=== PATIENT | male | born 1975 | race Caucasian/White ===

== ENCOUNTER 2025-06-26 10:24 | Emergency (ER) | payer MEDICAID, SELFPAY ==
[2025-06-26 10:26] VITALS: BP 139/97; PULSE 78; RESP 20; TEMP 37.2; O2SAT 100; BMI 20.7
--- NOTE | 2025-06-26 10:37 | EX.ED.DYSGE1 ---
HPI History of Present Illness Chief Complaint: General Illness Informant: patient Onset/Context/Timing Onset: Today Context: Sudden Onset Timing: Continuous Quality: Pressure Location: Head Worsened by: Nothing Relieved by: Nothing Narrative Narrative: Patient presents with episodes of unresponsiveness that occurred this morning. Patient lives in an extended care facility. Patient admits to a generalized headache. Patient describes it as a pressure. Patient states it is diffuse across his entire head. Patient states he has had fevers up to 102. Patient also admits to some blurred vision. Patient states he also has pain in his neck. Patient denies any chest pain or shortness of breath. Patient denies any cough. Patient denies any nausea or vomiting PFSH PFSH Home Medications ?Medication ?Instructions ?Recorded ?Last Taken ?Type bupropion HCl 150 mg 24 hr tablet, 150 mg PO DAILY 03/09/16 Unknown History extended release hydrocodone-acetaminophen 5-325mg 1 - 2 tab PO Q4H PRN PRN Pain ##20 03/09/16 Unknown Rx 5mg-325mg naproxen 500 mg tablet 500 mg PO BID #20 tabs 03/09/16 Unknown Rx Allergy/AdvReac Type Severity Reaction Status Date / Time No Known Allergies Allergy Verified 03/09/16 17:14 Social History Smoking Status: Current every day smoker tobacco type: cigarettes ROS ROS ED Constitutional Constitutional ED: Reports fever(s); Denies chills Eyes Eyes: Reports blurry vision; Denies change in vision ENT ENT ED: Denies rhinorrhea or sore throat Cardiovascular Cardiovascular: Denies chest pain or palpitations Respiratory/Chest Respiratory/Chest: Denies cough or dyspnea Gastrointestinal Gastrointestinal: Denies nausea or vomiting Genitourinary Genitourinary ED: Denies dysuria or hematuria Musculoskeletal Musculoskeletal: Reports neck pain; Denies back pain Integumentary Denies abscess or rash Neurologic Neurologic: Denies headache(s) or weakness Allergic/Immunologic Allergic/Immunologic ED: Denies mouth swelling or urticaria EXAM Physical Exam Const Vital Signs: 06/26/25 10:26 06/26/25 10:26 06/26/25 12:25 Temperature 98.9 F Temperature Source Oral Pulse Rate 78 67 Respiratory Rate 20 H 19 H Respiratory Effort Normal Non-Labored Respiratory Pattern Normal Blood Pressure 139/97 H 141/88 H Blood Pressure Mean 111 105 Pulse Ox 100 95 Oxygen Delivery Method Room Air Room Air 06/26/25 14:03 Temperature Temperature Source Pulse Rate 68 Respiratory Rate 20 H Respiratory Effort Respiratory Pattern Blood Pressure 137/83 H Blood Pressure Mean 101 Pulse Ox 99 Oxygen Delivery Method Room Air Positive well nourished and well developed General Appearance ED: well developed and NAD HEENT Reports moist mucous membranes Eyes PERRL and EOMs intact bilaterally Neck supple and no JVD Resp normal respiratory effort and clear to auscultation bilaterally Cardio regular rate and regular rhythm GI non-tender and non-distended Palpation: soft Extremity normal to inspection Neuro oriented x3 and CN's II-XII intact bilaterally Sensorium / Orientation: alert Motor Exam: strength 5/5 throughout Psych Mood & Affect: depressed MDM MDM MDM Narrative Medical decision making narrative: Differential diagnosis includes intracranial bleeding, stroke, electrolyte abnormality, tension headache, migraine headache, sinusitis, sepsis, urinary tract infection, and anxiety. CT scan of the brain will be obtained to assess for intracranial bleeding and stroke. CBC will be obtained to assess for leukocytosis and anemia. Basic metabolic profile will be obtained to assess for electrolyte abnormality and renal function. Serum lactate will be obtained to assess for sepsis. Urinalysis will be obtained to assess for urinary tract infection and hematuria. Lab Data Attestation: I reviewed the patient's lab results. Lab results narrative: CBC was reviewed. There is a mild leukocytosis of 12.1. There is a mild anemia with a hemoglobin of 11.9 and hematocrit of 36.5. Basic metabolic profile was reviewed and was within normal limits. PT was INR and PTT were reviewed and were within normal limits. Serum lactate was reviewed and was less than 1.0. Urinalysis was reviewed. There is no evidence of urinary tract infection or hematuria. Labs: Laboratory Results - last 24 hr 06/26/25 06/26/25 11:15 13:30 WBC 12.1 H RBC 4.04 L Hgb 11.9 L Hct 36.5 L MCV 90.3 MCH 29.5 MCHC 32.6 RDW Std Deviation 47.6 H RDW Coeff of Dyllan 14.3 Plt Count 252 MPV 11.7 Immature Gran % (Auto) 0.300 Neut % (Auto) 56.4 Lymph % (Auto) 17.6 L Jenkins % (Auto) 6.7 Eos % (Auto) 18.8 H Baso % (Auto) 0.2 Absolute Neuts (auto) 6.8 Absolute Lymphs (auto) 2.12 Nucleated RBC % 0 Platelet Estimate ADEQUATE PT 12.7 INR 0.9 APTT 24.0 L Sodium 141 Potassium 4.3 Chloride 106 Carbon Dioxide 23.6 Anion Gap 12 BUN 12 Creatinine 0.60 L Estim Creat Clear Calc 129.17 Est GFR (MDRD) Non-Af 118 BUN/Creatinine Ratio 19.4 Glucose 94 Lactic Acid < 1.0 Calcium 9.6 Urine Color Yellow Urine Clarity Clear Urine pH 6.0 Ur Specific [place] 1.010 Urine Protein Negative Urine Glucose (UA) Normal Urine Ketones Negative Urine Occult Blood Negative Urine Nitrite Negative Urine Bilirubin Negative Urine Urobilinogen Normal Ur Leukocyte Esterase Negative Urine RBC 0-5 SEEN Urine WBC 0-5 SEEN Ur Squamous Epith Cells 0-5 SEEN Urine Bacteria 0 SEEN Urine Mucus 0 SEEN Radiography Chest X-Ray - ED: 2 View, Read by ED Physician, Read by Radiologist and No Acute Disease Diagnostic Testing: Clinical Impression(s) from Imaging Studies Chest X-Ray 06/26/25 10:49 IMPRESSION: NO ACUTE FINDINGS. Reading Location: [id number] Brain CT 06/26/25 11:25 IMPRESSION: 1. No acute intracranial hemorrhage, midline shift or mass effect. If symptoms persist, further evaluation with MRI is recommended. 2. Mild small vessel ischemic/degenerative changes. Reading [facility] and lateral chest x-ray was obtained. There are 2 views. On my independent interpretation, lung dsouza are clear. There is normal cardiac silhouette. Bony thorax is normal. There is no acute process noted. Radiologist also interpreted the x-ray and agrees. CT scan of the brain was obtained. There is no acute intracranial abnormality. There are mild chronic changes. This was interpreted by the radiologist and was also independently reviewed by myself. Treatment and Re-Evaluation :: Patient was given IV fluids, Reglan, and Benadryl. Patient is resting comfortably on reevaluation. Patient was advised of his findings. Patient is eating and tolerating his diet well. Patient was instructed to drink plenty of fluids. Patient was instructed to follow-up with his primary care physician in 5 to 7 days. Patient was instructed to return if worse in any way. Patient understood and was agreeable with the plan. All questions were answered. Case was also discussed with the daughter by phone. She was advised of the patient's findings. She reports that the patient had a finding of Warnicke's encephalopathy in the past on an MRI. She was agreeable to having the patient discharged back to extended-care facility. All questions were answered. Discharge Plan Triage Chief Complaint: General Illness ED Provider: Anthony Davila Dx/Rx/DC Orders Clinical Impression: Headache, Elevated blood pressure reading Instructions: ED, Migraine (Classical) Prescriptions: No Action bupropion HCl 150 MG tablet extended release 24 hr 150 mg PO DAILY hydrocodone-acetaminophen 1 TABLET tablet 1 - 2 tab PO Q4H PRN PRN (Reason: Pain) Qty: 20 0RF naproxen 500 MG tablet 500 mg PO BID Qty: 20 0RF Primary Care Provider: Care Physician,No Primary Referrals: Amparo Calero MD [Non-Staff] - Care Physician,No Primary [Primary Care Provider] - 5-7 Days Print Language: Italian Disposition Disposition: Home, Self Care
--- NOTE | 2025-06-26 10:49 | RAD_ITS ---
PROCEDURE: CHEST PA AND LATERAL 06/26/2025 REASON FOR EXAM: FEVER TECHNIQUE: CHEST PA AND LATERAL COMPARISON: None FINDINGS: Hardware: EKG electrodes are seen. Heart: The heart size is normal. Mediastinum: The mediastinal contour is unremarkable. Lungs: The lungs are clear. Bones: The bones are unremarkable. RAD/Chest PA and Lateral IMPRESSION: NO ACUTE FINDINGS. Reading Location: [id number]
[2025-06-26] MEDS: DiphenhydrAMINE 50 MG/ML Syringe 25 MG IV (11:15)
[2025-06-26] MEDS: 0.9% Normal Saline (1000mL) 1,000 ML 1000 ML IV (11:16)
[2025-06-26 11:24] LABS: Hematocrit 36.5 % (40-54); Hemoglobin 11.9 g/dL (13.0-16.5); Immature Granulocytes Count 0.040 X10^3/uL (0.0-0.0); Mean Corp Hgb Conc 32.6 g/dL (32-36); Mean Corpuscular Volume 90.3 fL (80-94); Mean Platelet Vol. 11.7 fl (6.2-12.0); NRBC Flagged by Analyzer 0 % (0-5); POSITIVE DIFFERENTIAL YES; Platelet Count 252 K/mm3 (150-450); RBC Distribution Width CV 14.3 % (11.6-14.6); RBC Distribution Width SD 47.6 fl (35.1-43.9); Red Blood Count 4.04 M/mm3 (4.6-6.2); White Blood Count 12.1 K/mm3 (4.4-11.0)
[2025-06-26 11:25] LABS: Differential Indicated SCAN CRITERIA MET
--- NOTE | 2025-06-26 11:25 | CT_ITS ---
EXAM: CT Head Without Intravenous Contrast CLINICAL INDICATION: HEADACHE TECHNIQUE: Axial computed tomography images of the head/brain without intravenous contrast. This CT exam was performed using one or more of the following dose reduction techniques: automated exposure control, adjustment of the mA and/or kV according to patient size, and/or use of iterative reconstruction technique. COMPARISON: No relevant prior studies available. FINDINGS: BRAIN AND EXTRA-AXIAL SPACES: The cerebral and cerebellar sulci are mildly prominent consistent with mild brain atrophy. No acute intracranial hemorrhage, midline shift or mass effect. If symptoms persist, further evaluation with MRI is recommended. Mild areas of decreased attenuation in the deep cerebral white matter are consistent with mild small vessel ischemic/degenerative changes. BONES/JOINTS: Unremarkable. No acute fracture. SOFT TISSUES: Unremarkable. SINUSES: Unremarkable as visualized. No acute sinusitis. MASTOID AIR CELLS: Unremarkable as visualized. No mastoid effusion. CT/Brain/Head without Contrast IMPRESSION: 1. No acute intracranial hemorrhage, midline shift or mass effect. If symptoms persist, further evaluation with MRI is recommended. 2. Mild small vessel ischemic/degenerative changes. Reading [facility]
[2025-06-26 11:32] LABS: Prothrombin Time (Protime)PT. 12.7 SECONDS (11.7-14.9)
[2025-06-26 11:33] LABS: Partial Thromboplast Time 24.0 Seconds (24.1-36.2)
[2025-06-26 12:16] LABS: Anion Gap 12 (5-15); BUN 12 mg/dL (4-19); BUN/Creat Ratio 19.4 RATIO (10-20); Calcium,Total 9.6 mg/dL (7.6-11.0); Carbon Dioxide 23.6 mmol/L (21.0-32.0); Chloride 106 mmol/L (98-108); Estimated Creatinine Clearance 129.17 ml/min (50-250); Glucose 94 mg/dL (70-99); Potassium 4.3 mmol/L (3.3-5.1)
[2025-06-26 12:25] VITALS: BP 141/88; PULSE 67; RESP 19; O2SAT 95
[2025-06-26 13:39] LABS: Mucous, Urine 0 SEEN /hpf (<or=2+)
[2025-06-26 13:42] LABS: Color, Urine Yellow (Yellow); Glucose, Dipstick Normal (Normal); Ketone-Dipstick Negative (Negative); Leukocyte Esterase-Dipstick Negative /ul (Negative); Nitrite-Dipstick Negative (Negative); Occult Blood-Urine Negative /ul (Negative); Protein-Dipstick Negative (Negative); Specific Gravity, Urine 1.010 (1.002-1.030); Urine Bilirubin Dipstick Negative (Negative)
[2025-06-26 14:03] VITALS: BP 137/83; PULSE 68; RESP 20; O2SAT 99
[2025-06-26 14:21] LABS: Red Blood Cells-Urine 0-5 SEEN /hpf (0-5); Squamous Epithelial Cells - UA 0-5 SEEN /hpf (0-5)
--- NOTE | 2025-06-26 15:39 | ED.RN ---
Pt gives verbal consent for Dr. Davila to discuss results and prognosis with his daughter Maria Fernanda.
[2025-06-26 16:12] VITALS: BP 128/72; PULSE 78; RESP 18; TEMP 36.6; O2SAT 95
--- NOTE | 2025-06-26 16:39 | ED.RN ---
This RN called report to Kishan at [facility].
== END 2025-06-26 16:45 | disposition home or self-care (01) ==
PROVIDERS: Emergency Provider Emergency Medicine; Visit Provider Emergency Medicine
DX: R51.9 Headache, unspecified (principal); R03.0 Elevated blood-pressure reading, without diagnosis of hypertension; M54.2 Cervicalgia; F17.210 Nicotine dependence, cigarettes, uncomplicated; Z79.899 Other long term (current) drug therapy
CPT/HCPCS: 70450; 71046; 80048; 81001; 83605; 85025; 85610; 85730; 87631; 96361; 96374; 96375; 99285

== ENCOUNTER 2025-07-22 19:17 | Emergency (ER) | payer MEDICAID, SELFPAY ==
[2025-07-22 19:21] VITALS: BP 122/94; PULSE 79; RESP 16; TEMP 36.9; O2SAT 98; BMI 22.6
--- NOTE | 2025-07-22 19:42 | CT_ITS ---
PROCEDURE: CT BRAIN/HEAD WITHOUT CONTRAST 07/22/2025 REASON FOR EXAM: NEW ONSET SEIZURE, HEAD TRAUMA TECHNIQUE: Procedure Code: CTBR Modality: CT Procedure: BRAIN/HEAD WITHOUT CONTRAST Coronal and Sagittal reconstruction series were provided. One or more dose reduction techniques were used (e.g., Automated exposure control, adjustment of the mA and/or kV according to patient size, use of iterative reconstruction technique. RADIATION DOSE SUMMARY: DLP: 1167.29 mGycm COMPARISON: 06/26/2025 FINDINGS: Similar appearance of parenchymal hypoattenuation involving the posterior right frontoparietal cortex mainly involving the postcentral gyrus, most likely subacute-chronic ischemic infarct. Mild chronic microangiopathic changes elsewhere in the supratentorial white matter. No acute intracranial hemorrhage, extra-axial collection, mass-effect, or hydrocephalus. Unremarkable orbits. Atherosclerotic vascular calcifications. Intact skull base and calvarium. Well-aerated paranasal sinuses and bilateral mastoid air cells. CT/Brain/Head without Contrast IMPRESSION: No evidence of acute intracranial pathology. Stable appearing probable subacute-chronic infarct involving the posterior righ t frontoparietal cortex. Reading Location: [facility]
--- NOTE | 2025-07-22 19:42 | CT_ITS ---
PROCEDURE: SPINE CERVICAL WITHOUT CONTRAS 07/22/2025 REASON FOR EXAM: NECK PAIN STATUS POST FALL TECHNIQUE: Procedure Code: CTSPC Modality: CT Procedure: SPINE CERVICAL WITHOUT CONTRAS Coronal and Sagittal reconstruction series were provided. One or more dose reduction techniques were used (e.g., Automated exposure control, adjustment of the mA and/or kV according to patient size, use of iterative reconstruction technique. RADIATION DOSE SUMMARY: CTDlvol: 2 1 mGy DLP: 371 mGycm FINDINGS: No evidence acute fracture or dislocation. Vertebral body heights are maintained. Mild degenerative changes of the visualized spine. Normal alignment. Atherosclerosis. CT/Spine Cervical without Contras IMPRESSION: No acute cervical spine fracture. Reading Location: [id number]
[2025-07-22 19:44] LABS: Hematocrit 35.9 % (40-54); Hemoglobin 11.6 g/dL (13.0-16.5); Immature Granulocytes Count 0.050 X10^3/uL (0.0-0.0); Mean Corp Hgb Conc 32.3 g/dL (32-36); Mean Corpuscular Volume 87.1 fL (80-94); Mean Platelet Vol. 11.1 fl (6.2-12.0); NRBC Flagged by Analyzer 0 % (0-5); Platelet Count 309 K/mm3 (150-450); RBC Distribution Width CV 14.2 % (11.6-14.6); RBC Distribution Width SD 45.3 fl (35.1-43.9); Red Blood Count 4.12 M/mm3 (4.6-6.2); White Blood Count 11.9 K/mm3 (4.4-11.0)
--- NOTE | 2025-07-22 19:53 | EX.ED.DYSGE1 ---
HPI History of Present Illness Chief Complaint: Seizure [facility] Medical History (Updated 07/22/25 @ 21:[address] Kyle Lewis MD) Falls Abnormal gait Wernicke encephalopathy CVA (cerebral vascular accident) Hemiparesis Hemiplegia Malnutrition GERD (gastroesophageal reflux disease) Anxiety Depression Alcohol abuse HTN (hypertension) Home Medications ?Medication ?Instructions ?Recorded ?Last Taken ?Type bupropion HCl 150 mg 24 hr tablet, 150 mg PO DAILY 03/09/16 Unknown History extended release acetaminophen 325 mg capsule 650 mg PO Q4H PRN fever or pain 07/22/25 Unknown History acetaminophen 650 mg rectal 650 mg MT Q4H 07/22/25 Unknown History suppository aspirin 81 mg capsule 81 mg PO DAILY 07/22/25 Unknown History atorvastatin 80 mg tablet (Lipitor) 80 mg PO QHS 07/22/25 Unknown History clonazepam 0.5 mg tablet (Klonopin) 0.5 mg PO BID 07/22/25 Unknown History escitalopram oxalate 10 mg tablet 10 mg PO DAILY 07/22/25 Unknown History (Lexapro) folic acid 1 mg tablet 1 mg PO DAILY 07/22/25 Unknown History levetiracetam 500 mg tablet 500 mg PO BID #60 tabs 07/22/25 Unknown Rx (Keppra) metoprolol tartrate 25 mg tablet 25 mg PO BID 07/22/25 Unknown History multivitamin (Daily Multi-Vitamin 1 tab PO DAILY 07/22/25 Unknown History tablet) pantoprazole 40 mg tablet,delayed 40 mg PO DAILY 07/22/25 Unknown History release thiamine HCl (vitamin B1) 100 mg 100 mg PO DAILY 07/22/25 Unknown History tablet tramadol 50 mg tablet 50 mg PO Q8H 07/22/25 Unknown History Allergy/AdvReac Type Severity Reaction Status Date / Time No Known Allergies Allergy Verified 07/22/25 19:19 Social History Smoking Status: Current every day smoker tobacco type: cigarettes EXAM Physical Exam Const Vital Signs: 07/22/25 19:21 07/22/25 19:59 Temperature 98.5 F Temperature Source Oral Pulse Rate 79 75 Respiratory Rate 16 14 Blood Pressure 122/94 H 124/82 H Blood Pressure Mean 103 96 Pulse Ox 98 100 Oxygen Delivery Method Room Air Room Air [facility] MDM Lab Data Attestation: I reviewed the patient's lab results. Lab results narrative: CBC reveals slightly elevated white count and mild anemia. Electrolyte panel reveals a normal CO2 anion gap. Glucose slight elevated 117. BUN to creatinine ratio slightly elevated. Labs: Laboratory Results - last 24 hr 07/22/25 19:36 WBC 11.9 H RBC 4.12 L Hgb 11.6 L Hct 35.9 L MCV 87.1 MCH 28.2 MCHC 32.3 RDW Std Deviation 45.3 H RDW Coeff of Dyllan 14.2 Plt Count 309 MPV 11.1 Immature Gran % (Auto) 0.400 Neut % (Auto) 53.9 Lymph % (Auto) 25.0 [place] % (Auto) 8.2 Eos % (Auto) 12.1 H Baso % (Auto) 0.4 Absolute Neuts (auto) 6.4 Absolute Lymphs (auto) 2.98 Nucleated RBC % 0 Sodium 141 Potassium 4.6 Chloride 106 Carbon Dioxide 23.8 Anion Gap 11 BUN 22 H Creatinine 0.70 Estim Creat Clear Calc 120.54 Est GFR (MDRD) Non-Af 112 BUN/Creatinine Ratio 32.0 H Glucose 114 H Calcium 9.7 Radiography Diagnostic Testing: Clinical Impression(s) from Imaging Studies Brain CT 07/22/25 19:42 IMPRESSION: No evidence of acute intracranial pathology. Stable appearing probable subacute-chronic infarct involving the posterior right frontoparietal cortex. Reading Location: [facility] Cervical Spine CT 07/22/25 19:42 IMPRESSION: No acute cervical spine fracture. Reading Location: [id number] CT of the head and cervical spine was [place] by ky [place] [address]. CT of the head reveals prior left hemispheric stroke. There is no evidence of acute bleed. There is no evidence of fracture. There is no fluid in the sinuses. The cervical spine CT reveals no fracture, subluxation dislocation. There is no prevertebral soft tissue swelling noted. Treatment and Re-Evaluation :: Patient was loaded with Keppra. He was discharged prescription for Keppra. Daughter who is the POA and a nurse informing that he also has Warnicke's encephalopathy. He was diagnosed with that in April. That may be the cause of his seizure as well as the fact that he had a stroke earlier this year. Discharge Plan Triage Chief Complaint: Seizure ED Provider: Kyle Lewis Dx/Rx/DC Orders Clinical Impression: New onset seizure with history of head trauma, Wernicke encephalopathy, Neuropathy, Acute cervical myofascial strain Instructions: ED Seizure New [facility] Adult Prescriptions: New levetiracetam [Keppra] 500 mg tablet 500 mg PO BID Qty: 60 0RF No Action bupropion HCl 150 MG tablet extended release 24 hr 150 mg PO DAILY acetaminophen 650 mg suppository 650 mg MT Q4H acetaminophen 325 mg capsule 650 mg PO Q4H PRN (Reason: fever or pain) aspirin 81 mg capsule 81 mg PO DAILY atorvastatin [Lipitor] 80 mg tablet 80 mg PO QHS clonazepam [Klonopin] 0.5 mg tablet 0.5 mg PO BID folic acid 1 mg tablet 1 mg PO DAILY escitalopram oxalate [Lexapro] 10 mg tablet 10 mg PO DAILY metoprolol tartrate 25 mg tablet 25 mg PO BID multivitamin [Daily Multi-Vitamin] Tablet 1 tab PO DAILY pantoprazole 40 mg tablet,delayed release (DR/EC) 40 mg PO DAILY thiamine HCl (vitamin B1) 100 mg tablet 100 mg PO DAILY tramadol 50 mg tablet 50 mg PO Q8H Primary Care Provider: Amadeo Zazueta Referrals: Care Physician,No Primary [Non-Staff] - Activity Restrictions/Additional Instructions: The [facility] facility physician will need to check a Keppra level in 1 week. Print Language: Afghan Disposition Disposition: Home, Self Care
[2025-07-22] MEDS: LEVETIRACETAM IV (19:58)
[2025-07-22] MEDS: NORMAL SALINE 0.9% IV (19:58)
[2025-07-22 19:59] VITALS: BP 124/82; PULSE 75; RESP 14; O2SAT 100
[2025-07-22 20:18] LABS: Anion Gap 11 (5-15); BUN 22 mg/dL (4-19); BUN/Creat Ratio 32.0 RATIO (10-20); Calcium,Total 9.7 mg/dL (7.6-11.0); Carbon Dioxide 23.8 mmol/L (21.0-32.0); Chloride 106 mmol/L (98-108); Estimated Creatinine Clearance 120.54 ml/min (50-250); Glucose 114 mg/dL (70-99); Potassium 4.6 mmol/L (3.3-5.1)
[2025-07-22] MEDS: HYDROcodone Bitartrate/Apap 5/325 Tablet PO (20:50)
[2025-07-22 22:00] VITALS: BP 118/94; PULSE 75; RESP 12
[2025-07-22 22:20] VITALS: BP 126/92; PULSE 84; RESP 18; TEMP 36.8; O2SAT 98
[2025-07-22 23:00] VITALS: BP 125/92
== END 2025-07-22 23:06 | disposition home or self-care (01) ==
PROVIDERS: Emergency Provider Emergency Medicine; Visit Provider Emergency Medicine
DX: R56.9 Unspecified convulsions (principal); I69.359 Hemiplegia and hemiparesis following cerebral infarction affecting unspecified side; I10 Essential (primary) hypertension; F32.A Depression, unspecified; Z79.899 Other long term (current) drug therapy; Z79.82 Long term (current) use of aspirin; F41.9 Anxiety disorder, unspecified; K21.9 Gastro-esophageal reflux disease without esophagitis; F17.210 Nicotine dependence, cigarettes, uncomplicated; E51.2 Wernicke's encephalopathy; G62.9 Polyneuropathy, unspecified; S16.1XXA Strain of muscle, fascia and tendon at neck level, initial encounter; E78.00 Pure hypercholesterolemia, unspecified
CPT/HCPCS: 70450; 72125; 80048; 85025; 96365; 99285; A4216

== ENCOUNTER 2025-07-27 23:44 | Emergency (ER) | payer MEDICAID, SELFPAY ==
[2025-07-27 23:44] VITALS: BP 114/83; PULSE 62; RESP 16; TEMP 36.7; O2SAT 99; BMI 21.8
--- NOTE | 2025-07-28 00:01 | EDS_ITS ---
HPI History of Present Illness Chief Complaint: Seizure Informant: patient Onset/Context/Timing Onset: Today Context: Sudden Onset Timing: Intermittent Quality: Dizzy Location: Generalized Worsened by: Nothing Relieved by: Nothing Narrative Narrative: Patient presents with a seizure that occurred today. Patient states he remembers feeling dizzy. Patient states the next thing he remembers is waking up with people around him. Patient denies biting his tongue. Patient denies any loss of bowel or bladder control. Patient admits to a headache. Patient states he felt like he had a fever earlier today. Patient states nothing seems to bring this on. Patient is on Keppra for seizures. Patient was recently started on this earlier this month. Patient states he has been compliant with this. Patient states he has not missed any doses. [facility] Medical History Seizure Falls Abnormal gait Wernicke encephalopathy CVA (cerebral vascular accident) Hemiparesis Hemiplegia Malnutrition GERD (gastroesophageal reflux disease) Anxiety Depression Alcohol abuse HTN (hypertension) Home Medications ?Medication ?Instructions ?Recorded ?Last Taken ?Type acetaminophen 325 mg capsule 650 mg PO Q4H PRN fever o r pain 07/22/25 Unknown History acetaminophen 650 mg rectal 650 mg NE Q4H 07/22/25 Unk nown History suppository aspirin 81 mg capsule 81 mg PO DAILY 07/22/25 Unkn own History atorvastatin 80 mg tablet (Lipitor) 80 mg PO QHS 07/22 Unknown History clonazepam 0.5 mg tablet (Klonopin) 0.5 mg PO BID 07/07 04/30 Unknown History escitalopram oxalate 10 mg tablet 10 mg PO DAILY 07/22 Unknown History (Lexapro) folic acid 1 mg tablet 1 mg PO DAILY 07/22/25 Unkno wn History levetiracetam 500 mg tablet 500 mg PO BID #60 tabs Unknown Rx (Keppra) metoprolol tartrate 25 mg tablet 25 mg PO BID 07/22/25 Unknown History multivitamin (Daily Multi-Vitamin 1 tab PO DAILY 07/22 Unknown History tablet) pantoprazole 40 mg tablet,delayed 40 mg PO DAILY 07/22 Unknown History release thiamine HCl (vitamin B1) 100 mg 100 mg PO DAILY 07/22 Unknown History tablet tramadol 50 mg tablet 50 mg PO Q8H 07/22/25 Unknow n History Allergy/AdvReac Type Severity Reaction Status Date / Time No Known Allergies Allergy Verified 07/27/25 23:44 Surgical History no surgical history no surgical history Social History (Updated 07/28/25 @ 00:[address] Anthony Davila, DO) Smoking Status: Current every day smoker tobacco type: cigarettes substance use type: marijuana ROS ROS ED Constitutional Constitutional ED: Reports fever(s) and subjective; Denies chills Eyes Eyes: Denies blurry vision or change in vision ENT ENT ED: Denies rhinorrhea or sore throat Cardiovascular Cardiovascular: Denies chest pain or palpitations Respiratory/Chest Respiratory/Chest: Denies cough or dyspnea Gastrointestinal Gastrointestinal: Reports nausea; Denies vomiting Genitourinary Genitourinary ED: Denies dysuria or hematuria Musculoskeletal Musculoskeletal: Reports neck pain; Denies back pain Integumentary Denies abscess or rash Neurologic Neurologic: Reports headache(s); Denies weakness Allergic/Immunologic Allergic/Immunologic ED: Denies mouth swelling or urticaria EXAM Physical Exam Const Vital Signs: 07/27/25 23:44 07/28/25 00:24 07/28/25 02:00 Temperature 98.1 F Temperature Source Oral Pulse Rate 62 56 L 81 Respiratory Rate 16 12 18 Blood Pressure 114/83 H 116/81 H 99/81 H Blood Pressure Mean 93 92 87 Pulse Ox 99 98 98 Oxygen Delivery Method Room Air Room Air Room Air Positive well nourished and well developed General Appearance ED: well developed and NAD HEENT Reports moist mucous membranes Neck Neck Narrative: There is mild tenderness over the cervical paraspinal muscles. There is no midline tenderness. There is no bony crepitance or step-off. Range of motion was limited in all motions of the cervical spine secondary to pain. Resp normal respiratory effort and clear to auscultation bilaterally Cardio regular rate and regular rhythm GI non-tender and non-distended Palpation: soft Extremity normal to inspection Neuro oriented x3, CN's II-XII intact bilaterally and no sensory deficits noted Sensorium / Orientation: alert Motor Exam: strength 5/5 throughout Psych mental status grossly normal MDM MDM MDM Narrative Medical decision making narrative: Differential diagnosis includes breakthrough seizure, medication noncompliance, electrolyte abnormality, intracranial bleeding, and dehydration. CBC will be obtained to assess for leukocytosis and anemia. Basic metabolic profile will be obtained to assess for electrolyte abnormality and renal function. Keppra level will be obtained to assess for medication compliance. CT scan of the brain will be obtained to assess for intracranial bleeding. CT scan of the cervical spine will be obtained to assess for cervical fracture and spondylolisthesis. History & Record Review Additional record(s) reviewed:: Prior ED visit and Prior labs Lab Data Attestation: I reviewed the patient's lab results. Lab results narrative: CBC was reviewed. There is a slight leukocytosis of 12.9. There is a mild anemia with a hemoglobin of 12.7 and hematocrit 38.6. These are consistent with previous results. Basic metabolic profile was reviewed and was essentially within normal limits. Labs: Laboratory Results - last 24 hr 07/28/25 00:01 WBC 12.9 H RBC 4.49 L Hgb 12.7 L Hct 38.6 L MCV 86.0 MCH 28.3 MCHC 32.9 RDW Std Deviation 43.4 RDW Coeff of Dyllan 13.9 Plt Count 324 MPV 11.7 Immature Gran % (Auto) 0.600 Neut % (Auto) 59.5 Lymph % (Auto) 25.7 [place] % (Auto) 7.4 Eos % (Auto) 6.3 H Baso % (Auto) 0.5 Absolute Neuts (auto) 7.7 Absolute Lymphs (auto) 3.32 Nucleated RBC % 0 Sodium 138 Potassium 4.2 Chloride 103 Carbon Dioxide 23.7 Anion Gap 11 BUN 18 Creatinine 0.65 L Estim Creat Clear Calc 125.38 Est GFR (MDRD) Non-Af 115 BUN/Creatinine Ratio 27.5 H Glucose 99 Calcium 9.6 Radiography Diagnostic Testing: Clinical Impression(s) from Imaging Studies Brain CT 07/28/25 00:11 IMPRESSION: No acute cerebrovascular insult. If clinical symptoms persist, further evaluation with MRI may be considered as clinically warranted. No intracerebral or extra axial hemorrhage Stable right fronto-parietal subacute to chronic infarct. Bilateral cerebral mild microvascular ischemic changes with brain involutional changes. No interval changes. Reading Location: [id number] Cervical Spine CT 07/28/25 00:11 IMPRESSION: Straightened cervical curve denoting myospasm. No vertebral fractures, structural collapse or dislocation. Cervical spondylodegenerative changes with multilevel uncovertebral and facet arthropathy along with diffuse disc bulges inducing spinal canal and neural exit pathway compromise. No interval changes. Reading [facility] scan of the brain was obtained. There is no acute intracranial abnormality. This was interpreted by the radiologist and was also independently reviewed by myself. CT scan of the cervical spine was obtained. There is no acute fracture or spondylolisthesis. There is no soft tissue swelling. There are some degenerative changes noted. This was interpreted by the radiologist and was also independently reviewed by myself. Treatment and Re-Evaluation :: Seizure precautions were maintained. Patient was given IV fluids. Patient was feeling better on reevaluation. Patient had no further seizure activity here. Patient was advised that his Keppra level was a send out and will not be resulted tonight. Patient was instructed to follow-up with his primary care physician in 5 to 7 days. Patient was instructed to return if worse in any way. Patient understood and was agreeable with the plan. All questions were answered. Discharge Plan Triage Chief Complaint: Seizure ED Provider: Anthony Davila Dx/Rx/DC Orders Clinical Impression: Seizure, Wernicke encephalopathy Instructions: ED Seizure, Recurrent (Adult) Prescriptions: No Action acetaminophen 650 mg suppository 650 mg NE Q4H acetaminophen 325 mg capsule 650 mg PO Q4H PRN (Reason: fever or pain) aspirin 81 mg capsule 81 mg PO DAILY atorvastatin [Lipitor] 80 mg tablet 80 mg PO QHS clonazepam [Klonopin] 0.5 mg tablet 0.5 mg PO BID folic acid 1 mg tablet 1 mg PO DAILY escitalopram oxalate [Lexapro] 10 mg tablet 10 mg PO DAILY metoprolol tartrate 25 mg tablet 25 mg PO BID multivitamin [Daily Multi-Vitamin] Tablet 1 tab PO DAILY pantoprazole 40 mg tablet,delayed release (DR/EC) 40 mg PO DAILY thiamine HCl (vitamin B1) 100 mg tablet 100 mg PO DAILY tramadol 50 mg tablet 50 mg PO Q8H levetiracetam [Keppra] 500 mg tablet 500 mg PO BID Qty: 60 0RF Primary Care Provider: Amadeo Zazueta Referrals: Amadeo Zazueta DO [Primary Care Provider, Medical] - 5-7 Days Print Language: Upper Sorbian Disposition Disposition: Home, Self Care
--- NOTE | 2025-07-28 00:11 | CT_ITS ---
PROCEDURE: SPINE CERVICAL WITHOUT CONTRAS 07/28/2025 REASON FOR EXAM: INJURY/PAIN TECHNIQUE: Procedure Code: CTSPC Modality: CT Procedure: SPINE CERVICAL WITHOUT CONTRAS Coronal and Sagittal reconstruction series were provided. One or more dose reduction techniques were used (e.g., Automated exposure control, adjustment of the mA and/or kV according to patient size, use of iterative reconstruction technique. RADIATION DOSE SUMMARY: CTDlvol: 2 1 mGy DLP: 371 mGycm COMPARISON: 22-Jul-2025 FINDINGS: Straightened cervical curve denoting myospasm. The examined vertebral bodies show no structural collapse or posterior neural elements fractures. Intact atlanto-axial interval. Degenerative changes of the atlanto-odontoid articulation with related capsular calcifications. Multilevel small marginal osteophytic lipping and subchondral sclerosis of the examined vertebral end plates. Multilevel degenerative unco-vertebral arthropathy with osteophytes formation seen encroaching upon the corresponding neural exit foramina. Multilevel degenerative facet arthropathy. Multilevel diffuse disc bulges with posterior osteophytes and annular calcifications indenting the theca and encroaching upon the related neural exit foramina. No paraspinal masses. Vascular atheromatous calcifications Bilateral upper lung lobes apical reticulations. CT/Spine Cervical without Contras IMPRESSION: Straightened cervical curve denoting myospasm. No vertebral fractures, structural collapse or dislocation. Cervical spondylodegenerative changes with multilevel uncovertebral and facet a rthropathy along with diffuse disc bulges inducing spinal canal and neural exit pathway compromise. No interval changes. Reading Location[facility]
--- NOTE | 2025-07-28 00:11 | CT_ITS ---
PROCEDURE: BRAIN/HEAD WITHOUT CONTRAST 07/28/2025 REASON FOR EXAM: INJURY/PAIN TECHNIQUE: Procedure Code: CTBR Modality: CT Procedure: BRAIN/HEAD WITHOUT CONTRAST Coronal and Sagittal reconstruction series were provided. One or more dose reduction techniques were used (e.g., Automated exposure control, adjustment of the mA and/or kV according to patient size, use of iterative reconstruction technique. RADIATION DOSE SUMMARY: CTDI Vol 44.99 mGy DLP :846.73 mGycm COMPARISON: 22-Jul-2025 FINDINGS: Stable right fronto-parietal cortical and subcortical hypodense area with areas of near CSF like density & associated exvacudilataion of the overlying cortical sulci as well as the related aspect of the lateral ventricle. Accentuated bilateral cerebral periventricular white matter hypodensities denoting hypoperfusion. Normal parenchymal attenuation of the brain stem and cerebellum. No intracerebral or extra axial hemorrhage No definite calvarial fractures. Dilated ventricular system, cortical sulci and extra-axial CSF spaces. No midline shifts or deformity. The osseous structures in the skull base are unremarkable. Paranasal sinuses are unremarkable. Vascular atheromatous calcifications. CT/Brain/Head without Contrast IMPRESSION: No acute cerebrovascular insult. If clinical symptoms persist, further evaluati on with MRI may be considered as clinically warranted. No intracerebral or extra axial hemorrhage Stable right fronto-parietal subacute to chronic infarct. Bilateral cerebral mild microvascular ischemic changes with brain involutional changes. No interval changes. Reading Location: [facility]
[2025-07-28 00:24] VITALS: BP 116/81; PULSE 56; RESP 12; O2SAT 98
[2025-07-28] MEDS: 0.9% Normal Saline (1000mL) 1,000 ML 1000 ML IV (00:27)
[2025-07-28 00:42] LABS: Hematocrit 38.6 % (40-54); Hemoglobin 12.7 g/dL (13.0-16.5); Immature Granulocytes Count 0.080 X10^3/uL (0.0-0.0); Mean Corp Hgb Conc 32.9 g/dL (32-36); Mean Corpuscular Volume 86.0 fL (80-94); Mean Platelet Vol. 11.7 fl (6.2-12.0); NRBC Flagged by Analyzer 0 % (0-5); Platelet Count 324 K/mm3 (150-450); RBC Distribution Width CV 13.9 % (11.6-14.6); RBC Distribution Width SD 43.4 fl (35.1-43.9); Red Blood Count 4.49 M/mm3 (4.6-6.2); White Blood Count 12.9 K/mm3 (4.4-11.0)
[2025-07-28 01:12] LABS: Anion Gap 11 (5-15); BUN 18 mg/dL (4-19); BUN/Creat Ratio 27.5 RATIO (10-20); Calcium,Total 9.6 mg/dL (7.6-11.0); Carbon Dioxide 23.7 mmol/L (21.0-32.0); Chloride 103 mmol/L (98-108); Estimated Creatinine Clearance 125.38 ml/min (50-250); Glucose 99 mg/dL (70-99); Potassium 4.2 mmol/L (3.3-5.1)
[2025-07-28 02:00] VITALS: BP 99/81; PULSE 81; RESP 18; O2SAT 98
[2025-07-28 02:27] VITALS: BP 98/77; PULSE 72; RESP 17; TEMP 36.7; O2SAT 98
[2025-07-30 12:09] LABS: KEPPRA (LEVETIRACETAM) 18.9 ug/mL (10.0-40.0)
== END 2025-07-28 03:50 | disposition home or self-care (01) ==
PROVIDERS: Emergency Provider Emergency Medicine; Visit Provider Emergency Medicine
DX: R56.9 Unspecified convulsions (principal); I69.359 Hemiplegia and hemiparesis following cerebral infarction affecting unspecified side; I10 Essential (primary) hypertension; E51.2 Wernicke's encephalopathy; Z79.899 Other long term (current) drug therapy; Z79.82 Long term (current) use of aspirin; K21.9 Gastro-esophageal reflux disease without esophagitis; F41.9 Anxiety disorder, unspecified; F17.210 Nicotine dependence, cigarettes, uncomplicated
CPT/HCPCS: 70450; 72125; 80048; 80177; 85025; 96360; 96361; 99285; A4216

== ENCOUNTER → 2025-07-29 | Outpatient (REF) | payer MEDICARE, MEDICAID, SELFPAY ==
[2025-08-01 10:09] LABS: KEPPRA (LEVETIRACETAM) 8.5 ug/mL (10.0-40.0)
== END ==
LOC: OLS.SW 05:00
PROVIDERS: Visit Provider Family Medicine
DX: R56.9 Unspecified convulsions (principal)
CPT/HCPCS: 36415; 80177

== ENCOUNTER 2025-08-02 18:48 | Observation (INO) | payer MEDICAID, SELFPAY ==
--- OUTSIDE RECORDS SUMMARY | 2025-05-12 14:55 | XMS RPT_ITS ---
Author Name Auto Generated Organization [facility] Care Team Providers Care Head Of Advertising Name Role Phone Tay Camara Primary Care Unavailabl e Jax, Tay Thomas Attending Unavailabl e Jax, Tay Thomas Primary Care Unavailabl e Jax, Tay Thomas Attending Unavailabl e Jax, Tay Martha Primary Care Unavailabl e Dave, Emeka E Consulting Unavailable Rose Sanchez Attending Unavailable Stuart Madrid Admitting Unavailable Jack Miller Consulting Unav ailable Damion Dale Consulting Unavailable Atiya Laurent Consulting Unavailable Chris Velasquez Consulting Unavailable TeleMedicine, Specialist Psych Consulting U navailable PROBLEMS DATE TYPE CONDITION / CODE ATTENDING STATUS [facility] 05/12/2025 Final diagnosis (discharge) Sepsis, unspecified organism / UNK(Unknown) Rose Sanchez Active [facility] PROCEDURES No Procedure Records Found RESULTS PROGRESS NOTE - ANTIBIOTICS Observed: 7:05 PM Status: F Source: [facility] Records Patient: BHAVINDannyJuan JoséVIANEYDIONNA Delgado [address] : 1975 [place], [place] [address] Location: [phone] Unit #: [id number] Progress Note - Antibiotics Marc Serna (ID) Service Dt/Tm: 05/17/25 180 Antibiotic Note Results: Temperature 98.0 F Lab Results WBC 7.7 th/cmm (4.4-10.5) 05/17/25 04:35 BUN 23 mg/dL (7-20) H 05/17/25 04:35 Creatinine 0.67 mg/dL (0.60-1.30) 05/17/25 04:35 05/13/25 06:54 Blood,Venous Blood Culture - Preliminary No growth after 4 days, cultures held 5 days. 05/13/25 06:44 Blood,Venous Blood Culture - Preliminary No growth after 4 days, cultures held 5 days. 05/14/25 05:30 Sputum - Luki Gram Stain - Final 05/14/25 05:30 Sputum - Luki Sputum Culture - Preliminary Escherichia coli Serratia marcescens Assessment/Plan (1) Diverticulitis: Status: Acute (2) Chronic pancreatitis: Status: Chronic Qualifiers: Pancreatitis type: alcohol induced Qualified Code(s): K86.0 - Alcohol-induced chronic pancreatitis (3) Alcohol withdrawal: Status: Suspected Qualifiers: Complication of substance-induced condition: with delirium Qualified Code(s): F10.931 - Alcohol use, unspecified with withdrawal delirium (4) Alcoholism: Status: Chronic (5) Sinus tachycardia: Status: Resolved Plan * This patient has's alcoholism and chronic pancreatitis as noted in the consultation report * The presence of chronic pancreatitis would not entail the need for antibiotic therapy. However, the patient has diverticulitis. The patient was started on Unasyn to cover this problem. I am not certain about the ascending colon that is. The patient is undergoing workup with the ERCP which should yield more data in that regard. * The patient has sinus tachycardia. This is associated with alcohol withdrawal. These patients may have associated hyperventilation, tachycardia, tremor, hypertension, and diaphoresis. * Sputum culture has 2 Gram negatives. His chest x-rays appear negative. Suspect colonizers. * I think Unasyn is satisfactory, I do not believe that Pseudomonas is a problem in this case. * I may eliminate the patient's colonizes by using nebulization. Today the DEIDRA's are not completed. 0030 Entered by: Marc Serna (ID)MD on 05/17/25 7714 Report Signed by: Marc Serna MD (ID) on 07/08/25 1900 <<Signature on File>> <Electronically signed by Marc Serna (ID) > Report Signed by: on PROGRESS NOTE - ANTIBIOTICS Observed: 7:05 PM Status: F Source: [facility] Records Patient: DIONNA CONCEPCION [address] : 1975 [place], [place] [address] Location: [facility] [phone] Unit #: [id number] Progress Note - Antibiotics Marc Serna (ID) Service Dt/Tm: 05/15/25 0016 Antibiotic Note Results: Temperature 97.6 F Physical Exam General Appearance the patient is intubated. Post intubation his appearance is much improved Vital Signs - 24 hr 05/15/25 00:01 76 20 99 05/15/25 00:00 97.6 F 80 19 120/90 98 30 05/14/25 23:45 68 20 118/79 100 05/14/25 23:30 69 20 119/80 99 05/14/25 23:15 68 20 119/79 99 05/14/25 23:00 72 20 117/78 99 05/14/25 22:50 71 20 116/79 99 05/14/25 22:45 72 20 116/79 99 05/14/25 22:30 72 20 116/77 100 05/14/25 22:18 64 20 110/70 100 05/14/25 21:45 72 20 104/76 99 05/14/25 21:30 74 20 103/72 99 05/14/25 21:15 71 20 102/70 100 05/14/25 21:00 65 20 102/73 100 05/14/25 20:45 66 20 102/75 100 05/14/25 20:30 68 20 104/73 100 05/14/25 20:15 67 20 99/73 100 05/14/25 20:00 40 05/14/25 20:00 66 20 98/67 100 05/14/25 19:51 67 98/69 99 05/14/25 19:45 69 20 98/69 100 05/14/25 19:30 64 20 90/64 99 05/14/25 19:15 71 20 97/71 99 05/14/25 19:00 97.6 F 72 20 94/71 99 40 05/14/25 18:45 75 20 93/70 99 05/14/25 18:30 76 20 90/67 99 40 05/14/25 18:15 78 20 89/64 L 99 05/14/25 18:00 75 20 84/64 L 99 05/14/25 17:45 81 20 84/64 L 99 05/14/25 17:30 85 20 88/67 L 99 05/14/25 17:15 81 20 93/68 99 05/14/25 17:01 74 20 104/76 99 05/14/25 17:00 76 20 99 05/14/25 16:54 71 20 116/79 99 05/14/25 16:45 73 20 117/73 100 05/14/25 16:30 74 20 118/73 99 05/14/25 16:30 97.0 F L 05/14/25 16:15 75 20 111/72 99 05/14/25 16:00 72 20 108/70 99 05/14/25 15:45 78 20 103/70 99 05/14/25 15:30 80 20 102/71 99 05/14/25 15:15 84 20 95/67 99 05/14/25 15:00 86 20 97/71 99 05/14/25 14:45 88 20 92/67 99 05/14/25 14:42 88 18 97/70 99 05/14/25 14:30 95 20 97/70 98 05/14/25 14:24 97 22 H 96/68 98 05/14/25 14:15 98 20 96/69 98 40 05/14/25 14:00 102 H 20 91/65 97 05/14/25 13:45 109 H 20 90/59 L 97 05/14/25 13:30 113 H 20 86/58 L 97 05/14/25 13:26 114 H 21 H 83/60 L 97 05/14/25 13:15 115 H 20 85/60 L 97 05/14/25 13:09 116 H 20 82/59 L 97 05/14/25 13:00 118 H 20 79/56 L 97 05/14/25 12:45 START Unasyn 12:47 118 H 20 76/53 L 96 05/14/25 12:31 119 H 20 77/52 L 96 05/14/25 12:29 118 H 20 79/57 L 96 05/14/25 12:23 121 H 20 84/63 L 98 05/14/25 12:19 124 H 21 H 84/63 L 99 05/14/25 11:39 101.7 F H 05/14/25 11:10 123 H 21 H 91/62 100 05/14/25 11:00 125 H 25 H 91/62 99 05/14/25 10:45 125 H 27 H 96/63 99 05/14/25 10:30 127 H 27 H 106/71 100 05/14/25 10:15 126 H 31 H 116/74 100 05/14/25 10:00 122 H 23 H 106/65 05/14/25 09:57 124 H 32 H 100/77 100 05/14/25 09:44 126 H 35 H 100/77 100 05/14/25 09:30 126 H 36 H 91/69 98 05/14/25 09:27 125 H 35 H 93/64 98 05/14/25 09:15 117 H 34 H 82/53 L 05/14/25 09:13 118 H 36 H 81/54 L 05/14/25 09:00 114 H 33 H 78/56 L 99 05/14/25 08:50 113 H 31 H 85/57 L 99 05/14/25 08:45 114 H 34 H 83/59 L 99 05/14/25 08:16 120 H 34 H 104/67 98 40 05/14/25 08:04 133 H 27 H 115/79 99 05/14/25 08:00 40 05/14/25 07:45 118 H 25 H 100/75 05/14/25 07:40 121 H 28 H 107/78 97 05/14/25 07:30 115 H 22 H 107/78 100 05/14/25 07:15 114 H 24 H 113/79 99 05/14/25 07:00 114 H 23 H 108/81 99 05/14/25 06:50 115 H 26 H 123/84 100 05/14/25 06:40 117 H 28 H 122/87 99 05/14/25 06:36 115 H 21 H 158/85 H 05/14/25 06:31 114 H 18 158/85 H 74 L 05/14/25 06:21 111 H 18 142/98 H 98 07/09/25 06:10 115 H 22 H 128/98 H 98 05/14/25 06:05 117 H 29 H 135/96 H 98 05/14/25 06:00 118 H 23 H 135/96 H 98 05/14/25 05:51 116 H 27 H 97 05/14/25 05:50 116 H 32 H 134/97 H 99 05/14/25 05:45 114 H 27 H 130/97 H 97 05/14/25 05:40 116 H 27 H 137/98 H 98 05/14/25 05:35 115 H 30 H 140/95 H 98 05/14/25 05:30 113 H 28 H 150/99 H 96 05/14/25 05:28 116 H 30 H 142/102 H 96 05/14/25 05:26 101 H 31 H 160/99 H 97 05/14/25 05:24 112 H 14 161/107 H 98 05/14/25 05:22 101 H 22 H 169/107 H 91 05/14/25 05:21 107 H 0 L 168/102 H 93 05/14/25 05:21 20 05/14/25 05:18 123 H 36 H 151/109 H 97 05/14/25 05:16 118 H 35 H 135/100 H 95 05/14/25 05:14 116 H 37 H 123/111 H 96 05/14/25 05:01 115 H 34 H 148/93 H 94 05/14/25 04:45 120 H 38 H 137/98 H 95 05/14/25 04:30 119 H 43 H 139/97 H 94 05/14/25 04:17 121 H 35 H 139/95 H 94 05/14/25 03:57 2 05/14/25 03:15 99.5 F 126 H 42 H 137/96 H 91 2.0 05/14/25 03:00 97.8 F 122 H 36 H 140/92 H 93 05/14/25 01:34 98.5 F 128 H 40 H 131/96 H 92 2.0 Eyes Other - sclera icteric,EOMI - left gaze preference,PERRLA - pupils equally round, reactive ENT Skin Pallor Cardiovascular Tachycardic Rhythm Abdomen Semi-firm - distended, diffuse TTP mid abdomen and RUQ,Tender to palpation,Hypoactive BS Neurologic Moves all extremities - moves all extremities to painful stimuli, left side weakness lower more than upper extremities Psychological Other - obtunded Lab Results WBC 25.4 th/cmm (4.4-10.5) H 05/14/25 22:10 BUN 24 mg/dL (7-20) H 05/14/25 21:42 Creatinine 1.04 mg/dL (0.60-1.30) 05/14/25 21:42 05/14/25 05:30 Sputum - Luki Gram Stain - Final 05/13/25 09:16 Urine catheterized Urine Culture - Preliminary No growth after 1 day. 05/13/25 06:54 Blood,Venous Blood Culture - Preliminary No growth after 1 day, cultures held 5 days. 05/13/25 06:44 Blood,Venous Blood Culture - Preliminary No growth after 1 day, cultures held 5 days. Assessment/Plan (1) Diverticulitis: Status: Acute (2) Chronic pancreatitis: Status: Chronic Qualifiers: Pancreatitis type: alcohol induced Qualified Code(s): K86.0 - Alcohol-induced chronic pancreatitis (3) Alcohol withdrawal: Status: Suspected Qualifiers: Complication of substance-induced condition: with delirium Qualified Code(s): F10.931 - Alcohol use, unspecified with withdrawal delirium (4) Alcoholism: Status: Chronic (5) Sinus tachycardia: Status: Acute Plan * This patient has's alcoholism and chronic pancreatitis as noted in the consultation report * The presence of chronic pancreatitis would not entail the need for antibiotic therapy. However, the patient has diverticulitis. The patient was started on Unasyn to cover this problem. I am not certain about the ascending colon that is. The patient is undergoing workup with the ERCP which should yield more data in that regard. * The patient has sinus tachycardia. This is associated with alcohol withdrawal. These patients may have associated hyperventilation, tachycardia, tremor, hypertension, and diaphoresis. * I expect this patient to go into full delirium tremors.. The patient needs to be closely follow-up for this problem. DT's have a mortality rate of 50%. * Sepsis could be initiated for this patient's case his blood cultures have been monitored and so for they are negative. * I think Unasyn is satisfactory, I do not believe that Pseudomonas is a problem in this case. 0100 Entered by: Marcoctavio Serna MD (ID) on 05/15/25 0016 Report Signed by: Marc Serna MD (ID) on 07/08/25 1904 <<Signature on File>> <Electronically signed by Marc VELEZ) > Report Signed by: on CONSULTATION Observed: 07/08/2025 7:05 PM Status: F Source: [facility] Records Patient: DIONNA CONCEPCION [address] : 1975 [place], [place] [address] Location: [phone] Unit #: [id number] Consultation Marc Serna MD (ID) Service Date: 05/13/25 History of Present Illness Date of Consultation: 05/13/25 Time Seen: 21:24 History of Present Illness: DIONNA CONCEPCION is a 49 yr old M who was admitted on 05/11/25 for RT MCA INFARCT/LT SIDED WEAKNESS. Consultation 05/11/25 16:54 Neurology Consult [Physician Consult Neurology] Routine Comment: Consulting Provider: TeleMedicine,Specialist Neuro Reason for consult: Subacute right MCA infarct Has the consulted physician been notified?: Yes 05/13/25 10:02 Infectious Disease Consult [Physician Consult Infectious Disease] Routine Comment: Consulting Provider: Kareem VELEZ)Marc Reason for consult: sepsis Has the consulted physician been notified?: Yes TV, a 49-year-old male, has been admitted via the [facility] Emergency Department with a history of alcohol abuse. The patient has been drinking off-and-on and apparently has started a drinking binge. He drank approximately 7 beers for the first time the night before the admission and 2 more the morning of. The patient is unable to give much of wound the history. He has been referred for sepsis. The patient was evaluated by the service and he was noted to have findings in his left upper quadrant on the CT scan. This was thought to be consistent with chronic pancreatitis. The patient was also noted to have possible diverticulitis as well. The patient was referred to [facility] for this problem as noted Allergies/Adverse Reactions No Known Drug Allergies Allergy (Verified 05/11/25 15:01) Home Medications amlodipine 10 mg tablet 10 mg PO DAILY 05/11/25 [Confirmed 05/11/25] aspirin 81 mg chewable tablet 1 tab PO DAILY 05/11/25 [Confirmed 05/11/25] Past Medical History Medical History (Updated 05/14/25 @ 07:39 by Chel Cleveland CNP) Smoker Hypertriglyceridemia Hypertension CVA (cerebral vascular accident) left sided defecits Past Surgical History Surgical History (Updated 05/14/25 @ 06:38 by Emeka Acosta MD) No pertinent past surgical history Social History Caffeine Amount: 1-2/Day Current Type of Alcohol: Beer Current Alcohol Amount: Socially/Occasionally Smoking Status: Heavy tobacco smoker Type of Tobacco: Cigarettes Smoking Amount: 1 pack per day Family History Other No pertinent family history Physical Exam Last Vital Signs Temp Pulse Resp BP Pulse Ox 98.7 F 109 H 26 H 142/101 H 97 05/13/25 13:17 05/13/25 14:10 05/13/25 13:17 05/13/25 14:10 05/13/25 14:10 Height (Ft AND In) 5 ft 7 in Admitting (IV Pump) Weight 61.4 kg Actual Weight (Kg) 61.4 kg General Appearance: Other (Disheveled appearance with tremors appreciated. Patient also appears to be diaphoretic with mild hyperventilation.) Eyes: Other (The patient has a blank stare/glare from his eyes) ENT: Normal Inspection Neck: Normal Inspection Skin: Color Normal Cardiovascular: Tachycardic Rhythm and S1 S2 Lungs: Good Air Entry (Difficult examination with patient phonation throughout the exam) Abdomen: Tender to palpation (But no rebound tenderness. 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) Laboratory Last Values Procalcitonin 0.18 ng/mL Suspected Sepsis (Continue Antibiotic therapy if patient is clinically unstable) 0.10 - 0.49 ng/mL - Low likelihood of sepsis/ antibiotics discouraged 0.50 - 1.00 ng/mL - Increased likelihood of sepsis/ antibiotics encouraged >1.00 ng/mL - High Risk of sepsis/ antibiotics strongly encouraged Suspected Lower Respiratory Tract Infections (LRTI): 0.10 - 0.24 ng/mL - Low likelihood of bacterial infection/ antibiotics discouraged 0.25 - 0.49 ng/mL - Increased likelihood of bacterial infection/antibiotics encouraged >0.50 ng/mL - High risk of bacterial infection/ antibiotics strongly encouraged Levels 0.50 - 2.00 ng/mL should be interpreted in the clinical context of the patient as a variety of non-infectious conditions such as west, trauma, surgery and severe cardiogenic shock can cause procalcitonin elevations. *Sindi et al., Lancet 2010;375: DOI:10.1016/M[address]181-3046 [id number] *Ebony P et al., [employer] 2011;171:4953-7671 Comprehensive Metabolic Panel Sodium 139 135-145 mEq/L Potassium 2.9 L 3.6-5.0 mEq/L Chloride 101 101-111 mEq/L Carbon Dioxide 22 21-32 mEq/L Anion Gap 16 H 4-12 Glucose 109 70-110 mg/dL *This reference range applies to fasting specimens only. BUN 21 H 7-20 mg/dL Creatinine 0.73 0.60-1.30 mg/dL GFR Calculation > 60 AGE(years) AVERAGE GFR 50-59 93 ml/min/1.73 square meters Note:This result is normalized to 1.73 square meter body surface area. Height and weight are not factored. Chronic Kidney Disease stages by NKDF Stage eGFR I >90 II 60-89 III 30-59 IV 15-29 V <15 or dialysis Note: Information regarding the eGFR equation used can be found at https://www.kidney.org/ugja-obppe-kfolyfww. AST/SGOT 41 15-41 IU/L Alk Phos 68 41-137 IU/L Bili,Total 0.8 0.2-1.0 mg/dL Calcium 10.00 8.8-10.5 mg/dL Albumin 4.6 3.5-5.0 g/dL Total Protein 7.6 6.2-8.0 g/dL Alb/Glob Ratio 1.5 1.5-2.5 ALT/SGPT 46 H 10-40 IU/L Magnesium 1.9 1.8-2.5 mg/dL Alcohol < 0.010 gm/dL WBC 42.9 th/cmm (4.4-10.5) H* 05/13/25 08:05 RBC 4.90 mil/cmm (4.50-6.00) 05/13/25 08:05 Hgb 16.7 gm/dL (13.5-16.5) H 05/13/25 08:05 Hct 47.6 % (40.0-49.0) 05/13/25 08:05 MCV 97.1 CU DEIDRA (80-97) H 05/13/25 08:05 MCH 34.0 PG (27.5-33.0) H 05/13/25 08:05 MCHC 35.0 gm/dL (33.0-36.0) 05/13/25 08:05 RDW 18.7 % (12.0-16.0) H 05/13/25 08:05 Plt Count 346 th/cmm (150-400) 05/13/25 08:05 Neut % (Auto) 69.5 % (40-70) 05/11/25 15:14 Lymph % (Auto) 18.6 % (15-45) 05/11/25 15:14 Mcdonough % (Auto) 10.3 % (2-10) H 05/11/25 15:14 Eos % (Auto) 0.8 % (0-6) 05/11/25 15:14 Baso % (Auto) 0.8 % (0-2) 05/11/25 15:14 Nucleat RBC Rel Count 0.2 /100 WBC (<1) 05/11/25 15:14 Absolute Neuts (auto) 9300 /cmm (7269-7180) H 05/11/25 15:14 Absolute Lymphs (auto) 2500 /cmm (6975-5908) 05/11/25 15:14 Absolute Monos (auto) 1400 /cmm (0-800) H 05/11/25 15:14 Absolute Eos (auto) 100 /cmm (0-500) 05/11/25 15:14 Absolute Basos (auto) 100 /cmm (0-200) 05/11/25 15:14 Neutrophils % (Manual) 94.0 % (40-70) H 05/13/25 04:55 Band Neutrophils % 2.0 % (2-6) 05/13/25 04:55 Lymphocytes % (Manual) 4.0 % (15-45) L 05/13/25 04:55 Abs Neuts (Manual) 76742 /cmm (1721-3698) H 05/13/25 04:55 Abs Lymphs (Manual) 1548 /cmm (7459-0200) 05/13/25 04:55 Abs Monocytes (Manual) 0 /cmm (0-800) 05/13/25 04:55 Absolute Eos (Manual) 0 /cmm (0-500) 05/13/25 04:55 Abs Basophils (Manual) 0 /cmm (0-200) 05/13/25 04:55 Nucleated RBCs # 1 /100 WBC 05/13/25 04:55 Anisocytosis 1+ 05/13/25 04:55 RBC Morph Comment Test not indicated 05/13/25 04:55 PT 11.6 Sec (9.6-13.3) 05/11/25 15:14 INR 0.98 (0.9-1.2) 05/11/25 15:14 Sodium 139 mEq/L (135-145) 05/13/25 04:54 Potassium 3.2 mEq/L (3.6-5.0) L 05/13/25 04:54 Chloride 105 mEq/L (101-111) 05/13/25 04:54 Carbon Dioxide 21 mEq/L (21-32) 05/13/25 04:54 Anion Gap 13 (4-12) H 05/13/25 04:54 BUN 16 mg/dL (7-20) 05/13/25 04:54 Creatinine 0.61 mg/dL (0.60-1.30) 05/13/25 04:54 GFR Calculation > 60 (60-) 05/13/25 04:54 Random Glucose 126 mg/dL (70-110) H 05/13/25 04:54 Hemoglobin A1c 5.0 % (4.4-6.4) 05/11/25 20:10 Estim Average Glucose 97 mg/dL 05/11/25 20:10 Lactic Acid 2.5 mmol/L (0.5-2.0) H* 05/13/25 13:58 Calcium 9.70 mg/dL (8.8-10.5) 05/13/25 04:54 Magnesium 1.7 mg/dL (1.8-2.5) L 05/13/25 04:54 Total Bilirubin 0.8 mg/dL (0.2-1.0) 05/11/25 15:14 AST 41 IU/L (15-41) 05/11/25 15:14 ALT 46 IU/L (10-40) H 05/11/25 15:14 Alkaline Phosphatase 68 IU/L (41-137) 05/11/25 15:14 Troponin I High Sens 6 ng/L (0-20) 05/11/25 15:14 Total Protein 7.6 g/dL (6.2-8.0) 05/11/25 15:14 Albumin 4.6 g/dL (3.5-5.0) 05/11/25 15:14 Albumin/Globulin Ratio 1.5 (1.5-2.5) 05/11/25 15:14 Triglycerides 160 mg/dL (<150) H 05/11/25 20:10 Cholesterol 238 mg/dL (<200) H 05/11/25 20:10 LDL Cholesterol Direct 171 mg/dL (-100) H 05/11/25 20:10 VLDL Cholesterol, Calc 32 mg/dL (<39) 05/11/25 20:10 HDL Cholesterol 34 mg/dL (40-) L 05/11/25 20:10 LDL/HDL Ratio 5.0 (<3.1) H 05/11/25 20:10 Cholesterol/HDL Ratio 7.0 (4.0-5.0) H 05/11/25 20:10 Procalcitonin 0.25 ng/mL (-0.50) 05/13/25 04:54 TSH 1.879 mcIU/mL (0.490-4.670) 05/11/25 20:10 Urine Color Yellow 05/13/25 09:16 Urine Appearance Cloudy 05/13/25 09:16 Urine pH 7.0 (5.0-8.0) 05/13/25 09:16 Ur Specific [place] 1.021 (1.000-1.035) 05/13/25 09:16 Urine Protein 20 mg/dl (Negative) 05/13/25 09:16 Urine Glucose (UA) 30 mg/dL (Negative) 05/13/25 09:16 Urine Ketones Negative (Negative) 05/13/25 09:16 Urine Blood >1.0 mg/dl (Negative) 05/13/25 09:16 Urine Nitrite Negative (Negative) 05/13/25 09:16 Urine Bilirubin 2 mg/dL (Negative) 05/13/25 09:16 Urine Urobilinogen >10.0 mg/dl (0.2-1.0) 05/13/25 09:16 Ur Leukocyte Esterase 75 Pati/uL (Negative) 05/13/25 09:16 U Hyaline Cast (Auto) 3-5 /LPF H 05/13/25 09:16 Urine RBC >100 /HPF H 05/13/25 09:16 Ur WBC Total Counted 21-50 /HPF H 05/13/25 09:16 Ur Squamous Epith Cells None /HPF 05/13/25 09:16 Ur Renal Epithelial Cell 0-5 /HPF 05/13/25 09:16 Urine Mucus (Auto) Present 05/13/25 09:16 Ur Culture Indicated? Yes 05/13/25 09:16 Urine Opiates Screen Negative (Negative) 05/13/25 09:16 Ur Oxycodone Screen Negative (Negative) 05/13/25 09:16 Ur Barbiturates Screen Negative (Negative) 05/13/25 09:16 Ur Phencyclidine Scrn Negative (Negative) 05/13/25 09:16 Ur Amphetamines Screen Negative (Negative) 05/13/25 09:16 U Benzodiazepines Scrn Negative (Negative) 05/13/25 09:16 Urine Cocaine Screen Negative (Negative) 05/13/25 09:16 U Cannabinoids Screen Positive (Negative) H 05/13/25 09:16 Drug Screen Comment 05/13/25 09:16 Alcohol, Quantitative < 0.010 gm/dL 05/11/25 15:14 Specimen Source Nasopharyngeal Swab 05/12/25 20:50 Adenovirus (PCR) Not Detected 05/12/25 20:50 B. pertussis DNA (PCR) Not Detected 05/12/25 20:50 B.parapertussis DNA PCR Not Detected 05/12/25 20:50 C. pneumoniae DNA (PCR) Not Detected 05/12/25 20:50 Coronavirus OC43 (PCR) Not Detected 05/12/25 20:50 Coronavirus HKU1 (PCR) Not Detected 05/12/25 20:50 Coronavirus 229E (PCR) Not Detected 05/12/25 20:50 Coronavirus NL63 (PCR) Not Detected 05/12/25 20:50 Human Metapneumovir PCR Not Detected 05/12/25 20:50 Influenza A (RT-PCR) Not Detected 05/12/25 20:50 Influenza B (RT-PCR) Not Detected 05/12/25 20:50 M. pneumoniae (PCR) Not Detected 05/12/25 20:50 Parainfluenza 1 (PCR) Not Detected 05/12/25 20:50 Parainfluenza 2 (PCR) Not Detected 05/12/25 20:50 Parainfluenza 3 (PCR) Not Detected 05/12/25 20:50 Parainfluenza 4 (PCR) Not Detected 05/12/25 20:50 RSV (PCR) Not Detected 05/12/25 20:50 Entero/Rhino (PCR) Not Detected 05/12/25 20:50 SARS-CoV-2 (PCR) Not Detected 05/12/25 20:50 Diagnostic Data: 05/13/25 07:42 Chest 1 View Portable Xray [XR Chest 1 View Portable] Urgent 05/13/25 09:50 CT Chest Abdomen Pelvis WO Routine Assessment and Plan (1) Diverticulitis: (2) Chronic pancreatitis: Qualifiers: Pancreatitis type: alcohol induced Qualified Code(s): K86.0 - Alcohol-induced chronic pancreatitis (3) Alcohol withdrawal: Qualifiers: Complication of substance-induced condition: with delirium Qualified Code(s): F10.931 - Alcohol use, unspecified with withdrawal delirium (4) Alcoholism: (5) Sinus tachycardia: Plan * This patient has's alcoholism and chronic pancreatitis. It is not unusual for patients with alcohol related chronic pancreatitis to have low or normal amylase and lipase levels. While these enzymes are typically elevated during acute pancreatitis, their levels can be normal or only mildly elevated in chronic pancreatitis. This is particularly the case in later stages due to pancreatic damage and reduced enzyme production. * The presence of chronic pancreatitis would not entail the need for antibiotic therapy. However, the patient has diverticulitis. The patient was started on Unasyn to cover this problem. * The patient has sinus tachycardia. This is associated with alcohol withdrawal. These patients may have associated hyperventilation, tachycardia, tremor, hypertension, and diaphoresis. * I expect this patient to go into full delirium tremors.. The patient needs to be closely follow-up for this problem. DT's have a mortality rate of 50%. * Sepsis could be initiated for this patient's case his blood cultures have been monitored and so for they are negative. The plan is to maintain Unasyn for now for his diverticulitis. His antibiotics may need to be advanced depending upon the cultures. Addendum: He was switched to Zosyn due to acute spike in fever. Plan to maintain Zosyn and de-escalate according to the cultures. I think Unasyn is satisfactory, I do not believe that Pseudmonas is a problem in this case. 0130 cc: Tay Camara MD; Marc Serna MD (ID) Dictated by: Marc Serna MD (ID) on 05/13/25 1522 Entered by: Marc VELEZ)MD on 05/13/25 1522 Report Signed by: Marc Serna MD (ID) on 07/08/25 1904 <<Signature on File>> <Electronically signed by Marc VELEZ) > Report Signed by: on PROGRESS NOTE - ANTIBIOTICS Observed: 7:05 PM Status: F Source: [facility] Patient: DIONNA CONCEPCION [address] : 1975 [place], [place] [address] Location: [phone] Unit #: [id number] Progress Note - Antibiotics Marc VELEZ) Service Dt/Tm: 05/18/25 1200 Antibiotic Note Results: Will transfer to the floor Temperature 98.0 F Lab Results WBC 7.7 th/cmm (4.4-10.5) 05/17/25 04:35 BUN 15 mg/dL (7-20) 05/18/25 04:44 Creatinine 0.72 mg/dL (0.60-1.30) 05/18/25 04:44 05/14/25 05:30 Sputum - Luki Gram Stain - Final 05/14/25 05:30 Sputum - Luki Sputum Culture - Final Escherichia coli Serratia marcescens 05/13/25 06:54 Blood,Venous - Final Test not indicated 05/13/25 06:54 Blood,Venous Blood Culture - Final No growth after 5 days. 05/13/25 06:44 Blood,Venous - Final Test not indicated 05/13/25 06:44 Blood,Venous Blood Culture - Final No growth after 5 days. Assessment/Plan (1) Diverticulitis: Status: Acute (2) Chronic pancreatitis: Status: Chronic Qualifiers: Pancreatitis type: alcohol induced Qualified Code(s): K86.0 - Alcohol-induced chronic pancreatitis (3) Alcohol withdrawal: Status: Suspected Qualifiers: Complication of substance-induced condition: with delirium Qualified Code(s): F10.931 - Alcohol use, unspecified with withdrawal delirium (4) Alcoholism: Status: Chronic (5) Sinus tachycardia: Status: Resolved Plan * The presence of chronic pancreatitis would not entail the need for antibiotic therapy. However, the patient has diverticulitis. The patient was started on Unasyn. Plan to treat for 14 days due to the severity of the illness. * The patient can be treated with Augmentin when stable or at the time of discharge * Gentamicin was utilized to eradicate the colonizing gram-negative's as noted. This is a 3-day course only. 0030 Entered by: Marc Serna (ID)MD on 05/18/25 1200 Report Signed by: Marc Serna MD (ID) on 07/08/25 1904 <<Signature on File>> <Electronically signed by Marc Serna (POONAM) > Report Signed by: on PROGRESS NOTE - ANTIBIOTICS Observed: 7:05 PM Status: F Source: [facility] Patient: DIONNA CONCEPCION [address]. : 1975 [place], [place] [address] Location: [phone] Unit #: [id number] Progress Note - Antibiotics Marc Serna (ID) Service Dt/Tm: 05/15/25 2343 Antibiotic Note Results: Stable with no fever. Temperature 97.3 F Vital Signs - 48 hr 05/15/25 23:24 43 L 16 106/79 98 05/15/25 21:21 97.3 F L 05/15/25 21:00 30 05/15/25 19:58 59 L 16 122/84 100 05/15/25 19:01 59 L 16 97 30 05/15/25 19:00 59 L 16 115/78 97 05/15/25 18:30 63 16 121/85 99 05/15/25 18:01 65 16 99 30 05/15/25 18:00 70 16 118/84 99 05/15/25 17:50 72 16 98 05/15/25 17:48 73 16 104/77 98 05/15/25 17:46 78 15 100 05/15/25 17:45 71 103/73 100 05/15/25 16:54 64 23 H 100 05/15/25 16:53 59 L 14 112/82 100 30 05/15/25 16:48 59 L 16 100 30 05/15/25 16:32 57 L 16 98 05/15/25 16:31 56 L 16 112/82 100 05/15/25 16:01 62 16 111/83 98 05/15/25 16:00 62 16 98 05/15/25 15:31 65 16 107/80 98 05/15/25 15:20 97.1 F L 05/15/25 15:02 64 16 98 05/15/25 15:02 64 16 109/81 98 05/15/25 15:01 65 16 109/81 99 05/15/25 15:00 63 16 99 05/15/25 14:47 57 L 16 98 05/15/25 14:46 64 16 111/80 98 30 05/15/25 14:41 60 16 108/81 99 05/15/25 14:30 64 16 108/81 99 05/15/25 14:15 65 16 111/84 98 05/15/25 14:01 65 16 98 05/15/25 14:00 63 16 109/84 98 05/15/25 13:45 63 16 108/81 98 05/15/25 13:30 64 16 102/79 98 05/15/25 13:16 66 16 98 05/15/25 13:15 66 16 112/82 98 30 05/15/25 13:01 61 16 96 05/15/25 13:00 63 16 101/75 96 05/15/25 12:46 63 16 97 05/15/25 12:45 63 16 104/75 97 30 05/15/25 12:31 65 16 97 05/15/25 12:30 65 16 100/75 97 30 05/15/25 12:15 65 16 101/75 98 05/15/25 12:01 68 16 98 30 05/15/25 12:00 67 16 105/76 98 05/15/25 11:45 68 16 102/76 99 05/15/25 11:30 69 16 109/74 100 05/15/25 11:25 97.1 F L 05/15/25 11:15 68 14 104/76 99 05/15/25 11:01 72 16 98 05/15/25 11:00 70 16 105/81 98 05/15/25 10:47 72 16 109/78 98 05/15/25 10:46 72 20 98 05/15/25 10:45 72 20 109/78 98 30 05/15/25 10:30 75 20 107/83 99 05/15/25 10:28 72 20 113/82 99 05/15/25 10:16 71 20 99 05/15/25 10:15 70 20 112/83 99 30 05/15/25 10:08 70 20 120/87 99 05/15/25 10:01 73 20 98 05/15/25 10:00 75 20 120/87 98 05/15/25 09:45 76 20 119/89 98 05/15/25 09:31 73 20 98 05/15/25 09:30 72 20 124/76 98 30 05/15/25 09:15 76 20 117/86 98 05/15/25 09:07 80 20 98 05/15/25 09:06 74 20 125/86 98 30 05/15/25 09:01 75 20 100 05/15/25 09:00 73 20 127/87 100 05/15/25 08:50 30 05/15/25 08:31 97.5 F L 71 20 99 30 05/15/25 08:30 68 20 119/78 99 05/15/25 08:16 70 20 99 05/15/25 08:15 70 20 123/82 99 05/15/25 08:01 70 20 98 05/15/25 08:00 72 20 120/79 99 05/15/25 07:53 71 20 122/79 99 05/15/25 07:46 72 20 99 05/15/25 07:45 72 20 122/79 99 05/15/25 07:31 69 20 99 05/15/25 07:30 71 20 120/80 99 05/15/25 07:16 62 20 99 05/15/25 07:15 63 20 118/74 99 05/15/25 07:00 71 20 120/79 99 05/15/25 06:45 68 20 118/77 99 05/15/25 06:30 71 20 115/75 99 05/15/25 06:15 75 20 116/79 99 05/15/25 06:00 70 20 115/76 100 05/15/25 05:45 74 20 118/81 99 05/15/25 05:30 72 20 123/81 99 05/15/25 05:15 72 20 119/82 99 05/15/25 05:00 68 19 117/73 99 05/15/25 04:45 73 20 122/78 99 05/15/25 04:30 61 20 123/77 100 05/15/25 04:15 68 20 121/77 100 05/15/25 04:06 68 20 123/82 100 05/15/25 04:00 97.6 F 73 20 123/82 99 30 05/15/25 04:00 30 05/15/25 03:45 72 20 118/79 99 05/15/25 03:30 73 20 121/81 99 05/15/25 03:15 74 20 118/80 99 05/15/25 03:00 73 20 115/76 100 05/15/25 02:45 67 20 106/76 99 05/15/25 02:30 74 20 115/78 99 05/15/25 02:15 73 20 119/78 99 05/15/25 02:00 73 20 122/80 99 05/15/25 01:45 71 20 125/78 99 05/15/25 01:30 71 20 125/84 100 05/15/25 01:15 64 20 116/78 99 05/15/25 01:00 76 20 127/85 99 05/15/25 00:45 73 20 124/83 99 05/15/25 00:30 77 20 125/84 99 05/15/25 00:15 79 20 120/83 99 05/15/25 00:01 76 20 99 05/15/25 00:00 30 05/15/25 00:00 97.6 F 80 19 120/90 98 30 05/14/25 23:45 68 20 118/79 100 05/14/25 23:30 69 20 119/80 99 05/14/25 23:15 68 20 119/79 99 05/14/25 23:00 72 20 117/78 99 05/14/25 22:50 71 20 116/79 99 05/14/25 22:45 72 20 116/79 99 05/14/25 22:30 72 20 116/77 100 05/14/25 22:18 64 20 110/70 100 05/14/25 21:45 72 20 104/76 99 05/14/25 21:30 74 20 103/72 99 05/14/25 21:15 71 20 102/70 100 05/14/25 21:00 65 20 102/73 100 05/14/25 20:45 66 20 102/75 100 05/14/25 20:30 68 20 104/73 100 05/14/25 20:15 67 20 99/73 100 05/14/25 20:00 40 05/14/25 20:00 66 20 98/67 100 05/14/25 19:51 67 98/69 99 05/14/25 19:45 69 20 98/69 100 05/14/25 19:30 64 20 90/64 99 05/14/25 19:15 71 20 97/71 99 05/14/25 19:00 97.6 F 72 20 94/71 99 40 05/14/25 18:45 75 20 93/70 99 05/14/25 18:30 76 20 90/67 99 40 05/14/25 18:15 78 20 89/64 L 99 05/14/25 18:00 75 20 84/64 L 99 05/14/25 17:45 81 20 84/64 L 99 05/14/25 17:30 85 20 88/67 L 99 05/14/25 17:15 81 20 93/68 99 05/14/25 17:01 74 20 104/76 99 05/14/25 17:00 76 20 99 05/14/25 16:54 71 20 116/79 99 05/14/25 16:45 73 20 117/73 100 05/14/25 16:30 74 20 118/73 99 05/14/25 16:30 97.0 F L 05/14/25 16:15 75 20 111/72 99 05/14/25 16:00 72 20 108/70 99 05/14/25 15:45 78 20 103/70 99 05/14/25 15:30 80 20 102/71 99 05/14/25 15:15 84 20 95/67 99 05/14/25 15:00 86 20 97/71 99 05/14/25 14:45 88 20 92/67 99 05/14/25 14:42 88 18 97/70 99 05/14/25 14:30 95 20 97/70 98 05/14/25 14:24 97 22 H 96/68 98 05/14/25 14:15 98 20 96/69 98 40 05/14/25 14:00 102 H 20 91/65 97 05/14/25 13:45 109 H 20 90/59 L 97 05/14/25 13:30 113 H 20 86/58 L 97 05/14/25 13:26 114 H 21 H 83/60 L 97 05/14/25 13:15 115 H 20 85/60 L 97 05/14/25 13:09 116 H 20 82/59 L 97 05/14/25 13:00 118 H 20 79/56 L 97 05/14/25 12:45 Unasyn started 12:47 118 H 20 76/53 L 96 05/14/25 12:31 119 H 20 77/52 L 96 05/14/25 12:29 118 H 20 79/57 L 96 05/14/25 12:23 121 H 20 84/63 L 98 05/14/25 12:19 124 H 21 H 84/63 L 99 05/14/25 11:39 101.7 F H 05/14/25 11:10 123 H 21 H 91/62 100 05/14/25 11:00 125 H 25 H 91/62 99 05/14/25 10:45 125 H 27 H 96/63 99 05/14/25 10:30 127 H 27 H 106/71 100 05/14/25 10:15 126 H 31 H 116/74 100 05/14/25 10:00 122 H 23 H 106/65 05/14/25 09:57 124 H 32 H 100/77 100 05/14/25 09:44 126 H 35 H 100/77 100 05/14/25 09:30 126 H 36 H 91/69 98 05/14/25 09:27 125 H 35 H 93/64 98 05/14/25 09:15 117 H 34 H 82/53 L 05/14/25 09:13 118 H 36 H 81/54 L 05/14/25 09:00 114 H 33 H 78/56 L 99 05/14/25 08:50 113 H 31 H 85/57 L 99 05/14/25 08:45 114 H 34 H 83/59 L 99 05/14/25 08:16 120 H 34 H 104/67 98 40 05/14/25 08:04 133 H 27 H 115/79 99 05/14/25 08:00 40 05/14/25 07:45 118 H 25 H 100/75 05/14/25 07:40 121 H 28 H 107/78 97 05/14/25 07:30 115 H 22 H 107/78 100 05/14/25 07:15 114 H 24 H 113/79 99 05/14/25 07:00 114 H 23 H 108/81 99 05/14/25 06:50 115 H 26 H 123/84 100 05/14/25 06:40 117 H 28 H 122/87 99 05/14/25 06:36 115 H 21 H 158/85 H 05/14/25 06:31 114 H 18 158/85 H 74 L 05/14/25 06:21 111 H 18 142/98 H 98 05/14/25 06:10 115 H 22 H 128/98 H 98 05/14/25 06:05 117 H 29 H 135/96 H 98 05/14/25 06:00 118 H 23 H 135/96 H 98 05/14/25 05:51 116 H 27 H 97 05/14/25 05:50 116 H 32 H 134/97 H 99 05/14/25 05:45 114 H 27 H 130/97 H 97 05/14/25 05:40 116 H 27 H 137/98 H 98 05/14/25 05:35 115 H 30 H 140/95 H 98 05/14/25 05:30 113 H 28 H 150/99 H 96 05/14/25 05:28 116 H 30 H 142/102 H 96 05/14/25 05:26 101 H 31 H 160/99 H 97 05/14/25 05:24 112 H 14 161/107 H 98 05/14/25 05:22 101 H 22 H 169/107 H 91 05/14/25 05:21 107 H 0 L 168/102 H 93 05/14/25 05:21 20 05/14/25 05:18 123 H 36 H 151/109 H 97 05/14/25 05:16 118 H 35 H 135/100 H 95 05/14/25 05:14 116 H 37 H 123/111 H 96 05/14/25 05:01 115 H 34 H 148/93 H 94 05/14/25 04:45 120 H 38 H 137/98 H 95 05/14/25 04:30 119 H 43 H 139/97 H 94 05/14/25 04:17 121 H 35 H 139/95 H 94 05/14/25 03:57 2 05/14/25 03:15 99.5 F 126 H 42 H 137/96 H 91 2.0 05/14/25 03:00 97.8 F 122 H 36 H 140/92 H 93 05/14/25 01:34 98.5 F 128 H 40 H 131/96 H 92 2.0 Lab Results WBC 25.3 th/cmm (4.4-10.5) H 05/15/25 01:55 BUN 21 mg/dL (7-20) H 05/15/25 01:55 Creatinine 0.88 mg/dL (0.60-1.30) 05/15/25 01:55 05/14/25 05:30 Sputum - Luki Gram Stain - Final 05/14/25 05:30 Sputum - Luki Sputum Culture - Preliminary Escherichia coli Serratia marcescens 05/13/25 09:16 Urine catheterized Urine Culture - Final No growth after 2 days. 05/13/25 06:54 Blood,Venous Blood Culture - Preliminary No growth after 2 days, cultures held 5 days. 05/13/25 06:44 Blood,Venous Blood Culture - Preliminary No growth after 2 days, cultures held 5 days. 05/14/25 04:06 Perirectal MRSA Screen - Preliminary No growth of MRSA after 1 day. Assessment/Plan (1) Diverticulitis: Status: Acute (2) Chronic pancreatitis: Status: Chronic Qualifiers: Pancreatitis type: alcohol induced Qualified Code(s): K86.0 - Alcohol-induced chronic pancreatitis (3) Alcohol withdrawal: Status: Suspected Qualifiers: Complication of substance-induced condition: with delirium Qualified Code(s): F10.931 - Alcohol use, unspecified with withdrawal delirium (4) Alcoholism: Status: Chronic (5) Sinus tachycardia: Status: Acute Plan * This patient has's alcoholism and chronic pancreatitis as noted in the consultation report * The presence of chronic pancreatitis would not entail the need for antibiotic therapy. However, the patient has diverticulitis. The patient was started on Unasyn to cover this problem. I am not certain about the ascending colon that is. The patient is undergoing workup with the ERCP which should yield more data in that regard. * The patient has sinus tachycardia. This is associated with alcohol withdrawal. These patients may have associated hyperventilation, tachycardia, tremor, hypertension, and diaphoresis. * I expect this patient to go into full delirium tremors.. The patient needs to be closely follow-up for this problem. DT's have a mortality rate of 50%. * Sepsis could be initiated for this patient's case his blood cultures have been monitored and so for they are negative. * Sputum culture has 2 Gram negatives. His chest x-rays appear negative. Suspect colonizers. * I think Unasyn is satisfactory, I do not believe that Pseudomonas is a problem in this case. 0030 Entered by: Marc Serna (ID)MD on 05/15/25 2417 Report Signed by: Marc Serna MD (ID) on 07/08/25 2732 <<Signature on File>> <Electronically signed by Marc Serna (POONAM) > Report Signed by: on PROGRESS NOTE - ANTIBIOTICS Observed: 7:05 PM Status: F Source: [facility] Records Patient: DIONNA CONCEPCION [address] : 1975 [place], [place] [address] Location: [facility] [phone] [id number] Progress Note - Antibiotics Marc Serna (ID) Service Dt/Tm: 05/16/25 1144 Antibiotic Note Results: Temperature 97.3 F Lab Results WBC 9.5 th/cmm (4.4-10.5) 05/16/25 03:53 BUN 26 mg/dL (7-20) H 05/16/25 04:00 Creatinine 0.73 mg/dL (0.60-1.30) 05/16/25 04:00 05/14/25 04:06 Perirectal MRSA Screen - Final No growth of MRSA after 2 days. 05/14/25 05:30 Sputum - Luki Gram Stain - Final 05/14/25 05:30 Sputum - Luki Sputum Culture - Preliminary Escherichia coli Serratia marcescens DEIDRA still pending 05/13/25 06:54 Blood,Venous Blood Culture - Preliminary No growth after 3 days, cultures held 5 days. 05/13/25 06:44 Blood,Venous Blood Culture - Preliminary No growth after 3 days, cultures held 5 days. 05/16/25 05:40 Stool/feces Stool Occult Blood (DEIDRA) - Final 05/13/25 09:16 Urine catheterized Urine Culture - Final No growth after 2 days. Assessment/Plan (1) Diverticulitis: Status: Acute (2) Chronic pancreatitis: Status: Chronic Qualifiers: Pancreatitis type: alcohol induced Qualified Code(s): K86.0 - Alcohol-induced chronic pancreatitis (3) Alcohol withdrawal: Status: Suspected Qualifiers: Complication of substance-induced condition: with delirium Qualified Code(s): F10.931 - Alcohol use, unspecified with withdrawal delirium (4) Alcoholism: Status: Chronic (5) Sinus tachycardia: Status: Acute Plan * This patient has's alcoholism and chronic pancreatitis as noted in the consultation report * The presence of chronic pancreatitis would not entail the need for antibiotic therapy. However, the patient has diverticulitis. The patient was started on Unasyn to cover this problem. I am not certain about the ascending colon that is. The patient is undergoing workup with the ERCP which should yield more data in that regard. * The patient has sinus tachycardia. This is associated with alcohol withdrawal. These patients may have associated hyperventilation, tachycardia, tremor, hypertension, and diaphoresis. * Sputum culture has 2 Gram negatives. His chest x-rays appear negative. Suspect colonizers. * I think Unasyn is satisfactory, I do not believe that Pseudomonas is a problem in this case. * I may eliminate the patient's colonizes by using nebulization. Today the DEIDRA's are not completed. 0030 Entered by: Marc Serna (ID)MD on 05/16/25 1144 Report Signed by: Marc Serna MD (ID) on 07/08/25 1904 <<Signature on File>> <Electronically signed by Marc Serna (POONAM) > Report Signed by: on PROGRESS NOTE SURGICAL Observed: 025 8:23 PM Status: F Source: [facility] Records Patient: DIONNA CONCEPCION[address]. : 1975 [place], [place] [address] Location: [facility] [phone] Unit #: [id number] Progress Note [place] [place] BHAVNA-C Service Dt/Tm: 05/17/25 0652 <Statement entered by Ember Khanna MD - 07/01/25 20:22> Patient seen and examined independently by me.??? Below discussed and I agree with the note except where indicated.??? See my additional comments below.??? Labs, cultures, and radiographs where available were reviewed.??? Changes were made in the orders as necessary.??? I discussed patient concerns with the patient's nurse and instructions were given.??? Please see our orders for the updated patient care plan. I was with the PA 100% time for the evaluation, examination and decision making of this patient. Assessment/Plan (1) Transaminitis: Status: Acute (2) Small bowel obstruction: Status: Acute (3) CVA (cerebral vascular accident): Status: Acute Qualifiers: CVA mechanism: unspecified Qualified Code(s): I63.9 - Cerebral infarction, unspecified (4) Wernickes encephalopathy: Status: Acute (5) GI bleed: Status: Acute Qualifiers: GI bleed type/associated pathology: unspecified gastrointestinal hemorrhage type Qualified Code(s): K92.2 - Gastrointestinal hemorrhage, unspecified (6) On mechanically assisted ventilation: Status: Resolved (7) Metabolic acidosis: Status: Resolved (8) Hypertriglyceridemia: Status: Acute (9) Hypertension: Status: Acute Qualifiers: Hypertension type: primary hypertension Qualified Code(s): I10 - Essential (primary) hypertension (10) Hyperbilirubinemia: Status: Acute (11) Lactic acidosis: Status: Acute (12) Alcoholism: Status: Chronic (13) Chronic pancreatitis: Status: Chronic Qualifiers: Pancreatitis type: alcohol induced Qualified Code(s): K86.0 - Alcohol-induced chronic pancreatitis Plan CC admitting General surgery consulting GI consulting Cares per primary Recommending Continue Tube feeds IV Abx DVT ppx Bowel regimen +BM/+Flatus Gen surgery to sign off at this time, Please reach out with any further questions or concerns. Pt. can follow up with Dr. Acosta as an outpatient for removal of Gallbladder when pt's medical stable Subjective Date of Service: 05/17/25 Patient Information: DIONNA CONCEPCION is a 49 yr old M who was admitted on 05/12/25 for RT MCA INFARCT/LT SIDED WEAKNESS. Patient expresses concerns: Yes (Confused, mad at being at hospital ) Patient states: denies Shortness of breath Pain control: Moderately controlled CAM Tool Confusion Assessment Method (CAM Tool) 1. Acute onset and fluctuating course Is there evidence of an acute change in mental status from the patient's baseline?: Yes Did the (abnormal) behavior fluctuate during the day, that is tend to come and go or increase and decrease in severity?: No 2. Inattention Did the patient have difficulty focusing attention, for example, being easily distractible or having difficulty keeping track of what was being said?: No 3. Disorganized Thinking Was the patient???s thinking disorganized or incoherent, such as rambling or irrelevant conversation, unclear or illogical flow of ideas, or unpredictable switching from subject to subject?: No 4. Altered Level Of Consciousness Would you rate the patient's level of consciousness as Vigilant (hyper alert), Lethargic (drowsy, easily aroused), Stupor (difficult to arouse), OR Coma (unarousable)?: No CAM Score Does the patient have a positive CAM score? (Yes to all questions under number 1 and 2, and Yes to question 3 or 4): No PRISME Did you utilize the PRISME method to identify, rule-out, and treat the possible causation of dementia?: No Objective Vital Signs Last 48 hours: Vital Signs - 48 hr 05/17/25 04:38 97.2 F L 05/17/25 04:00 3 05/16/25 23:57 97.7 F 05/16/25 20:20 97.8 F 05/16/25 18:31 62 21 H 102/69 95 05/16/25 18:00 67 25 H 95 05/16/25 17:33 97.3 F L 05/16/25 17:31 57 L 23 H 110/77 96 05/16/25 17:01 68 24 H 115/76 99 2 05/16/25 17:00 64 21 H 99 05/16/25 16:50 61 23 H 98 2 05/16/25 16:40 61 21 H 98 05/16/25 16:35 97 2 05/16/25 16:31 70 19 113/91 H 100 2 05/16/25 16:30 62 21 H 99 40 05/16/25 16:20 58 L 18 100 05/16/25 16:10 57 L 14 100 05/16/25 16:08 54 L 10 L 114/79 100 05/16/25 16:00 64 16 114/79 99 40 05/16/25 15:51 59 L 17 05/16/25 15:32 67 13 100 05/16/25 15:31 63 17 100 40 05/16/25 15:25 40 05/16/25 15:02 55 L 12 100 05/16/25 15:01 56 L 11 L 111/91 H 100 40 05/16/25 15:00 61 19 100 40 05/16/25 14:31 46 L 11 L 110/77 99 40 05/16/25 14:01 50 L 10 L 111/73 99 30 05/16/25 14:00 50 L 10 L 99 05/16/25 13:58 48 L 10 L 99 30 05/16/25 13:30 10 L 108/77 99 30 05/16/25 13:23 56 L 17 99 30 05/16/25 13:12 30 05/16/25 13:02 52 L 14 98 05/16/25 13:01 53 L 14 102/79 98 05/16/25 13:00 61 15 99 05/16/25 12:55 65 14 99 05/16/25 12:50 53 L 16 99 05/16/25 12:45 50 L 12 99 05/16/25 12:40 43 L 15 100 05/16/25 12:31 52 L 15 109/76 99 05/16/25 12:30 53 L 19 99 05/16/25 12:20 52 L 20 99 05/16/25 12:18 53 L 17 99 05/16/25 12:10 47 L 17 100 05/16/25 12:08 64 17 100 05/16/25 12:01 45 L 12 104/67 100 05/16/25 12:00 45 L 14 100 05/16/25 11:44 97.7 F 05/16/25 11:32 52 L 18 100 05/16/25 11:31 48 L 15 104/76 100 05/16/25 11:01 52 L 13 117/92 H 100 05/16/25 11:00 52 L 12 100 05/16/25 10:32 50 L 15 100 05/16/25 10:31 47 L 16 112/73 100 05/16/25 10:03 05/16/25 10:02 70 8 L 100 05/16/25 10:01 54 L 11 L 106/74 100 05/16/25 10:00 51 L 15 100 05/16/25 09:31 52 L 12 106/72 100 05/16/25 09:02 53 L 15 100 05/16/25 09:01 52 L 14 105/73 100 05/16/25 09:00 53 L 15 100 05/16/25 08:32 16 99 30 05/16/25 08:30 30 05/16/25 08:14 46 L 16 110/67 99 05/16/25 08:01 45 L 16 110/67 99 30 05/16/25 08:00 47 L 16 99 05/16/25 07:31 89 16 102/67 99 05/16/25 07:30 97.3 F L 05/16/25 07:02 43 L 16 100 05/16/25 07:01 43 L 16 92/63 100 30 05/16/25 07:00 44 L 16 100 05/16/25 06:32 93 16 100 05/16/25 06:31 91 16 91/63 100 05/16/25 06:01 48 L 16 95/62 99 05/16/25 06:00 51 L 16 99 05/16/25 05:31 51 L 16 106/73 99 05/16/25 05:01 47 L 16 102/73 98 05/16/25 05:00 46 L 16 98 05/16/25 04:30 45 L 16 107/75 100 05/16/25 04:30 96.8 F L 05/16/25 04:01 86 16 98 05/16/25 04:00 50 L 16 95/70 99 05/16/25 03:56 45 L 16 88/60 L 98 05/16/25 03:30 48 L 16 88/60 L 98 05/16/25 03:01 96 16 100 05/16/25 03:00 46 L 16 88/61 L 100 05/16/25 02:30 64 16 93/64 100 05/16/25 02:01 42 L 16 99 05/16/25 02:00 46 L 16 102/73 99 05/16/25 01:30 44 L 16 98/73 99 05/16/25 01:01 52 L 16 99 05/16/25 01:00 47 L 16 100/75 99 05/16/25 00:30 48 L 16 102/75 99 05/16/25 00:01 86 14 98 05/16/25 00:00 90 16 95/75 98 05/15/25 23:30 74 16 98/72 99 05/15/25 23:24 43 L 16 106/79 98 05/15/25 23:00 96 16 106/79 100 05/15/25 22:30 95 16 96/73 99 05/15/25 22:01 50 L 16 98 05/15/25 22:00 104 H 16 95/75 98 05/15/25 21:30 55 L 16 110/79 99 05/15/25 21:21 97.3 F L 05/15/25 21:01 53 L 16 100 05/15/25 21:00 59 L 16 113/81 100 05/15/25 21:00 30 05/15/25 20:30 55 L 16 119/83 100 05/15/25 20:01 59 L 17 100 05/15/25 20:00 55 L 16 115/87 100 05/15/25 19:58 59 L 16 122/84 100 05/15/25 19:30 59 L 16 122/84 99 30 05/15/25 19:01 59 L 16 97 30 05/15/25 19:00 59 L 16 115/78 97 05/15/25 18:30 63 16 121/85 99 05/15/25 18:01 65 16 99 30 05/15/25 18:00 70 16 118/84 99 05/15/25 17:50 72 16 98 05/15/25 17:48 73 16 104/77 98 05/15/25 17:46 78 15 100 05/15/25 17:45 71 103/73 100 05/15/25 16:54 64 23 H 100 05/15/25 16:53 59 L 14 112/82 100 30 05/15/25 16:48 59 L 16 100 30 05/15/25 16:32 57 L 16 98 05/15/25 16:31 56 L 16 112/82 100 05/15/25 16:01 62 16 111/83 98 05/15/25 16:00 62 16 98 05/15/25 15:31 65 16 107/80 98 05/15/25 15:20 97.1 F L 05/15/25 15:02 64 16 98 05/15/25 15:02 64 16 109/81 98 05/15/25 15:01 65 16 109/81 99 05/15/25 15:00 63 16 99 05/15/25 14:47 57 L 16 98 05/15/25 14:46 64 16 111/80 98 30 05/15/25 14:41 60 16 108/81 99 05/15/25 14:30 64 16 108/81 99 05/15/25 14:15 65 16 111/84 98 05/15/25 14:01 65 16 98 05/15/25 14:00 63 16 109/84 98 05/15/25 13:45 63 16 108/81 98 05/15/25 13:30 64 16 102/79 98 05/15/25 13:16 66 16 98 05/15/25 13:15 66 16 112/82 98 30 05/15/25 13:01 61 16 96 05/15/25 13:00 63 16 101/75 96 05/15/25 12:46 63 16 97 05/15/25 12:45 63 16 104/75 97 30 05/15/25 12:31 65 16 97 05/15/25 12:30 65 16 100/75 97 30 05/15/25 12:15 65 16 101/75 98 05/15/25 12:01 68 16 98 30 05/15/25 12:00 67 16 105/76 98 05/15/25 11:45 68 16 102/76 99 05/15/25 11:30 69 16 109/74 100 05/15/25 11:25 97.1 F L 05/15/25 11:15 68 14 104/76 99 05/15/25 11:01 72 16 98 05/15/25 11:00 70 16 105/81 98 05/15/25 10:47 72 16 109/78 98 05/15/25 10:46 72 20 98 05/15/25 10:45 72 20 109/78 98 30 05/15/25 10:30 75 20 107/83 99 05/15/25 10:28 72 20 113/82 99 05/15/25 10:16 71 20 99 05/15/25 10:15 70 20 112/83 99 30 05/15/25 10:08 70 20 120/87 99 05/15/25 10:01 73 20 98 05/15/25 10:00 75 20 120/87 98 05/15/25 09:45 76 20 119/89 98 05/15/25 09:31 73 20 98 05/15/25 09:30 72 20 124/76 98 30 05/15/25 09:15 76 20 117/86 98 05/15/25 09:07 80 20 98 05/15/25 09:06 74 20 125/86 98 30 05/15/25 09:01 75 20 100 05/15/25 09:00 73 20 127/87 100 05/15/25 08:50 30 05/15/25 08:31 97.5 F L 71 20 99 30 05/15/25 08:30 68 20 119/78 99 05/15/25 08:16 70 20 99 05/15/25 08:15 70 20 123/82 99 05/15/25 08:01 70 20 98 05/15/25 08:00 72 20 120/79 99 05/15/25 07:53 71 20 122/79 99 05/15/25 07:46 72 20 99 05/15/25 07:45 72 20 122/79 99 05/15/25 07:31 69 20 99 05/15/25 07:30 71 20 120/80 99 05/15/25 07:16 62 20 99 05/15/25 07:15 63 20 118/74 99 05/15/25 07:00 71 20 120/79 99 Vital Signs (Last Set): Vital Signs - Last Set Temperature 97.2 F L 05/17/25 04:38 Pulse Rate 62 05/16/25 18:31 Respiratory Rate 21 H 05/16/25 18:31 Blood Pressure 102/69 05/16/25 18:31 Oxygen Saturation% 95 05/16/25 18:31 Liters of Oxygen 3 05/17/25 04:00 FiO2 % Amount 40 05/16/25 16:30 Patient is: Afebrile Intake/Output totals: Intake AND Output Intake Total 1108 831 766 Output Total 160 375 400 Balance 948 456 366 Actual Weight (Kg) 67.3 kg Intake: IV Intake (ml) [id number] PO Intake (ml) 100 Tube Feeding Intake (ml) 388 Tube Feeding Flush Intake (ml) 100 Output: Indwelling Urinary Catheter 160 375 400 Output (ml) Other: Weight Measurement Method Built in [facility] General Appearance: Positive Alert; Negative Acute Distress HEENT: Positive Normal Inspection Skin: Positive Warm, Dry and Pallor Neck: Positive Normal Inspection Cardiovascular: Positive Regular Rate and Rhythm Lungs: Positive Decreased Breath Sounds (Likely chronic ); Negative Respiratory Distress or Adventitial Sounds Abdomen: Positive Soft, BM and Flatus; Negative Tender to palpation Extremities: Positive Activity as expected; Negative Swelling or Edema Neurologic: Positive Grossly Intact and Moves all extremities Psychological: Positive Confused Lab Results: 05/17/25 04:35 Images available, please contact [facility] Medical Records 05/17/25 04:35 Images available, please contact [facility] Medical Records Laboratory Results - last 24 hr WBC 7.7 RBC 2.77 L Hgb 9.3 L Hct 27.1 L MCV 97.7 H MCH 33.7 H MCHC 34.5 RDW 19.5 H Plt Count 88 L Sample Site VBG pH VBG pCO2 at Pat Temp VBG pO2 at Pat Temp VBG HCO3 VBG O2 Saturation VBG Base Excess Respiration Rate Patient Equipment Vent Mode FiO2 Tidal Volume PEEP Blood Gas Notified By Sodium 146 H Potassium 3.7 Chloride 117 H Carbon Dioxide 21 Anion Gap 8 BUN 23 H Creatinine 0.67 GFR Calculation > 60 POC Whole Bld Glucose 124 H 124 H Random Glucose 122 H Calcium 8.10 L Ionized Calcium 1.17 Phosphorus 2.7 Magnesium 2.1 Total Bilirubin 1.7 H AST 78 H ALT 105 H Alkaline Phosphatase 346 H Total Protein 5.0 L Albumin 2.8 L Albumin/Globulin Ratio 1.3 L WBC RBC Hgb Hct MCV MCH MCHC RDW Plt Count Sample Site VBG pH VBG pCO2 at Pat Temp VBG pO2 at Pat Temp VBG HCO3 VBG O2 Saturation VBG Base Excess Respiration Rate Patient Equipment Vent Mode FiO2 Tidal Volume PEEP Blood Gas Notified By Sodium Potassium 4.1 Chloride Carbon Dioxide Anion Gap BUN Creatinine GFR Calculation POC Whole Bld Glucose 128 H 117 H Random Glucose Calcium Ionized Calcium Phosphorus Magnesium Total Bilirubin AST ALT Alkaline Phosphatase Total Protein Albumin Albumin/Globulin Ratio WBC RBC Hgb Hct MCV MCH MCHC RDW Plt Count Sample Site Vein VBG pH 7.43 H VBG pCO2 at Pat Temp 27 L VBG pO2 at Pat Temp 35 L VBG HCO3 17.7 L VBG O2 Saturation 71 L VBG Base Excess -7 L Respiration Rate 16 Patient Equipment Vent Vent Mode AC FiO2 0.30 Tidal Volume 500 PEEP 5.0 Blood Gas Notified By Yes Sodium Potassium Chloride Carbon Dioxide Anion Gap BUN Creatinine GFR Calculation POC Whole Bld Glucose Random Glucose Calcium Ionized Calcium Phosphorus Magnesium Total Bilirubin AST ALT Alkaline Phosphatase Total Protein Albumin Albumin/Globulin Ratio Microbiology 05/14/25 04:06 Perirectal MRSA Screen - Final No growth of MRSA after 2 days. 05/14/25 05:30 Sputum - Luki Gram Stain - Final 05/14/25 05:30 Sputum - Luki Sputum Culture - Preliminary Escherichia coli Serratia marcescens 05/13/25 06:54 Blood,Venous Blood Culture - Preliminary No growth after 3 days, cultures held 5 days. 05/13/25 06:44 Blood,Venous Blood Culture - Preliminary No growth after 3 days, cultures held 5 days. 05/16/25 05:40 Stool/feces Stool Occult Blood (DEIDRA) - Final Entered by: Russell Gallego [place]SILVIA on 05/17/25 0652 Report Signed by: Russell Can ([facility] [place] Julián VEGA on 05/17/252050 <<Signature on File>> <Electronically signed by Russell Gallego ([facility] [place] SILVIA> Report Signed by: Ember Khanna MD on 07/01/252021 <<Signature on File>> <Electronically signed by Ember Khanna MD> HISTORY AND PHYSICAL Observed: 11:08 PM Status: F Source: [facility] Medical Records Patient: DIONNA CONCEPCION [address]. : 1975 [place], [place] [address] Location: [address] [place] [address] Unit #: [id number] History and Physical Stuart Madrid MD ADDENDUM: Surgical History (Updated 06/05/25 @ 00:02 by Raquel Sultana) S/P rotator cuff repair Addendum Entered by: Stuart Madrid on 06/26/25 at 2308 Addendum Signed by: Stuart Madrid MD on 06/26/252307 <<Signature on File>> <Electronically signed by Stuart Madird MD> Addendum Signed by: on Date of Entry Into Hospital: 05/11/25 Date of Service: 05/11/25 Time Seen: 18:29 Patient Information: Primary Care Provider: Tay Camara MD Chief Complaint: RT MCA INFARCT/LT SIDED WEAKNESS History Obtained From: Patient History of Present Illness: 57-year-old male with past history of CVA He presented to the emergency room of [facility] with chief complaints of excessive fatigue and generalized weakness since 2 months. He mentions being diagnosed with CVA 2 months ago and has left-sided weakness, paresthesias and facial drooping ever since then. He has history of multiple falls. Does not want to get evaluated. He mentions history of alcohol abuse. Lab data CBC WBC 13.4, Hb 15, platelet count 342 Potassium 2.9, BUN 21, creatinine 0.73 Troponin 6, Pro-Anibal 0.18 EKG suggestive of sinus rhythm CT head suggestive of hypodensity in the posterior right frontal lobe which may represent a subacute right MCA infarct. He is provisionally diagnosed with subacute right MCA infarct with hypokalemia and was admitted to the floor under my service for further management. Stroke team consulted and MRI imaging of brain requested. Plan to continue aspirin 81 Mg OD, replace electrolytes and wait on MRI results. Patient Registration Status: Inpatient Allergies/Adverse Reactions No Known Drug Allergies Allergy (Verified 05/11/25 15:01) Home Medications amlodipine 10 mg tablet 10 mg PO DAILY 05/11/25 [Confirmed 05/11/25] aspirin 81 mg chewable tablet 1 tab PO DAILY 05/11/25 [Confirmed 05/11/25] Past Medical History Medical History CVA (cerebral vascular accident) left sided defecits Social History Caffeine Amount: 1-2/Day Current Type of Alcohol: Beer Current Alcohol Amount: Socially/Occasionally Smoking Status: Heavy tobacco smoker Type of Tobacco: Cigarettes Smoking Amount: 1 pack per day Family History Other No pertinent family history Review of Systems Other: REVIEW OF SYSTEMS: Constitutional: Negative for fever, chills or night sweats ENT: Negative for rhinorrhea, epistaxis, hoarseness, sore throat. Respiratory: Negative for shortness of breath, wheezing Cardiovascular: Negative for chest pain, palpitations Gastrointestinal: Negative for nausea, vomiting, diarrhea Genitourinary: Negative for polyuria, dysuria Hematologic/Lymphatic: Negative for bleeding tendency, easy bruising Musculoskeletal: Negative for myalgias and arthralgias Neurologic: Negative for confusion, dysarthria. Skin: Negative for itching, rash Psychiatric: Negative for depression, anxiety, agitation. Endocrine: Negative for polydipsia, polyuria, heat /cold intolerance. Physical Exam Last Vital Signs Temp Pulse Resp BP Pulse Ox 97.8 F 79 17 131/95 H 96 05/11/25 14:54 05/11/25 18:24 05/11/25 18:24 05/11/25 18:24 05/11/25 18:24 Height (Ft AND In) 5 ft 7 in Admitting (IV Pump) Weight 62.1 kg Actual Weight (Kg) 62.1 kg Physical Exam: General appearance: Appears comfortable. Well nourished Eyes: Sclera clear, pupils equal ENT: Moist mucus membranes, no thrush. Trachea midline. Cardiovascular: Regular rhythm, normal S1, S2. No murmur, gallop, rub. No edema in lower extremities Respiratory: Clear to auscultation bilaterally, no wheeze, good inspiratory effort Gastrointestinal: Abdomen soft, non-tender, not distended, normal bowel sounds Musculoskeletal: No cyanosis in digits, neck supple Neurology: Cranial nerves grossly intact. Alert and oriented in time, place and person. No speech or motor deficits Psychiatry: Appropriate affect. Not agitated Skin: Warm, dry, normal turgor, no rash Laboratory Last Values WBC 13.4 th/cmm (4.4-10.5) H 05/11/25 15:14 RBC 4.36 mil/cmm (4.50-6.00) L 05/11/25 15:14 Hgb 15.0 gm/dL (13.5-16.5) 05/11/25 15:14 Hct 41.8 % (40.0-49.0) 05/11/25 15:14 MCV 95.8 CU DEIDRA (80-97) 05/11/25 15:14 MCH 34.4 PG (27.5-33.0) H 05/11/25 15:14 MCHC 35.9 gm/dL (33.0-36.0) 05/11/25 15:14 RDW 18.8 % (12.0-16.0) H 05/11/25 15:14 Plt Count 342 th/cmm (150-400) 05/11/25 15:14 Neut % (Auto) 69.5 % (40-70) 05/11/25 15:14 Lymph % (Auto) 18.6 % (15-45) 05/11/25 15:14 Mcdonough % (Auto) 10.3 % (2-10) H 05/11/25 15:14 Eos % (Auto) 0.8 % (0-6) 05/11/25 15:14 Baso % (Auto) 0.8 % (0-2) 05/11/25 15:14 Nucleat RBC Rel Count 0.2 /100 WBC (<1) 05/11/25 15:14 Absolute Neuts (auto) 9300 /cmm (4044-0959) H 05/11/25 15:14 Absolute Lymphs (auto) 2500 /cmm (5341-3063) 05/11/25 15:14 Absolute Monos (auto) 1400 /cmm (0-800) H 05/11/25 15:14 Absolute Eos (auto) 100 /cmm (0-500) 05/11/25 15:14 Absolute Basos (auto) 100 /cmm (0-200) 05/11/25 15:14 Anisocytosis 1+ 05/11/25 15:14 PT 11.6 Sec (9.6-13.3) 05/11/25 15:14 INR 0.98 (0.9-1.2) 05/11/25 15:14 Sodium 139 mEq/L (135-145) 05/11/25 15:14 Potassium 2.9 mEq/L (3.6-5.0) L 05/11/25 15:14 Chloride 101 mEq/L (101-111) 05/11/25 15:14 Carbon Dioxide 22 mEq/L (21-32) 05/11/25 15:14 Anion Gap 16 (4-12) H 05/11/25 15:14 BUN 21 mg/dL (7-20) H 05/11/25 15:14 Creatinine 0.73 mg/dL (0.60-1.30) 05/11/25 15:14 GFR Calculation > 60 (60-) 05/11/25 15:14 Random Glucose 109 mg/dL (70-110) 05/11/25 15:14 Calcium 10.00 mg/dL (8.8-10.5) 05/11/25 15:14 Magnesium 1.9 mg/dL (1.8-2.5) 05/11/25 15:14 Total Bilirubin 0.8 mg/dL (0.2-1.0) 05/11/25 15:14 AST 41 IU/L (15-41) 05/11/25 15:14 ALT 46 IU/L (10-40) H 05/11/25 15:14 Alkaline Phosphatase 68 IU/L (41-137) 05/11/25 15:14 Troponin I High Sens 6 ng/L (0-20) 05/11/25 15:14 Total Protein 7.6 g/dL (6.2-8.0) 05/11/25 15:14 Albumin 4.6 g/dL (3.5-5.0) 05/11/25 15:14 Albumin/Globulin Ratio 1.5 (1.5-2.5) 05/11/25 15:14 Procalcitonin 0.18 ng/mL (-0.50) 05/11/25 15:14 Alcohol, Quantitative < 0.010 gm/dL 05/11/25 15:14 Diagnostic Data: 05/11/25 15:11 CXR [XR Chest 1 View Portable] Stat 05/11/25 15:14 CT Head Cervical Spine WO Stat Assessment/Plan (1) Left-sided weakness: Status: Acute Plan: He is provisionally diagnosed with subacute right MCA infarct with hypokalemia and was admitted to the floor under my service for further management. Stroke team consulted and MRI imaging of brain requested. Plan to continue aspirin 81 Mg OD, replace electrolytes and wait on MRI results. (2) Fatigue: Status: Acute Qualifiers: Fatigue type: unspecified Qualified Code(s): R53.83 - Other fatigue Plan: K- 2.9, Potassium replaced. Discussed Patient's Care With: Nurse l Code Status: Full Code Length of Stay: More than 2 midnights cc: Tay Camara MD; Stuart Madrid MD Dictated by: Stuart Madrid MD on 05/11/251828 Entered by: Stuart Madrid on 05/11/251828 Report Signed by: Stuart Madrid MD on 05/11/252025 <<Signature on File>> <Electronically signed by Stuart Madrid MD> Report Signed by: on ER PHYSICIAN DOCUMENTATION Observed: 01/2025 4:50 PM Status: F Source: [facility] Patient: JAMEYDIONNA Delgado [address] : 1975 [place], [place] [address] Location: [phone] [id number] Physician Documentation Service Date:05/11/25 ER Provider: Raul Holt MD HPI - Dizziness - Time Seen by Provider: 05/11/25 15:05 Arrival Mode: Private Vehicle Historian: Patient History of Present Illness Stated Complaint: AMS Symptoms Began: Today Symptoms Still Occurring: Still Present History of Present Illness: Patient is a 49-year-old male with HTN and history of CVA 2 months ago with resultant left-sided weaknesses, paresthesias and mild facial droop presenting to the ED via EMS with concerns regarding excessive fatigue and generalized weakness since. He lives at home with his brother where he ambulates without assistive devices. Patient endorses multiple falls over the last few months not seeking further evaluation. He denies headache, neck pain, pain in his chest, back, abdomen or any of his extremities. Patient states he prefers not to go to the doctor, stating he does not really care what happens anymore. Patient discloses history of alcohol abuse, noting that he drank approximately 7 beers for the first time in a while last night, 2 more this morning. Patient denies suicidal ideations. No further verbalized concerns or complaints. Review of Systems Review of Systems Constitutional: Fatigue (Excessive); denies Fever or Chills EENT: denies Sore throat or Runny nose Respiratory: denies Cough, Trouble breathing or Hemoptysis Cardiac: denies Chest pain, Palpitations, Diaphoresis or Syncope Abdomen/GI: denies Nausea, Vomiting or Pain Genitourinary: denies Urgency, Dysuria or Frequency Skin: denies Itching or Rash Musculoskeletal: denies Muscle pain, Neck pain or Back pain Neurological: Weakness (Generalized); denies Dizzy, Headache or Numbness Psychiatric: No symptoms All other systems: Reviewed and negative except HPI Past Family Social History Medical AND Surgical History: Medical History History of right MCA stroke Fatigue Form Layer domenic pancreatitis Alcoholism Metabolic encephalopathy Acute respiratory failure Smoker Hypertriglyceridemia Hypertens ion CVA (cerebral vascular accident) left sided defecits Surgical History S/P rotator cuff repair Social History: Caffeine Amount: 1-2/Day Current Type of Alcohol: Beer Current Alcohol Amount: Socially/Occasionally Smoking Status: Heavy tobacco smoker Type of Tobacco: Cigarette s Smoking Amount: 1 pack per day Family History: Other No pertinent family history Exam Physical Exam: Patient presentation: No apparent distress General Appearance : Positive Resting comfortable General Age: Appears stated ag e General Skin: Warm and Dry General Habitus: Normal Ge neral Mental Status: Alert General hydration: Moist mucous me mbranes ENT Exam: ENT Exam: Normocephalic, Neck supple and Swallowing well Eye Exam: Eye exam: PERRL, EOMI and Conjunctivi normal Cardiovascular Exam: Cardiovascular Exam: Regular rate and rhythm, No edema and Beverley l peripheral pulses Heart sounds: Normal Pulmonary Exam: Pulmonary exam: Lungs clear, No wheezing, No respiratory distres s, No cough and Decreased breath sounds Oxygen Mode: Room Air (Saturating 100%) Respirations: Normal Gastrointestinal Exam: Gastrointestinal Exam: Normal bowel sounds, non tender, Soft and Non distended Musculoskeletal Exam: Musculoskeletal Exam: Full ROM, Neurovascular intact and Other ( chronic left-sided motor weaknesses) Skin Exam: Skin Exam - normals: Intact, Normal color and Warm,dry Psychiatric Exam: Psychiatric exam: Normal mood affect, Normal process, Normal Con tent, Normal speech and Normal cognition Psychiatric exam - a bnormals: Depressed Neurovascular Exam: Neurological Exam: Alert, Oriented x 3, Normal gait, No motor de ficits and No sensory deficits [place] Coma Scale: Best eye response: Spontaneously Best verbal response: [place] ed Best motor response: Obeys commands [place] Coma Score: 15 Course Orders/Results Orders: Orders Admit Patient Now ADT 05/11/25 18:12 Active Case Management Consult Routine CONSOTHER 05/12/25 07:45 Ordered Dietary Consult Routine CONSOTHER 05/11/25 18:27 Completed Rehab Consult Routine CONSOTHER 05/11/25 18:27 Active Rehab Consult Routine CONSOTHER 05/12/25 13:[address] Angio Head Neck WWO Routine CT Scan 05/11/25 19:[address] Head Cervical Spine WO Stat CT Scan 05/11/25 15:14 Completed Complete Echo Routine CTC 05/12/25 Completed Electrocardiogram 12 Lead Stat CTC 05/11/25 15:03 Completed EKG if chest pain .PRN Card/Vasc 05/11/25 15:03 Completed Initiate Order NOW Care 05/11/25 18:27 Completed Initiate Order PRN Care 05/11/25 18:27 Completed NIH Stroke Scale NOWANDPRN Care 05/11/25 18:27 Completed Notify Physician. DIRECTED Care 05/11/25 18:27 Completed Obtain EKG (Information only) NOW Care 05/11/25 15:03 Completed Stroke Dysphagia Screen Now Care 05/11/25 18:27 Completed Stroke Dysphagia Screen PRN Care 05/11/25 18:27 Completed Stroke Education -3Day Teachback Q1HX1,QDX3 Care 05/11/25 18:27 Completed Teds/Compression Hose/SCD's NOW Care 05/11/25 18:27 Completed Telemetry Apply/Monitoring Q1HX1,Q48HX1,1300 Care 05/11/25 18:27 Completed Telemetry Apply/Monitoring Q1HX1,Q48HX1,1300 Care 05/12/25 07:45 Completed Code Status Routine Code 05/11/25 18:30 Completed Physician Consult Physical Medicine Routine Cons 05/11/25 18:27 Active NPO Diet 05/11/25 18:27 Completed Discharge Instructions As Directed Discharge 05/11/25 18:27 Ordered Discharge Instructions As Directed Discharge 05/11/25 18:27 Ordered ED Admit Delay Q1HPRN ED Tx 05/11/25 18:12 Completed ED Cardiac Monitoring .CONTINUOUSLY ED Tx 05/11/25 15:03 Completed ED Insert INT NOW ED Tx 05/11/25 15:03 Completed ED NIBP Monitoring . DIRECTED ED Tx 05/11/25 15:03 Completed ED Oxygen . DIRECTED ED Tx 05/11/25 15:03 Completed CXR [XR Chest 1 View Portable] Stat Exams 05/11/25 15:11 Completed Basic Metabolic,Non-Fasting IN AM Lab 05/13/25 04:54 Completed Basic Metabolic,Non-Fasting IN AM Lab 05/14/25 02:40 Completed Basic Metabolic,Non-Fasting IN AM Lab 05/15/25 01:55 Completed CBC with Differential IN AM Lab 05/13/25 04:55 Completed CBC with Differential IN AM Lab 05/14/25 02:40 Completed CBC with Differential Stat Lab 05/11/25 15:14 Completed CMP [Comprehensive Metabolic Panel] Urgent Lab 05/11/25 15:14 Completed ETOH [Alcohol] Urgent Lab 05/11/25 15:14 Completed Hemoglobin A1C Routine Lab 05/11/25 20:10 Completed Lipid Panel Routine Lab 05/11/25 20:10 Completed Magnesium IN AM Lab 05/13/25 04:54 Completed Magnesium IN AM Lab 05/14/25 02:40 Completed Magnesium IN AM Lab 05/15/25 01:55 Completed Magnesium Stat Lab 05/11/25 15:14 Completed Procalcitonin Urgent Lab 05/11/25 15:14 Completed Prothrombin Time Stat Lab 05/11/25 15:14 Completed TSH reflex Free T4 Routine Lab 05/11/25 20:10 Completed hs Troponin I Profile Urgent Lab 05/11/25 15:14 Completed MRI Brain Without Contrast Routine MRI 05/12/25 Completed Acetaminophen [Tylenol] Med 05/12/25 07:45 Discontinued 650 mg PO Q6HPRN PRN Amlodipine Besylate [Norvasc] Med 05/12/25 09:00 Discontinued 10 mg PO DAILY Aspirin [Baby Aspirin] Med 05/12/25 09:00 Discontinued 81 mg PO DAILY Atorvastatin Calcium [Lipitor] Med 05/11/25 21:00 Discontinued 40 mg PO QHS Calcium Replacement Protocol [Calcium Replacement Med 05/12/25 07:45 Discontinued Protocol.] 1 christiane MORSE DIRECTED PRN Docusate Sodium [Colace] Med 05/12/25 07:45 Discontinued 100 mg PO BIDPRN PRN Enoxaparin Sodium [Lovenox] Med 05/12/25 09:00 Discontinued 40 mg SC DAILY Magnesium Replacement Protocol [Magnesium ReplacemeMed 05/12/25 07:45 Discontinued nt Protocol.] 1 christiane MORSE DIRECTED PRN Melatonin [Melatonin.] Med 05/12/25 07:45 Discontinued 3 mg PO QHSMRX1 PRN Ns 1,000 ml Med 05/11/25 15:41 Discontinued IV BOLUS Omnipaque 350 [Omnipaquie 350 IV Contrast Dose] Med 05/11/25 20:35 Discontinued 1 dose IV NOW STA Ondansetron [Zofran] Med 05/12/25 07:45 Discontinued 4 mg IV PUSH Q6HPRN PRN Phosphorus Replacement Protoco [Phosphorus ReplacemMed 05/12/25 07:45 Discontinued ent Protocol.] 1 christiane MORSE DIRECTED PRN Polyethylene Glycol Packet [Miralax Packet] Med 05/12/25 07:45 Discontinued 17 gm PO DAILYPRN PRN Potassium Chloride Ivpb [KCl 20 MEQ IVPB] Med 05/11/25 16:08 Discontinued 20 meq in 100 ml IVPB ONE Potassium Chloride [K Dur] Med 05/12/25 11:00 Discontinued 20 meq PO Q2H Potassium Chloride [K Dur] Med 05/11/25 16:08 Discontinued 40 meq PO NOW ONE Potassium Replacement Protocol [Potassium ReplacemeMed 05/12/25 07:45 Discontinued nt Protocol.] 1 christiane MORSE DIRECTED PRN Potassium Replacement Protocol [Potassium ReplacemeMed 05/12/25 10:41 Discontinued nt Protocol.] 1 christiane MORSE DIRECTED PRN diphenhydrAMINE HCL [Benadryl] Med 05/12/25 07:45 Discontinued 25 mg PO QHSPRN PRN Stroke Quality Measures As Directed Qual Niya 05/11/25 18:27 Active Pulse Oximeter Monitoring Stat RESP 05/11/25 15:03 Completed OT to assess for Stroke Rehab Routine Ther 05/11/25 18:27 Ordered PT to assess for Stroke Rehab Routine Ther 05/11/25 18:27 Active Laboratory Results: Laboratory 05/11/25 15:14: WBC 13.4 H, RBC 4.36 L, Hgb 15.0, Hct 41.8, MCV 95.8, MCH 34.4 H, MCHC 35.9, RDW 18.8 H, Plt Count 342, Neut % (Auto) 69.5, Lymph % (Auto) 18.6, Mcdonough % (Auto) 10.3 H, Eos % (Auto) 0.8, Baso % (Auto) 0.8, Nucleat RBC Rel Count 0.2, Absolute Neuts (auto) 9300 H, Absolute Lymphs (auto) 2500, Absolute Monos (auto) 1400 H, Absolute Eos (auto) 100, Absolute Basos (auto) 100, Anisocytosis 1+, PT 11.6, INR 0.98, Sodium 139, Potassium 2.9 L, Chloride 101, Carbon Dioxide 22, Anion Gap 16 H, BUN 21 H, Creatinine 0.73, GFR Calculation > 60, Random Glucose 109, Calcium 10.00, Magnesium 1.9, Total Bilirubin 0.8, AST 41, ALT 46 H, Alkaline Phosphatase 68, Troponin I High Sens 6, Total Protein 7.6, Albumin 4.6, Albumin/Globulin Ratio 1.5, Procalcitonin 0.18, Alcohol, Quantitative < 0.010 EKG Interpretation EKG #1: EKG review date: 05/11/25 EKG review time: 15:18 Computerized reading: Agree with computerized reading Interpretation: Abnormal EKG Comparison: No comparison available Heart rate: 99 Rate: Normal Rhythm: Sinus Vital Signs Vital Signs: Vital Signs 05/12/25 22:30 97.9 F 85 158/97 H 100 05/12/25 22:10 77 16 146/93 H 99 05/12/25 21:45 77 99 05/12/25 21:31 67 98 05/12/25 21:30 79 146/93 H 100 05/12/25 21:15 78 100 05/12/25 21:01 81 99 05/12/25 21:00 81 139/94 H 100 05/12/25 20:51 143/99 H 99 05/12/25 20:45 79 99 05/12/25 20:31 76 99 05/12/25 20:30 78 99 05/12/25 20:15 77 99 05/12/25 20:01 75 18 99 05/12/25 20:00 76 16 148/95 H 99 05/12/25 19:31 80 13 05/12/25 19:30 78 15 134/93 H 05/12/25 19:15 89 20 05/12/25 19:00 124/96 H 05/12/25 18:00 121/91 H 05/12/25 17:30 126/92 H 05/12/25 17:00 135/98 H 05/12/25 16:30 132/95 H 05/12/25 16:00 120/90 05/12/25 15:30 123/91 H 05/12/25 15:03 121/90 05/12/25 15:00 126/90 05/12/25 14:30 115/91 H 05/12/25 14:00 120/97 H 05/12/25 13:30 115/90 05/12/25 13:00 132/97 H 05/12/25 12:30 120/94 H 05/12/25 12:00 124/92 H 05/12/25 11:59 126/87 100 05/12/25 11:56 126/87 05/12/25 10:17 86 16 131/97 H 98 05/12/25 09:15 86 100 05/12/25 09:02 77 98 05/12/25 09:01 78 131/96 H 99 05/12/25 09:00 67 05/12/25 08:53 74 135/94 H 99 05/12/25 08:45 74 99 05/12/25 08:31 75 99 05/12/25 08:30 74 127/101 H 99 05/12/25 08:15 73 98 05/12/25 08:01 74 98 05/12/25 08:00 74 131/96 H 98 05/12/25 07:45 73 97 05/12/25 07:31 97 05/12/25 07:30 75 129/93 H 98 05/12/25 07:15 98 05/12/25 07:01 75 97 05/12/25 07:00 74 133/92 H 98 05/12/25 06:45 77 99 05/12/25 06:31 77 100 05/12/25 06:30 76 136/95 H 100 05/12/25 06:15 81 100 05/12/25 06:01 80 98 05/12/25 06:00 86 145/113 H 98 05/12/25 05:45 68 100 05/12/25 05:31 68 99 05/12/25 05:30 67 138/94 H 99 05/12/25 05:15 70 100 05/12/25 05:01 68 100 05/12/25 05:00 74 137/96 H 99 05/12/25 04:45 66 100 05/12/25 04:31 69 99 05/12/25 04:30 71 141/102 H 99 05/12/25 04:25 72 142/99 H 100 05/12/25 04:15 66 99 05/12/25 04:01 69 99 05/12/25 04:00 73 131/104 H 99 05/12/25 03:45 68 99 05/12/25 03:31 75 99 05/12/25 03:30 73 99 05/12/25 03:15 70 97 05/12/25 03:01 71 98 05/12/25 03:00 130/97 H 99 05/12/25 02:45 70 98 05/12/25 02:31 74 139/95 H 98 05/12/25 02:30 77 98 05/12/25 02:15 76 100 05/12/25 02:02 76 129/94 H 98 05/12/25 02:00 78 05/11/25 23:00 133/95 H 05/11/25 22:31 100 05/11/25 22:30 100 05/11/25 22:26 130/89 98 05/11/25 22:15 86 18 100 05/11/25 22:00 87 15 99 05/11/25 21:45 86 20 100 05/11/25 21:30 86 20 99 05/11/25 21:15 82 19 96 05/11/25 21:00 78 15 99 05/11/25 20:45 76 13 99 05/11/25 20:38 83 20 99 05/11/25 20:01 84 18 97 05/11/25 20:00 88 19 132/95 H 99 05/11/25 19:45 82 17 99 05/11/25 19:39 83 124/90 05/11/25 19:30 89 18 05/11/25 19:15 80 18 05/11/25 19:10 85 16 05/11/25 18:24 79 17 131/95 H 96 05/11/25 16:23 95 19 127/96 H 97 05/11/25 14:54 97.8 F 101 H 16 133/95 H 100 Medical Decision Making MDM: CC/HPI: Patient is a 49-year-old male with HTN and history of CVA 2 months ago with resultant left-sided weaknesses, paresthesias and mild facial droop presenting to the ED via EMS with concerns regarding excessive fatigue and generalized weakness since. He lives at home with his brother where he ambulates without assistive devices. Patient endorses multiple falls over the last few months not seeking further evaluation. He denies headache, neck pain, pain in his chest, back, abdomen or any of his extremities. Patient states he prefers not to go to the doctor, stating he does not really care what happens anymore. Patient discloses history of alcohol abuse, noting that he drank approximately 7 beers for the first time in a while last night, 2 more this morning. Patient denies suicidal ideations. No further verbalized concerns or complaints. Laboratory studies/ imaging ordered today include CBC, CMP, PT, magnesium, troponin, EKG, CXR, procalcitonin, UA, EtOH, CT head/cervical spine without contrast The patient received potassium, normal saline while in our ED Physical Exam: Patient is resting comfortably no acute distress with moist mucous membranes; he has chronic left-sided motor weaknesses; seems a little depressed, denies suicidal ideation; but otherwise unremarkable physical examination Differential diagnoses include, but are not limited to electrolyte abnormality, UTI, pneumonia, subdural Course: Today's labs indicate WBC 13.4, potassium 2.9 anion gap 16 otherwise within normal limits CXR: No acute thoracic pathology CT: Hypodensity in the posterior right frontal lobe which may represent a subacute right MCA infarct. No hemorrhage was identified. Further evaluation with MRI may be beneficial. No acute abnormality in the cervical spine Upon receiving today's CT results, I attempted to locate patient's recent head imaging for comparison. After further discussion, it appears patient never had formal stroke workup. Patient only assumed he had a stroke provided with left-sided deficits for about the last 2 months. He is agreeable to the plan for admission. 1730 - Spoke with Dr. Madrid who agrees to admit the patient for further management. Patient will be admitted in good condition with a diagnosis of right MCA infarct, left-sided weakness Critical Care Statement Critical Care total time, exclusive of procedures: 30-74 minutes (Dr. Holt performed 40 minutes of critical care time, excluding separately billed procedures.) Shared Attending Note Shared Attending Note (ALIVIA 1,2,3): Suzette Cooley, medical receptionist, documented on behalf of Dr. Raul Holt MD. 16:48 DIONNA CONCEPCION is a 49 M presenting to the ED for AMS. Dr. Raul Holt MD personally saw and evaluated the patient. Dr. Raul Holt MD discussed the management with the KRUNAL/Resident Karmen Dalton and takes responsibility for the medical care of the patient. Exam findings as follows: Constitutional: Awake and alert. Left arm and leg weakness and numbness. Left lower facial droop and weakness of left eye. HENT: Head normocephalic and atraumatic Eyes: Conjuctiva unremarkable Cardiovascular: Heart rate regular Pulmonary: easy work of breathing, speaking full sentences Abdominal: flat and non-distended Skin: Warm and dry Musculoskeletal: Moving all extremities spontaneously. Supervision/Review Statement Supervision/Review of Mid-Level Statement: I personally made/approved the management plan for this patient and take responsibility for the medical care of this patient. [Dr. Raul Holt] Scribe Attestation Scribe Attestation: By electronically signing this emergency patient record, the Emergency Physician attests that all entries made into the electronic medical record by the scribe prior to the Physician electronic signature reflect an accurate accounting of the evaluation and care rendered by that Emergency Physician. The Emergency Physician assumes full responsibility for those entries. The Emergency Physician also attests that any patient testing and treatment that was instituted by nursing staff in accordance with Emergency Department Preemptive Guidelines have been reviewed and unless so stated elsewhere in this patient chart, the physician agrees with the testing and care provided. I, Suzette Angulo, medical receptionist, documented the EKG results and Shared Attending Note on behalf of Dr. Raul Holt MD. I was not present for the patient's examination. Discharge Plan Discharge Patient Disposition: Admit from ER Condition: Fair Chief Complaint: Dizziness Clinical Impression*: History of right MCA stroke, Left-sided weakness, Fatigue ED Provider: Raul Holt ED Midlevel Provider: Karmen Dalton Admit Provider: Stuart Madrid cc: Tay Camara MD Dictated by: Karmen Dalton PA-C on 05/11/25 1514 Transcribed by: Karmen Dalton PA-C on 05/11/25 1514 Report Signed by: Karmen Dalton PA-C on 06/08/25 1649 <<Signature on File>> < 0927 <<Signature on File>> <Electronically signed by Raul Holt MD> Report Signed by: on Report Signed by: on STATUS NOTE/UPDATE Observed: 06/03/2025 5:13 PM Status: F Source: [facility] Records Patient: DIONNA CONCEPCION [address] : 1975 [place], [place] [address] Location: [phone] Unit #: [id number] Status Note/Update Russell Galleg[place]IL[place] Service Dt/Tm: 05/15/2524 Note: DIONNA CONCEPCION is a 49 yr old M who was admitted on 05/12/25 for RT MCA INFARCT/LT SIDED WEAKNESS. General surgery recommending MRCP/ERCP first for patient Continue with NG tube Gastrografin challenge tomorrow after ERCP is taken place Dr. Acosta discussed plan with critical care team Will continue to follow Entered by: Russell Gallego [place]SILVIA on 05/15/2524 Report Signed by: Russell Can ([facility] Julián VEGA on 05/15/2526 <<Signature on File>> <Electronically signed by Russell Fonseca[facility] [place]ILVIA> Report Signed by: Emeka Acosta MD on 06/03/25 1713 <<Signature on File>> <Electronically signed by Emeka Acosta MD> PROGRESS NOTE - HOSPITALIST Observed: 4:26 PM Status: F Source: [facility] Records Patient: DIONNA CONCEPCION [address] : 1975 [place], [place] [address] Location: [phone] Unit #: [id number] Progress Note - Hospitalist Rose Sanchez MD Service Dt/Tm: 06/03/25 1003 Assessment/Plan Assessment/Plan (1) Wernickes encephalopathy: Status: Acute Plan: Stable Hx alcohol abuse and previous stroke with residual left-sided weakness (right MCA stroke in 01/28) presented with generalized weakness and confusion. With metabolic encephalopathy likely secondary to electrolyte disturbance and sepsis CT head-no acute infarct. MRI is suspicious for Warnicke's encephalopathy. Neurology consult appreciated. Continue IV thiamine, multivitamin and folic acid. Continue aspirin, high-dose of Lipitor (monitoring LFT). Psychiatry consult EEG-no epileptiform waves. Repeated MRI on 05/13 report reviewed, chronic changes. Area of encephalomalacia consistent with remote infarction. There is subtle periaqueductal ward enhancement. There has been improvement since prior exam, however pattern can be seen in the setting of thiamine deficiency/Wernicke''s Korsakoff in the correct clinical setting. Plan: Currently on ASA, statin, beta-jolie, thiamine, folic acid On antipsychotic medication [clonazepam and Seroquel] Pending SNF placement. (2) CVA (cerebral vascular accident): Status: Chronic Qualifiers: CVA mechanism: unspecified Qualified Code(s): I63.9 - Cerebral infarction, unspecified Plan: Old infarct in MCA territory (3) Alcoholism: Status: Chronic Plan: Stable Continue thiamine and folic acid (4) Septic shock: Status: Resolved Plan: Resolved (5) Hypertension: Status: Acute Qualifiers: Hypertension type: primary hypertension Qualified Code(s): I10 - Essential (primary) hypertension Plan: Well-controlled Continue low-dose antihypertensive medication. (6) Epistaxis: Status: Acute Plan: Continue moisturizing with normal saline gel TID Advised patient for avoid nose picking. (7) GI bleed: Status: Ruled-out Qualifiers: GI bleed type/associated pathology: unspecified gastrointestinal hemorrhage type Qualified Code(s): K92.2 - Gastrointestinal hemorrhage, unspecified Plan: Initial concern for GI bleed GI was consulted???status post ERCP--No sign of active bleeding Hemoglobin is stable [10.1 g/dL] On pantoprazole 40 mg daily. Plan 05/11/2025: Admission:??? a 49-year-old male with a history of alcohol abuse and previous CVA, was admitted to [facility] with complaints of excessive fatigue and generalized weakness. Initial CT head suggested a subacute right MCA infarct. Labs showed hypokalemia and elevated troponin. He was started on aspirin and electrolyte replacement. Neurology was consulted, and an MRI was ordered. 05/12/2025: Neurology Evaluation:???MRI confirmed old cortical gyral ischemic infarcts. Neurology recommended continuing aspirin and statin therapy. Echocardiography showed normal LV function with no PFO. * Infectious Disease Consultation:???Patient developed leukocytosis, and sepsis protocol was initiated. Blood cultures were obtained, and Rocephin was started switched to Zosyn 05/13/2025: WBC count increased significantly, and the patient developed fever and tachycardia. ID switched to Unasyn. CT abdomen/pelvis suggested diverticulitis and chronic pancreatitis. * Critical Care Consultation:???Due to worsening clinical status, including tachypnea and altered mental status, the patient was transferred to the ICU. For possible alcohol withdrawal , DTs, Warnicke encephalopathy 05/14/2025:???The patient was intubated for airway protection due to altered mental status and suspected aspiration. MRCP showed choledocholithiasis, and ERCP was planned. * General surgery was consulted for small bowel obstruction, and an NG tube was placed. 05/15/2025: ERCP Procedure:???Successful sphincterotomy and stone extraction were performed. The patient remained in the ICU for continued monitoring and management of sepsis and respiratory failure. 05/16/2025: he patient was extubated and showed signs of clinical improvement. He remained on antibiotics and supportive care. 05/17/2025:The patient was stable, with resolved sepsis and improved hemodynamics. He was transferred out of the ICU. 05/20/2025: Continued management of Wernicke's encephalopathy with thiamine and multivitamins. The patient showed gradual improvement in mental status. 05/22/2025: Psychiatry Consultation:???Evaluated for encephalopathy and alcohol withdrawal delirium. Recommendations included continuing thiamine and outpatient psychiatric follow-up. * Palliative Care Consultation:???Discussed goals of care with family. The patient was oriented to self and partially to the situation. Family expressed interest in rehabilitation or long-term care placement. Continue to be full code 05/23/2025: Repeated MRI:???A follow-up MRI of the brain was performed, showing diffuse involutional changes and chronic microvascular deep white matter disease. There was an area of encephalomalacia and gliosis along the right inferior frontal gyrus, consistent with remote infarct. Subtle FLAIR and T2 hyperintensity were noted along the ventricular surface of the 3rd ventricle, periaqueductal ward, and mamillary bodies, suggestive of thiamine deficiency/Wernicke's Korsakoff syndrome. Improvement was noted since the prior exam. Aspirin and Plavix held due to nausea 05/24/2025: Patient was lethargic, aggressive and refused examination in the morning however mentation improved after physical therapist worked with the patient. 05/25 Awake and alert. Engaging in conversation. AO x 2. Episode of pneumonia labs. He thought he is in different hospital ;however he remembered when i told him. He is aware of month and year 05/26 awake and alert. Remember our discussion yesterday. Can resume aspirin today as per neurology recommendation. Diastolic blood pressure elevated we can resume amlodipine 2.5 mg daily and monitor vitals 05/27. Awake and alert. Aspirin restarted, no more discussed. Outpatient follow- up recommended by neurology. Blood pressure better controlled 05/28 doing well. Dry skin noted on the nostrils. Saline gel ordered 3 times daily. Continue aspirin 05/29 doing well. Waiting for SNF placement. 05/30 overall doing well, still waiting for SNF placement. 05/31 doing well, tolerating oral diet and doing physical therapy. 06/01 waiting for SNF placement. 06/02. Confused today. Urinary retention noted. Pending SNF placement Current Code Status AND Diet: 05/11/25 18:30 Code Status Routine Resuscitation Status: Full Code Code Status Order Placed: Code Status Ordered 05/11/25 at 1830 05/17/25 10:31 [facility] Diet Texture: Regular Fluid Restrictions?: No Subjective Subjective: Primary Care Provider: Tay Camara MD Chief Complaint: RT MCA INFARCT/LT SIDED WEAKNESS Patient Status AND Estimated DC Date Patient Registration Status: Inpatient Objective Constitutional: Last Vital Signs Temp Pulse Resp BP Pulse Ox O2 Flow RateFiO2 98.3 F 86 16 137/92 H 100 0 0 06/03/25 07:06/03/25 07:06/03/25 07:06/03/25 07:06/03/25 07:05/31/25 16:05/31/25 08: 27 27 27 27 27 56 15 Intake and Output Intake Total 337 820 Output Total 1800 Balance 337 -980 Admitting (IV Pump) Weight 61.4 kg Actual Weight (Kg) 71.2 kg Data Labs: Potassium 4.1 The last 24 hours of labs have been reviewed. Imaging: I have reviewed the diagnostic images in the EMR. Medications and Comanagement: Medications reviewed separately. Pressure Injury/Pressure Area of Concern Sacrum: Site identified as: Area of Concern Provider Reviewed: Management of wounds per consulted wound provider Ischium (Buttocks) Left Open: Provider Reviewed: Management of wounds per consulted wound provider Ischium (Buttocks): Site identified as: Area of Concern Provider Reviewed: Management of wounds per consulted wound provider Entered by: Rose Sanchez MD on 06/03/25 1003 Report Signed by: Rose Sanchez MD on 06/03/25 1626 <<Signature on File>> <Electronically signed by Rose Sanchez MD> Report Signed by: on DISCHARGE SUMMARY Observed: 06/03/2025 4:26 PM Status: F Source: [facility] Records Patient: DIONNA CONCEPCION [address] : 1975 [place], [place] [address] Location: [phone] Unit #: [id number] Discharge Summary Rose Sanchez MD Patient Information Admit Date: 05/12/25 Attending Provider: Rose Sanchez MD Primary Care Provider: Tay Camara MD Discharge Date: 06/03/25 Reason For Visit: RT MCA INFARCT/LT SIDED WEAKNESS Hospital Course Discharge Diagnoses (1) Wernickes encephalopathy: Status: Acute Plan: Stable Hx alcohol abuse and previous stroke with residual left-sided weakness (right MCA stroke in 01/28) presented with generalized weakness and confusion. With metabolic encephalopathy likely secondary to electrolyte disturbance and sepsis CT head-no acute infarct. MRI is suspicious for Warnicke's encephalopathy. Neurology consult appreciated. Continue IV thiamine, multivitamin and folic acid. Continue aspirin, high-dose of Lipitor (monitoring LFT). Psychiatry consult EEG-no epileptiform waves. Repeated MRI on 05/13 report reviewed, chronic changes. Area of encephalomalacia consistent with remote infarction. There is subtle periaqueductal ward enhancement. There has been improvement since prior exam, however pattern can be seen in the setting of thiamine deficiency/Wernicke''s Korsakoff in the correct clinical setting. Plan: Currently on ASA, statin, beta-jolie, thiamine, folic acid On antipsychotic medication [clonazepam and Seroquel] Pending SNF placement. (2) CVA (cerebral vascular accident): Status: Chronic Qualifiers: CVA mechanism: unspecified Qualified Code(s): I63.9 - Cerebral infarction, unspecified Plan: Old infarct in MCA territory (3) Alcoholism: Status: Chronic Plan: Stable Continue thiamine and folic acid (4) Septic shock: Status: Resolved Plan: Resolved (5) Hypertension: Status: Acute Qualifiers: Hypertension type: primary hypertension Qualified Code(s): I10 - Essential (primary) hypertension Plan: Well-controlled Continue low-dose antihypertensive medication. (6) Epistaxis: Status: Acute Plan: Continue moisturizing with normal saline gel TID Advised patient for avoid nose picking. (7) GI bleed: Status: Ruled-out Qualifiers: GI bleed type/associated pathology: unspecified gastrointestinal hemorrhage type Qualified Code(s): K92.2 - Gastrointestinal hemorrhage, unspecified Plan: Initial concern for GI bleed GI was consulted???status post ERCP--No sign of active bleeding Hemoglobin is stable [10.1 g/dL] On pantoprazole 40 mg daily. Plan 05/11/2025: Admission:??? a 49-year-old male with a history of alcohol abuse and previous CVA, was admitted to [facility] with complaints of excessive fatigue and generalized weakness. Initial CT head suggested a subacute right MCA infarct. Labs showed hypokalemia and elevated troponin. He was started on aspirin and electrolyte replacement. Neurology was consulted, and an MRI was ordered. 05/12/2025: Neurology Evaluation:???MRI confirmed old cortical gyral ischemic infarcts. Neurology recommended continuing aspirin and statin therapy. Echocardiography showed normal LV function with no PFO. * Infectious Disease Consultation:???Patient developed leukocytosis, and sepsis protocol was initiated. Blood cultures were obtained, and Rocephin was started switched to Zosyn 05/13/2025: WBC count increased significantly, and the patient developed fever and tachycardia. ID switched to Unasyn. CT abdomen/pelvis suggested diverticulitis and chronic pancreatitis. * Critical Care Consultation:???Due to worsening clinical status, including tachypnea and altered mental status, the patient was transferred to the ICU. For possible alcohol withdrawal , DTs, Warnicke encephalopathy 05/14/2025:???The patient was intubated for airway protection due to altered mental status and suspected aspiration. MRCP showed choledocholithiasis, and ERCP was planned. * General surgery was consulted for small bowel obstruction, and an NG tube was placed. 05/15/2025: ERCP Procedure:???Successful sphincterotomy and stone extraction were performed. The patient remained in the ICU for continued monitoring and management of sepsis and respiratory failure. 05/16/2025: he patient was extubated and showed signs of clinical improvement. He remained on antibiotics and supportive care. 05/17/2025:The patient was stable, with resolved sepsis and improved hemodynamics. He was transferred out of the ICU. 05/20/2025: Continued management of Wernicke's encephalopathy with thiamine and multivitamins. The patient showed gradual improvement in mental status. 05/22/2025: Psychiatry Consultation:???Evaluated for encephalopathy and alcohol withdrawal delirium. Recommendations included continuing thiamine and outpatient psychiatric follow-up. * Palliative Care Consultation:???Discussed goals of care with family. The patient was oriented to self and partially to the situation. Family expressed interest in rehabilitation or long-term care placement. Continue to be full code 05/23/2025: Repeated MRI:???A follow-up MRI of the brain was performed, showing diffuse involutional changes and chronic microvascular deep white matter disease. There was an area of encephalomalacia and gliosis along the right inferior frontal gyrus, consistent with remote infarct. Subtle FLAIR and T2 hyperintensity were noted along the ventricular surface of the 3rd ventricle, periaqueductal ward, and mamillary bodies, suggestive of thiamine deficiency/Wernicke's Korsakoff syndrome. Improvement was noted since the prior exam. Aspirin and Plavix held due to nausea 05/24/2025: Patient was lethargic, aggressive and refused examination in the morning however mentation improved after physical therapist worked with the patient. 05/25 Awake and alert. Engaging in conversation. AO x 2. Episode of pneumonia labs. He thought he is in different hospital ;however he remembered when i told him. He is aware of month and year 05/26 awake and alert. Remember our discussion yesterday. Can resume aspirin today as per neurology recommendation. Diastolic blood pressure elevated we can resume amlodipine 2.5 mg daily and monitor vitals 05/27. Awake and alert. Aspirin restarted, no more discussed. Outpatient follow- up recommended by neurology. Blood pressure better controlled 05/28 doing well. Dry skin noted on the nostrils. Saline gel ordered 3 times daily. Continue aspirin 05/29 doing well. Waiting for SNF placement. 05/30 overall doing well, still waiting for SNF placement. 05/31 doing well, tolerating oral diet and doing physical therapy. 06/01 waiting for SNF placement. 06/02. Confused today. Urinary retention noted. Freeman catheter placed. Pending SNF placement 06/03 awake and alert today. Watching TV. Tolerating diet. Maintain Freeman catheter. Urology follow-up outpatient. Excepted to SNF today. Hospital Course The patient is a 49-year-old male with a history of alcohol abuse and prior right MCA stroke (with residual left-sided weakness) who was admitted with complaints of excessive fatigue, generalized weakness, and confusion. Initial workup revealed hypokalemia, elevated troponin, and imaging suggestive of subacute right MCA infarct, though subsequent MRI confirmed only chronic infarcts. During hospitalization, he developed sepsis with leukocytosis and was managed with broad-spectrum antibiotics, later found to have diverticulitis and chronic pancreatitis on imaging. His clinical course was complicated by acute metabolic encephalopathy, likely due to thiamine deficiency (Wernicke???s encephalopathy), and he required ICU transfer for respiratory failure and altered mental status, necessitating intubation. MRCP revealed choledocholithiasis, and ERCP with sphincterotomy and stone extraction was successfully performed. He was managed for possible alcohol withdrawal and delirium with thiamine, multivitamins, and antipsychotics per psychiatry recommendations. After extubation and stabilization, he was transferred out of the ICU, continued on supportive care, and gradually improved in mental status. Neurology recommended ongoing aspirin and statin therapy, and psychiatry advised outpatient follow-up. Palliative care discussed goals of care with the family, and remain full code.. Family opted for rehabilitation or long-term care. The patient???s hospital course was further complicated by episodes of epistaxis, urinary retention requiring Freeman catheterization, and dry nasal mucosa, all managed appropriately. He was ultimately stabilized on aspirin, statin, thiamine, folic acid, and antihypertensive therapy, and was discharged in stable condition to a halfway facility with outpatient urology and psychiatric follow-up arranged. Consultations 05/11/25 18:27 Physician Consult Physical Medicine Routine Comment: Consulting Provider: Damion Dale Reason for consult: Rehab unit evaluation-stroke Has the consulted physician been notified?: Yes 05/13/25 10:02 Infectious Disease Consult [Physician Consult Infectious Disease] Routine Comment: Consulting Provider: Kareem VELEZ)Marc Reason for consult: sepsis Has the consulted physician been notified?: Yes 05/14/25 02:55 Physician Consult Critical Care Routine Comment: Consulting Provider: Jack Miller Reason for consult: DTs Has the consulted physician been notified?: Yes 05/14/25 03:55 Surgery Physician Consult [Physician Consult Surgery] Routine Comment: Consulting Provider: Emeka Acosta Reason for consult: free air on ct, leukocytosis, abd distension/rebound tenderness. Has the consulted physician been notified?: Yes 05/14/25 17:21 Consult GI Physician [Physician Consult Gastroenterology] Routine Comment: Consulting Provider: Chris Velasquez Reason for consult: choledocholithiasis Has the consulted physician been notified?: Yes 05/20/25 15:24 Consult Palliative Care Routine Comment: Consulting Provider: Atiya Laurent Reason for consult: goals of care Has the consulted physician been notified?: Yes Notification Comment: in person 05/21/25 09:32 Physician Consult Psychiatry Routine Comment: Consulting Provider: TeleMedicine,Specialist Psych Reason for consult: Encephalopathy Has the consulted physician been notified?: Yes 05/30/25 14:20 Consult Wound/Ostomy Provider Routine Comment: Consulting Provider: Johnna Massey Reason for consult: sacral wound ulcer. Has the consulted physician been notified?: Yes Laboratory Results - last 24 hr Potassium 4.1 Imaging: I have reviewed the diagnostic images from Radiology in the EMR Objective Last Vital Signs Temp Pulse Resp BP Pulse Ox O2 Flow RateFiO2 98.3 F 86 16 137/92 H 100 0 0 06/03/25 07:06/03/25 07:06/03/25 07:06/03/25 07:06/03/25 07:05/31/25 16:05/31/25 08: 27 27 27 27 27 56 15 Intake AND Output Intake Total 100 0 480 Output Total 1500 300 Balance -1400 -300 480 Actual Weight (Kg) 71.2 kg Physical Exam Other: GEN: No acute distress, lying comfortably HEENT: No lymphadenopathy, neck is supple Chest: Bilateral air entry, no wheezing or rhonchi CVS: S1 and S2, no gallop or murmur Abdomen: Soft, normal bowel sound, no organomegaly Extremities: No edema bilateral lower extremities. Weakness noted on extremities Social determinants of health completed per CM, reviewed. Allergy and Medications Allergies/Adverse Reactions No Known Drug Allergies Allergy (Verified 05/11/25 15:01) Home Medications aspirin 81 mg chewable tablet 1 tab PO DAILY 05/11/25 [History Confirmed 05/11/25] atorvastatin 80 mg tablet 80 mg PO QHS 30 days #30 tabs 06/03/25 [Rx] folic acid 1 mg tablet 1 mg PO DAILY 30 days #30 tabs 06/03/25 [Rx] metoprolol tartrate 25 mg tablet 25 mg PO BID 30 days #60 tabs 06/03/25 [Rx] multivitamin-ferrous fumarate-folic acid 18 mg-400 mcg tablet (Sentry) 1 tab PO DAILY 30 days #30 tabs 06/03/25 [Rx] nicotine 21 mg/24 hr daily transdermal patch 1 patch transdermal DAILY #30 ea 06/03/25 [Rx] pantoprazole 40 mg tablet,delayed release 40 mg PO DAILY 30 days #30 tabs 06/03/25 [Rx] polyethylene glycol 3350 17 gram oral powder packet (HealthyLax) 17 g PO DAILY #30 ea 06/03/25 [Rx] tamsulosin 0.4 mg capsule 0.8 mg (2 x 0.4 mg) PO QHS #30 caps 06/03/25 [Rx] thiamine mononitrate (vit B1) 100 mg tablet 100 mg PO DAILY #30 tabs 06/03/25 [Rx] Discharge Plan Discharge Data Patient Disposition: *Discharge/Transfer SNF/[facility] Condition: Fair Discharge Medication Reconciliation: New atorvastatin 80 mg Tablet 80 mg PO QHS 30 Days Qty: 30 0RF polyethylene glycol 3350 [HealthyLax] 17 gram Powder In Packet 17 g PO DAILY Qty: 30 0RF tamsulosin 0.4 mg Capsule 0.8 mg PO QHS Qty: 30 0RF pantoprazole 40 mg Tablet,Delayed Release (Dr/Ec) 40 mg PO DAILY 30 Days Qty: 30 0RF nicotine 21 mg/24 hr Patch 24 Hour 1 patch transdermal DAILY Qty: 30 0RF metoprolol tartrate 25 mg Tablet 25 mg PO BID 30 Days Qty: 60 0RF folic acid 1 mg Tablet 1 mg PO DAILY 30 Days Qty: 30 0RF Sentry 18-400 mg-mcg Tablet 1 tab PO DAILY 30 Days Qty: 30 0RF thiamine mononitrate (vit B1) 100 mg Tablet 100 mg PO DAILY Qty: 30 0RF Continued aspirin 81 mg tablet,chewable 1 tab PO DAILY Discontinued amlodipine 10 mg tablet 10 mg PO DAILY omeprazole 20 mg Capsule,Delayed Release(Dr/Ec) 20 mg DAILY Time Spent On Discharge: Greater than 30 minutes General Instructions Activity: With assistance, NWB on right leg, NWB on left leg and Wheelchair Diet: No restrictions Driving instructions: No driving Bathing Instructions: OK to shower and With Assist Discharge Information Follow-up Appointments: Emeka Acosta MD [Staff Physician] - 10 - 14 days Tay Camara MD [Primary Care Provider] - Stand Alone Forms: Discharge Instructions cc: Rose Sanchez MD; Tay Camara MD Dictated by: Rose Sanchez MD on 06/03/25 1102 Entered by: Rose Sanchez MD on 06/03/25 1102 Report Signed by: Rose Sanchez MD on 06/03/25 1625 <<Signature on File>> <Electronically signed by Rose Sanchez MD> Report Signed by: on CONTINUITY CARE/FACE TO FACE Observed: 0 06/03/2025 4:13 PM Status: F Source: [facility] Medical Records Patient: DIONNA CONCEPCION [address] : 1975 [place], [place] [address] Location: [phone] [id number] Care/Face to Face Yeimy Metcalf RN Service Date: 06/03/25 Continuity Care/Face to Face Face to Face Encounter Date: 06/03/25 - General Information Admit to: [facility] Phone Number: [phone] Top Case Assembler/Wood Drilling Machine Operator: Yeimy Metcalf Primary Insurance: Pavan Huynh Secondary Insurance: PAUL pending Family/Caregiver Contact: Dionna Loving Relationship: father Living Will: Unknown [facility] DNR Comfort Care: No Directive, No SS Referral [facility] DNR Comfort Care Arrest: No Directive, No SS Referral Code Status Order: Full Code Consulting Physicians: Consultations 05/11/25 18:27 Physician Consult Physical Medicine Routine Comment: Consulting Provider: Damion Dale Reason for consult: Rehab unit evaluation-stroke Has the consulted physician been notified?: Yes 05/13/25 10:02 Infectious Disease Consult [Physician Consult Infectious Disease] Routine Comment: Consulting Provider: Kareem (POONAM)Marc Reason for consult: sepsis Has the consulted physician been notified?: Yes 05/14/25 02:55 Physician Consult Critical Care Routine Comment: Consulting Provider: Jack Miller Reason for consult: DTs Has the consulted physician been notified?: Yes 05/14/25 03:55 Surgery Physician Consult [Physician Consult Surgery] Routine Comment: Consulting Provider: Emeka Acosta Reason for consult: free air on ct, leukocytosis, abd distension/rebound tenderness. Has the consulted physician been notified?: Yes 05/14/25 17:21 Consult GI Physician [Physician Consult Gastroenterology] Routine Comment: Consulting Provider: Chris Velasquez Reason for consult: choledocholithiasis Has the consulted physician been notified?: Yes 05/20/25 15:24 Consult Palliative Care Routine Comment: Consulting Provider: Atiya Laurent Reason for consult: goals of care Has the consulted physician been notified?: Yes Notification Comment: in person 05/21/25 09:32 Physician Consult Psychiatry Routine Comment: Consulting Provider: TeleMedicine,Specialist Psych Reason for consult: Encephalopathy Has the consulted physician been notified?: Yes 05/30/25 14:20 Consult Wound/Ostomy Provider Routine Comment: Consulting Provider: Johnna Massey Reason for consult: sacral wound ulcer. Has the consulted physician been notified?: Yes Primary Diagnosis (Surgery Date): rt MCA infarct left sided weakness Secondary Diagnosis (Includes pertinent Patient History): CVA alcoholism HTN metabolic encephalopathy Comments: I assessed DIONNA CONCEPCION in a face to face encounter during his/her acute/post acute stay. Based on my contact with this patient, I have certified that he/she is homebound and that the absence from home requires considerable taxing effort. The following home care services are medically necessary for management of the above medical conditions. LACE Score: 11 Allergies/Adverse Reactions No Known Drug Allergies Allergy (Verified 05/11/25 15:01) - Orders Disciplines Requested: Retirement, Physical Therapy, Occupational Therapy Services Requested: Skilled Assessment, Wound/Ostomy Care, Strengthening/Exercise Level of Care: Skilled - Additional Orders Additonal Orders (See attached Discharge Instructions for Me: Facility skin care protocol. Pressure reduction mattress. Incontinence care Keep skin clean AND dry. Apply Zinc Oxide Paste to Intergluteal Cleft / Left Buttocks TID and as needed after incontinent episodes. Entered by: Yeimy Metcalf RN on 06/03/25 1113 Report Signed by: Yeimy Metcalf RN on 06/03/25 1113 <<Signature on File>> < 1613 <<Signature on File>> <Electronically signed by Rose Sanchez MD> CASE MANAGEMENT DAILY NOTE Observed: 4:07 PM Status: F Source: [facility] Case Management Patient: DIONNA CONCEPCION [address] : 1975 [place], [place] [address] Location: [phone] Unit #: [id number] Case Management Daily Note Yeimy Metcalf RN Service Date: 06/03/25 Case Mgmt Daily Note - Plan of Care Wood Drilling Machine Operator Agrees with Attending and Consult Plan: Yes - Patient Preferences AND Goals What is the patient's preference?: New SNF Recommended acute discharge goals: New SNF - Hospital Stay Days Day 1 Comment: 05/11 - Spoke with patient at bedside. Patient has Pavan Fierror. PCP is Pam Camara. director of player personnel is his father, Dionna. [facility]acy [facility]. Denies services, DME. He is independent of ADLS and drives. He lives with his brother and father in a 1 story home with no steps to enter. Denies LW/DPOA. Per primary nurse, Jenni, she states that EMS reported that family stated patient has been depressed and having trouble with his left side weakness from his stroke 2 months ago. Also states he has been falling at home. Wood Drilling Machine Operator: Ana Snyder, RN Day 2 Comment: 05/12 - Spoke with pt. MRI completed and pending results. Neuro following. PT/OT ordered and recommended IPR. Rehab consulted to review case and waiting on response. Wood Drilling Machine Operator: Shelbi Jackson Day 3 Comment: 05/13 Dispo pending medical course. IPR following, c/s placed 05/12. MRI B (-) for acute CVA. WBC 42.9. Lactic 3.7. BC/UA/Sputum Cx. IV Rocephin/IVF. PT/OT. Wood Drilling Machine Operator: Jimena Carcamo RN Day 4 Comment: 05/14: Patient transferred to ICU overnight. Intubated. PEEP 5. FiO2 40%. Propofol. Versed. Levo. Vaso. IVP Solu Cortef QID. Seizure precautions. WBC 36.5. 7/8 blood cultures pending. IV unasyn Q6. ID following. MRCP today. Surgery following. SW d/t alcohol abuse. Needs TBD pending medical medical course. Wood Drilling Machine Operator: Sonja Mcmahan Day 5 Comment: 05/15: Patient remains intubated. PEEP 5. FiO2 30%. Versed. Levo. IVP Solu Cortef QID. IV ampicillin Q6. WBC 25.3. 7/9 sputum positive. 05/13 blood cultures negative to date. GI following, ERCP today. Surgery following. ID following. SW following d/t alcohol abuse. Needs TBD pending medical course. Wood Drilling Machine Operator: Sonja Mcmahan Day 6 Comment: 05/16: Patient remains intubated. PEEP 5. FiO2 30%. IVP Solu Cortef QID. LR @ 50. ID following. WBC 9.5. IV ampicillin Q6. Hgb 8.8. Needs TBD pending medical course and therapy recs post extubation. Wood Drilling Machine Operator: Sonja Mcmahan Day 9 Comment: 05/19 Most recent CIWA 5. Daughter wanting SNF placement per previous CM. PTOT most recent recs IPR. Per nursing documentation, pt not alert and oriented. CM and CHECKER LOADER will speak with daugther further about DC planning. Pt will need a precert if SNF is planned. Currently on Unasyn per ID,Augmentin when stable or at the time of discharge. *Per [facility], they are following to see if pt is appropriate for IPR placement at DC. Message left for Daughter Maria Fernanda per primary nurse request. *No return call from daughter to CM. Per nursing staff daughter called the floor with concerns about DC planning. Email sent to daughter to discuss DC planning per daughters request. *email returned from daughter with SNF choices, [facility]- in [place], [place]. [facility]- [place], [place]. [facility]- in [place], [place]. *[employer] attempting to get information from daughter/pt brother for intermodal owner operator truck driver PAUL screening. Wood Drilling Machine Operator: Yeimy Metcalf, RN Comment: 05/20 Email this AM from daughter states she is interested in SNF facilities closer to a middle point for her/siser and pt dad/brother so they can all visit pt. Daughter is requesting a family meeting for this wednesday 05/23 at 11am to discuss placement options. Pt will require precert once a facility is obtained. Wood Drilling Machine Operator: Yeimy Metcalf, RN Comment: 05/21 Psych consult placed per attending. EEG ordered per neurology, possible LP per neurology notes. ID following, Unasyn active until 05/26. Telesitter present in room. Pt remains confused. [employer] attempting [facility]p PAUL krunal with family. SNF choices given by daughter to CM and CHECKER LOADER in [place] and [place]. CHECKER LOADER working on placement. Awaiting psych consult to review further placement barriers. Wood Drilling Machine Operator: Yeimy Metcalf, RN Comment: 05/22 SW is working with patients daughter for placement note reads dc planning with pt daughter through email. Pt daughter planning to be at [facility] tomorrow for family meeting. Pt daughter would like to continue looking for SNF at ia. Pt evaluated by telepsych and recs for outpt services. SW faxed clinical referral to [facility] in [place] for review. Wood Drilling Machine Operator: Beverly Mckeon, RN Comment: 05/23 Family meeting at the bedside with attending, Palliative Care PROGRAM TECHNICIAN, CM and CHECKER LOADER. Medical questions answered per attending. CM and CHECKER LOADER spoke about DC planning/placement options/barriers. CHECKER LOADER sending clinicals to [facility] and [place] area to check on placement avalibility. Per [place], PAUL screen complete and pending number provided to CHECKER LOADER. CM and CHECKER LOADER attempting tank terminal gauger placement. Family requesting to speak with community service manager/administration about concerns with pt care/complaints. CM spoke with [employer] x2 to relay information. Email sent to community service manager as she is off to follow up with concerns once back in office. Wood Drilling Machine Operator: Yeimy Metcalf, RN Comment: 05/26 Telesitter removed by primary RN over the weekend. Telesitter remains out of the room at this time. Per CHECKER LOADER, still sending referrals and waiting on accepting facility. Pt also PAUL pending for mcfp placement. Wood Drilling Machine Operator: Yeimy Metcalf, RN Comment: 05/27 Per CHECKER LOADER, facilities requested by daughter in [place] are continuing to review. Precert to start once accepted. Wood Drilling Machine Operator: Yeimy Metcalf, RN Comment: 05/28 Per CHECKER LOADER, facilities still reviewing pt. Per CHECKER LOADER, [facility] agreeable to take pt but daughter stating that facility is too far away. Precert to start once a facility accepts. Wood Drilling Machine Operator: Yeimy Metcalf, RN Comment: 05/29/25 Pre-cert pending to [facility] in [place]. Wood Drilling Machine Operator: Beverly Mckeon, RN Comment: 05/30 Precert remains PENDING for [facility]. Multiple facilites have been exhausted by CHECKER LOADER and all facilities picked by daughter have no availability, don't accept PAUL pending, or will not accept due to pt behaviors/history. Daughter previously agreeable to a middle point for pt between [place] and [place] so other family members could visit patient. Pt has been medically cleared for DC and DC planning needing to move forward with [facility] per CM Director Shireen. Daughter updated via email(daughters preferred contact method) that DC planning needing to move forward and we are moving forward with the facility that has accepted him and has a tank terminal gauger bed available. Daughter updated via email that she can move pt to a closer facility from [facility] if she desires. Wood Drilling Machine Operator: Yeimy Metcalf, RN Comment: 06/02 Per CHECKER LOADER, Precert remains PENDING for [facility]. *Per CHECKER LOADER, [facility] states insurance likely to deny due to refusal to work with therapy. Per CHECKER LOADER, facility hesitant to accept pt PAUL pending. *CM called : [facility], F:[phone], they can accept PAUL pending and do have bed availability, CHECKER LOADER updated to send recs for review. [facility], F:[phone], CHECKER LOADER updated to send recs for review. [facility], F:[phone], they do accept PAUL pending and are checking on mcfp bed availability, CHECKER LOADER updated to send recs for review. CM also called: [facility], [facility], [facility], [facility], [facility], [place], [facility] and left voicemails to check for availability. Awaiting return calls. *Per CHECKER LOADER, [facility] has clinically accepted and financial team is now reviewing pt. Wood Drilling Machine Operator: Yeimy Metcalf, RN Comment: 06/03 Per CHECKER LOADER, multiple facilities are reviewing at this time. Onsite planned for today. See CHECKER LOADER notes for updates on SNF placement. Wood Drilling Machine Operator: Yeimy Metcalf, RN - Respiratory Equipment Does the patient use/have any of these devices at home?: N/A - Community Services Substance Use Screening: Initiated - * L * Length of Stay LOS (Including day of Admission and Discharge): 23 LOS Score: 7 - * A * Acuity on Admission ER Provider if admitted from ER (view): [email or web address] Was patient admitted to hospital via Emergency Dept? Score: 3 - * C * Comorbidities Select All Conditions that Apply: Cerebral Disease (Any previous stroke or transient ischemic attack) Comorbidities Total Score: 1 - * E * Emergency Department Visits # of ER visits,6mos prior to admit,excl this admits ER visit: 0 Enter this number or 4 (whichever is smaller): 0 - LACE SCORE LACE Score: 11 - ANTICIPATED DISCHARGE Anticipated Discharge Date: 06/03/25 Entered by: Yeimy Metcalf RN on 06/03/25 1031 Report Signed by: Yeimy Metcalf RN on 06/03/25 1607 <<Signature on File>> <Electronically signed by Yeimy Metcalf RN> Co-Signed by: on CASE MANAGEMENT DAILY NOTE Observed: 4:07 PM Status: F Source: [facility] Case Management Patient: DIONNA CONCEPCION [address] : 1975 [place], [place] [address] Location: [phone] Unit #: [id number] [facility] #: [id number] Case Management Daily Note Yeimy Metcalf RN Service Date: 06/02/25 Case Mgmt Daily Note - Plan of Care Wood Drilling Machine Operator Agrees with Attending and Consult Plan: Yes - Patient Preferences AND Goals What is the patient's preference?: New SNF Recommended acute discharge goals: New SNF - Hospital Stay Days Day 1 Comment: 05/11 - Spoke with patient at bedside. Patient has Pavan Huynh. PCP is Pam Camara. director of player personnel is his father, Dionna. [facility]acy is [facility]. Denies services, DME. He is independent of ADLS and drives. He lives with his brother and father in a 1 story home with no steps to enter. Denies LW/DPOA. Per primary nurse, Jenni, she states that EMS reported that family stated patient has been depressed and having trouble with his left side weakness from his stroke 2 months ago. Also states he has been falling at home. Wood Drilling Machine Operator: Ana Snyder, RN Day 2 Comment: 05/12 - Spoke with pt. MRI completed and pending results. Neuro following. PT/OT ordered and recommended IPR. Rehab consulted to review case and waiting on response. Wood Drilling Machine Operator: Shelbi Jackson Day 3 Comment: 05/13 Dispo pending medical course. IPR following, c/s placed 05/12. MRI B (-) for acute CVA. WBC 42.9. Lactic 3.7. BC/UA/Sputum Cx. IV Rocephin/IVF. PT/OT. Wood Drilling Machine Operator: Jimena Carcamo, RN Day 4 Comment: 05/14: Patient transferred to ICU overnight. Intubated. PEEP 5. FiO2 40%. Propofol. Versed. Levo. Vaso. IVP Solu Cortef QID. Seizure precautions. WBC 36.5. 05/13 blood cultures pending. IV unasyn Q6. ID following. MRCP today. Surgery following. SW d/t alcohol abuse. Needs TBD pending medical medical course. Wood Drilling Machine Operator: Sonja Mcmahan Day 5 Comment: 05/15: Patient remains intubated. PEEP 5. FiO2 30%. Versed. Levo. IVP Solu Cortef QID. IV ampicillin Q6. WBC 25.3. 05/14 sputum positive. 05/13 blood cultures negative to date. GI following, ERCP today. Surgery following. ID following. SW following d/t alcohol abuse. Needs TBD pending medical course. Wood Drilling Machine Operator: Sonja Mcmahan Day 6 Comment: 05/16: Patient remains intubated. PEEP 5. FiO2 30%. IVP Solu Cortef QID. LR @ 50. ID following. WBC 9.5. IV ampicillin Q6. Hgb 8.8. Needs TBD pending medical course and therapy recs post extubation. Wood Drilling Machine Operator: Sonja Mcmahan Day 9 Comment: 05/19 Most recent CIWA 5. Daughter wanting SNF placement per previous CM. PTOT most recent recs IPR. Per nursing documentation, pt not alert and oriented. CM and CHECKER LOADER will speak with daugther further about DC planning. Pt will need a precert if SNF is planned. Currently on Unasyn per ID,Augmentin when stable or at the time of discharge. *Per [facility], they are following to see if pt is appropriate for IPR placement at DC. Message left for Daughter Maria Fernanda per primary nurse request. *No return call from daughter to CM. Per nursing staff daughter called the floor with concerns about DC planning. Email sent to daughter to discuss DC planning per daughters request. *email returned from daughter with SNF choices, [facility]- in [place], [place]. [facility]- [place]. [facility]- in [place], [place]. *[facility] attempting to get information from daughter/pt brother for jail PAUL screening. Wood Drilling Machine Operator: Yeimy Metcalf, RN Day Comment: 05/20 Email this AM from daughter states she is interested in SNF facilities closer to a middle point for her/siser and pt dad/brother so they can all visit pt. Daughter is requesting a family meeting for this wednesday 05/23 at 11am to discuss placement options. Pt will require precert once a facility is obtained. Wood Drilling Machine Operator: Yeimy Metcalf, RN Day 11 Comment: 05/21 Psych consult placed per attending. EEG ordered per neurology, possible LP per neurology notes. ID following, Unasyn active until 05/26. Telesitter present in room. Pt remains confused. [employer] attempting tank terminal gauger PAUL krunal with family. SNF choices given by daughter to CM and CHECKER LOADER in [place] and [place]. CHECKER LOADER working on placement. Awaiting psych consult to review further placement barriers. Wood Drilling Machine Operator: Yeimy Metcalf, RN 12 Comment: 05/22 SW is working with patients daughter for placement note reads dc planning with pt daughter through email. Pt daughter planning to be at [facility] tomorrow for family meeting. Pt daughter would like to continue looking for SNF at [place]. Pt evaluated by telepsych and recs for outpt services. SW faxed clinical referral to [facility] in [place] for review. Wood Drilling Machine Operator: Beverly Mckeon, RN Comment: 05/23 Family meeting at the bedside with attending, Palliative Care PROGRAM TECHNICIAN, CM and CHECKER LOADER. Medical questions answered per attending. CM and CHECKER LOADER spoke about DC planning/placement options/barriers. CHECKER LOADER sending clinicals to [facility] and [place] area to check on placement avalibility. Per [place], PAUL screen complete and pending number provided to CHECKER LOADER. CM and CHECKER LOADER attempting tank terminal gauger placement. Family requesting to speak with community service manager/administration about concerns with pt care/complaints. CM spoke with [employer] x2 to relay information. Email sent to community service manager as she is off to follow up with concerns once back in office. Wood Drilling Machine Operator: Yeimy Metcalf, RN Comment: 05/26 Telesitter removed by primary RN over the weekend. Telesitter remains out of the room at this time. Per CHECKER LOADER, still sending referrals and waiting on accepting facility. Pt also PAUL pending for tank terminal gauger placement. Wood Drilling Machine Operator: Yeimy Metcalf, RN Comment: 05/27 Per CHECKER LOADER, facilities requested by daughter in [place] are continuing to review. Precert to start once accepted. Wood Drilling Machine Operator: Yeimy Metcalf, RN Comment: 05/28 Per CHECKER LOADER, facilities still reviewing pt. Per CHECKER LOADER, [place] [facility] agreeable to take pt but daughter stating that facility is too far away. Precert to start once a facility accepts. Wood Drilling Machine Operator: Yeimy Metcalf, RN Comment: 05/29/25 Pre-cert pending to [facility] in [place]. Wood Drilling Machine Operator: Beverly Mckeon, RN Comment: 05/30 Precert remains PENDING for [facility]. Multiple facilites have been exhausted by CHECKER LOADER and all facilities picked by daughter have no availability, don't accept PAUL pending, or will not accept due to pt behaviors/history. Daughter previously agreeable to a middle point for pt between [place] and [place] so other family members could visit patient. Pt has been medically cleared for DC and DC planning needing to move forward with [facility] per CM Director Shireen. Daughter updated via email(daughters preferred contact method) that DC planning needing to move forward and we are moving forward with the facility that has accepted him and has a tank terminal gauger bed available. Daughter updated via email that she can move pt to a closer facility from [facility] if she desires. Wood Drilling Machine Operator: Yeimy Metcalf, RN Comment: 06/02 Per CHECKER LOADER, Precert remains PENDING for [facility]. *Per CHECKER LOADER, [facility] states insurance likely to deny due to refusal to work with therapy. Per CHECKER LOADER, facility hesitant to accept pt PAUL pending. *CM called : [facility], [phone], they can accept PAUL pending and do have bed availability, CHECKER LOADER updated to send recs for review. [facility], F:[phone], CHECKER LOADER updated to send recs for review. [facility], F:[phone], they do accept PAUL pending and are checking on mcfp bed availability, CHECKER LOADER updated to send recs for review. CM also called: Maria Fernanda Jay, [facility], [facility], [facility], [facility]. Awaiting return calls. *Per CHECKER LOADER, [facility] has clinically accepted and financial team is now reviewing pt. Wood Drilling Machine Operator: Yeimy Metcalf, RN - Respiratory Equipment Does the patient use/have any of these devices at home?: N/A - Community Services Substance Use Screening: Initiated - * L * Length of Stay LOS (Including day of Admission and Discharge): 22 LOS Score: 7 - * A * Acuity on Admission ER Provider if admitted from ER (view): RGMAXO Was patient admitted to hospital via Emergency Dept? Score: 3 - * C * Comorbidities Select All Conditions that Apply: Cerebral Disease (Any previous stroke or transient ischemic attack) Comorbidities Total Score: 1 - * E * Emergency Department Visits # of ER visits,6mos prior to admit,excl this admits ER visit: 0 Enter this number or 4 (whichever is smaller): 0 - LACE SCORE LACE Score: 11 - ANTICIPATED DISCHARGE Anticipated Discharge Date: 06/03/25 Entered by: Yeimy Metcalf RN on 06/02/25 1045 Report Signed by: Yeimy Metcalf RN on 06/03/25 1607 <<Signature on File>> <Electronically signed by Yeimy Metcalf RN> Co-Signed by: on SOCIAL WORK DAILY NOTE Observed: 025 1:30 PM Status: F Source: [facility] National Recruiter Patient: DIONNA CONCEPCION [address] : 1975 [place], [place] [address] Location: [address] [place] [address] Unit #: [id number] Social Work Daily Note Marky Olivo Service Date: 06/03/25 Daily Note - * Psychosocial Assessment * I have reviewed nursing and case management psychosocial information.: Yes - * Hospital Stay Days * Day 1 Note: 05/14/2025: c/s for Substance Abuse Screening. Pavan TRIPLETT. +tox for cannabinoids on admission. Hx of alcohol abuse. Enecphalopathy. Pt intubated overnight. National Recruiter to follow peripherally to discuss with pt when medically appropriate. Top Case Assembler: Yeimy Shah, BEST WORKER, AUTOMOBILE RENTAL AGENT Day 2 Note: 05/15/2025: SW following for Substance Abuse Screening. Tad AmbetterZach CIWA. +tox for cannabinoids on admission. Hx of alcohol abuse- Wernickes Enecphalopathy. Pt remains intubated this date. SW updated by nursing staff that the pt's family is requesting pt d/c to a SNF in the [place], [place] area when medically ready for d/c. KAYLENE called and discussed this with pt's daughter, Maria Fernanda. Maria Fernanda reports most of the family lives between [place] and [place], so [place] would be a good middle location. KAYLENE briefly explained that pt will need to be able to participate with therapy in order for insurance to approve a SNF OR pt will need to have funds to private pay OR pt will need to have Medicaid. Maria Fernanda would like to see how the pt progresses to determine if it will be a short term or mcfp placement. Maria Fernanda reports she has not talked with her father in 3 years. Maria Fernanda is unaware of pt's finances and does not know of any POA paperwork that the pt has ever completed. Maria Fernanda stated that the pt is not legally to anyone. Maria Fernanda reports the pt has three living children: Maria Fernanda Glynn PH: [phone], Beverly Jamey PH: [phone] AND Dionna Jamey PH: [phone]. Maria Fernanda reports Dionna will likely not want to participate in any decision making for the pt. KAYLENE explained that in [place] if there is no POA/Guardian and if pt is not legally , that any decisions will need to be a consensus between all living children. Maria Fernanda voiced understanding. Maria Fernanda would like to review a list of SNFs in [place], [place] to begin reviewing. Maria Fernanda reports her address is [address] [place] [phone]. A list of SNFs within 30 miles of Maria Fernanda's address with quality scores emailed to Maria Fernanda at [email or web address]. KAYLENE requested Maria Fernanda to provide a list of 5-10 choices as pt may be a difficult placement d/t history of alcohol abuse and insurance. D/c planning needs pending medical course. SW to continue following. Top Case Assembler: Yeimy Shah MSW, KARLA Day 3 Note: 05/16/2025: SW following for Substance Abuse Screening. Pavan TRIPLETT. +tox for cannabinoids on admission. Hx of alcohol abuse- Wernickes Enecphalopathy. Pt remains intubated this date. D/c planning needs pending medical course. SW to continue following. Top Case Assembler: Yeimy Shah MSW, KARLA Day 6 Note: 05-19-25 KAYLENE following for SNF/dc planning. JIMBO Crooks emailed pt daughter list of SNF options in [place]. DENISSE Crooks sent referral to [facility] for pt to be screened for PAUL benefit. Pt daughter gave choices of SNFs. Kaylene spoke with admissions of [facility] in [place] and faxed clinical referral to facility. Top Case Assembler: Marky Olivo 7 Note: 05-21-25 KAYLENE following for dc planning. DC plan curently pending. SNF referral sent to [facility] in [place] pt first choice and facility unable to accept. Pt daughter possibly wanting SNF in between [place] and [place]. Psych consult ordered. SW will continue to follow. Top Case Assembler: Marky Olivo 8 Note: 05-22-25 KAYLENE communicated dc planning with pt daughter through email. Pt daughter planning to be at [facility] tomorrow for family meeting. Pt daughter would like to continue looking fo rSNF at dc. Pt evaluated by telepsych and recs for outpt services. KAYLENE faxed clinical referral to [facility] in [place] for review. Top Case Assembler: Marky Olivo 9 Note: 05-23-25 KAYLENE and JIMBO spoke with pt and family at bedside along with pt medical provider. KAYLENE and JIMBO discussed LT care options at ia. Pt family continues to be agreeable to SNF. Family is interested in SNF placement residential between [place] and [place]. No preferenc eof facility just something residential for all family. KAYLENE sent referral to [facility] in [place] waiting on facility to review. Clinical referral also faxed to [facility] in [place] for review. Per [facility] PAUL application was completed and submitted on 05-22. Top Case Assembler: Marky Olivo day 12 Note: 05-26-25 KAYLENE following for SNF placement. KAYLENE sent referrals to [facility] and [facility] in [place]. Per admissions at both facilities they have minimal LT beds available and will review pt referral. KAYLENE emailed pt daughter to update her of dc planning. SW continuing to follow. Top Case Assembler: Marky Olivo 13 Note: 05-28-25 KAYLENE continuing to follow for SNF placement. Referrals being reviewed by [facility] and [facility]. Kaylene spoke with admissions at both facilities. Pt referrals denied by both facilities. [facility] in [facility] still able to accept. SW left voicemail for admissions at [facility]. KAYLENE sent an email to pt daughter Maria Fernanda to update her on dc plan and current status with facilities. Top Case Assembler: Marky lOivo 14 Note: 05-29-25 Pt precert pending to admit at [facility]. Per admissions at facility he will need to follwo up with corporate to see if pt is able to admit PAUL pending. Top Case Assembler: Marky Olivo Note: 05-30-25 Pt precert is currently pending at [facility] in [place]. KAYLENE emailed pt daughter Maria Fernanda to update her of dc plan and pending status. Top Case Assembler: Marky Olivo Note: 06-02-25 KAYLENE following for SNF placement/dc planning. Sw left voicemail for [facility] admisisons at [facility] at 0900. Kaylene spoke with [facility] at 1215. Per [facility] pt precert auth has not been processed not officially denied. Kaylene faxed PT/OT re-evals to submit to try for approval. Facilit yis unable to accept pt LT under PAUL peniding status. KAYLENE and JIMBO called facilities in [place] trying to find facilities to send referrals to who can accept pt PAUL pending. Referrals sent to [facility], [facility], [facility], [facility] and [facility]. KAYLENE spoke with admissions from [facility] pt clinically accepted by facility will need to get corporate business/financials to approve pt admitting under PAUL pending. KAYLENE waiting for facility approval. KAYLENE spoke with pt daughter Maria Fernanda via phone to update her of situation. Top Case Assembler: Marky Olivo Note: 06-03-25 KAYLENE spoke with Berenice admissions at [facility] in [place]. Per Berenice pt clinically accepted and she has approval for pt to admit under his PAUL pending status. KAYLENE spoke with pt daughter to update her of acceptance. KAYLENE scheduled transportation for 1315. CM and pt floor nurse updated. DC orders faxed to facility. DC packet placed on charts. Pt daughter updated of transport time. Top Case Assembler: Marky Olivo W - * Requested Intvs/Referrals * Top Case Assembler I Referrals: Substance Abuse Screening - Community Services/Interventions Substance Use Screening: Initiated - * HEALTHCARE DECISIONS * Living Will: Unknown Durable Power of Cable Splicer Helper for Health Care: No Directive, No SS Referral [facility] DNR Comfort Care: No Directive, No SS Referral [facility] DNR Comfort Care Arrest: No Directive, No SS Referral Entered by: Marky Olivo on 06/03/25 1217 Report Signed by: Marky Olivo on 06/03/25 1330 <<Signature on File>> <Electronically signed by Marky Olivo> Report Signed by: on POTASSIUM Collected: 5:12 AM Status: F Source: [facility] TYPE CODE TESTS RESULT OUT OF RANGE REFERENCE UNITS LAB L400.1500 Potassium 4.1 Normal 3.6-5.0 mEq/L Performed By: #### L400.1500 #### Main Laboratory ([facility]) [address] [place] [address] Regan Sahni MD PROGRESS NOTE Observed: 06/02/2025 10:53 PM Status: F Source: [facility] Medical Records Patient: DIONNA CONCEPCION [address] : 1975 [place], [place] [address] Location: [phone] Unit #: [id number] Progress Note Johnna Massey APRN, POWER BALLAST MACHINE OPERATOR Service Dt/Tm: 06/02/25 1500 Assessment and Plan (1) Skin breakdown: (2) Skin irritation: (3) Irritant contact dermatitis due friction or contact with other specified body fluids: Plan Facility skin care protocol. Pressure reduction mattress. Incontinence care Keep skin clean AND dry. Apply Zinc Oxide Paste to Intergluteal Cleft / Left Buttocks TID and as needed after incontinent episodes. Upon Discharge If SNF does not have a wound care provider, may schedule appointment in 10- 14days. History of Present Illness Date of Consultation: 06/02/25 Time Seen: 15:00 History of Present Illness: DIONNA CONCEPCION is a 49 yr old M who was admitted on 05/12/25 for RT MCA INFARCT/LT SIDED WEAKNESS. Allergies/Adverse Reactions No Known Drug Allergies Allergy (Verified 05/11/25 15:01) Home Medications amlodipine 10 mg tablet 10 mg PO DAILY 05/11/25 [Confirmed 05/11/25] aspirin 81 mg chewable tablet 1 tab PO DAILY 05/11/25 [Confirmed 05/11/25] omeprazole 20 mg capsule,delayed release 20 mg DAILY 05/21/25 [Confirmed 05/21/25] Past Medical History Medical History History of right MCA stroke Fatigue Chronic pancreatitis Alcoholism Metabolic encephalopathy Acute respiratory failure Smoker Hypertriglyceridemia Hypertension CVA (cerebral vascular accident) left sided defecits Past Surgical History Surgical History S/P rotator cuff repair Social History Caffeine Amount: 1-2/Day Current Type of Alcohol: Beer Current Alcohol Amount: Socially/Occasionally Smoking Status: Heavy tobacco smoker Type of Tobacco: Cigarettes Smoking Amount: 1 pack per day Family History Other No pertinent family history Review of Systems Constitutional: denies Fever or Chills Respiratory: denies Cough or Dyspnea Cardiovascular: denies Chest Pain or Palpitations Gastrointestinal: denies Nausea or Vomiting Physical Exam Last Vital Signs Temp Pulse Resp BP Pulse Ox O2 Flow RateFiO2 98.6 F 100 16 136/87 99 0 0 06/02/25 13:06/02/25 13:06/02/25 13:06/02/25 13:06/02/25 13:05/31/25 16:05/31/25 08: 32 32 32 32 32 56 15 Height (Ft AND In) 5 ft 7 in Admitting (IV Pump) Weight 61.4 kg Actual Weight (Kg) 70.4 kg General Appearance: Alert, Resting Comfortably and Cooperative Abdomen: BM (incontinent ) Neurologic: A AND O x3 and Muscle weakness; No Normal Movement AND Sensation Bilat Lower Extremities Psychological: Mood AND Affect Normal Intergluteal Cleft AND Buttocks with skin breakdown, irritation, AND erythema. Laboratory Last Values WBC 12.1 th/cmm (4.4-10.5) H 05/29/25 04:49 RBC 3.02 mil/cmm (4.50-6.00) L 05/29/25 04:49 Hgb 10.1 gm/dL (13.5-16.5) L 05/29/25 04:49 Hct 29.2 % (40.0-49.0) L 05/29/25 04:49 MCV 96.8 CU DEIDRA (80-97) 05/29/25 04:49 MCH 33.6 PG (27.5-33.0) H 05/29/25 04:49 MCHC 34.7 gm/dL (33.0-36.0) 05/29/25 04:49 RDW 17.7 % (12.0-16.0) H 05/29/25 04:49 Plt Count 470 th/cmm (150-400) H 05/29/25 04:49 Neut % (Auto) 70.7 % (40-70) H 05/22/25 05:28 Lymph % (Auto) 15.3 % (15-45) 05/22/25 05:28 Mcdonough % (Auto) 11.7 % (2-10) H 05/22/25 05:28 Eos % (Auto) 1.6 % (0-6) 05/22/25 05:28 Baso % (Auto) 0.7 % (0-2) 05/22/25 05:28 Nucleat RBC Rel Count 0.0 /100 WBC (<1) 05/22/25 05:28 Absolute Neuts (auto) 9700 /cmm (6113-0610) H 05/22/25 05:28 Absolute Lymphs (auto) 2100 /cmm (2916-1020) 05/22/25 05:28 Absolute Monos (auto) 1600 /cmm (0-800) H 05/22/25 05:28 Absolute Eos (auto) 200 /cmm (0-500) 05/22/25 05:28 Absolute Basos (auto) 100 /cmm (0-200) 05/22/25 05:28 Neutrophils % (Manual) 90.0 % (40-70) H 05/14/25 02:40 Band Neutrophils % 5.0 % (2-6) 05/14/25 02:40 Lymphocytes % (Manual) 1.0 % (15-45) L 05/14/25 02:40 Monocytes % (Manual) 3.0 % (2-10) 05/14/25 02:40 Metamyelocytes % 1.0 % 05/14/25 02:40 Abs Neuts (Manual) 05021 /cmm (8286-0529) H 05/14/25 02:40 Abs Lymphs (Manual) 364 /cmm (9564-8368) L 05/14/25 02:40 Abs Monocytes (Manual) 1092 /cmm (0-800) H 05/14/25 02:40 Absolute Eos (Manual) 0 /cmm (0-500) 05/14/25 02:40 Abs Basophils (Manual) 0 /cmm (0-200) 05/14/25 02:40 Nucleated RBCs # 1 /100 WBC 05/13/25 04:55 Anisocytosis 1+ 05/22/25 05:28 RBC Morph Comment Test not indicated 05/14/25 02:40 PT 11.6 Sec (9.6-13.3) 05/11/25 15:14 INR 0.98 (0.9-1.2) 05/11/25 15:14 Sample Site Vein 05/16/25 10:55 Collected by Daryl Gruber 05/14/25 12:54 ABG pH 7.42 (7.35-7.45) 05/14/25 12:54 ABG pCO2 at Pt Temp 25 mmHg (35-45) L 05/14/25 12:54 ABG pO2 at Pt Temp 82 mmHg (80-105) 05/14/25 12:54 ABG HCO3 16.1 mmol/L (22-26) L 05/14/25 12:54 ABG O2 Saturation 97 % (95-98) 05/14/25 12:54 ABG Base Excess -8 mmol/L (-2-3) L 05/14/25 12:54 VBG pH 7.43 (7.31-7.41) H 05/16/25 10:55 VBG pCO2 at Pat Temp 27 mmHg (41-51) L 05/16/25 10:55 VBG pO2 at Pat Temp 35 mmHg (80-105) L 05/16/25 10:55 VBG HCO3 17.7 mmol/L (23.0-28.0) L 05/16/25 10:55 VBG O2 Saturation 71 % (95-98) L 05/16/25 10:55 VBG Base Excess -7 mmol/L (-2-3) L 05/16/25 10:55 Respiration Rate 16 05/16/25 10:55 Patient Equipment Vent 05/16/25 10:55 Vent Mode AC 05/16/25 10:55 FiO2 0.30 05/16/25 10:55 FiO2 % 0.40 05/14/25 12:54 Tidal Volume 500 05/16/25 10:55 PEEP 5.0 05/16/25 10:55 Blood Gas Notified By Yes 05/16/25 10:55 Sodium 137 mEq/L (135-145) 05/31/25 05:29 Potassium 3.7 mEq/L (3.6-5.0) 06/02/25 05:30 Chloride 106 mEq/L (101-111) 05/31/25 05:29 Carbon Dioxide 24 mEq/L (21-32) 05/31/25 05:29 Anion Gap 7 (4-12) 05/31/25 05:29 BUN 20 mg/dL (7-20) 05/31/25 05:29 Creatinine 0.75 mg/dL (0.60-1.30) 05/31/25 05:29 GFR Calculation > 60 (60-) 05/31/25 05:29 POC Whole Bld Glucose 124 mg/dl (70-110) H 05/17/25 06:00 Random Glucose 90 mg/dL (70-110) 05/31/25 05:29 Fasting Glucose 139 mg/dL (70-110) H 05/14/25 21:42 Hemoglobin A1c 5.0 % (4.4-6.4) 05/11/25 20:10 Estim Average Glucose 97 mg/dL 05/11/25 20:10 Lactic Acid 1.5 mmol/L (0.5-2.0) 05/17/25 16:31 Calcium 9.30 mg/dL (8.8-10.5) 05/31/25 05:29 Ionized Calcium 1.17 mmol/L (1.15-1.29) 05/17/25 04:35 Phosphorus 6.1 mg/dL (2.4-4.7) H 05/29/25 04:49 Magnesium 2.1 mg/dL (1.8-2.5) 06/01/25 05:17 Total Bilirubin 0.8 mg/dL (0.2-1.0) 05/24/25 06:35 Direct Bilirubin 0.2 mg/dL (0.1-0.2) 05/24/25 06:35 AST 27 IU/L (15-41) 05/24/25 06:35 ALT 35 IU/L (10-40) 05/24/25 06:35 Alkaline Phosphatase 203 IU/L (41-137) H 05/24/25 06:35 Troponin I High Sens 6 ng/L (0-20) 05/11/25 15:14 Total Protein 5.4 g/dL (6.2-8.0) L 05/24/25 06:35 Albumin 3.6 g/dL (3.5-5.0) 05/29/25 04:49 Albumin/Globulin Ratio 1.3 (1.5-2.5) L 05/17/25 04:35 Prealbumin 15.0 mg/dL (16.0-38.0) L 05/13/25 04:54 Triglycerides 115 mg/dL (<150) 05/15/25 01:55 Cholesterol 238 mg/dL (<200) H 05/11/25 20:10 LDL Cholesterol Direct 171 mg/dL (-100) H 05/11/25 20:10 VLDL Cholesterol, Calc 32 mg/dL (<39) 05/11/25 20:10 HDL Cholesterol 34 mg/dL (40-) L 05/11/25 20:10 LDL/HDL Ratio 5.0 (<3.1) H 05/11/25 20:10 Cholesterol/HDL Ratio 7.0 (4.0-5.0) H 05/11/25 20:10 Amylase 17 U/L (30-100) L 05/13/25 04:54 Lipase 40 IU/L (21-51) 05/13/25 04:54 Thiamine 359 nmol/L H 05/24/25 16:58 Procalcitonin 0.25 ng/mL (-0.50) 05/13/25 04:54 TSH 1.879 mcIU/mL (0.490-4.670) 05/11/25 20:10 Prolactin 9.02 ng/mL (2.64-13.13) 05/17/25 16:31 Urine Color Yellow 05/13/25 09:16 Urine Appearance Cloudy 05/13/25 09:16 Urine pH 7.0 (5.0-8.0) 05/13/25 09:16 Ur Specific [place] 1.021 (1.000-1.035) 05/13/25 09:16 Urine Protein 20 mg/dl (Negative) 05/13/25 09:16 Urine Glucose (UA) 30 mg/dL (Negative) 05/13/25 09:16 Urine Ketones Negative (Negative) 05/13/25 09:16 Urine Blood >1.0 mg/dl (Negative) 05/13/25 09:16 Urine Nitrite Negative (Negative) 05/13/25 09:16 Urine Bilirubin 2 mg/dL (Negative) 05/13/25 09:16 Urine Urobilinogen >10.0 mg/dl (0.2-1.0) 05/13/25 09:16 Ur Leukocyte Esterase 75 Pati/uL (Negative) 05/13/25 09:16 U Hyaline Cast (Auto) 3-5 /LPF H 05/13/25 09:16 Urine RBC >100 /HPF H 05/13/25 09:16 Ur WBC Total Counted 21-50 /HPF H 05/13/25 09:16 Ur Squamous Epith Cells None /HPF 05/13/25 09:16 Ur Renal Epithelial Cell 0-5 /HPF 05/13/25 09:16 Urine Mucus (Auto) Present 05/13/25 09:16 Ur Culture Indicated? Yes 05/13/25 09:16 Fecal Screen VRE (PCR) Negative (Negative) 05/14/25 04:06 Urine Opiates Screen Negative (Negative) 05/13/25 09:16 Ur Oxycodone Screen Negative (Negative) 05/13/25 09:16 Ur Barbiturates Screen Negative (Negative) 05/13/25 09:16 Ur Phencyclidine Scrn Negative (Negative) 05/13/25 09:16 Ur Amphetamines Screen Negative (Negative) 05/13/25 09:16 U Benzodiazepines Scrn Negative (Negative) 05/13/25 09:16 Urine Cocaine Screen Negative (Negative) 05/13/25 09:16 U Cannabinoids Screen Positive (Negative) H 05/13/25 09:16 Drug Screen Comment 05/13/25 09:16 Alcohol, Quantitative < 0.010 gm/dL 05/11/25 15:14 Specimen Source Nasopharyngeal Swab 05/12/25 20:50 Adenovirus (PCR) Not Detected 05/12/25 20:50 B. pertussis DNA (PCR) Not Detected 05/12/25 20:50 B.parapertussis DNA PCR Not Detected 05/12/25 20:50 C. pneumoniae DNA (PCR) Not Detected 05/12/25 20:50 Coronavirus OC43 (PCR) Not Detected 05/12/25 20:50 Coronavirus HKU1 (PCR) Not Detected 05/12/25 20:50 Coronavirus 229E (PCR) Not Detected 05/12/25 20:50 Coronavirus NL63 (PCR) Not Detected 05/12/25 20:50 Human Metapneumovir PCR Not Detected 05/12/25 20:50 Influenza A (RT-PCR) Not Detected 05/12/25 20:50 Influenza B (RT-PCR) Not Detected 05/12/25 20:50 M. pneumoniae (PCR) Not Detected 05/12/25 20:50 Parainfluenza 1 (PCR) Not Detected 05/12/25 20:50 Parainfluenza 2 (PCR) Not Detected 05/12/25 20:50 Parainfluenza 3 (PCR) Not Detected 05/12/25 20:50 Parainfluenza 4 (PCR) Not Detected 05/12/25 20:50 RSV (PCR) Not Detected 05/12/25 20:50 Entero/Rhino (PCR) Not Detected 05/12/25 20:50 SARS-CoV-2 (PCR) Not Detected 05/12/25 20:50 Slides for Path Review * 05/13/25 04:55 Entered by: FREDY Zayas on 06/02/25 1646 Report Signed by: Johnna DANIEL on 06/02/25 1648 <<Signature on File>> < 3312 <<Signature on File>> <Electronically signed by Naldo Paez MD> SOCIAL WORK DAILY NOTE Observed: 07/28/2 025 3:41 PM Status: F Source: [facility] National Recruiter Patient: JAMEYDIONNA Danny [address] : 1975 [place], [place] [address] Location: [phone] Unit #: [id number] Social Work Daily Note Marky W Geovani Service Date: 06/02/25 SW Daily Note - * Psychosocial Assessment * I have reviewed nursing and case management psychosocial information.: Yes - * Hospital Stay Days * Day 1 Note: 05/14/2025: SW c/s for Substance Abuse Screening. Tad Ambetter. CIWA. +tox for cannabinoids on admission. Hx of alcohol abuse. Enecphalopathy. Pt intubated overnight. National Recruiter to follow peripherally to discuss with pt when medically appropriate. Top Case Assembler: Yeimy Shah, BEST WORKER, AUTOMOBILE RENTAL AGENT Day 2 Note: 05/15/2025: SW following for Substance Abuse Screening. Tad Ambetter. CIWA. +tox for cannabinoids on admission. Hx of alcohol abuse- Wernickes Enecphalopathy. Pt remains intubated this date. KAYLENE updated by nursing staff that the pt's family is requesting pt d/c to a SNF in the [place], [place] area when medically ready for d/c. KAYLENE called and discussed this with pt's daughter, Maria Fernanda. Maria Fernanda reports most of the family lives between [place] and [place], so [place] would be a good middle location. KAYLENE briefly explained that pt will need to be able to participate with therapy in order for insurance to approve a SNF OR pt will need to have funds to private pay OR pt will need to have Medicaid. Maria Fernanda would like to see how the pt progresses to determine if it will be a short term or mcfp placement. Maria Fernanda reports she has not talked with her father in 3 years. Maria Fernanda is unaware of pt's finances and does not know of any POA paperwork that the pt has ever completed. Maria Fernanda stated that the pt is not legally to anyone. Maria Fernanda reports the pt has three living children: Maria Fernanda Glynn PH: [phone], Beverly Concepcion PH: [phone] AND Dionna Concepcion PH: [phone]. Maria Fernanda reports Dionna will likely not want to participate in any decision making for the pt. KAYLENE explained that in [place] if there is no POA/Guardian and if pt is not legally , that any decisions will need to be a consensus between all living children. Maria Fernanda voiced understanding. Maria Fernanda would like to review a list of SNFs in [place], [place] to begin reviewing. Maria Fernanda reports her address is [address] [place] [id number]. A list of SNFs within 30 miles of Maria Fernanda's address with quality scores emailed to Maria Fernanda at [email or web address]. KAYLENE requested Maria Fernanda to provide a list of 5-10 choices as pt may be a difficult placement d/t history of alcohol abuse and insurance. D/c planning needs pending medical course. SW to continue following. Top Case Assembler: Yeimy Shah, DENISSE, KARLA Day 3 Note: 05/16/2025: KAYLENE following for Substance Abuse Screening. Pavan Huynh. UZIEL. +tox for cannabinoids on admission. Hx of alcohol abuse- Wernickes Enecphalopathy. Pt remains intubated this date. D/c planning needs pending medical course. SW to continue following. Top Case Assembler: Yeimy Shah, DENISSE, KARLA Day 6 Note: 05-19-25 KAYLENE following for SNF/dc planning. JIMBO Crooks emailed pt daughter list of SNF options in [place]. DENISSE Crooks sent referral to [facility] for pt to be screened for PAUL benefit. Pt daughter gave choices of SNFs. Kaylene spoke with admissions of [facility] in [place] and faxed clinical referral to facility. Top Case Assembler: Marky Olivo Day 7 Note: 05-21-25 KAYLENE following for dc planning. DC plan curently pending. SNF referral sent to [facility] in [place] pt first choice and facility unable to accept. Pt daughter possibly wanting SNF in between [place] and [place]. Psych consult ordered. SW will continue to follow. Top Case Assembler: Marky Olivo day 8 Note: 05-22-25 KAYLENE communicated dc planning with pt daughter through email. Pt daughter planning to be at [facility] tomorrow for family meeting. Pt daughter would like to continue looking fo [place]SNF at [place]. Pt evaluated by telepsych and recs for outpt services. KAYLENE faxed clinical referral to [facility] in [place] for review. Top Case Assembler: Marky Olivo 9 Note: 05-23-25 SW and CM spoke with pt and family at bedside along with pt medical provider. SW and CM discussed LT care options at [facility]. Pt family continues to be agreeable to SNF. Family is interested in SNF placement residential between [place] and [place]. No preferenc eof facility just something residential for all family. SW sent referral to [facility] in [place] waiting on facility to review. Clinical referral also faxed to [facility] in [place] for review. Per [facility] PAUL application was completed and submitted on 05-22. Top Case Assembler: Marky Olivo 12 Note: 05-26-25 SW following for SNF placement. KAYLENE sent referrals to [facility] and [facility] in [place]. Per admissions at both facilities they have minimal LT beds available and will review pt referral. SW emailed pt daughter to update her of dc planning. SW continuing to follow. Top Case Assembler: Marky Olivo 13 Note: 05-28-25 SW continuing to follow for SNF placement. Referrals being reviewed by [facility] and [facility]. Kaylene spoke with admissions at both facilities. Pt referrals denied by both facilities. [facility] in [facility] still able to accept. SW left voicemail for admissions at [facility]. KAYLENE sent an email to pt daughter Maria Fernanda to update her on dc plan and current status with facilities. Top Case Assembler: Marky Olivo Note: 05-29-25 Pt precert pending to admit at [facility]. Per admissions at facility he will need to follwo up with corporate to see if pt is able to admit PAUL pending. Top Case Assembler: Marky Olivo Note: 05-30-25 Pt precert is currently pending at [facility] in [place]. KAYLENE emailed pt daughter Maria Fernanda to update her of dc plan and pending status. Top Case Assembler: Marky Olivo Note: 06-02-25 SW following for SNF placement/dc planning. Sw left voicemail for [facility] admisisons at [facility] at 0900. Sw spoke with [facility] at 1215. Per [facility] pt precert auth has not been processed not officially denied. Sw faxed PT/OT re-evals to submit to try for approval. Facilit yis unable to accept pt LT under PAUL peniding status. KAYLENE and CM called facilities in [place] trying to find facilities to send referrals to who can accept pt PAUL pending. Referrals sent to [facility], [facility] and [facility]. SW spoke with admissions from [facility] pt clinically accepted by facility will need to get corporate business/financials to approve pt admitting under PAUL pending. SW waiting for facility approval. SW spoke with pt daughter Maria Fernanda via phone to update her of situation. Top Case Assembler: Marky Olivo - * Requested Intvs/Referrals * Top Case Assembler I Referrals: Substance Abuse Screening - Community Services/Interventions Substance Use Screening: Initiated - * HEALTHCARE DECISIONS * Living Will: Unknown Durable Power of Cable Splicer Helper for Health Care: No Directive, No SS Referral [facility] DNR Comfort Care: No Directive, No SS Referral [facility] DNR Comfort Care Arrest: No Directive, No SS Referral Entered by: Marky Olivo on 06/02/25 1449 Report Signed by: Marky Olivo on 06/02/25 1541 <<Signature on File>> <Electronically signed by Marky Olivo> Report Signed by: on PROGRESS NOTE - HOSPITALIST Observed: 3:13 PM Status: F Source: [facility] Records Patient: DIONNA CONCEPCION [address] 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 With metabolic encephalopathy likely secondary to electrolyte disturbance and sepsis CT head-no acute infarct. MRI is suspicious for Warnicke's encephalopathy. Neurology consult appreciated. Continue IV thiamine, multivitamin and folic acid. Continue aspirin, high-dose of Lipitor (monitoring LFT). Psychiatry consult EEG-no epileptiform waves. Repeated MRI on 05/13 report reviewed, chronic changes. Area of encephalomalacia consistent with remote infarction. There is subtle periaqueductal ward enhancement. There has been improvement since prior exam, however pattern can be seen in the setting of thiamine deficiency/Wernicke''s Korsakoff in the correct clinical setting. Plan: Currently on ASA, statin, beta-jolie, thiamine, folic acid On antipsychotic medication [clonazepam and Seroquel] Pending SNF placement. (2) CVA (cerebral vascular accident): Status: Chronic Qualifiers: CVA mechanism: unspecified Qualified Code(s): I63.9 - Cerebral infarction, unspecified Plan: Old infarct in MCA territory (3) Alcoholism: Status: Chronic Plan: Stable Continue thiamine and folic acid (4) Septic shock: Status: Resolved Plan: Resolved (5) Hypertension: Status: Acute Qualifiers: Hypertension type: primary hypertension Qualified Code(s): I10 - Essential (primary) hypertension Plan: Well-controlled Continue low-dose antihypertensive medication. (6) Epistaxis: Status: Acute Plan: Continue moisturizing with normal saline gel TID Advised patient for avoid nose picking. (7) GI bleed: Status: Ruled-out Qualifiers: GI bleed type/associated pathology: unspecified gastrointestinal hemorrhage type Qualified Code(s): K92.2 - Gastrointestinal hemorrhage, unspecified Plan: Initial concern for GI bleed GI was consulted???status post ERCP--No sign of active bleeding Hemoglobin is stable [10.1 g/dL] On pantoprazole 40 mg daily. Plan 05/11/2025: Admission:??? a 49-year-old male with a history of alcohol abuse and previous CVA, was admitted to [facility] with complaints of excessive fatigue and generalized weakness. Initial CT head suggested a subacute right MCA infarct. Labs showed hypokalemia and elevated troponin. He was started on aspirin and electrolyte replacement. Neurology was consulted, and an MRI was ordered. 05/12/2025: Neurology Evaluation:???MRI confirmed old cortical gyral ischemic infarcts. Neurology recommended continuing aspirin and statin therapy. Echocardiography showed normal LV function with no PFO. * Infectious Disease Consultation:???Patient developed leukocytosis, and sepsis protocol was initiated. Blood cultures were obtained, and Rocephin was started switched to Zosyn 05/13/2025: WBC count increased significantly, and the patient developed fever and tachycardia. ID switched to Unasyn. CT abdomen/pelvis suggested diverticulitis and chronic pancreatitis. * Critical Care Consultation:???Due to worsening clinical status, including tachypnea and altered mental status, the patient was transferred to the ICU. For possible alcohol withdrawal , DTs, Warnicke encephalopathy 05/14/2025:???The patient was intubated for airway protection due to altered mental status and suspected aspiration. MRCP showed choledocholithiasis, and ERCP was planned. * General surgery was consulted for small bowel obstruction, and an NG tube was placed. 05/15/2025: ERCP Procedure:???Successful sphincterotomy and stone extraction were performed. The patient remained in the ICU for continued monitoring and management of sepsis and respiratory failure. 05/16/2025: he patient was extubated and showed signs of clinical improvement. He remained on antibiotics and supportive care. 05/17/2025:The patient was stable, with resolved sepsis and improved hemodynamics. He was transferred out of the ICU. 05/20/2025: Continued management of Wernicke's encephalopathy with thiamine and multivitamins. The patient showed gradual improvement in mental status. 05/22/2025: Psychiatry Consultation:???Evaluated for encephalopathy and alcohol withdrawal delirium. Recommendations included continuing thiamine and outpatient psychiatric follow-up. * Palliative Care Consultation:???Discussed goals of care with family. The patient was oriented to self and partially to the situation. Family expressed interest in rehabilitation or long-term care placement. Continue to be full code 05/23/2025: Repeated MRI:???A follow-up MRI of the brain was performed, showing diffuse involutional changes and chronic microvascular deep white matter disease. There was an area of encephalomalacia and gliosis along the right inferior frontal gyrus, consistent with remote infarct. Subtle FLAIR and T2 hyperintensity were noted along the ventricular surface of the 3rd ventricle, periaqueductal ward, and mamillary bodies, suggestive of thiamine deficiency/Wernicke's Korsakoff syndrome. Improvement was noted since the prior exam. Aspirin and Plavix held due to nausea 05/24/2025: Patient was lethargic, aggressive and refused examination in the morning however mentation improved after physical therapist worked with the patient. 05/25 Awake and alert. Engaging in conversation. AO x 2. Episode of pneumonia labs. He thought he is in different hospital ;however he remembered when i told him. He is aware of month and year 05/26 awake and alert. Remember our discussion yesterday. Can resume aspirin today as per neurology recommendation. Diastolic blood pressure elevated we can resume amlodipine 2.5 mg daily and monitor vitals 05/27. Awake and alert. Aspirin restarted, no more discussed. Outpatient follow- up recommended by neurology. Blood pressure better controlled 05/28 doing well. Dry skin noted on the nostrils. Saline gel ordered 3 times daily. Continue aspirin 05/29 doing well. Waiting for SNF placement. 05/30 overall doing well, still waiting for SNF placement. 05/31 doing well, tolerating oral diet and doing physical therapy. 06/01 waiting for SNF placement. 06/02. Confused today. Urinary retention noted. Pending SNF placement Current Code Status AND Diet: 05/11/25 18:30 Code Status Routine Resuscitation Status: Full Code Code Status Order Placed: Code Status Ordered 05/11/25 at 1830 05/17/25 10:31 AHA Diet Texture: Regular Fluid Restrictions?: No Subjective Subjective: Primary Care Provider: Tay Camara MD Chief Complaint: RT MCA INFARCT/LT SIDED WEAKNESS Patient seen and examined this morning. Patient slightly confused. Urinary retention noted. Pending SNF placement. Patient Status AND Estimated DC Date Patient Registration Status: Inpatient Objective Physical Exam: GEN: No acute distress, lying comfortably HEENT: No lymphadenopathy, neck is supple Chest: Bilateral air entry, no wheezing or rhonchi CVS: S1 and S2, no gallop or murmur Abdomen: Soft, normal bowel sound, no organomegaly Extremities: No edema bilateral lower extremities. Social determinants of health completed per CM, reviewed. Constitutional: Last Vital Signs Temp Pulse Resp BP Pulse Ox O2 Flow RateFiO2 97.8 F 95 16 136/108 H 99 0 0 06/02/25 07:06/02/25 07:06/02/25 07:06/02/25 07:06/02/25 07:05/31/25 16:05/31/25 08: 45 45 45 45 45 56 15 Intake and Output Intake Total 320 337 Balance 320 337 Admitting (IV Pump) Weight 61.4 kg Actual Weight (Kg) 70.4 kg Data Labs: Potassium 3.7 The last 24 hours of labs have been reviewed. Imaging: I have reviewed the diagnostic images in the EMR. Medications and Comanagement: Medications reviewed separately. Pressure Injury/Pressure Area of Concern Sacrum: Site identified as: Area of Concern Provider Reviewed: Management of wounds per consulted wound provider Ischium (Buttocks) Left Open: Provider Reviewed: Management of wounds per consulted wound provider Ischium (Buttocks): Site identified as: Area of Concern Provider Reviewed: Management of wounds per consulted wound provider Entered by: Rose Sanchez MD on 06/02/25 0902 Report Signed by: Rose Sanchez MD on 06/02/25 1513 <<Signature on File>> <Electronically signed by Rose Sanchez MD> Report Signed by: on POTASSIUM Collected: 5:30 AM Status: F Source: [facility] TYPE CODE TESTS RESULT OUT OF RANGE REFERENCE UNITS LAB L400.1500 Potassium 3.7 Normal 3.6-5.0 mEq/L Performed By: #### L400.1500 #### Main Laboratory ([facility]) [address] [place] [address] Regan Sahni MD PROGRESS NOTE - HOSPITALIST Observed: 11:00 AM Status: F Source: [facility] Records Patient: DIONNA CONCEPCION [address] : 1975 [place], [place] [address] Location: [phone] Unit #: [id number] Progress Note - Hospitalist Aimee Chester MD Service Dt/Tm: 06/01/25 1012 Assessment/Plan Assessment/Plan (1) Wernickes encephalopathy: Status: Acute Plan: Stable Hx alcohol abuse and previous stroke with residual left-sided weakness (right MCA stroke in 01/28) presented with generalized weakness and confusion. With metabolic encephalopathy likely secondary to electrolyte disturbance and sepsis CT head-no acute infarct. MRI is suspicious for Warnicke's encephalopathy. Neurology consult appreciated. Continue IV thiamine, multivitamin and folic acid. Continue aspirin, high-dose of Lipitor (monitoring LFT). Psychiatry consult EEG-no epileptiform waves. Repeated MRI on 05/13 report reviewed, chronic changes. Area of encephalomalacia consistent with remote infarction. There is subtle periaqueductal ward enhancement. There has been improvement since prior exam, however pattern can be seen in the setting of thiamine deficiency/Wernicke''s Korsakoff in the correct clinical setting. Plan: Currently on ASA, statin, beta-jolie, thiamine, folic acid On antipsychotic medication [clonazepam and Seroquel] Pending SNF placement. (2) CVA (cerebral vascular accident): Status: Chronic Qualifiers: CVA mechanism: unspecified Qualified Code(s): I63.9 - Cerebral infarction, unspecified Plan: Old infarct in MCA territory (3) Alcoholism: Status: Chronic Plan: Stable Continue thiamine and folic acid (4) Septic shock: Status: Resolved Plan: Resolved (5) Hypertension: Status: Acute Qualifiers: Hypertension type: primary hypertension Qualified Code(s): I10 - Essential (primary) hypertension Plan: Well-controlled Continue low-dose antihypertensive medication. (6) Epistaxis: Status: Acute Plan: Continue moisturizing with normal saline gel TID Advised patient for avoid nose picking. (7) GI bleed: Status: Ruled-out Qualifiers: GI bleed type/associated pathology: unspecified gastrointestinal hemorrhage type Qualified Code(s): K92.2 - Gastrointestinal hemorrhage, unspecified Plan: Initial concern for GI bleed GI was consulted???status post ERCP--No sign of active bleeding Hemoglobin is stable [10.1 g/dL] On pantoprazole 40 mg daily. Plan 05/11/2025: Admission:??? a 49-year-old male with a history of alcohol abuse and previous CVA, was admitted to [facility] with complaints of excessive fatigue and generalized weakness. Initial CT head suggested a subacute right MCA infarct. Labs showed hypokalemia and elevated troponin. He was started on aspirin and electrolyte replacement. Neurology was consulted, and an MRI was ordered. 05/12/2025: Neurology Evaluation:???MRI confirmed old cortical gyral ischemic infarcts. Neurology recommended continuing aspirin and statin therapy. Echocardiography showed normal LV function with no PFO. * Infectious Disease Consultation:???Patient developed leukocytosis, and sepsis protocol was initiated. Blood cultures were obtained, and Rocephin was started switched to Zosyn 05/13/2025: WBC count increased significantly, and the patient developed fever and tachycardia. ID switched to Unasyn. CT abdomen/pelvis suggested diverticulitis and chronic pancreatitis. * Critical Care Consultation:???Due to worsening clinical status, including tachypnea and altered mental status, the patient was transferred to the ICU. For possible alcohol withdrawal , DTs, Warnicke encephalopathy 05/14/2025:???The patient was intubated for airway protection due to altered mental status and suspected aspiration. MRCP showed choledocholithiasis, and ERCP was planned. * General surgery was consulted for small bowel obstruction, and an NG tube was placed. 05/15/2025: ERCP Procedure:???Successful sphincterotomy and stone extraction were performed. The patient remained in the ICU for continued monitoring and management of sepsis and respiratory failure. 05/16/2025: he patient was extubated and showed signs of clinical improvement. He remained on antibiotics and supportive care. 05/17/2025:The patient was stable, with resolved sepsis and improved hemodynamics. He was transferred out of the ICU. 05/20/2025: Continued management of Wernicke's encephalopathy with thiamine and multivitamins. The patient showed gradual improvement in mental status. 05/22/2025: Psychiatry Consultation:???Evaluated for encephalopathy and alcohol withdrawal delirium. Recommendations included continuing thiamine and outpatient psychiatric follow-up. * Palliative Care Consultation:???Discussed goals of care with family. The patient was oriented to self and partially to the situation. Family expressed interest in rehabilitation or long-term care placement. Continue to be full code 05/23/2025: Repeated MRI:???A follow-up MRI of the brain was performed, showing diffuse involutional changes and chronic microvascular deep white matter disease. There was an area of encephalomalacia and gliosis along the right inferior frontal gyrus, consistent with remote infarct. Subtle FLAIR and T2 hyperintensity were noted along the ventricular surface of the 3rd ventricle, periaqueductal ward, and mamillary bodies, suggestive of thiamine deficiency/Wernicke's Korsakoff syndrome. Improvement was noted since the prior exam. Aspirin and Plavix held due to nausea 05/24/2025: Patient was lethargic, aggressive and refused examination in the morning however mentation improved after physical therapist worked with the patient. 05/25 Awake and alert. Engaging in conversation. AO x 2. Episode of pneumonia labs. He thought he is in different hospital ;however he remembered when i told him. He is aware of month and year 05/26 awake and alert. Remember our discussion yesterday. Can resume aspirin today as per neurology recommendation. Diastolic blood pressure elevated we can resume amlodipine 2.5 mg daily and monitor vitals 05/27. Awake and alert. Aspirin restarted, no more discussed. Outpatient follow- up recommended by neurology. Blood pressure better controlled 05/28 doing well. Dry skin noted on the nostrils. Saline gel ordered 3 times daily. Continue aspirin 05/29 doing well. Waiting for SNF placement. 05/30 overall doing well, still waiting for SNF placement. 05/31 doing well, tolerating oral diet and doing physical therapy. 06/01 waiting for SNF placement. Current Code Status AND Diet: 05/11/25 18:30 Code Status Routine Resuscitation Status: Full Code Code Status Order Placed: Code Status Ordered 05/11/25 at 1830 05/17/25 10:31 AHA Diet Texture: Regular Fluid Restrictions?: No Subjective Subjective: Primary Care Provider: Tay Camara MD Chief Complaint: RT MCA INFARCT/LT SIDED WEAKNESS Patient was seen and examined, no acute distress, resting comfortably on recliner. Waiting for SNF placement. Patient Status AND Estimated DC Date Patient Registration Status: Inpatient Objective Physical Exam: GEN: No acute distress, sitting comfortably, tolerating oral diet HEENT: No lymphadenopathy, neck is supple, left gaze palsy, dry skin on the nose Chest: Bilateral air entry, no wheezing or rhonchi CVS: S1 and S2, sinus tachycardia, no gallop or murmur Abdomen: Soft, normal bowel sound, no organomegaly INDUCTION MACHINE SETTER: Chronic left-sided weakness with history of CVA. Extremities: No edema bilateral lower extremities. Psychologically: Normal mood and behavior. Constitutional: Last Vital Signs Temp Pulse Resp BP Pulse Ox O2 Flow RateFiO2 98.7 F 103 H 16 136/96 H 97 0 0 06/01/25 08:06/01/25 08:06/01/25 08:06/01/25 08:06/01/25 08:05/31/25 16:05/31/25 08: 41 41 41 41 41 56 15 Intake and Output Intake Total 1472 320 Output Total 550 Balance 922 320 Admitting (IV Pump) Weight 61.4 kg Actual Weight (Kg) 68.4 kg Data Labs: Magnesium 2.1 Potassium 3.7 The last 24 hours of labs have been reviewed. Imaging: I have reviewed the diagnostic images in the EMR. Medications and Comanagement: Medications reviewed separately. Pressure Injury/Pressure Area of Concern Sacrum: Site identified as: Area of Concern Provider Reviewed: Assessed wound today ??? agree with findings as above Ischium (Buttocks) Left Open: Provider Reviewed: Assessed wound today ??? agree with findings as above Ischium (Buttocks): Site identified as: Area of Concern Provider Reviewed: Assessed wound today ??? agree with findings as above Entered by: Aimee Chester MD on 06/01/25 1012 Report Signed by: Aimee Chester MD on 06/01/25 1100 <<Signature on File>> <Electronically signed by Aimee Chester MD> Report Signed by: on POTASSIUM Collected: 5 5:17 AM Status: F Source: [facility] TYPE CODE TESTS RESULT OUT OF RANGE REFERENCE UNITS LAB L400.1500 Potassium 3.7 Normal 3.6-5.0 mEq/L Performed By: #### L400.1500 , L400.5100 #### Main Laboratory ([facility]) [address] [place] [address] Regan Sahni MD MAGNESIUM Collected: 5 5:17 AM Status: F Source: [facility] TYPE CODE TESTS RESULT OUT OF RANGE REFERENCE UNITS LAB L400.5100 Magnesium 2.1 Normal 1.8-2.5 mg/dL Performed By: #### L400.1500 , L400.5100 #### Main Laboratory ([facility]) [address] [facility] [address] Regan Sahni MD CONSULTATION Observed: 05/31/2025 2:41 PM Status: F Source: [facility] Patient: ANGELIADIONNA WINTERS [address] : 1975 [place], [place] [address] Location: [phone] Unit #: [id number] [facility] #: [id number] Consultation Johnna Massey APRN, CNP Service Date: 05/30/25 History of Present Illness Date of Consultation: 05/30/25 Time Seen: 15:15 History of Present Illness: DIONNA CONCEPCION is a 49 yr old M who was admitted on 05/12/25 for RT MCA INFARCT/LT SIDED WEAKNESS. ED documents indicate patient arrived with AMS. Patient is a poor historian and unable to give full health history. Patient with plans to discharge to a SNF. Allergies/Adverse Reactions No Known Drug Allergies Allergy (Verified 05/11/25 15:01) Home Medications amlodipine 10 mg tablet 10 mg PO DAILY 05/11/25 [Confirmed 05/11/25] aspirin 81 mg chewable tablet 1 tab PO DAILY 05/11/25 [Confirmed 05/11/25] omeprazole 20 mg capsule,delayed release 20 mg DAILY 05/21/25 [Confirmed 05/21/25] Past Medical History Medical History History of right MCA stroke Fatigue Chronic pancreatitis Alcoholism Metabolic encephalopathy Acute respiratory failure Smoker Hypertriglyceridemia Hypertension CVA (cerebral vascular accident) left sided defecits Past Surgical History Surgical History S/P rotator cuff repair Social History Caffeine Amount: 1-2/Day Current Type of Alcohol: Beer Current Alcohol Amount: Socially/Occasionally Smoking Status: Heavy tobacco smoker Type of Tobacco: Cigarettes Smoking Amount: 1 pack per day Family History Other No pertinent family history Review of Systems Constitutional: denies Fever or Chills Respiratory: denies Cough or Dyspnea Cardiovascular: denies Chest Pain or Palpitations Gastrointestinal: denies Nausea or Vomiting Physical Exam Last Vital Signs Temp Pulse Resp BP Pulse Ox O2 Flow RateFiO2 98.6 F 109 H 24 H 119/98 H 97 5 40 05/30/25 14:05/30/25 14:05/30/25 14:05/30/25 14:05/30/25 14:05/21/25 07:05/16/25 16: 36 36 36 36 36 53 30 Height (Ft AND In) 5 ft 7 in Admitting (IV Pump) Weight 61.4 kg Actual Weight (Kg) 69.6 kg General Appearance: Alert, Resting Comfortably and Cooperative Abdomen: BM (incontinent ) Extremities: No Activity as expected Neurologic: A AND O x2 and Muscle weakness; No Normal Movement AND Sensation Bilat Lower Extremities Psychological: Mood AND Affect Normal (Use of foul language frequently. ) Intergluteal Cleft AND Buttocks with skin breakdown, irritation, AND erythema. Laboratory Last Values WBC 12.1 th/cmm (4.4-10.5) H 05/29/25 04:49 RBC 3.02 mil/cmm (4.50-6.00) L 05/29/25 04:49 Hgb 10.1 gm/dL (13.5-16.5) L 05/29/25 04:49 Hct 29.2 % (40.0-49.0) L 05/29/25 04:49 MCV 96.8 CU DEIDRA (80-97) 05/29/25 04:49 MCH 33.6 PG (27.5-33.0) H 05/29/25 04:49 MCHC 34.7 gm/dL (33.0-36.0) 05/29/25 04:49 RDW 17.7 % (12.0-16.0) H 05/29/25 04:49 Plt Count 470 th/cmm (150-400) H 05/29/25 04:49 Neut % (Auto) 70.7 % (40-70) H 05/22/25 05:28 Lymph % (Auto) 15.3 % (15-45) 05/22/25 05:28 Mcdonough % (Auto) 11.7 % (2-10) H 05/22/25 05:28 Eos % (Auto) 1.6 % (0-6) 05/22/25 05:28 Baso % (Auto) 0.7 % (0-2) 05/22/25 05:28 Nucleat RBC Rel Count 0.0 /100 WBC (<1) 05/22/25 05:28 Absolute Neuts (auto) 9700 /cmm (8258-0206) H 05/22/25 05:28 Absolute Lymphs (auto) 2100 /cmm (9103-9031) 05/22/25 05:28 Absolute Monos (auto) 1600 /cmm (0-800) H 05/22/25 05:28 Absolute Eos (auto) 200 /cmm (0-500) 05/22/25 05:28 Absolute Basos (auto) 100 /cmm (0-200) 05/22/25 05:28 Neutrophils % (Manual) 90.0 % (40-70) H 05/14/25 02:40 Band Neutrophils % 5.0 % (2-6) 05/14/25 02:40 Lymphocytes % (Manual) 1.0 % (15-45) L 05/14/25 02:40 Monocytes % (Manual) 3.0 % (2-10) 05/14/25 02:40 Metamyelocytes % 1.0 % 05/14/25 02:40 Abs Neuts (Manual) 28237 /cmm (3302-4014) H 05/14/25 02:40 Abs Lymphs (Manual) 364 /cmm (5698-8362) L 05/14/25 02:40 Abs Monocytes (Manual) 1092 /cmm (0-800) H 05/14/25 02:40 Absolute Eos (Manual) 0 /cmm (0-500) 05/14/25 02:40 Abs Basophils (Manual) 0 /cmm (0-200) 05/14/25 02:40 Nucleated RBCs # 1 /100 WBC 05/13/25 04:55 Anisocytosis 1+ 05/22/25 05:28 RBC Morph Comment Test not indicated 05/14/25 02:40 PT 11.6 Sec (9.6-13.3) 05/11/25 15:14 INR 0.98 (0.9-1.2) 05/11/25 15:14 Sample Site Vein 05/16/25 10:55 Collected by Daryl Gruber 05/14/25 12:54 ABG pH 7.42 (7.35-7.45) 05/14/25 12:54 ABG pCO2 at Pt Temp 25 mmHg (35-45) L 05/14/25 12:54 ABG pO2 at Pt Temp 82 mmHg (80-105) 05/14/25 12:54 ABG HCO3 16.1 mmol/L (22-26) L 05/14/25 12:54 ABG O2 Saturation 97 % (95-98) 05/14/25 12:54 ABG Base Excess -8 mmol/L (-2-3) L 05/14/25 12:54 VBG pH 7.43 (7.31-7.41) H 05/16/25 10:55 VBG pCO2 at Pat Temp 27 mmHg (41-51) L 05/16/25 10:55 VBG pO2 at Pat Temp 35 mmHg (80-105) L 05/16/25 10:55 VBG HCO3 17.7 mmol/L (23.0-28.0) L 05/16/25 10:55 VBG O2 Saturation 71 % (95-98) L 05/16/25 10:55 VBG Base Excess -7 mmol/L (-2-3) L 05/16/25 10:55 Respiration Rate 16 05/16/25 10:55 Patient Equipment Vent 05/16/25 10:55 Vent Mode AC 05/16/25 10:55 FiO2 0.30 05/16/25 10:55 FiO2 % 0.40 05/14/25 12:54 Tidal Volume 500 05/16/25 10:55 PEEP 5.0 05/16/25 10:55 Blood Gas Notified By Yes 05/16/25 10:55 Sodium 138 mEq/L (135-145) 05/29/25 04:49 Potassium 4.1 mEq/L (3.6-5.0) 05/29/25 04:49 Chloride 107 mEq/L (101-111) 05/29/25 04:49 Carbon Dioxide 22 mEq/L (21-32) 05/29/25 04:49 Anion Gap 9 (4-12) 05/29/25 04:49 BUN 20 mg/dL (7-20) D 05/29/25 04:49 Creatinine 0.76 mg/dL (0.60-1.30) 05/29/25 04:49 GFR Calculation > 60 (60-) 05/29/25 04:49 POC Whole Bld Glucose 124 mg/dl (70-110) H 05/17/25 06:00 Random Glucose 102 mg/dL (70-110) 05/29/25 04:49 Fasting Glucose 139 mg/dL (70-110) H 05/14/25 21:42 Hemoglobin A1c 5.0 % (4.4-6.4) 05/11/25 20:10 Estim Average Glucose 97 mg/dL 05/11/25 20:10 Lactic Acid 1.5 mmol/L (0.5-2.0) 05/17/25 16:31 Calcium 9.70 mg/dL (8.8-10.5) 05/29/25 04:49 Ionized Calcium 1.17 mmol/L (1.15-1.29) 05/17/25 04:35 Phosphorus 6.1 mg/dL (2.4-4.7) H 05/29/25 04:49 Magnesium 1.9 mg/dL (1.8-2.5) 05/30/25 06:16 Total Bilirubin 0.8 mg/dL (0.2-1.0) 05/24/25 06:35 Direct Bilirubin 0.2 mg/dL (0.1-0.2) 05/24/25 06:35 AST 27 IU/L (15-41) 05/24/25 06:35 ALT 35 IU/L (10-40) 05/24/25 06:35 Alkaline Phosphatase 203 IU/L (41-137) H 05/24/25 06:35 Troponin I High Sens 6 ng/L (0-20) 05/11/25 15:14 Total Protein 5.4 g/dL (6.2-8.0) L 05/24/25 06:35 Albumin 3.6 g/dL (3.5-5.0) 05/29/25 04:49 Albumin/Globulin Ratio 1.3 (1.5-2.5) L 05/17/25 04:35 Prealbumin 15.0 mg/dL (16.0-38.0) L 05/13/25 04:54 Triglycerides 115 mg/dL (<150) 05/15/25 01:55 Cholesterol 238 mg/dL (<200) H 05/11/25 20:10 LDL Cholesterol Direct 171 mg/dL (-100) H 05/11/25 20:10 VLDL Cholesterol, Calc 32 mg/dL (<39) 05/11/25 20:10 HDL Cholesterol 34 mg/dL (40-) L 05/11/25 20:10 LDL/HDL Ratio 5.0 (<3.1) H 05/11/25 20:10 Cholesterol/HDL Ratio 7.0 (4.0-5.0) H 05/11/25 20:10 Amylase 17 U/L (30-100) L 05/13/25 04:54 Lipase 40 IU/L (21-51) 05/13/25 04:54 Thiamine 359 nmol/L H 05/24/25 16:58 Procalcitonin 0.25 ng/mL (-0.50) 05/13/25 04:54 TSH 1.879 mcIU/mL (0.490-4.670) 05/11/25 20:10 Prolactin 9.02 ng/mL (2.64-13.13) 05/17/25 16:31 Urine Color Yellow 05/13/25 09:16 Urine Appearance Cloudy 05/13/25 09:16 Urine pH 7.0 (5.0-8.0) 05/13/25 09:16 Ur Specific [place] 1.021 (1.000-1.035) 05/13/25 09:16 Urine Protein 20 mg/dl (Negative) 05/13/25 09:16 Urine Glucose (UA) 30 mg/dL (Negative) 05/13/25 09:16 Urine Ketones Negative (Negative) 05/13/25 09:16 Urine Blood >1.0 mg/dl (Negative) 05/13/25 09:16 Urine Nitrite Negative (Negative) 05/13/25 09:16 Urine Bilirubin 2 mg/dL (Negative) 05/13/25 09:16 Urine Urobilinogen >10.0 mg/dl (0.2-1.0) 05/13/25 09:16 Ur Leukocyte Esterase 75 Pati/uL (Negative) 05/13/25 09:16 U Hyaline Cast (Auto) 3-5 /LPF H 05/13/25 09:16 Urine RBC >100 /HPF H 05/13/25 09:16 Ur WBC Total Counted 21-50 /HPF H 05/13/25 09:16 Ur Squamous Epith Cells None /HPF 05/13/25 09:16 Ur Renal Epithelial Cell 0-5 /HPF 05/13/25 09:16 Urine Mucus (Auto) Present 05/13/25 09:16 Ur Culture Indicated? Yes 05/13/25 09:16 Fecal Screen VRE (PCR) Negative (Negative) 05/14/25 04:06 Urine Opiates Screen Negative (Negative) 05/13/25 09:16 Ur Oxycodone Screen Negative (Negative) 05/13/25 09:16 Ur Barbiturates Screen Negative (Negative) 05/13/25 09:16 Ur Phencyclidine Scrn Negative (Negative) 05/13/25 09:16 Ur Amphetamines Screen Negative (Negative) 05/13/25 09:16 U Benzodiazepines Scrn Negative (Negative) 05/13/25 09:16 Urine Cocaine Screen Negative (Negative) 05/13/25 09:16 U Cannabinoids Screen Positive (Negative) H 05/13/25 09:16 Drug Screen Comment 05/13/25 09:16 Alcohol, Quantitative < 0.010 gm/dL 05/11/25 15:14 Specimen Source Nasopharyngeal Swab 05/12/25 20:50 Adenovirus (PCR) Not Detected 05/12/25 20:50 B. pertussis DNA (PCR) Not Detected 05/12/25 20:50 B.parapertussis DNA PCR Not Detected 05/12/25 20:50 C. pneumoniae DNA (PCR) Not Detected 05/12/25 20:50 Coronavirus OC43 (PCR) Not Detected 05/12/25 20:50 Coronavirus HKU1 (PCR) Not Detected 05/12/25 20:50 Coronavirus 229E (PCR) Not Detected 05/12/25 20:50 Coronavirus NL63 (PCR) Not Detected 05/12/25 20:50 Human Metapneumovir PCR Not Detected 05/12/25 20:50 Influenza A (RT-PCR) Not Detected 05/12/25 20:50 Influenza B (RT-PCR) Not Detected 05/12/25 20:50 M. pneumoniae (PCR) Not Detected 05/12/25 20:50 Parainfluenza 1 (PCR) Not Detected 05/12/25 20:50 Parainfluenza 2 (PCR) Not Detected 05/12/25 20:50 Parainfluenza 3 (PCR) Not Detected 05/12/25 20:50 Parainfluenza 4 (PCR) Not Detected 05/12/25 20:50 RSV (PCR) Not Detected 05/12/25 20:50 Entero/Rhino (PCR) Not Detected 05/12/25 20:50 SARS-CoV-2 (PCR) Not Detected 05/12/25 20:50 Slides for Path Review * 05/13/25 04:55 Assessment and Plan (1) Irritant contact dermatitis due friction or contact with other specified body fluids: (2) Skin irritation: (3) Skin breakdown: Plan Facility skin care protocol. Pressure reduction mattress. Incontinence care Keep skin clean AND dry. Apply Zinc Oxide Paste to Intergluteal Cleft / Left Buttocks TID and as needed after incontinent episodes. Upon Discharge If SNF does not have a wound care provider, may schedule appointment in 10- 14days. cc: Tay Camara MD; Naldo Paez MD; Johnna DANIEL Dictated by: Johnna Massey APRN, CNP on 05/30/25 1515 Entered by: FREDY Zayas on 05/30/25 1539 Report Signed by: Johnna DANIEL on 05/30/25 1932 <<Signature on File>> < 1441 <<Signature on File>> <Electronically signed by Naldo Paez MD> PROGRESS NOTE - HOSPITALIST Observed: 1:52 PM Status: F Source: [facility] Medical Records Patient: DIONNA CONCEPCION [address] : 1975 [place], [place] [address] Location: [phone] Unit #: [id number] Progress Note - Hospitalist Aimee Chester MD Service Dt/Tm: 05/31/25 1009 Assessment/Plan Assessment/Plan (1) Wernickes encephalopathy: Status: Acute Plan: Stable Hx alcohol abuse and previous stroke with residual left-sided weakness (right MCA stroke in 01/28) presented with generalized weakness and confusion. With metabolic encephalopathy likely secondary to electrolyte disturbance and sepsis CT head-no acute infarct. MRI is suspicious for Warnicke's encephalopathy. Neurology consult appreciated. Continue IV thiamine, multivitamin and folic acid. Continue aspirin, high-dose of Lipitor (monitoring LFT). Psychiatry consult EEG-no epileptiform waves. Repeated MRI on 05/13 report reviewed, chronic changes. Area of encephalomalacia consistent with remote infarction. There is subtle periaqueductal ward enhancement. There has been improvement since prior exam, however pattern can be seen in the setting of thiamine deficiency/Wernicke''s Korsakoff in the correct clinical setting. Plan: Currently on ASA, statin, beta-jolie, thiamine, folic acid On antipsychotic medication [clonazepam and Seroquel] Pending SNF placement. (2) CVA (cerebral vascular accident): Status: Chronic Qualifiers: CVA mechanism: unspecified Qualified Code(s): I63.9 - Cerebral infarction, unspecified Plan: Old infarct in MCA territory (3) Alcoholism: Status: Chronic Plan: Stable Continue thiamine and folic acid (4) Septic shock: Status: Resolved Plan: Resolved (5) Hypertension: Status: Acute Qualifiers: Hypertension type: primary hypertension Qualified Code(s): I10 - Essential (primary) hypertension Plan: Well-controlled Continue low-dose antihypertensive medication. (6) Epistaxis: Status: Acute Plan: Resolved Continue moisturizing with normal saline gel 3 times daily and as needed (7) GI bleed: Status: Ruled-out Qualifiers: GI bleed type/associated pathology: unspecified gastrointestinal hemorrhage type Qualified Code(s): K92.2 - Gastrointestinal hemorrhage, unspecified Plan: Initial concern for GI bleed GI was consulted???status post ERCP--No sign of active bleeding Hemoglobin is stable On pantoprazole 40 mg daily. Plan 05/11/2025: Admission:??? a 49-year-old male with a history of alcohol abuse and previous CVA, was admitted to [facility] with complaints of excessive fatigue and generalized weakness. Initial CT head suggested a subacute right MCA infarct. Labs showed hypokalemia and elevated troponin. He was started on aspirin and electrolyte replacement. Neurology was consulted, and an MRI was ordered. 05/12/2025: Neurology Evaluation:???MRI confirmed old cortical gyral ischemic infarcts. Neurology recommended continuing aspirin and statin therapy. Echocardiography showed normal LV function with no PFO. * Infectious Disease Consultation:???Patient developed leukocytosis, and sepsis protocol was initiated. Blood cultures were obtained, and Rocephin was started switched to Zosyn 05/13/2025: WBC count increased significantly, and the patient developed fever and tachycardia. ID switched to Unasyn. CT abdomen/pelvis suggested diverticulitis and chronic pancreatitis. * Critical Care Consultation:???Due to worsening clinical status, including tachypnea and altered mental status, the patient was transferred to the ICU. For possible alcohol withdrawal , DTs, Warnicke encephalopathy 05/14/2025:???The patient was intubated for airway protection due to altered mental status and suspected aspiration. MRCP showed choledocholithiasis, and ERCP was planned. * General surgery was consulted for small bowel obstruction, and an NG tube was placed. 05/15/2025: ERCP Procedure:???Successful sphincterotomy and stone extraction were performed. The patient remained in the ICU for continued monitoring and management of sepsis and respiratory failure. 05/16/2025: he patient was extubated and showed signs of clinical improvement. He remained on antibiotics and supportive care. 05/17/2025:The patient was stable, with resolved sepsis and improved hemodynamics. He was transferred out of the ICU. 05/20/2025: Continued management of Wernicke's encephalopathy with thiamine and multivitamins. The patient showed gradual improvement in mental status. 05/22/2025: Psychiatry Consultation:???Evaluated for encephalopathy and alcohol withdrawal delirium. Recommendations included continuing thiamine and outpatient psychiatric follow-up. * Palliative Care Consultation:???Discussed goals of care with family. The patient was oriented to self and partially to the situation. Family expressed interest in rehabilitation or long-term care placement. Continue to be full code 05/23/2025: Repeated MRI:???A follow-up MRI of the brain was performed, showing diffuse involutional changes and chronic microvascular deep white matter disease. There was an area of encephalomalacia and gliosis along the right inferior frontal gyrus, consistent with remote infarct. Subtle FLAIR and T2 hyperintensity were noted along the ventricular surface of the 3rd ventricle, periaqueductal ward, and mamillary bodies, suggestive of thiamine deficiency/Wernicke's Korsakoff syndrome. Improvement was noted since the prior exam. Aspirin and Plavix held due to nausea 05/24/2025: Patient was lethargic, aggressive and refused examination in the morning however mentation improved after physical therapist worked with the patient. 05/25 Awake and alert. Engaging in conversation. AO x 2. Episode of pneumonia labs. He thought he is in different hospital ;however he remembered when i told him. He is aware of month and year 05/26 awake and alert. Remember our discussion yesterday. Can resume aspirin today as per neurology recommendation. Diastolic blood pressure elevated we can resume amlodipine 2.5 mg daily and monitor vitals 05/27. Awake and alert. Aspirin restarted, no more discussed. Outpatient follow- up recommended by neurology. Blood pressure better controlled 05/28 doing well. Dry skin noted on the nostrils. Saline gel ordered 3 times daily. Continue aspirin 05/29 doing well. Waiting for SNF placement. 05/30 overall doing well, still waiting for SNF placement. 05/31 doing well, tolerating oral diet and doing physical therapy. Waiting for SNF placement. Current Code Status AND Diet: 05/11/25 18:30 Code Status Routine Resuscitation Status: Full Code Code Status Order Placed: Code Status Ordered 05/11/25 at 1830 05/17/25 10:31 [facility] Diet Texture: Regular Fluid Restrictions?: No Subjective Subjective: Primary Care Provider: Tay Camara MD Chief Complaint: RT MCA INFARCT/LT SIDED WEAKNESS Patient was seen and examined, no acute distress, resting comfortably, waiting for SNF placement. Patient Status AND Estimated DC Date Patient Registration Status: Inpatient Objective Physical Exam: GEN: No acute distress, sitting comfortably, tolerating oral diet HEENT: No lymphadenopathy, neck is supple, left gaze palsy, dry skin on the nose Chest: Bilateral air entry, no wheezing or rhonchi CVS: S1 and S2, sinus tachycardia, no gallop or murmur Abdomen: Soft, normal bowel sound, no organomegaly INDUCTION MACHINE SETTER: Chronic left-sided weakness with history of CVA. Extremities: No edema bilateral lower extremities. Psychologically: Normal mood and behavior. Constitutional: Last Vital Signs Temp Pulse Resp BP Pulse Ox O2 Flow RateFiO2 98.2 F 98 18 123/85 98 5 0 05/31/25 08:05/31/25 08:05/31/25 08:05/31/25 08:05/31/25 08:05/21/25 07:05/31/25 08: 03 03 03 03 03 53 03 Intake and Output Intake Total 874 1472 Output Total 850 550 Balance 24 922 Admitting (IV Pump) Weight 61.4 kg Actual Weight (Kg) 70.9 kg Data Labs: Magnesium 1.9 Sodium 137 Potassium 3.7 Chloride 106 Carbon Dioxide 24 Anion Gap 7 BUN 20 Creatinine 0.75 Calcium 9.30 The last 24 hours of labs have been reviewed. Imaging: I have reviewed the diagnostic images in the EMR. Microbiology: Microbiology 05/28/25 01:00 Urine, clean catch Urine Culture - Final No growth after 2 days. Medications and Comanagement: Medications reviewed separately. Pressure Injury/Pressure Area of Concern Sacrum: Site identified as: Area of Concern Provider Reviewed: Assessed wound today ??? agree with findings as above Ischium (Buttocks) Left Open: Provider Reviewed: Assessed wound today ??? agree with findings as above Ischium (Buttocks): Provider Reviewed: Assessed wound today ??? agree with findings as above Entered by: Aimee Chester MD on 05/31/25 1009 Report Signed by: Aimee Chester MD on 05/31/25 1352 <<Signature on File>> <Electronically signed by Aimee Chester MD> Report Signed by: on BASIC METABOLIC,NON-FASTING Collected: 05/31/2025 5:29 AM Status: F Source: [facility] TYPE CODE TESTS RESULT OUT OF RANGE REFERENCE UNITS LAB L400.1400 Sodium 137 Normal 135-145 mEq/L LAB L400.1500 Potassium 3.7 Normal 3.6-5.0 mEq/L LAB L400.1600 Chloride 106 Normal 101-111 mEq/L LAB L400.1700 Carbon Dioxide 24 Normal 21-32 mEq/L LAB L400.1800 Anion Gap 7 Normal 4-12 LAB L400.1820 Glucose 90 Normal 70-110 mg/dL Result Comment: *This refere nce range applies to fasting specimens only. LAB L400.1835 BUN 20 Normal 7-20 mg/dL LAB L400.1840 Creatinine 0.75 Normal 0.60-1.30 mg/dL LAB L400.1845 GFR Calculation > 60 Normal Result Comment: Chronic Kidn ey Disease stages by NKDF Stage eGFR I >90 II 60-89 III 30-59 IV 15-29 V <15 or dialysis Note: Information regarding the eGFR equation used can be found at https://www.kidney.org/tagq-ghzmo-besbmrzk. AGE(years) AVERAGE GFR 50-59 93 ml/min/1.73 square meters Note:This result is normalized to 1.73 square meter body surface area. Height and weight are not factored. LAB L400.2100 Calcium 9.30 Normal 8.8-10.5 mg/dL Performed By: #### L400.0152 , L400.5100 #### Main Laboratory ([facility]) [address] [place] [address] Regan Sahni MD MAGNESIUM Collected: 5:29 AM Status: F Source: [facility] TYPE CODE TESTS RESULT OUT OF RANGE REFERENCE UNITS LAB L400.5100 Magnesium 1.9 Normal 1.8-2.5 mg/dL Performed By: #### L400.0152 , L400.5100 #### Main Laboratory ([facility]) [address] [place] [address] Regan Sahni MD CASE MANAGEMENT DAILY NOTE Observed: 4:05 PM Status: F Source: [facility] Case Management Patient: DIONNA CONCEPCION [address] : 1975 [place], [place] [address] Location: [phone] [id number] Management Daily Note Yeimy Metcalf RN Service Date: 05/30/25 Case Mgmt Daily Note - Plan of Care Wood Drilling Machine Operator Agrees with Attending and Consult Plan: Yes - Patient Preferences AND Goals What is the patient's preference?: New SNF Recommended acute discharge goals: New SNF - Hospital Stay Days Day 1 Comment: 05/11 - Spoke with patient at bedside. Patient has Pavan Huynh. PCP is Pam Camara. director of player personnel is his father, Dionna. [facility] [place]. Denies services, DME. He is independent of ADLS and drives. He lives with his brother and father in a 1 story home with no steps to enter. Denies LW/DPOA. Per primary nurse, Jenni, she states that EMS reported that family stated patient has been depressed and having trouble with his left side weakness from his stroke 2 months ago. Also states he has been falling at home. Wood Drilling Machine Operator: Ana Snyder, RN Day 2 Comment: 05/12 - Spoke with pt. MRI completed and pending results. Neuro following. PT/OT ordered and recommended IPR. Rehab consulted to review case and waiting on response. Wood Drilling Machine Operator: Shelbi Jackson Day 3 Comment: 05/13 Dispo pending medical course. IPR following, c/s placed 05/12. MRI B (-) for acute CVA. WBC 42.9. Lactic 3.7. BC/UA/Sputum Cx. IV Rocephin/IVF. PT/OT. Wood Drilling Machine Operator: Jimena Carcamo RN Day Comment: 05/14: Patient transferred to ICU overnight. Intubated. PEEP 5. FiO2 40%. Propofol. Versed. Levo. Vaso. IVP Solu Cortef QID. Seizure precautions. WBC 36.5. 7/8 blood cultures pending. IV unasyn Q6. ID following. MRCP today. Surgery following. SW d/t alcohol abuse. Needs TBD pending medical medical course. Wood Drilling Machine Operator: Sonja Mcmahan Day Comment: 05/15: Patient remains intubated. PEEP 5. FiO2 30%. Versed. Levo. IVP Solu Cortef QID. IV ampicillin Q6. WBC 25.3. 7/9 sputum positive. 8 blood cultures negative to date. GI following, ERCP today. Surgery following. ID following. SW following d/t alcohol abuse. Needs TBD pending medical course. Wood Drilling Machine Operator: Sonja Mcmahan Day 6 Comment: 05/16: Patient remains intubated. PEEP 5. FiO2 30%. IVP Solu Cortef QID. LR @ 50. ID following. WBC 9.5. IV ampicillin Q6. Hgb 8.8. Needs TBD pending medical course and therapy recs post extubation. Wood Drilling Machine Operator: Sonja Mcmahan Day 9 Comment: 05/19 Most recent CIWA 5. Daughter wanting SNF placement per previous CM. PTOT most recent recs IPR. Per nursing documentation, pt not alert and oriented. CM and CHECKER LOADER will speak with daugther further about DC planning. Pt will need a precert if SNF is planned. Currently on Unasyn per ID,Augmentin when stable or at the time of discharge. *Per [facility], they are following to see if pt is appropriate for IPR placement at DC. Message left for Daughter Maria Fernanda per primary nurse request. *No return call from daughter to CM. Per nursing staff daughter called the floor with concerns about DC planning. Email sent to daughter to discuss DC planning per daughters request. *email returned from daughter with SNF choices, [facility] in [place], [place]. [facility] [place], [place]. [facility]- in [place], [place]. *[employer] attempting to get information from daughter/pt brother for intermodal owner operator truck driver PAUL screening. Wood Drilling Machine Operator: Yeimy Metcalf, RN Comment: 05/20 Email this AM from daughter states she is interested in SNF facilities closer to [place] for her/siser and pt dad/brother so they can all visit pt. Daughter is requesting a family meeting for this wednesday 05/23 at 11am to discuss placement options. Pt will require precert once a facility is obtained. Wood Drilling Machine Operator: Yeimy Metcalf, RN Comment: 05/21 Psych consult placed per attending. EEG ordered per neurology, possible LP per neurology notes. ID following, Unasyn active until 05/26. Telesitter present in room. Pt remains confused. [employer] attempting tank terminal gauger PAUL krunal with family. SNF choices given by daughter to CM and CHECKER LOADER in [place] and [place]. CHECKER LOADER working on placement. Awaiting psych consult to review further placement barriers. Wood Drilling Machine Operator: Yeimy Metcalf, RN Comment: 05/22 KAYLENE is working with patients daughter for placement note reads dc planning with pt daughter through email. Pt daughter planning to be at [facility] tomorrow for family meeting. Pt daughter would like to continue looking for SNF at [facility]. Pt evaluated by telepsych and recs for outpt services. KAYLENE faxed clinical referral to [facility] in [place] for review. Wood Drilling Machine Operator: Beverly Mckeon, RN Day Comment: 05/23 Family meeting at the bedside with attending, Palliative Care PROGRAM TECHNICIAN, CM and CHECKER LOADER. Medical questions answered per attending. CM and CHECKER LOADER spoke about DC planning/placement options/barriers. CHECKER LOADER sending clinicals to [facility] and [facility] to check on placement avalibility. Per [facility], PAUL screen complete and pending number provided to CHECKER LOADER. CM and CHECKER LOADER attempting tank terminal gauger placement. Family requesting to speak with community service manager/administration about concerns with pt care/complaints. CM spoke with [employer] x2 to relay information. Email sent to community service manager as she is off to follow up with concerns once back in office. Wood Drilling Machine Operator: Yeimy Metcalf, RN Comment: 05/26 Telesitter removed by primary RN over the weekend. Telesitter remains out of the room at this time. Per CHECKER LOADER, still sending referrals and waiting on accepting facility. Pt also PAUL pending for tank terminal gauger placement. Wood Drilling Machine Operator: Yeimy Metcalf, RN Comment: 05/27 Per CHECKER LOADER, facilities requested by daughter in [place] are continuing to review. Precert to start once accepted. Wood Drilling Machine Operator: Yeimy Metcalf, RN Comment: 05/28 Per CHECKER LOADER, facilities still reviewing pt. Per CHECKER LOADER, [place] [facility] agreeable to take pt but daughter stating that facility is too far away. Precert to start once a facility accepts. Wood Drilling Machine Operator: Yeimy Metcalf, RN Comment: 05/29/25 Pre-cert pending to [facility] in [place]. Wood Drilling Machine Operator: Beverly Mckeon, RN Comment: 05/30 Precert remains PENDING for [facility]. Multiple facilites have been exhausted by CHECKER LOADER and all facilities picked by daughter have no availability, don't accept PAUL pending, or will not accept due to pt behaviors/history. Daughter previously agreeable to a middle point for pt between [place] and [place] so other family members could visit patient. Pt has been medically cleared for DC and DC planning needing to move forward with [facility] per CM Director Shireen. Daughter updated via email(daughters preferred contact method) that DC planning needing to move forward and we are moving forward with the facility that has accepted him and has a mcfp bed available. Daughter updated via email that she can move pt to a closer facility from [facility] if she desires. Wood Drilling Machine Operator: Yeimy Metcalf, RN - Respiratory Equipment Does the patient use/have any of these devices at home?: N/A - Community Services Substance Use Screening: Initiated - * L * Length of Stay LOS (Including day of Admission and Discharge): 19 LOS Score: 7 - * A * Acuity on Admission ER Provider if admitted from ER (view): RGMAXO Was patient admitted to hospital via Emergency Dept? Score: 3 - * C * Comorbidities Select All Conditions that Apply: Cerebral Disease (Any previous stroke or transient ischemic attack) Comorbidities Total Score: 1 - * E * Emergency Department Visits # of ER visits,6mos prior to admit,excl this admits ER visit: 0 Enter this number or 4 (whichever is smaller): 0 - LACE SCORE LACE Score: 11 - ANTICIPATED DISCHARGE Anticipated Discharge Date: 05/31/25 Entered by: Yeimy Metcalf RN on 05/30/25 0934 Report Signed by: Yeimy Metcalf RN on 05/30/25 1605 <<Signature on File>> <Electronically signed by Yeimy Metcalf RN> Co-Signed by: on SOCIAL WORK DAILY NOTE Observed: 025 4:02 PM Status: F Source: [facility] National Recruiter Patient: DIONNA CONCEPCION [address] : 1975 [place], [place] [address] Location: [phone] Unit #: [id number] Social Work Daily Note Marky Olivo Service Date: 05/30/25 Daily Note - * Psychosocial Assessment * I have reviewed nursing and case management psychosocial information.: Yes - * Hospital Stay Days * Day 1 Note: 05/14/2025: c/s for Substance Abuse Screening. Pavan Huynh. UZIEL. +tox for cannabinoids on admission. Hx of alcohol abuse. Enecphalopathy. Pt intubated overnight. National Recruiter to follow peripherally to discuss with pt when medically appropriate. Top Case Assembler: Yeimy Shah, BEST WORKER, AUTOMOBILE RENTAL AGENT Day 2 Note: 05/15/2025: KAYLENE following for Substance Abuse Screening. Pavan Huynh. UZIEL. +tox for cannabinoids on admission. Hx of alcohol abuse- Wernickes Enecphalopathy. Pt remains intubated this date. KAYLENE updated by nursing staff that the pt's family is requesting pt d/c to a SNF in the [place], [place] area when medically ready for d/c. KAYLENE called and discussed this with pt's daughter, Maria Fernanda. Maria Fernanda reports most of the family lives between [place] and [place], so [place] would be a good middle location. KAYLENE briefly explained that pt will need to be able to participate with therapy in order for insurance to approve a SNF OR pt will need to have funds to private pay OR pt will need to have Medicaid. Maria Fernanda would like to see how the pt progresses to determine if it will be a short term or mcfp placement. Maria Fernanda reports she has not talked with her father in 3 years. Maria Fernanda is unaware of pt's finances and does not know of any POA paperwork that the pt has ever completed. Maria Fernanda stated that the pt is not legally to anyone. Maria Fernanda reports the pt has three living children: Maria Fernanda Glynn PH: [phone], Beverly Jamey PH: [phone] AND Dionna Jamey PH: [phone]. Maria Fernanda reports Dionna will likely not want to participate in any decision making for the pt. KAYLENE explained that in [place] if there is no POA/Guardian and if pt is not legally , that any decisions will need to be a consensus between all living children. Maria Fernanda voiced understanding. Maria Fernanda would like to review a list of SNFs in [place], [place] to begin reviewing. Maria Fernanda reports her address is [address] [place] [id number]. A list of SNFs within 30 miles of Maria Fernanda's address with quality scores emailed to Maria Fernanda at [email or web address]. KAYLENE requested Maria Fernanda to provide a list of 5-10 choices as pt may be a difficult placement d/t history of alcohol abuse and insurance. D/c planning needs pending medical course. SW to continue following. Top Case Assembler: Yeimy Shah, BEST WORKER, AUTOMOBILE RENTAL AGENT Day 3 Note: 05/16/2025: SW following for Substance Abuse Screening. Pavan Huynh. YULIWA. +tox for cannabinoids on admission. Hx of alcohol abuse- Wernickes Enecphalopathy. Pt remains intubated this date. D/c planning needs pending medical course. SW to continue following. Top Case Assembler: Yeimy Shah, BEST WORKER, AUTOMOBILE RENTAL AGENT Day 6 Note: 05-19-25 SW following for SNF/dc planning. JIMBO Crooks emailed pt daughter list of SNF options in [place]. DENISSE Crooks sent referral to [facility] for pt to be screened for PAUL benefit. Pt daughter gave choices of SNFs. Kaylene spoke with admissions of [facility] in [place] and faxed clinical referral to facility. Top Case Assembler: Marky Olivo 7 Note: 05-21-25 KAYLENE following for dc planning. DC plan curently pending. SNF referral sent to [facility] in [place] pt first choice and facility unable to accept. Pt daughter possibly wanting SNF in between [place] and [place]. Psych consult ordered. SW will continue to follow. Top Case Assembler: Marky Olivo 8 Note: 05-22-25 KAYLENE communicated dc planning with pt daughter through email. Pt daughter planning to be at [facility] tomorrow for family meeting. Pt daughter would like to continue looking fo [facility]SNF at [facility]. Pt evaluated by telepsych and recs for outpt services. KAYLENE faxed clinical referral to [facility] in [place] for review. Top Case Assembler: Marky Olivo 9 Note: 05-23-25 KAYLENE and JIMBO spoke with pt and family at bedside along with pt medical provider. KAYLENE and JIMBO discussed LT care options at [facility]. Pt family continues to be agreeable to SNF. Family is interested in SNF placement residential between [place] and [place]. No preferenc eof facility just something residential for all family. KAYLENE sent referral to [facility] in [place] waiting on facility to review. Clinical referral also faxed to [facility] in [place] for review. Per [facility] PAUL application was completed and submitted on 05-22. Top Case Assembler: Marky Olivo day 12 Note: 05-26-25 SW following for SNF placement. SW sent referrals to [facility] and [facility] in [place]. Per admissions at both facilities they have minimal LT beds available and will review pt referral. SW emailed pt daughter to update her of dc planning. SW continuing to follow. Top Case Assembler: Marky Olivo Note: 05-28-25 SW continuing to follow for SNF placement. Referrals being reviewed by [facility] and [facility]. Sw spoke with admissions at both facilities. Pt referrals denied by both facilities. [facility] in [facility] still able to accept. SW left voicemail for admissions at [facility]. SW sent an email to pt daughter Maria Fernanda to update her on dc plan and current status with facilities. Top Case Assembler: Marky Olivo Note: 05-29-25 Pt precert pending to admit at [facility]. Per admissions at facility he will need to follwo up with corporate to see if pt is able to admit PAUL pending. Top Case Assembler: Marky Olivo Note: 05-30-25 Pt precert is currently pending at [facility]. SW emailed pt daughter Maria Fernanda to update her of dc plan and pending status. Top Case Assembler: Marky Olivo - * Requested Intvs/Referrals * Top Case Assembler I Referrals: Substance Abuse Screening - Community Services/Interventions Substance Use Screening: Initiated - * HEALTHCARE DECISIONS * Living Will: Unknown Durable Power of Cable Splicer Helper for Health Care: No Directive, No SS Referral [facility] DNR Comfort Care: No Directive, No SS Referral [facility] DNR Comfort Care Arrest: No Directive, No SS Referral Entered by: Marky Olivo on 05/30/25 1513 Report Signed by: Marky Olivo on 05/30/25 1602 <<Signature on File>> <Electronically signed by Marky Olivo> Report Signed by: on PROGRESS NOTE - HOSPITALIST Observed: 3:19 PM Status: F Source: [facility] Medical Records Patient: DIONNA CONCEPCION [address] : 1975 [place], [place] [address] Location: [phone] [id number] - Hospitalist Aimee Chester MD Service Dt/Tm: 05/30/25 1037 Assessment/Plan Assessment/Plan (1) Wernickes encephalopathy: Status: Acute Plan: Stable Hx alcohol abuse and previous stroke with residual left-sided weakness (right MCA stroke in 01/28) presented with generalized weakness and confusion. With metabolic encephalopathy likely secondary to electrolyte disturbance and sepsis CT head-no acute infarct. MRI is suspicious for Warnicke's encephalopathy. Neurology consult appreciated. Continue IV thiamine, multivitamin and folic acid. Continue aspirin, high-dose of Lipitor (monitoring LFT). Psychiatry consult EEG-no epileptiform waves. Repeated MRI on 05/13 report reviewed, chronic changes. Area of encephalomalacia consistent with remote infarction. There is subtle periaqueductal ward enhancement. There has been improvement since prior exam, however pattern can be seen in the setting of thiamine deficiency/Wernicke''s Korsakoff in the correct clinical setting. Plan: Currently on ASA, statin, beta-jolie, thiamine, folic acid Resume antipsychotic medication [clonazepam and Seroquel] Waiting for SNF placement. (2) CVA (cerebral vascular accident): Status: Chronic Qualifiers: CVA mechanism: unspecified Qualified Code(s): I63.9 - Cerebral infarction, unspecified Plan: Old infarct in MCA territory (3) Alcoholism: Status: Chronic Plan: Stable Continue thiamine and folic acid (4) Septic shock: Status: Resolved Plan: Resolved (5) Hypertension: Status: Acute Qualifiers: Hypertension type: primary hypertension Qualified Code(s): I10 - Essential (primary) hypertension Plan: Well-controlled Continue low-dose antihypertensive medication. (6) Epistaxis: Status: Acute Plan: Resolved Continue moisturizing with normal saline gel 3 times daily and as needed (7) GI bleed: Status: Ruled-out Qualifiers: GI bleed type/associated pathology: unspecified gastrointestinal hemorrhage type Qualified Code(s): K92.2 - Gastrointestinal hemorrhage, unspecified Plan: Initial concern for GI bleed GI was consulted???status post ERCP No sign of active bleeding Hemoglobin is stable On pantoprazole 40 mg daily. Plan 05/11/2025: Admission:??? a 49-year-old male with a history of alcohol abuse and previous CVA, was admitted to [facility] with complaints of excessive fatigue and generalized weakness. Initial CT head suggested a subacute right MCA infarct. Labs showed hypokalemia and elevated troponin. He was started on aspirin and electrolyte replacement. Neurology was consulted, and an MRI was ordered. 05/12/2025: Neurology Evaluation:???MRI confirmed old cortical gyral ischemic infarcts. Neurology recommended continuing aspirin and statin therapy. Echocardiography showed normal LV function with no PFO. * Infectious Disease Consultation:???Patient developed leukocytosis, and sepsis protocol was initiated. Blood cultures were obtained, and Rocephin was started switched to Zosyn 05/13/2025: WBC count increased significantly, and the patient developed fever and tachycardia. ID switched to Unasyn. CT abdomen/pelvis suggested diverticulitis and chronic pancreatitis. * Critical Care Consultation:???Due to worsening clinical status, including tachypnea and altered mental status, the patient was transferred to the ICU. For possible alcohol withdrawal , DTs, Warnicke encephalopathy 05/14/2025:???The patient was intubated for airway protection due to altered mental status and suspected aspiration. MRCP showed choledocholithiasis, and ERCP was planned. * General surgery was consulted for small bowel obstruction, and an NG tube was placed. 05/15/2025: ERCP Procedure:???Successful sphincterotomy and stone extraction were performed. The patient remained in the ICU for continued monitoring and management of sepsis and respiratory failure. 05/16/2025: he patient was extubated and showed signs of clinical improvement. He remained on antibiotics and supportive care. 05/17/2025:The patient was stable, with resolved sepsis and improved hemodynamics. He was transferred out of the ICU. 05/20/2025: Continued management of Wernicke's encephalopathy with thiamine and multivitamins. The patient showed gradual improvement in mental status. 05/22/2025: Psychiatry Consultation:???Evaluated for encephalopathy and alcohol withdrawal delirium. Recommendations included continuing thiamine and outpatient psychiatric follow-up. * Palliative Care Consultation:???Discussed goals of care with family. The patient was oriented to self and partially to the situation. Family expressed interest in rehabilitation or long-term care placement. Continue to be full code 05/23/2025: Repeated MRI:???A follow-up MRI of the brain was performed, showing diffuse involutional changes and chronic microvascular deep white matter disease. There was an area of encephalomalacia and gliosis along the right inferior frontal gyrus, consistent with remote infarct. Subtle FLAIR and T2 hyperintensity were noted along the ventricular surface of the 3rd ventricle, periaqueductal ward, and mamillary bodies, suggestive of thiamine deficiency/Wernicke's Korsakoff syndrome. Improvement was noted since the prior exam. Aspirin and Plavix held due to nausea 05/24/2025: Patient was lethargic, aggressive and refused examination in the morning however mentation improved after physical therapist worked with the patient. 05/25 Awake and alert. Engaging in conversation. AO x 2. Episode of pneumonia labs. He thought he is in different hospital ;however he remembered when i told him. He is aware of month and year 05/26 awake and alert. Remember our discussion yesterday. Can resume aspirin today as per neurology recommendation. Diastolic blood pressure elevated we can resume amlodipine 2.5 mg daily and monitor vitals 05/27. Awake and alert. Aspirin restarted, no more discussed. Outpatient follow- up recommended by neurology. Blood pressure better controlled 05/28 doing well. Dry skin noted on the nostrils. Saline gel ordered 3 times daily. Continue aspirin 05/29 doing well. Waiting for SNF placement. 05/30 overall doing well, still waiting for SNF placement. Discharge planning to a halfway facility for continued recovery and rehabilitation. PreCert needed DVT prophylaxis: Lovenox Current Code Status AND Diet: 05/11/25 18:30 Code Status Routine Resuscitation Status: Full Code Code Status Order Placed: Code Status Ordered 05/11/25 at 1830 05/17/25 10:31 [facility] Diet Texture: Regular Fluid Restrictions?: No Subjective Subjective: Primary Care Provider: Tay Camara MD Chief Complaint: RT MCA INFARCT/LT SIDED WEAKNESS Patient was seen and examined, no acute distress, resting comfortably. Waiting for SNF placement. Patient Status AND Estimated DC Date Patient Registration Status: Inpatient Objective Physical Exam: GEN: No acute distress, lying comfortably HEENT: No lymphadenopathy, neck is supple, left gaze palsy, dry skin on the nose Chest: Bilateral air entry, no wheezing or rhonchi CVS: S1 and S2, sinus tachycardia, no gallop or murmur Abdomen: Soft, normal bowel sound, no organomegaly Extremities: No edema bilateral lower extremities., Weakness noted Constitutional: Last Vital Signs Temp Pulse Resp BP Pulse Ox O2 Flow RateFiO2 98.3 F 111 H 24 H 126/97 H 96 5 40 05/30/25 07:05/30/25 07:05/30/25 07:05/30/25 07:05/30/25 07:05/21/25 07:05/16/25 16: 27 27 27 27 27 53 30 Intake and Output Intake Total 550 874 Output Total 354 850 Balance 196 24 Admitting (IV Pump) Weight 61.4 kg Actual Weight (Kg) 69.6 kg Data Labs: Magnesium 1.9 The last 24 hours of labs have been reviewed. Imaging: I have reviewed the diagnostic images in the EMR. Microbiology: Microbiology 05/28/25 01:00 Urine, clean catch Urine Culture - Final No growth after 2 days. Medications and Comanagement: Medications reviewed separately. Pressure Injury/Pressure Area of Concern Sacrum: Site identified as: Area of Concern Provider Reviewed: Assessed wound today ??? agree with findings as above Entered by: Aimee Chester MD on 05/30/25 1037 Report Signed by: Aimee Chester MD on 05/30/25 1519 <<Signature on File>> <Electronically signed by Aimee Chester MD> Report Signed by: on MAGNESIUM Collected: 6:16 AM Status: F Source: [facility] TYPE CODE TESTS RESULT OUT OF RANGE REFERENCE UNITS LAB L400.5100 Magnesium 1.9 Normal 1.8-2.5 mg/dL Performed By: #### L400.5100 #### Main Laboratory ([facility]) [address] [place] [address] Regan Sahni MD CASE MANAGEMENT DAILY NOTE Observed: 4:15 PM Status: F Source: [facility] Case Management Patient: DIONNA CONCEPCION [address] : 1975 [place], [place] [address] Location: [phone] Unit #: [id number] Case Management Daily Note Beverly D Bourk RN Service Date: 05/29/25 Case Mgmt Daily Note - Plan of Care Wood Drilling Machine Operator Agrees with Attending and Consult Plan: Yes - Patient Preferences AND Goals What is the patient's preference?: New SNF Recommended acute discharge goals: New SNF - Hospital Stay Days Day 1 Comment: 05/11 - Spoke with patient at bedside. Patient has Pavan Jose Rauldwightr. PCP is Pam Camara. director of player personnel is his father, Dionna. [facility]acy [facility]. Denies services, DME. He is independent of ADLS and drives. He lives with his brother and father in a 1 story home with no steps to enter. Denies LW/DPOA. Per primary nurse, Jenni, she states that EMS reported that family stated patient has been depressed and having trouble with his left side weakness from his stroke 2 months ago. Also states he has been falling at home. Wood Drilling Machine Operator: Ana Snyder, RN Day 2 Comment: 05/12 - Spoke with pt. MRI completed and pending results. Neuro following. PT/OT ordered and recommended IPR. Rehab consulted to review case and waiting on response. Wood Drilling Machine Operator: Shelbi Jackson Day 3 Comment: 05/13 Dispo pending medical course. IPR following, c/s placed 05/12. MRI B (-) for acute CVA. WBC 42.9. Lactic 3.7. BC/UA/Sputum Cx. IV Rocephin/IVF. PT/OT. Wood Drilling Machine Operator: Jimena Carcamo, RN Day 4 Comment: 05/14: Patient transferred to ICU overnight. Intubated. PEEP 5. FiO2 40%. Propofol. Versed. Levo. Vaso. IVP Solu Cortef QID. Seizure precautions. WBC 36.5. 7/8 blood cultures pending. IV unasyn Q6. ID following. MRCP today. Surgery following. SW d/t alcohol abuse. Needs TBD pending medical medical course. Wood Drilling Machine Operator: Sonja Mcmahan Day 5 Comment: 05/15: Patient remains intubated. PEEP 5. FiO2 30%. Versed. Levo. IVP Solu Cortef QID. IV ampicillin Q6. WBC 25.3. 7/9 sputum positive. 7/8 blood cultures negative to date. GI following, ERCP today. Surgery following. ID following. SW following d/t alcohol abuse. Needs TBD pending medical course. Wood Drilling Machine Operator: Sonja Mcmahan 6 Comment: 05/16: Patient remains intubated. PEEP 5. FiO2 30%. IVP Solu Cortef QID. LR @ 50. ID following. WBC 9.5. IV ampicillin Q6. Hgb 8.8. Needs TBD pending medical course and therapy recs post extubation. Wood Drilling Machine Operator: Sonja Mcmahan Comment: 05/19 Most recent CIWA 5. Daughter wanting SNF placement per previous CM. PTOT most recent recs IPR. Per nursing documentation, pt not alert and oriented. CM and CHECKER LOADER will speak with daugther further about DC planning. Pt will need a precert if SNF is planned. Currently on Unasyn per ID,Augmentin when stable or at the time of discharge. *Per [facility], they are following to see if pt is appropriate for IPR placement at DC. Message left for Daughter Maria Fernanda per primary nurse request. *No return call from daughter to CM. Per nursing staff daughter called the floor with concerns about DC planning. Email sent to daughter to discuss DC planning per daughters request. *email returned from daughter with SNF choices, [facility] in [place], [place]. [facility] [place]. [facility]- in [place], [place]. *[employer] attempting to get information from daughter/pt brother for intermodal owner operator truck driver PAUL screening. Wood Drilling Machine Operator: Yeimy Metcalf, RN Comment: 05/20 Email this AM from daughter states she is interested in SNF facilities closer to a middle point for her/siser and pt dad/brother so they can all visit pt. Daughter is requesting a family meeting for this wednesday 05/23 at 11am to discuss placement options. Pt will require precert once a facility is obtained. Wood Drilling Machine Operator: Yeimy Metcalf, RN Comment: 05/21 Psych consult placed per attending. EEG ordered per neurology, possible LP per neurology notes. ID following, Unasyn active until 05/26. Telesitter present in room. Pt remains confused. [employer] attempting tank terminal gauger PAUL krunal with family. SNF choices given by daughter to CM and CHECKER LOADER in [place] and [place]. CHECKER LOADER working on placement. Awaiting psych consult to review further placement barriers. Wood Drilling Machine Operator: Yeimy Metcalf, RN Comment: 05/22 SW is working with patients daughter for placement note reads dc planning with pt daughter through email. Pt daughter planning to be at [facility] tomorrow for family meeting. Pt daughter would like to continue looking for SNF at dc. Pt evaluated by telepsych and recs for outpt services. SW faxed clinical referral to [facility] in [place] for review. Wood Drilling Machine Operator: Beverly Mckeon, RN Comment: 05/23 Family meeting at the bedside with attending, Palliative Care PROGRAM TECHNICIAN, CM and CHECKER LOADER. Medical questions answered per attending. CM and CHECKER LOADER spoke about DC planning/placement options/barriers. CHECKER LOADER sending clinicals to [facility] and [facility] to check on placement avalibility. Per [place], PAUL screen complete and pending number provided to CHECKER LOADER. CM and CHECKER LOADER attempting tank terminal gauger placement. Family requesting to speak with community service manager/administration about concerns with pt care/complaints. CM spoke with AOS[employer]PLC x2 to relay information. Email sent to community service manager as she is off to follow up with concerns once back in office. Wood Drilling Machine Operator: Yeimy Metcalf, RN Comment: 05/26 Telesitter removed by primary RN over the weekend. Telesitter remains out of the room at this time. Per CHECKER LOADER, still sending referrals and waiting on accepting facility. Pt also PAUL pending for [facility] placement. Wood Drilling Machine Operator: Yeimy Metcalf, RN Comment: 05/27 Per CHECKER LOADER, facilities requested by daughter in [place] are continuing to review. Precert to start once accepted. Wood Drilling Machine Operator: Yeimy Metcalf, RN Comment: 05/28 Per CHECKER LOADER, facilities still reviewing pt. Per CHECKER LOADER, [place] SNF agreeable to take pt but daughter stating that facility is too far away. Precert to start once a facility accepts. Wood Drilling Machine Operator: Yeimy Metcalf RN Comment: 05/29/25 Pre-cert pending to [facility] in [place]. Wood Drilling Machine Operator: Beverly Mckeon, RN - Respiratory Equipment Does the patient use/have any of these devices at home?: N/A - Community Services Substance Use Screening: Initiated - * L * Length of Stay LOS (Including day of Admission and Discharge): 18 LOS Score: 7 - * A * Acuity on Admission ER Provider if admitted from ER (view): RGMAXO Was patient admitted to hospital via Emergency Dept? Score: 3 - * C * Comorbidities Select All Conditions that Apply: Cerebral Disease (Any previous stroke or transient ischemic attack) Comorbidities Total Score: 1 - * E * Emergency Department Visits # of ER visits,6mos prior to admit,excl this admits ER visit: 0 Enter this number or 4 (whichever is smaller): 0 - LACE SCORE LACE Score: 11 - ANTICIPATED DISCHARGE Anticipated Discharge Date: 05/30/25 Entered by: Beverly Mckeon RN on 05/29/25 1613 Report Signed by: Beverly Mckeon RN on 05/29/25 1617 <<Signature on File>> <Electronically signed by Beverly Mckeon RN> Co-Signed by: on SOCIAL WORK DAILY NOTE Observed: 025 3:53 PM Status: F Source: [facility] National Recruiter Patient: DIONNA CONCEPCION [address] : 1975 [place], [place] [address] Location: [address] [place] [address] Unit #: [id number] Social Work Daily Note Marky Olivo Service Date: 05/29/25 Daily Note - * Psychosocial Assessment * I have reviewed nursing and case management psychosocial information.: Yes - * Hospital Stay Days * Day 1 Note: 05/14/2025: SW c/s for Substance Abuse Screening. Pavan TRIPLETT. +tox for cannabinoids on admission. Hx of alcohol abuse. Enecphalopathy. Pt intubated overnight. National Recruiter to follow peripherally to discuss with pt when medically appropriate. Top Case Assembler: Yeimy Shah, BEST WORKER, AUTOMOBILE RENTAL AGENT Day 2 Note: 05/15/2025: SW following for Substance Abuse Screening. Pavan TRIPLETT. +tox for cannabinoids on admission. Hx of alcohol abuse- Wernickes Enecphalopathy. Pt remains intubated this date. KAYLENE updated by nursing staff that the pt's family is requesting pt d/c to a SNF in the [place], [place] area when medically ready for d/c. KAYLENE called and discussed this with pt's daughter, Maria Fernanda. Maria Fernanda reports most of the family lives between [place] and [place], so [place] would be a good middle location. KAYLENE briefly explained that pt will need to be able to participate with therapy in order for insurance to approve a SNF OR pt will need to have funds to private pay OR pt will need to have Medicaid. Maria Fernanda would like to see how the pt progresses to determine if it will be a short term or tank terminal gauger placement. Maria Fernanda reports she has not talked with her father in 3 years. Maria Fernanda is unaware of pt's finances and does not know of any POA paperwork that the pt has ever completed. Maria Fernanda stated that the pt is not legally to anyone. Maria Fernanda reports the pt has three living children: Maria Fernanda Glynn PH: [phone], Beverly Jamey PH: [phone] AND Dionna Jamey PH: [phone]. Maria Fernanda reports Dionna will likely not want to participate in any decision making for the pt. KAYLENE explained that in [place] if there is no POA/Guardian and if pt is not legally , that any decisions will need to be a consensus between all living children. Maria Fernanda voiced understanding. Maria Fernanda would like to review a list of SNFs in [place], [place] to begin reviewing. Maria Fernanda reports her address is [address] [place] [id number]. A list of SNFs within 30 miles of Maria Fernanda's address with quality scores emailed to Maria Fernanda at [email or web address]. KAYLENE requested Maria Fernanda to provide a list of 5-10 choices as pt may be a difficult placement d/t history of alcohol abuse and insurance. D/c planning needs pending medical course. SW to continue following. Top Case Assembler: Yeimy Shah, DENISSE, KARLA Day 3 Note: 05/16/2025: KAYLENE following for Substance Abuse Screening. Pavan TRIPLETT. +tox for cannabinoids on admission. Hx of alcohol abuse- Wernickes Enecphalopathy. Pt remains intubated this date. D/c planning needs pending medical course. SW to continue following. Top Case Assembler: Yeimy Shah, BEST WORKER, AUTOMOBILE RENTAL AGENT Day 6 Note: 05-19-25 KAYLENE following for SNF/dc planning. JIMBO Crooks emailed pt daughter list of SNF options in [place]. DENISSE Crooks sent referral to [facility] for pt to be screened for PAUL benefit. Pt daughter gave choices of SNFs. Kaylene spoke with admissions of [facility] in [place] and faxed clinical referral to facility. Top Case Assembler: Marky Olivo Day 7 Note: 05-21-25 KAYLENE following for dc planning. DC plan curently pending. SNF referral sent to [facility] in [place] pt first choice and facility unable to accept. Pt daughter possibly wanting SNF in between [place] and [place]. Psych consult ordered. SW will continue to follow. Top Case Assembler: Marky Olivo day 8 Note: 05-22-25 KAYLENE communicated dc planning with pt daughter through email. Pt daughter planning to be at [facility] tomorrow for family meeting. Pt daughter would like to continue looking fo rSNF at [place]. Pt evaluated by telepsych and recs for outpt services. KAYLENE faxed clinical referral to [facility] in [place] for review. Top Case Assembler: Marky Olivo day 9 Note: 05-23-25 KAYLENE and JIMBO spoke with pt and family at bedside along with pt medical provider. KAYLENE and JIMBO discussed LT care options at ia. Pt family continues to be agreeable to SNF. Family is interested in SNF placement residential between [place] and [place]. No preferenc eof facility just something residential for all family. KAYLENE sent referral to [facility] in [place] waiting on facility to review. Clinical referral also faxed to [facility] in [place] for review. Per [facility] PAUL application was completed and submitted on 05-22. Top Case Assembler: Marky Olivo day 12 Note: 05-26-25 KAYLENE following for SNF placement. KAYLENE sent referrals to [facility] and [facility] in [place]. Per admissions at both facilities they have minimal LT beds available and will review pt referral. SW emailed pt daughter to update her of dc planning. SW continuing to follow. Top Case Assembler: Marky Olivo day 13 Note: 05-28-25 SW continuing to follow for SNF placement. Referrals being reviewed by [facility] and [facility]. Sw spoke with admissions at both facilities. Pt referrals denied by both facilities. [facility] in [facility] still able to accept. SW left voicemail for admissions at [facility]. KAYLENE sent an email to pt daughter Maria Fernanda to update her on dc plan and current status with facilities. Top Case Assembler: Marky Olivo day 14 Note: 05-29-25 Pt precert pending to admit at [facility]. Per admissions at facility he will need to follwo up with corporate to see if pt is able to admit PAUL pending. Top Case Assembler: Marky Olivo - * Requested Intvs/Referrals * Top Case Assembler I Referrals: Substance Abuse Screening - Community Services/Interventions Substance Use Screening: Initiated - * HEALTHCARE DECISIONS * Living Will: Unknown Durable Power of Cable Splicer Helper for Health Care: No Directive, No SS Referral [facility] DNR Comfort Care: No Directive, No SS Referral [facility] DNR Comfort Care Arrest: No Directive, No SS Referral Entered by: Marky Olivo on 05/29/25 1551 Report Signed by: Marky Olivo on 05/29/25 1553 <<Signature on File>> <Electronically signed by Marky Olivo> Report Signed by: on PROGRESS NOTE - HOSPITALIST Observed: 3:17 PM Status: F Source: [facility] Medical Records Patient: DIONNA CONCEPCION [address] 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 With metabolic encephalopathy likely secondary to electrolyte disturbance and sepsis CT head-no acute infarct. MRI is suspicious for Warnicke's encephalopathy. Neurology consult appreciated. Continue IV thiamine, multivitamin and folic acid. Continue aspirin, high-dose of Lipitor (monitoring LFT). Psychiatry consult EEG-no epileptiform waves. Repeated MRI on 05/13 report reviewed, chronic changes. Area of encephalomalacia consistent with remote infarction. There is subtle periaqueductal ward enhancement. There has been improvement since prior exam, however pattern can be seen in the setting of thiamine deficiency/Wernicke''s Korsakoff in the correct clinical setting. Plan: Currently on ASA, statin, thiamine, folic acid Resume antipsychotic medication [clonazepam and Seroquel] Waiting for SNF placement. (2) CVA (cerebral vascular accident): Status: Chronic Qualifiers: CVA mechanism: unspecified Qualified Code(s): I63.9 - Cerebral infarction, unspecified Plan: Old infarct in MCA territory (3) Alcoholism: Status: Chronic Plan: Stable Continue thiamine and folic acid (4) Septic shock: Status: Resolved Plan: Resolved (5) Hypertension: Status: Acute Qualifiers: Hypertension type: primary hypertension Qualified Code(s): I10 - Essential (primary) hypertension Plan: Well-controlled Continue low-dose antihypertensive medication. (6) Epistaxis: Status: Acute Plan: Resolved Continue moisturizing with normal saline gel 3 times daily and as needed (7) GI bleed: Status: Ruled-out Qualifiers: GI bleed type/associated pathology: unspecified gastrointestinal hemorrhage type Qualified Code(s): K92.2 - Gastrointestinal hemorrhage, unspecified Plan: Initial concern for GI bleed GI was consulted???status post ERCP No sign of active bleeding Hemoglobin is stable On pantoprazole 40 mg daily. Plan 05/11/2025: Admission:??? a 49-year-old male with a history of alcohol abuse and previous CVA, was admitted to [facility] with complaints of excessive fatigue and generalized weakness. Initial CT head suggested a subacute right MCA infarct. Labs showed hypokalemia and elevated troponin. He was started on aspirin and electrolyte replacement. Neurology was consulted, and an MRI was ordered. 05/12/2025: Neurology Evaluation:???MRI confirmed old cortical gyral ischemic infarcts. Neurology recommended continuing aspirin and statin therapy. Echocardiography showed normal LV function with no PFO. * Infectious Disease Consultation:???Patient developed leukocytosis, and sepsis protocol was initiated. Blood cultures were obtained, and Rocephin was started switched to Zosyn 05/13/2025: WBC count increased significantly, and the patient developed fever and tachycardia. ID switched to Unasyn. CT abdomen/pelvis suggested diverticulitis and chronic pancreatitis. * Critical Care Consultation:???Due to worsening clinical status, including tachypnea and altered mental status, the patient was transferred to the ICU. For possible alcohol withdrawal , DTs, Warnicke encephalopathy 05/14/2025:???The patient was intubated for airway protection due to altered mental status and suspected aspiration. MRCP showed choledocholithiasis, and ERCP was planned. * General surgery was consulted for small bowel obstruction, and an NG tube was placed. 05/15/2025: ERCP Procedure:???Successful sphincterotomy and stone extraction were performed. The patient remained in the ICU for continued monitoring and management of sepsis and respiratory failure. 05/16/2025: he patient was extubated and showed signs of clinical improvement. He remained on antibiotics and supportive care. 05/17/2025:The patient was stable, with resolved sepsis and improved hemodynamics. He was transferred out of the ICU. 05/20/2025: Continued management of Wernicke's encephalopathy with thiamine and multivitamins. The patient showed gradual improvement in mental status. 05/22/2025: Psychiatry Consultation:???Evaluated for encephalopathy and alcohol withdrawal delirium. Recommendations included continuing thiamine and outpatient psychiatric follow-up. * Palliative Care Consultation:???Discussed goals of care with family. The patient was oriented to self and partially to the situation. Family expressed interest in rehabilitation or long-term care placement. Continue to be full code 05/23/2025: Repeated MRI:???A follow-up MRI of the brain was performed, showing diffuse involutional changes and chronic microvascular deep white matter disease. There was an area of encephalomalacia and gliosis along the right inferior frontal gyrus, consistent with remote infarct. Subtle FLAIR and T2 hyperintensity were noted along the ventricular surface of the 3rd ventricle, periaqueductal ward, and mamillary bodies, suggestive of thiamine deficiency/Wernicke's Korsakoff syndrome. Improvement was noted since the prior exam. Aspirin and Plavix held due to nausea 05/24/2025: Patient was lethargic, aggressive and refused examination in the morning however mentation improved after physical therapist worked with the patient. 05/25 Awake and alert. Engaging in conversation. AO x 2. Episode of pneumonia labs. He thought he is in different hospital ;however he remembered when i told him. He is aware of month and year 05/26 awake and alert. Remember our discussion yesterday. Can resume aspirin today as per neurology recommendation. Diastolic blood pressure elevated we can resume amlodipine 2.5 mg daily and monitor vitals 05/27. Awake and alert. Aspirin restarted, no more discussed. Outpatient follow- up recommended by neurology. Blood pressure better controlled 05/28 doing well. Dry skin noted on the nostrils. Saline gel ordered 3 times daily. Continue aspirin 05/29 doing well. Waiting for SNF placement. Discharge planning to a halfway facility for continued recovery and rehabilitation. PreCert needed DVT prophylaxis: Lovenox Current Code Status AND Diet: 05/11/25 18:30 Code Status Routine Resuscitation Status: Full Code Code Status Order Placed: Code Status Ordered 05/11/25 at 1830 05/17/25 10:31 [facility] Diet Texture: Regular Fluid Restrictions?: No Subjective Subjective: Primary Care Provider: Tay Camara MD Chief Complaint: RT MCA INFARCT/LT SIDED WEAKNESS Patient was seen and examined, no acute distress, resting comfortably. Waiting for SNF placement. Patient Status AND Estimated DC Date Patient Registration Status: Inpatient Objective Physical Exam: GEN: No acute distress, lying comfortably HEENT: No lymphadenopathy, neck is supple, left gaze palsy, dry skin on the nose Chest: Bilateral air entry, no wheezing or rhonchi CVS: S1 and S2, no gallop or murmur Abdomen: Soft, normal bowel sound, no organomegaly Extremities: No edema bilateral lower extremities., Weakness noted Constitutional: Last Vital Signs Temp Pulse Resp BP Pulse Ox O2 Flow RateFiO2 99.1 F 106 H 14 121/90 97 5 40 05/29/25 08:05/29/25 08:05/29/25 08:05/29/25 08:05/29/25 08:05/21/25 07:05/16/25 16: 02 02 02 02 02 53 30 Intake and Output Intake Total 550 360 Output Total 1425 354 Balance -1425 196 360 Admitting (IV Pump) Weight 61.4 kg Actual Weight (Kg) 69.6 kg Data Labs: Phosphorus 6.1 H Magnesium 1.9 WBC 12.1 H RBC 3.02 L Hgb 10.1 L Hct 29.2 L MCV 96.8 MCH 33.6 H MCHC 34.7 RDW 17.7 H Plt Count 470 H Sodium 138 Potassium 4.1 Chloride 107 Carbon Dioxide 22 Anion Gap 9 BUN 20 D Creatinine 0.76 Calcium 9.70 The last 24 hours of labs have been reviewed. Imaging: I have reviewed the diagnostic images in the EMR. Microbiology: Microbiology 05/28/25 01:00 Urine, clean catch Urine Culture - Preliminary No growth after 1 day. Medications and Comanagement: Medications reviewed separately. Pressure Injury/Pressure Area of Concern Sacrum: Site identified as: Area of Concern Provider Reviewed: Assessed wound today ??? agree with findings as above Entered by: Aimee Chester MD on 05/29/25 1118 Report Signed by: Aimee Chester MD on 05/29/25 1517 <<Signature on File>> <Electronically signed by Aimee Chester MD> Report Signed by: on RENAL FUNCTION PANEL Collected: 05/29/2025 4:49 AM S tatus: F Source: [facility] TYPE CODE TESTS RESULT OUT OF RANGE REFERENCE UNITS LAB L400.1400 Sodium 138 Normal 135-145 mEq/L LAB L400.1500 Potassium 4.1 Normal 3.6-5.0 mEq/L LAB L400.1600 Chloride 107 Normal 101-111 mEq/L LAB L400.1700 Carbon Dioxide 22 Normal 21-32 mEq/L LAB L400.1800 Anion Gap 9 Normal 4-12 LAB L400.1820 Glucose 102 Normal 70-110 mg/dL Result Comment: *This refere nce range applies to fasting specimens only. LAB L400.1835 BUN 20 Unknown 7-20 mg/dL Result Comment: Delta: 11 on 05/27/25-0456 LAB L400.1840 Creatinine 0.76 Normal 0.60-1.30 mg/dL LAB L400.1845 GFR Calculation > 60 Normal Result Comment: Chronic Kidn ey Disease stages by NKDF Stage eGFR I >90 II 60-89 III 30-59 IV 15-29 V <15 or dialysis Note: Information regarding the eGFR equation used can be found at https://www.kidney.org/xmzx-ybhwd-iwldaadx. AGE(years) AVERAGE GFR 50-59 93 ml/min/1.73 square meters Note:This result is normalized to 1.73 square meter body surface area. Height and weight are not factored. LAB L400.2100 Calcium 9.70 Normal 8.8-10.5 mg/dL LAB L400.2120 Albumin 3.6 Normal 3.5-5.0 g/dL LAB L400.2200 Phosphorus 6.1 High 2.4-4.7 mg/dL Performed By: #### L400.5100 , L400.0410 #### Main Laboratory ([facility]) [address] [place] [address] Regan Sahni MD MAGNESIUM Collected: 4:49 AM Status: F Source: [facility] TYPE CODE TESTS RESULT OUT OF RANGE REFERENCE UNITS LAB L400.5100 Magnesium 1.9 Normal 1.8-2.5 mg/dL Performed By: #### L400.5100 , L400.0410 #### Main Laboratory ([facility]) [address] [place] [address] Regan Sahni MD CBC WITHOUT DIFFERENTIAL Collected: 4:49 AM Status: F Source: [facility] TYPE CODE TESTS RESULT OUT OF RANGE REFERENCE UNITS LAB L100.0100 WBC 12.1 High 4.4-10.5 th/cmm LAB L100.0300 RBC 3.02 Low 4.50-6.00 mil/cmm LAB L100.0400 Hemoglobin 10.1 Low 13.5-16.5 gm/dL LAB L100.0500 Hematocrit 29.2 Low 40.0-49.0 % LAB L100.0600 MCV 96.8 Normal 80-97 CU DEIDRA LAB L100.0700 MCH 33.6 High 27.5-33.0 PG LAB L100.0800 MCHC 34.7 Normal 33.0-36.0 gm/dL LAB L100.0900 RDW 17.7 High 12.0-16.0 % LAB L100.1000 Platelet Count 470 High 150-400 th/cmm Performed By: #### L100.0050 #### Main Laboratory ([facility]) [address] [place] [address] Regan Sahni MD CASE MANAGEMENT DAILY NOTE Observed: 3:36 PM Status: F Source: [facility] Case Management Patient: DIONNA CONCEPCION [address] : 1975 [place], [place] [address] Location: [phone] Unit #: [id number] Case Management Daily Note Yeimy Metcalf RN Service Date: 05/28/25 Case Mgmt Daily Note - Plan of Care Wood Drilling Machine Operator Agrees with Attending and Consult Plan: Yes - Patient Preferences AND Goals What is the patient's preference?: Services to be Determined Recommended acute discharge goals: Services to be Determined - Hospital Stay Days Day 1 Comment: 05/11 - Spoke with patient at bedside. Patient has Pavan Huynh. PCP is Pam Camara. director of player personnel is his father, Dionna. Pharmacy [facility]. Denies services, DME. He is independent of ADLS and drives. He lives with his brother and father in a 1 story home with no steps to enter. Denies LW/DPOA. Per primary nurse, Jenni, she states that EMS reported that family stated patient has been depressed and having trouble with his left side weakness from his stroke 2 months ago. Also states he has been falling at home. Wood Drilling Machine Operator: Ana Snyder, RN Day 2 Comment: 05/12 - Spoke with pt. MRI completed and pending results. Neuro following. PT/OT ordered and recommended IPR. Rehab consulted to review case and waiting on response. Wood Drilling Machine Operator: Shelbi Jackson Day 3 Comment: 05/13 Dispo pending medical course. IPR following, c/s placed 05/12. MRI B (-) for acute CVA. WBC 42.9. Lactic 3.7. BC/UA/Sputum Cx. IV Rocephin/IVF. PT/OT. Wood Drilling Machine Operator: Jimena Carcamo, RN Day 4 Comment: 05/14: Patient transferred to ICU overnight. Intubated. PEEP 5. FiO2 40%. Propofol. Versed. Levo. Vaso. IVP Solu Cortef QID. Seizure precautions. WBC 36.5. 7/8 blood cultures pending. IV unasyn Q6. ID following. MRCP today. Surgery following. SW d/t alcohol abuse. Needs TBD pending medical medical course. Wood Drilling Machine Operator: Sonja Mcmahan Day 5 Comment: 05/15: Patient remains intubated. PEEP 5. FiO2 30%. Versed. Levo. IVP Solu Cortef QID. IV ampicillin Q6. WBC 25.3. 05/14 sputum positive. 05/13 blood cultures negative to date. GI following, ERCP today. Surgery following. ID following. SW following d/t alcohol abuse. Needs TBD pending medical course. Wood Drilling Machine Operator: Sonja Mcmahan Day 6 Comment: 05/16: Patient remains intubated. PEEP 5. FiO2 30%. IVP Solu Cortef QID. LR @ 50. ID following. WBC 9.5. IV ampicillin Q6. Hgb 8.8. Needs TBD pending medical course and therapy recs post extubation. Wood Drilling Machine Operator: Sonja Mcmahan Day 9 Comment: 05/19 Most recent CIWA 5. Daughter wanting SNF placement per previous CM. PTOT most recent recs IPR. Per nursing documentation, pt not alert and oriented. CM and CHECKER LOADER will speak with daugther further about DC planning. Pt will need a precert if SNF is planned. Currently on Unasyn per ID,Augmentin when stable or at the time of discharge. *Per [facility], they are following to see if pt is appropriate for IPR placement at DC. Message left for Daughter Maria Fernanda per primary nurse request. *No return call from daughter to CM. Per nursing staff daughter called the floor with concerns about DC planning. Email sent to daughter to discuss DC planning per daughters request. *email returned from daughter with SNF choices, [facility] in [place], [place]. [facility] [place], [place]. [facility] in [place], [place]. *[employer] attempting to get information from daughter/pt brother for intermodal owner operator truck driver PAUL screening. Wood Drilling Machine Operator: Yeimy Metcalf, RN Comment: 05/20 Email this AM from daughter states she is interested in SNF facilities closer to a middle point for her/siser and pt dad/brother so they can all visit pt. Daughter is requesting a family meeting for this wednesday 05/23 at 11am to discuss placement options. Pt will require precert once a facility is obtained. Wood Drilling Machine Operator: Yeimy Metcalf, RN Comment: 05/21 Psych consult placed per attending. EEG ordered per neurology, possible LP per neurology notes. ID following, Unasyn active until 05/26. Telesitter present in room. Pt remains confused. [facility] attempting [facility]p PAUL krunal with family. SNF choices given by daughter to CM and CHECKER LOADER in [place] and [place]. CHECKER LOADER working on placement. Awaiting psych consult to review further placement barriers. Wood Drilling Machine Operator: Yeimy Metcalf, RN Comment: 05/22 SW is working with patients daughter for placement note reads dc planning with pt daughter through email. Pt daughter planning to be at [facility] tomorrow for family meeting. Pt daughter would like to continue looking for SNF at ia. Pt evaluated by telepsych and recs for outpt services. KAYLENE faxed clinical referral to [facility] in [place] for review. Wood Drilling Machine Operator: Beverly Mckeon, RN Comment: 05/23 Family meeting at the bedside with attending, Palliative Care PROGRAM TECHNICIAN, CM and CHECKER LOADER. Medical questions answered per attending. CM and CHECKER LOADER spoke about DC planning/placement options/barriers. CHECKER LOADER sending clinicals to [facility] and [facility] to check on placement avalibility. Per [place], PAUL screen complete and pending number provided to CHECKER LOADER. CM and CHECKER LOADER attempting tank terminal gauger placement. Family requesting to speak with community service manager/administration about concerns with pt care/complaints. CM spoke with [employer] x2 to relay information. Email sent to community service manager as she is off to follow up with concerns once back in office. Wood Drilling Machine Operator: Yeimy Metcalf, RN Comment: 05/26 Telesitter removed by primary RN over the weekend. Telesitter remains out of the room at this time. Per CHECKER LOADER, still sending referrals and waiting on accepting facility. Pt also PAUL pending for tank terminal gauger placement. Wood Drilling Machine Operator: Yeimy Metcalf, RN 17 Comment: 05/27 Per CHECKER LOADER, facilities requested by daughter in [place] are continuing to review. Precert to start once accepted. Wood Drilling Machine Operator: Yeimy Metcalf, RN Day 18 Comment: 05/28 Per CHECKER LOADER, facilities still reviewing pt. Per CHECKER LOADER, [facility] agreeable to take pt but daughter stating that facility is too far away. Precert to start once a facility accepts. Wood Drilling Machine Operator: Yeimy Metcalf, RN - Respiratory Equipment Does the patient use/have any of these devices at home?: N/A - Community Services Substance Use Screening: Initiated - * L * Length of Stay LOS (Including day of Admission and Discharge): 17 LOS Score: 7 - * A * Acuity on Admission ER Provider if admitted from ER (view): RGMAXO Was patient admitted to hospital via Emergency Dept? Score: 3 - * C * Comorbidities Select All Conditions that Apply: Cerebral Disease (Any previous stroke or transient ischemic attack) Comorbidities Total Score: 1 - * E * Emergency Department Visits # of ER visits,6mos prior to admit,excl this admits ER visit: 0 Enter this number or 4 (whichever is smaller): 0 - LACE SCORE LACE Score: 11 - ANTICIPATED DISCHARGE Anticipated Discharge Date: 05/30/25 Entered by: Yeimy Metcalf RN on 05/28/25 1115 Report Signed by: Yeimy Metcalf RN on 05/28/25 1536 <<Signature on File>> <Electronically signed by Yeimy Metcalf RN> Co-Signed by: on SOCIAL WORK DAILY NOTE Observed: 025 3:32 PM Status: F Source: [facility] National Recruiter Patient: DIONNA CONCEPCION [address] : 1975 [place], [place] [address] Location: [address] [place] [address] Unit #: [id number] Social Work Daily Note Marky Olivo Service Date: 07/23/25 SW Daily Note - * Psychosocial Assessment * I have reviewed nursing and case management psychosocial information.: Yes - * Hospital Stay Days * Day 1 Note: 05/14/2025: SW c/s for Substance Abuse Screening. Tad Ambetter. CIWA. +tox for cannabinoids on admission. Hx of alcohol abuse. Enecphalopathy. Pt intubated overnight. National Recruiter to follow peripherally to discuss with pt when medically appropriate. Top Case Assembler: Yeimy Shah, BEST WORKER, AUTOMOBILE RENTAL AGENT Day 2 Note: 05/15/2025: KAYLENE following for Substance Abuse Screening. Tad Ambetter. CIWA. +tox for cannabinoids on admission. Hx of alcohol abuse- Wernickes Enecphalopathy. Pt remains intubated this date. KAYLENE updated by nursing staff that the pt's family is requesting pt d/c to a SNF in the [place], [place] area when medically ready for d/c. KAYLENE called and discussed this with pt's daughter, Maria Fernanda. Maria Fernanda reports most of the family lives between [place] and [place], so [place] would be a good middle location. KAYLENE briefly explained that pt will need to be able to participate with therapy in order for insurance to approve a SNF OR pt will need to have funds to private pay OR pt will need to have Medicaid. Maria Fernanda would like to see how the pt progresses to determine if it will be a short term or tank terminal gauger placement. Maria Fernanda reports she has not talked with her father in 3 years. Maria Fernanda is unaware of pt's finances and does not know of any POA paperwork that the pt has ever completed. Maria Fernanda stated that the pt is not legally to anyone. Maria Fernanda reports the pt has three living children: Maria Fernanda Glynn PH: [phone], Beverly Jamey PH: [phone] AND Dionna Jamey PH: [phone]. Maria Fernanda reports Dionna will likely not want to participate in any decision making for the pt. KAYLENE explained that in [place] if there is no POA/Guardian and if pt is not legally , that any decisions will need to be a consensus between all living children. Maria Fernanda voiced understanding. Maria Fernanda would like to review a list of SNFs in [place], [place] to begin reviewing. Maria Fernanda reports [place] is [address] [place], [place] [address] [address]. A list of SNFs within 30 miles of Maria Fernanda's address with quality scores emailed to Maria Fernanda at [email or web address]. KAYLENE requested Maria Fernanda to provide a list of 5-10 choices as pt may be a difficult placement d/t history of alcohol abuse and insurance. D/c planning needs pending medical course. SW to continue following. Top Case Assembler: Yeimy Shah, DENISSE, KARLA Day 3 Note: 05/16/2025: SW following for Substance Abuse Screening. Pavan Huynh. UZIEL. +tox for cannabinoids on admission. Hx of alcohol abuse- Wernickes Enecphalopathy. Pt remains intubated this date. D/c planning needs pending medical course. SW to continue following. Top Case Assembler: Yeimy Shah, DENISSE, KARLA Day 6 Note: 05-19-25 KAYLENE following for SNF/dc planning. JIMBO Crooks emailed pt daughter list of SNF options in [place]. DENISSE Crooks sent referral to [facility] for pt to be screened for PAUL benefit. Pt daughter gave choices of SNFs. Kaylene spoke with admissions of [facility] in [place] and faxed clinical referral to facility. Top Case Assembler: Marky Olivo 7 Note: 05-21-25 KAYLENE following for dc planning. DC plan curently pending. SNF referral sent to [facility] in [place] pt first choice and facility unable to accept. Pt daughter possibly wanting SNF in between [place] and [place]. Psych consult ordered. KAYLENE will continue to follow. Top Case Assembler: Marky Olivo 8 Note: 05-22-25 KAYLENE communicated dc planning with pt daughter through email. Pt daughter planning to be at [facility] tomorrow for family meeting. Pt daughter would like to continue looking fo rSNF at ia. Pt evaluated by telepsych and recs for outpt services. KAYLENE faxed clinical referral to [facility] in [place] for review. Top Case Assembler: Marky Olivo 9 Note: 05-23-25 KAYLENE and JIMBO spoke with pt and family at bedside along with pt medical provider. KAYLENE and JIMBO discussed LT care options at ia. Pt family continues to be agreeable to SNF. Family is interested in SNF placement residential between [place] and [place]. No preferenc eof facility just something residential for all family. KAYLENE sent referral to [facility] in [place] waiting on facility to review. Clinical referral also faxed to [facility] in [place] for review. Per Critical access hospital application was completed and submitted on 05-22. Top Case Assembler: Marky Olivo day 12 Note: 05-26-25 KAYLENE following for SNF placement. SW sent referrals to [facility] and [facility] in [place]. Per admissions at both facilities they have minimal LT beds available and will review pt referral. SW emailed pt daughter to update her of dc planning. SW continuing to follow. Top Case Assembler: Marky Olivo Note: 05-28-25 SW continuing to follow for SNF placement. Referrals being reviewed by [facility] and [facility]. Sw spoke with admissions at both facilities. Pt referrals denied by both facilities. [facility] in [facility] still able to accept. SW left voicemail for admissions at [facility]. KAYLENE sent an email to pt daughter Maria Fernanda to update her on dc plan and current status with facilities. Top Case Assembler: Marky Olivo - * Requested Intvs/Referrals * Top Case Assembler I Referrals: Substance Abuse Screening - Community Services/Interventions Substance Use Screening: Initiated - * HEALTHCARE DECISIONS * Living Will: Unknown Durable Power of Cable Splicer Helper for Health Care: No Directive, No SS Referral [facility] DNR Comfort Care: No Directive, No SS Referral [facility] DNR Comfort Care Arrest: No Directive, No SS Referral Entered by: Marky Olivo on 05/28/25 1525 Report Signed by: Marky Olivo on 05/28/25 1532 <<Signature on File>> <Electronically signed by Marky Olivo> Report Signed by: on PROGRESS NOTE - HOSPITALIST Observed: 12:51 PM Status: F Source: [facility] Medical Records Patient: DIONNA CONCEPCION [address] : 1975 [place], [place] [address] Location: [phone] Unit #: [id number] Progress Note - Hospitalist Rose Sanchez MD Service Dt/Tm: 05/28/25 0810 Assessment/Plan Assessment/Plan (1) Wernickes encephalopathy: Status: Acute Plan: Patient with history of alcohol abuse and previous stroke with residual left- sided weakness (right MCA stroke in 01/28) presented with generalized weakness and confusion. With metabolic encephalopathy likely secondary to electrolyte disturbance and sepsis CT head-no acute infarct. MRI is suspicious for Warnicke's encephalopathy. Neurology consult appreciated. Continue IV thiamine, multivitamin and folic acid. Continue aspirin, high-dose of Lipitor (monitoring LFT). Psychiatry consult noted-no plan to start psychiatric medication for now. EEG-no epileptiform waves. Repeated MRI on 05/13 report reviewed, chronic changes. Area of encephalomalacia consistent with remote infarction. There is subtle periaqueductal ward enhancement. There has been improvement since prior exam, however pattern can be seen in the setting of thiamine deficiency/Wernicke''s Korsakoff in the correct clinical setting. Neurologist recommendation appreciated. can resume aspirin no more epistaxis, continue thiamine daily., Cognitive evaluation neurology. Delirium precautions: Blinds open during the day, closed at night, frequent reorientation, minimize nighttime interruptions as possible avoid benzodiazepines, opioid pain medications, and anticholinergic medications (2) Sepsis: Status: Resolved Qualifiers: Sepsis acute organ dysfunction status: unspecified Sepsis type: sepsis due to unspecified organism Qualified Code(s): A41.9 - Sepsis, unspecified organism Plan: Presented to the emergency room on 05/11 complaining of generalized weakness and fatigue Patient has residual left-sided weakness from previous stroke with lateral gaze palsy Hospital course complicated by sepsis secondary to acute cholelithiasis with concern about alcohol withdrawal with delirium tremens and Warnicke cephalopathy. Transferred to the ICU, intubated 05/14 to 05/16. Was on vasopressor General surgery consulted small bowel obstruction treated NG tube. Possible aspiration General Surgery ID and GI on board (3) Fatigue: Status: Acute Qualifiers: Fatigue type: unspecified Qualified Code(s): R53.83 - Other fatigue Plan: Presented to the emergency room on 05/11 complaining of generalized weakness and fatigue Continue PT/OT. (4) Left-sided weakness: Status: Chronic Plan: Patient has residual left-sided weakness from previous stroke in 01/28 (right MCA stroke). Echo-no PFO. Continue PT/OT. (5) History of right MCA stroke: Status: Chronic Plan: As above. (6) Gaze palsy: Status: Chronic Plan: 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 in January (7) Dehydration: Status: Resolved Plan: Received IV hydration (8) Fever: Status: Resolved Qualifiers: Fever type: unspecified Qualified Code(s): R50.9 - Fever, unspecified Plan: Patient had a fever. LFT was abnormal concerning for cholangitis. GI consulted-underwent ERCP with extraction of the gallstone. ID consulted appreciated. CT abdomen-05/13/2025 suggestive of diverticulitis. Treat for diverticulitis with IV Unasyn (or oral Augmentin) for total of 14 days (last date will be 05/26/2025). (9) Leukocytosis: Status: Resolved Qualifiers: Leukocytosis type: bandemia Qualified Code(s): D72.825 - Bandemia (10) Choledocholithiasis: Status: Resolved (11) CVA (cerebral vascular accident): Status: Chronic Qualifiers: CVA mechanism: unspecified Qualified Code(s): I63.9 - Cerebral infarction, unspecified Plan: Old infarct in MCA territory per imaging (12) Sinus tachycardia: Status: Resolved Plan: Treated and resolved (13) Alcoholism: Status: Chronic Plan: CIWA scale (14) Metabolic acidosis: Status: Resolved Plan: Treated and resolved (15) Alcohol withdrawal: Status: Resolved Qualifiers: Complication of substance-induced condition: with delirium Qualified Code(s): F10.931 - Alcohol use, unspecified with withdrawal delirium Plan: Out of the window MVI, thiamine, folic acid (16) GI bleed: Status: Ruled-out Qualifiers: GI bleed type/associated pathology: unspecified gastrointestinal hemorrhage type Qualified Code(s): K92.2 - Gastrointestinal hemorrhage, unspecified Plan: No evidence of GI bleed during ERCP 05/15/2025 PPI daily VTE prophylaxis (17) Septic shock: Status: Resolved Plan: Treated for septic shock with resolution Required vasopressor for hypotension (18) Urinary retention: Status: Acute Plan: Freeman catheter placed for urinary retention. Voiding trial today. (19) Hypertension: Status: Acute Qualifiers: Hypertension type: primary hypertension Qualified Code(s): I10 - Essential (primary) hypertension Plan: Blood pressure was elevated, most likely diastolic. At home patient on amlodipine 10 mg daily Amlodipine 2.5 mg started. Blood pressure improved (20) Epistaxis: Status: Acute Plan: Dried blood on the patient with a nostrils noted. Likely secondary to dryness. Continue moisturizing with normal saline gel 3 times daily and as needed Plan 05/11/2025: Admission:??? a 49-year-old male with a history of alcohol abuse and previous CVA, was admitted to [facility] with complaints of excessive fatigue and generalized weakness. Initial CT head suggested a subacute right MCA infarct. Labs showed hypokalemia and elevated troponin. He was started on aspirin and electrolyte replacement. Neurology was consulted, and an MRI was ordered. 05/12/2025: Neurology Evaluation:???MRI confirmed old cortical gyral ischemic infarcts. Neurology recommended continuing aspirin and statin therapy. Echocardiography showed normal LV function with no PFO. * Infectious Disease Consultation:???Patient developed leukocytosis, and sepsis protocol was initiated. Blood cultures were obtained, and Rocephin was started switched to Zosyn 05/13/2025: WBC count increased significantly, and the patient developed fever and tachycardia. ID switched to Unasyn. CT abdomen/pelvis suggested diverticulitis and chronic pancreatitis. * Critical Care Consultation:???Due to worsening clinical status, including tachypnea and altered mental status, the patient was transferred to the ICU. For possible alcohol withdrawal , DTs, Warnicke encephalopathy 05/14/2025:???The patient was intubated for airway protection due to altered mental status and suspected aspiration. MRCP showed choledocholithiasis, and ERCP was planned. * General surgery was consulted for small bowel obstruction, and an NG tube was placed. 05/15/2025: ERCP Procedure:???Successful sphincterotomy and stone extraction were performed. The patient remained in the ICU for continued monitoring and management of sepsis and respiratory failure. 05/16/2025: he patient was extubated and showed signs of clinical improvement. He remained on antibiotics and supportive care. 05/17/2025:The patient was stable, with resolved sepsis and improved hemodynamics. He was transferred out of the ICU. 05/20/2025: Continued management of Wernicke's encephalopathy with thiamine and multivitamins. The patient showed gradual improvement in mental status. 05/22/2025: Psychiatry Consultation:???Evaluated for encephalopathy and alcohol withdrawal delirium. Recommendations included continuing thiamine and outpatient psychiatric follow-up. * Palliative Care Consultation:???Discussed goals of care with family. The patient was oriented to self and partially to the situation. Family expressed interest in rehabilitation or long-term care placement. Continue to be full code 05/23/2025: Repeated MRI:???A follow-up MRI of the brain was performed, showing diffuse involutional changes and chronic microvascular deep white matter disease. There was an area of encephalomalacia and gliosis along the right inferior frontal gyrus, consistent with remote infarct. Subtle FLAIR and T2 hyperintensity were noted along the ventricular surface of the 3rd ventricle, periaqueductal ward, and mamillary bodies, suggestive of thiamine deficiency/Wernicke's Korsakoff syndrome. Improvement was noted since the prior exam. Aspirin and Plavix held due to nausea 05/24/2025: Patient was lethargic, aggressive and refused examination in the morning however mentation improved after physical therapist worked with the patient. 05/25 Awake and alert. Engaging in conversation. AO x 2. Episode of pneumonia labs. He thought he is in different hospital ;however he remembered when i told him. He is aware of month and year 05/26 awake and alert. Remember our discussion yesterday. Can resume aspirin today as per neurology recommendation. Diastolic blood pressure elevated we can resume amlodipine 2.5 mg daily and monitor vitals 05/27. Awake and alert. Aspirin restarted, no more discussed. Outpatient follow- up recommended by neurology. Blood pressure better controlled 05/28 doing well. Dry skin noted on the nostrils. Saline gel ordered 3 times daily. Continue aspirin Discharge planning to a halfway facility for continued recovery and rehabilitation. PreCert needed DVT prophylaxis: Lovenox Current Code Status AND Diet: 05/11/25 18:30 Code Status Routine Resuscitation Status: Full Code Code Status Order Placed: Code Status Ordered 05/11/25 at 1830 05/17/25 10:31 AHA Diet Texture: Regular Fluid Restrictions?: No Discussed Patient's Care With: Nurse and Case Management Subjective Subjective: Primary Care Provider: Tay Camara MD Chief Complaint: RT MCA INFARCT/LT SIDED WEAKNESS Patient seen and examined this morning. Awake and alert. Has episodes of nosebleed likely secondary to dryness. Patient alert x 3 today. Pending SNF placement Patient Status AND Estimated DC Date Patient Registration Status: Inpatient Objective Physical Exam: GEN: No acute distress, lying comfortably HEENT: No lymphadenopathy, neck is supple, left gaze palsy, dry skin on the nose Chest: Bilateral air entry, no wheezing or rhonchi CVS: S1 and S2, no gallop or murmur Abdomen: Soft, normal bowel sound, no organomegaly Extremities: No edema bilateral lower extremities., Weakness noted Social determinants of health completed per CM, reviewed. Constitutional: Last Vital Signs Temp Pulse Resp BP Pulse Ox O2 Flow RateFiO2 98.3 F 102 H 18 132/95 H 97 5 40 05/28/25 04:05/28/25 04:05/28/25 04:05/28/25 04:05/28/25 04:05/21/25 07:05/16/25 16: 38 38 38 38 38 53 30 Intake and Output Intake Total 734.61 Output Total 1700 1425 Balance -965.39 -1425 Admitting (IV Pump) Weight 61.4 kg Actual Weight (Kg) 70.1 kg Data Labs: The last 24 hours of labs have been reviewed. Imaging: I have reviewed the diagnostic images in the EMR. Medications and Comanagement: Medications reviewed separately. Pressure Injury/Pressure Area of Concern Sacrum: Site identified as: Area of Concern Provider Reviewed: Didn't assess today ??? findings per nursing; continue current treatment Entered by: Rose Sanchez MD on 05/28/25 0810 Report Signed by: Rose Sanchez MD on 05/28/25 1251 <<Signature on File>> <Electronically signed by Rose Sanchez MD> Report Signed by: on URINE CULTURE Observed: 05/28/2025 1:00 AM Status: F Source: [facility] Order Comment: Urinary Adeola ter Insertion Date 05/24/25 No growth after 2 days. Performed By: #### [id number] #### Main Laboratory ([facility]) [address] [place] [address] Regan Sahni MD CASE MANAGEMENT DAILY NOTE Observed: 3:50 PM Status: F Source: [facility] Case Management Patient: DIONNA CONCEPCION [address] : 1975 [place], [place] [address] Location: [facility] [phone] Unit #: [id number] [facility] #: [id number] Case Management Daily Note Yeimy Metcalf RN Service Date: 05/26/25 Case Mgmt Daily Note - Plan of Care Wood Drilling Machine Operator Agrees with Attending and Consult Plan: Yes - Patient Preferences AND Goals What is the patient's preference?: Services to be Determined Recommended acute discharge goals: Services to be Determined - Hospital Stay Days Day 1 Comment: 05/11 - Spoke with patient at bedside. Patient has Pavan Huynh. PCP is Pam Camara. director of player personnel is his father, Dionna. [facility]acy [facility]. Denies services, DME. He is independent of ADLS and drives. He lives with his brother and father in a 1 story home with no steps to enter. Denies LW/DPOA. Per primary nurse, Jenni, she states that EMS reported that family stated patient has been depressed and having trouble with his left side weakness from his stroke 2 months ago. Also states he has been falling at home. Wood Drilling Machine Operator: Ana Snyder, RN Day 2 Comment: 05/12 - Spoke with pt. MRI completed and pending results. Neuro following. PT/OT ordered and recommended IPR. Rehab consulted to review case and waiting on response. Wood Drilling Machine Operator: Shelbi Jackson Day 3 Comment: 05/13 Dispo pending medical course. IPR following, c/s placed 05/12. MRI B (-) for acute CVA. WBC 42.9. Lactic 3.7. BC/UA/Sputum Cx. IV Rocephin/IVF. PT/OT. Wood Drilling Machine Operator: Jimena Carcamo, RN Day 4 Comment: 05/14: Patient transferred to ICU overnight. Intubated. PEEP 5. FiO2 40%. Propofol. Versed. Levo. Vaso. IVP Solu Cortef QID. Seizure precautions. WBC 36.5. 05/13 blood cultures pending. IV unasyn Q6. ID following. MRCP today. Surgery following. SW d/t alcohol abuse. Needs TBD pending medical medical course. Wood Drilling Machine Operator: Sonja Mcmahan Day 5 Comment: 05/15: Patient remains intubated. PEEP 5. FiO2 30%. Versed. Levo. IVP Solu Cortef QID. IV ampicillin Q6. WBC 25.3. 05/14 sputum positive. 05/13 blood cultures negative to date. GI following, ERCP today. Surgery following. ID following. SW following d/t alcohol abuse. Needs TBD pending medical course. Wood Drilling Machine Operator: Sonja Mcmahan Day 6 Comment: 05/16: Patient remains intubated. PEEP 5. FiO2 30%. IVP Solu Cortef QID. LR @ 50. ID following. WBC 9.5. IV ampicillin Q6. Hgb 8.8. Needs TBD pending medical course and therapy recs post extubation. Wood Drilling Machine Operator: Sonja Mcmahan Day 9 Comment: 05/19 Most recent CIWA 5. Daughter wanting SNF placement per previous CM. PTOT most recent recs IPR. Per nursing documentation, pt not alert and oriented. CM and CHECKER LOADER will speak with daugther further about DC planning. Pt will need a precert if SNF is planned. Currently on Unasyn per ID,Augmentin when stable or at the time of discharge. *Per [facility], they are following to see if pt is appropriate for IPR placement at DC. Message left for Daughter Maria Fernanda per primary nurse request. *No return call from daughter to CM. Per nursing staff daughter called the floor with concerns about DC planning. Email sent to daughter to discuss DC planning per daughters request. *email returned from daughter with SNF choices, [facility] in [place], [place]. [facility] [place]. [facility]- in [place], [place]. *[facility] attempting to get information from daughter/pt brother for jail PAUL screening. Wood Drilling Machine Operator: Yeimy Metcalf, RN Comment: 05/20 Email this AM from daughter states she is interested in SNF facilities closer to a middle point for her/siser and pt dad/brother so they can all visit pt. Daughter is requesting a family meeting for this wednesday 05/23 at 11am to discuss placement options. Pt will require precert once a facility is obtained. Wood Drilling Machine Operator: Yeimy Metcalf, RN Day Comment: 05/21 Psych consult placed per attending. EEG ordered per neurology, possible LP per neurology notes. ID following, Unasyn active until 05/26. Telesitter present in room. Pt remains confused. [employer] attempting tank terminal gauger PAUL krunal with family. SNF choices given by daughter to CM and CHECKER LOADER in [place] and [place]. CHECKER LOADER working on placement. Awaiting psych consult to review further placement barriers. Wood Drilling Machine Operator: Yeimy Metcalf, RN 12 Comment: 05/22 SW is working with patients daughter for placement note reads dc planning with pt daughter through email. Pt daughter planning to be at [facility] tomorrow for family meeting. Pt daughter would like to continue looking for SNF [facility]. Pt evaluated by telepsych and recs for outpt services. SW faxed clinical referral to [facility] in [place] for review. Wood Drilling Machine Operator: Beverly Mckeon RN Comment: 05/23 Family meeting at the bedside with attending, Palliative Care PROGRAM TECHNICIAN, CM and CHECKER LOADER. Medical questions answered per attending. CM and CHECKER LOADER spoke about DC planning/placement options/barriers. CHECKER LOADER sending clinicals to [facility] and [place] area to check on placement avalibility. Per Keon, PAUL screen complete and pending number provided to CHECKER LOADER. CM and CHECKER LOADER attempting [facility] placement. Family requesting to speak with community service manager/administration about concerns with pt care/complaints. CM spoke with [employer] x2 to relay information. Email sent to community service manager as she is off to follow up with concerns once back in office. Wood Drilling Machine Operator: Yeimy Metcalf, RN Comment: 05/26 Telesitter removed by primary RN over the weekend. Telesitter remains out of the room at this time. Per CHECKER LOADER, still sending referrals and waiting on accepting facility. Pt also PAUL pending for mcfp placement. Wood Drilling Machine Operator: Yeimy Metcalf, RN - Respiratory Equipment Does the patient use/have any of these devices at home?: N/A - Community Services Substance Use Screening: Initiated - * L * Length of Stay LOS (Including day of Admission and Discharge): 15 LOS Score: 7 - * A * Acuity on Admission ER Provider if admitted from ER (view): [email or web address] Was patient admitted to hospital via Emergency Dept? Score: 3 - * C * Comorbidities Select All Conditions that Apply: Cerebral Disease (Any previous stroke or transient ischemic attack) Comorbidities Total Score: 1 - * E * Emergency Department Visits # of ER visits,6mos prior to admit,excl this admits ER visit: 0 Enter this number or 4 (whichever is smaller): 0 - LACE SCORE LACE Score: 11 - ANTICIPATED DISCHARGE Anticipated Discharge Date: 05/23/25 Entered by: Yeimy Metcalf RN on 05/26/25 1120 Report Signed by: Yeimy Metcalf RN on 05/27/25 1550 <<Signature on File>> <Electronically signed by Yeimy Metcalf RN> Co-Signed by: on CASE MANAGEMENT DAILY NOTE Observed: 3:50 PM Status: F Source: [facility] Case Management Patient: DIONNA CONCEPCION [address] : 1975 [place], [place] [address] Location: [address] [place] [address] Unit #: [id number] Case Management Daily Note Yeimy Metcalf RN Service Date: 05/23/25 Case Mgmt Daily Note - Plan of Care Wood Drilling Machine Operator Agrees with Attending and Consult Plan: Yes - Patient Preferences AND Goals What is the patient's preference?: New SNF Recommended acute discharge goals: New SNF - Hospital Stay Days Day 1 Comment: 05/11 - Spoke with patient at bedside. Patient has Pavan Huynh. PCP is Pam Camara. director of player personnel is his father, Dionna. [facility]acy [facility]. Denies services, DME. He is independent of ADLS and drives. He lives with his brother and father in a 1 story home with no steps to enter. Denies LW/DPOA. Per primary nurse, Jenni, she states that EMS reported that family stated patient has been depressed and having trouble with his left side weakness from his stroke 2 months ago. Also states he has been falling at home. Wood Drilling Machine Operator: Ana Snyder, RN Day 2 Comment: 05/12 - Spoke with pt. MRI completed and pending results. Neuro following. PT/OT ordered and recommended IPR. Rehab consulted to review case and waiting on response. Wood Drilling Machine Operator: Shelbi Jackson Day 3 Comment: 05/13 Dispo pending medical course. IPR following, c/s placed 05/12. MRI B (-) for acute CVA. WBC 42.9. Lactic 3.7. BC/UA/Sputum Cx. IV Rocephin/IVF. PT/OT. Wood Drilling Machine Operator: Jimena Carcamo, RN Day 4 Comment: 05/14: Patient transferred to ICU overnight. Intubated. PEEP 5. FiO2 40%. Propofol. Versed. Levo. Vaso. IVP Solu Cortef QID. Seizure precautions. WBC 36.5. 7/8 blood cultures pending. IV unasyn Q6. ID following. MRCP today. Surgery following. SW d/t alcohol abuse. Needs TBD pending medical medical course. Wood Drilling Machine Operator: Sonja Mcmahan Day 5 Comment: 05/15: Patient remains intubated. PEEP 5. FiO2 30%. Versed. Levo. IVP Solu Cortef QID. IV ampicillin Q6. WBC 25.3. /9 sputum positive. 05/13 blood cultures negative to date. GI following, ERCP today. Surgery following. ID following. SW following d/t alcohol abuse. Needs TBD pending medical course. Wood Drilling Machine Operator: Sonja Mcmahan Day 6 Comment: 05/16: Patient remains intubated. PEEP 5. FiO2 30%. IVP Solu Cortef QID. LR @ 50. ID following. WBC 9.5. IV ampicillin Q6. Hgb 8.8. Needs TBD pending medical course and therapy recs post extubation. Wood Drilling Machine Operator: Sonja Mcmahan Day 9 Comment: 05/19 Most recent CIWA 5. Daughter wanting SNF placement per previous CM. PTOT most recent recs IPR. Per nursing documentation, pt not alert and oriented. CM and CHECKER LOADER will speak with daugther further about DC planning. Pt will need a precert if SNF is planned. Currently on Unasyn per ID,Augmentin when stable or at the time of discharge. *Per [facility], they are following to see if pt is appropriate for IPR placement at DC. Message left for Daughter Maria Fernanda per primary nurse request. *No return call from daughter to CM. Per nursing staff daughter called the floor with concerns about DC planning. Email sent to daughter to discuss DC planning per daughters request. *email returned from daughter with SNF choices, [facility]- in [place], [place]. [facility]- [place], [place]. [facility]- in [place], [place]. *[employer] attempting to get information from daughter/pt brother for intermodal owner operator truck driver PAUL screening. Wood Drilling Machine Operator: Yeimy Metcalf, RN Comment: 05/20 Email this AM from daughter states she is interested in SNF facilities closer to a middle point for her/siser and pt dad/brother so they can all visit pt. Daughter is requesting a family meeting for this wednesday 05/23 at 11am to discuss placement options. Pt will require precert once a facility is obtained. Wood Drilling Machine Operator: Yeimy Metcalf, RN Comment: 05/21 Psych consult placed per attending. EEG ordered per neurology, possible LP per neurology notes. ID following, Unasyn active until 05/26. Telesitter present in room. Pt remains confused. [employer] attempting tank terminal gauger PAUL krunal with family. SNF choices given by daughter to CM and CHECKER LOADER in [place] and [place]. CHECKER LOADER working on placement. Awaiting psych consult to review further placement barriers. Wood Drilling Machine Operator: Yeimy Metcalf, RN Comment: 05/22 SW is working with patients daughter for placement note reads dc planning with pt daughter through email. Pt daughter planning to be at [facility] tomorrow for family meeting. Pt daughter would like to continue looking for SNF at [facility]. Pt evaluated by telepsych and recs for outpt services. SW faxed clinical referral to [facility] in [place] for review. Wood Drilling Machine Operator: Beverly Mckeon, RN Comment: 05/23 Family meeting at the bedside with attending, Palliative Care PROGRAM TECHNICIAN, CM and CHECKER LOADER. Medical questions answered per attending. CM and CHECKER LOADER spoke about DC planning/placement options/barriers. CHECKER LOADER sending clinicals to [facility] and [facility] to check on placement avalibility. Per [place], PAUL screen complete and pending number provided to CHECKER LOADER. CM and CHECKER LOADER attempting [facility]p placement. Family requesting to speak with community service manager/administration about concerns with pt care/complaints. CM spoke with [employer] x2 to relay information. Email sent to community service manager as she is off to follow up with concerns once back in office. Wood Drilling Machine Operator: Yeimy Metcalf, RN - Respiratory Equipment Does the patient use/have any of these devices at home?: N/A - Community Services Substance Use Screening: Initiated - * L * Length of Stay LOS (Including day of Admission and Discharge): 12 LOS Score: 5 - * A * Acuity on Admission ER Provider if admitted from ER (view): [email or web address] Was patient admitted to hospital via Emergency Dept? Score: 3 - * C * Comorbidities Select All Conditions that Apply: Cerebral Disease (Any previous stroke or transient ischemic attack) Comorbidities Total Score: 1 - * E * Emergency Department Visits # of ER visits,6mos prior to admit,excl this admits ER visit: 0 Enter this number or 4 (whichever is smaller): 0 - LACE SCORE LACE Score: 9 - ANTICIPATED DISCHARGE Anticipated Discharge Date: 05/23/25 Entered by: Yeimy Metcalf RN on 05/23/25 1124 Report Signed by: Yeimy Metcalf RN on 05/27/25 1550 <<Signature on File>> <Electronically signed by Yeimy Metcalf RN> Co-Signed by: on CASE MANAGEMENT DAILY NOTE Observed: 3:50 PM Status: F Source: [facility] Case Management Patient: DIONNA CONCEPCION [address] : 1975 [place], [place] [address] Location: [phone] Unit #: [id number] Case Management Daily Note Yeimy Metcalf RN Service Date: 05/21/25 Case Mgmt Daily Note - Plan of Care Wood Drilling Machine Operator Agrees with Attending and Consult Plan: Yes - Hospital Stay Days Day 1 Comment: 05/11 - Spoke with patient at bedside. Patient has Pavan Fierror. PCP is Pam Camara. director of player personnel is his father, Dionna. Pharmacy is [facility] [address] Denies services, DME. He is independent of ADLS and drives. He lives with his brother and father in a 1 story home with no steps to enter. Denies LW/DPOA. Per primary nurse, Jenni, she states that EMS reported that family stated patient has been depressed and having trouble with his left side weakness from his stroke 2 months ago. Also states he has been falling at home. Wood Drilling Machine Operator: Ana Snyder, RN Day 2 Comment: 05/12 - Spoke with pt. MRI completed and pending results. Neuro following. PT/OT ordered and recommended IPR. Rehab consulted to review case and waiting on response. Wood Drilling Machine Operator: Shelbi Jackson Day 3 Comment: 05/13 Dispo pending medical course. IPR following, c/s placed 05/12. MRI B (-) for acute CVA. WBC 42.9. Lactic 3.7. BC/UA/Sputum Cx. IV Rocephin/IVF. PT/OT. Wood Drilling Machine Operator: Jimena Carcamo RN Day Comment: 05/14: Patient transferred to ICU overnight. Intubated. PEEP 5. FiO2 40%. Propofol. Versed. Levo. Vaso. IVP Solu Cortef QID. Seizure precautions. WBC 36.5. 7/8 blood cultures pending. IV unasyn Q6. ID following. MRCP today. Surgery following. SW d/t alcohol abuse. Needs TBD pending medical medical course. Wood Drilling Machine Operator: Sonja Mcmahan Day Comment: 05/15: Patient remains intubated. PEEP 5. FiO2 30%. Versed. Levo. IVP Solu Cortef QID. IV ampicillin Q6. WBC 25.3. 7/9 sputum positive. 05/13 blood cultures negative to date. GI following, ERCP today. Surgery following. ID following. SW following d/t alcohol abuse. Needs TBD pending medical course. Wood Drilling Machine Operator: Sonja Mcmahan Day 6 Comment: 05/16: Patient remains intubated. PEEP 5. FiO2 30%. IVP Solu Cortef QID. LR @ 50. ID following. WBC 9.5. IV ampicillin Q6. Hgb 8.8. Needs TBD pending medical course and therapy recs post extubation. Wood Drilling Machine Operator: Sonja Mcmahan Day 9 Comment: 05/19 Most recent CIWA 5. Daughter wanting SNF placement per previous CM. PTOT most recent recs IPR. Per nursing documentation, pt not alert and oriented. CM and CHECKER LOADER will speak with daugther further about DC planning. Pt will need a precert if SNF is planned. Currently on Unasyn per ID,Augmentin when stable or at the time of discharge. *Per [facility], they are following to see if pt is appropriate for IPR placement at DC. Message left for Daughter Maria Fernanda per primary nurse request. *No return call from daughter to CM. Per nursing staff daughter called the floor with concerns about DC planning. Email sent to daughter to discuss DC planning per daughters request. *email returned from daughter with SNF choices, [facility]- in [place], [place]. [facility]- [place], [place]. [facility]- in [place], [place]. *[employer] attempting to get information from daughter/pt brother for intermodal owner operator truck driver PAUL screening. Wood Drilling Machine Operator: Yeimy Metcalf, RN Comment: 05/20 Email this AM from daughter states she is interested in SNF facilities closer to a middle point for her/siser and pt dad/brother so they can all visit pt. Daughter is requesting a family meeting for this wednesday 05/23 at 11am to discuss placement options. Pt will require precert once a facility is obtained. Wood Drilling Machine Operator: Yeimy Metcalf, RN Day Comment: 05/21 Psych consult placed per attending. EEG ordered per neurology, possible LP per neurology notes. ID following, Unasyn active until 05/26. Telesitter present in room. Pt remains confused. [employer] attempting tank terminal gauger PAUL krunal with family. SNF choices given by daughter to CM and CHECKER LOADER in [facility]. CHECKER LOADER working on placement. Awaiting psych consult to review further placement barriers. Wood Drilling Machine Operator: Yeimy Metcalf, RN - Respiratory Equipment Does the patient use/have any of these devices at home?: N/A - Community Services Substance Use Screening: Initiated - * L * Length of Stay LOS (Including day of Admission and Discharge): 10 LOS Score: 5 - * A * Acuity on Admission ER Provider if admitted from ER (view): [email or web address] Was patient admitted to hospital via Emergency Dept? Score: 3 - * C * Comorbidities Select All Conditions that Apply: Cerebral Disease (Any previous stroke or transient ischemic attack) Comorbidities Total Score: 1 - * E * Emergency Department Visits # of ER visits,6mos prior to admit,excl this admits ER visit: 0 Enter this number or 4 (whichever is smaller): 0 - LACE SCORE LACE Score: 9 - ANTICIPATED DISCHARGE Anticipated Discharge Date: 05/21/25 Entered by: Yeimy Metcalf RN on 05/21/25 1433 Report Signed by: Yeimy Metcalf RN on 05/27/25 7250 <<Signature on File>> <Electronically signed by Yeimy Metcalf RN> Co-Signed by: on CASE MANAGEMENT DAILY NOTE Observed: 3:49 PM Status: F Source: [facility] Case Management Patient: DIONNA CONCEPCION [address] : 1975 [place], [place] [address] Location: [address] [place] [address] [id number] Management Daily Note Yeimy Metcalf RN Service Date: 05/27/25 Case Mgmt Daily Note - Plan of Care Wood Drilling Machine Operator Agrees with Attending and Consult Plan: Yes - Patient Preferences AND Goals What is the patient's preference?: Services to be Determined Recommended acute discharge goals: Services to be Determined - Hospital Stay Days Day 1 Comment: 05/11 - Spoke with patient at bedside. Patient has Pavan Huynh. PCP is Pam Camara. director of player personnel is his father, Dionna. [facility]acy [facility]. Denies services, DME. He is independent of ADLS and drives. He lives with his brother and father in a 1 story home with no steps to enter. Denies LW/DPOA. Per primary nurse, Jenni, she states that EMS reported that family stated patient has been depressed and having trouble with his left side weakness from his stroke 2 months ago. Also states he has been falling at home. Wood Drilling Machine Operator: Ana Snyder, RN Day 2 Comment: 05/12 - Spoke with pt. MRI completed and pending results. Neuro following. PT/OT ordered and recommended IPR. Rehab consulted to review case and waiting on response. Wood Drilling Machine Operator: Shelbi Jackson Day 3 Comment: 05/13 Dispo pending medical course. IPR following, c/s placed 05/12. MRI B (-) for acute CVA. WBC 42.9. Lactic 3.7. BC/UA/Sputum Cx. IV Rocephin/IVF. PT/OT. Wood Drilling Machine Operator: Jimena Carcamo, RN Day 4 Comment: 05/14: Patient transferred to ICU overnight. Intubated. PEEP 5. FiO2 40%. Propofol. Versed. Levo. Vaso. IVP Solu Cortef QID. Seizure precautions. WBC 36.5. 05/13 blood cultures pending. IV unasyn Q6. ID following. MRCP today. Surgery following. SW d/t alcohol abuse. Needs TBD pending medical medical course. Wood Drilling Machine Operator: Snoja Mcmahan Day 5 Comment: 05/15: Patient remains intubated. PEEP 5. FiO2 30%. Versed. Levo. IVP Solu Cortef QID. IV ampicillin Q6. WBC 25.3. 05/14 sputum positive. 05/13 blood cultures negative to date. GI following, ERCP today. Surgery following. ID following. SW following d/t alcohol abuse. Needs TBD pending medical course. Wood Drilling Machine Operator: Sonja Mcmahan Day 6 Comment: 05/16: Patient remains intubated. PEEP 5. FiO2 30%. IVP Solu Cortef QID. LR @ 50. ID following. WBC 9.5. IV ampicillin Q6. Hgb 8.8. Needs TBD pending medical course and therapy recs post extubation. Wood Drilling Machine Operator: Sonja Mcmahan Day 9 Comment: 05/19 Most recent CIWA 5. Daughter wanting SNF placement per previous CM. PTOT most recent recs IPR. Per nursing documentation, pt not alert and oriented. CM and CHECKER LOADER will speak with daugther further about DC planning. Pt will need a precert if SNF is planned. Currently on Unasyn per ID,Augmentin when stable or at the time of discharge. *Per [facility], they are following to see if pt is appropriate for IPR placement at DC. Message left for Daughter Maria Fernanda per primary nurse request. *No return call from daughter to CM. Per nursing staff daughter called the floor with concerns about DC planning. Email sent to daughter to discuss DC planning per daughters request. *email returned from daughter with SNF choices, [facility] in [place], [place]. [facility]- [place], [place]. [facility]- in [place], [place]. *[employer] attempting to get information from daughter/pt brother for jail PAUL screening. Wood Drilling Machine Operator: Yeimy Metcalf, RN Comment: 05/20 Email this AM from daughter states she is interested in SNF facilities closer to a middle point for her/siser and pt dad/brother so they can all visit pt. Daughter is requesting a family meeting for this wednesday 05/23 at 11am to discuss placement options. Pt will require precert once a facility is obtained. Wood Drilling Machine Operator: Yeimy Metcalf, RN Comment: 05/21 Psych consult placed per attending. EEG ordered per neurology, possible LP per neurology notes. ID following, Unasyn active until 05/26. Telesitter present in room. Pt remains confused. [employer] attempting tank terminal gauger PAUL krunal with family. SNF choices given by daughter to CM and CHECKER LOADER in [place] and [place]. CHECKER LOADER working on placement. Awaiting psych consult to review further placement barriers. Wood Drilling Machine Operator: Yeimy Metcalf, RN Comment: 05/22 SW is working with patients daughter for placement note reads dc planning with pt daughter through email. Pt daughter planning to be at [facility] tomorrow for family meeting. Pt daughter would like to [facility] looking for SNF [facility]. Pt evaluated by telepsych and recs for outpt services. KAYLENE faxed clinical referral to [facility] in [place] for review. Wood Drilling Machine Operator: Beverly Mckeon, RN Comment: 05/23 Family meeting at the bedside with attending, Palliative Care PROGRAM TECHNICIAN, CM and CHECKER LOADER. Medical questions answered per attending. CM and CHECKER LOADER spoke about DC planning/placement options/barriers. CHECKER LOADER sending clinicals to [facility] and [facility] to check on [facility] avalibility. [facility], PAUL screen complete and pending number provided to CHECKER LOADER. CM and CHECKER LOADER attempting tank terminal gauger placement. Family requesting to speak with community service manager/administration about concerns with pt care/complaints. CM spoke with [employer] x2 to relay information. Email sent to community service manager as she is off to follow up with concerns once back in office. Wood Drilling Machine Operator: Yeimy Metcalf, RN Comment: 05/26 Telesitter removed by primary RN over the weekend. Telesitter remains out of the room at this time. Per CHECKER LOADER, still sending referrals and waiting on accepting facility. Pt also PAUL pending for tank terminal gauger placement. Wood Drilling Machine Operator: Yeimy Metcalf, RN Comment: 05/27 Per CHECKER LOADER, facilities requested by daughter in [place] are continuing to review. Precert to start once accepted. Wood Drilling Machine Operator: Yeimy Metcalf, RN - Respiratory Equipment Does the patient use/have any of these devices at home?: N/A - Community Services Substance Use Screening: Initiated - * L * Length of Stay LOS (Including day of Admission and Discharge): 16 LOS Score: 7 - * A * Acuity on Admission ER Provider if admitted from ER (view): RGMAXO Was patient admitted to hospital via Emergency Dept? Score: 3 - * C * Comorbidities Select All Conditions that Apply: Cerebral Disease (Any previous stroke or transient ischemic attack) Comorbidities Total Score: 1 - * E * Emergency Department Visits # of ER visits,6mos prior to admit,excl this admits ER visit: 0 Enter this number or 4 (whichever is smaller): 0 - LACE SCORE LACE Score: 11 - ANTICIPATED DISCHARGE Anticipated Discharge Date: 05/23/25 Entered by: Yeimy Metcalf RN on 05/27/25 1052 Report Signed by: Yeimy Metcalf RN on 05/27/25 1549 <<Signature on File>> <Electronically signed by Yeimy Metcalf RN> Co-Signed by: on PROGRESS NOTE - HOSPITALIST Observed: 3:42 PM Status: F Source: [facility] Records Patient: DIONNA CONCEPCION [address]. : 1975 [place], [place] [address] Location: [phone] Unit #: [id number] Progress Note - Hospitalist Rose Sanchez MD Service Dt/Tm: 05/27/25 0955 ADDENDUM: DC Freeman catheter Addendum Entered by: Rose Sanchez MD on 05/27/25 at 1542 Addendum Signed by: Rose Sanchez MD on 05/27/25 1543 <<Signature on File>> <Electronically signed by Rose Sanchez MD> Addendum Signed by: on Assessment/Plan Assessment/Plan (1) Wernickes encephalopathy: Status: Acute Plan: Patient with history of alcohol abuse and previous stroke with residual left- sided weakness (right MCA stroke in 01/28) presented with generalized weakness and confusion. With metabolic encephalopathy likely secondary to electrolyte disturbance and sepsis CT head-no acute infarct. MRI is suspicious for Warnicke's encephalopathy. Neurology consult appreciated. Continue IV thiamine, multivitamin and folic acid. Continue aspirin, Plavix and high-dose of Lipitor (monitoring LFT). Psychiatry consult noted-no plan to start psychiatric medication for now. EEG-no epileptiform waves. Repeated MRI on 05/13 report reviewed, chronic changes. Area of encephalomalacia consistent with remote infarction. There is subtle periaqueductal ward enhancement. There has been improvement since prior exam, however pattern can be seen in the setting of thiamine deficiency/Wernicke''s Korsakoff in the correct clinical setting. May consider MINI. Neurologist recommendation appreciated. can resume aspirin no more epistaxis, continue thiamine daily., Cognitive evaluation neurology. Delirium precautions: Blinds open during the day, closed at night, frequent reorientation, minimize nighttime interruptions as possible avoid benzodiazepines, opioid pain medications, and anticholinergic medications (2) Sepsis: Status: Resolved Qualifiers: Sepsis acute organ dysfunction status: unspecified Sepsis type: sepsis due to unspecified organism Qualified Code(s): A41.9 - Sepsis, unspecified organism Plan: Presented to the emergency room on 05/11 complaining of generalized weakness and fatigue Patient has residual left-sided weakness from previous stroke with lateral gaze palsy Hospital course complicated by sepsis secondary to acute cholelithiasis with concern about alcohol withdrawal with delirium tremens and Warnicke cephalopathy. Transferred to the ICU, intubated 05/14 to 7/11. Was on vasopressor General surgery consulted small bowel obstruction treated NG tube. Possible aspiration General Surgery ID and GI on board (3) Fatigue: Status: Acute Qualifiers: Fatigue type: unspecified Qualified Code(s): R53.83 - Other fatigue Plan: Presented to the emergency room on 05/11 complaining of generalized weakness and fatigue Continue PT/OT. (4) Left-sided weakness: Status: Chronic Plan: Patient has residual left-sided weakness from previous stroke in 01/28 (right MCA stroke). Echo-no PFO. Continue PT/OT. (5) History of right MCA stroke: Status: Chronic Plan: As above. (6) Gaze palsy: Status: Chronic Plan: 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 in January (7) Dehydration: Status: Resolved Plan: Received IV hydration (8) Fever: Status: Resolved Qualifiers: Fever type: unspecified Qualified Code(s): R50.9 - Fever, unspecified Plan: Patient had a fever. LFT was abnormal concerning for cholangitis. GI consulted-underwent ERCP with extraction of the gallstone. ID consulted appreciated. CT abdomen-05/13/2025 suggestive of diverticulitis. Treat for diverticulitis with IV Unasyn (or oral Augmentin) for total of 14 days (last date will be 05/26/2025). (9) Leukocytosis: Status: Resolved Qualifiers: Leukocytosis type: bandemia Qualified Code(s): D72.825 - Bandemia (10) Choledocholithiasis: Status: Resolved (11) CVA (cerebral vascular accident): Status: Chronic Qualifiers: CVA mechanism: unspecified Qualified Code(s): I63.9 - Cerebral infarction, unspecified Plan: Old infarct in MCA territory per imaging (12) Sinus tachycardia: Status: Resolved Plan: Treated and resolved (13) Alcoholism: Status: Chronic Plan: CIWA scale (14) On mechanically assisted ventilation: Status: Resolved Plan: Required intubation due to alteration in mental status Extubated 05/16/25 (15) Metabolic acidosis: Status: Resolved Plan: Treated and resolved (16) Alcohol withdrawal: Status: Ruled-out Qualifiers: Complication of substance-induced condition: with delirium Qualified Code(s): F10.931 - Alcohol use, unspecified with withdrawal delirium Plan: Out of the window MVI, thiamine, folic acid (17) GI bleed: Status: Ruled-out Qualifiers: GI bleed type/associated pathology: unspecified gastrointestinal hemorrhage type Qualified Code(s): K92.2 - Gastrointestinal hemorrhage, unspecified Plan: No evidence of GI bleed during ERCP 05/15/2025 PPI daily VTE prophylaxis (18) Septic shock: Status: Resolved Plan: Treated for septic shock with resolution Required vasopressor for hypotension (19) Urinary retention: Status: Acute Plan: Freeman catheter placed for urinary retention. Voiding trial today. (20) Hypertension: Status: Acute Qualifiers: Hypertension type: primary hypertension Qualified Code(s): I10 - Essential (primary) hypertension Plan: Blood pressure was elevated, most likely diastolic. At home patient on amlodipine 10 mg daily Amlodipine 2.5 mg started. Blood pressure improved Plan 05/11/2025: Admission:??? a 49-year-old male with a history of alcohol abuse and previous CVA, was admitted to [facility] with complaints of excessive fatigue and generalized weakness. Initial CT head suggested a subacute right MCA infarct. Labs showed hypokalemia and elevated troponin. He was started on aspirin and electrolyte replacement. Neurology was consulted, and an MRI was ordered. 05/12/2025: Neurology Evaluation:???MRI confirmed old cortical gyral ischemic infarcts. Neurology recommended continuing aspirin and statin therapy. Echocardiography showed normal LV function with no PFO. * Infectious Disease Consultation:???Patient developed leukocytosis, and sepsis protocol was initiated. Blood cultures were obtained, and Rocephin was started switched to Zosyn 05/13/2025: WBC count increased significantly, and the patient developed fever and tachycardia. ID switched to Unasyn. CT abdomen/pelvis suggested diverticulitis and chronic pancreatitis. * Critical Care Consultation:???Due to worsening clinical status, including tachypnea and altered mental status, the patient was transferred to the ICU. For possible alcohol withdrawal , DTs, Warnicke encephalopathy 05/14/2025:???The patient was intubated for airway protection due to altered mental status and suspected aspiration. MRCP showed choledocholithiasis, and ERCP was planned. * General surgery was consulted for small bowel obstruction, and an NG tube was placed. 05/15/2025: ERCP Procedure:???Successful sphincterotomy and stone extraction were performed. The patient remained in the ICU for continued monitoring and management of sepsis and respiratory failure. 05/16/2025: he patient was extubated and showed signs of clinical improvement. He remained on antibiotics and supportive care. 05/17/2025:The patient was stable, with resolved sepsis and improved hemodynamics. He was transferred out of the ICU. 05/20/2025: Continued management of Wernicke's encephalopathy with thiamine and multivitamins. The patient showed gradual improvement in mental status. 05/22/2025: Psychiatry Consultation:???Evaluated for encephalopathy and alcohol withdrawal delirium. Recommendations included continuing thiamine and outpatient psychiatric follow-up. * Palliative Care Consultation:???Discussed goals of care with family. The patient was oriented to self and partially to the situation. Family expressed interest in rehabilitation or long-term care placement. Continue to be full code 05/23/2025: Repeated MRI:???A follow-up MRI of the brain was performed, showing diffuse involutional changes and chronic microvascular deep white matter disease. There was an area of encephalomalacia and gliosis along the right inferior frontal gyrus, consistent with remote infarct. Subtle FLAIR and T2 hyperintensity were noted along the ventricular surface of the 3rd ventricle, periaqueductal ward, and mamillary bodies, suggestive of thiamine deficiency/Wernicke's Korsakoff syndrome. Improvement was noted since the prior exam. Aspirin and Plavix held due to nausea 05/24/2025: Patient was lethargic, aggressive and refused examination in the morning however mentation improved after physical therapist worked with the patient. 05/25 Awake and alert. Engaging in conversation. AO x 2. Episode of pneumonia labs. He thought he is in different hospital ;however he remembered when i told him. He is aware of month and year 05/26 awake and alert. Remember our discussion yesterday. Can resume aspirin today as per neurology recommendation. Diastolic blood pressure elevated we can resume amlodipine 2.5 mg daily and monitor vitals 05/27. Awake and alert. Aspirin restarted, no more discussed. Outpatient follow- up recommended by neurology. Blood pressure better controlled Discharge planning to a halfway facility for continued recovery and rehabilitation. PreCert needed DVT prophylaxis: Lovenox Current Code Status AND Diet: 05/11/25 18:30 Code Status Routine Resuscitation Status: Full Code Code Status Order Placed: Code Status Ordered 05/11/25 at 1830 05/17/25 10:31 [facility] Diet Texture: Regular Fluid Restrictions?: No Discussed Patient's Care With: Nurse and Case Management Subjective Subjective: Primary Care Provider: Tay Camara MD Chief Complaint: RT MCA INFARCT/LT SIDED WEAKNESS Patient seen examined this morning. Sleeping. He had arousable. Awake and alert. Pending placement Patient Status AND Estimated DC Date Patient Registration Status: Inpatient Objective Physical Exam: GEN: No acute distress, lying comfortably HEENT: No lymphadenopathy, neck is supple, left gaze palsy Chest: Bilateral air entry, no wheezing or rhonchi CVS: S1 and S2, no gallop or murmur Abdomen: Soft, normal bowel sound, no organomegaly Extremities: No edema bilateral lower extremities. Weakness. Left extremity Social determinants of health completed per CM, reviewed. Constitutional: Last Vital Signs Temp Pulse Resp BP Pulse Ox O2 Flow RateFiO2 98.3 F 90 16 130/78 98 5 40 05/27/25 08:05/27/25 08:05/27/25 08:05/27/25 08:05/27/25 08:05/21/25 07:05/16/25 16: 00 00 00 00 00 53 30 Intake and Output Intake Total 3340 734.61 Output Total 1775 1700 Balance 1565 -965.39 Admitting (IV Pump) Weight 61.4 kg Actual Weight (Kg) 72.5 kg Data Labs: Phosphorus 6.4 H D WBC 15.0 H RBC 2.94 L Hgb 9.8 L Hct 28.8 L MCV 97.9 H MCH 33.2 H MCHC 33.9 RDW 17.9 H Plt Count 440 H Sodium 138 Potassium 4.0 Chloride 104 Carbon Dioxide 27 Anion Gap 7 BUN 11 Creatinine 0.76 Calcium 9.30 The last 24 hours of labs have been reviewed. Imaging: I have reviewed the diagnostic images in the EMR. Medications and Comanagement: Medications reviewed separately. Pressure Injury/Pressure Area of Concern Sacrum: Site identified as: Area of Concern Provider Reviewed: Management of wounds per consulted wound provider Entered by: Rose Sanchez MD on 05/27/25 0946 Report Signed by: Rose Sanchez MD on 05/27/25 1330 <<Signature on File>> <Electronically signed by Rose Sanchez MD> Report Signed by: on CBC WITHOUT DIFFERENTIAL Collected: 4:56 AM Status: F Source: [facility] TYPE CODE TESTS RESULT OUT OF RANGE REFERENCE UNITS LAB L100.0100 WBC 15.0 High 4.4-10.5 th/cmm LAB L100.0300 RBC 2.94 Low 4.50-6.00 mil/cmm LAB L100.0400 Hemoglobin 9.8 Low 13.5-16.5 gm/dL LAB L100.0500 Hematocrit 28.8 Low 40.0-49.0 % LAB L100.0600 MCV 97.9 High 80-97 CU DEIDRA LAB L100.0700 MCH 33.2 High 27.5-33.0 PG LAB L100.0800 MCHC 33.9 Normal 33.0-36.0 gm/dL LAB L100.0900 RDW 17.9 High 12.0-16.0 % LAB L100.1000 Platelet Count 440 High 150-400 th/cmm Performed By: #### L100.0050 #### Main Laboratory ([facility]) [address] [place] [address] Regan Sahni MD RENAL FUNCTION PANEL Collected: 05/27/2025 4:56 AM S tatus: F Source: [facility] TYPE CODE TESTS RESULT OUT OF RANGE REFERENCE UNITS LAB L400.1400 Sodium 138 Normal 135-145 mEq/L LAB L400.1500 Potassium 4.0 Normal 3.6-5.0 mEq/L LAB L400.1600 Chloride 104 Normal 101-111 mEq/L LAB L400.1700 Carbon Dioxide 27 Normal 21-32 mEq/L LAB L400.1800 Anion Gap 7 Normal 4-12 LAB L400.1820 Glucose 96 Normal 70-110 mg/dL Result Comment: *This refere nce range applies to fasting specimens only. LAB L400.1835 BUN 11 Normal 7-20 mg/dL LAB L400.1840 Creatinine 0.76 Normal 0.60-1.30 mg/dL LAB L400.1845 GFR Calculation > 60 Normal Result Comment: Chronic Kidn ey Disease stages by NKDF Stage eGFR I >90 II 60-89 III 30-59 IV 15-29 V <15 or dialysis Note: Information regarding the eGFR equation used can be found at https://www.kidney.org/fhaj-jtwnt-mvyvyuir. AGE(years) AVERAGE GFR 50-59 93 ml/min/1.73 square meters Note:This result is normalized to 1.73 square meter body surface area. Height and weight are not factored. LAB L400.2100 Calcium 9.30 Normal 8.8-10.5 mg/dL LAB L400.2120 Albumin 3.2 Low 3.5-5.0 g/dL LAB L400.2200 Phosphorus 6.4 High 2.4-4.7 mg/dL Result Comment: Delta: 5.1 o n 05/26/25 Performed By: #### L400.0410 #### Main Laboratory ([facility]) [address] [place] [address] Regan Sahni MD PROGRESS NOTE NEUROLOGY Observed: 2024 6:28 PM Status: F Source: [facility] Records Patient: DIONNA CONCEPCION [address] : 1975 [place], [place] [address] Location: [phone] [id number] Note Neurology Bradley Blanchard MD Service Dt/Tm: 05/26/251824 Assessment/Plan (1) Wernickes encephalopathy: Status: Acute Plan: [employer] [facility] Tele[facility]urology Consult Services Routine Consult Follow-Up Patient Name: Dionna Concepcion Date of : 1975 Identification Number: Date of Service: 05/26/2025 17:28:32 Diagnosis ??? G93.41 - Encephalopathy Metabolic ??? E51.2 - Wernicke encephalopathy Impression 49-year-old man with past medical history of prior stroke with residual left- sided weakness, alcohol use admitted to the hospital with generalized weakness and confusion he had MRI of the brain done that shows chronic encephalomalacia but also shows some findings concerning for thiamine deficiency Wernicke's encephalopathy. He was started on thiamine and symptoms have improved. He had EEG done on 05/22/2025 that was normal. Recommendations: Aspirin and Plavix were held due to epistaxis when it is okay with primary team recommend to start aspirin 81 mg daily BP goal normotension Continue home dose of statin Thiamine 100 mg daily PT/OT eval Need cognitive evaluation as outpatient No further inpatient neurological workup. Follow-up with neurology as outpatient in 3 to 4 weeks after hospital discharge Reconsult neurology services if further questions. Our recommendations are outlined below Nursing Recommendations : Delirium precautions: Blinds open during the day, closed at night, frequent reorientation, minimize nighttime interruptionsWhen possible avoid benzodiazepines, opioid pain medications, and anticholinergic medications DVT Prophylaxis : Choice of Primary Team Disposition : Neurology will follow Subjective Patient was seen today for follow-up. No acute events overnight. He is awake alert oriented to self date of . He is not oriented to current date, is following commands. He is on thiamine for Wernicke's encephalopathy he does have history of prior stroke with residual left-sided weakness. Plavix and aspirin were held on current admission due to epistaxis. As per nurse staff no further episodes of nosebleed. Imaging MRI of the brainDiffuse involutional changes, chronic microvascular deep white matter disease. 2. There is a area of encephalomalacia and gliosis along the RIGHT inferior frontal gyrus consistent with remote infarct appearance similar remote ischemic change along the lateral convexity of the RIGHT occipital temporal transition zone. 3. There is a subtle area of DWI hyperintensity along the ventral surface of the murray however no matching FLAIR or ADC abnormality, and likely T2 shine through. 4. No mass, hemorrhage, or acute territorial infarct.. 5. Subtle FLAIR and T2 hyperintensity along the ventricular surface of the 3rd ventricle, periaqueductal ward, as well as the mamillary bodies. There is subtle periaqueductal ward enhancement. There has been improvement since prior exam, however pattern can be seen in the setting of thiamine deficiency/Wernicke''s Korsakoff in the correct clinical setting.. CTA head and neck no large vessel occlusion or hemodynamically significant stenosis Echocardiogram ejection fraction 60 to 65% no PFO Labs White blood cell count 13.5 hemoglobin 10.1 platelet count 440 sodium 139 creatinine 0.66 A1c 5 AST 27 ALT 35 urine toxicology positive for cannabinoids Examination BP(118/79), Pulse(89), Temp(98.9), Neuro Exam: General: Awake alert oriented to self, hospital date of not oriented to current date, following commands Speech: Dysarthric: Language: Intact: Face: Symmetric: Extraocular Movements: Intact: Motor Exam: Left arm drift without touching the bed No drift in left leg No drift in right arm No drift in right leg Coordination: Intact: This consult was conducted in real time using interactive audio and video technology. Patient was informed of the technology being used for this visit and agreed to proceed. Patient located in hospital and provider located at home/office setting. Telehealth Neurology consultation was provided. I spent minutes providing telehealth care. This includes time spent for face to face visit via telemedicine, review of medical records, imaging studies and discussion of findings with providers, the patient and/or family. Dr Bradley Blanchard [facility] For Inpatient follow-up with [facility] physician please call [facility] at . As we are not an outpatient service for any post hospital discharge needs please contact the hospital for assistance. If you have any questions for the [facility] physicians or need to reconsult for clinical or diagnostic changes please contact us via [facility] at (2) Sepsis: Status: Resolved Qualifiers: Sepsis type: sepsis due to unspecified organism Sepsis acute organ dysfunction status: unspecified Qualified Code(s): A41.9 - Sepsis, unspecified organism (3) Fatigue: Status: Acute Qualifiers: Fatigue type: unspecified Qualified Code(s): R53.83 - Other fatigue (4) Left-sided weakness: Status: Chronic (5) History of right MCA stroke: Status: Chronic (6) Gaze palsy: Status: Chronic (7) Dehydration: Status: Resolved (8) Fever: Status: Resolved Qualifiers: Fever type: unspecified Qualified Code(s): R50.9 - Fever, unspecified (9) Leukocytosis: Status: Resolved Qualifiers: Leukocytosis type: bandemia Qualified Code(s): D72.825 - Bandemia (10) Choledocholithiasis: Status: Resolved (11) CVA (cerebral vascular accident): Status: Chronic Qualifiers: CVA mechanism: unspecified Qualified Code(s): I63.9 - Cerebral infarction, unspecified (12) Sinus tachycardia: Status: Resolved (13) Alcoholism: Status: Chronic (14) On mechanically assisted ventilation: Status: Resolved (15) Metabolic acidosis: Status: Resolved (16) Alcohol withdrawal: Status: Ruled-out Qualifiers: Complication of substance-induced condition: with delirium Qualified Code(s): F10.931 - Alcohol use, unspecified with withdrawal delirium (17) GI bleed: Status: Ruled-out Qualifiers: GI bleed type/associated pathology: unspecified gastrointestinal hemorrhage type Qualified Code(s): K92.2 - Gastrointestinal hemorrhage, unspecified (18) Septic shock: Status: Resolved (19) Urinary retention: Status: Acute Plan: Plan Objective Hemodynamics: Last Vital Signs Temp Pulse Resp BP Pulse Ox O2 Flow RateFiO2 98.9 F 89 16 118/79 97 5 40 05/26/25 14:05/26/25 14:05/26/25 14:05/26/25 14:05/26/25 14:05/21/25 07:05/16/25 16: 13 13 13 13 13 53 30 Intake and Output Intake Total 826 3340 513.61 Output Total 2900 1775 650 Balance -2074 1565 -136.39 Daily Weight: Admitting (IV Pump) Weight 61.4 kg Actual Weight (Kg) 73 kg Data Labs: Laboratory Results - last 24 hr WBC 13.5 H RBC 2.98 L Hgb 10.1 L Hct 29.3 L MCV 98.3 H MCH 33.8 H MCHC 34.4 RDW 18.3 H Plt Count 440 H Sodium 139 Potassium 4.2 Chloride 107 Carbon Dioxide 25 Anion Gap 7 BUN 11 Creatinine 0.66 GFR Calculation > 60 Random Glucose 85 Calcium 9.50 Phosphorus 5.1 H Albumin 3.3 L Medications and Comanagement: Current medications reviewed and appropriate changes or recommendations have been made. Entered by: Bradley Blanchard MD on 05/26/251824 Report Signed by: Bradley Blanchard MD on 05/26/251827 <<Signature on File>> <Electronically signed by Bradley Blanchard MD> Report Signed by: on SOCIAL WORK DAILY NOTE Observed: 025 3:15 PM Status: F Source: [facility] [employer] Patient: VOJTUSH,DIONNA J [address] : 1975 [place], [place] [address] Location: [phone] Unit #: [id number] Social Work Daily Note Marky Olivo Service Date: 05/26/25 KAYLENE Daily Note - * Psychosocial Assessment * I have reviewed nursing and case management psychosocial information.: Yes - * Hospital Stay Days * Day 1 Note: 05/14/2025: SW c/s for Substance Abuse Screening. Tad Ambetter. CIWA. +tox for cannabinoids on admission. Hx of alcohol abuse. Enecphalopathy. Pt intubated overnight. National Recruiter to follow peripherally to discuss with pt when medically appropriate. Top Case Assembler: Yeimy Shah, BEST WORKER, AUTOMOBILE RENTAL AGENT Day 2 Note: 05/15/2025: SW following for Substance Abuse Screening. Tad Ambetter. CIWA. +tox for cannabinoids on admission. Hx of alcohol abuse- Wernickes Enecphalopathy. Pt remains intubated this date. KAYLENE updated by nursing staff that the pt's family is requesting pt d/c to a SNF in the [place], [place] area when medically ready for d/c. KAYLENE called and discussed this with pt's daughter, Maria Fernanda. Maria Fernanda reports most of the family lives between [place] and [place], so [place] would be a good middle location. KAYLENE briefly explained that pt will need to be able to participate with therapy in order for insurance to approve a SNF OR pt will need to have funds to private pay OR pt will need to have Medicaid. Maria Fernanda would like to see how the pt progresses to determine if it will be a short term or tank terminal gauger placement. Maria Fernanda reports she has not talked with her father in 3 years. Maria Fernanda is unaware of pt's finances and does not know of any POA paperwork that the pt has ever completed. Maria Fernanda stated that the pt is not legally to anyone. Maria Fernanda reports the pt has three living children: Maria Fernanda Glynn PH: [phone], Beverly Concepcion PH: [phone] AND Dionna Jamey PH: [phone]. Maria Fernanda reports Dionna will likely not want to participate in any decision making for the pt. KAYLENE explained that in [place] if there is no POA/Guardian and if pt is not legally , that any decisions will need to be a consensus between all living children. Maria Fernanda voiced understanding. Maria Fernanda would like to review a list of SNFs in [place], [place] to begin reviewing. Maria Fernanda reports her address is [address] [place] [id number]. A list of SNFs within 30 miles of Maria Fernanda's address with quality scores emailed to Maria Fernanda at [email or web address]. KAYLENE requested Maria Fernanda to provide a list of 5-10 choices as pt may be a difficult placement d/t history of alcohol abuse and insurance. D/c planning needs pending medical course. SW to continue following. Top Case Assembler: Yeimy Shah, DENISSE, KARLA Day 3 Note: 05/16/2025: SW following for Substance Abuse Screening. Pavan Huynh. UZIEL. +tox for cannabinoids on admission. Hx of alcohol abuse- Wernickes Enecphalopathy. Pt remains intubated this date. D/c planning needs pending medical course. SW to continue following. Top Case Assembler: Yeimy Shah, DENISSE, KARLA Day 6 Note: 05-19-25 KAYLENE following for SNF/dc planning. JIMBO Crooks emailed pt daughter list of SNF options in [place]. DENISSE Crooks sent referral to [facility] for pt to be screened for PAUL benefit. Pt daughter gave choices of SNFs. Kaylene spoke with admissions of [facility] in [place] and faxed clinical referral to facility. Top Case Assembler: Marky Olivo Day 7 Note: 05-21-25 KAYLENE following for dc planning. DC plan curently pending. SNF referral sent to [facility] in [place] pt first choice and facility unable to accept. Pt daughter possibly wanting SNF in between [place] and [place]. Psych consult ordered. SW will continue to follow. Top Case Assembler: Marky Olivo day 8 Note: 05-22-25 KAYLENE communicated dc planning with pt daughter through email. Pt daughter planning to be at [facility] tomorrow for family meeting. Pt daughter would like to continue looking fo rSNF at dc. Pt evaluated by telepsych and recs for outpt services. KAYLENE faxed clinical referral to [facility] in [place] for review. Top Case Assembler: Marky Olivo day 9 Note: 05-23-25 SW and CM spoke with pt and family at bedside along with pt medical provider. SW and CM discussed LT care options at dc. Pt family continues to be agreeable to SNF. Family is interested in SNF placement residential between [place] and [place]. No preferenc eof facility just something residential for all family. KAYLENE sent referral to [facility] in [place] waiting on facility to review. Clinical referral also faxed to [facility] in [place] for review. Per Critical access hospital application was completed and submitted on 05-22. Top Case Assembler: Marky Olivo 12 Note: 05-26-25 KAYLENE following for SNF placement. KAYLENE sent referrals to [facility] and [facility] in [place]. Per admissions at both facilities they have minimal LT beds available and will review pt referral. KAYLENE emailed pt daughter to update her of dc planning. KAYLENE continuing to follow. Top Case Assembler: Marky Olivo - * Information * Mental Status/Mood: Confused - * Requested Intvs/Referrals * Top Case Assembler I Referrals: Substance Abuse Screening - Community Services/Interventions Substance Use Screening: Initiated - * HEALTHCARE DECISIONS * Living Will: Unknown Durable Power of Cable Splicer Helper for Health Care: No Directive, No SS Referral [facility] DNR Comfort Care: No Directive, No SS Referral [facility] DNR Comfort Care Arrest: No Directive, No SS Referral Entered by: Marky Olivo on 05/26/25 1509 Report Signed by: Marky Olivo on 05/26/25 1515 <<Signature on File>> <Electronically signed by Marky Olivo> Report Signed by: on PROGRESS NOTE - HOSPITALIST Observed: 3:08 PM Status: F Source: [facility] Records Patient: DIONNA CONCEPCION [address] : 1975 [place], [place] [address] Location: [phone] Unit #: [id number] Progress Note - Hospitalist Rose Sanchez MD Service Dt/Tm: 05/26/25 0841 Assessment/Plan Assessment/Plan (1) Wernickes encephalopathy: Status: Acute Plan: Patient with history of alcohol abuse and previous stroke with residual left- sided weakness (right MCA stroke in 01/28) presented with generalized weakness and confusion. With metabolic encephalopathy likely secondary to electrolyte disturbance and sepsis CT head-no acute infarct. MRI is suspicious for Warnicke's encephalopathy. Neurology consult appreciated. Continue IV thiamine, multivitamin and folic acid. Continue aspirin, Plavix and high-dose of Lipitor (monitoring LFT). Psychiatry consult noted-no plan to start psychiatric medication for now. EEG-no epileptiform waves. Repeated MRI on 05/13 report reviewed, chronic changes. Area of encephalomalacia consistent with remote infarction. There is subtle periaqueductal ward enhancement. There has been improvement since prior exam, however pattern can be seen in the setting of thiamine deficiency/Wernicke''s Korsakoff in the correct clinical setting. May consider MINI. Will follow neurology recommendation. (2) Sepsis: Status: Resolved Qualifiers: Sepsis acute organ dysfunction status: unspecified Sepsis type: sepsis due to unspecified organism Qualified Code(s): A41.9 - Sepsis, unspecified organism Plan: Presented to the emergency room on 05/11 complaining of generalized weakness and fatigue Patient has residual left-sided weakness from previous stroke with lateral gaze palsy Hospital course complicated by sepsis secondary to acute cholelithiasis with concern about alcohol withdrawal with delirium tremens and Warnicke cephalopathy. Transferred to the ICU, intubated 05/14 to 05/16. Was on vasopressor General surgery consulted small bowel obstruction treated NG tube. Possible aspiration General Surgery ID and GI on board (3) Fatigue: Status: Acute Qualifiers: Fatigue type: unspecified Qualified Code(s): R53.83 - Other fatigue Plan: Presented to the emergency room on 05/11 complaining of generalized weakness and fatigue Continue PT/OT. (4) Left-sided weakness: Status: Chronic Plan: Patient has residual left-sided weakness from previous stroke in 01/28 (right MCA stroke). Echo-no PFO. Continue PT/OT. (5) History of right MCA stroke: Status: Chronic Plan: As above. (6) Gaze palsy: Status: Chronic Plan: 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 in January (7) Dehydration: Status: Resolved Plan: Received IV hydration (8) Fever: Status: Resolved Qualifiers: Fever type: unspecified Qualified Code(s): R50.9 - Fever, unspecified Plan: Patient had a fever. LFT was abnormal concerning for cholangitis. GI consulted-underwent ERCP with extraction of the gallstone. ID consulted appreciated. CT abdomen-05/13/2025 suggestive of diverticulitis. Treat for diverticulitis with IV Unasyn (or oral Augmentin) for total of 14 days (last date will be 05/26/2025). (9) Leukocytosis: Status: Resolved Qualifiers: Leukocytosis type: bandemia Qualified Code(s): D72.825 - Bandemia (10) Choledocholithiasis: Status: Resolved (11) CVA (cerebral vascular accident): Status: Chronic Qualifiers: CVA mechanism: unspecified Qualified Code(s): I63.9 - Cerebral infarction, unspecified Plan: Old infarct in MCA territory per imaging (12) Sinus tachycardia: Status: Resolved Plan: Treated and resolved (13) Alcoholism: Status: Chronic Plan: CIWA scale (14) On mechanically assisted ventilation: Status: Resolved Plan: Required intubation due to alteration in mental status Extubated 05/16/25 (15) Metabolic acidosis: Status: Resolved Plan: Treated and resolved (16) Alcohol withdrawal: Status: Ruled-out Qualifiers: Complication of substance-induced condition: with delirium Qualified Code(s): F10.931 - Alcohol use, unspecified with withdrawal delirium Plan: Out of the window MVI, thiamine, folic acid (17) GI bleed: Status: Ruled-out Qualifiers: GI bleed type/associated pathology: unspecified gastrointestinal hemorrhage type Qualified Code(s): K92.2 - Gastrointestinal hemorrhage, unspecified Plan: No evidence of GI bleed during ERCP 05/15/2025 PPI daily VTE prophylaxis (18) Septic shock: Status: Resolved Plan: Treated for septic shock with resolution Required vasopressor for hypotension (19) Urinary retention: Status: Acute Plan: Freeman catheter placed for urinary retention. Voiding trial today. Plan 05/11/2025: Admission:??? a 49-year-old male with a history of alcohol abuse and previous CVA, was admitted to [facility] with complaints of excessive fatigue and generalized weakness. Initial CT head suggested a subacute right MCA infarct. Labs showed hypokalemia and elevated troponin. He was started on aspirin and electrolyte replacement. Neurology was consulted, and an MRI was ordered. 05/12/2025: Neurology Evaluation:???MRI confirmed old cortical gyral ischemic infarcts. Neurology recommended continuing aspirin and statin therapy. Echocardiography showed normal LV function with no PFO. * Infectious Disease Consultation:???Patient developed leukocytosis, and sepsis protocol was initiated. Blood cultures were obtained, and Rocephin was started switched to Zosyn 05/13/2025: WBC count increased significantly, and the patient developed fever and tachycardia. ID switched to Unasyn. CT abdomen/pelvis suggested diverticulitis and chronic pancreatitis. * Critical Care Consultation:???Due to worsening clinical status, including tachypnea and altered mental status, the patient was transferred to the ICU. For possible alcohol withdrawal , DTs, Warnicke encephalopathy 05/14/2025:???The patient was intubated for airway protection due to altered mental status and suspected aspiration. MRCP showed choledocholithiasis, and ERCP was planned. * General surgery was consulted for small bowel obstruction, and an NG tube was placed. 05/15/2025: ERCP Procedure:???Successful sphincterotomy and stone extraction were performed. The patient remained in the ICU for continued monitoring and management of sepsis and respiratory failure. 05/16/2025: he patient was extubated and showed signs of clinical improvement. He remained on antibiotics and supportive care. 05/17/2025:The patient was stable, with resolved sepsis and improved hemodynamics. He was transferred out of the ICU. 05/20/2025: Continued management of Wernicke's encephalopathy with thiamine and multivitamins. The patient showed gradual improvement in mental status. 05/22/2025: Psychiatry Consultation:???Evaluated for encephalopathy and alcohol withdrawal delirium. Recommendations included continuing thiamine and outpatient psychiatric follow-up. * Palliative Care Consultation:???Discussed goals of care with family. The patient was oriented to self and partially to the situation. Family expressed interest in rehabilitation or long-term care placement. Continue to be full code 05/23/2025: Repeated MRI:???A follow-up MRI of the brain was performed, showing diffuse involutional changes and chronic microvascular deep white matter disease. There was an area of encephalomalacia and gliosis along the right inferior frontal gyrus, consistent with remote infarct. Subtle FLAIR and T2 hyperintensity were noted along the ventricular surface of the 3rd ventricle, periaqueductal ward, and mamillary bodies, suggestive of thiamine deficiency/Wernicke's Korsakoff syndrome. Improvement was noted since the prior exam. Aspirin and Plavix held due to nausea 05/24/2025: Patient was lethargic, aggressive and refused examination in the morning however mentation improved after physical therapist worked with the patient. 05/25 Awake and alert. Engaging in conversation. AO x 2. Episode of pneumonia labs. He thought he is in different hospital ;however he remembered when i told him. He is aware of month and year 05/26 awake and alert. Remember our discussion yesterday. Can resume aspirin today as per neurology recommendation. Diastolic blood pressure elevated we can resume amlodipine 2.5 mg daily and monitor vitals Discharge planning to a halfway facility for continued recovery and rehabilitation. DVT prophylaxis: Lovenox Current Code Status AND Diet: 05/11/25 18:30 Code Status Routine Resuscitation Status: Full Code Code Status Order Placed: Code Status Ordered 05/11/25 at 1830 05/17/25 10:31 AHA Diet Texture: Regular Fluid Restrictions?: No Discussed Patient's Care With: Nurse and Case Management Subjective Subjective: Primary Care Provider: Tay Camara MD Chief Complaint: RT MCA INFARCT/LT SIDED WEAKNESS Patient seen and examined this morning. Feeling better. Awake and alert. Remember that we talked yesterday. TeleSitter out of the room. Pending discharge. Patient Status AND Estimated DC Date Patient Registration Status: Inpatient Objective Physical Exam: GEN: No acute distress, lying comfortably HEENT: No lymphadenopathy, neck is supple Chest: Bilateral air entry, no wheezing or rhonchi CVS: S1 and S2, no gallop or murmur Abdomen: Soft, normal bowel sound, no organomegaly Extremities: No edema bilateral lower extremities. Social determinants of health completed per CM, reviewed. Constitutional: Last Vital Signs Temp Pulse Resp BP Pulse Ox O2 Flow RateFiO2 98.5 F 90 16 136/81 96 5 40 05/26/25 08:05/26/25 08:05/26/25 08:05/26/25 08:05/26/25 08:05/21/25 07:05/16/25 16: 07 07 07 07 07 53 30 Intake and Output Intake Total 826 3340 Output Total 2900 1775 Balance -20735 Admitting (IV Pump) Weight 61.4 kg Actual Weight (Kg) 73 kg Data Labs: Phosphorus 5.1 H WBC 13.5 H RBC 2.98 L Hgb 10.1 L Hct 29.3 L MCV 98.3 H MCH 33.8 H MCHC 34.4 RDW 18.3 H Plt Count 440 H Sodium 139 Potassium 4.2 Chloride 107 Carbon Dioxide 25 Anion Gap 7 BUN 11 Creatinine 0.66 Calcium 9.50 The last 24 hours of labs have been reviewed. Imaging: I have reviewed the diagnostic images in the EMR. Medications and Comanagement: Medications reviewed separately. Pressure Injury/Pressure Area of Concern Sacrum: Site identified as: Area of Concern Provider Reviewed: Management of wounds per consulted wound provider Entered by: Rose Sanchez MD on 05/26/25 0851 Report Signed by: Rose Sanchez MD on 05/26/25 1508 <<Signature on File>> <Electronically signed by Rose Sanchez MD> Report Signed by: on CBC WITHOUT DIFFERENTIAL Collected: 5:49 AM Status: F Source: [facility] TYPE CODE TESTS RESULT OUT OF RANGE REFERENCE UNITS LAB L100.0100 WBC 13.5 High 4.4-10.5 th/cmm LAB L100.0300 RBC 2.98 Low 4.50-6.00 mil/cmm LAB L100.0400 Hemoglobin 10.1 Low 13.5-16.5 gm/dL LAB L100.0500 Hematocrit 29.3 Low 40.0-49.0 % LAB L100.0600 MCV 98.3 High 80-97 CU DEIDRA LAB L100.0700 MCH 33.8 High 27.5-33.0 PG LAB L100.0800 MCHC 34.4 Normal 33.0-36.0 gm/dL LAB L100.0900 RDW 18.3 High 12.0-16.0 % LAB L100.1000 Platelet Count 440 High 150-400 th/cmm Performed By: #### L100.0050 #### Main Laboratory ([facility]) [address] [place] [address] Regan Sahni MD RENAL FUNCTION PANEL Collected: 05/26/2025 5:49 AM S tatus: F Source: [facility] TYPE CODE TESTS RESULT OUT OF RANGE REFERENCE UNITS LAB L400.1400 Sodium 139 Normal 135-145 mEq/L LAB L400.1500 Potassium 4.2 Normal 3.6-5.0 mEq/L LAB L400.1600 Chloride 107 Normal 101-111 mEq/L LAB L400.1700 Carbon Dioxide 25 Normal 21-32 mEq/L LAB L400.1800 Anion Gap 7 Normal 4-12 LAB L400.1820 Glucose 85 Normal 70-110 mg/dL Result Comment: *This refere nce range applies to fasting specimens only. LAB L400.1835 BUN 11 Normal 7-20 mg/dL LAB L400.1840 Creatinine 0.66 Normal 0.60-1.30 mg/dL LAB L400.1845 GFR Calculation > 60 Normal Result Comment: Chronic Kidn ey Disease stages by NKDF Stage eGFR I >90 II 60-89 III 30-59 IV 15-29 V <15 or dialysis Note: Information regarding the eGFR equation used can be found at https://www.kidney.org/rysm-qtlzt-ctsunzrx. AGE(years) AVERAGE GFR 50-59 93 ml/min/1.73 square meters Note:This result is normalized to 1.73 square meter body surface area. Height and weight are not factored. LAB L400.2100 Calcium 9.50 Normal 8.8-10.5 mg/dL LAB L400.2120 Albumin 3.3 Low 3.5-5.0 g/dL LAB L400.2200 Phosphorus 5.1 High 2.4-4.7 mg/dL Performed By: #### L400.0410 #### Main Laboratory ([facility]) [address] [place] [address] Regan Sahni MD PROGRESS NOTE NEUROLOGY Observed: 2024 4:23 PM Status: F Source: [facility] Records Patient: DIONNA CONCEPCION [address] : 1975 [place], [place] [address] Location: [phone] Unit #: [id number] [facility] #: [id number] Progress Note Neurology Zack Valladares MD Service Dt/Tm: 05/25/25 1623 [facility] TeleNeurology Consult Services Routine Consult Follow-Up Patient Name: Dionna Concepcion Date of : 1975 Identification Number: Date of Service: 05/25/2025 16:13:18 Diagnosis ??? G93.41 - Encephalopathy Metabolic ??? E51.2 - Wernicke encephalopathy Impression f/u 05/25 : 49 years old male : Encephalopathy and L hemiparesis in the setting of chronic alcohol use w/ imaging suggestive of WE, infectious state, and remote infarctions. 05/20: speaks very slowly , stated his name , stated is in his dad's house, stated year is 1954, , when asked who's the president , rolled his eyes, appears to have dysconjugate eye movements , appears to ftn dysmetria , cannot comment on LE due to limited participation 05/21: alert, stated his name , in [facility], year 2053, stated name of president, follows commands appropriately, nihss- 2, overall doing much better today 05/22: is irritable, using inappropriate language, non compliant , hence neuro exam is limited 05/23:has right nasal bleed, unknown reason Alert,stated his name, in [facility], year 2053, trsunil, nihss-3 05/24:Alert, stated his name, stated [facility], stated 53 but year 2024, trump, no further nose bleeds 05/25: more calm, Alert, stated his name, stated hospital, stated does not know the year, marilu, continues to have no further nose bleeds MRI BRAIN 05/12 : 1. No acute intracranial abnormality. Old cortical gyral ischemic infarcts with focal atrophy involving the right postcentral gyrus and right lateral occipitotemporal gyrus and smaller old cortical gyral ischemic infarct in the right middle frontal gyrus. TTE 05/12- ef 60-65% , no pfo CTA Head/neck 05/12 : no significant stenosis ldl 05/11- 171, goal < 70 trigly 160, goal < 150 EEG- NML 05/23 mri brain with contrast : There is a area of encephalomalacia and gliosis along the RIGHTinferior frontal gyrus consistent with remote infarct appearance similar remote ischemic change along the lateral convexity of the RIGHT occipitaltemporal transition zone. 3. There is a subtle area of DWI hyperintensity along the ventral surfaceof the murray however no matching FLAIR or ADC abnormality, and likely F9ydrjs through.4. No mass, hemorrhage, or acute territorial infarct..5. Subtle FLAIR and T2 hyperintensity along the ventricular surface ofthe 3rd ventricle, periaqueductal ward, as well as the mamillary bodies.There is subtle periaqueductal ward enhancement. There has been improvement since prior exam, however pattern can be seen in the setting of thiamine deficiency/Wernicke''s Korsakoff in the correct clinical setting.. d/d ; encephalopathy- metabolic, cva ( prior) received thiamine iv 500mg q 8hrs for 3 days from 05/14 - then received 250mg iv thiamine for 10 days today day9 , then 100mg daily folate 1mg daily thiamine level pending hold : asa and plavix for nasal bleeding which has stopped last 2 days, will await till tomorrow and resume asa if continues to be ok lipitor to 80mg daily pt/ot/speech therapy neurology follow Our recommendations are outlined below Subjective feeling ok Examination BP(129/97), Pulse(106), Temp(98.7), Resp(14), 1A: Level of Consciousness - Alert; keenly responsive + 0 1B: Ask Month and Age - 1 Question Right + 1 1C: Blink Eyes AND Squeeze Hands - Performs Both Tasks + 0 2: Test Horizontal Extraocular Movements - Normal + 0 3: Test Visual Pink - No Visual Loss + 0 4: Test Facial Palsy (Use Grimace if Obtunded) - Normal symmetry + 0 5A: Test Left Arm Motor Drift - No Drift for 10 Seconds + 0 5B: Test Right Arm Motor Drift - No Drift for 10 Seconds + 0 6A: Test Left Leg Motor Drift - No Drift for 5 Seconds + 0 6B: Test Right Leg Motor Drift - No Drift for 5 Seconds + 0 7: Test Limb Ataxia (FNF/Heel-Leonard) - No Ataxia + 0 8: Test Sensation - Normal; No sensory loss + 0 9: Test Language/Aphasia - Normal; No aphasia + 0 10: Test Dysarthria - Normal + 0 11: Test Extinction/Inattention - No abnormality + 0 NIHSS Score: 1 This consult was conducted in real time using interactive audio and video technology. Patient was informed of the technology being used for this visit and agreed to proceed. Patient located in hospital and provider located at home/office setting. Telehealth Neurology consultation was provided. I spent 25 minutes providing telehealth care. This includes time spent for face to face visit via telemedicine, review of medical records, imaging studies and discussion of findings with providers, the patient and/or family. Dr Zack Valladares [facility] For Inpatient follow-up with [facility] physician please call [facility] at . As we are not an outpatient service for any post hospital discharge needs please contact the hospital for assistance. If you have any questions for the [employer] physicians or need to reconsult for clinical or diagnostic changes please contact us via [facility] at [facility] [employer] [facility] Data: Last Vital Signs Temp Pulse Resp BP Pulse Ox O2 Flow RateFiO2 98.7 F 106 H 14 129/97 H 96 5 40 05/25/25 15:05/25/25 15:05/25/25 15:05/25/25 15:05/25/25 15:05/21/25 07:05/16/25 16: 24 24 24 24 24 53 30 Patient was informed the Neurology Consult would happen via telehealth (remote video) and consented to receiving care in this manner. Entered by: Zack Valladares MD on 05/25/25 1623 Report Signed by: Zack Valladares MD on 05/25/25 1623 <<Signature on File>> <Electronically signed by Zack Valladares MD> Report Signed by: on PROGRESS NOTE - HOSPITALIST Observed: 12:50 PM Status: F Source: [facility] Records Patient: DIONNA CONCEPCION [address] : 1975 [place], [place] [address] Location: [phone] Unit #: [id number] Progress Note - Hospitalist Rose Sanchez MD Service Dt/Tm: 05/25/25 0754 Assessment/Plan Assessment/Plan (1) Wernickes encephalopathy: Status: Acute Plan: Patient with history of alcohol abuse and previous stroke with residual left- sided weakness (right MCA stroke in 01/28) presented with generalized weakness and confusion. With metabolic encephalopathy likely secondary to electrolyte disturbance and sepsis CT head-no acute infarct. MRI is suspicious for Warnicke's encephalopathy. Neurology consult appreciated. Continue IV thiamine, multivitamin and folic acid. Continue aspirin, Plavix and high-dose of Lipitor (monitoring LFT). Psychiatry consult noted-no plan to start psychiatric medication for now. EEG-no epileptiform waves. Repeated MRI on 05/13 report reviewed, chronic changes. Area of encephalomalacia consistent with remote infarction. There is subtle periaqueductal ward enhancement. There has been improvement since prior exam, however pattern can be seen in the setting of thiamine deficiency/Wernicke''s Korsakoff in the correct clinical setting. May consider MINI. Will follow neurology recommendation. (2) Sepsis: Status: Resolved Qualifiers: Sepsis acute organ dysfunction status: unspecified Sepsis type: sepsis due to unspecified organism Qualified Code(s): A41.9 - Sepsis, unspecified organism Plan: Presented to the emergency room on 05/11 complaining of generalized weakness and fatigue Patient has residual left-sided weakness from previous stroke with lateral gaze palsy Hospital course complicated by sepsis secondary to acute cholelithiasis with concern about alcohol withdrawal with delirium tremens and Warnicke cephalopathy. Transferred to the ICU, intubated 05/14 to 05/16. Was on vasopressor General surgery consulted small bowel obstruction treated NG tube. Possible aspiration General Surgery ID and GI on board (3) Fatigue: Status: Acute Qualifiers: Fatigue type: unspecified Qualified Code(s): R53.83 - Other fatigue Plan: Presented to the emergency room on 05/11 complaining of generalized weakness and fatigue Continue PT/OT. (4) Left-sided weakness: Status: Chronic Plan: Patient has residual left-sided weakness from previous stroke in 01/28 (right MCA stroke). Echo-no PFO. Continue PT/OT. (5) History of right MCA stroke: Status: Chronic Plan: As above. (6) Gaze palsy: Status: Chronic Plan: 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 in January (7) Dehydration: Status: Resolved Plan: Received IV hydration (8) Fever: Status: Resolved Qualifiers: Fever type: unspecified Qualified Code(s): R50.9 - Fever, unspecified Plan: Patient had a fever. LFT was abnormal concerning for cholangitis. GI consulted-underwent ERCP with extraction of the gallstone. ID consulted appreciated. CT abdomen-05/13/2025 suggestive of diverticulitis. Treat for diverticulitis with IV Unasyn (or oral Augmentin) for total of 14 days (last date will be 05/26/2025). (9) Leukocytosis: Status: Resolved Qualifiers: Leukocytosis type: bandemia Qualified Code(s): D72.825 - Bandemia (10) Choledocholithiasis: Status: Resolved (11) CVA (cerebral vascular accident): Status: Chronic Qualifiers: CVA mechanism: unspecified Qualified Code(s): I63.9 - Cerebral infarction, unspecified Plan: Old infarct in MCA territory per imaging (12) Sinus tachycardia: Status: Resolved Plan: Treated and resolved (13) Alcoholism: Status: Chronic Plan: CIWA scale (14) On mechanically assisted ventilation: Status: Resolved Plan: Required intubation due to alteration in mental status Extubated 05/16/25 (15) Metabolic acidosis: Status: Resolved Plan: Treated and resolved (16) Alcohol withdrawal: Status: Ruled-out Qualifiers: Complication of substance-induced condition: with delirium Qualified Code(s): F10.931 - Alcohol use, unspecified with withdrawal delirium Plan: Out of the window MVI, thiamine, folic acid (17) GI bleed: Status: Ruled-out Qualifiers: GI bleed type/associated pathology: unspecified gastrointestinal hemorrhage type Qualified Code(s): K92.2 - Gastrointestinal hemorrhage, unspecified Plan: No evidence of GI bleed during ERCP 05/15/2025 PPI daily VTE prophylaxis (18) Septic shock: Status: Resolved Plan: Treated for septic shock with resolution Required vasopressor for hypotension (19) Urinary retention: Status: Acute Plan: Freeman catheter placed for urinary retention. Voiding trial today. Plan 05/11/2025: Admission:??? a 49-year-old male with a history of alcohol abuse and previous CVA, was admitted to [facility] with complaints of excessive fatigue and generalized weakness. Initial CT head suggested a subacute right MCA infarct. Labs showed hypokalemia and elevated troponin. He was started on aspirin and electrolyte replacement. Neurology was consulted, and an MRI was ordered. 05/12/2025: Neurology Evaluation:???MRI confirmed old cortical gyral ischemic infarcts. Neurology recommended continuing aspirin and statin therapy. Echocardiography showed normal LV function with no PFO. * Infectious Disease Consultation:???Patient developed leukocytosis, and sepsis protocol was initiated. Blood cultures were obtained, and Rocephin was started switched to Zosyn 05/13/2025: WBC count increased significantly, and the patient developed fever and tachycardia. ID switched to Unasyn. CT abdomen/pelvis suggested diverticulitis and chronic pancreatitis. * Critical Care Consultation:???Due to worsening clinical status, including tachypnea and altered mental status, the patient was transferred to the ICU. For possible alcohol withdrawal , DTs, Warnicke encephalopathy 05/14/2025:???The patient was intubated for airway protection due to altered mental status and suspected aspiration. MRCP showed choledocholithiasis, and ERCP was planned. * General surgery was consulted for small bowel obstruction, and an NG tube was placed. 05/15/2025: ERCP Procedure:???Successful sphincterotomy and stone extraction were performed. The patient remained in the ICU for continued monitoring and management of sepsis and respiratory failure. 05/16/2025: he patient was extubated and showed signs of clinical improvement. He remained on antibiotics and supportive care. 05/17/2025:The patient was stable, with resolved sepsis and improved hemodynamics. He was transferred out of the ICU. 05/20/2025: Continued management of Wernicke's encephalopathy with thiamine and multivitamins. The patient showed gradual improvement in mental status. 05/22/2025: Psychiatry Consultation:???Evaluated for encephalopathy and alcohol withdrawal delirium. Recommendations included continuing thiamine and outpatient psychiatric follow-up. * Palliative Care Consultation:???Discussed goals of care with family. The patient was oriented to self and partially to the situation. Family expressed interest in rehabilitation or long-term care placement. Continue to be full code 05/23/2025: Repeated MRI:???A follow-up MRI of the brain was performed, showing diffuse involutional changes and chronic microvascular deep white matter disease. There was an area of encephalomalacia and gliosis along the right inferior frontal gyrus, consistent with remote infarct. Subtle FLAIR and T2 hyperintensity were noted along the ventricular surface of the 3rd ventricle, periaqueductal ward, and mamillary bodies, suggestive of thiamine deficiency/Wernicke's Korsakoff syndrome. Improvement was noted since the prior exam. 05/24/2025: Patient was lethargic, aggressive and refused examination in the morning however mentation improved after physical therapist worked with the patient. 05/25 Awake and alert. Engaging in conversation. AO x 2. Episode of pneumonia labs. He thought he is in different hospital ;however he remember 2. I told him. He is aware of month and year Discharge planning to a halfway facility for continued recovery and rehabilitation. DVT prophylaxis: Lovenox Current Code Status AND Diet: 05/11/25 18:30 Code Status Routine Resuscitation Status: Full Code Code Status Order Placed: Code Status Ordered 05/11/25 at 1830 05/17/25 10:31 AHA Diet Texture: Regular Fluid Restrictions?: No Discussed Patient's Care With: Nurse and Case Management Subjective Subjective: Primary Care Provider: Tay Camara MD Chief Complaint: RT MCA INFARCT/LT SIDED WEAKNESS Patient seen and examined this morning. Awake and alert. Engaging in conversation. AO x 2. Episode of pneumonia labs. He thought he is in different hospital ;however he remember 2. I told him. He is aware of month and year Patient Status AND Estimated DC Date Patient Registration Status: Inpatient Objective Physical Exam: GEN: No acute distress, lying comfortably HEENT: No lymphadenopathy, neck is supple, left gaze palsy Chest: Bilateral air entry, no wheezing or rhonchi CVS: S1 and S2, no gallop or murmur Abdomen: Soft, normal bowel sound, no organomegaly Extremities: No edema bilateral lower extremities. Weakness noted Social determinants of health completed per CM, reviewed. Constitutional: Last Vital Signs Temp Pulse Resp BP Pulse Ox O2 Flow RateFiO2 98.2 F 90 18 121/84 96 5 40 05/25/25 04:05/25/25 04:05/25/25 04:05/25/25 04:05/25/25 04:05/21/25 07:05/16/25 16: 25 25 25 53 30 Intake and Output Intake Total 511.07 826 Output Total 700 2900 Balance -188.93 -2074 Admitting (IV Pump) Weight 61.4 kg Actual Weight (Kg) 71.1 kg Data Labs: The last 24 hours of labs have been reviewed. Imaging: I have reviewed the diagnostic images in the EMR. Medications and Comanagement: Medications reviewed separately. Pressure Injury/Pressure Area of Concern Sacrum: Site identified as: Area of Concern Provider Reviewed: Management of wounds per consulted wound provider Entered by: Rose Sanchez MD on 05/25/25 2703 Report Signed by: Rose Sanchez MD on 05/25/25 1250 <<Signature on File>> <Electronically signed by Rose Sanchez MD> Report Signed by: on PROGRESS NOTE - HOSPITALIST Observed: 5:22 PM Status: F Source: [facility] Records Patient: DIONNA CONCEPCION [address] : 1975 [place], [place] [address] Location: [facility] [phone] Unit #: [id number] Progress Note - Hospitalist Rose Sanchez MD Service Dt/Tm: 05/24/25 0939 Assessment/Plan Assessment/Plan (1) Wernickes encephalopathy: Status: Acute Plan: Patient with history of alcohol abuse and previous stroke with residual left- sided weakness (right MCA stroke in 01/28) presented with generalized weakness and confusion. With metabolic encephalopathy likely secondary to electrolyte disturbance and sepsis CT head-no acute infarct. MRI is suspicious for Warnicke's encephalopathy. Neurology consult appreciated. Continue IV thiamine, multivitamin and folic acid. Continue aspirin, Plavix and high-dose of Lipitor (monitoring LFT). Psychiatry consult noted-no plan to start psychiatric medication for now. EEG-no epileptiform waves. Repeated MRI on 05/13 report reviewed, chronic changes. Area of encephalomalacia consistent with remote infarction. There is subtle periaqueductal ward enhancement. There has been improvement since prior exam, however pattern can be seen in the setting of thiamine deficiency/Wernicke''s Korsakoff in the correct clinical setting. May consider MINI. Will follow neurology recommendation. (2) Sepsis: Status: Resolved Qualifiers: Sepsis acute organ dysfunction status: unspecified Sepsis type: sepsis due to unspecified organism Qualified Code(s): A41.9 - Sepsis, unspecified organism Plan: Presented to the emergency room on 05/11 complaining of generalized weakness and fatigue Patient has residual left-sided weakness from previous stroke with lateral gaze palsy Hospital course complicated by sepsis secondary to acute cholelithiasis with concern about alcohol withdrawal with delirium tremens and Warnicke cephalopathy. Transferred to the ICU, intubated 05/14 to 05/16. Was on vasopressor General surgery consulted small bowel obstruction treated NG tube. Possible aspiration General Surgery ID and GI on board (3) Fatigue: Status: Acute Qualifiers: Fatigue type: unspecified Qualified Code(s): R53.83 - Other fatigue Plan: Presented to the emergency room on 05/11 complaining of generalized weakness and fatigue Continue PT/OT. (4) Left-sided weakness: Status: Chronic Plan: Patient has residual left-sided weakness from previous stroke in 01/28 (right MCA stroke). Echo-no PFO. Continue PT/OT. (5) History of right MCA stroke: Status: Chronic Plan: As above. (6) Gaze palsy: Status: Chronic Plan: 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 in January (7) Dehydration: Status: Resolved Plan: Received IV hydration (8) Fever: Status: Resolved Qualifiers: Fever type: unspecified Qualified Code(s): R50.9 - Fever, unspecified Plan: Patient had a fever. LFT was abnormal concerning for cholangitis. GI consulted-underwent ERCP with extraction of the gallstone. ID consulted appreciated. CT abdomen-05/13/2025 suggestive of diverticulitis. Treat for diverticulitis with IV Unasyn (or oral Augmentin) for total of 14 days (last date will be 05/26/2025). (9) Leukocytosis: Status: Resolved Qualifiers: Leukocytosis type: bandemia Qualified Code(s): D72.825 - Bandemia (10) Choledocholithiasis: Status: Resolved (11) CVA (cerebral vascular accident): Status: Chronic Qualifiers: CVA mechanism: unspecified Qualified Code(s): I63.9 - Cerebral infarction, unspecified Plan: Old infarct in MCA territory per imaging (12) Sinus tachycardia: Status: Resolved Plan: Treated and resolved (13) Alcoholism: Status: Chronic Plan: CIWA scale (14) On mechanically assisted ventilation: Status: Resolved Plan: Required intubation due to alteration in mental status Extubated 05/16/25 (15) Metabolic acidosis: Status: Resolved Plan: Treated and resolved (16) Alcohol withdrawal: Status: Ruled-out Qualifiers: Complication of substance-induced condition: with delirium Qualified Code(s): F10.931 - Alcohol use, unspecified with withdrawal delirium Plan: Out of the window MVI, thiamine, folic acid (17) GI bleed: Status: Ruled-out Qualifiers: GI bleed type/associated pathology: unspecified gastrointestinal hemorrhage type Qualified Code(s): K92.2 - Gastrointestinal hemorrhage, unspecified Plan: No evidence of GI bleed during ERCP 05/15/2025 PPI daily VTE prophylaxis (18) Septic shock: Status: Resolved Plan: Treated for septic shock with resolution Required vasopressor for hypotension (19) Urinary retention: Status: Acute Plan: Freeman catheter placed for urinary retention. Voiding trial today. Plan 05/11/2025: Admission:??? a 49-year-old male with a history of alcohol abuse and previous CVA, was admitted to [facility] with complaints of excessive fatigue and generalized weakness. Initial CT head suggested a subacute right MCA infarct. Labs showed hypokalemia and elevated troponin. He was started on aspirin and electrolyte replacement. Neurology was consulted, and an MRI was ordered. 05/12/2025: Neurology Evaluation:???MRI confirmed old cortical gyral ischemic infarcts. Neurology recommended continuing aspirin and statin therapy. Echocardiography showed normal LV function with no PFO. * Infectious Disease Consultation:???Patient developed leukocytosis, and sepsis protocol was initiated. Blood cultures were obtained, and Rocephin was started switched to Zosyn 05/13/2025: WBC count increased significantly, and the patient developed fever and tachycardia. ID switched to Unasyn. CT abdomen/pelvis suggested diverticulitis and chronic pancreatitis. * Critical Care Consultation:???Due to worsening clinical status, including tachypnea and altered mental status, the patient was transferred to the ICU. For possible alcohol withdrawal , DTs, Warnicke encephalopathy 05/14/2025:???The patient was intubated for airway protection due to altered mental status and suspected aspiration. MRCP showed choledocholithiasis, and ERCP was planned. * General surgery was consulted for small bowel obstruction, and an NG tube was placed. 05/15/2025: ERCP Procedure:???Successful sphincterotomy and stone extraction were performed. The patient remained in the ICU for continued monitoring and management of sepsis and respiratory failure. 05/16/2025: he patient was extubated and showed signs of clinical improvement. He remained on antibiotics and supportive care. 05/17/2025:The patient was stable, with resolved sepsis and improved hemodynamics. He was transferred out of the ICU. 05/20/2025: Continued management of Wernicke's encephalopathy with thiamine and multivitamins. The patient showed gradual improvement in mental status. 05/22/2025: Psychiatry Consultation:???Evaluated for encephalopathy and alcohol withdrawal delirium. Recommendations included continuing thiamine and outpatient psychiatric follow-up. * Palliative Care Consultation:???Discussed goals of care with family. The patient was oriented to self and partially to the situation. Family expressed interest in rehabilitation or long-term care placement. Continue to be full code 05/23/2025: Repeated MRI:???A follow-up MRI of the brain was performed, showing diffuse involutional changes and chronic microvascular deep white matter disease. There was an area of encephalomalacia and gliosis along the right inferior frontal gyrus, consistent with remote infarct. Subtle FLAIR and T2 hyperintensity were noted along the ventricular surface of the 3rd ventricle, periaqueductal ward, and mamillary bodies, suggestive of thiamine deficiency/Wernicke's Korsakoff syndrome. Improvement was noted since the prior exam. 05/24/2025: * Patient was lethargic, aggressive and refused examination in the morning however mentation improved after physical therapist worked with the patient. Discharge planning to a halfway facility for continued recovery and rehabilitation. DVT prophylaxis: Lovenox Current Code Status AND Diet: 05/11/25 18:30 Code Status Routine Resuscitation Status: Full Code Code Status Order Placed: Code Status Ordered 05/11/25 at 1830 05/17/25 10:31 AHA Diet Texture: Regular Fluid Restrictions?: No Discussed Patient's Care With: Nurse Subjective Subjective: Primary Care Provider: Tay Camara MD Chief Complaint: RT MCA INFARCT/LT SIDED WEAKNESS Patient seen and examined this morning. Patient was agitated during examination and lethargic. uncomprehending talk However agitation improved after PT evaluation and moving patient to the chair. Patient Status AND Estimated DC Date Patient Registration Status: Inpatient Objective Physical Exam: GEN: Lethargic, not following command, uncomprehending talk HEENT: No lymphadenopathy, neck is supple, left gaze palsy Chest: Bilateral air entry, no wheezing or rhonchi CVS: S1 and S2, no gallop or murmur Abdomen: Soft, normal bowel sound, no organomegaly Extremities: No edema bilateral lower extremities. Weakness noted left side. Social determinants of health completed per CM, reviewed. Constitutional: Last Vital Signs Temp Pulse Resp BP Pulse Ox O2 Flow RateFiO2 99.0 F 91 20 120/92 H 96 5 40 05/24/25 08:05/24/25 08:05/24/25 08:05/24/25 08:05/24/25 08:05/21/25 07:05/16/25 16: 24 24 24 24 24 53 30 Intake and Output Intake Total 1380.93 511.07 120 Output Total 808 023 8586 Balance 505.93 -188.93 -1180 Admitting (IV Pump) Weight 61.4 kg Actual Weight (Kg) 70.7 kg Data Labs: Magnesium 1.7 L WBC 12.1 H RBC 2.92 L Hgb 9.8 L Hct 29.1 L MCV 99.6 H MCH 33.7 H MCHC 33.9 RDW 18.4 H Plt Count 364 Sodium 140 Potassium 4.0 Chloride 111 Carbon Dioxide 21 Anion Gap 8 BUN 8 Creatinine 0.71 Calcium 8.80 The last 24 hours of labs have been reviewed. Imaging: I have reviewed the diagnostic images in the EMR. Medications and Comanagement: Medications reviewed separately. Pressure Injury/Pressure Area of Concern Sacrum: Site identified as: Area of Concern Provider Reviewed: Management of wounds per consulted wound provider Entered by: Rose Sanchez MD on 05/24/25 0939 Report Signed by: Rose Sanchez MD on 05/24/25 1721 <<Signature on File>> <Electronically signed by Rose Sanchez MD> Report Signed by: on THIAMIN, VITAMIN B1 Collected: 05/24/20 4:58 PM Status: F Source: [facility] Order Comment: Send out test message Close TYPE CODE TESTS RESULT OUT OF RANGE REFERENCE UNITS LAB L925.3030 Thiamin 359 High 70-180 nmol/L Result Comment: -------ADDITIONAL INFORMATION This test was developed and its performance characteristics determined by [facility] in a manner consistent with CLIA requirements. This test has not been cleared or approved by the U.S. Food and Drug Administration. Test Performed by: [facility] [address] [place] [address] Legislative Aide: Patria Dueñas Ph.D.; CLIA# [id number] Performed By: #### L925.3020 #### [facility] [address] [place] [address] PROGRESS NOTE NEUROLOGY Observed: 2024 4:06 PM Status: F Source: [facility] Records Patient: DIONNA CONCEPCION [address] : 1975 [place], [place] [address] Location: [address] [place] [address] Unit #: [id number] Progress Note Neurology Zack Valladares MD Service Dt/Tm: 05/24/25 1606 [employer] [facility] [employer] Routine Consult Follow-Up Patient Name: Dionna Concepcion Date of : 1975 Identification Number: Date of Service: 05/24/2025 15:54:39 Diagnosis ??? G93.49 - Encephalopathy Multifactorial ??? E51.2 - Wernicke encephalopathy Impression f/u 05/24 : 49 years old male : Encephalopathy and L hemiparesis in the setting of chronic alcohol use w/ imaging suggestive of WE, infectious state, and remote infarctions. 05/20: speaks very slowly , stated his name , stated is in his dad's house, stated year is 1954, , when asked who's the president , rolled his eyes, appears to have dysconjugate eye movements , appears to ftn dysmetria , cannot comment on LE due to limited participation 05/21: alert, stated his name , in [facility], year 2053, staed name of president, follows commands appropriately, nihss- 2, overall doing much better today 05/22: is irritable, using inappropriate language, non compliant , hence neuro exam is limited 05/23:has right nasal bleed, unknown reason Alert,stated his name, in hospital, year 2053, marilu, nihss-3 05/24:Alert, stated his name, stated [facility], stated 53 but year 2024, peytonsunil, no further nose bleeds MRI BRAIN 05/12 : 1. No acute intracranial abnormality. Old cortical gyral ischemic infarcts with focal atrophy involving the right postcentral gyrus and right lateral occipitotemporal gyrus and smaller old cortical gyral ischemic infarct in the right middle frontal gyrus. TTE 05/12- ef 60-65% , no pfo CTA Head/neck 05/12 : no significant stenosis ldl 05/11- 171, goal < 70 trigly 160, goal < 150 EEG- NML mri brain with contrast : There is a area of encephalomalacia and gliosis along the RIGHTinferior frontal gyrus consistent with remote infarct appearance similarremote ischemic change along the lateral convexity of the RIGHT occipitaltemporal transition zone. 3. There is a subtle area of DWI hyperintensity along the ventral surfaceof the murray however no matching FLAIR or ADC abnormality, and likely T2 shine through.4. No mass, hemorrhage, or acute territorial infarct.. 5. Subtle FLAIR and T2 hyperintensity along the ventricular surface ofthe 3rd ventricle, periaqueductal ward, as well as the mamillary bodies.There is subtle periaqueductal ward enhancement. There has been improvement since prior exam, however pattern can be seen in the setting of thiamine deficiency/Wernicke''s Korsakoff in the correct clinical setting.. d/d ; encephalopathy- metabolic, cva ( prior) received thiamine iv 500mg q 8hrs for 3 days from 05/14 - then received 250mg iv thiamine for 3 days, today is day 4 of 6 for t a total target of 10 days, then 100mg daily folate 1mg daily ordered thiamine level hold : asa and plavix for now given nasal bleeding lipitor to 80mg daily pt/ot/speech therapy neurology follow Our recommendations are outlined below Subjective no further nose bleeds Examination BP(132/95), Pulse(85), Temp(97.7), Resp(22), 5A: Test Left Arm Motor Drift - Drift, but doesn't hit bed + 1 6A: Test Left Leg Motor Drift - Drift, but doesn't hit bed + 1 NIHSS Score: 2 NIHSS Free Text : Alert, stated his name, stated tonie walton, stated 53 but year 2024, marilu, This consult was conducted in real time using interactive audio and video technology. Patient was informed of the technology being used for this visit and agreed to proceed. Patient located in hospital and provider located at home/office setting. Telehealth Neurology consultation was provided. I spent 25 minutes providing telehealth care. This includes time spent for face to face visit via telemedicine, review of medical records, imaging studies and discussion of findings with providers, the patient and/or family. Dr Zack Valladares [facility] For Inpatient follow-up with [employer] physician please call [facility] at . As we are not an outpatient service for any post hospital discharge needs please contact the hospital for assistance. If you have any questions for the [employer] physicians or need to reconsult for clinical or diagnostic changes please contact us via [facility] at Data: Last Vital Signs Temp Pulse Resp BP Pulse Ox O2 Flow RateFiO2 97.7 F 85 22 H 132/95 H 98 5 40 05/24/25 13:05/24/25 13:05/24/25 13:05/24/25 13:05/24/25 13:05/21/25 07:05/16/25 16: 10 10 10 10 10 53 30 Hematology WBC 12.1 H RBC 2.92 L Hgb 9.8 L Hct 29.1 L MCV 99.6 H MCH 33.7 H MCHC 33.9 RDW 18.4 H Plt Count 364 Chemistry Sodium 140 Potassium 4.0 Chloride 111 Carbon Dioxide 21 Anion Gap 8 BUN 8 Creatinine 0.71 GFR Calculation > 60 Random Glucose 91 Calcium 8.80 Magnesium 1.7 L Total Bilirubin 0.8 Direct Bilirubin 0.2 AST 27 ALT 35 Alkaline Phosphatase 203 H Total Protein 5.4 L Albumin 3.1 L Patient was informed the Neurology Consult would happen via telehealth (remote video) and consented to receiving care in this manner. Entered by: Zack Valladares MD on 05/24/25 7542 Report Signed by: Zack Valladares MD on 05/24/25 2062 <<Signature on File>> <Electronically signed by Zack Valladares MD> Report Signed by: on BASIC METABOLIC,NON-FASTING Collected: 05/24/2025 6:35 AM Status: F Source: [facility] TYPE CODE TESTS RESULT OUT OF RANGE REFERENCE UNITS LAB L400.1400 Sodium 140 Normal 135-145 mEq/L LAB L400.1500 Potassium 4.0 Normal 3.6-5.0 mEq/L LAB L400.1600 Chloride 111 Normal 101-111 mEq/L LAB L400.1700 Carbon Dioxide 21 Normal 21-32 mEq/L LAB L400.1800 Anion Gap 8 Normal 4-12 LAB L400.1820 Glucose 91 Normal 70-110 mg/dL Result Comment: *This refere nce range applies to fasting specimens only. LAB L400.1835 BUN 8 Normal 7-20 mg/dL LAB L400.1840 Creatinine 0.71 Normal 0.60-1.30 mg/dL LAB L400.1845 GFR Calculation > 60 Normal Result Comment: Chronic Kidn ey Disease stages by NKDF Stage eGFR I >90 II 60-89 III 30-59 IV 15-29 V <15 or dialysis Note: Information regarding the eGFR equation used can be found at https://www.kidney.org/xqzo-xwnub-aebdycxq. AGE(years) AVERAGE GFR 50-59 93 ml/min/1.73 square meters Note:This result is normalized to 1.73 square meter body surface area. Height and weight are not factored. LAB L400.2100 Calcium 8.80 Normal 8.8-10.5 mg/dL Performed By: #### L400.5100 , L400.0302, L400.0152 #### Main Laboratory ([facility]) [address] [place] [address] Regan Sahni MD HEPATIC FUNCTION PANEL (LIVER) Collecte d: 05/24/2025 6:35 AM Status: F Source: [facility] TYPE CODE TESTS RESULT OUT OF RANGE REFERENCE UNITS LAB L400.1900 AST/SGOT 27 Normal 15-41 IU/L LAB L400.1950 Alk Phos 203 High 41-137 IU/L LAB L400.2000 Bili,Total 0.8 Normal 0.2-1.0 mg/dL LAB L400.2050 Bili,Direct 0.2 Normal 0.1-0.2 mg/dL LAB L400.2120 Albumin 3.1 Low 3.5-5.0 g/dL LAB L400.2140 Total Protein 5.4 Low 6.2-8.0 g/dL LAB L400.4400 ALT/SGPT 35 Normal 10-40 IU/L Performed By: #### L400.5100 , L400.0302, L400.0152 #### Main Laboratory ([facility]) [address] [place] [address] Regan Sahni MD MAGNESIUM Collected: 6:35 AM Status: F Source: [facility] TYPE CODE TESTS RESULT OUT OF RANGE REFERENCE UNITS LAB L400.5100 Magnesium 1.7 Low 1.8-2.5 mg/dL Performed By: #### L400.5100 , L400.0302, L400.0152 #### Main Laboratory ([facility]) [address] [place] [address] Regan Sahni MD CBC WITHOUT DIFFERENTIAL Collected: 6:35 AM Status: F Source: [facility] TYPE CODE TESTS RESULT OUT OF RANGE REFERENCE UNITS LAB L100.0100 WBC 12.1 High 4.4-10.5 th/cmm LAB L100.0300 RBC 2.92 Low 4.50-6.00 mil/cmm LAB L100.0400 Hemoglobin 9.8 Low 13.5-16.5 gm/dL LAB L100.0500 Hematocrit 29.1 Low 40.0-49.0 % LAB L100.0600 MCV 99.6 High 80-97 CU DEIDRA LAB L100.0700 MCH 33.7 High 27.5-33.0 PG LAB L100.0800 MCHC 33.9 Normal 33.0-36.0 gm/dL LAB L100.0900 RDW 18.4 High 12.0-16.0 % LAB L100.1000 Platelet Count 364 Normal 150-400 th/cmm Performed By: #### L100.0050 #### Main Laboratory ([facility]) [address] [place] [address] Regan Sahni MD SOCIAL WORK DAILY NOTE Observed: 025 4:11 PM Status: F Source: [facility] National Recruiter Patient: DIONNA CONCEPCION [address] : 1975 [place], [place] [address] Location: [phone] Unit #: [id number] Social Work Daily Note Marky W Geovani Service Date: 05/23/25 SW Daily Note - * Psychosocial Assessment * I have reviewed nursing and case management psychosocial information.: Yes - * Hospital Stay Days * Day 1 Note: 05/14/2025: SW c/s for Substance Abuse Screening. Tad Ambdwightr. CIWA. +tox for cannabinoids on admission. Hx of alcohol abuse. Enecphalopathy. Pt intubated overnight. National Recruiter to follow peripherally to discuss with pt when medically appropriate. Top Case Assembler: Yeimy Shah, BEST WORKER, AUTOMOBILE RENTAL AGENT Day 2 Note: 05/15/2025: SW following for Substance Abuse Screening. Tad Ambetter. CIWA. +tox for cannabinoids on admission. Hx of alcohol abuse- Wernickes Enecphalopathy. Pt remains intubated this date. KAYLENE updated by nursing staff that the pt's family is requesting pt d/c to a SNF in the [place], [place] area when medically ready for d/c. KAYLENE called and discussed this with pt's daughter, Maria Fernanda. Maria Fernanda reports most of the family lives between [place] and [place], so [place] would be a good middle location. KAYLENE briefly explained that pt will need to be able to participate with therapy in order for insurance to approve a SNF OR pt will need to have funds to private pay OR pt will need to have Medicaid. Maria Fernanda would like to see how the pt progresses to determine if it will be a short term or mcfp placement. Maria Fernanda reports she has not talked with her father in 3 years. Maria Fernanda is unaware of pt's finances and does not know of any POA paperwork that the pt has ever completed. Maria Fernanda stated that the pt is not legally to anyone. Maria Fernanda reports the pt has three living children: Maria Fernanda Betts PH: [phone], Beverly Concepcion PH: [phone] AND Dionna Concepcion PH: [phone]. Maria Fernanda reports Dionna will likely not want to participate in any decision making for the pt. KAYLENE explained that in [place] if there is no POA/Guardian and if pt is not legally , that any decisions will need to be a consensus between all living children. Maria Fernanda voiced understanding. Maria Fernanda would like to review a list of SNFs in [place], [place] to begin reviewing. Maria Fernanda reports her address is [address] [place] [id number]. A list of SNFs within 30 miles of Maria Fernanda's address with quality scores emailed to Maria Fernanda at [email or web address]. KAYLENE requested Maria Fernanda to provide a list of 5-10 choices as pt may be a difficult placement d/t history of alcohol abuse and insurance. D/c planning needs pending medical course. SW to continue following. Top Case Assembler: Yeimy Shah, DENISSE, KARLA Day 3 Note: 05/16/2025: SW following for Substance Abuse Screening. Pavan TRIPLETT. +tox for cannabinoids on admission. Hx of alcohol abuse- Wernickes Enecphalopathy. Pt remains intubated this date. D/c planning needs pending medical course. SW to continue following. Top Case Assembler: Yeimy Shah, DENISSE, KARLA Day 6 Note: 05-19-25 SW following for SNF/dc planning. JIMBO Crooks emailed pt daughter list of SNF options in [place]. DENISSE Crooks sent referral to [facility] for pt to be screened for PAUL benefit. Pt daughter gave choices of SNFs. Kaylene spoke with admissions of [facility] in [place] and faxed clinical referral to facility. Top Case Assembler: Marky Olivo Day 7 Note: 05-21-25 SW following for dc planning. DC plan curently pending. SNF referral sent to [facility] in [place] pt first choice and facility unable to accept. [facility] [place] Psych consult ordered. SW will continue to follow. Top Case Assembler: Marky Olivo day 8 Note: 05-22-25 KAYLENE communicated dc planning with pt daughter through email. Pt daughter planning to be at [facility] tomorrow for family meeting. Pt daughter would like to continue looking fo rSNF at dc. Pt evaluated by telepsych and recs for outpt services. KAYLENE faxed clinical referral to [facility] in [place] for review. Top Case Assembler: Marky Olivo day 9 Note: 05-23-25 SW and CM spoke with pt and family at bedside along with pt medical provider. KAYLENE and CM discussed LT care options at ia. Pt family continues to be agreeable to SNF. Family is interested in SNF placement residential between [place] and [place]. No preferenc eof facility just something residential for all family. KAYLENE sent referral to [facility] in [place] waiting on facility to review. Clinical referral also faxed to [facility] in [place] for review. Per Critical access hospital application was completed and submitted on 05-22. Top Case Assembler: Marky Olivo - * Information * Oriented to: Person Mental Status/Mood: Alert and Oriented - * Requested Intvs/Referrals * Top Case Assembler I Referrals: Substance Abuse Screening - Community Services/Interventions Substance Use Screening: Initiated - * HEALTHCARE DECISIONS * Living Will: Unknown Durable Power of Cable Splicer Helper for Health Care: No Directive, No SS Referral [facility] DNR Comfort Care: No Directive, No SS Referral [facility] DNR Comfort Care Arrest: No Directive, No SS Referral Entered by: Marky Olivo on 05/23/25 1608 Report Signed by: Marky Olivo on 05/23/25 1611 <<Signature on File>> <Electronically signed by Marky Olivo> Report Signed by: on PROGRESS NOTE NEUROLOGY Observed: 2024 4:11 PM Status: F Source: [facility] Medical Records Patient: CRAIGDIONNA READ [address] : 1975 [place], [place] [address] Location: [phone] Unit #: [id number] Progress Note Neurology Zack Valladares MD Service Dt/Tm: 05/23/25 1611 [facility] Tele[facility]urology Consult Services [facility] Routine Consult Follow-Up Patient Name: Dionna Concepcion Date of : 1975 Identification Number: Date of Service: 05/23/2025 15:48:53 Diagnosis ??? G93.41 - Encephalopathy Metabolic Impression f/u 05/23 : f/u 05/22 :49 years old male : Encephalopathy and L hemiparesis in the setting of chronic alcohol use w/ imaging suggestive of WE, infectious state, and remote infarctions. 05/20: speaks very slowly , stated his name , stated is in his dad's house, stated year is 1954, , when asked who's the president , rolled his eyes, appears to have dysconjugate eye movements , appears to ftn dysmetria , cannot comment on LE due to limited participation 05/21: alert, stated his name , in [facility], [facility]53, staed name of president, follows commands appropriately, nihss- 2, overall doing much better today 05/22: is irritable, using inappropriate language, non compliant , hence neuro exam is limited 05/23:has right nasal bleed, unknown reason Alert,stated his name, in hospital, 2053, trump, nihss-3 MRI BRAIN 05/12 : 1. No acute intracranial abnormality. Old cortical gyral ischemic infarcts with focal atrophy involving the right postcentral gyrus and right lateral occipitotemporal gyrus and smaller old cortical gyral ischemic infarct in the right middle frontal gyrus. TTE 05/12- ef 60-65% , no pfo CTA Head/neck 05/12 : no significant stenosis ldl 05/11- 171, goal < 70 trigly 160, goal < 150 EEG- NML mri brain -/+ final report pending - my review no pathologic enhancement , unchnaged w/o contrast compared to prior d/d ; encephalopathy- metabolic, cva ( prior) received thiamine iv 500mg q 8hrs for 3 days from 05/14 - then received 250mg iv thiamine for 3 days, until yesterday , continue for 7 more days folate 1mg daily hold : asa and plavix for now given nasal bleeding lipitor to 80mg daily pt/ot/speech therapy neurology follow Our recommendations are outlined below Subjective states Examination BP(120/86), Pulse(78), Temp(98.2), Resp(14), 4: Test Facial Palsy (Use Grimace if Obtunded) - Minor paralysis (flat nasolabial fold, smile asymmetry) + 1 5A: Test Left Arm Motor Drift - Drift, but doesn't hit bed + 1 6A: Test Left Leg Motor Drift - Drift, but doesn't hit bed + 1 NIHSS Score: 3 This consult was conducted in real time using interactive audio and video technology. Patient was informed of the technology being used for this visit and agreed to proceed. Patient located in hospital and provider located at home/office setting. Telehealth Neurology consultation was provided. I spent 25 minutes providing telehealth care. This includes time spent for face to face visit via telemedicine, review of medical records, imaging studies and discussion of findings with providers, the patient and/or family. Dr Zack Valladares [facility] For Inpatient follow-up with [facility] physician please call [facility] at . As we are not an outpatient service for any post hospital discharge needs please contact the hospital for assistance. If you have any questions for the [facility] physicians or need to reconsult for clinical or diagnostic changes please contact us via [facility] at Data: Last Vital Signs Temp Pulse Resp BP Pulse Ox O2 Flow RateFiO2 98.2 F 78 14 120/86 97 5 40 05/23/25 12:05/23/25 12:05/23/25 12:05/23/25 12:05/23/25 12:05/21/25 07:05/16/25 16: 00 00 00 00 00 53 30 Hematology WBC 11.4 H RBC 2.81 L Hgb 9.4 L Hct 27.8 L MCV 98.8 H MCH 33.5 H MCHC 33.9 RDW 18.5 H Plt Count 317 Chemistry Sodium 143 Potassium 4.1 4.0 Chloride 114 H Carbon Dioxide 23 Anion Gap 6 BUN 7 Creatinine 0.75 GFR Calculation > 60 Random Glucose 101 Calcium 8.80 Magnesium 1.7 L Patient was informed the Neurology Consult would happen via telehealth (remote video) and consented to receiving care in this manner. Entered by: Zack Valladares MD on 05/23/25 1611 Report Signed by: Zack Valladares MD on 05/23/25 1611 <<Signature on File>> <Electronically signed by Zack Valladares MD> Report Signed by: on PROGRESS NOTE INTERNAL MED Observed: 12:37 PM Status: F Source: [facility] Medical Records Patient: DIONNA CONCEPCION [address] : 1975 [place], [place] [address] Location: [phone] Unit #: [id number] Progress Note Internal Med Rekha Clifton MD Service Dt/Tm: 05/23/25 1232 Assessment/Plan (1) Wernickes encephalopathy: Status: Acute Plan: Patient with history of alcohol abuse and previous stroke with residual left- sided weakness (right MCA stroke in 01/28) presented with generalized weakness and confusion. CT head-no acute infarct. MRI is suspicious for Warnicke's encephalopathy. Neurology consult appreciated. Continue IV thiamine, multivitamin and folic acid. Continue aspirin, Plavix and high-dose of Lipitor (monitoring LFT). Psychiatry consult noted-no plan to start psychiatric medication for now. EEG-no epileptiform waves. Repeat MRI. May consider MINI. Will follow neurology recommendation. (2) Fatigue: Status: Acute Qualifiers: Fatigue type: unspecified Qualified Code(s): R53.83 - Other fatigue Plan: Generalized weakness. Continue PT/OT. (3) Left-sided weakness: Status: Chronic Plan: Patient has residual left-sided weakness from previous stroke in 01/28 (right MCA stroke). Echo-no PFO. Continue PT/OT. (4) History of right MCA stroke: Status: Chronic Plan: As above. (5) Gaze palsy: Status: Chronic Plan: 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 in January (6) Dehydration: Status: Resolved Plan: Received IV hydration (7) Fever: Status: Resolved Qualifiers: Fever type: unspecified Qualified Code(s): R50.9 - Fever, unspecified Plan: Patient had a fever. LFT was abnormal concerning for cholangitis. GI consulted-underwent ERCP with extraction of the gallstone. ID consulted appreciated. CT abdomen-05/13/2025 suggestive of diverticulitis. Treat for diverticulitis with IV Unasyn (or oral Augmentin) for total of 14 days (last date will be 05/26/2025). (8) Leukocytosis: Status: Resolved Qualifiers: Leukocytosis type: bandemia Qualified Code(s): D72.825 - Bandemia (9) Choledocholithiasis: Status: Resolved (10) CVA (cerebral vascular accident): Status: Chronic Qualifiers: CVA mechanism: unspecified Qualified Code(s): I63.9 - Cerebral infarction, unspecified Plan: Old infarct in MCA territory per imaging (11) Sinus tachycardia: Status: Resolved Plan: Treated and resolved (12) Alcoholism: Status: Chronic Plan: CIWA scale (13) On mechanically assisted ventilation: Status: Resolved Plan: Required intubation due to alteration in mental status Extubated 05/16/25 (14) Metabolic acidosis: Status: Resolved Plan: Treated and resolved (15) Alcohol withdrawal: Status: Ruled-out Qualifiers: Complication of substance-induced condition: with delirium Qualified Code(s): F10.931 - Alcohol use, unspecified with withdrawal delirium Plan: Out of the window MVI, thiamine, folic acid (16) GI bleed: Status: Ruled-out Qualifiers: GI bleed type/associated pathology: unspecified gastrointestinal hemorrhage type Qualified Code(s): K92.2 - Gastrointestinal hemorrhage, unspecified Plan: No evidence of GI bleed during ERCP 05/15/2025 PPI daily VTE prophylaxis (17) Septic shock: Status: Resolved Plan: Treated for septic shock with resolution Required vasopressor for hypotension (18) Sepsis: Status: Resolved Qualifiers: Sepsis type: sepsis due to unspecified organism Sepsis acute organ dysfunction status: unspecified Qualified Code(s): A41.9 - Sepsis, unspecified organism Plan: Likely secondary to acute choledocholithiasis/cholangitis WBC 13.4 -> 42.9 -> 25.3 -> 7.7 Procalcitonin 0.183 on admission Fever 100.5 Tachycardic 140 Lactic acid elevated 2.5 Respiratory panel negative ID and GI consulted as stated above. (19) Urinary retention: Status: Acute Plan: Freeman catheter placed for urinary retention. Voiding trial today. Plan DVT prophylaxis: Lovenox Disposition: Possibly to SNF. Subjective DIONNA CONCEPCION is a 49 yr old M who was admitted on 05/12/25 for RT MCA INFARCT/LT SIDED WEAKNESS. Subjective: Daughter and nursing staff at bedside. Patient is sitting down comfortably in a chair. No reported incident. All questions and concerns addressed by me. Objective Constitutional: Last Vital Signs Temp Pulse Resp BP Pulse Ox O2 Flow RateFiO2 98.4 F 84 14 124/84 97 5 40 05/23/25 08:05/23/25 08:05/23/25 08:05/23/25 08:05/23/25 08:05/21/25 07:05/16/25 16: 38 38 38 38 38 53 30 Intake and Output Intake Total 1646.26 1380.93 Output Total 850 875 Balance 796.26 505.93 Admitting (IV Pump) Weight 61.4 kg Actual Weight (Kg) 72 kg General Appearance: Resting Comfortably, Cooperative and Other (Awake but unable to understand his current situation. He follows command.) Eyes: PERRLA and EOMI Skin: Color Normal and Warm, Dry; No Diaphoresis Cardiovascular: Regular Rate and Rhythm and S1 S2 Lungs: Clear to Auscultate Bila and Good Air Entry; No Respiratory Distress Abdomen: Soft, Bowel Sounds and Other (Freeman catheter noted.); No Tender to palpation Extremities: Warm and Dry; No Edema Neurologic: Moves all extremities and Other (Oriented to person but not to time.) Psychological: Confused Data Labs: Magnesium 1.7 L WBC 11.4 H RBC 2.81 L Hgb 9.4 L Hct 27.8 L MCV 98.8 H MCH 33.5 H MCHC 33.9 RDW 18.5 H Plt Count 317 Sodium 143 Potassium 4.1 4.0 Chloride 114 H Carbon Dioxide 23 Anion Gap 6 BUN 7 Creatinine 0.75 Calcium 8.80 The last 24 hours of labs have been reviewed. Imaging: I have reviewed the diagnostic images in the EMR. Microbiology: Microbiology 05/14/25 05:30 Sputum - Luki Gram Stain - Final 05/14/25 05:30 Sputum - Luki Sputum Culture - Final Escherichia coli Serratia marcescens 05/13/25 06:54 Blood,Venous - Final Test not indicated 05/13/25 06:54 Blood,Venous Blood Culture - Final No growth after 5 days. 05/13/25 06:44 Blood,Venous - Final Test not indicated 05/13/25 06:44 Blood,Venous Blood Culture - Final No growth after 5 days. Medications and Comanagement: Medications reviewed separately. Pressure Injury/Pressure Area of Concern Sacrum: Site identified as: Area of Concern Provider Reviewed: Didn't assess today ??? findings per nursing; continue current treatment Entered by: Rekha Clifton on 05/23/25 1232 Report Signed by: Rekha Clifton MD on 05/23/25 1236 <<Signature on File>> <Electronically signed by Rekha Clifton MD> Report Signed by: on PALLIATIVE CONSULTATION Observed: 2024 12:24 PM Status: F Source: [facility] Medical Records Patient: DIONNA CONCEPCION [address] : 1975 [place], [place] [address] Location: [address] [place] [address] Unit #: [id number] Palliative Consultation Atiya Laurent [employer] Service Date: 05/23/25 Consult Information Consult Information Date of Admission: 05/12/25 Date of Consultation: 05/23/25 Time Seen: 11:00 Primary Care Provider: Primary Care Provider: Tay Camara MD Palliative Care Patient: No Palliative Care Consult - HPI HPI History of Present Illness: This is a 49 year old Male with history of recent CVA with residual left-sided weakness, paresthesias, and facial drooping, multiple falls, alcohol abuse, tobacoo use, and hypertension. He presented to the ED on 05/11/25 with reports of excessive fatigue and generalized weakness. CT head noted subacute right MCA infarct. MRI brain noted old infarctions. He was admitted to medical service. Hospitalization complicated by sepsis likely secondary to acute choledocholithiasis s/p MRCP and ERCP with stone extraction, chronic pancreatitis and diverticulitis, episode of unresponsiveness requiring intubation (05/14-05/16) and vasopressors, small bowel obstruction s/p NGT, alcohol withdrawal with delirium tremors, Wernickes encephalopathy, and possible aspiration s/p Modified barium study recommending regular diet with thin liquids. Neuro, GI, ID, general surgery consulted and following. EEG was normal. Psych consulted due to no improvement of encephalopathy. Saw yesterday, believes to be suffering from alcohol withdrawal delirium versus Wernicke???s encephalopathy versus post stroke delirium. Recommending continuing vitamins and providing resources for outpatient psychiatric follow-up. Palliative care consulted for goals of care. Patient seen and assessed on medical floor. Two daughters at bedside. Patient is sitting up in bed in no acute cardiopulmonary distress. He is awake and alert. He is oriented to self, states he is in [place] at some type of hospital. States he is 49 something years old does not know year. He reports knowing he is confused about multiple various details. He denies any pain or shortness of breath. Family states he has not had any other burdensome symptoms that they are aware of. Family meeting was had with hospitalist, case resource manager, social science research assistant, and myself. See various discipline notes for details on their conversation regarding their specific specialty. Goals of care conversation was had with family, see summary below. Review of Systems Other: Limited due to mentation. Pain Pain: Pain Assessment *Pain Flowsheet Start: 05/12/25 22:28 Freq: 0000,0400,0800,1200,1600,2000 Status: Active Protocol: Activity Type Activity Date Activity User E-sign Co-sign Detail Recorded Client Recorded Date Recorded By Document 05/23/25 08:50 BET [id number] 05/23/25 10:48 BET Pain Flowsheet Denies Pain -0- Denies Pain Present Pain Level Unable to Assess Quality [Abdomen] Ache Pattern [Abdomen] Intermittent Level of Sedation [Abdomen] Alert Allergies/Adverse Reactions No Known Drug Allergies Allergy (Verified 05/11/25 15:01) Home Medications amlodipine 10 mg tablet 10 mg PO DAILY 05/11/25 [Confirmed 05/11/25] aspirin 81 mg chewable tablet 1 tab PO DAILY 05/11/25 [Confirmed 05/11/25] omeprazole 20 mg capsule,delayed release 20 mg DAILY 05/21/25 [Confirmed 05/21/25] Past Medical History Medical History History of right MCA stroke Fatigue Chronic pancreatitis Alcoholism Metabolic encephalopathy Acute respiratory failure Smoker Hypertriglyceridemia Hypertension CVA (cerebral vascular accident) left sided defecits Past Surgical History Surgical History S/P rotator cuff repair Social History Caffeine Amount: 1-2/Day Current Type of Alcohol: Beer Current Alcohol Amount: Socially/Occasionally Smoking Status: Heavy tobacco smoker Type of Tobacco: Cigarettes Smoking Amount: 1 pack per day Family History Other No pertinent family history Palliative Care Consult -Exam Data Active Medications Generic Name Dose Route Start Last Admin Trade Name Logan PRN Reason Stop Dose Admin Amlodipine Besylate 10 mg 05/12/25 09:00 05/14/25 09:29 Amlodipine Besylate 10 Mg Tab PO 08/19/25 09:01 Not Given Aspirin 81 mg 05/12/25 09:00 05/23/25 08:41 Aspirin Chw 81 Mg Tab PO 08/19/25 09:01 81 mg Atorvastatin Calcium 80 mg 05/20/25 21:00 05/22/25 22:00 Atorvastatin Calcium 80 Mg Tab PO 08/27/25 21:01 80 mg Clopidogrel Bisulfate 75 mg 05/21/25 09:00 05/23/25 08:40 Clopidogrel Bisulfate 75 Mg Tab PO 08/28/25 09:01 75 mg Diphenhydramine HCl 25 mg 05/12/25 07:45 Diphenhydramine Hcl 25 Mg Cap PO 08/19/25 07:46 Docusate Sodium 100 mg 05/12/25 07:45 Docusate Sodium 100 Mg Cap PO 08/19/25 07:46 Electrolyte Protocol 1 christiane 05/12/25 07:45 Phosphorus Replacement Protocol 08/19/25 07:46 Electrolyte Protocol 1 christiane 05/12/25 07:45 Calcium Replacement Protocol 08/19/25 07:46 Electrolyte Protocol 1 05/12/25 07:45 Magnesium Replacement Protocol [facility] 08/19/25 07:46 Christiane Roper Electrolyte Protocol 1 05/12/25 07:45 Potassium Replacement Protocol [facility] 08/19/25 07:46 Christiane Roper Enoxaparin Sodium 40 mg 05/12/25 09:00 05/23/25 08:41 Enoxaparin Sodium 40 Mg/0.4 Ml SSC 08/19/25 09:01 40 mg yr Ethyl Alcohol 1 each 05/13/25 09:00 05/23/25 08:41 Nasal Antiseptic (Nozin Nasal [facility]BN[facility] 08/20/25 09:01 Not Given nitizer) 1 Ampule Fentanyl Citrate 50 mcg 05/14/25 10:50 05/20/25 16:55 Fentanyl Citrate 100 Mcg/2 Ml AmIV PUSH 08/21/25 10:51 50 mcg p Folic Acid 1 mg 05/20/25 09:00 05/23/25 08:40 Folic Acid 1 Mg Tab PO 08/27/25 09:01 1 mg Ampicillin Sodium/Sulbactam 100 mls @ 200 mls/hr 05/14/25 12:00 05/23/25 05:06 Sodium 3 gm/ Sodium Chloride IVPB 05/26/25 23:59 200 mls/hr Thiamine HCl 250 mg/ Sodium 52.5 mls @ 105 mls/hr 05/21/25 09:00 05/23/25 08:40 Chloride IVPB 05/26/25 09:29 105 mls/hr Lactobacillus Rhamnosus 1 ea 05/14/25 09:00 05/23/25 08:40 Lactobacillus Rhamnosus (Gg) 1 EPO 06/13/25 09:01 1 ea a Cap Magnesium 400 mg 05/23/25 08:00 05/23/25 08:41 Magnesium (250 Mg Elemental) OxiPO 05/23/25 14:01 400 mg de 400 Mg Tab Melatonin 3 mg 05/12/25 07:45 05/22/25 21:52 Melatonin 3 Mg Tab PO 08/19/25 07:46 3 mg Multivitamins/Minerals 1 tab 05/14/25 09:00 05/23/25 08:40 Multivitamin W Minerals 1 Each TPO 08/21/25 09:01 1 tab ab Nicotine 1 ptch 05/20/25 21:00 05/23/25 08:40 Nicotine 21 Mg/Day Patch 1 Each TD 08/27/25 21:01 1 [facility] Nutritional Formula 1 ea 05/22/25 12:00 05/22/25 11:38 Dietary Supplement (Ensure Plus)PO 08/29/25 12:01 1 ea Ondansetron HCl 4 mg 05/12/25 07:45 05/13/25 23:49 Ondansetron 4 Mg/2 Ml Vial IV PUSH 08/19/25 07:46 4 mg Pantoprazole Sodium 40 mg 05/20/25 09:00 05/23/25 08:40 Pantoprazole Delayed-Release 40 PO 08/27/25 09:01 40 mg Mg Tab Tramadol HCl 50 mg 05/22/25 05:38 Tramadol Hcl 50 Mg Tab PO 08/29/25 05:39 Vital Signs: Vital Signs - Last Set Temperature 98.4 F 05/23/25 08:38 Pulse Rate 84 05/23/25 08:38 Respiratory Rate 14 05/23/25 08:38 Blood Pressure 124/84 05/23/25 08:38 Oxygen Saturation% 97 05/23/25 08:38 Liters of Oxygen 5 05/21/25 07:53 FiO2 % Amount 40 05/16/25 16:30 Physical Exam Other: General: Chronically-ill appearing Male in no acute distress, minimally engages in conversation HENT: Normocephalic, external ears unremarkable, normal hearing, moist oral mucosa, no scleral icterus, nares patent Neck: Supple, non-tender, no JVD, no lymphadenopathy, trachea midline Lungs: Clear to auscultation, no wheezing or congestion, non-labored respirations without use of accessory muscles Cardiovascular: S1S2 normal, no murmur, gallop or edema. Radial and pedal pulses strong and equal Abdomen: Soft, non-tender, non-distended, normal bowel sounds Muskuloskeletal: No obvious deformity, normal range of motion and strength, no tenderness or swelling, generalized weakness Integumentary: Skin is warm, dry and pink Neurologic: Awake, alert, and oriented x1-2 Psychiatric: Calm Plan (1) Encounter for palliative care: Plan: PROGRAM TECHNICIAN described to the family the purpose of palliative care services. Explained what Palliative Care is and the philosophy behind it. Discussed that palliative care can help assist with symptom management such as pain, shortness of breath, and anxiety. Informed family that palliative care provides Advanced Care Planning, which includes discussions about goals of care, code status, living will, and power of real estate attorney for health care and if the family would like to hear further about this service; family agrees. Goals of Care: Patient unable to meaningfully participate in goals of care discussion due to waxing/waning mental status. Two daughters at bedside participate in conversation at bedside. Family states that they want to continue current level of care and treat any acute illness that arises in future. Their main goal is to get him placed at either a facility for rehab or [facility] care. They understand patient has been refusing majority of therapy evaluations. They do not believe patient can take care of himself independently at home. Family inquires on prognosis of Wernicke's Encephalopathy. Both hospitalist and myself discuss prognosis not predictable and varies depending on many factors. Did discuss possibility that current state is his new baseline. Family would like to take his plan/goals of care day by day and are cautiously optimistic of recovery. Code Status: Discussed in detail the differences between full code, DNR CCA, and DNR CC. After discussion, family elected Full Code. POA AND LW: None on file. He is not legally . Per the State of [place], his delegate decision makers are the majority of his adult children. Family verbalizes understanding and agrees with this plan. Discussed with RN, SW, CM, and hospitalist. Dr. Coffman was available for collaboration. Thank you for this consult. We will continue to follow patient throughout their hospitalization. Please contact inpatient palliative care for any questions, concerns, or change in patient status. Consult End Note Minutes Spent in Face to Face Web Development Manager with Patient: 58 cc: Atiya Laurent CNP; Tay Camara MD Dictated by: Atiya Laurent CNP on 05/23/25 1051 Entered by: Atiya Laurent CNP on 05/23/25 1051 Report Signed by: Atiya Laurent CNP on 05/23/25 1224 <<Signature on File>> <Electronically signed by Atiya Laurent CNP> Report Signed by: on CBC WITHOUT DIFFERENTIAL Collected: 5:10 AM Status: F Source: [facility] TYPE CODE TESTS RESULT OUT OF RANGE REFERENCE UNITS LAB L100.0100 WBC 11.4 High 4.4-10.5 th/cmm LAB L100.0300 RBC 2.81 Low 4.50-6.00 mil/cmm LAB L100.0400 Hemoglobin 9.4 Low 13.5-16.5 gm/dL LAB L100.0500 Hematocrit 27.8 Low 40.0-49.0 % LAB L100.0600 MCV 98.8 High 80-97 CU DEIDRA LAB L100.0700 MCH 33.5 High 27.5-33.0 PG LAB L100.0800 MCHC 33.9 Normal 33.0-36.0 gm/dL LAB L100.0900 RDW 18.5 High 12.0-16.0 % LAB L100.1000 Platelet Count 317 Normal 150-400 th/cmm Performed By: #### L100.0050 #### Main Laboratory ([facility]) [address] [place] [address] Regan Sahni MD BASIC METABOLIC,NON-FASTING Collected: 05/23/2025 5:10 AM Status: F Source: [facility] TYPE CODE TESTS RESULT OUT OF RANGE REFERENCE UNITS LAB L400.1400 Sodium 143 Normal 135-145 mEq/L LAB L400.1500 Potassium 4.0 Normal 3.6-5.0 mEq/L LAB L400.1600 Chloride 114 High 101-111 mEq/L LAB L400.1700 Carbon Dioxide 23 Normal 21-32 mEq/L LAB L400.1800 Anion Gap 6 Normal 4-12 LAB L400.1820 Glucose 101 Normal 70-110 mg/dL Result Comment: *This refere nce range applies to fasting specimens only. LAB L400.1835 BUN 7 Normal 7-20 mg/dL LAB L400.1840 Creatinine 0.75 Normal 0.60-1.30 mg/dL LAB L400.1845 GFR Calculation > 60 Normal Result Comment: Chronic Kidn ey Disease stages by NKDF Stage eGFR I >90 II 60-89 III 30-59 IV 15-29 V <15 or dialysis Note: Information regarding the eGFR equation used can be found at https://www.kidney.org/bqqf-oqxbd-kbggfgwa. AGE(years) AVERAGE GFR 50-59 93 ml/min/1.73 square meters Note:This result is normalized to 1.73 square meter body surface area. Height and weight are not factored. LAB L400.2100 Calcium 8.80 Normal 8.8-10.5 mg/dL Performed By: #### L400.5100 , L400.0152 #### Main Laboratory ([facility]) [address] [place] [address] Regan Sahni MD MAGNESIUM Collected: 07/18/202 5 5:10 AM Status: F Source: [facility] TYPE CODE TESTS RESULT OUT OF RANGE REFERENCE UNITS LAB L400.5100 Magnesium 1.7 Low 1.8-2.5 mg/dL Performed By: #### L400.5100 , L400.0152 #### Main Laboratory ([facility]) [address] [place] [address] Regan Sahni MD POTASSIUM Collected: 5 10:11 PM Status: F Source: [facility] TYPE CODE TESTS RESULT OUT OF RANGE REFERENCE UNITS LAB L400.1500 Potassium 4.1 Normal 3.6-5.0 mEq/L Performed By: #### L400.1500 #### Main Laboratory ([facility]) [address] [place] [address] Regan Sahni MD PROGRESS NOTE NEUROLOGY Observed: 2024 4:50 PM Status: F Source: [facility] Medical Records Patient: DIONNA CONCEPCION [address] : 1975 [place], [place] [address] Location: [phone] Unit #: [id number] Progress Note Neurology Zack Valladares MD Service Dt/Tm: 05/22/25 1649 [facility] Tele[facility] Consult Services Routine Consult Follow-Up Patient Name: Dionna Concepcion Date of : 1975 Identification Number: Date of Service: 05/22/2025 16:43:03 Diagnosis ??? G93.49 - Encephalopathy Multifactorial Impression f/u 05/22 :49 years old male : Encephalopathy and L hemiparesis in the setting of chronic alcohol use w/ imaging suggestive of WE, infectious state, and remote infarctions. 05/20: speaks very slowly , stated his name , stated is in his dad's house, stated year is 1954, , when asked who's the president , rolled his eyes, appears to have dysconjugate eye movements , appears to ftn dysmetria , cannot comment on LE due to limited participation 07/16: alert, stated his name , in [facility], year [birth year]53, staed name of president, follows commands appropriately, nihss- 2, overall doing much better today 05/22: is irritable, using inappropriate language, non compliant , hence neuro exam is limited MRI BRAIN 05/12 : 1. No acute intracranial abnormality. Old cortical gyral ischemic infarcts with focal atrophy involving the right postcentral gyrus and right lateral occipitotemporal gyrus and smaller old cortical gyral ischemic infarct in the right middle frontal gyrus. TTE 05/12- ef 60-65% , no pfo CTA Head/neck 05/12 : no significant stenosis ldl 05/11- 171, goal < 70 trigly 160, goal < 150 EEG- NML d/d ; encephalopathy- metabolic, cva ( prior) received thiamine iv 500mg q 8hrs for 3 days from 05/14 - then received 250mg iv thiamine for 3 days, until yesterday , continue for 7 more days folate 1mg daily - has had strokes in the past, : recommend to get MINI, will decide after eeg is done. asa 81mg daily lipitor to 80mg daily plavix 75mg p.o daily mri brain -/+ pt/ot/speech therapy neurology follow Our recommendations are outlined below Laboratory Studies : Lipid panel I ordered Hemoglobin A1c Nursing Recommendations : IV Fluids, avoid dextrose containing fluids, Maintain euglycemiaNeuro checks q4 hrs x 24 hrs and then per shiftHead of bed 30 degreesContinue with Telemetry Consultations : Recommend Speech therapy if failed dysphagia screenPhysical therapy/Occupational therapy Subjective laying down with hat covering his face Examination BP(120/97), Pulse(94), Temp(97.6), Resp(18), Neuro Exam: is irritable, using inappropriate language, non compliant , hence neuro exam is limited This consult was conducted in real time using interactive audio and video technology. Patient was informed of the technology being used for this visit and agreed to proceed. Patient located in hospital and provider located at home/office setting. Telehealth Neurology consultation was provided. I spent 25 minutes providing telehealth care. This includes time spent for face to face visit via telemedicine, review of medical records, imaging studies and discussion of findings with providers, the patient and/or family. Dr Zack Valladares [facility] For Inpatient follow-up with [facility] physician please call [facility] at . As we are not an outpatient service for any post hospital discharge needs please contact the hospital for assistance. If you have any questions for the [facility] physicians or need to reconsult for clinical or diagnostic changes please contact us via [facility] at [facility] TeleNeurology Consult Services Data: Last Vital Signs Temp Pulse Resp BP Pulse Ox O2 Flow RateFiO2 97.6 F 94 18 120/97 H 98 5 40 05/22/25 15:05/22/25 15:05/22/25 15:05/22/25 15:05/22/25 15:05/21/25 07:05/16/25 16: 16 16 16 16 16 53 30 Hematology WBC 13.7 H RBC 2.80 L Hgb 9.3 L Hct 27.3 L MCV 97.5 H MCH 33.3 H MCHC 34.2 RDW 18.6 H Plt Count 288 Neut % (Auto) 70.7 H Lymph % (Auto) 15.3 Mcdonough % (Auto) 11.7 H Eos % (Auto) 1.6 Baso % (Auto) 0.7 Nucleat RBC Rel Count 0.0 Absolute Neuts (auto) 9700 H Absolute Lymphs (auto) 2100 Absolute Monos (auto) 1600 H Absolute Eos (auto) 200 Absolute Basos (auto) 100 Anisocytosis 1+ Chemistry Sodium 141 Potassium 3.5 L Chloride 109 Carbon Dioxide 25 Anion Gap 7 BUN 9 Creatinine 0.65 GFR Calculation > 60 Random Glucose 109 Calcium 8.90 Magnesium 1.7 L Total Bilirubin 1.1 H Direct Bilirubin 0.4 H AST 36 ALT 49 H Alkaline Phosphatase 239 H Total Protein 5.7 L Albumin 3.2 L Patient was informed the Neurology Consult would happen via telehealth (remote video) and consented to receiving care in this manner. Entered by: Zack Valladares MD on 05/22/25 3631 Report Signed by: Zack Valladares MD on 05/22/25 165 <<Signature on File>> <Electronically signed by Zack Valladares MD> Report Signed by: on CASE MANAGEMENT DAILY NOTE Observed: 4:40 PM Status: F Source: [facility] Case Management Patient: DIONNA CONCEPCION [address] : 1975 [place], [place] [address] Location: [phone] [id number] Management Daily Note Beverly Mckeon RN Service Date: 05/22/25 Case Mgmt Daily Note - Plan of Care Wood Drilling Machine Operator Agrees with Attending and Consult Plan: Yes - Patient Preferences AND Goals What is the patient's preference?: New SNF Recommended acute discharge goals: New SNF - Hospital Stay Days Day 1 Comment: 05/11 - Spoke with patient at bedside. Patient has Pavan Huynh. PCP is Pam Camara. director of player personnel is his father, Dionna. Pharmacy is [facility]. Denies services, DME. He is independent of ADLS and drives. He lives with his brother and father in a 1 story home with no steps to enter. Denies LW/DPOA. Per primary nurse, Jenni, she states that EMS reported that family stated patient has been depressed and having trouble with his left side weakness from his stroke 2 months ago. Also states he has been falling at home. Wood Drilling Machine Operator: Ana Snyder, RN Day 2 Comment: 05/12 - Spoke with pt. MRI completed and pending results. Neuro following. PT/OT ordered and recommended IPR. Rehab consulted to review case and waiting on response. Wood Drilling Machine Operator: Shelbi Jackson Day 3 Comment: 05/13 Dispo pending medical course. IPR following, c/s placed 05/12. MRI B (-) for acute CVA. WBC 42.9. Lactic 3.7. BC/UA/Sputum Cx. IV Rocephin/IVF. PT/OT. Wood Drilling Machine Operator: Jimena Carcamo, RN Day 4 Comment: 05/14: Patient transferred to ICU overnight. Intubated. PEEP 5. FiO2 40%. Propofol. Versed. Levo. Vaso. IVP Solu Cortef QID. Seizure precautions. WBC 36.5. 05/13 blood cultures pending. IV unasyn Q6. ID following. MRCP today. Surgery following. SW d/t alcohol abuse. Needs TBD pending medical medical course. Wood Drilling Machine Operator: Sonja Mcmahan Day 5 Comment: 05/15: Patient remains intubated. PEEP 5. FiO2 30%. Versed. Levo. IVP Solu Cortef QID. IV ampicillin Q6. WBC 25.3. 05/14 sputum positive. 05/13 blood cultures negative to date. GI following, ERCP today. Surgery following. ID following. SW following d/t alcohol abuse. Needs TBD pending medical course. Wood Drilling Machine Operator: Sonja Mcmahan Day 6 Comment: 05/16: Patient remains intubated. PEEP 5. FiO2 30%. IVP Solu Cortef QID. LR @ 50. ID following. WBC 9.5. IV ampicillin Q6. Hgb 8.8. Needs TBD pending medical course and therapy recs post extubation. Wood Drilling Machine Operator: Sonja Mcmahan Comment: 05/19 Most recent CIWA 5. Daughter wanting SNF placement per previous CM. PTOT most recent recs IPR. Per nursing documentation, pt not alert and oriented. CM and CHECKER LOADER will speak with daugther further about DC planning. Pt will need a precert if SNF is planned. Currently on Unasyn per ID,Augmentin when stable or at the time of discharge. *Per [facility], they are following to see if pt is appropriate for IPR placement at DC. Message left for Daughter Maria Fernanda per primary nurse request. *No return call from daughter to CM. Per nursing staff daughter called the floor with concerns about DC planning. Email sent to daughter to discuss DC planning per daughters request. *email returned from daughter with SNF choices, [facility]- in [place], [place]. [facility] [place], [place]. [facility]- in [place], [place]. *[place] attempting to get information from daughter/pt brother for jail PAUL screening. Wood Drilling Machine Operator: Yeimy Metcalf, RN Comment: 05/20 Email this AM from daughter states she is interested in SNF facilities closer to [place] for her/siser and pt dad/brother so they can all visit pt. Daughter is requesting a family meeting for this wednesday 05/23 at 11am to discuss placement options. Pt will require precert once a facility is obtained. Wood Drilling Machine Operator: Yeimy Metcalf, RN Day 11 Comment: 05/21 Psych consult placed per attending. EEG ordered per neurology, possible LP per neurology notes. ID following, Unasyn active until 05/26. Telesitter present in room. Pt remains confused. [employer] attempting tank terminal gauger PAUL krunal with family. SNF choices given by daughter to CM and CHECKER LOADER in [place] and [place]. CHECKER LOADER working on placement. Awaiting psych consult to review further placement barriers. Wood Drilling Machine Operator: Yeimy Metcalf RN Day 12 Comment: 05/22 SW is working with patients daughter for placement note reads dc planning with pt daughter through email. Pt daughter planning to be at [facility] tomorrow for family meeting. Pt daughter would like to continue looking for SNF at [place]. Pt evaluated by telepsych and recs for outpt services. SW faxed clinical referral to [facility] in [place] for review. Wood Drilling Machine Operator: Beverly Mckeon, RN - Respiratory Equipment Does the patient use/have any of these devices at home?: N/A - Community Services Substance Use Screening: Initiated - * L * Length of Stay LOS (Including day of Admission and Discharge): 11 LOS Score: 5 - * A * Acuity on Admission ER Provider if admitted from ER (view): RGMAXO Was patient admitted to hospital via Emergency Dept? Score: 3 - * C * Comorbidities Select All Conditions that Apply: Cerebral Disease (Any previous stroke or transient ischemic attack) Comorbidities Total Score: 1 - * E * Emergency Department Visits # of ER visits,6mos prior to admit,excl this admits ER visit: 0 Enter this number or 4 (whichever is smaller): 0 - LACE SCORE LACE Score: 9 - ANTICIPATED DISCHARGE Anticipated Discharge Date: 05/23/25 Entered by: Beverly Mckeon RN on 05/22/25 1638 Report Signed by: Beverly Mckeon RN on 05/22/25 1640 <<Signature on File>> <Electronically signed by Beverly Mckeon RN> Co-Signed by: on PROGRESS NOTE INTERNAL MED Observed: 4:38 PM Status: F Source: [facility] Medical Records Patient: DIONNA CONCEPCION Danny [address] : 1975 [place], [place] [address] Location: [phone] [facility] [id number] [id number] Progress Note Internal Med Rekha Clifton MD Service Dt/Tm: 05/22/25 1616 Assessment/Plan (1) Wernickes encephalopathy: Status: Acute Plan: Patient with history of alcohol abuse and previous stroke with residual left- sided weakness (right MCA stroke in 01/28) presented with generalized weakness and confusion. CT head-no acute infarct. MRI is suspicious for Warnicke's encephalopathy. Neurology consult appreciated. Continue IV thiamine, multivitamin and folic acid. Continue aspirin, Plavix and high-dose of Lipitor (monitoring LFT). Psychiatry consult noted-no plan to start psychiatric medication for now. EEG is pending. Will follow neurology recommendation. (2) Fatigue: Status: Acute Qualifiers: Fatigue type: unspecified Qualified Code(s): R53.83 - Other fatigue Plan: Generalized weakness. Continue PT/OT. (3) Left-sided weakness: Status: Chronic Plan: Patient has residual left-sided weakness from previous stroke in 01/28 (right MCA stroke). Echo-no PFO. Continue PT/OT. (4) History of right MCA stroke: Status: Chronic Plan: As above. (5) Gaze palsy: Status: Chronic Plan: 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 in January (6) Dehydration: Status: Resolved Plan: Received IV hydration (7) Fever: Status: Resolved Qualifiers: Fever type: unspecified Qualified Code(s): R50.9 - Fever, unspecified Plan: Patient had a fever. LFT was abnormal concerning for cholangitis. GI consulted-underwent ERCP with extraction of the gallstone. ID consulted appreciated. CT abdomen-05/13/2025 suggestive of diverticulitis. Treat for diverticulitis with IV Unasyn (or oral Augmentin) for total of 14 days (last date will be 05/26/2025). (8) Leukocytosis: Status: Resolved Qualifiers: Leukocytosis type: bandemia Qualified Code(s): D72.825 - Bandemia (9) Choledocholithiasis: Status: Resolved (10) CVA (cerebral vascular accident): Status: Chronic Qualifiers: CVA mechanism: unspecified Qualified Code(s): I63.9 - Cerebral infarction, unspecified Plan: Old infarct in MCA territory per imaging (11) Sinus tachycardia: Status: Resolved Plan: Treated and resolved (12) Alcoholism: Status: Chronic Plan: CIWA scale (13) On mechanically assisted ventilation: Status: Resolved Plan: Required intubation due to alteration in mental status Extubated 05/16/25 (14) Metabolic acidosis: Status: Resolved Plan: Treated and resolved (15) Alcohol withdrawal: Status: Ruled-out Qualifiers: Complication of substance-induced condition: with delirium Qualified Code(s): F10.931 - Alcohol use, unspecified with withdrawal delirium Plan: Out of the window MVI, thiamine, folic acid (16) GI bleed: Status: Ruled-out Qualifiers: GI bleed type/associated pathology: unspecified gastrointestinal hemorrhage type Qualified Code(s): K92.2 - Gastrointestinal hemorrhage, unspecified Plan: No evidence of GI bleed during ERCP 05/15/2025 PPI daily VTE prophylaxis (17) Septic shock: Status: Resolved Plan: Treated for septic shock with resolution Required vasopressor for hypotension (18) Sepsis: Status: Resolved Qualifiers: Sepsis type: sepsis due to unspecified organism Sepsis acute organ dysfunction status: unspecified Qualified Code(s): A41.9 - Sepsis, unspecified organism Plan: Likely secondary to acute choledocholithiasis/cholangitis WBC 13.4 -> 42.9 -> 25.3 -> 7.7 Procalcitonin 0.183 on admission Fever 100.5 Tachycardic 140 Lactic acid elevated 2.5 Respiratory panel negative ID and GI consulted as stated above. (19) Urinary retention: Status: Acute Plan: Freeman catheter placed for urinary retention. Will consider voiding trial prior to discharge. Plan DVT prophylaxis: Lovenox Disposition: Possibly to SNF. Subjective DIONNA CONCEPCION is a 49 yr old M who was admitted on 05/12/25 for RT MCA INFARCT/LT SIDED WEAKNESS. Subjective: Brother at bedside. I called Maria Fernanda (daughter) at [phone] to update her on the current situation but she was not available. Patient is still confused and unable to comprehend his current situation. Objective Constitutional: Last Vital Signs Temp Pulse Resp BP Pulse Ox O2 Flow RateFiO2 97.6 F 94 18 120/97 H 98 5 40 05/22/25 15:05/22/25 15:05/22/25 15:05/22/25 15:05/22/25 15:05/21/25 07:05/16/25 16: 16 16 16 16 16 53 30 Intake and Output Intake Total 550 1646.26 360 Output Total 650 850 300 Balance -100 796.26 60 Admitting (IV Pump) Weight 61.4 kg Actual Weight (Kg) 71 kg General Appearance: Resting Comfortably, Cooperative and Other (Awake but unable to understand his current situation. He follows command.) Eyes: PERRLA and EOMI Skin: Color Normal and Warm, Dry; No Diaphoresis Cardiovascular: Regular Rate and Rhythm and S1 S2 Lungs: Clear to Auscultate Bila and Good Air Entry; No Respiratory Distress Abdomen: Soft, Bowel Sounds and Other (Freeman catheter noted.); No Tender to palpation Extremities: Warm and Dry; No Edema Neurologic: Moves all extremities and Other (Oriented to person but not to time.) Psychological: Confused Data Labs: Magnesium 1.7 L WBC 13.7 H RBC 2.80 L Hgb 9.3 L Hct 27.3 L MCV 97.5 H MCH 33.3 H MCHC 34.2 RDW 18.6 H Plt Count 288 Sodium 141 Potassium 3.5 L Chloride 109 Carbon Dioxide 25 Anion Gap 7 BUN 9 Creatinine 0.65 Calcium 8.90 The last 24 hours of labs have been reviewed. Imaging: I have reviewed the diagnostic images in the EMR. Microbiology: Microbiology 05/14/25 05:30 Sputum - Luki Gram Stain - Final 05/14/25 05:30 Sputum - Luki Sputum Culture - Final Escherichia coli Serratia marcescens 05/13/25 06:54 Blood,Venous - Final Test not indicated 05/13/25 06:54 Blood,Venous Blood Culture - Final No growth after 5 days. 05/13/25 06:44 Blood,Venous - Final Test not indicated 05/13/25 06:44 Blood,Venous Blood Culture - Final No growth after 5 days. Medications and Comanagement: Medications reviewed separately. Pressure Injury/Pressure Area of Concern Sacrum: Site identified as: Area of Concern Provider Reviewed: Didn't assess today ??? findings per nursing; continue current treatment Entered by: Rekha Clifton on 05/22/25 1616 Report Signed by: Rekha Clifton MD on 05/22/25 1638 <<Signature on File>> <Electronically signed by Rekha Clifton MD> Report Signed by: on SOCIAL WORK DAILY NOTE Observed: 025 3:58 PM Status: F Source: [facility] National Recruiter Patient: DIONNA CONCEPCION [address] : 1975 [place], [place] [address] Location: [address] [place] [address] Unit #: [id number] Social Work Daily Note Marky Olivo Service Date: 05/22/25 SW Daily Note - * Psychosocial Assessment * I have reviewed nursing and case management psychosocial information.: Yes - * Hospital Stay Days * Day 1 Note: 05/14/2025: SW c/s for Substance Abuse Screening. Tad Ambetter. CIWA. +tox for cannabinoids on admission. Hx of alcohol abuse. Enecphalopathy. Pt intubated overnight. National Recruiter to follow peripherally to discuss with pt when medically appropriate. Top Case Assembler: Yeimy Shah, DENISSE, KALRA Day 2 Note: 05/15/2025: KAYLENE following for Substance Abuse Screening. Tad Ambetter. CIWA. +tox for cannabinoids on admission. Hx of alcohol abuse- Wernickes Enecphalopathy. Pt remains intubated this date. KAYLENE updated by nursing staff that the pt's family is requesting pt d/c to a SNF in the [place], [place] area when medically ready for d/c. KAYLENE called and discussed this with pt's daughter, Maria Fernanda. Maria Fernanda reports most of the family lives between [place] and [place], so [place] would be a good middle location. KAYLENE briefly explained that pt will need to be able to participate with therapy in order for insurance to approve a SNF OR pt will need to have funds to private pay OR pt will need to have Medicaid. Maria Fernanda would like to see how the pt progresses to determine if it will be a short term or tank terminal gauger placement. Maria Fernanda reports she has not talked with her father in 3 years. Maria Fernanda is unaware of pt's finances and does not know of any POA paperwork that the pt has ever completed. Maria Fernanda stated that the pt is not legally to anyone. Maria Fernanda reports the pt has three living children: Maria Fernanda Betts PH: [phone], Beverly Concepcion PH: [phone] AND Dionna Concepcion PH: [phone]. Maria Fernanda reports Dionna will likely not want to participate in any decision making for the pt. KAYLENE explained that in [place] if there is no POA/Guardian and if pt is not legally , that any decisions will need to be a consensus between all living children. Maria Fernanda voiced understanding. Maria Fernanda would like to review a list of SNFs in [place], [place] to begin reviewing. Maria Fernanda reports her address is [address] [place] [id number]. A list of SNFs within 30 miles of Maria Fernanda's address with quality scores emailed to Maria Fernanda at [email or web address]. KAYLENE requested Maria Fernanda to provide a list of 5-10 choices as pt may be a difficult placement d/t history of alcohol abuse and insurance. D/c planning needs pending medical course. SW to continue following. Top Case Assembler: Yeimy Shah, DENISSE, KARLA Day 3 Note: 05/16/2025: SW following for Substance Abuse Screening. Pavan Huynh. UZIEL. +tox for cannabinoids on admission. Hx of alcohol abuse- Wernickes Enecphalopathy. Pt remains intubated this date. D/c planning needs pending medical course. SW to continue following. Top Case Assembler: Yeimy Shah, DENISSE, KARLA Day 6 Note: 05-19-25 SW following for SNF/dc planning. JIMBO Crooks emailed pt daughter list of SNF options in [place]. DENISSE Crooks sent referral to [facility] for pt to be screened for PAUL benefit. Pt daughter gave choices of SNFs. Kaylene spoke with admissions of [facility] in [place] and faxed clinical referral to facility. Top Case Assembler: Marky Olivo Day 7 Note: 05-21-25 SW following for dc planning. DC plan curently pending. SNF referral sent to [facility] in [place] pt first choice and facility unable to accept. Pt daughter possibly wanting SNF in between [place] and [place]. Psych consult ordered. SW will continue to follow. Top Case Assembler: Marky Olivo day 8 Note: 05-22-25 KAYLENE communicated dc planning with pt daughter through email. Pt daughter planning to be at [facility] tomorrow for family meeting. Pt daughter would like to continue looking fo rSNF at dc. Pt evaluated by telepsych and recs for outpt services. KAYLENE faxed clinical referral to [facility] in [place] for review. Top Case Assembler: Marky Olivo - * Information * Mental Status/Mood: Confused - * Requested Intvs/Referrals * Top Case Assembler I Referrals: Substance Abuse Screening - Community Services/Interventions Substance Use Screening: Initiated - * HEALTHCARE DECISIONS * Living Will: Unknown Durable Power of Cable Splicer Helper for Health Care: No Directive, No SS Referral [facility] DNR Comfort Care: No Directive, No SS Referral [facility] DNR Comfort Care Arrest: No Directive, No SS Referral Entered by: Marky Olivo on 05/22/25 1553 Report Signed by: Marky Olivo on 05/22/25 1558 <<Signature on File>> <Electronically signed by Marky Olivo> Report Signed by: on CONSULTATION - PSYCHIATRY Observed: 05/06 12:40 PM Status: F Source: [facility] Medical Records Patient: DIONNA CONCEPCION [address] : 1975 [place], [place] [address] Location: [address] [place] [address] [id number] - Psychiatry Lamont Clark DO Service Date: 05/22/25 Date of Consultation: 05/22/25 Consulting Provider: Lamont Clark DO [facility] Initial Consultation Patient Name: Jamey Villareal Date of : 1975 Identification Number: Date of consult 05/21/2025 Reason for consult/Chief Complaint: Encephalopathy This consult was performed using synchronous audio/video teleconferencing with patient's verbal informed consent. HPI: Patient is a 49-year-old male with history of alcohol abuse, cannabis and tobacco use, CVA 2 months ago with left-sided weakness, multiple falls who presented to the hospital 05/11 with complaint of excessive fatigue and generalized weakness for 2 months. Patient is currently being treated for Wernicke's encephalopathy, was intubated due to altered mental status, and extubated 05/16. Has been intermittently confused. Patient seen by neurology, EEG impression normal awake electroencephalogram. He is apparently much improved as of yesterday. Patient is on tramadol and fentanyl as needed. Most recent CIWA score of 2 this morning. Patient seen for interview awake alert and cooperative. Oriented to person and month only. He states that his location is [facility], at a place where people get help for alcohol and drugs. He states that he is there because he has been drinking quite a bit, has a lot going on in his life, with his family, his health, and wants to get better. I have family, the need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 per previous CM. PTOT most recent recs IPR. Per nursing documentation, pt not alert and oriented. CM and CHECKER LOADER will speak with daugther further about DC planning. Pt will need a precert if SNF is planned. Currently on Unasyn per ID,Augmentin when stable or at the time of discharge. *Per [facility], they are following to see if pt is appropriate for IPR placement at DC. Message left for Daughter Maria Fernanda per primary nurse request. *No return call from daughter to CM. Per nursing staff daughter called the floor with concerns about DC planning. Email sent to daughter to discuss DC planning per daughters request. *email returned from daughter with SNF choices, [facility] in [place], [place]. [facility] [place], [place]. [facility]- in [place], [place]. *Luz Mariae attempting to get information from daughter/pt brother for intermodal owner operator truck driver PAUL screening. Wood Drilling Machine Operator: Yeimy Metcalf, RN Day 10 Comment: 05/20 Email this AM from daughter states she is interested in SNF facilities closer to a middle point for her/siser and pt dad/brother so they can all visit pt. Daughter is requesting a family meeting for this wednesday 05/23 at 11am to discuss placement options. Pt will require precert once a facility is obtained. Wood Drilling Machine Operator: Yeimy Metcalf, RN - Respiratory Equipment Does the patient use/have any of these devices at home?: N/A - Community Services Substance Use Screening: Initiated - * L * Length of Stay LOS (Including day of Admission and Discharge): 9 LOS Score: 5 - * A * Acuity on Admission ER Provider if admitted from ER (view): [email or web address] Was patient admitted to hospital via Emergency Dept? Score: 3 - * C * Comorbidities Select All Conditions that Apply: Cerebral Disease (Any previous stroke or transient ischemic attack) Comorbidities Total Score: 1 - * E * Emergency Department Visits # of ER visits,6mos prior to admit,excl this admits ER visit: 0 Enter this number or 4 (whichever is smaller): 0 - LACE SCORE LACE Score: 9 - ANTICIPATED DISCHARGE Anticipated Discharge Date: 05/21/25 Entered by: Yeimy Metcalf RN on 05/20/25 1013 Report Signed by: Yeimy Metcalf RN on 05/21/25 1533 <<Signature on File>> <Electronically signed by Yeimy Metcalf RN> Co-Signed by: on CASE MANAGEMENT DAILY NOTE Observed: 3:33 PM Status: F Source: [facility] Case Management Patient: DIONNA CONCEPCION [address]. : 1975 [place], [place] [address] Location: [address] [place] [address] [facility] [id number] [id number] Case Management Daily Note Yeimy Metcalf RN Service Date: 05/19/25 Case Mgmt Daily Note - Plan of Care Wood Drilling Machine Operator Agrees with Attending and Consult Plan: Yes - Patient Preferences AND Goals What is the patient's preference?: Services to be Determined Recommended acute discharge goals: Services to be Determined - Hospital Stay Days Day 1 Comment: 05/11 - Spoke with patient at bedside. Patient has Pavan Huynh. PCP is Pam Camara. director of player personnel is his father, Dionna. [facility] Denies services, DME. He is independent of ADLS and drives. He lives with his brother and father in a 1 story home with no steps to enter. Denies LW/DPOA. Per primary nurse, Jenni, she states that EMS reported that family stated patient has been depressed and having trouble with his left side weakness from his stroke 2 months ago. Also states he has been falling at home. Wood Drilling Machine Operator: Ana Snydre, RN Day 2 Comment: 05/12 - Spoke with pt. MRI completed and pending results. Neuro following. PT/OT ordered and recommended IPR. Rehab consulted to review case and waiting on response. Wood Drilling Machine Operator: Shelbi Jackson Day 3 Comment: 05/13 Dispo pending medical course. IPR following, c/s placed 05/12. MRI B (-) for acute CVA. WBC 42.9. Lactic 3.7. BC/UA/Sputum Cx. IV Rocephin/IVF. PT/OT. Wood Drilling Machine Operator: Jimena Carcamo, RN Day 4 Comment: 05/14: Patient transferred to ICU overnight. Intubated. PEEP 5. FiO2 40%. Propofol. Versed. Levo. Vaso. IVP Solu Cortef QID. Seizure precautions. WBC 36.5. 8 blood cultures pending. IV unasyn Q6. ID following. MRCP today. Surgery following. SW d/t alcohol abuse. Needs TBD pending medical medical course. Wood Drilling Machine Operator: Sonja Mcmahan Day 5 Comment: 05/15: Patient remains intubated. PEEP 5. FiO2 30%. Versed. Levo. IVP Solu Cortef QID. IV ampicillin Q6. WBC 25.3. 05/14 sputum positive. 05/13 blood cultures negative to date. GI following, ERCP today. Surgery following. ID following. SW following d/t alcohol abuse. Needs TBD pending medical course. Wood Drilling Machine Operator: Sonja Mcmahan Day 6 Comment: 05/16: Patient remains intubated. PEEP 5. FiO2 30%. IVP Solu Cortef QID. LR @ 50. ID following. WBC 9.5. IV ampicillin Q6. Hgb 8.8. Needs TBD pending medical course and therapy recs post extubation. Wood Drilling Machine Operator: Sonja Mcmahan Day 9 Comment: 05/19 Most recent CIWA 5. Daughter wanting SNF placement per previous CM. PTOT most recent recs IPR. Per nursing documentation, pt not alert and oriented. CM and CHECKER LOADER will speak with daugther further about DC planning. Pt will need a precert if SNF is planned. Currently on Unasyn per ID,Augmentin when stable or at the time of discharge. *Per [facility], they are following to see if pt is appropriate for IPR placement at DC. Message left for Bhakti Irving per primary nurse request. *No return call from daughter to CM. Per nursing staff daughter called the floor with concerns about DC planning. Email sent to daughter to discuss DC planning per daughters request. *email returned from daughter with SNF choices, [facility]- in [place], [place]. [facility] [place], [place]. [facility] in [place], [place]. *[employer] attempting to get information from daughter/pt brother for intermodal owner operator truck driver PAUL screening. Wood Drilling Machine Operator: Yeimy Metcalf, RN - Respiratory Equipment Does the patient use/have any of these devices at home?: N/A - Community Services Substance Use Screening: Initiated - * L * Length of Stay LOS (Including day of Admission and Discharge): 8 LOS Score: 5 - * A * Acuity on Admission ER Provider if admitted from ER (view): [email or web address] Was patient admitted to hospital via Emergency Dept? Score: 3 - * C * Comorbidities Select All Conditions that Apply: Cerebral Disease (Any previous stroke or transient ischemic attack) Comorbidities Total Score: 1 - * E * Emergency Department Visits # of ER visits,6mos prior to admit,excl this admits ER visit: 0 Enter this number or 4 (whichever is smaller): 0 - LACE SCORE LACE Score: 9 - ANTICIPATED DISCHARGE Anticipated Discharge Date: 05/21/25 Entered by: Yeimy Metcalf RN on 05/19/25 0947 Report Signed by: Yeimy Metcalf RN on 05/21/25 1533 <<Signature on File>> <Electronically signed by Yeimy Metcalf RN> Co-Signed by: on CASE MANAGEMENT DAILY NOTE Observed: 3:33 PM Status: F Source: [facility] Case Management Patient: DIONNA CONCEPCION [address]. : 1975 [place], [place] [address] Location: [phone] Unit #: [id number] [facility] #: [id number] Case Management Daily Note Yeimy Metcalf RN Service Date: 05/21/25 Case Mgmt Daily Note - Plan of Care Wood Drilling Machine Operator Agrees with Attending and Consult Plan: Yes - Patient Preferences AND Goals What is the patient's preference?: Services to be Determined Recommended acute discharge goals: Services to be Determined - Hospital Stay Days Day 1 Comment: 05/11 - Spoke with patient at bedside. Patient has Pavan Huynh. PCP is Pam Camara. director of player personnel is his father, Dionna. [facility]acy is [facility] on [address] Denies services, ROSELIA. He is independent of ADLS and drives. He lives with his brother and father in a 1 story home with no steps to enter. Denies LW/DPOA. Per primary nurse, Jenni, she states that EMS reported that family stated patient has been depressed and having trouble with his left side weakness from his stroke 2 months ago. Also states he has been falling at home. Wood Drilling Machine Operator: Ana Snyder, RN Day 2 Comment: 05/12 - Spoke with pt. MRI completed and pending results. Neuro following. PT/OT ordered and recommended IPR. Rehab consulted to review case and waiting on response. Wood Drilling Machine Operator: Shelbi Jackson Day 3 Comment: 05/13 Dispo pending medical course. IPR following, c/s placed 05/12. MRI B (-) for acute CVA. WBC 42.9. Lactic 3.7. BC/UA/Sputum Cx. IV Rocephin/IVF. PT/OT. Wood Drilling Machine Operator: Jimena Carcamo, RN Day 4 Comment: 05/14: Patient transferred to ICU overnight. Intubated. PEEP 5. FiO2 40%. Propofol. Versed. Levo. Vaso. IVP Solu Cortef QID. Seizure precautions. WBC 36.5. 7/8 blood cultures pending. IV unasyn Q6. ID following. MRCP today. Surgery following. SW d/t alcohol abuse. Needs TBD pending medical medical course. Wood Drilling Machine Operator: Sonja Mcmahan Day 5 Comment: 05/15: Patient remains intubated. PEEP 5. FiO2 30%. Versed. Levo. IVP Solu Cortef QID. IV ampicillin Q6. WBC 25.3. 7/9 sputum positive. /8 blood cultures negative to date. GI following, ERCP today. Surgery following. ID following. SW following d/t alcohol abuse. Needs TBD pending medical course. Wood Drilling Machine Operator: Sonja Mcmahan Day 6 Comment: 05/16: Patient remains intubated. PEEP 5. FiO2 30%. IVP Solu Cortef QID. LR @ 50. ID following. WBC 9.5. IV ampicillin Q6. Hgb 8.8. Needs TBD pending medical course and therapy recs post extubation. Wood Drilling Machine Operator: Sonja Mcmahan Day 9 Comment: 05/19 Most recent CIWA 5. Daughter wanting SNF placement per previous CM. PTOT most recent recs IPR. Per nursing documentation, pt not alert and oriented. CM and CHECKER LOADER will speak with daugther further about DC planning. Pt will need a precert if SNF is planned. Currently on Unasyn per ID,Augmentin when stable or at the time of discharge. *Per [facility], they are following to see if pt is appropriate for IPR placement at DC. Message left for Daughter Maria Fernanda per primary nurse request. *No return call from daughter to CM. Per nursing staff daughter called the floor with concerns about DC planning. Email sent to daughter to discuss DC planning per daughters request. *email returned from daughter with SNF choices, [facility] in [place], [place]. [facility] [place], [place]. [facility] in [place], [place]. *[employer] attempting to get information from daughter/pt brother for intermodal owner operator truck driver PAUL screening. Wood Drilling Machine Operator: Yeimy Metcalf, RN Comment: 05/20 Email this AM from daughter states she is interested in SNF facilities closer to a middle point for her/siser and pt dad/brother so they can all visit pt. Daughter is requesting a family meeting for this wednesday 05/23 at 11am to discuss placement options. Pt will require precert once a facility is obtained. Wood Drilling Machine Operator: Yeimy Metcalf, RN Day Comment: 05/21 Psych consult placed per attending. Telesitter present in room. Pt remains confused. [employer] attempting [facility] PAUL krunal with family. SNF choices given by daughter to CM and CHECKER LOADER. CHECKER LOADER working on placement. Wood Drilling Machine Operator: Yeimy Metcalf, RN - Respiratory Equipment Does the patient use/have any of these devices at home?: N/A - Community Services Substance Use Screening: Initiated - * L * Length of Stay LOS (Including day of Admission and Discharge): 10 LOS Score: 5 - * A * Acuity on Admission ER Provider if admitted from ER (view): [email or web address] Was patient admitted to hospital via Emergency Dept? Score: 3 - * C * Comorbidities Select All Conditions that Apply: Cerebral Disease (Any previous stroke or transient ischemic attack) Comorbidities Total Score: 1 - * E * Emergency Department Visits # of ER visits,6mos prior to admit,excl this admits ER visit: 0 Enter this number or 4 (whichever is smaller): 0 - LACE SCORE LACE Score: 9 - ANTICIPATED DISCHARGE Anticipated Discharge Date: 05/21/25 Entered by: Yeimy Metcalf RN on 05/21/25 0959 Report Signed by: Yeimy Metcalf RN on 05/21/25 1533 <<Signature on File>> <Electronically signed by Yeimy Metcalf RN> Co-Signed by: on SOCIAL WORK DAILY NOTE Observed: 025 3:05 PM Status: F Source: [facility] National Recruiter Patient: DIONNA CONCEPCION [address] : 1975 [place], [place] [address] Location: [address] [place] [address] Unit #: [id number] Social Work Daily Note Marky Olivo Service Date: 05/21/25 KAYLENE Daily Note - * Psychosocial Assessment * I have reviewed nursing and case management psychosocial information.: Yes - * Hospital Stay Days * Day 1 Note: 05/14/2025: SW c/s for Substance Abuse Screening. Pavan ROLDANWA. +tox for cannabinoids on admission. Hx of alcohol abuse. Enecphalopathy. Pt intubated overnight. National Recruiter to follow peripherally to discuss with pt when medically appropriate. Top Case Assembler: Yeimy Shah, BEST WORKER, AUTOMOBILE RENTAL AGENT Day 2 Note: 05/15/2025: KAYLENE following for Substance Abuse Screening. Tad Ambetter. CIWA. +tox for cannabinoids on admission. Hx of alcohol abuse- Wernickes Enecphalopathy. Pt remains intubated this date. KAYLENE updated by nursing staff that the pt's family is requesting pt d/c to a SNF in the [place], [place] area when medically ready for d/c. KAYLENE called and discussed this with pt's daughter, Maria Fernanda. Maria Fernanda reports most of the family lives between [place] and [place], so [place] would be a good middle location. KAYLENE briefly explained that pt will need to be able to participate with therapy in order for insurance to approve a SNF OR pt will need to have funds to private pay OR pt will need to have Medicaid. Maria Fernanda would like to see how the pt progresses to determine if it will be a short term or mcfp placement. Maria Fernanda reports she has not talked with her father in 3 years. Maria Fernanda is unaware of pt's finances and does not know of any POA paperwork that the pt has ever completed. Maria Fernanda stated that the pt is not legally to anyone. Maria Fernanda reports the pt has three living children: Maria Fernanda [place] PH: [phone], [place] Jamey PH: [phone] AND Dionna Jamey PH: [phone]. Maria Fernanda reports Dionna will likely not want to participate in any decision making for the pt. KAYLENE explained that in [place] if there is no POA/Guardian and if pt is not legally , that any decisions will need to be a consensus between all living children. Maria Fernanda voiced understanding. Maria Fernanda would like to review a list of SNFs in [place], [place] to begin reviewing. Maria Fernanda reports her address is [address] [place] [address]. A list of SNFs within 30 miles of Maria Fernanda's address with quality scores emailed to Maria Fernanda at [email or web address]. KAYLENE requested Maria Fernanda to provide a list of 5-10 choices as pt may be a difficult placement d/t history of alcohol abuse and insurance. D/c planning needs pending medical course. SW to continue following. Top Case Assembler: Yeimy Shah, DENISSE, AUTOMOBILE RENTAL AGENT Day 3 Note: 05/16/2025: SW following for Substance Abuse Screening. Pavan TRIPLETT. +tox for cannabinoids on admission. Hx of alcohol abuse- Wernickes Enecphalopathy. Pt remains intubated this date. D/c planning needs pending medical course. SW to continue following. Top Case Assembler: Yeimy Shah, DENISSE, AUTOMOBILE RENTAL AGENT Day 6 Note: 05-19-25 SW following for SNF/dc planning. JIMBO Crooks emailed pt daughter list of SNF options in [place]. BEST WORKER Yeimy sent referral to [facility] for pt to be screened for PAUL benefit. Pt daughter gave choices of SNFs. Sw spoke with admissions of [facility] in [place] and faxed clinical referral to facility. Top Case Assembler: Marky Olivo Day 7 Note: 05-21-25 SW following for dc planning. DC plan curently pending. SNF referral sent to [facility] in [place] pt first choice and facility unable to accept. Pt daughter possibly wanting SNF in between [place] and [place]. Psych consult ordered. SW will continue to follow. Top Case Assembler: Marky Olivo - * Requested Intvs/Referrals * Top Case Assembler I Referrals: Substance Abuse Screening - Community Services/Interventions Substance Use Screening: Initiated - * HEALTHCARE DECISIONS * Living Will: Unknown Durable Power of Cable Splicer Helper for Health Care: No Directive, No SS Referral [facility] DNR Comfort Care: No Directive, No SS Referral State [facility] DNR Comfort Care Arrest: No Directive, No SS Referral Entered by: Marky Olivo on 05/21/25 1503 Report Signed by: Marky Olivo on 05/21/25 1505 <<Signature on File>> <Electronically signed by Marky Olivo> Report Signed by: on PROGRESS NOTE - HOSPITALIST Observed: 1:33 PM Status: F Source: [facility] Medical Records Patient: DIONNA CONCEPCION [address]. : 1975 [place], [place] [address] Location: [facility] [phone] Unit #: [id number] Progress Note - Hospitalist Yanely Lopez ([facility]) POWER BALLAST MACHINE OPERATOR Service Dt/Tm: 05/21/25 0835 Assessment/Plan Assessment/Plan (1) Wernickes encephalopathy: Status: Acute Plan: As identified on brain MRI and CT imaging Continue IV thiamine, IV folic acid, and MV Neurology consulted on 05/17/25, no note to reflect visit Teleneurology reconsulted, appreciate recommendations Neurology recommended psych consultation, this has been ordered Plavix 75mg daily added (2) Fatigue: Status: Acute Qualifiers: Fatigue type: unspecified Qualified Code(s): R53.83 - Other fatigue Plan: Reports fatigue today Electrolyte replacement per protocol Continue to monitor (3) Left-sided weakness: Status: Chronic Plan: Chief complaint of generalized weakness CT head/neck Hypodensity in the posterior right frontal lobe which may represent a subacute right MCA infarct No hemorrhage is identified No acute abnormality in the cervical spine CTA head/neck Negative MRI brain No acute intracranial abnormality Old cortical gyral ischemic infarcts with focal atrophy involving the right postcentral gyrus and right lateral occipitotemporal gyrus and smaller old cortical gyral ischemic infarct in the right middle frontal gyrus Repeat CT head Review of the prior MR shows findings highly suspicious for Wernicke encephalopathy, which will typically respond to prompt administration of IV thiamine Teleneurology consulted Continue ASA, statin, risk factor modification PT/OT evaluation and treatment Neurology recommends 30 days MCOT at DC given old cortical strokes on brain MRI, recommend (at least) 30 days of outpatient cardiac event monitoring (Or Implantable Loop Recorder) looking for occult paroxysmal Atrial Fibrillation Started on plavix daily Increase atorvastatin to 80 mg nightly (4) History of right MCA stroke: Status: Chronic Plan: CVA reported in January 2025 Old infarct in MCA territory per imaging (5) Gaze palsy: Status: Chronic Plan: 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 in January (6) Dehydration: Status: Resolved Plan: Received IV hydration (7) Fever: Status: Resolved Qualifiers: Fever type: unspecified Qualified Code(s): R50.9 - Fever, unspecified (8) Leukocytosis: Status: Resolved Qualifiers: Leukocytosis type: bandemia Qualified Code(s): D72.825 - Bandemia (9) Choledocholithiasis: Status: Resolved (10) CVA (cerebral vascular accident): Status: Chronic Qualifiers: CVA mechanism: unspecified Qualified Code(s): I63.9 - Cerebral infarction, unspecified Plan: Old infarct in MCA territory per imaging (11) Sinus tachycardia: Status: Resolved Plan: Treated and resolved (12) Septic shock: Status: Resolved Plan: Treated for septic shock with resolution Required vasopressor for hypotension (13) Alcoholism: Status: Chronic Plan: CIWA scale (14) On mechanically assisted ventilation: Status: Resolved Plan: Required intubation due to alteration in mental status Extubated 05/16/25 (15) Metabolic acidosis: Status: Resolved Plan: Treated and resolved (16) Alcohol withdrawal: Status: Ruled-out Qualifiers: Complication of substance-induced condition: with delirium Qualified Code(s): F10.931 - Alcohol use, unspecified with withdrawal delirium Plan: Out of the window MVI, thiamine, folic acid (17) GI bleed: Status: Ruled-out Qualifiers: GI bleed type/associated pathology: unspecified gastrointestinal hemorrhage type Qualified Code(s): K92.2 - Gastrointestinal hemorrhage, unspecified Plan: No evidence of GI bleed during ERCP 05/15/2025 PPI daily VTE prophylaxis (18) Sepsis: Status: Resolved Qualifiers: Sepsis acute organ dysfunction status: unspecified Sepsis type: sepsis due to unspecified organism Qualified Code(s): A41.9 - Sepsis, unspecified organism Plan: Likely secondary to acute choledocholithiasis WBC 13.4 -> 42.9 -> 25.3 -> 7.7 Procalcitonin 0.183 on admission Fever 100.5 Tachycardic 140 Lactic acid elevated 2.5 Respiratory panel negative Sepsis protocol initiated Received 2L NS + maintenance NS 100ml/hr Concern for for aspiration CXR Nonacute portable x-ray examination of the chest CT chest/abd/pelv Proximal duodenal wall thickening, periampullary diverticulum and adjacent stranding suggesting possibility of duodenitis/peptic ulcer disease, groove pancreatitis or periampullary diverticulitis No pulmonary airspace disease/pneumonia or pleural effusion Urinalysis negative Freeman catheter placed due to urinary retention Blood cultures negative Received IV Ceftriaxone ID consulted GI consulted Status post ERCP 05/15/2025 with removal of a gallstone *Septic shock treated and resolved Plan 57-year-old male with medical history of CVA, frequent falls, and alcohol abuse who was admitted on 05/11/25 for chief complaint of excessive fatigue and generalized weakness x2 months. Per patient report, was diagnosed with CVA 2 months ago and has left- sided weakness, paresthesias, and facial drooping since event. Workup revealed leukocytosis, hypokalemia, negative troponin level, negative procalcitonin. EKG shows sinus rhythm. 05/14: Patient transferred to ICU with increased encephalopathy, leukocytosis, tachycardic, tachypnea. ID on consult. Abd tender and guarded to palpation. Surgery consulted due to concerns for bowel perforation or other pathology. Pt intubated for airway protection. IV atb changed back to Zosyn. Treated for septic shock. 05/15: Decreasing pressor needs in the last 24 hours, no longer on vasopressin, continue hydrocortisone. Continue thiamine for Wernicke's encephalopathy. S/p ERCP [Ampulla inside the diverticulum, bile duct stone status post sphincterotomy stones extraction with the balloon]. 05/16: Improving. Off all vasopressors. Versed turned off. Remains encephalopathic, awake and moving all extremities but nothing to command or purposeful. Extubated. 05/17: No longer requiring vasopressors, hemodynamically stable. Intermittently encephalopathic. Restart VTE PPx, transition PPI to once daily, transfer out of ICU. 05/18: Seen on floor. Oriented x3 - name, place, month. Situationally confused. Hostile and agitated. Received IV Thiamine. 05/19: Nursing updated daughterMaria Fernanda regarding plan of care and current treatment. Oriented to name, place, month. Sitting in recliner. Vp Foundation consult for nutritional assessment and oral supplementation. Continue MV, folic acid, and thiamine. Teleneurology was reconsulted on 05/17/25 and there is no note indicating visit. Teleneurology reconsulted today re: Wernicke encephalopathy. 05/20: Patient went down for modified barium, patient remains confused, alert to only self. 05/21: Consulted psych, added Plavix daily Current Code Status AND Diet: 05/11/25 18:30 Code Status Routine Resuscitation Status: Full Code Code Status Order Placed: Code Status Ordered 05/11/25 at 1830 05/17/25 10:31 AHA Diet Diet Modifications: IDDSI- Soft AND Bite-Sized Texture: Mildly Thick Liquids Fluid Restrictions?: No Comment: MAGIC CUP BID Discussed Patient's Care With: Nurse Subjective Subjective: Primary Care Provider: Tay Camara MD Chief Complaint: RT MCA INFARCT/LT SIDED WEAKNESS Patient seen and examined at bedside this a.m. Patient is in the bedside chair, appears to be resting comfortably. He does state that he feels bad, would not describe how. He remains confused. Patient Status AND Estimated DC Date Patient Registration Status: Inpatient Objective Constitutional: Last Vital Signs Temp Pulse Resp BP Pulse Ox O2 Flow RateFiO2 98.9 F 82 16 140/84 98 5 40 05/21/25 08:05/21/25 08:05/21/25 08:05/21/25 08:05/21/25 08:05/21/25 07:05/16/25 16: 21 21 21 21 21 53 30 Intake and Output Intake Total 1357.48 550 Output Total 1525 650 Balance -167.52 -100 Admitting (IV Pump) Weight 61.4 kg Actual Weight (Kg) 71 kg General Appearance: Resting Comfortably, Cooperative and Other (Drowsy) Eyes: PERRLA ENT: Deferred Skin: Color Normal and Warm, Dry; No Diaphoresis Cardiovascular: Regular Rate and Rhythm and S1 S2 Lungs: Clear to Auscultate Bila and Good Air Entry; No Respiratory Distress Abdomen: Soft and Bowel Sounds; No Tender to palpation Extremities: Warm and Dry and Pedal Pulses; No Edema Neurologic: Moves all extremities and A AND O x1 Psychological: Confused Data Labs: Magnesium 1.8 WBC 12.7 H RBC 3.23 L Hgb 11.0 L Hct 31.7 L MCV 98.1 H MCH 34.0 H MCHC 34.7 RDW 19.2 H Plt Count 216 Sodium 138 Potassium 3.6 Chloride 104 Carbon Dioxide 25 Anion Gap 9 BUN 12 Creatinine 0.60 Calcium 9.10 The last 24 hours of labs have been reviewed. Imaging: I have reviewed the diagnostic images in the EMR. 05/20/25 13:30 XR Modified Barium Swallow Routine Microbiology: Microbiology 05/14/25 05:30 Sputum - Luki Gram Stain - Final 05/14/25 05:30 Sputum - Luki Sputum Culture - Final Escherichia coli Serratia marcescens 05/13/25 06:54 Blood,Venous - Final Test not indicated 05/13/25 06:54 Blood,Venous Blood Culture - Final No growth after 5 days. 05/13/25 06:44 Blood,Venous - Final Test not indicated 05/13/25 06:44 Blood,Venous Blood Culture - Final No growth after 5 days. Medications and Comanagement: Medications reviewed separately. Pressure Injury/Pressure Area of Concern Sacrum: Site identified as: Area of Concern Provider Reviewed: Didn't assess today ??? findings per nursing; continue current treatment Entered by: Yanely Lopez ([facility])EMMA on 05/21/25 0884 Report Signed by: Yanely Ivan ([facility]) John CARTER on 05/21/25 1333 <<Signature on File>> <Electronically signed by Yanely Lopez ([facility]) POWER BALLAST MACHINE OPERATOR> Report Signed by: on MODIFIED BARIUM SWALLOW REPORT Observed: 05/21/2025 9:21 AM Status: F Source: [facility] Speech Therapy Department Patient: DIONNA CONCEPCION [address]. : 1975 [place] [address] Location: [address] [place], [place] [id number] [id number] Modified Barium Swallow Report Nina Cleveland CCC-REAL TIME TRADER Service Date: 05/20/25 Speech Modified Barium Swallow - Modified Barium Swallow 2 Patient ID's Checked: Name, Patient at Risk for Falls: Yes Risk Intervention Performed: Transfer Belt Evaluation Date: 05/20/25 Start Time: 13:41 End Time: 13:58 Referring Physician: John Reason for Referral: Safe Intake Level - Patient History Patient History: 57-year-old male with past history of CVA. He presented to the emergency room of [facility] with chief complaints of excessive fatigue and generalized weakness since 2 months. He mentions being diagnosed with CVA 2 months ago and has left-sided weakness, paresthesias and facial drooping ever since then. He has history of multiple falls. Does not want to get evaluated. He mentions history of alcohol abuse. Lab data. CBC WBC 13.4, Hb 15, platelet count 342. Potassium 2.9, BUN 21, creatinine 0.73. Troponin 6,. Pro-Anibal 0.18. EKG suggestive of sinus rhythm. CT head suggestive of hypodensity in the posterior right frontal lobe which may represent a subacute right MCA infarct. He is provisionally diagnosed with subacute right MCA infarct with hypokalemia and was admitted to the floor under my service for further management. Stroke team consulted and MRI imaging of brain requested. Plan to continue aspirin 81 Mg OD, replace electrolytes and wait on MRI results. - Medical History Medical History: Medical History (Last Reviewed 05/15/25 @ 17:00 by Chris Velasquez MD) Acute respiratory failure Alcoholism Chronic pancreatitis CVA (cerebral vascular accident) left sided defecits Fatigue History of right MCA stroke Hypertension Hypertriglyceridemia Metabolic encephalopathy Smoker - Surgical History Surgical History: Surgical History (Last Reviewed 05/15/25 @ 17:00 by Chris Velasquez MD) S/P rotator cuff repair Behavorial Observation: Calm, Cooperative Hearing Status: Functional - Communication Cognition: Not Tested Speech Intelligibility: Functional Vocal Strength/Function: Functional Receptive Language: Functional Expressive Language: Functional - Oral Motor Skills Lingual: Functional Labial: Functional Buccal: Functional - Diet Level Current Diet Level: Regular Current Liquid Level: Mildly Thick (MT2) ([place] Consistency Liquid) - Videofluroscopic Procedure View Utilized: Lateral Presentation: Spoon, Cup, Straw Consistencies Tested: Solids, Pureed (PU4) (Dysphagia 1 Pureed), Thin Liquids - Dysphagia Oral: Functional Pharyngeal: Functional - Solid Aspiration: No Timing of Aspiration: Not Applicable Laryngeal Penetration: Not Applicable Mastication: Functional Vallecular Pooling: No Pooling Swallowing Initiation: No Delay Residue: No Residue Comment: Patient does masticate for long periods of time and then orally holds bolus for approximately 180 seconds. - Soft AND Bite Sized (SB6)(Dysphagia 3) Aspiration: Did not trial - Minced AND Moist (MM5)(Dysphagia 2) Aspiration: Did not trial - Pureed (PU4)(Dysphagia 1 Pureed) Aspiration: No Timing of Aspiration: Not Applicable Laryngeal Penetration: Not Applicable Delay in Swallow: Prespill to Valleculae, 1-2 Seconds Vallecular Pooling: No Pooling Swallowing Initiation: Mild Residue: No Residue Comment: Patient does masticate for long periods of time and then orally holds bolus for approximately 60-75 seconds. - Moderately Thick (MO3)(Honey) Aspiration: Did not trial - Mildly Thick (MT2)([place]) Aspiration: Did not trial - Thin Liquids Aspiration: Trace Timing of Aspiration: During the Swallow Type of Aspiration: Audible Patient Responses: Cueing Does Not Clear Laryngeal Penetration: Not Applicable Delay in Swallow: Prespill to Valleculae, Prespill to Pyriform, 1-2 Seconds Vallecular Pooling: No Pooling Swallowing Initiation: Mild Residue: No Residue Comment: Orally holding liquids for up to 30 seconds at times. - Other A-P Transport: Mild Base of Tongue Retraction: Functional Velar Elevation: Functional Pharyngeal Wall Movement: Functional Epiglottic Inversion: Functional Hyolaryngeal Excursion: Mild Cricopharyngeal Functioning: Functional - Precautions/Safe Eating Strategies Precautions/Safe Eating Strategies: Standard Pulmonary Precautions, Small Bites/Sips, Sit Up at 90 Degrees, Sit Up 30 Minutes After Meal, Eat Slowly, Dependent Feed, No Straws Overall Impressions: Patient presents with borderline dysphagia secondary to confusion. Patient trialed regular and puree with no aspiration or penetration, but patient does have prolonged mastication time, even with puree bolus. Patient trialed thin liquids via straw with trace aspiration during the swallow in 1/2 trials. Patient trialed thin liquids via cup with no aspiration or penetration noted. During aspiration event, patient was noted to be leaning anteriorly, which may have contributed to likelihood of penetration/aspiration. ST recommending regular with thin liquids, no straws and patient should remain upright without leaning anteriorly. Recommended Diet: Regular Recommended Liquid Diet: Thin Liquids - GOALS Tolerate diet advancement: Yes Perform timing/initiation/coordination: Yes Educate staff/family re: safe eating strategies: Yes - PLAN Therapy Warranted: Yes Rehab Potential: Fair Barriers to Learning: Comorbidities, Decreased Cognition, Decreased Cooperation # of Times per Week: 1-2 # of Minutes per Day: 10-20 Duration (in days): 14 cc: Dictated by: Nina ARTEAGA on 05/20/25 1401 Entered by: CHANDLER Blood on 05/20/25 1401 Report Signed by: Nina Cleveland on 05/21/25 0921 <<Signature on File>> <Electronically signed by Nina ARTEAGA> Co-Signed by: on BASIC METABOLIC,NON-FASTING Collected: 05/21/2025 4:20 AM Status: F Source: [facility] TYPE CODE TESTS RESULT OUT OF RANGE REFERENCE UNITS LAB L400.1400 Sodium 138 Normal 135-145 mEq/L LAB L400.1500 Potassium 3.6 Normal 3.6-5.0 mEq/L LAB L400.1600 Chloride 104 Normal 101-111 mEq/L LAB L400.1700 Carbon Dioxide 25 Normal 21-32 mEq/L LAB L400.1800 Anion Gap 9 Normal 4-12 LAB L400.1820 Glucose 86 Normal 70-110 mg/dL Result Comment: *This refere nce range applies to fasting specimens only. LAB L400.1835 BUN 12 Normal 7-20 mg/dL LAB L400.1840 Creatinine 0.60 Normal 0.60-1.30 mg/dL LAB L400.1845 GFR Calculation > 60 Normal Result Comment: Chronic Kidn ey Disease stages by NKDF Stage eGFR I >90 II 60-89 III 30-59 IV 15-29 V <15 or dialysis Note: Information regarding the eGFR equation used can be found at https://www.kidney.org/aygd-egykf-lsnayylu. AGE(years) AVERAGE GFR 50-59 93 ml/min/1.73 square meters Note:This result is normalized to 1.73 square meter body surface area. Height and weight are not factored. LAB L400.2100 Calcium 9.10 Normal 8.8-10.5 mg/dL Performed By: #### L400.5100 , L400.0152, L400.0302 #### Main Laboratory ([facility]) [address] [place] [address] Regan Sahni MD HEPATIC FUNCTION PANEL (LIVER) Collecte d: 05/21/2025 4:20 AM Status: F Source: [facility] TYPE CODE TESTS RESULT OUT OF RANGE REFERENCE UNITS LAB L400.1900 AST/SGOT 42 High 15-41 IU/L LAB L400.1950 Alk Phos 297 High 41-137 IU/L LAB L400.2000 Bili,Total 1.5 High 0.2-1.0 mg/dL LAB L400.2050 Bili,Direct 0.4 High 0.1-0.2 mg/dL LAB L400.2120 Albumin 3.3 Low 3.5-5.0 g/dL LAB L400.2140 Total Protein 6.1 Low 6.2-8.0 g/dL LAB L400.4400 ALT/SGPT 56 High 10-40 IU/L Performed By: #### L400.5100 , L400.0152, L400.0302 #### Main Laboratory ([facility]) [address] [place] [address] Regan Sahni MD MAGNESIUM Collected: 4:20 AM Status: F Source: [facility] TYPE CODE TESTS RESULT OUT OF RANGE REFERENCE UNITS LAB L400.5100 Magnesium 1.8 Normal 1.8-2.5 mg/dL Performed By: #### L400.5100 , L400.0152, L400.0302 #### Main Laboratory ([facility]) [address] [place] [address] Regan Sahni MD CBC WITHOUT DIFFERENTIAL Collected: 4:20 AM Status: F Source: [facility] TYPE CODE TESTS RESULT OUT OF RANGE REFERENCE UNITS LAB L100.0100 WBC 12.7 High 4.4-10.5 th/cmm LAB L100.0300 RBC 3.23 Low 4.50-6.00 mil/cmm LAB L100.0400 Hemoglobin 11.0 Low 13.5-16.5 gm/dL LAB L100.0500 Hematocrit 31.7 Low 40.0-49.0 % LAB L100.0600 MCV 98.1 High 80-97 CU DEIDRA LAB L100.0700 MCH 34.0 High 27.5-33.0 PG LAB L100.0800 MCHC 34.7 Normal 33.0-36.0 gm/dL LAB L100.0900 RDW 19.2 High 12.0-16.0 % LAB L100.1000 Platelet Count 216 Normal 150-400 th/cmm Performed By: #### L100.0050 #### Main Laboratory ([facility]) [address] [place] [address] Regan Sahni MD PROGRESS NOTE NEUROLOGY Observed: 2024 4:32 PM Status: F Source: [facility] Medical Records Patient: DIONNA CONCEPCION [address] : 1975 [place], [place] [address] Location: [phone] Unit #: [id number] Progress Note Neurology Zack Valladares MD Service Dt/Tm: 05/20/25 1632 [employer] Tele[facility]urology Consult Services [employer] [facility] Services Routine Consult Follow-Up Patient Name: Dionna Concepcion Date of : 1975 Identification Number: Date of Service: 05/20/2025 15:51:46 Diagnosis ??? G93.49 - Encephalopathy Multifactorial Impression f/u 05/20 : Encephalopathy and L hemiparesis in the setting of chronic alcohol use w/ imaging suggestive of WE, infectious state, and remote infarctions. MRI CTA TTE complete. LDL A1C complete. Plan: Hypercoagulation panel, if not previously performed. If embolic source is identified or lab work or telemetry, then patient can start anticoagulation for secondary stroke prevention. Continue ASA81 + HD statin for secondary stroke prevention. Vascular risk factor management; titrate A1c<7, LDL<70. Outpt Holter/Loop Recorder as outpatient with cardiology follow up Continued infectious management per ID. -- Can consider LP if patient does not continue to make appropriate recovery or shows worsening infectious signs. If performing LP or if patient is showing waxing and waning mentation, then consider EEG. Oral thiamine and multivitamin supplementation as long as the patient remains at risk. -- Acute WE management as listed below, if not already administered. PT/OT; and for dispo f/u outpatient w/ Neurology for secondary stroke prevention and cognitive evaluation. Further below. Please reconsult as necessary TODAY: speaks very slowly , stated his name , stated is in his dad's house, stated year is 1954, , when asked who's the president , rolled his eyes, appears to have dysconjugate eye movements , appears to ftn dysmetria , cannot comment on LE due to limited participation MRI BRAIN 05/12 : 1. No acute intracranial abnormality. Old cortical gyral ischemic infarcts with focal atrophy involving the right postcentral gyrus and right lateral occipitotemporal gyrus and smaller old cortical gyral ischemic infarct in the right middle frontal gyrus. TTE 05/12- ef 60-65% , no pfo CTA Head/neck 05/12 : no significant stenosis ldl 05/11- 171, goal < 70 trigly 160, goal < 150 d/d ; encephalopathy- metabolic, cva ( prior) received thiamine iv 500mg q 8hrs for 3 days from 05/14 - then received 250mg iv thiamine for 3 days, until yesterday , continue for 7 more days folate 1mg daily - has had strokes in the past, : recommend to get MINI, will decide after eeg is done. asa 81mg daily increase lipitor to 80mg daily add plavix 75mg p.o daily ordered eeg recommend psychiatry eval pt/ot/speech therapy neurology follow Our recommendations are outlined below Subjective about the same Examination BP(122/98), Pulse(96), Temp(98.8), Resp(18), Neuro Exam: speaks very slowly , stated his name , stated is in his dad's house, stated year is 1954, , when asked who's the president , rolled his eyes, appears to have dysconjugate eye movements , appears to ftn dysmetria , cannot comment on LE due to limited participation This consult was conducted in real time using interactive audio and video technology. Patient was informed of the technology being used for this visit and agreed to proceed. Patient located in hospital and provider located at home/office setting. Telehealth Neurology consultation was provided. I spent 25 minutes providing telehealth care. This includes time spent for face to face visit via telemedicine, review of medical records, imaging studies and discussion of findings with providers, the patient and/or family. Dr Zack Valladares [facility] For Inpatient follow-up with [facility] physician please call [facility] at . As we are not an outpatient service for any post hospital discharge needs please contact the hospital for assistance. If you have any questions for the [facility] physicians or need to reconsult for clinical or diagnostic changes please contact us via [facility] at Data: Last Vital Signs Temp Pulse Resp BP Pulse Ox O2 Flow RateFiO2 98.8 F 96 18 122/98 H 98 2 40 05/20/25 14:05/20/25 14:05/20/25 14:05/20/25 14:05/20/25 14:05/19/25 07:05/16/25 16: 38 38 38 38 38 35 30 Hematology WBC 14.4 H RBC 3.52 L Hgb 11.9 L Hct 34.4 L MCV 97.6 H MCH 33.7 H MCHC 34.5 RDW 19.2 H Plt Count 156 Chemistry Sodium 140 Potassium 4.1 Chloride 105 Carbon Dioxide 23 Anion Gap 12 BUN 11 Creatinine 0.54 L GFR Calculation > 60 Random Glucose 83 Calcium 9.20 Magnesium 1.6 L Patient was informed the Neurology Consult would happen via telehealth (remote video) and consented to receiving care in this manner. Entered by: Zack Valladares MD on 05/20/25 1639 Report Signed by: Zack Valladares MD on 05/20/25 1639 <<Signature on File>> <Electronically signed by Zack Valladares MD> Report Signed by: on PROGRESS NOTE - HOSPITALIST Observed: 3:06 PM Status: F Source: [facility] Medical Records Patient: DIONNA CONCEPCION [address] : 1975 [place], [place] [address] Location: [facility] [phone] Unit #: [id number] Progress Note - Hospitalist Yanely Lopez ([facility]) POWER BALLAST MACHINE OPERATOR Service Dt/Tm: 05/20/25 0827 Assessment/Plan Assessment/Plan (1) Wernickes encephalopathy: Status: Acute Plan: As identified on brain MRI and CT imaging Continue IV thiamine, IV folic acid, and MV Neurology consulted on 05/17/25, no note to reflect visit Teleneurology reconsulted today, appreciate recommendations (2) Fatigue: Status: Acute Qualifiers: Fatigue type: unspecified Qualified Code(s): R53.83 - Other fatigue Plan: Reports fatigue today Electrolyte replacement per protocol Continue to monitor (3) Left-sided weakness: Status: Chronic Plan: Chief complaint of generalized weakness CT head/neck Hypodensity in the posterior right frontal lobe which may represent a subacute right MCA infarct No hemorrhage is identified No acute abnormality in the cervical spine CTA head/neck Negative MRI brain No acute intracranial abnormality Old cortical gyral ischemic infarcts with focal atrophy involving the right postcentral gyrus and right lateral occipitotemporal gyrus and smaller old cortical gyral ischemic infarct in the right middle frontal gyrus Repeat CT head Review of the prior MR shows findings highly suspicious for Wernicke encephalopathy, which will typically respond to prompt administration of IV thiamine Teleneurology consulted Continue ASA, statin, risk factor modification PT/OT evaluation and treatment Neurology recommends 30 days MCOT at DC given old cortical strokes on brain MRI, recommend (at least) 30 days of outpatient cardiac event monitoring (Or Implantable Loop Recorder) looking for occult paroxysmal Atrial Fibrillation (4) History of right MCA stroke: Status: Chronic Plan: CVA reported in January 2025 Old infarct in MCA territory per imaging (5) Gaze palsy: Status: Chronic Plan: 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 in January (6) Dehydration: Status: Resolved Plan: Received IV hydration (7) Fever: Status: Resolved Qualifiers: Fever type: unspecified Qualified Code(s): R50.9 - Fever, unspecified (8) Leukocytosis: Status: Resolved Qualifiers: Leukocytosis type: bandemia Qualified Code(s): D72.825 - Bandemia (9) Choledocholithiasis: Status: Resolved (10) CVA (cerebral vascular accident): Status: Chronic Qualifiers: CVA mechanism: unspecified Qualified Code(s): I63.9 - Cerebral infarction, unspecified Plan: Old infarct in MCA territory per imaging (11) Sinus tachycardia: Status: Resolved Plan: Treated and resolved (12) Septic shock: Status: Resolved Plan: Treated for septic shock with resolution Required vasopressor for hypotension (13) Alcoholism: Status: Chronic Plan: CIWA scale (14) On mechanically assisted ventilation: Status: Resolved Plan: Required intubation due to alteration in mental status Extubated 05/16/25 (15) Metabolic acidosis: Status: Resolved Plan: Treated and resolved (16) Alcohol withdrawal: Status: Ruled-out Qualifiers: Complication of substance-induced condition: with delirium Qualified Code(s): F10.931 - Alcohol use, unspecified with withdrawal delirium Plan: Out of the window MVI, thiamine, folic acid (17) GI bleed: Status: Ruled-out Qualifiers: GI bleed type/associated pathology: unspecified gastrointestinal hemorrhage type Qualified Code(s): K92.2 - Gastrointestinal hemorrhage, unspecified Plan: No evidence of GI bleed during ERCP 05/15/2025 PPI daily VTE prophylaxis (18) Sepsis: Status: Resolved Qualifiers: Sepsis acute organ dysfunction status: unspecified Sepsis type: sepsis due to unspecified organism Qualified Code(s): A41.9 - Sepsis, unspecified organism Plan: Likely secondary to acute choledocholithiasis WBC 13.4 -> 42.9 -> 25.3 -> 7.7 Procalcitonin 0.183 on admission Fever 100.5 Tachycardic 140 Lactic acid elevated 2.5 Respiratory panel negative Sepsis protocol initiated Received 2L NS + maintenance NS 100ml/hr Concern for for aspiration CXR Nonacute portable x-ray examination of the chest CT chest/abd/pelv Proximal duodenal wall thickening, periampullary diverticulum and adjacent stranding suggesting possibility of duodenitis/peptic ulcer disease, groove pancreatitis or periampullary diverticulitis No pulmonary airspace disease/pneumonia or pleural effusion Urinalysis negative Freeman catheter placed due to urinary retention Blood cultures negative Received IV Ceftriaxone ID consulted GI consulted Status post ERCP 05/15/2025 with removal of a gallstone *Septic shock treated and resolved Plan 57-year-old male with medical history of CVA, frequent falls, and alcohol abuse who was admitted on 05/11/25 for chief complaint of excessive fatigue and generalized weakness x2 months. Per patient report, was diagnosed with CVA 2 months ago and has left- sided weakness, paresthesias, and facial drooping since event. Workup revealed leukocytosis, hypokalemia, negative troponin level, negative procalcitonin. EKG shows sinus rhythm. 05/14: Patient transferred to ICU with increased encephalopathy, leukocytosis, tachycardic, tachypnea. ID on consult. Abd tender and guarded to palpation. Surgery consulted due to concerns for bowel perforation or other pathology. Pt intubated for airway protection. IV atb changed back to Zosyn. Treated for septic shock. 05/15: Decreasing pressor needs in the last 24 hours, no longer on vasopressin, continue hydrocortisone. Continue thiamine for Wernicke's encephalopathy. S/p ERCP [Ampulla inside the diverticulum, bile duct stone status post sphincterotomy stones extraction with the balloon]. 05/16: Improving. Off all vasopressors. Versed turned off. Remains encephalopathic, awake and moving all extremities but nothing to command or purposeful. Extubated. 05/17: No longer requiring vasopressors, hemodynamically stable. Intermittently encephalopathic. Restart VTE PPx, transition PPI to once daily, transfer out of ICU. 05/18: Seen on floor. Oriented x3 - name, place, month. Situationally confused. Hostile and agitated. Received IV Thiamine. 05/19: Nursing updated daughterMaria Fernanda regarding plan of care and current treatment. Oriented to name, place, month. Sitting in recliner. Vp Foundation consult for nutritional assessment and oral supplementation. Continue MV, folic acid, and thiamine. Teleneurology was reconsulted on 05/17/25 and there is no note indicating visit. Teleneurology reconsulted today re: Wernicke encephalopathy. 05/20: Patient went down for modified barium, patient remains confused, alert to only self. Current Code Status AND Diet: 05/11/25 18:30 Code Status Routine Resuscitation Status: Full Code Code Status Order Placed: Code Status Ordered 05/11/25 at 1830 05/17/25 10:31 AHA Diet Diet Modifications: IDDSI- Soft AND Bite-Sized Texture: Mildly Thick Liquids Fluid Restrictions?: No Comment: MAGIC CUP BID Discussed Patient's Care With: Nurse Subjective Subjective: Primary Care Provider: Tay Camara MD Chief Complaint: RT MCA INFARCT/LT SIDED WEAKNESS Patient seen the bedside this a.m. Patient is in the bedside chair, remains confused, although he does know it is May. He is unaware that he is at the hospital, unaware why, and believes it is 1952. He also believes that his telemetry monitors his sisters old iPhone. He does report that he feels ill, reports it feels like he has the flu. Patient Status AND Estimated DC Date Patient Registration Status: Inpatient Objective Constitutional: Last Vital Signs Temp Pulse Resp BP Pulse Ox O2 Flow RateFiO2 98.0 F 96 18 141/104 H 98 2 40 05/20/25 08:05/20/25 08:05/20/25 08:05/20/25 08:05/20/25 08:05/19/25 07:05/16/25 16: 05 05 05 05 05 35 30 Intake and Output Intake Total 915.14 1357.48 Output Total 4325 1525 Balance -3409.86 -167.52 Admitting (IV Pump) Weight 61.4 kg Actual Weight (Kg) 71 kg General Appearance: Alert, Resting Comfortably and Cooperative Eyes: PERRLA ENT: Deferred Skin: Color Normal and Warm, Dry; No Diaphoresis Cardiovascular: Regular Rate and Rhythm and S1 S2 Lungs: Clear to Auscultate Bila and Good Air Entry; No Respiratory Distress Abdomen: Soft and Bowel Sounds; No Tender to palpation Extremities: Warm and Dry and Pedal Pulses; No Edema Neurologic: Moves all extremities and A AND O x1 Psychological: Confused Data Labs: Magnesium 1.7 L 1.6 L WBC 11.6 H 14.4 H RBC 3.31 L 3.52 L Hgb 11.2 L 11.9 L Hct 32.2 L 34.4 L MCV 97.2 H 97.6 H MCH 33.8 H 33.7 H MCHC 34.8 34.5 RDW 19.4 H 19.2 H Plt Count 83 L 156 Sodium 139 140 Potassium 3.2 L 4.1 Chloride 105 105 Carbon Dioxide 22 23 Anion Gap 12 12 BUN 11 11 Creatinine 0.61 0.54 L Calcium 9.00 9.20 The last 24 hours of labs have been reviewed. Imaging: I have reviewed the diagnostic images in the EMR. Microbiology: Microbiology 05/14/25 05:30 Sputum - Luki Gram Stain - Final 05/14/25 05:30 Sputum - Luki Sputum Culture - Final Escherichia coli Serratia marcescens 05/13/25 06:54 Blood,Venous - Final Test not indicated 05/13/25 06:54 Blood,Venous Blood Culture - Final No growth after 5 days. 05/13/25 06:44 Blood,Venous - Final Test not indicated 05/13/25 06:44 Blood,Venous Blood Culture - Final No growth after 5 days. Medications and Comanagement: Medications reviewed separately. Pressure Injury/Pressure Area of Concern Sacrum: Site identified as: Area of Concern Provider Reviewed: Didn't assess today ??? findings per nursing; continue current treatment Entered by: Yanely Lopez CNP (SCP) on 05/20/25 0827 Report Signed by: Yanely Lopez CNP (SCP) on 05/20/25 1506 <<Signature on File>> <Electronically signed by Yanely Lopez CNP (SCP)> Report Signed by: on CONSULTATION Observed: 05/20/2025 12:16 PM Status: F Source: [facility] Medical Records Patient: DIONNA CONCEPCION. : 1975 [place], [place] [address] Location: [phone] Unit #: [id number] Consultation Michelle Dale DO Dictation ID#: [id number] DATE OF CONSULTATION: 05/19/2025 CO-SIGNING PHYSICIAN: Damion A. Suyapa, D.O. REASON FOR CONSULTATION: Assess rehabilitation needs of a 49-year-old gentleman with significant debility. HISTORY OF PRESENT ILLNESS: Dionna Concepcion is a 49-year-old gentleman admitted on 05/12/2025 by the Hospital Service for right MCA infarct and left-sided weakness. He notes having abrupt weakness about 2-3 weeks prior to admission. MRI scan of his brain on 05/12/2025 revealed old cortical gyro ischemic infarcts in the right postcentral gyrus and right lateral occipital temporal gyrus and a small old cortical ischemic infarct in the right middle frontal gyrus. No new infarcts were noted. He incidentally had significantly elevated white count. He was transferred to the intensive care unit. He was diagnosed with septic shock. This is likely secondary to either diverticulitis and a combination of chronic pancreatitis. He also underwent alcohol withdrawal and was diagnosed with Wernicke's encephalopathy. He has been receiving IV thiamine. He has been on antibiotics followed by Dr. Serna. He is also being followed by general surgery. He underwent ERCP on 05/15/2025. He is now extubated, able to work with therapies, but noted significant weakness. REVIEW OF THERAPY NOTES: He is currently requiring maximum assistance to sit on the edge of the bed and maximum assistance for transfer from sit to stand and total assist from bed to chair transfer. Both therapies felt that he would benefit from inpatient rehab. PRIOR LEVEL OF FUNCTIONING: He was not using an assistive device, but lives with his Dad and his brother. He has a daughter that lives out of state. His brother works and his father is elderly. LABORATORY REVIEW: Hematology: White blood cell count 11.6, hemoglobin 11.2, hematocrit 32.2. Blood chemistry: Noncontributory. Random glucose 124, hemoglobin A1c 5.0, average glucose is 97. AST 78, ALT 105, alkaline phosphatase 346. Urinalysis was indicated for culture. Microbiology showed no growth. Respiratory culture on 05/14/2025 showed E. coli and Serratia marcescens. ALLERGIES: NO KNOWN DRUG ALLERGIES. HOME MEDICATIONS: Amlodipine and aspirin. For a full list of home medications as well as dose, route and special instructions, please refer to the Medication Snapshot under the Medication Tab in the EMR. PAST MEDICAL HISTORY: Right MCA stroke, fatigue, chronic pancreatitis, alcoholism, metabolic encephalopathy, smoking, and hypertension. PAST SURGICAL HISTORY: Rotator cuff repair. SOCIAL HISTORY: The patient drinks caffeine. He drinks beer socially. He is a heavy tobacco smoker of greater than a pack per day. FAMILY HISTORY: Not addressed. REVIEW OF SYSTEMS: Dionna was slow to answer at times, but he did answer correctly. He continues with mild encephalopathy. He denies any new pain. He states he feels weak all over. He denies difficulty with his bowels or bladder. Last documented stool was on 05/16/2025. He has an indwelling Freeman catheter for accurate intake and output. PHYSICAL EXAMINATION: VITAL SIGNS: Temperature 98.4, pulse 76, respirations 16, oxygenation 97% on room air. CONSTITUTIONAL: Dionna Concepcion is a 49-year-old gentleman who appears older than his stated age. He is in no acute distress. He is moving all four extremities. He has left-sided weakness that is mild at 4/5. Pedal push and pull is intact. Sensation is intact in all four extremities. Negative Babinski and Gretta sign. COGNITION: He is alert and oriented, but slow to answer at times. Difficulty with some higher level functioning. IMPRESSION: 1. A 49-year-old gentleman with remote CVA, right MCA resulting in mild left- sided weakness. 2. Alcoholic Wernicke's encephalopathy. 3. Septic shock due to diverticulitis and chronic pancreatitis. 4. Status post ERCP on 05/15/2025. 5. History of ventilator support from 05/14 to 05/16/2025. PLAN: I was talking with Dionna about discharge plans. He will need significant support after discharge from inpatient rehab. Case Management is discussing this with the family and helping make the best decision for Dionna at this time. He would likely need extensive rehab, but would need to be able to discharge home in a short period of time and it does not appear that this would be a safe discharge as he lives with his elderly father and a brother who works during the day. We will continue to follow to see how he does with therapies. Case Management and National Recruiter will assist with his discharge planning. cc: Damion Dale DO; Tay Camara MD Dictated by: Michelle Moise CNP on 05/19/25 1157 Transcribed by: Pooja Jarrell on 05/19/25 1226 Report Signed by: Michelle Moise CNP on 05/20/25 1100 <<Signature on File>> <Electronically signed by Michelle Moise POWER BALLAST MACHINE OPERATOR> Co-Signer: Damion Dale DO on 05/20/25 1216 <<Signature on File>> <Electronically signed by Damion Dale DO> BASIC METABOLIC,NON-FASTING Collected: 05/20/2025 6:32 AM Status: F Source: [facility] TYPE CODE TESTS RESULT OUT OF RANGE REFERENCE UNITS LAB L400.1400 Sodium 140 Normal 135-145 mEq/L LAB L400.1500 Potassium 4.1 Normal 3.6-5.0 mEq/L LAB L400.1600 Chloride 105 Normal 101-111 mEq/L LAB L400.1700 Carbon Dioxide 23 Normal 21-32 mEq/L LAB L400.1800 Anion Gap 12 Normal 4-12 LAB L400.1820 Glucose 83 Normal 70-110 mg/dL Result Comment: *This refere nce range applies to fasting specimens only. LAB L400.1835 BUN 11 Normal 7-20 mg/dL LAB L400.1840 Creatinine 0.54 Low 0.60-1.30 mg/dL LAB L400.1845 GFR Calculation > 60 Normal Result Comment: Chronic Kidn ey Disease stages by NKDF Stage eGFR I >90 II 60-89 III 30-59 IV 15-29 V <15 or dialysis Note: Information regarding the eGFR equation used can be found at https://www.kidney.org/enuk-qgxnu-qlwgznet. AGE(years) AVERAGE GFR 50-59 93 ml/min/1.73 square meters Note:This result is normalized to 1.73 square meter body surface area. Height and weight are not factored. LAB L400.2100 Calcium 9.20 Normal 8.8-10.5 mg/dL Performed By: #### L400.0152 , L400.5100 #### Main Laboratory ([facility]) [address] [place] [address] Regan Sahni MD MAGNESIUM Collected: 6:32 AM Status: F Source: [facility] TYPE CODE TESTS RESULT OUT OF RANGE REFERENCE UNITS LAB L400.5100 Magnesium 1.6 Low 1.8-2.5 mg/dL Performed By: #### L400.0152 , L400.5100 #### Main Laboratory ([facility]) [address] [place] [address] Regan Sahni MD CBC WITHOUT DIFFERENTIAL Collected: 6:32 AM Status: F Source: [facility] TYPE CODE TESTS RESULT OUT OF RANGE REFERENCE UNITS LAB L100.0100 WBC 14.4 High 4.4-10.5 th/cmm LAB L100.0300 RBC 3.52 Low 4.50-6.00 mil/cmm LAB L100.0400 Hemoglobin 11.9 Low 13.5-16.5 gm/dL LAB L100.0500 Hematocrit 34.4 Low 40.0-49.0 % LAB L100.0600 MCV 97.6 High 80-97 CU DEIDRA LAB L100.0700 MCH 33.7 High 27.5-33.0 PG LAB L100.0800 MCHC 34.5 Normal 33.0-36.0 gm/dL LAB L100.0900 RDW 19.2 High 12.0-16.0 % LAB L100.1000 Platelet Count 156 Normal 150-400 th/cmm Performed By: #### L100.0050 #### Main Laboratory ([facility]) [facility] [place] [address] Regan Sahni MD SOCIAL WORK DAILY NOTE Observed: 025 4:12 PM Status: F Source: [facility] National Recruiter Patient: DIONNA CONCEPCION [address] : 1975 [place], [place] [address] Location: [phone] Unit #: [id number] Social Work Daily Note Marky Olivo Service Date: 05/19/25 Daily Note - * Psychosocial Assessment * I have reviewed nursing and case management psychosocial information.: Yes - * Hospital Stay Days * Day 1 Note: 05/14/2025: KAYLENE c/s for Substance Abuse Screening. Pavan TRIPLETT. +tox for cannabinoids on admission. Hx of alcohol abuse. Enecphalopathy. Pt intubated overnight. National Recruiter to follow peripherally to discuss with pt when medically appropriate. Top Case Assembler: Yeimy Shah, BEST WORKER, AUTOMOBILE RENTAL AGENT Day 2 Note: 05/15/2025: KAYLENE following for Substance Abuse Screening. Pavan Huynh. YULIWA. +tox for cannabinoids on admission. Hx of alcohol abuse- Wernickes Enecphalopathy. Pt remains intubated this date. KAYLENE updated by nursing staff that the pt's family is requesting pt d/c to a SNF in the [place], [place] area when medically ready for d/c. KAYLENE called and discussed this with pt's daughter, Maria Fernanda. Maria Fernanda reports most of the family lives between [place] and [place], so [place] would be a good middle location. KAYLENE briefly explained that pt will need to be able to participate with therapy in order for insurance to approve a SNF OR pt will need to have funds to private pay OR pt will need to have Medicaid. Maria Fernanda would like to see how the pt progresses to determine if it will be a short term or mcfp placement. Maria Fernanda reports she has not talked with her father in 3 years. Maria Fernanda is unaware of pt's finances and does not know of any POA paperwork that the pt has ever completed. Maria Fernanda stated that the pt is not legally to anyone. Maria Fernanda reports the pt has three living children: Maria Fernanda Glynn PH: [phone], Beverly Concepcion PH: [phone] AND Dionna Jamey PH: [phone]. Maria Fernanda reports Dionna will likely not want to participate in any decision making for the pt. KAYLENE explained that in [place] if there is no POA/Guardian and if pt is not legally , that any decisions will need to be a consensus between all living children. Maria Fernanda voiced understanding. Maria Fernanda would like to review a list of SNFs in [place], [place] to begin reviewing. Maria Fernanda reports her address is [address] [place] [id number]. A list of SNFs within 30 miles of Maria Fernanda's address with quality scores emailed to Maria Fernanda at [email or web address]. KAYLENE requested Maria Fernanda to provide a list of 5-10 choices as pt may be a difficult placement d/t history of alcohol abuse and insurance. D/c planning needs pending medical course. SW to continue following. Top Case Assembler: Yeimy Shah, DENISSE, KARLA Day 3 Note: 05/16/2025: SW following for Substance Abuse Screening. Pavan Huynh. UZIEL. +tox for cannabinoids on admission. Hx of alcohol abuse- Wernickes Enecphalopathy. Pt remains intubated this date. D/c planning needs pending medical course. SW to continue following. Top Case Assembler: Yeimy Shah, DENISSE, KARLA Day 6 Note: 05-19-25 SW following for SNF/dc planning. JIMBO Crooks emailed pt daughter list of SNF options in [place]. DENISSE Crooks sent referral to [facility] for pt to be screened for PAUL benefit. Pt daughter gave choices of SNFs. Sw spoke with admissions of [facility] in [place] and faxed clinical referral to facility. Top Case Assembler: Marky Olivo - * Requested Intvs/Referrals * Top Case Assembler I Referrals: Substance Abuse Screening - Community Services/Interventions Substance Use Screening: Initiated - * HEALTHCARE DECISIONS * Living Will: Unknown Durable Power of Cable Splicer Helper for Health Care: No Directive, No SS Referral [facility] DNR Comfort Care: No Directive, No SS Referral [facility] DNR Comfort Care Arrest: No Directive, No SS Referral Entered by: Marky Olivo on 05/19/25 1609 Report Signed by: Marky Olivo on 05/19/25 1612 <<Signature on File>> <Electronically signed by Marky Olivo> Report Signed by: on CONSULTATION - TELENEUROLOGY Observed: 0 05/19/2025 4:01 PM Status: F Source: [facility] Medical Records Patient: DIONNA CONCEPCION [address] : 1975 [place], [place] [address] Location: [phone] Unit #: [id number] Consultation - TeleNeurology Lorelei Quevedo DO Service Date: 05/19/25 [facility] Tele[facility] Consult Services Date of Consultation: 05/19/25 Consulting Provider: Abhisek U Achar, DO [facility] TeleNeurology Consult Services Stat Consult Patient Name: Dionna Concepcion Date of : 1975 Identification Number: Date of Service: 05/19/2025 11:27:24 Diagnosis: ??? G93.49 - Encephalopathy Multifactorial ??? I63.40 - Cerebrovascular accident (CVA) due to embolism of other cerebral artery (HCCC) Impression Encephalopathy and L hemiparesis in the setting of chronic alcohol use w/ imaging suggestive of WE, infectious state, and remote infarctions. MRI CTA TTE complete. LDL A1C complete. Plan: Hypercoagulation panel, if not previously performed. If embolic source is identified or lab work or telemetry, then patient can start anticoagulation for secondary stroke prevention. Continue ASA81 + HD statin for secondary stroke prevention. Vascular risk factor management; titrate A1c<7, LDL<70. Outpt Holter/Loop Recorder as outpatient with cardiology follow up Continued infectious management per ID. -- Can consider LP if patient does not continue to make appropriate recovery or shows worsening infectious signs. If performing LP or if patient is showing waxing and waning mentation, then consider EEG. Oral thiamine and multivitamin supplementation as long as the patient remains at risk. -- Acute WE management as listed below, if not already administered. PT/OT; and for dispo f/u outpatient w/ Neurology for secondary stroke prevention and cognitive evaluation. Further below. Please reconsult as necessary Recommendations: Our recommendations are outlined below. Laboratory Studies : Check B12/folate TSH Medications : Thiamine 500mg TID X 2 days then 250mg IV daily for 5 days then 100mg daily PO Folic acid Nursing Recommendations : Delirium precautions: Blinds open during the day, closed at night, frequent reorientation, minimize nighttime interruptions When possible avoid benzodiazepines, opioid pain medications, and anticholinergic medications Consultations : Toxic metabolic work up per primary team DVT Prophylaxis : Choice of Primary Team Disposition : Neurology will sign off. Reconsult if Needed. Outpatient Neurology follow up in 1-3 weeks ----- ----- Metrics: Dispatch Time: 05/19/2025 11:24:42 Callback Response Time: 05/19/2025 11:28:37 ED Physician not notified of diagnostic impression and management plan because Discussed with primary team. Please call/page for additional questions. CT HEAD: CT head unremarkable for acute infarction or hemorrhage per Radiology: CT head unremarkable for acute infarction or hemorrhage per Radiology Imaging CT 05/14 shows no acute changes; chronic changes suggestive of WE. CTA Head and Neck no Large Vessel Occlusion TTE: EF Normal, no PFO, no Thrombus reported Brain MRI: 1. No acute intracranial abnormality. 2. Old cortical gyral ischemic infarcts with focal atrophy involving the right postcentral gyrus and right lateral occipitotemporal gyrus and smaller old cortical gyral ischemic infarct in the right middle frontal gyrus. Labs LDL 171 HbA1c 5 ----- ----- Chief Complaint: AMS, stroke. History of Present Illness: Patient is a 49 year old Male. Patient seen and examined at bedside. Nursing reports he is full assist. Patient notes he has had a stroke in the past. He is conversational, but appears mildly disoriented. He notes the year is 1953 repeatedly. He appears to have a L. hemiparesis, and poor participation. There are no additional questions at this time. Imaging review. Unremarkable for acute changes. CTH head, history, and examination suggestive of wernicke's encephalopathy. Patient denies having had a Hypercoagulation panel in the past. Patient is an unreliable historian d/t cognitive deficit. Initial consultation 05/11/25 Patient is a 49 year old Male. 49M with a history of stroke who presents to the ED for generalized weakness and ongoing L hemibody symptoms. Patient reports about 5 months ago he had a stroke and has had left sided deficits since that time. He has left sided weakness, sensory deficit, and his whole left side is tingling. He has difficulty with ambulation. He also notes that he just feels generally weak with dizziness for the last 3 months. He states he feels touchy. He is a somewhat poor historian and it is difficult to discern exactly what changed that brought him in today. There does not seem to be a new acute focal deficit in the last 3w but rather a slow decline and decompensation. The patient tells me he was seen for his stroke and given 6 different medications to take but was unable to afford them so he is only taking aspirin 81 mg daily. He does smoke. He also has been drinking. There seems to be some component of confabulation and inconsistencies in his history (initially tells me he has Afib, this is no corroborated on chart, told bedside RN he did not have Afib and only anxiety, has HTN as well) and his timeline does fluctuate; it seems he had stopped drinking but restarted again last night and some this morning. On review of the EMR for better clarity of the patient's history: it appears he was seen by his PCP 02/03 for numbness and weakness on his left side that occurred sometime early January. He was advised to go to the ED at that time but did not. His PCP ordered an MRI Brain, MRA Brain and neck as well as aspirin 81 mg daily. It seems like he did not follow through with the MRI. He has not yet been seen by neurology as his appointment was scheduled too far out. On 03/13 he saw his PCP again, he had not gotten the MRI then. Labs were obtained and LDL was 285 at that time. No other risk stratification work up had been completed by patient at that point. Past Medical History: ??? Stroke Medications: No Anticoagulant use Antiplatelet use: Yes asa Reviewed EMR for current medications Allergies: Reviewed Social History: Smoking: No Alcohol Use: No Family History: There is no family history of premature cerebrovascular disease pertinent to this consultation ROS : 14 Points Review of Systems was performed and was negative except mentioned in HPI. Past Surgical History: There Is No Surgical History Contributory To Today???s Visit Examination: BP(137/97), Pulse(82), 1A: Level of Consciousness - Alert; keenly responsive + 0 1B: Ask Month and Age - 1 Question Right + 1 1C: Blink Eyes AND Squeeze Hands - Performs Both Tasks + 0 2: Test Horizontal Extraocular Movements - Normal + 0 3: Test Visual Pink - No Visual Loss + 0 4: Test Facial Palsy (Use Grimace if Obtunded) - Minor paralysis (flat nasolabial fold, smile asymmetry) + 1 5A: Test Left Arm Motor Drift - Drift, hits bed + 2 5B: Test Right Arm Motor Drift - Drift, but doesn't hit bed + 1 6A: Test Left Leg Motor Drift - Drift, hits bed + 2 6B: Test Right Leg Motor Drift - Drift, but doesn't hit bed + 1 7: Test Limb Ataxia (FNF/Heel-Leonard) - No Ataxia + 0 8: Test Sensation - Normal; No sensory loss + 0 9: Test Language/Aphasia - Mild-Moderate Aphasia: Some Obvious Changes, Without Significant Limitation + 1 10: Test Dysarthria - Normal + 0 11: Test Extinction/Inattention - No abnormality + 0 NIHSS Score: 9 NIHSS Free Text : STates repeated 1955 for year. Got birthyear correct. Able to complete [facility] [employer] sequencing. This consult was conducted in real time using interactive audio and video technology. Patient was informed of the technology being used for this visit and agreed to proceed. Patient located in hospital and provider located at home/office setting. Patient is being evaluated for possible acute neurologic impairment and high probability of imminent or life - threatening deterioration.I spent total of 35 minutes providing care to this patient, including time for face to face visit via telemedicine, review of medical records, imaging studies and discussion of findings with providers, the patient and / or family. Dr Stanford Quevedo [facility] For Inpatient follow-up with [employer] physician please call [facility] at . As we are not an outpatient service for any post hospital discharge needs please contact the hospital for assistance. If you have any questions for the [employer] physicians or need to reconsult for clinical or diagnostic changes please contact us via [facility] at . Impression: [] Recommendations: [] Reason for Consult: [] Chief Complaint: [] History of Present Illness: DIONNA CONCEPCION is a 49 M being evaluated for RT MCA INFARCT/LT SIDED WEAKNESS. [] Review of Systems: As noted in the HPI. Diagnostic Testing: [] Exam: Mental Status: Awake, alert, oriented Naming: Intact Repetition: Intact Speech: fluent Cranial Nerves: Pupils: Equal round and reactive to light Extraocular movements: Intact in all cardinal gaze Ptosis: Absent Visual pink: Intact to finger counting Facial sensation: Intact to pin and light touch Facial movements: Intact and symmetric Motor Exam: No drift Tremor/Abnormal Movements: Resting tremor: Absent Intention tremor: Absent Postural tremor: Absent Sensory Exam: Light touch: Intact Pinprick: Intact Coordination: Finger to nose: Intact Heel to leonard: Intact Medical Decision Making: * Extensive number of diagnosis or management options are considered above. * Extensive amount of complex data reviewed. * High risk of complications and/or morbidity or mortality are associated with differential diagnostic considerations above. * There may be uncertain outcome and increased probability of prolonged functional impairment or high probability of severe prolonged functional impairment associated with some of these differential diagnosis. Medical Data Reviewed: * Data reviewed include clinical labs, radiology, medical tests; * Tests results discussed with performing or interpreting physician; * Obtaining/reviewing old medical records; * Obtaining case history from another source; * Independent review of image, tracing, or specimen. Allergies/Adverse Reactions No Known Drug Allergies Allergy (Verified 05/11/25 15:01) Home Medications amlodipine 10 mg tablet 10 mg PO DAILY 05/11/25 [Confirmed 05/11/25] aspirin 81 mg chewable tablet 1 tab PO DAILY 05/11/25 [Confirmed 05/11/25] Medical History (Updated 05/18/25 @ 17:10 by Dafne Bond ([facility]), POWER BALLAST MACHINE OPERATOR) History of right MCA stroke Fatigue Chronic pancreatitis Alcoholism Metabolic encephalopathy Acute respiratory failure Smoker Hypertriglyceridemia Hypertension CVA (cerebral vascular accident) left sided defecits Surgical History (Updated 05/15/25 @ 08:55 by Dipak Dahl MD) S/P rotator cuff repair Caffeine Amount: 1-2/Day Current Type of Alcohol: Beer Current Alcohol Amount: Socially/Occasionally Smoking Status: Heavy tobacco smoker Type of Tobacco: Cigarettes Smoking Amount: 1 pack per day Family History - Deferred Data: Last Vital Signs Temp Pulse Resp BP Pulse Ox O2 Flow RateFiO2 98.1 F 82 20 137/97 H 97 2 40 05/19/25 14:05/19/25 14:05/19/25 14:05/19/25 14:05/19/25 14:05/19/25 07:05/16/25 16: 27 27 27 27 27 35 30 Hematology WBC 11.6 H RBC 3.31 L Hgb 11.2 L Hct 32.2 L MCV 97.2 H MCH 33.8 H MCHC 34.8 RDW 19.4 H Plt Count 83 L Chemistry Sodium 139 Potassium 3.2 L Chloride 105 Carbon Dioxide 22 Anion Gap 12 BUN 11 Creatinine 0.61 GFR Calculation > 60 Random Glucose 90 Calcium 9.00 Magnesium 1.7 L Patient was informed the Neurology Consult would happen via telehealth (remote video) and consented to receiving care in this manner. cc: Lorelei Quevedo DO; Tay Camara MD; Stuart Madrid MD Dictated by: Lorelei Quevedo DO on 05/19/25 1600 Entered by: Lorelei Quevedo DO on 05/19/25 1600 Report Signed by: Lorelei Quevedo DO on 05/19/25 1601 <<Signature on File>> <Electronically signed by Lorelei Quevedo DO> Report Signed by: on PROGRESS NOTE - HOSPITALIST Observed: 11:37 AM Status: F Source: [facility] Records Patient: DIONNA CONCEPCION [address] : 1975 [place], [place] [address] Location: [phone] Unit #: [id number] Progress Note - Hospitalist Dafne Bond ([facility]) POWER BALLAST MACHINE OPERATOR Service Dt/Tm: 05/19/25 1059 Assessment/Plan Assessment/Plan (1) Wernickes encephalopathy: Status: Acute Plan: As identified on brain MRI and CT imaging Continue IV thiamine, IV folic acid, and MV Neurology consulted on 05/17/25, no note to reflect visit Teleneurology reconsulted today, appreciate recommendations (2) Fatigue: Status: Acute Qualifiers: Fatigue type: unspecified Qualified Code(s): R53.83 - Other fatigue Plan: Reports fatigue today Electrolyte replacement per protocol Continue to monitor (3) Left-sided weakness: Status: Chronic Plan: Chief complaint of generalized weakness CT head/neck Hypodensity in the posterior right frontal lobe which may represent a subacute right MCA infarct No hemorrhage is identified No acute abnormality in the cervical spine CTA head/neck Negative MRI brain No acute intracranial abnormality Old cortical gyral ischemic infarcts with focal atrophy involving the right postcentral gyrus and right lateral occipitotemporal gyrus and smaller old cortical gyral ischemic infarct in the right middle frontal gyrus Repeat CT head Review of the prior MR shows findings highly suspicious for Wernicke encephalopathy, which will typically respond to prompt administration of IV thiamine Teleneurology consulted Continue ASA, statin, risk factor modification PT/OT evaluation and treatment Neurology recommends 30 days MCOT at DC given old cortical strokes on brain MRI, recommend (at least) 30 days of outpatient cardiac event monitoring (Or Implantable Loop Recorder) looking for occult paroxysmal Atrial Fibrillation (4) History of right MCA stroke: Status: Chronic Plan: CVA reported in January 2025 Old infarct in MCA territory per imaging (5) Gaze palsy: Status: Chronic Plan: 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 in January (6) Dehydration: Status: Resolved Plan: Received IV hydration (7) Fever: Status: Resolved Qualifiers: Fever type: unspecified Qualified Code(s): R50.9 - Fever, unspecified (8) Leukocytosis: Status: Resolved Qualifiers: Leukocytosis type: bandemia Qualified Code(s): D72.825 - Bandemia (9) Choledocholithiasis: Status: Resolved (10) CVA (cerebral vascular accident): Status: Chronic Qualifiers: CVA mechanism: unspecified Qualified Code(s): I63.9 - Cerebral infarction, unspecified Plan: Old infarct in MCA territory per imaging (11) Sinus tachycardia: Status: Resolved Plan: Treated and resolved (12) Septic shock: Status: Resolved Plan: Treated for septic shock with resolution Required vasopressor for hypotension (13) Alcoholism: Status: Chronic Plan: CIWA scale (14) On mechanically assisted ventilation: Status: Resolved Plan: Required intubation due to alteration in mental status Extubated 05/16/25 (15) Metabolic acidosis: Status: Resolved Plan: Treated and resolved (16) Alcohol withdrawal: Status: Ruled-out Qualifiers: Complication of substance-induced condition: with delirium Qualified Code(s): F10.931 - Alcohol use, unspecified with withdrawal delirium Plan: Out of the window MVI, thiamine, folic acid (17) GI bleed: Status: Ruled-out Qualifiers: GI bleed type/associated pathology: unspecified gastrointestinal hemorrhage type Qualified Code(s): K92.2 - Gastrointestinal hemorrhage, unspecified Plan: No evidence of GI bleed during ERCP 05/15/2025 PPI daily VTE prophylaxis (18) Sepsis: Status: Resolved Qualifiers: Sepsis acute organ dysfunction status: unspecified Sepsis type: sepsis due to unspecified organism Qualified Code(s): A41.9 - Sepsis, unspecified organism Plan: Likely secondary to acute choledocholithiasis WBC 13.4 -> 42.9 -> 25.3 -> 7.7 Procalcitonin 0.183 on admission Fever 100.5 Tachycardic 140 Lactic acid elevated 2.5 Respiratory panel negative Sepsis protocol initiated Received 2L NS + maintenance NS 100ml/hr Concern for for aspiration CXR Nonacute portable x-ray examination of the chest CT chest/abd/pelv Proximal duodenal wall thickening, periampullary diverticulum and adjacent stranding suggesting possibility of duodenitis/peptic ulcer disease, groove pancreatitis or periampullary diverticulitis No pulmonary airspace disease/pneumonia or pleural effusion Urinalysis negative Freeman catheter placed due to urinary retention Blood cultures negative Received IV Ceftriaxone ID consulted GI consulted Status post ERCP 05/15/2025 with removal of a gallstone *Septic shock treated and resolved Plan 57-year-old male with medical history of CVA, frequent falls, and alcohol abuse who was admitted on 05/11/25 for chief complaint of excessive fatigue and generalized weakness x2 months. Per patient report, was diagnosed with CVA 2 months ago and has left- sided weakness, paresthesias, and facial drooping since event. Workup revealed leukocytosis, hypokalemia, negative troponin level, negative procalcitonin. EKG shows sinus rhythm. 05/14: Patient transferred to ICU with increased encephalopathy, leukocytosis, tachycardic, tachypnea. ID on consult. Abd tender and guarded to palpation. Surgery consulted due to concerns for bowel perforation or other pathology. Pt intubated for airway protection. IV atb changed back to Zosyn. Treated for septic shock. 05/15: Decreasing pressor needs in the last 24 hours, no longer on vasopressin, continue hydrocortisone. Continue thiamine for Wernicke's encephalopathy. S/p ERCP [Ampulla inside the diverticulum, bile duct stone status post sphincterotomy stones extraction with the balloon]. 05/16: Improving. Off all vasopressors. Versed turned off. Remains encephalopathic, awake and moving all extremities but nothing to command or purposeful. Extubated. 05/17: No longer requiring vasopressors, hemodynamically stable. Intermittently encephalopathic. Restart VTE PPx, transition PPI to once daily, transfer out of ICU. 05/18: Seen on floor. Oriented x3 - name, place, month. Situationally confused. Hostile and agitated. Received IV Thiamine. 05/19: Nursing updated daughterMaria Fernanda regarding plan of care and current treatment. Oriented to name, place, month. Sitting in recliner. Vp Foundation consult for nutritional assessment and oral supplementation. Continue MV, folic acid, and thiamine. Teleneurology was reconsulted on 05/17/25 and there is no note indicating visit. Teleneurology reconsulted today re: Wernicke encephalopathy. Current Code Status AND Diet: 05/11/25 18:30 Code Status Routine Resuscitation Status: Full Code Code Status Order Placed: Code Status Ordered 05/11/25 at 1830 05/17/25 10:31 AHA Diet Diet Modifications: IDDSI- Soft AND Bite-Sized Texture: Mildly Thick Liquids Fluid Restrictions?: No Subjective Subjective: Primary Care Provider: Tay Camara MD Chief Complaint: RT MCA INFARCT/LT SIDED WEAKNESS Patient seen and examined this AM while sitting up in recliner. Patient is alert, oriented to name, place, and month. Disoriented to year. States he is in the hospital for a stroke. Agrees that he had a stroke in January of this year. Reports some anxiety at this time. Discussed plan of care, patient is agreeable. Patient Status AND Estimated DC Date Patient Registration Status: Inpatient Objective Constitutional: Last Vital Signs Temp Pulse Resp BP Pulse Ox O2 Flow RateFiO2 98.4 F 76 16 146/95 H 97 2 40 05/19/25 07:05/19/25 07:05/19/25 07:05/19/25 07:05/19/25 07:05/19/25 07:05/16/25 16: 57 57 57 57 57 35 30 Intake and Output Intake Total 728 915.14 Output Total 1545 4325 Balance -817 -8913.86 Admitting (IV Pump) Weight 61.4 kg Actual Weight (Kg) 71 kg General Appearance: Alert, Resting Comfortably and Cooperative Eyes: PERRLA ENT: Deferred Skin: Color Normal and Warm, Dry; No Diaphoresis Cardiovascular: Regular Rate and Rhythm and S1 S2 Lungs: Clear to Auscultate Bila and Good Air Entry; No Respiratory Distress Abdomen: Soft and Bowel Sounds; No Tender to palpation Extremities: Activity as expected, Warm and Dry and Pedal Pulses; No Edema Neurologic: Moves all extremities and A AND O x3 (name, place, month - disoriented to year ) Psychological: Mood AND Affect Normal Data Labs: Potassium 3.2 L The last 24 hours of labs have been reviewed. Imaging: I have reviewed the diagnostic images in the EMR. Microbiology: Microbiology 05/14/25 05:30 Sputum - Luki Gram Stain - Final 05/14/25 05:30 Sputum - Luki Sputum Culture - Final Escherichia coli Serratia marcescens 05/13/25 06:54 Blood,Venous - Final Test not indicated 05/13/25 06:54 Blood,Venous Blood Culture - Final No growth after 5 days. 05/13/25 06:44 Blood,Venous - Final Test not indicated 05/13/25 06:44 Blood,Venous Blood Culture - Final No growth after 5 days. Medications and Comanagement: Medications reviewed separately. Pressure Injury/Pressure Area of Concern Sacrum: Site identified as: Area of Concern Provider Reviewed: Didn't assess today ??? findings per nursing; continue current treatment Entered by: Dafne Bond ([facility])EMMA on 05/19/25 1821 Report Signed by: Dafne FonsecaSILVER LAKE MEDICAL CENTERYasmany Bond CNP on 05/19/25 1132 <<Signature on File>> <Electronically signed by Dafne Fon[facility]aS[facility]) POWER BALLAST MACHINE OPERATOR> Report Signed by: on CBC WITHOUT DIFFERENTIAL Collected: 8:07 AM Status: F Source: [facility] TYPE CODE TESTS RESULT OUT OF RANGE REFERENCE UNITS LAB L100.0100 WBC 11.6 High 4.4-10.5 th/cmm LAB L100.0300 RBC 3.31 Low 4.50-6.00 mil/cmm LAB L100.0400 Hemoglobin 11.2 Low 13.5-16.5 gm/dL LAB L100.0500 Hematocrit 32.2 Low 40.0-49.0 % LAB L100.0600 MCV 97.2 High 80-97 CU DEIDRA LAB L100.0700 MCH 33.8 High 27.5-33.0 PG LAB L100.0800 MCHC 34.8 Normal 33.0-36.0 gm/dL LAB L100.0900 RDW 19.4 High 12.0-16.0 % LAB L100.1000 Platelet Count 83 Low 150-400 th/cmm Performed By: #### L100.0050 #### Main Laboratory ([facility]) [address] [place] [address] Regan Sahni MD POTASSIUM Collected: 8:07 AM Status: F Source: [facility] Order Comment: [email or web address] [id number] TYPE CODE TESTS RESULT OUT OF RANGE REFERENCE UNITS LAB L400.1500 Potassium 3.2 Low 3.6-5.0 mEq/L Performed By: #### L400.5100 , L400.1500, L400.0152 #### Main Laboratory ([facility]) [address] [place] [address] Regan Sahni MD BASIC METABOLIC,NON-FASTING Collected: 05/19/2025 8:07 AM Status: F Source: [facility] Order Comment: [email or web address] [id number] TYPE CODE TESTS RESULT OUT OF RANGE REFERENCE UNITS LAB L400.1400 Sodium 139 Normal 135-145 mEq/L LAB L400.1500 Potassium 3.2 Low 3.6-5.0 mEq/L LAB L400.1600 Chloride 105 Normal 101-111 mEq/L LAB L400.1700 Carbon Dioxide 22 Normal 21-32 mEq/L LAB L400.1800 Anion Gap 12 Normal 4-12 LAB L400.1820 Glucose 90 Normal 70-110 mg/dL Result Comment: *This refere nce range applies to fasting specimens only. LAB L400.1835 BUN 11 Normal 7-20 mg/dL LAB L400.1840 Creatinine 0.61 Normal 0.60-1.30 mg/dL LAB L400.1845 GFR Calculation > 60 Normal Result Comment: Chronic Kidn ey Disease stages by NKDF Stage eGFR I >90 II 60-89 III 30-59 IV 15-29 V <15 or dialysis Note: Information regarding the eGFR equation used can be found at https://www.kidney.org/mpxh-jybim-[email or web address]. AGE(years) AVERAGE GFR 50-59 93 ml/min/1.73 square meters Note:This result is normalized to 1.73 square meter body surface area. Height and weight are not factored. LAB L400.2100 Calcium 9.00 Normal 8.8-10.5 mg/dL Performed By: #### L400.5100 , L400.1500, L400.0152 #### Main Laboratory ([facility]) [address] [place] [address] Regan Sahni MD MAGNESIUM Collected: 8:07 AM Status: F Source: [facility] Order Comment: [email or web address] [id number] TYPE CODE TESTS RESULT OUT OF RANGE REFERENCE UNITS LAB L400.5100 Magnesium 1.7 Low 1.8-2.5 mg/dL Performed By: #### L400.5100 , L400.1500, L400.0152 #### Main Laboratory ([facility]) [address] [place] [address] Regan Sahni MD EKG MONITORING Observed: 05/18/2025 7:25 PM Status: F Source: [facility] Patient: DIONNA CONCEPCION [address] : 1975 [place], [place] [address] Location: [phone] Unit #: [id number] Ordering Phys: Nathan Ramos (ICU) POWER BALLAST MACHINE OPERATOR EKG Monitoring Fransisco Linares MD Exam Date/Time May 16 2025 14:56:53 Test Reason : Blood Pressure : / mmHG Vent. Rate : 049 BPM Atrial Rate : 049 BPM P-R Int : 132 ms QRS Dur : 090 ms QT Int : 538 ms P-R-T Axes : 059 074 069 degrees QTc Int : 485 ms Sinus bradycardia Normal ECG Confirmed by Fransisco Linares ([id number]) on 05/18/2025 7:24:40 PM Referred By: Nathan Ramos Confirmed By:Fransisco Linares Dictated by: Fransisco Linares MD on 05/16/251455 Transcribed by: [employer] Myah MCGOVERN on 05/18/251923 Report Signed by: Fransisco Linares MD on 05/18/251924 PROGRESS NOTE - HOSPITALIST Observed: 5:30 PM Status: F Source: [facility] Records Patient: DIONNA CONCEPCION [address]. : 1975 [place], [place] [address] Location: [address] [place] [address] Unit #: [id number] Progress Note - Hospitalist Dafne Bond ([facility]) POWER BALLAST MACHINE OPERATOR Service Dt/Tm: 05/18/25 0755 Assessment/Plan Assessment/Plan (1) Wernickes encephalopathy: Status: Acute Plan: As identified on brain MRI and CT imaging IV Thiamine 500mg x9 doses (2) Fatigue: Status: Acute Qualifiers: Fatigue type: unspecified Qualified Code(s): R53.83 - Other fatigue Plan: Electrolyte replacement per protocol Continue to monitor (3) Left-sided weakness: Status: Chronic Plan: Chief complaint of generalized weakness CT head/neck Hypodensity in the posterior right frontal lobe which may represent a subacute right MCA infarct No hemorrhage is identified No acute abnormality in the cervical spine CTA head/neck Negative MRI brain No acute intracranial abnormality Old cortical gyral ischemic infarcts with focal atrophy involving the right postcentral gyrus and right lateral occipitotemporal gyrus and smaller old cortical gyral ischemic infarct in the right middle frontal gyrus Repeat CT head Review of the prior MR shows findings highly suspicious for Wernicke encephalopathy, which will typically respond to prompt administration of IV thiamine Teleneurology consulted Continue ASA, statin, risk factor modification PT/OT evaluation and treatment Neurology recommends 30 days MCOT at DC (4) History of right MCA stroke: Status: Chronic (5) Gaze palsy: Status: Chronic Plan: Patient reports he is having left-sided gaze palsy secondary to previous stroke in January (6) Dehydration: Status: Resolved Plan: Received IV hydration (7) Fever: Status: Resolved Qualifiers: Fever type: unspecified Qualified Code(s): R50.9 - Fever, unspecified (8) Leukocytosis: Status: Resolved Qualifiers: Leukocytosis type: bandemia Qualified Code(s): D72.825 - Bandemia (9) Choledocholithiasis: Status: Resolved (10) CVA (cerebral vascular accident): Status: Chronic Qualifiers: CVA mechanism: unspecified Qualified Code(s): I63.9 - Cerebral infarction, unspecified Plan: Old infarct in MCA territory per imaging (11) Sinus tachycardia: Status: Resolved Plan: Treated and resolved (12) Septic shock: Status: Resolved Plan: Treated for septic shock with resolution Required vasopressor for hypotension (13) Alcoholism: Status: Chronic Plan: CIWA scale (14) On mechanically assisted ventilation: Status: Resolved Plan: Required intubation due to alteration in mental status Extubated 05/16/25 (15) Metabolic acidosis: Status: Resolved Plan: Treated and resolved (16) Alcohol withdrawal: Status: Ruled-out Qualifiers: Complication of substance-induced condition: with delirium Qualified Code(s): F10.931 - Alcohol use, unspecified with withdrawal delirium Plan: Out of the window MVI, thiamine, folic acid (17) GI bleed: Status: Ruled-out Qualifiers: GI bleed type/associated pathology: unspecified gastrointestinal hemorrhage type Qualified Code(s): K92.2 - Gastrointestinal hemorrhage, unspecified Plan: No evidence of GI bleed during ERCP 05/15/2025 PPI daily VTE prophylaxis (18) Sepsis: Status: Resolved Qualifiers: Sepsis acute organ dysfunction status: unspecified Sepsis type: sepsis due to unspecified organism Qualified Code(s): A41.9 - Sepsis, unspecified organism Plan: Likely secondary to acute choledocholithiasis WBC 13.4 -> 42.9 -> 25.3 -> 7.7 Procalcitonin 0.183 on admission Fever 100.5 Tachycardic 140 Lactic acid elevated 2.5 Respiratory panel negative Sepsis protocol initiated Received 2L NS + maintenance NS 100ml/hr Concern for for aspiration CXR Nonacute portable x-ray examination of the chest CT chest/abd/pelv Proximal duodenal wall thickening, periampullary diverticulum and adjacent stranding suggesting possibility of duodenitis/peptic ulcer disease, groove pancreatitis or periampullary diverticulitis No pulmonary airspace disease/pneumonia or pleural effusion Urinalysis negative Freeman catheter placed due to urinary retention Blood cultures negative Received IV Ceftriaxone ID consulted GI consulted Status post ERCP 05/15/2025 with removal of a gallstone *Septic shock treated and resolved Plan 57-year-old male with medical history of CVA, frequent falls, and alcohol abuse who was admitted on 05/11/25 for chief complaint of excessive fatigue and generalized weakness x2 months. Per patient report, was diagnosed with CVA 2 months ago and has left- sided weakness, paresthesias, and facial drooping since event. Workup revealed leukocytosis, hypokalemia, negative troponin level, negative procalcitonin. EKG shows sinus rhythm. 05/14/25 Patient transferred to ICU with increased encephalopathy, leukocytosis, tachycardic, tachypnea. ID on consult. Abd tender and guarded to palpation. Surgery consulted due to concerns for bowel perforation or other pathology. Pt intubated for airway protection. IV atb changed back to Zosyn. Treated for septic shock. 05/15: Decreasing pressor needs in the last 24 hours, no longer on vasopressin, continue hydrocortisone. Continue thiamine for Wernicke's encephalopathy. S/p ERCP [Ampulla inside the diverticulum, bile duct stone status post sphincterotomy stones extraction with the balloon]. 05/16: Improving. Off all vasopressors. Versed turned off. Remains encephalopathic, awake and moving all extremities but nothing to command or purposeful. Extubated. 05/17: No longer requiring vasopressors, hemodynamically stable. Intermittently encephalopathic. Restart VTE PPx, transition PPI to once daily, transfer out of ICU. 05/18: Seen on floor. Oriented x3 - name, place, month. Situationally confused. Hostile and agitated. Received IV Thiamine. Current Code Status AND Diet: 05/11/25 18:30 Code Status Routine Resuscitation Status: Full Code Code Status Order Placed: Code Status Ordered 05/11/25 at 1830 05/17/25 10:31 AHA Diet Diet Modifications: IDDSI- Soft AND Bite-Sized Texture: Mildly Thick Liquids Fluid Restrictions?: No Subjective Subjective: Primary Care Provider: Tay Camara MD Chief Complaint: RT MCA INFARCT/LT SIDED WEAKNESS Patient seen and examined this AM. Reports dyspnea. Patient is agitated and hostile. Denies other subjective complaints at this time. Patient Status AND Estimated DC Date Patient Registration Status: Inpatient Objective Constitutional: Last Vital Signs Temp Pulse Resp BP Pulse Ox O2 Flow RateFiO2 98.1 F 62 15 137/86 92 15 40 05/18/25 04:05/18/25 04:05/18/25 04:05/18/25 04:05/18/25 04:05/18/25 04:05/16/25 16: 10 10 10 10 10 08 30 Intake and Output Intake Total 2705 728 Output Total 935 1545 Balance 1770 -817 Admitting (IV Pump) Weight 61.4 kg Actual Weight (Kg) 71 kg General Appearance: Alert and Cooperative; No Acute Distress Eyes: PERRLA ENT: Deferred Skin: Color Normal and Warm, Dry; No Diaphoresis Cardiovascular: Regular Rate and Rhythm and S1 S2 Lungs: Clear to Auscultate Bila and Good Air Entry; No Respiratory Distress Abdomen: Soft and Bowel Sounds; No Tender to palpation Extremities: Activity as expected, Warm and Dry and Pedal Pulses; No Edema Neurologic: A AND O x3 (name, place, month); No Normal Movement AND Sensation Bilat Lower Extremities (Left side weakness) Psychological: Agitated, Confused (situationally confused, does not know year) and Other (hostile) Data Labs: Lactic Acid 1.5 Potassium 3.5 L The last 24 hours of labs have been reviewed. Imaging: I have reviewed the diagnostic images in the EMR. Microbiology: Microbiology 05/14/25 05:30 Sputum - Luki Gram Stain - Final 05/14/25 05:30 Sputum - Luki Sputum Culture - Preliminary Escherichia coli Serratia marcescens 05/13/25 06:54 Blood,Venous Blood Culture - Preliminary No growth after 4 days, cultures held 5 days. 05/13/25 06:44 Blood,Venous Blood Culture - Preliminary No growth after 4 days, cultures held 5 days. Medications and Comanagement: Medications reviewed separately. Pressure Injury/Pressure Area of Concern Sacrum: Site identified as: Area of Concern Provider Reviewed: Didn't assess today ??? findings per nursing; continue current treatment Entered by: Dafne Bond ([facility]), POWER BALLAST MACHINE OPERATOR on 05/18/25 2796 Report Signed by: [facility]) Ronda CARTER on 05/18/25 3590 <<Signature on File>> <Electronically signed by Dafne Bond ([facility]) EMMA> Report Signed by: on POTASSIUM Collected: 4:44 AM Status: F Source: [facility] TYPE CODE TESTS RESULT OUT OF RANGE REFERENCE UNITS LAB L400.1500 Potassium 3.5 Low 3.6-5.0 mEq/L Performed By: #### L400.0152 , L400.1500 #### Main Laboratory ([facility]) [address] [place] [address] Regan Sahni MD BASIC METABOLIC,NON-FASTING Collected: 05/18/2025 4:44 AM Status: F Source: [facility] TYPE CODE TESTS RESULT OUT OF RANGE REFERENCE UNITS LAB L400.1400 Sodium 144 Normal 135-145 mEq/L LAB L400.1500 Potassium 3.5 Low 3.6-5.0 mEq/L LAB L400.1600 Chloride 114 High 101-111 mEq/L LAB L400.1700 Carbon Dioxide 20 Low 21-32 mEq/L LAB L400.1800 Anion Gap 10 Normal 4-12 LAB L400.1820 Glucose 90 Normal 70-110 mg/dL Result Comment: *This refere nce range applies to fasting specimens only. LAB L400.1835 BUN 15 Normal 7-20 mg/dL LAB L400.1840 Creatinine 0.72 Normal 0.60-1.30 mg/dL LAB L400.1845 GFR Calculation > 60 Normal Result Comment: Chronic Kidn ey Disease stages by NKDF Stage eGFR I >90 II 60-89 III 30-59 IV 15-29 V <15 or dialysis Note: Information regarding the eGFR equation used can be found at https://www.kidney.org/gizr-ryzaz-rhinouze. AGE(years) AVERAGE GFR 50-59 93 ml/min/1.73 square meters Note:This result is normalized to 1.73 square meter body surface area. Height and weight are not factored. LAB L400.2100 Calcium 8.40 Low 8.8-10.5 mg/dL Performed By: #### L400.0152 , L400.1500 #### Main Laboratory ([facility]) [address] [place] [address] Regan Sahni MD LACTIC ACID Collected: 4:31 PM Status: F Source: [facility] TYPE CODE TESTS RESULT OUT OF RANGE REFERENCE UNITS LAB L401.4160 Lactic Acid 1.5 Normal 0.5-2.0 mmol/L Performed By: #### L401.4160 #### Main Laboratory ([facility]) [address] [place] [address] Regan Sahni MD PROLACTIN Collected: 5 4:31 PM Status: F Source: [facility] TYPE CODE TESTS RESULT OUT OF RANGE REFERENCE UNITS LAB L404.7900 Prolactin 9.02 Normal 2.64-13.13 ng/mL Performed By: #### L404.7900 #### Main Laboratory ([facility]) [address] [place] [address] Regan Sahni MD PROGRESS NOTE CRITICAL CARE Observed: 1:42 PM Status: F Source: [facility] Medical Records Patient: DIONNA CONCEPCION [address] : 1975 [place], [place] [address] Location: ICU [phone] Unit #: [id number] Progress Note Critical Care Nathan Ramos (ICU) POWER BALLAST MACHINE OPERATOR Service Dt/Tm: 05/17/25 0917 <Statement entered by Jack Miller MD - 05/17/25 13:41> Patient is seen and examined at the bedside. I agree with Marck Ramos nurse rejier. Patient was assisted extubated yesterday. He is on oxygen by low- flow nasal cannula's. No significant changes in neurostatus. He remains confused, not agitated. Patient has underlying Warnicke's encephalopathy. He is on high-dose thiamine. Hemodynamically status has significantly improved. He has been off vasopressors for more than 24 hours. Afebrile. White cell count within normal limits. Platelet count is 88,000 from 91,000. This is most likely secondary to severe sepsis. Will trend platelet count. On Lovenox for DVT prophylaxis. HANDH remained stable. Respiratory culture growing E. coli/Serratia marcensens. On Zosyn IV. ID following. Plan of care and patient's current medical condition discussed with patient's family. All questions answered. Patient is stable to be downgraded from ICU Assessment AND Plan (1) Sepsis: Qualifiers: Sepsis type: sepsis due to unspecified organism Sepsis acute organ dysfunction status: unspecified Qualified Code(s): A41.9 - Sepsis, unspecified organism Status: Acute Plan: Most likely secondary to acute choledocholithiasis, GI consulted Infectious disease consulted, appreciate recommendations. Management of antibiotics per infectious disease. WBC downtrending Status post ERCP 05/15/2025 with removal of a gallstone Septic shock treated and resolved (2) Wernickes encephalopathy: Status: Acute Plan: As identified on brain MRI and CT imaging. Thiamine 500 x 9 doses (3) On mechanically assisted ventilation: Status: Resolved Plan: Extubated 05/16/2025. (4) Metabolic acidosis: Status: Resolved Plan: Treated and resolved (5) GI bleed: Qualifiers: GI bleed type/associated pathology: unspecified gastrointestinal hemorrhage type Qualified Code(s): K92.2 - Gastrointestinal hemorrhage, unspecified Status: Acute Plan: No evidence of GI bleed during ERCP 05/15/2025. Okay to switch to PPI daily and restart VTE prophylaxis (6) Alcohol withdrawal: Qualifiers: Complication of substance-induced condition: with delirium Qualified Code(s): F10.931 - Alcohol use, unspecified with withdrawal delirium Status: Suspected Plan: Out of the window MVI, thiamine, folic acid (7) Alcoholism: Status: Chronic Plan: CIWA scale (8) Sinus tachycardia: Status: Resolved Plan: Treated and resolved Plan DAILY ICU EVENTS: 05/14-transfer to ICU after increased encephalopathy, leukocytosis, tachycardic, tachypnea. ID on consult. Abd tender and guarded to palpation. Pt obtunded after [address] abd/pelvis ordered. Surgery consulted due to concerns for bowel perforation or other pathology. Pt intubated for airway protection. IV atb changed back to Zosyn. 05/15: Decreasing pressor needs in the last 24 hours, no longer on vasopressin, continue hydrocortisone, plan for ERCP later today. Continue thiamine for Warnicke's encephalopathy. Okay with SAT, hold off on SBT until no further procedures are planned. 05/16: Patient is doing much better today, off all vasopressors. Versed has been turned off, patient remains encephalopathic, awake and moving all extremities but nothing to command or purposeful. 05/17: Extubated yesterday, no longer requiring vasopressors, hemodynamically stable, still intermittently encephalopathic. Restart VTE PPx, transition PPI to once daily, transfer out of ICU. Critical Care Checklist Analgesia: [Fentanyl as needed Sedation: [None] Vasoactive Infusions: N/A De-escalation of Antibiotics: [Unasyn] VTE Prophylaxis: [ SCDs, Lovenox PUD prophylaxis: PPI daily Bowel prophylaxis: Last BM [] Nutrition: [Full liquid diet advance as tolerated] IV Fluids: [N/A] Glycemic Control: [N/A] AM Labs/Imaging: [Ordered ] Daily Sedation Holiday: [Yes] SBT Readiness: [Delay until further procedures are done] Head of Bed: [ > 30 degrees] PT/OT: [ N/A ] Case Man/Social Work: [N/A] Spiritual Care/Palliative/Ethics: [N/A] Family Update: At bedside Critical Care total time in minutes: 0 Code Status 05/11/25 18:30 Code Status Routine Resuscitation Status: Full Code Code Status Order Placed: Code Status Ordered 05/11/25 at 1830 Discussed Patient's Care With: Nurse, Case Management, Physician and Therapist Subjective Subjective: Patient seen and examined at bedside this morning. He is much more alert today, answering questions more appropriately, still intermittently confused. Current Evaluation: Patient showing favorable progress Review of Systems Constitutional: No Symptoms Reported Cardiovascular: No Symptoms Reported Respiratory: No Symptoms Reported Musculoskeletal: No Symptoms Reported Neurological: No Symptoms Reported All other systems: Negative Objective Vital Signs - 24 hr 05/17/25 08:38 97.3 F L 05/17/25 04:38 97.2 F L 05/17/25 04:00 3 05/16/25 23:57 97.7 F 05/16/25 20:20 97.8 F 05/16/25 18:31 62 21 H 102/69 95 05/16/25 18:00 67 25 H 95 05/16/25 17:33 97.3 F L 05/16/25 17:31 57 L 23 H 110/77 96 05/16/25 17:01 68 24 H 115/76 99 2 05/16/25 17:00 64 21 H 99 05/16/25 16:50 61 23 H 98 2 05/16/25 16:40 61 21 H 98 05/16/25 16:35 97 2 05/16/25 16:31 70 19 113/91 H 100 2 05/16/25 16:30 62 21 H 99 40 05/16/25 16:20 58 L 18 100 05/16/25 16:10 57 L 14 100 05/16/25 16:08 54 L 10 L 114/79 100 05/16/25 16:00 64 16 114/79 99 40 05/16/25 15:51 59 L 17 05/16/25 15:32 67 13 100 05/16/25 15:31 63 17 100 40 05/16/25 15:25 40 05/16/25 15:02 55 L 12 100 05/16/25 15:01 56 L 11 L 111/91 H 100 40 05/16/25 15:00 61 19 100 40 05/16/25 14:31 46 L 11 L 110/77 99 40 05/16/25 14:01 50 L 10 L 111/73 99 30 05/16/25 14:00 50 L 10 L 99 05/16/25 13:58 48 L 10 L 99 30 05/16/25 13:30 10 L 108/77 99 30 05/16/25 13:23 56 L 17 99 30 05/16/25 13:12 30 05/16/25 13:02 52 L 14 98 05/16/25 13:01 53 L 14 102/79 98 30 05/16/25 13:00 61 15 05/16/25 12:55 65 14 05/16/25 12:50 53 L 16 05/16/25 12:45 50 L 12 05/16/25 12:40 43 L 15 100 05/16/25 12:31 52 L 15 109/76 99 05/16/25 12:30 53 L 19 05/16/25 12:20 52 L 20 05/16/25 12:18 53 L 17 99 05/16/25 12:10 47 L 17 05/16/25 12:08 64 17 05/16/25 12:01 45 L 12 104/67 100 05/16/25 12:00 45 L 14 05/16/25 11:44 97.7 F 05/16/25 11:32 52 L 18 100 05/16/25 11:31 48 L 15 104/76 100 05/16/25 11:01 52 L 13 117/92 H 100 05/16/25 11:00 52 L 12 05/16/25 10:32 50 L 15 05/16/25 10:31 47 L 16 112/73 100 05/16/25 10:03 05/16/25 10:02 70 8 L 100 05/16/25 10:01 54 L 11 L 106/74 100 05/16/25 10:00 51 L 15 100 05/16/25 09:31 52 L 12 106/72 100 Intake AND Output Intake Total 831 766 Output Total 375 400 Balance 456 366 Actual Weight (Kg) 67.3 kg Intake: IV Intake (ml) 831 666 PO Intake (ml) 100 Output: Indwelling Urinary Catheter 375 400 Output (ml) Other: Weight Measurement Method Built in [facility] General Appearance: Positive Alert and Resting Comfortably; Negative Acute Distress HEENT: Positive Normal Inspection Skin: Positive Color Normal and Warm, Dry Neck: Positive Normal Inspection Cardiovascular: Positive Regular Rate and Rhythm and S1 S2 Left Lung: Throughout: Clear Right Lung: Throughout: Clear Lungs: Positive Good Air Entry; Negative Respiratory Distress Abdomen: Positive Soft; Negative Tender to palpation Extremities: Positive Activity as expected and Warm and Dry; Negative Edema Neurologic: Positive Grossly Intact, Normal Movement AND Sensation Bilat Lower Extremities, Moves all extremities and A AND O x2 Psychological: Positive Mood AND Affect Normal and Confused (Intermittently) Glascow Coma Scale Eye Opening: Spontaneous Best Motor Response: Obeys Commands Best Verbal Response: Disoriented and Converses Score: 14 Current Clinical Active Medications Amlodipine Besylate (Amlodipine Besylate 10 Mg Tab) 10 mg PO DAILY [facility] Stop: 08/19/25 09:01 Last Admin: 05/14/25 09:29 Dose: Not Given Aspirin (Aspirin Chw 81 Mg Tab) 81 mg PO DAILY RENAN Stop: 08/19/25 09:01 Last Admin: 05/14/25 09:29 Dose: Not Given Atorvastatin Calcium (Atorvastatin Calcium 40 Mg Tab) 40 mg PO QHS RENAN Stop: 08/18/25 21:01 Last Admin: 05/13/25 21:14 Dose: 40 mg Diphenhydramine HCl (Diphenhydramine Hcl 25 Mg Cap) 25 mg PO QHSPRN PRN PRN Reason: insomnia Stop: 08/19/25 07:46 Docusate Sodium (Docusate Sodium 100 Mg Cap) 100 mg PO BIDPRN PRN PRN Reason: Constipation Stop: 08/19/25 07:46 Electrolyte Protocol (Phosphorus Replacement Protocol) 1 christiane MORSE DIRECTED PRN; Protocol PRN Reason: SEE COMMENTS BELOW Stop: 08/19/25 07:46 Electrolyte Protocol (Calcium Replacement Protocol) 1 christiane MORSE DIRECTED PRN; Protocol PRN Reason: SEE COMMENTS BELOW Stop: 08/19/25 07:46 Electrolyte Protocol (Magnesium Replacement Protocol 1 Ea Ea) 1 christiane MORSE DIRECTED PRN; Protocol PRN Reason: SEE COMMENTS BELOW Stop: 08/19/25 07:46 Electrolyte Protocol (Potassium Replacement Protocol 1 Ea Ea) 1 christiane MORSE DIRECTED PRN; Protocol PRN Reason: SEE COMMENTS BELOW Stop: 08/19/25 07:46 Enoxaparin Sodium (Enoxaparin Sodium 40 Mg/0.4 Ml Syr) 40 mg SC DAILY RENAN Stop: 08/19/25 09:01 Last Admin: 05/14/25 10:20 Dose: Not Given Ethyl Alcohol (Nasal Antiseptic (Nozin Nasal Cad Programmer) 1 Ampule) 1 each BNOS BID RENAN Stop: 08/20/25 09:01 Last Admin: 05/17/25 09:16 Dose: 1 each Fentanyl Citrate (Fentanyl Citrate 100 Mcg/2 Ml Amp) 50 mcg IV PUSH Q4HPRN PRN PRN Reason: Pain, Moderate to Severe Stop: 08/21/25 10:51 Hydrocortisone Sodium Succinate (Hydrocortisone Na Succinate 100 Mg/2 Ml Vial) 50 mg IV PUSH QID@0000,0600,1200,1800 RENAN Stop: 08/21/25 18:01 Last Admin: 05/17/25 06:23 Dose: 50 mg Norepinephrine/Dextrose (Levophed Premix) 4 mg in 250 mls @ 11.513 mls/hr IV DIRECTED [facility]; Protocol Stop: 08/21/25 09:31 Last Titration: 05/16/25 09:56 Dose: Infused Folic Acid 1 mg/ Sodium (Chloride) 50.2 mls @ 50.2 mls/hr IVPB DAILY [facility] Stop: 08/21/25 13:01 Last Admin: 05/17/25 09:16 Dose: 50.2 mls/hr Ampicillin Sodium/Sulbactam (Sodium 3 gm/ Sodium Chloride) 100 mls @ 200 mls/hr IVPB Q6H RENAN Stop: 05/21/25 12:01 Last Infusion: 05/17/25 09:16 Dose: Infused Lactated Ringer's (Lr) 1,000 mls @ 50 mls/hr IV DIRECTED [facility] Stop: 08/22/25 11:16 Last Admin: 05/16/25 18:55 Dose: 50 mls/hr Thiamine HCl 250 mg/ Sodium (Chloride) 52.5 mls @ 105 mls/hr IVPB DAILY [facility] Stop: 05/19/25 09:29 Last Admin: 05/17/25 09:16 Dose: 105 mls/hr Lactobacillus Rhamnosus (Lactobacillus Rhamnosus (Gg) 1 Ea Cap) 1 ea PO DAILY RENAN Stop: 06/13/25 09:01 Last Admin: 05/17/25 09:16 Dose: 1 ea Melatonin (Melatonin 3 Mg Tab) 3 mg PO QHSMRX1 PRN PRN Reason: insomnia Stop: 08/19/25 07:46 Multivitamins/Minerals (Multivitamin W Minerals 1 Each Tab) 1 tab PO DAILY [facility] Stop: 08/21/25 09:01 Last Admin: 05/17/25 09:16 Dose: 1 tab Ondansetron HCl (Ondansetron 4 Mg/2 Ml Vial) 4 mg IV PUSH Q6HPRN PRN PRN Reason: Nausea and Vomiting Stop: 08/19/25 07:46 Last Admin: 05/13/25 23:49 Dose: 4 mg Pantoprazole Sodium (Pantoprazole Na 40 Mg Vial) 40 mg IV PUSH BID [facility] Stop: 08/22/25 12:01 Last Admin: 05/17/25 09:16 Dose: 40 mg Thiamine HCl (Thiamine Hcl 200 Mg/2 Ml Vial) 100 mg IV PUSH DAILY [facility] Stop: 08/27/25 09:01 Diet: 05/17/25 06:58 Full Liquid Texture: Regular Fluid Restrictions?: No Data Hematology WBC 7.7 RBC 2.77 L Hgb 9.3 L Hct 27.1 L MCV 97.7 H MCH 33.7 H MCHC 34.5 RDW 19.5 H Plt Count 88 L Chemistry Sodium Potassium 4.1 Chloride Carbon Dioxide Anion Gap BUN Creatinine GFR Calculation POC Whole Bld Glucose 117 H 128 H Random Glucose Calcium Ionized Calcium Phosphorus Magnesium Total Bilirubin AST ALT Alkaline Phosphatase Total Protein Albumin Albumin/Globulin Ratio Sodium 146 H Potassium 3.7 Chloride 117 H Carbon Dioxide 21 Anion Gap 8 BUN 23 H Creatinine 0.67 GFR Calculation > 60 POC Whole Bld Glucose 124 H 124 H Random Glucose 122 H Calcium 8.10 L Ionized Calcium 1.17 Phosphorus 2.7 Magnesium 2.1 Total Bilirubin 1.7 H AST 78 H ALT 105 H Alkaline Phosphatase 346 H Total Protein 5.0 L Albumin 2.8 L Albumin/Globulin Ratio 1.3 L ABG: Sample Site Vein VBG pH 7.43 H VBG pCO2 at Pat Temp 27 L VBG pO2 at Pat Temp 35 L VBG HCO3 17.7 L VBG O2 Saturation 71 L VBG Base Excess -7 L Respiration Rate 16 Patient Equipment Vent Vent Mode AC FiO2 0.30 Tidal Volume 500 PEEP 5.0 Blood Gas Notified By Yes Microbiology 05/13/25 06:54 Blood,Venous Blood Culture - Preliminary No growth after 4 days, cultures held 5 days. 05/13/25 06:44 Blood,Venous Blood Culture - Preliminary No growth after 4 days, cultures held 5 days. 05/14/25 05:30 Sputum - Luki Gram Stain - Final 05/14/25 05:30 Sputum - Luki Sputum Culture - Preliminary Escherichia coli Serratia marcescens 05/14/25 04:06 Perirectal MRSA Screen - Final No growth of MRSA after 2 days. 05/16/25 05:40 Stool/feces Stool Occult Blood (DEIDRA) - Final Entered by: Nathan Ramos (ICU)EMMA on 05/17/25 0917 Report Signed by: Nathan FonsecaICU) Rachel CARTER on 05/17/25 0922 <<Signature on File>> < 1341 <<Signature on File>> <Electronically signed by Jack Miller MD> PROGRESS NOTE CRITICAL CARE Observed: 12:58 PM Status: F Source: [facility] Medical Records Patient: DIONNA CONCEPCION. : 1975 [place], [place] [address] Location: ICU [phone] Unit #: [id number] Progress Note Critical Care Nathan Ramos (ICU) EMMA Service Dt/Tm: 05/16/25 1419 <Statement entered by Jack Miller MD - 05/17/25 12:58> Patient is seen and examined at the bedside. Agree with Nathan Ramos PROGRAM TECHNICIAN. Overall condition improved. He is more arousable following simple commands. Off vasopressors. Remains on broad spectrum antibiotics for ascending cholangitis.Will proceed with extubation. Assessment AND Plan (1) Sepsis: Qualifiers: Sepsis type: sepsis due to unspecified organism Sepsis acute organ dysfunction status: unspecified Qualified Code(s): A41.9 - Sepsis, unspecified organism Status: Acute Plan: Most likely secondary to acute choledocholithiasis, GI consulted Infectious disease consulted, appreciate recommendations. Plan for ERCP 05/15/2025 Management of antibiotics per infectious disease. WBC downtrending (2) Wernickes encephalopathy: Status: Acute Plan: As identified on brain MRI and CT imaging. Thiamine 500 x 9 doses (3) On mechanically assisted ventilation: Status: Acute Plan: CXR/CT findings consistent with emphysema in a patient with known tobacco abuse. Secondary to encephalopathy Vent order set Daily SAT/SBT Minimal vent settings Having recurrent apnea during SBT, still having severe encephalopathy limiting extubation. (4) Metabolic acidosis: Status: Acute Plan: Compensated with his respiratory status, set back up vent settings with minute ventilation around 10 to avoid overcorrection and worsening acidemia Will hold off on bicarb infusion at this time Also with a component of hyperchloremic metabolic acidosis with a serum chloride of 115. Trend VBG (5) GI bleed: Qualifiers: GI bleed type/associated pathology: unspecified gastrointestinal hemorrhage type Qualified Code(s): K92.2 - Gastrointestinal hemorrhage, unspecified Status: Acute Plan: No evidence of GI bleed on EGD yesterday 05/15/2025. (6) Alcohol withdrawal: Qualifiers: Complication of substance-induced condition: with delirium Qualified Code(s): F10.931 - Alcohol use, unspecified with withdrawal delirium Status: Suspected Plan: [facility] protocol Sedation with Versed drip Seizure precautions MVI, thiamine, folic acid (7) Alcoholism: Status: Chronic Plan: CIWA scale (8) Sinus tachycardia: Status: Acute Plan: Most likely secondary to alcohol withdrawal in combination with septic shock Fluid resuscitation Treat underlying etiologies Avoid beta-blockers for acute sinus tachycardia in the ICU setting. Plan DAILY ICU EVENTS: 05/14-transfer to ICU after increased encephalopathy, leukocytosis, tachycardic, tachypnea. ID on consult. Abd tender and guarded to palpation. Pt obtunded after [address] abd/pelvis ordered. Surgery consulted due to concerns for bowel perforation or other pathology. Pt intubated for airway protection. IV atb changed back to Zosyn. 05/15: Decreasing pressor needs in the last 24 hours, no longer on vasopressin, continue hydrocortisone, plan for ERCP later today. Continue thiamine for Warnicke's encephalopathy. Okay with SAT, hold off on SBT until no further procedures are planned. 05/16: Patient is doing much better today, off all vasopressors. Versed has been turned off, patient remains encephalopathic, awake and moving all extremities but nothing to command or purposeful. Critical Care Checklist Analgesia: [Fentanyl as needed Sedation: [None] Vasoactive Infusions: N/A De-escalation of Antibiotics: [Unasyn] VTE Prophylaxis: [ SCDs, Lovenox on hold due to active OG tube bloody output.] PUD prophylaxis: PPI twice daily Bowel prophylaxis: Last BM [] Nutrition: [Tube feedingIf unable to be extubated] IV Fluids: [LR 50/hr] Glycemic Control: [N/A] AM Labs/Imaging: [Ordered ] Daily Sedation Holiday: [Yes] SBT Readiness: [Delay until further procedures are done] Head of Bed: [ > 30 degrees] PT/OT: [ N/A ] Case Man/Social Work: [N/A] Spiritual Care/Palliative/Ethics: [N/A] Family Update: At bedside Critical Care total time in minutes: 40 Code Status 05/11/25 18:30 Code Status Routine Resuscitation Status: Full Code Code Status Order Placed: Code Status Ordered 05/11/25 at 1830 Discussed Patient's Care With: Nurse, Case Management, Physician and Therapist Subjective Subjective: Patient seen and examined at bedside this morning. He remains intubated and sedated. Current Evaluation: Patient showing favorable progress Review of Systems Unable to do a review of systems due to: Non-Verbal and Patient on ventilator Objective General Appearance: Not alert, Resting Comfortably, and On Vent HEENT: Oral Mucosa Moist and Other (ET tube in place) Skin: Color normal, warm, dry Neck: Normal Inspection Cardiovascular: Regular Rate and Rhythm, S1, S2 Left Lung: Throughout: Clear Right Lung: Throughout: Clear Lungs: Good Air Entry; Negative Respiratory Distress Abdomen: Soft, Nontender to palpation Extremities: Activity as expected, Warm, and Dry; Negative Edema Neurologic: Grossly Intact and Moves all extremities Psychological: Deferred Vital Signs - 24 hr 05/16/25 13:58 48 L 10 L 99 05/16/25 13:30 10 L 108/77 99 05/16/25 13:23 56 L 17 99 05/16/25 13:12 05/16/25 13:02 52 L 14 98 05/16/25 13:01 53 L 14 102/79 98 05/16/25 13:00 61 15 99 05/16/25 12:55 65 14 99 05/16/25 12:50 53 L 16 99 05/16/25 12:45 50 L 12 99 05/16/25 12:40 43 L 15 100 05/16/25 12:31 52 L 15 109/76 99 05/16/25 12:30 53 L 19 99 05/16/25 12:20 52 L 20 99 05/16/25 12:18 53 L 17 99 05/16/25 12:10 47 L 17 100 05/16/25 12:08 64 17 100 05/16/25 12:01 45 L 12 104/67 100 30 05/16/25 12:00 45 L 14 100 05/16/25 11:44 97.7 F 05/16/25 11:32 52 L 18 100 05/16/25 11:31 48 L 15 104/76 100 30 05/16/25 11:01 52 L 13 117/92 H 100 05/16/25 11:00 52 L 12 100 05/16/25 10:32 50 L 15 100 05/16/25 10:31 47 L 16 112/73 100 30 05/16/25 10:03 30 05/16/25 10:02 70 8 L 100 30 05/16/25 10:01 54 L 11 L 106/74 100 30 05/16/25 10:00 51 L 15 100 05/16/25 09:31 52 L 12 106/72 100 05/16/25 09:02 53 L 15 100 05/16/25 09:01 52 L 14 105/73 100 30 05/16/25 09:00 53 L 15 100 30 05/16/25 08:32 16 99 30 05/16/25 08:30 30 05/16/25 08:14 46 L 16 110/67 99 05/16/25 08:01 45 L 16 110/67 99 30 05/16/25 08:00 47 L 16 99 05/16/25 07:31 89 16 102/67 99 05/16/25 07:30 97.3 F L 05/16/25 07:02 43 L 16 100 05/16/25 07:01 43 L 16 92/63 100 30 05/16/25 07:00 44 L 16 100 05/16/25 06:32 93 16 100 05/16/25 06:31 91 16 91/63 100 05/16/25 06:01 48 L 16 95/62 99 05/16/25 06:00 51 L 16 99 05/16/25 05:31 51 L 16 106/73 99 05/16/25 05:01 47 L 16 102/73 98 05/16/25 05:00 46 L 16 98 05/16/25 04:30 45 L 16 107/75 100 05/16/25 04:30 96.8 F L 05/16/25 04:01 86 16 98 07/11/25 04:00 50 L 16 95/70 99 05/16/25 03:56 45 L 16 88/60 L 98 05/16/25 03:30 48 L 16 88/60 L 98 05/16/25 03:01 96 16 100 05/16/25 03:00 46 L 16 88/61 L 100 05/16/25 02:30 64 16 93/64 100 05/16/25 02:01 42 L 16 99 05/16/25 02:00 46 L 16 102/73 99 05/16/25 01:30 44 L 16 98/73 99 05/16/25 01:01 52 L 16 99 05/16/25 01:00 47 L 16 100/75 99 05/16/25 00:30 48 L 16 102/75 99 05/16/25 00:01 86 14 98 05/16/25 00:00 90 16 95/75 98 05/15/25 23:30 74 16 98/72 99 05/15/25 23:24 43 L 16 106/79 98 05/15/25 23:00 96 16 106/79 100 05/15/25 22:30 95 16 96/73 99 05/15/25 22:01 50 L 16 98 05/15/25 22:00 104 H 16 95/75 98 05/15/25 21:30 55 L 16 110/79 99 05/15/25 21:21 97.3 F L 05/15/25 21:01 53 L 16 100 05/15/25 21:00 59 L 16 113/81 100 05/15/25 21:00 30 05/15/25 20:30 55 L 16 119/83 100 05/15/25 20:01 59 L 17 100 05/15/25 20:00 55 L 16 115/87 100 05/15/25 19:58 59 L 16 122/84 100 05/15/25 19:30 59 L 16 122/84 99 30 05/15/25 19:01 59 L 16 97 30 05/15/25 19:00 59 L 16 115/78 97 05/15/25 18:30 63 16 121/85 99 05/15/25 18:01 65 16 99 30 05/15/25 18:00 70 16 118/84 99 05/15/25 17:50 72 16 98 05/15/25 17:48 73 16 104/77 98 05/15/25 17:46 78 15 100 05/15/25 17:45 71 103/73 100 05/15/25 16:54 64 23 H 100 05/15/25 16:53 59 L 14 112/82 100 30 05/15/25 16:48 59 L 16 100 30 05/15/25 16:32 57 L 16 98 05/15/25 16:31 56 L 16 112/82 100 05/15/25 16:01 62 16 111/83 98 05/15/25 16:00 62 16 98 05/15/25 15:31 65 16 107/80 98 05/15/25 15:20 97.1 F L 05/15/25 15:02 64 16 98 05/15/25 15:02 64 16 109/81 98 05/15/25 15:01 65 16 109/81 99 05/15/25 15:00 63 16 99 05/15/25 14:47 57 L 16 98 05/15/25 14:46 64 16 111/80 98 30 05/15/25 14:41 60 16 108/81 99 05/15/25 14:30 64 16 108/81 99 Intake AND Output Intake Total 788 1074 922 Output Total 250 155 160 Balance 538 919 762 Actual Weight (Kg) 66.5 kg Intake: IV Intake (ml) 734 852 620 Tube Feeding Intake (ml) 54 222 202 Tube Feeding Flush Intake (ml) 100 Output: Indwelling Urinary Catheter 250 155 160 Output (ml) Other: Weight Measurement Method Built in [facility] Number of Incontinent Stools 2 Amount of Stools Medium Stool Color Brown Stool Consistency Loose Current Clinical Active Medications Amlodipine Besylate (Amlodipine Besylate 10 Mg Tab) 10 mg PO DAILY RENAN Stop: 08/19/25 09:01 Last Admin: 05/14/25 09:29 Dose: Not Given Artificial Tears (Artificial Tear Ointment 3.5 Gm Tube) 1 appl OU BID RENAN Stop: 08/21/25 09:01 Last Admin: 05/16/25 09:04 Dose: 1 appl Aspirin (Aspirin Chw 81 Mg Tab) 81 mg PO DAILY RENAN Stop: 08/19/25 09:01 Last Admin: 05/14/25 09:29 Dose: Not Given Atorvastatin Calcium (Atorvastatin Calcium 40 Mg Tab) 40 mg PO QHS RENAN Stop: 08/18/25 21:01 Last Admin: 05/13/25 21:14 Dose: 40 mg Chlorhexidine Gluconate (Chlorhexidine Gluconate 0.12% 30 Ml Btl (Vent Protocol)) 30 ml MT BID@08,20 RENAN Stop: 08/21/25 08:01 Last Admin: 05/16/25 08:13 Dose: 30 ml Diphenhydramine HCl (Diphenhydramine Hcl 25 Mg Cap) 25 mg PO QHSPRN PRN PRN Reason: insomnia Stop: 08/19/25 07:46 Docusate Sodium (Docusate Sodium 100 Mg Cap) 100 mg PO BIDPRN PRN PRN Reason: Constipation Stop: 08/19/25 07:46 Electrolyte Protocol (Phosphorus Replacement Protocol) 1 ea MD DIRECTED PRN; Protocol PRN Reason: SEE COMMENTS BELOW Stop: 08/19/25 07:46 Electrolyte Protocol (Calcium Replacement Protocol) 1 ea MD DIRECTED PRN; Protocol PRN Reason: SEE COMMENTS BELOW Stop: 08/19/25 07:46 Electrolyte Protocol (Magnesium Replacement Protocol 1 Ea Ea) 1 ea MD DIRECTED PRN; Protocol PRN Reason: SEE COMMENTS BELOW Stop: 08/19/25 07:46 Electrolyte Protocol (Potassium Replacement Protocol 1 Ea Ea) 1 ea MD DIRECTED PRN; Protocol PRN Reason: SEE COMMENTS BELOW Stop: 08/19/25 07:46 Enoxaparin Sodium (Enoxaparin Sodium 40 Mg/0.4 Ml Syr) 40 mg SC DAILY [facility] Stop: 08/19/25 09:01 Last Admin: 05/14/25 10:20 Dose: Not Given Ethyl Alcohol (Nasal Antiseptic (Nozin Nasal Cad Programmer) 1 Ampule) 1 each BNOS BID RENAN Stop: 08/20/25 09:01 Last Admin: 05/16/25 09:05 Dose: 1 each Fentanyl Citrate (Fentanyl Citrate 100 Mcg/2 Ml Amp) 50 mcg IV PUSH Q4HPRN PRN PRN Reason: Pain, Moderate to Severe Stop: 08/21/25 10:51 Hydrocortisone Sodium Succinate (Hydrocortisone Na Succinate 100 Mg/2 Ml Vial) 50 mg IV PUSH QID@0000,0600,1200,1800 [facility] Stop: 08/21/25 18:01 Last Admin: 05/16/25 11:39 Dose: 50 mg Dexmedetomidine HCl (Precedex Premix) 400 mcg in 100 mls @ 3.07 mls/hr IV DIRECTED RENAN; Protocol Stop: 08/21/25 05:46 Last Titration: 05/16/25 09:56 Dose: Infused Thiamine HCl 500 mg/ Sodium (Chloride) 55 mls @ 110 mls/hr IVPB Q8H RENAN Stop: 05/17/25 00:29 Last Infusion: 05/16/25 09:53 Dose: Infused Propofol (Diprivan) 1,000 mg in 100 mls @ 3.684 mls/hr IV DIRECTED RENAN; Protocol Stop: 08/21/25 08:31 Last Titration: 05/16/25 09:57 Dose: Infused Norepinephrine/Dextrose (Levophed Premix) 4 mg in 250 mls @ 11.513 mls/hr IV DIRECTED RENAN; Protocol Stop: 08/21/25 09:31 Last Titration: 05/16/25 09:56 Dose: Infused Midazolam HCl (Versed Premix) 100 mg in 100 mls @ 1 mls/hr IV DIRECTED RENAN; Protocol Stop: 08/21/25 09:46 Last Titration: 05/16/25 09:56 Dose: Infused Folic Acid 1 mg/ Sodium (Chloride) 50.2 mls @ 50.2 mls/hr IVPB DAILY RENAN Stop: 08/21/25 13:01 Last Infusion: 05/16/25 09:56 Dose: Infused Ampicillin Sodium/Sulbactam (Sodium 3 gm/ Sodium Chloride) 100 mls @ 200 mls/hr IVPB Q6H RENAN Stop: 05/21/25 12:01 Last Infusion: 05/16/25 12:20 Dose: Infused Lactated Ringer's (Lr) 1,000 mls @ 50 mls/hr IV DIRECTED RENAN Stop: 08/22/25 11:16 Last Admin: 05/15/25 23:07 Dose: 50 mls/hr Thiamine HCl 250 mg/ Sodium (Chloride) 52.5 mls @ 105 mls/hr IVPB DAILY RENAN Stop: 05/19/25 09:29 Lactobacillus Rhamnosus (Lactobacillus Rhamnosus (Gg) 1 Ea Cap) 1 ea PO DAILY RENAN Stop: 06/13/25 09:01 Last Admin: 05/16/25 09:04 Dose: 1 ea Melatonin (Melatonin 3 Mg Tab) 3 mg PO QHSMRX1 PRN PRN Reason: insomnia Stop: 08/19/25 07:46 Multivitamins/Minerals (Multivitamin W Minerals 1 Each Tab) 1 tab PO DAILY RENAN Stop: 08/21/25 09:01 Last Admin: 05/16/25 09:04 Dose: 1 tab Ondansetron HCl (Ondansetron 4 Mg/2 Ml Vial) 4 mg IV PUSH Q6HPRN PRN PRN Reason: Nausea and Vomiting Stop: 08/19/25 07:46 Last Admin: 05/13/25 23:49 Dose: 4 mg Pantoprazole Sodium (Pantoprazole Na 40 Mg Vial) 40 mg IV PUSH BID RENAN Stop: 08/22/25 12:01 Last Admin: 05/16/25 09:04 Dose: 40 mg Thiamine HCl (Thiamine Hcl 200 Mg/2 Ml Vial) 100 mg IV PUSH DAILY RENAN Stop: 08/27/25 09:01 Diet: 05/15/25 18:03 Tube Feeding Tube Feeding Options: Continuous Texture: NPO Fluid Restrictions?: No Free Water Amount (ml): 100 Frequency: q6hr Tube Feeding Products: Jevity 1.2 Tube Feeding Starting Rate: 50 ml/hr Tube Feeding Goal Rate: 60 ml/hr Advance Rate Instructions: Advance to goal rate as tolerated. Data Hematology WBC 9.5 RBC 2.62 L Hgb 8.8 L Hct 25.8 L MCV 98.3 H MCH 33.5 H MCHC 34.1 RDW 19.5 H Plt Count 91 L Chemistry Sodium Potassium Chloride Carbon Dioxide Anion Gap BUN Creatinine GFR Calculation POC Whole Bld Glucose 122 H 129 H Random Glucose Calcium Ionized Calcium 1.15 Magnesium Total Bilirubin AST ALT Alkaline Phosphatase Total Protein Albumin Albumin/Globulin Ratio Sodium 143 Potassium 3.5 L Chloride 116 H Carbon Dioxide 19 L Anion Gap 8 BUN 26 H Creatinine 0.73 GFR Calculation > 60 POC Whole Bld Glucose 113 H 117 H Random Glucose 119 H Calcium 7.80 L Ionized Calcium Magnesium 2.0 Total Bilirubin 2.1 H D AST 96 H ALT 121 H Alkaline Phosphatase 225 H Total Protein 4.8 L D Albumin 2.5 L D Albumin/Globulin Ratio 1.1 L ABG: Sample Site Vein VBG pH 7.43 H VBG pCO2 at Pat Temp 27 L VBG pO2 at Pat Temp 35 L VBG HCO3 17.7 L VBG O2 Saturation 71 L VBG Base Excess -7 L Respiration Rate 16 Patient Equipment Vent Vent Mode AC FiO2 0.30 Tidal Volume 500 PEEP 5.0 Blood Gas Notified By Yes Microbiology 05/14/25 04:06 Perirectal MRSA Screen - Final No growth of MRSA after 2 days. 05/14/25 05:30 Sputum - Luki Gram Stain - Final 05/14/25 05:30 Sputum - Luki Sputum Culture - Preliminary Escherichia coli Serratia marcescens 05/13/25 06:54 Blood,Venous Blood Culture - Preliminary No growth after 3 days, cultures held 5 days. 05/13/25 06:44 Blood,Venous Blood Culture - Preliminary No growth after 3 days, cultures held 5 days. 05/16/25 05:40 Stool/feces Stool Occult Blood (DEIDRA) - Final Entered by: Nathan Raoms (ICU)EMMA on 05/16/25 1419 Report Signed by: Nathan (ICU) Rachel CARTER on 05/16/25 1614 <<Signature on File>> <Electronically signed by Nathan Ramos (ICU) POWER BALLAST MACHINE OPERATOR> Report Signed by: Jack Miller MD on 05/17/25 1258 <<Signature on File>> <Electronically signed by Jack Miller MD> SPEECH BEDSIDE SWALLOWING EVAL Observed: 05/17/2025 10:22 AM Status: F Source: [facility] Speech Therapy Department Patient: DIONNA CONCEPCION [address] : 1975 [place] [address] Location: ICU [phone] Unit #: [id number] Speech Bedside Swallowing Eval Nina Cleveland [facility]REAL TIME TRADER Service Date: 05/17/25 Speech Bedside Swallowing Eval - Speech Bedside Swallowing Eval Type of Note: Initial Evaluation Type of Evaluation: Acute Evaluation Date: 05/17/25 Start Time: 09:55 End Time: 10:16 Diagnosis: Sepsis Referring Physician: Jonnyuing - Patient History Patient History: 57-year-old male with past history of CVA. He presented to the emergency room of [facility] with chief complaints of excessive fatigue and generalized weakness since 2 months. He mentions being diagnosed with CVA 2 months ago and has left-sided weakness, paresthesias and facial drooping ever since then. He has history of multiple falls. Does not want to get evaluated. He mentions history of alcohol abuse. Lab data. CBC WBC 13.4, Hb 15, platelet count 342. Potassium 2.9, BUN 21, creatinine 0.73. Troponin 6,. Pro-Anibal 0.18. EKG suggestive of sinus rhythm. CT head suggestive of hypodensity in the posterior right frontal lobe which may represent a subacute right MCA infarct. He is provisionally diagnosed with subacute right MCA infarct with hypokalemia and was admitted to the floor under my service for further management. Stroke team consulted and MRI imaging of brain requested. Plan to continue aspirin 81 Mg OD, replace electrolytes and wait on MRI results. - Medical History Medical History: Medical History (Last Reviewed 05/15/25 @ 17:00 by Chris Velasquez MD) Acute respiratory failure Alcoholism Chronic pancreatitis CVA (cerebral vascular accident) left sided defecits Fatigue History of right MCA stroke Hypertension Hypertriglyceridemia Metabolic encephalopathy Smoker - Surgical History Surgical History: Surgical History (Last Reviewed 05/15/25 @ 17:00 by Chris Velasquez MD) S/P rotator cuff repair - Patient Identifiers 2 Patient ID's Checked: Name, Patient at Risk for Falls: Yes - Current Diet Level PO: Thin Liquids - OBSERVATIONS (Pt Status and Abilities) Feeding Abilities: Dependent Feeder Was Patient on a Mechanical Ventilator: Yes - extubated 05/16 Respiratory Status: Supplemental Oxygen Observations: Alert, Cooperative - REPORTS (By Patient, Family or Staff) Reports: Difficulties with Liquids, Difficulties with Food - DYSPHAGIA ASSESSMENT (Oral-Motor Eval) Abnormalities: Functional Natural Teeth Oral Mucosa Characteristics: Moist - Assessing Jaw, Lips, and Tongue Jaw: Assessed Opens and Closes Jaw With Good Strength: WNL Labial Function: Assessed Labial Closure at Rest: WNL Labial Coordination/ROM: WNL Labial Sensitivity: WNL Lingual Function: Assessed Lingual ROM - Anterior Posterior: WNL Lingual ROM - Lateral: WNL Lingual ROM - Elevate/Depress: WNL Lingual Strength - Anterior Posterior: WNL Lingual Strength - Lateral: WNL Lingual Strength - Elevate/Depress: WNL Tongue Protrusion: Medial - Soft Palate Soft Palate: Assessed Soft Palate Closure: WNL Resonance: Normal - DYSPHAGIA ASSESSMENT (Laryngeal Exam) Laryngeal Examination: Assessed Vocal Quality: Normal Volitional Cough: Strong Hyolaryngeal Excurion: Functional Adequate Phonation Time: Yes Timely Swallow Triggered: Yes - Trialing Different Textures Items Presented By: Spoon, Cup, Straw, Partial Assist Regular: WNL, Throat Clear Soft AND Bite-Sized (SB6) (Dysphagia 3 Soft/Chopped): WNL, Throat Clear Puree (PU4) (Dysphagia 1 Pureed): WNL, Throat Clear Thin Liquids: Change in Vocal Quality, Overt Cough, Throat Clear Mildly Thick (MT2) ([place] Consistency Liquid): WNL, Throat Clear - DIAGNOSIS Diagnosis: Pharyngeal Dysphagia - RECOMMENDATIONS Overall Impressions: Patient presents with suspected pharyngeal dysphagia. Patient trialed regular, soft and bite sized, puree, thin liquids, and mildly thick liquids with throat clear on all but 2 trials. No changes in saturation noted. Patient does have prolonged mastication time with regular. Unclear if throat clear is out of habit or significant. ST recommending initiating soft and bite sized and mildly thick liquids. ST to follow up and determine if further testing or change in diet is needed. RN notified. PO: Soft AND Bite Sized (SB6) (Dysphagia 3 Soft/Chopped), Mildly Thick (MT2) ([place] Consistency Liquid) NPO: No Presentation of Medications: Crushed: Pills/Tablets Crushed and Mixed with Puree - Precautions/Safe Eating Strategies Precautions/Safe Eating Strategies: Standard Pulmonary Precautions, Small Bites/Sips, Sit Up at 90 Degrees, Sit Up 30 Minutes After Meal, Eat Slowly, Dependent Feed - GOALS Tolerate diet advancement: Yes Perform larynx elevation/closure: Yes Perform timing/initiation/coordination: Yes Educate staff/family re: safe eating strategies: Yes Educate staff/family re: diet modification with: Yes - PLAN Therapy Warranted: Yes Rehab Potential: Fair Barriers to Learning: Comorbidities, Decreased Cognition # of Times per Week: 3-4 # of Minutes per Day: 8-15 Duration (in days): 10 Multidisciplinary Education Form Completed: No Physician Notified: No Family Notified: Yes cc: Dictated by: Nina Cleveland CCC-REAL TIME TRADER on 05/17/25 1016 Entered by: CHANDLER Blood on 05/17/25 1016 Report Signed by: Nina Cleveland on 05/17/25 1022 <<Signature on File>> <Electronically signed by Nina Cleveland [facility]REAL TIME TRADER> Co-Signed by: on METER GLUCOSE Collected: 6:00 AM Status: F Source: [facility] TYPE CODE TESTS RESULT OUT OF RANGE REFERENCE UNITS LAB L702.1000 Meter Glucose 124 High 70-110 mg/dl Performed By: #### L702.1000 #### Main Laboratory ([facility]) [address] [place] [address] Regan Sahni MD COMPREHENSIVE METABOLIC PANEL Collected: 05/17/2025 4 :35 AM Status: F Source: [facility] TYPE CODE TESTS RESULT OUT OF RANGE REFERENCE UNITS LAB L400.1400 Sodium 146 High 135-145 mEq/L LAB L400.1500 Potassium 3.7 Normal 3.6-5.0 mEq/L LAB L400.1600 Chloride 117 High 101-111 mEq/L LAB L400.1700 Carbon Dioxide 21 Normal 21-32 mEq/L LAB L400.1800 Anion Gap 8 Normal 4-12 LAB L400.1820 Glucose 122 High 70-110 mg/dL LAB L400.1835 BUN 23 High 7-20 mg/dL LAB L400.1840 Creatinine 0.67 Normal 0.60-1.30 mg/dL LAB L400.1845 GFR Calculation > 60 Normal Result Comment: Chronic Kidn ey Disease stages by NKDF Stage eGFR I >90 II 60-89 III 30-59 IV 15-29 V <15 or dialysis Note: Information regarding the eGFR equation used can be found at https://[email or web address].org/dutk-gsnrn-[email or web address]. AGE(years) AVERAGE GFR 50-59 93 ml/min/1.73 square meters Note:This result is normalized to 1.73 square meter body surface area. Height and weight are not factored. LAB L400.1900 AST/SGOT 78 High 15-41 IU/L LAB L400.1950 Alk Phos 346 High 41-137 IU/L LAB L400.2000 Bili,Total 1.7 High 0.2-1.0 mg/dL LAB L400.2100 Calcium 8.10 Low 8.8-10.5 mg/dL LAB L400.2120 Albumin 2.8 Low 3.5-5.0 g/dL LAB L400.2140 Total Protein 5.0 Low 6.2-8.0 g/dL LAB L400.2160 Alb/Glob Ratio 1.3 Low 1.5-2.5 LAB L400.4400 ALT/SGPT 105 High 10-40 IU/L Performed By: #### L400.0076 , L400.2200, L400.5100 #### Main Laboratory ([facility]) [address] [place] [address] Regan Sahni MD PHOSPHORUS Collected: 4:35 AM Status: F Source: [facility] TYPE CODE TESTS RESULT OUT OF RANGE REFERENCE UNITS LAB L400.2200 Phosphorus 2.7 Normal 2.4-4.7 mg/dL Performed By: #### L400.0076 , L400.2200, L400.5100 #### Main Laboratory ([facility]) [facility] [place] [address] Regan Sahni MD MAGNESIUM Collected: 4:35 AM Status: F Source: [facility] TYPE CODE TESTS RESULT OUT OF RANGE REFERENCE UNITS LAB L400.5100 Magnesium 2.1 Normal 1.8-2.5 mg/dL Performed By: #### L400.0076 , L400.2200, L400.5100 #### Main Laboratory ([facility]) [facility] [place] [address] Regan Sahni MD IONIZED CALCIUM Collected: 4:35 AM Status: F Source: [facility] TYPE CODE TESTS RESULT OUT OF RANGE REFERENCE UNITS LAB L400.0049 Ionized Calcium 1.17 Normal 1.15-1.29 mmol/L Performed By: #### L400.0049 #### Main Laboratory ([facility]) [facility] [place] [address] Regan Sahni MD CBC WITHOUT DIFFERENTIAL Collected: 10/2025 4:35 AM Status: F Source: [facility] TYPE CODE TESTS RESULT OUT OF RANGE REFERENCE UNITS LAB L100.0100 WBC 7.7 Normal 4.4-10.5 th/cmm LAB L100.0300 RBC 2.77 Low 4.50-6.00 mil/cmm LAB L100.0400 Hemoglobin 9.3 Low 13.5-16.5 gm/dL LAB L100.0500 Hematocrit 27.1 Low 40.0-49.0 % LAB L100.0600 MCV 97.7 High 80-97 CU DEIDRA LAB L100.0700 MCH 33.7 High 27.5-33.0 PG LAB L100.0800 MCHC 34.5 Normal 33.0-36.0 gm/dL LAB L100.0900 RDW 19.5 High 12.0-16.0 % LAB L100.1000 Platelet Count 88 Low 150-400 th/cmm Performed By: #### L100.0050 #### Main Laboratory ([facility]) [address] [place] [address] Regan Sahni MD METER GLUCOSE Collected: 5 11:54 PM Status: F Source: [facility] TYPE CODE TESTS RESULT OUT OF RANGE REFERENCE UNITS LAB L702.1000 Meter Glucose 124 High 70-110 mg/dl Performed By: #### L702.1000 #### Main Laboratory ([facility]) [facility] [place] [address] Regan Sahni MD METER GLUCOSE Collected: 5 5:25 PM Status: F Source: [facility] TYPE CODE TESTS RESULT OUT OF RANGE REFERENCE UNITS LAB L702.1000 Meter Glucose 128 High 70-110 mg/dl Performed By: #### L702.1000 #### Main Laboratory ([facility]) [address] [place] [address] Regan Sahni MD SOCIAL WORK DAILY NOTE Observed: 025 3:29 PM Status: F Source: [facility] National Recruiter Patient: DIONNA CONCEPCION [address] : 1975 [place], [place] [address] Location: ICU [phone] Unit #: [id number] Social Work Daily Note Yeimy Shah BEST WORKER, AUTOMOBILE RENTAL AGENT Service Date: 05/16/25 SW Daily Note - * Psychosocial Assessment * I have reviewed nursing and case management psychosocial information.: Yes - * Hospital Stay Days * Day 1 Note: 05/14/2025: SW c/s for Substance Abuse Screening. Tad Ambetter. CIWA. +tox for cannabinoids on admission. Hx of alcohol abuse. Enecphalopathy. Pt intubated overnight. National Recruiter to follow peripherally to discuss with pt when medically appropriate. Top Case Assembler: Yeimy Shah, BEST WORKER, AUTOMOBILE RENTAL AGENT Day 2 Note: 05/15/2025: SW following for Substance Abuse Screening. Tad Ambetter. CIWA. +tox for cannabinoids on admission. Hx of alcohol abuse- Wernickes Enecphalopathy. Pt remains intubated this date. SW updated by nursing staff that the pt's family is requesting pt d/c to a SNF in the [place], [place] area when medically ready for d/c. SW called and discussed this with pt's daughter, Maria Fernanda. Maria Fernanda reports most of the family lives between [place] and [place], so [place] would be a good middle location. KAYLENE briefly explained that pt will need to be able to participate with therapy in order for insurance to approve a SNF OR pt will need to have funds to private pay OR pt will need to have Medicaid. Maria Fernanda would like to see how the pt progresses to determine if it will be a short term or mcfp placement. Maria Fernanda reports she has not talked with her father in 3 years. Maria Fernanda is unaware of pt's finances and does not know of any POA paperwork that the pt has ever completed. Maria Fernanda stated that the pt is not legally to anyone. Maria Fernanda reports the pt has three living children: Maria Fernanda Glynn PH: [phone], Beverly Concepcion PH: [phone] AND Dionna Concepcion PH: [phone]. Maria Fernanda reports Dionna will likely not want to participate in any decision making for the pt. KAYLENE explained that in [place] if there is no POA/Guardian and if pt is not legally , that any decisions will need to be a consensus between all living children. Maria Fernanda voiced understanding. Maria Fernanda would like to review a list of SNFs in [place], [place] to begin reviewing. [place] Fern[place] [address]. A list of SNFs within 30 miles of Maria Fernanda's address with quality scores emailed to Maria Fernanda at [email or web address]. KAYLENE requested Maria Fernanda to provide a list of 5-10 choices as pt may be a difficult placement d/t history of alcohol abuse and insurance. D/c planning needs pending medical course. SW to continue following. Top Case Assembler: Yeimy Shah MSW, LISW Day 3 Note: 05/16/2025: SW following for Substance Abuse Screening. Pavan TRIPLETT. +tox for cannabinoids on admission. Hx of alcohol abuse- Wernickes Enecphalopathy. Pt remains intubated this date. D/c planning needs pending medical course. SW to continue following. Top Case Assembler: Yeimy Shah MSW, LISW - * Requested Intvs/Referrals * Top Case Assembler I Referrals: Substance Abuse Screening - Community Services/Interventions Substance Use Screening: Initiated - * HEALTHCARE DECISIONS * Living Will: Unknown Durable Power of Cable Splicer Helper for Health Care: No Directive, No SS Referral [facility] DNR Comfort Care: No Directive, No SS Referral [facility] DNR Comfort Care Arrest: No Directive, No SS Referral Entered by: DENISSE Abreu LISW on 05/16/25 1315 Report Signed by: Yeimy Shah on 05/16/25 1529 <<Signature on File>> <Electronically signed by KARLA Ellis> Report Signed by: on POTASSIUM Collected: 2:19 PM Status: F Source: [facility] TYPE CODE TESTS RESULT OUT OF RANGE REFERENCE UNITS LAB L400.1500 Potassium 4.1 Normal 3.6-5.0 mEq/L Performed By: #### L400.1500 #### Main Laboratory ([facility]) [address] [place] [address] Regan Sahni MD CASE MANAGEMENT DAILY NOTE Observed: 09/2025 2:18 PM Status: F Source: [facility] Case Management Patient: DIONNA CONCEPCION [address] : 1975 [place], [place] [address] Location: ICU [phone] Unit #: [id number] Case Management Daily Note Sonja Mcmahan Service Date: 05/16/25 Case Mgmt Daily Note - Plan of Care Wood Drilling Machine Operator Agrees with Attending and Consult Plan: Yes - Patient Preferences AND Goals What is the patient's preference?: Services to be Determined Recommended acute discharge goals: Services to be Determined - Hospital Stay Days Day 1 Comment: 05/11 - Spoke with patient at bedside. Patient has Pavan Huynh. PCP is Pam Camara. director of player personnel is his father, Dionna. Pharmacy is [facility]. Denies services, DME. He is independent of ADLS and drives. He lives with his brother and father in a 1 story home with no steps to enter. Denies LW/DPOA. Per primary nurse, Jenni, she states that EMS reported that family stated patient has been depressed and having trouble with his left side weakness from his stroke 2 months ago. Also states he has been falling at home. Wood Drilling Machine Operator: Ana Snyder, RN Day 2 Comment: 05/12 - Spoke with pt. MRI completed and pending results. Neuro following. PT/OT ordered and recommended IPR. Rehab consulted to review case and waiting on response. Wood Drilling Machine Operator: Shelbi Jackson Day 3 Comment: 05/13 Dispo pending medical course. IPR following, c/s placed 05/12. MRI B (-) for acute CVA. WBC 42.9. Lactic 3.7. BC/UA/Sputum Cx. IV Rocephin/IVF. PT/OT. Wood Drilling Machine Operator: Jimena Carcamo, RN Day 4 Comment: 05/14: Patient transferred to ICU overnight. Intubated. PEEP 5. FiO2 40%. Propofol. Versed. Levo. Vaso. IVP Solu Cortef QID. Seizure precautions. WBC 36.5. 05/13 blood cultures pending. IV unasyn Q6. ID following. MRCP today. Surgery following. SW d/t alcohol abuse. Needs TBD pending medical medical course. Wood Drilling Machine Operator: Sonja Mcmahan Day 5 Comment: 05/15: Patient remains intubated. PEEP 5. FiO2 30%. Versed. Levo. IVP Solu Cortef QID. IV ampicillin Q6. WBC 25.3. 7/9 sputum positive. 7/8 blood cultures negative to date. GI following, ERCP today. Surgery following. ID following. SW following d/t alcohol abuse. Needs TBD pending medical course. Wood Drilling Machine Operator: Sonja Mcmahan Day 6 Comment: 05/16: Patient remains intubated. PEEP 5. FiO2 30%. IVP Solu Cortef QID. LR @ 50. ID following. WBC 9.5. IV ampicillin Q6. Hgb 8.8. Needs TBD pending medical course and therapy recs post extubation. Wood Drilling Machine Operator: Sonja Mcmahan - Respiratory Equipment Does the patient use/have any of these devices at home?: N/A - Community Services Substance Use Screening: Initiated - * L * Length of Stay LOS (Including day of Admission and Discharge): 5 LOS Score: 4 - * A * Acuity on Admission ER Provider if admitted from ER (view): RGMAXO Was patient admitted to hospital via Emergency Dept? Score: 3 - * C * Comorbidities Select All Conditions that Apply: Cerebral Disease (Any previous stroke or transient ischemic attack) Comorbidities Total Score: 1 - * E * Emergency Department Visits # of ER visits,6mos prior to admit,excl this admits ER visit: 0 Enter this number or 4 (whichever is smaller): 0 - LACE SCORE LACE Score: 8 - ANTICIPATED DISCHARGE Anticipated Discharge Date: 05/21/25 Entered by: Sonja Mcmahan on 05/16/25 0912 Report Signed by: Sonja Mcmahan on 05/16/25 1418 <<Signature on File>> <Electronically signed by Sonja Mcmahan> Co-Signed by: on ERCP Observed: 05/16/2025 11:55 AM Status: F Source: [facility] Endoscopy Patient: DIONNA CONCEPCION [address] : 1975 [place], [place] [address] Location: ICU [phone] [id number] [id number] Chris Velasquez MD Dictation ID#: [id number] DATE OF PROCEDURE: 05/15/2025. PREPROCEDURE DIAGNOSES: 1. Cholangitis. 2. Common bile duct stone. POSTPROCEDURE DIAGNOSIS: Choledocholithiasis, status post sphincterotomy and stone extraction with balloon. PROCEDURE PERFORMED: ERCP with sphincterotomy and stone extraction with a balloon. ENDOSCOPIST: Chris Velasquez M.D. INDICATION FOR PROCEDURE: Cholangitis, common bile duct stone. MEDICATIONS: Propofol given in increment by the anesthesiologist. ASA CLASSIFICATION: 4 CONSENT: Consent form was obtained from the patient. Procedure, risks, indications, pros and cons, side effects of medication and anesthesia were all discussed in detail. Heart, oxygen and blood pressure monitors were on. The patient was already intubated and fluoroscopy was used for assistance. Complications including bleeding, infection, perforation, and pancreatitis were among the risks discussed. The patient consented and proceeded. DESCRIPTION OF PROCEDURE: The Olympus video therapeutic ERCP scope was then introduced through the mouthpiece and advanced under side views to the second portion of the duodenum. Inspection of distal esophagus, stomach, and duodenum showed normal mucosa. Ampulla was visualized inside the diverticulum. Cannulation of the common bile duct was successful and showing distal filling defect at the ampullary region. Sphincterotomy size to 8 mm was then done at the midline. Balloon sweep with 9-12 mm balloon was successful in extracting yellowish stone fragment. Delayed films showed good drainage of the biliary tree. The stomach was then decompressed. The scope was withdrawn and the patient was taken to the recovery room in stable condition. ESTIMATED BLOOD LOSS: 0 mL. COMPLICATIONS: None. IMPRESSION: Choledocholithiasis, status post sphincterotomy and stone extraction with the balloon. PLAN: 1. Keep n.p.o. 2. Advance diet in the a.m. 3. GI followup in one month post discharge. cc: Tay Camara MD; Chris Velasquez MD Dictated by: Chris Velasquez MD on 05/15/25 1051 Transcribed by: Leora Ayala on 05/15/251946 Report Signed by: Chris Velasquez MD on 05/16/25 1159 <<Signature on File>> <Electronically signed by Chris Velasquez MD> METER GLUCOSE Collected: 5 11:33 AM Status: F Source: [facility] TYPE CODE TESTS RESULT OUT OF RANGE REFERENCE UNITS LAB L702.1000 Meter Glucose 117 High 70-110 mg/dl Performed By: #### L702.1000 #### Main Laboratory ([facility]) [address] [place] [address] Regan Sahni MD VENOUS BLOOD GASES Collected: 5 10:55 AM Status: F Source: [facility] TYPE CODE TESTS RESULT OUT OF RANGE REFERENCE UNITS LAB L901.25977 Venous pH 7.43 High 7.31-7.41 LAB L901.05205 Venous pCO2 27 Low 41-51 mmHg LAB L901.08177 Venous pO2 35 Low 80-105 mmHg LAB L901.58927 Venous Bicarbonate 17.7 Low 23.0-28.0 mmol/L LAB L901.80912 Venous Base Excess -7 Low -2-3 mmol/L LAB L901.49600 Venous O2 Saturation 71 Low 95-98 % LAB L901.48583 Venous FiO2 0.30 Normal LAB L902.80952 ABG Draw Site Vein Normal LAB L902.53371 ABG Device Vent Normal LAB L902.41800 Unit Notified? Yes Normal LAB L902.75835 ABG MODE AC Normal LAB L902.52373 VT 500 Normal LAB L902.86655 RR 16 Normal LAB L902.29949 PEEP 5.0 Normal Performed By: #### L901.1000 0 #### Main Laboratory ([facility]) [address] [place] [address] Regan Sahni MD PROGRESS NOTE SURGICAL Observed: 025 10:49 AM Status: F Source: [facility] Medical Records Patient: DIONNA CONCEPCION [address] : 1975 [place] [address] Location: ICU [phone] Unit #: [id number] Progress Note Surgical Russell Rogers PA-C Service Dt/Tm: 05/15/25 1239 <Statement entered by Ember Khanna MD - 05/16/25 10:46> I evaluated the patient. Available vitals, labs and images were reviewed Assessment/Plan (1) Transaminitis: Status: Acute (2) Small bowel obstruction: Status: Acute (3) CVA (cerebral vascular accident): Status: Acute Qualifiers: CVA mechanism: unspecified Qualified Code(s): I63.9 - Cerebral infarction, unspecified (4) Wernickes encephalopathy: Status: Acute (5) GI bleed: Status: Acute Qualifiers: GI bleed type/associated pathology: unspecified gastrointestinal hemorrhage type Qualified Code(s): K92.2 - Gastrointestinal hemorrhage, unspecified (6) On mechanically assisted ventilation: Status: Acute (7) Metabolic acidosis: Status: Acute (8) Hypertriglyceridemia: Status: Acute (9) Hypertension: Status: Acute Qualifiers: Hypertension type: primary hypertension Qualified Code(s): I10 - Essential (primary) hypertension (10) Hyperbilirubinemia: Status: Acute (11) Lactic acidosis: Status: Acute (12) Alcoholism: Status: Chronic (13) Chronic pancreatitis: Status: Chronic Qualifiers: Pancreatitis type: alcohol induced Qualified Code(s): K86.0 - Alcohol-induced chronic pancreatitis Plan CC admitting General surgery consulting GI consulting Vitals, labs, imaging, and chart reviewed NPO Ventilator management per CC Fluids and cares per primary IV Abx -- Unasyn DVT ppx Levophed on MRCP 05/14/25 Plan for ERCP per GI today 05/15/25 Continue with NG tube Gastrografin challenge likely tomorrow after ERCP complete Dr. Acosta discussed plan with critical care team Will continue to follow Advance Diet: Nothing by mouth Advance Activity: Bedrest Subjective Date of Service: 05/15/25 Patient Information: DIONNA CONCEPCION is a 49 yr old M who was admitted on 05/12/25 for RT MCA INFARCT/LT SIDED WEAKNESS. Patient expresses concerns: No (intubated) Patient states: Shortness of breath and Other (on vent); denies Chest pain Pain control: Moderately controlled (on vent but no apparent distress) CAM Tool Confusion Assessment Method (CAM Tool) 1. Acute onset and fluctuating course Is there evidence of an acute change in mental status from the patient's baseline?: No Did the (abnormal) behavior fluctuate during the day, that is tend to come and go or increase and decrease in severity?: No 2. Inattention Did the patient have difficulty focusing attention, for example, being easily distractible or having difficulty keeping track of what was being said?: No 3. Disorganized Thinking Was the patient???s thinking disorganized or incoherent, such as rambling or irrelevant conversation, unclear or illogical flow of ideas, or unpredictable switching from subject to subject?: No 4. Altered Level Of Consciousness Would you rate the patient's level of consciousness as Vigilant (hyper alert), Lethargic (drowsy, easily aroused), Stupor (difficult to arouse), OR Coma (unarousable)?: No CAM Score Does the patient have a positive CAM score? (Yes to all questions under number 1 and 2, and Yes to question 3 or 4): No Objective Vital Signs Last 48 hours: Vital Signs - 48 hr 05/15/25 12:30 65 16 100/75 97 30 05/15/25 12:15 65 16 101/75 98 05/15/25 12:01 68 16 98 30 05/15/25 12:00 67 16 105/76 98 05/15/25 11:45 68 16 102/76 99 05/15/25 11:30 69 16 109/74 100 05/15/25 11:25 97.1 F L 05/15/25 11:15 68 14 104/76 99 05/15/25 11:01 72 16 98 05/15/25 11:00 70 16 105/81 98 05/15/25 10:47 72 16 109/78 98 05/15/25 10:46 72 20 98 05/15/25 10:45 72 20 109/78 98 05/15/25 10:30 75 20 107/83 99 05/15/25 10:28 72 20 113/82 99 05/15/25 10:16 71 20 99 05/15/25 10:15 70 20 112/83 99 30 05/15/25 10:08 70 20 120/87 99 05/15/25 10:01 73 20 98 05/15/25 10:00 75 20 120/87 98 05/15/25 09:45 76 20 119/89 98 05/15/25 09:31 73 20 98 05/15/25 09:30 72 20 124/76 98 30 05/15/25 09:15 76 20 117/86 98 05/15/25 09:07 80 20 98 05/15/25 09:06 74 20 125/86 98 30 05/15/25 09:01 75 20 100 05/15/25 09:00 73 20 127/87 100 05/15/25 08:50 30 05/15/25 08:31 97.5 F L 71 20 99 30 05/15/25 08:30 68 20 119/78 99 05/15/25 08:16 70 20 99 05/15/25 08:15 70 20 123/82 99 05/15/25 08:01 70 20 98 05/15/25 08:00 72 20 120/79 99 05/15/25 07:53 71 20 122/79 99 05/15/25 07:46 72 20 99 05/15/25 07:45 72 20 122/79 99 05/15/25 07:31 69 20 99 05/15/25 07:30 71 20 120/80 99 05/15/25 07:16 62 20 99 05/15/25 07:15 63 20 118/74 99 05/15/25 07:00 71 20 120/79 99 05/15/25 06:45 68 20 118/77 99 05/15/25 06:30 71 20 115/75 99 05/15/25 06:15 75 20 116/79 99 05/15/25 06:00 70 20 115/76 100 05/15/25 05:45 74 20 118/81 99 05/15/25 05:30 72 20 123/81 99 05/15/25 05:15 72 20 119/82 99 05/15/25 05:00 68 19 117/73 99 05/15/25 04:45 73 20 122/78 99 05/15/25 04:30 61 20 123/77 100 05/15/25 04:15 68 20 121/77 100 05/15/25 04:06 68 20 123/82 100 05/15/25 04:00 97.6 F 73 20 123/82 99 30 05/15/25 04:00 30 05/15/25 03:45 72 20 118/79 99 05/15/25 03:30 73 20 121/81 99 05/15/25 03:15 74 20 118/80 99 05/15/25 03:00 73 20 115/76 100 05/15/25 02:45 67 20 106/76 99 05/15/25 02:30 74 20 115/78 99 05/15/25 02:15 73 20 119/78 99 05/15/25 02:00 73 20 122/80 99 05/15/25 01:45 71 20 125/78 99 05/15/25 01:30 71 20 125/84 100 05/15/25 01:15 64 20 116/78 99 05/15/25 01:00 76 20 127/85 99 05/15/25 00:45 73 20 124/83 99 05/15/25 00:30 77 20 125/84 99 05/15/25 00:15 79 20 120/83 99 05/15/25 00:01 76 20 99 05/15/25 00:00 30 05/15/25 00:00 97.6 F 80 19 120/90 98 30 05/14/25 23:45 68 20 118/79 100 05/14/25 23:30 69 20 119/80 99 05/14/25 23:15 68 20 119/79 99 05/14/25 23:00 72 20 117/78 99 05/14/25 22:50 71 20 116/79 99 05/14/25 22:45 72 20 116/79 99 05/14/25 22:30 72 20 116/77 100 05/14/25 22:18 64 20 110/70 100 05/14/25 21:45 72 20 104/76 99 05/14/25 21:30 74 20 103/72 99 05/14/25 21:15 71 20 102/70 100 05/14/25 21:00 65 20 102/73 100 05/14/25 20:45 66 20 102/75 100 05/14/25 20:30 68 20 104/73 100 05/14/25 20:15 67 20 99/73 100 05/14/25 20:00 40 05/14/25 20:00 66 20 98/67 100 05/14/25 19:51 67 98/69 99 05/14/25 19:45 69 20 98/69 100 05/14/25 19:30 64 20 90/64 99 05/14/25 19:15 71 20 97/71 99 05/14/25 19:00 97.6 F 72 20 94/71 99 40 05/14/25 18:45 75 20 93/70 99 05/14/25 18:30 76 20 90/67 99 40 05/14/25 18:15 78 20 89/64 L 99 05/14/25 18:00 75 20 84/64 L 99 05/14/25 17:45 81 20 84/64 L 99 05/14/25 17:30 85 20 88/67 L 99 05/14/25 17:15 81 20 93/68 99 05/14/25 17:01 74 20 104/76 99 05/14/25 17:00 76 20 99 05/14/25 16:54 71 20 116/79 99 05/14/25 16:45 73 20 117/73 100 05/14/25 16:30 74 20 118/73 99 05/14/25 16:30 97.0 F L 05/14/25 16:15 75 20 111/72 99 05/14/25 16:00 72 20 108/70 99 05/14/25 15:45 78 20 103/70 99 05/14/25 15:30 80 20 102/71 99 05/14/25 15:15 84 20 95/67 99 05/14/25 15:00 86 20 97/71 99 05/14/25 14:45 88 20 92/67 99 05/14/25 14:42 88 18 97/70 99 05/14/25 14:30 95 20 97/70 98 05/14/25 14:24 97 22 H 96/68 98 05/14/25 14:15 98 20 96/69 98 40 05/14/25 14:00 102 H 20 91/65 97 05/14/25 13:45 109 H 20 90/59 L 97 05/14/25 13:30 113 H 20 86/58 L 97 05/14/25 13:26 114 H 21 H 83/60 L 97 05/14/25 13:15 115 H 20 85/60 L 97 05/14/25 13:09 116 H 20 82/59 L 97 05/14/25 13:00 118 H 20 79/56 L 97 05/14/25 12:45 118 H 20 76/53 L 96 05/14/25 12:31 119 H 20 77/52 L 96 05/14/25 12:29 118 H 20 79/57 L 96 05/14/25 12:23 121 H 20 84/63 L 98 05/14/25 12:19 124 H 21 H 84/63 L 99 05/14/25 11:39 101.7 F H 05/14/25 11:10 123 H 21 H 91/62 100 05/14/25 11:00 125 H 25 H 91/62 99 05/14/25 10:45 125 H 27 H 96/63 99 05/14/25 10:30 127 H 27 H 106/71 100 05/14/25 10:15 126 H 31 H 116/74 100 05/14/25 10:00 122 H 23 H 106/65 05/14/25 09:57 124 H 32 H 100/77 100 05/14/25 09:44 126 H 35 H 100/77 100 05/14/25 09:30 126 H 36 H 91/69 98 05/14/25 09:27 125 H 35 H 93/64 98 05/14/25 09:15 117 H 34 H 82/53 L 05/14/25 09:13 118 H 36 H 81/54 L 05/14/25 09:00 114 H 33 H 78/56 L 99 05/14/25 08:50 113 H 31 H 85/57 L 99 05/14/25 08:45 114 H 34 H 83/59 L 99 05/14/25 08:16 120 H 34 H 104/67 98 40 05/14/25 08:04 133 H 27 H 115/79 99 05/14/25 08:00 40 05/14/25 07:45 118 H 25 H 100/75 05/14/25 07:40 121 H 28 H 107/78 97 05/14/25 07:30 115 H 22 H 107/78 100 05/14/25 07:15 114 H 24 H 113/79 99 05/14/25 07:00 114 H 23 H 108/81 99 05/14/25 06:50 115 H 26 H 123/84 100 05/14/25 06:40 117 H 28 H 122/87 99 05/14/25 06:36 115 H 21 H 158/85 H 05/14/25 06:31 114 H 18 158/85 H 74 L 05/14/25 06:21 111 H 18 142/98 H 98 05/14/25 06:10 115 H 22 H 128/98 H 98 05/14/25 06:05 117 H 29 H 135/96 H 98 05/14/25 06:00 118 H 23 H 135/96 H 98 05/14/25 05:51 116 H 27 H 97 05/14/25 05:50 116 H 32 H 134/97 H 99 05/14/25 05:45 114 H 27 H 130/97 H 97 05/14/25 05:40 116 H 27 H 137/98 H 98 05/14/25 05:35 115 H 30 H 140/95 H 98 05/14/25 05:30 113 H 28 H 150/99 H 96 05/14/25 05:28 116 H 30 H 142/102 H 96 05/14/25 05:26 101 H 31 H 160/99 H 97 05/14/25 05:24 112 H 14 161/107 H 98 05/14/25 05:22 101 H 22 H 169/107 H 91 05/14/25 05:21 107 H 0 L 168/102 H 93 05/14/25 05:21 20 05/14/25 05:18 123 H 36 H 151/109 H 97 05/14/25 05:16 118 H 35 H 135/100 H 95 05/14/25 05:14 116 H 37 H 123/111 H 96 05/14/25 05:01 115 H 34 H 148/93 H 94 05/14/25 04:45 120 H 38 H 137/98 H 95 05/14/25 04:30 119 H 43 H 139/97 H 94 05/14/25 04:17 121 H 35 H 139/95 H 94 05/14/25 03:57 2 05/14/25 03:15 99.5 F 126 H 42 H 137/96 H 91 2.0 05/14/25 03:00 97.8 F 122 H 36 H 140/92 H 93 05/14/25 01:34 98.5 F 128 H 40 H 131/96 H 92 2.0 05/13/25 23:43 100.2 F 124 H 24 H 139/95 H 97 05/13/25 23:42 100.2 F 124 H 24 H 139/95 H 97 05/13/25 20:20 98.3 F 128 H 24 H 138/97 H 96 05/13/25 16:18 98.2 F 107 H 18 143/94 H 98 05/13/25 14:10 109 H 142/101 H 97 05/13/25 13:48 109 H 05/13/25 13:17 98.7 F 119 H 26 H 128/96 H 98 Vital Signs (Last Set): Vital Signs - Last Set Temperature 97.1 F L 05/15/25 11:25 Pulse Rate 65 05/15/25 12:30 Respiratory Rate 16 05/15/25 12:30 Blood Pressure 100/75 05/15/25 12:30 Oxygen Saturation% 97 05/15/25 12:30 Liters of Oxygen 2 05/14/25 03:57 FiO2 % Amount 30 05/15/25 12:30 Patient is: Afebrile Intake/Output totals: Intake AND Output Intake Total 1811 1581 Output Total 1010 1230 1315 Balance -1010 581 266 Actual Weight (Kg) 64.5 kg 64.5 kg Intake: IV Intake (ml) 181 1581 Output: Void Output (ml) 125 Indwelling Urinary Catheter 285 1230 615 Output (ml) Gastric Tube Output (ml) 600 700 Other: Weight Measurement Method Built in [facility] General Appearance: Positive On Vent HEENT: Positive Normal Inspection Skin: Positive Warm, Dry Neck: Positive Deferred (intubated on vent) Cardiovascular: Positive Regular Rate and Rhythm Lungs: Positive Decreased Breath Sounds (bilaterally) and Deferred (intubated on vent); Negative Respiratory Distress Abdomen: Positive Soft and Deferred (intubated on vent) Extremities: Positive Deferred (intubated on vent) Neurologic: Positive Moves all extremities and Other (intubated on vent) Psychological: Positive Deferred (intubated on vent) Device: Freeman, NG Tube and Ventilator Lab Results: 05/15/25 06:37 Images available, please contact [facility] Medical Records 05/15/25 01:55 Images available, please contact [facility] Medical Records Laboratory Results - last 24 hr WBC RBC Hgb Hct MCV MCH MCHC RDW Plt Count Neut % (Auto) Lymph % (Auto) Mcdonough % (Auto) Eos % (Auto) Baso % (Auto) Nucleat RBC Rel Count Absolute Neuts (auto) Absolute Lymphs (auto) Absolute Monos (auto) Absolute Eos (auto) Absolute Basos (auto) Anisocytosis Sample Site Central Line Vein Collected by ABG pH ABG pCO2 at Pt Temp ABG pO2 at Pt Temp ABG HCO3 ABG O2 Saturation ABG Base Excess VBG pH 7.47 H 7.46 H VBG pCO2 at Pat Temp 23 L 24 L VBG pO2 at Pat Temp 38 L 44 L VBG HCO3 17.0 L 16.8 L VBG O2 Saturation 77 L 84 L VBG Base Excess -7 L -7 L Respiration Rate 20 20 Patient Equipment Vent Vent Vent Mode AC AC FiO2 0.30 30.00 FiO2 % Tidal Volume 500 500 PEEP 5.0 5.0 Blood Gas Notified By Yes Yes Sodium Potassium Chloride Carbon Dioxide Anion Gap BUN Creatinine GFR Calculation POC Whole Bld Glucose 115 H Random Glucose Fasting Glucose Lactic Acid Calcium Magnesium Triglycerides Slides for Path Review WBC 25.3 H RBC 3.01 L Hgb 9.8 L 10.2 L Hct 28.6 L 29.5 L MCV 97.9 H MCH 33.9 H MCHC 34.6 RDW 19.8 H Plt Count 151 Neut % (Auto) 96.0 H Lymph % (Auto) 1.9 L Mcdonough % (Auto) 1.4 L Eos % (Auto) 0.2 Baso % (Auto) 0.5 Nucleat RBC Rel Count 0.0 Absolute Neuts (auto) 20957 H Absolute Lymphs (auto) 500 L Absolute Monos (auto) 400 Absolute Eos (auto) 0 Absolute Basos (auto) 100 Anisocytosis 1+ Sample Site Collected by ABG pH ABG pCO2 at Pt Temp ABG pO2 at Pt Temp ABG HCO3 ABG O2 Saturation ABG Base Excess VBG pH VBG pCO2 at Pat Temp VBG pO2 at Pat Temp VBG HCO3 VBG O2 Saturation VBG Base Excess Respiration Rate Patient Equipment Vent Mode FiO2 FiO2 % Tidal Volume PEEP Blood Gas Notified By Sodium 141 Potassium 3.9 Chloride 115 H Carbon Dioxide 19 L Anion Gap 7 BUN 21 H Creatinine 0.88 GFR Calculation > 60 POC Whole Bld Glucose 147 H Random Glucose 150 H Fasting Glucose Lactic Acid Calcium 8.00 L Magnesium 2.1 Triglycerides 115 Slides for Path Review WBC 25.4 H RBC 3.00 L Hgb 10.1 L D Hct 29.2 L D MCV 97.3 H MCH 33.5 H MCHC 34.4 RDW 19.6 H Plt Count 150 Neut % (Auto) Lymph % (Auto) Mcdonough % (Auto) Eos % (Auto) Baso % (Auto) Nucleat RBC Rel Count Absolute Neuts (auto) Absolute Lymphs (auto) Absolute Monos (auto) Absolute Eos (auto) Absolute Basos (auto) Anisocytosis Sample Site Central Line Collected by ABG pH ABG pCO2 at Pt Temp ABG pO2 at Pt Temp ABG HCO3 ABG O2 Saturation ABG Base Excess VBG pH 7.43 H VBG pCO2 at Pat Temp 24 L VBG pO2 at Pat Temp 44 L VBG HCO3 16.2 L VBG O2 Saturation 82 L VBG Base Excess -8 L Respiration Rate 20 Patient Equipment Vent Vent Mode AC FiO2 35.00 FiO2 % Tidal Volume 500 PEEP 5.0 Blood Gas Notified By Yes Sodium Potassium Chloride Carbon Dioxide Anion Gap BUN Creatinine GFR Calculation POC Whole Bld Glucose 143 H Random Glucose Fasting Glucose Lactic Acid Calcium Magnesium Triglycerides Slides for Path Review WBC RBC Hgb Hct MCV MCH MCHC RDW Plt Count Neut % (Auto) Lymph % (Auto) Mcdonough % (Auto) Eos % (Auto) Baso % (Auto) Nucleat RBC Rel Count Absolute Neuts (auto) Absolute Lymphs (auto) Absolute Monos (auto) Absolute Eos (auto) Absolute Basos (auto) Anisocytosis Sample Site Central Line Collected by ABG pH ABG pCO2 at Pt Temp ABG pO2 at Pt Temp ABG HCO3 ABG O2 Saturation ABG Base Excess VBG pH 7.40 VBG pCO2 at Pat Temp 26 L VBG pO2 at Pat Temp 42 L VBG HCO3 16.2 L VBG O2 Saturation 79 L VBG Base Excess -9 L Respiration Rate 20 Patient Equipment Vent Vent Mode AC FiO2 0.40 FiO2 % Tidal Volume 500 PEEP 5.0 Blood Gas Notified By Yes Sodium 138 Potassium 4.5 Chloride 113 H Carbon Dioxide 19 L Anion Gap 6 BUN 24 H Creatinine 1.04 GFR Calculation > 60 POC Whole Bld Glucose 152 H Random Glucose Fasting Glucose 139 H Lactic Acid Calcium 7.70 L Magnesium Triglycerides Slides for Path Review WBC RBC Hgb Hct MCV MCH MCHC RDW Plt Count Neut % (Auto) Lymph % (Auto) Mcdonough % (Auto) Eos % (Auto) Baso % (Auto) Nucleat RBC Rel Count Absolute Neuts (auto) Absolute Lymphs (auto) Absolute Monos (auto) Absolute Eos (auto) Absolute Basos (auto) Anisocytosis Sample Site Collected by ABG pH ABG pCO2 at Pt Temp ABG pO2 at Pt Temp ABG HCO3 ABG O2 Saturation ABG Base Excess VBG pH VBG pCO2 at Pat Temp VBG pO2 at Pat Temp VBG HCO3 VBG O2 Saturation VBG Base Excess Respiration Rate Patient Equipment Vent Mode FiO2 FiO2 % Tidal Volume PEEP Blood Gas Notified By Sodium 139 Potassium 3.4 L Chloride 112 H Carbon Dioxide 18 L Anion Gap 9 BUN 24 H Creatinine 1.16 GFR Calculation > 60 POC Whole Bld Glucose Random Glucose 112 H Fasting Glucose Lactic Acid 1.2 2.3 H* Calcium 7.80 L Magnesium 1.9 Triglycerides Slides for Path Review WBC RBC Hgb Hct MCV MCH MCHC RDW Plt Count Neut % (Auto) Lymph % (Auto) Mcdonough % (Auto) Eos % (Auto) Baso % (Auto) Nucleat RBC Rel Count Absolute Neuts (auto) Absolute Lymphs (auto) Absolute Monos (auto) Absolute Eos (auto) Absolute Basos (auto) Anisocytosis Sample Site L Radial Collected by Daryl Gruber ABG pH 7.42 ABG pCO2 at Pt Temp 25 L ABG pO2 at Pt Temp 82 ABG HCO3 16.1 L ABG O2 Saturation 97 ABG Base Excess -8 L VBG pH VBG pCO2 at Pat Temp VBG pO2 at Pat Temp VBG HCO3 VBG O2 Saturation VBG Base Excess Respiration Rate 20 Patient Equipment Vent Vent Mode AC FiO2 FiO2 % 0.40 Tidal Volume 500 PEEP 5.0 Blood Gas Notified By Yes Sodium Potassium Chloride Carbon Dioxide Anion Gap BUN Creatinine GFR Calculation POC Whole Bld Glucose 77 Random Glucose Fasting Glucose Lactic Acid Calcium Magnesium Triglycerides Slides for Path Review * Microbiology 05/14/25 05:30 Sputum - Luki Gram Stain - Final 05/14/25 05:30 Sputum - Luki Sputum Culture - Preliminary Escherichia coli Serratia marcescens 05/13/25 09:16 Urine catheterized Urine Culture - Final No growth after 2 days. 05/13/25 06:54 Blood,Venous Blood Culture - Preliminary No growth after 2 days, cultures held 5 days. 05/13/25 06:44 Blood,Venous Blood Culture - Preliminary No growth after 2 days, cultures held 5 days. 05/14/25 04:06 Perirectal MRSA Screen - Preliminary No growth of MRSA after 1 day. Entered by: Russell Rogers PA-C on 05/15/25 1239 Report Signed by: Russell Rogers PA-C on 05/15/25 1245 <<Signature on File>> < 1048 <<Signature on File>> <Electronically signed by Ember Khanna MD> PROGRESS NOTE SURGICAL Observed: 025 10:26 AM Status: F Source: [facility] Medical Records Patient: DIONNA CONCEPCION [address]. : 1975 [place], [place] [address] Location: ICU [phone] Unit #: [id number] Progress Note Surgical Russell Rogers PA-C Service Dt/Tm: 05/16/25 0810 <Statement entered by Ember Khanna MD - 05/16/25 10:25> I evaluated the patient. Available vitals, labs and images were reviewed. Off levophed, POD 1 ERCP and stone extraction, continues to be intubated, agitated when sedation is decreased per nursing, 2 loose BM this morning, soft abdomen, non distended, unable to assess tenderness due to sedation, on TF KUB non obstructive bowel gas, advance TF as tolerated assess abdominal pain when sedation is decreased, discussed with nurse Platelets dropped 90's from 151, discussed with ICU Eventually he will need a cholecystectomy, likely in an elective outpatient setting Assessment/Plan (1) Transaminitis: Status: Acute (2) Small bowel obstruction: Status: Acute (3) CVA (cerebral vascular accident): Status: Acute Qualifiers: CVA mechanism: unspecified Qualified Code(s): I63.9 - Cerebral infarction, unspecified (4) Wernickes encephalopathy: Status: Acute (5) GI bleed: Status: Acute Qualifiers: GI bleed type/associated pathology: unspecified gastrointestinal hemorrhage type Qualified Code(s): K92.2 - Gastrointestinal hemorrhage, unspecified (6) On mechanically assisted ventilation: Status: Acute (7) Metabolic acidosis: Status: Acute (8) Hypertriglyceridemia: Status: Acute (9) Hypertension: Status: Acute Qualifiers: Hypertension type: primary hypertension Qualified Code(s): I10 - Essential (primary) hypertension (10) Hyperbilirubinemia: Status: Acute (11) Lactic acidosis: Status: Acute (12) Alcoholism: Status: Chronic (13) Chronic pancreatitis: Status: Chronic Qualifiers: Pancreatitis type: alcohol induced Qualified Code(s): K86.0 - Alcohol-induced chronic pancreatitis Plan CC admitting General surgery consulting GI consulting Vitals, labs, imaging, and chart reviewed Tube feeds -having bowel movements Ventilator management per CC Fluids and cares per primary IV Abx -- Unasyn DVT ppx Levo off MRCP 05/14/25 ERCP per GI today 05/15/25 Continue with NG tube and tube feeds KUB this AM Dr. Gwyn Khanna discussed plan with critical care team Will continue to follow Advance Diet: Other (tube feeds) Advance Activity: Bedrest Subjective Date of Service: 05/16/25 Patient Information: DIONNA CONCEPCION is a 49 yr old M who was admitted on 05/12/25 for RT MCA INFARCT/LT SIDED WEAKNESS. Patient expresses concerns: No (intubated) Patient states: Other (intubated); denies Shortness of breath or Chest pain Pain control: Moderately controlled (no apparent distress) CAM Tool Confusion Assessment Method (CAM Tool) 1. Acute onset and fluctuating course Is there evidence of an acute change in mental status from the patient's baseline?: No Did the (abnormal) behavior fluctuate during the day, that is tend to come and go or increase and decrease in severity?: No 2. Inattention Did the patient have difficulty focusing attention, for example, being easily distractible or having difficulty keeping track of what was being said?: No 3. Disorganized Thinking Was the patient???s thinking disorganized or incoherent, such as rambling or irrelevant conversation, unclear or illogical flow of ideas, or unpredictable switching from subject to subject?: No 4. Altered Level Of Consciousness Would you rate the patient's level of consciousness as Vigilant (hyper alert), Lethargic (drowsy, easily aroused), Stupor (difficult to arouse), OR Coma (unarousable)?: No CAM Score Does the patient have a positive CAM score? (Yes to all questions under number 1 and 2, and Yes to question 3 or 4): No Objective Vital Signs Last 48 hours: Vital Signs - 48 hr 05/16/25 07:30 97.3 F L 05/16/25 07:01 43 L 16 92/63 100 30 05/16/25 07:00 44 L 16 100 05/16/25 06:32 93 16 100 05/16/25 06:31 91 16 91/63 100 05/16/25 06:01 48 L 16 95/62 99 05/16/25 06:00 51 L 16 99 05/16/25 05:31 51 L 16 106/73 99 05/16/25 05:01 47 L 16 102/73 98 05/16/25 05:00 46 L 16 98 05/16/25 04:30 45 L 16 107/75 100 05/16/25 04:30 96.8 F L 05/16/25 04:01 86 16 98 05/16/25 04:00 50 L 16 95/70 99 05/16/25 03:56 45 L 16 88/60 L 98 05/16/25 03:30 48 L 16 88/60 L 98 05/16/25 03:01 96 16 100 05/16/25 03:00 46 L 16 88/61 L 100 05/16/25 02:30 64 16 93/64 100 05/16/25 02:01 42 L 16 99 05/16/25 02:00 46 L 16 102/73 99 05/16/25 01:30 44 L 16 98/73 99 05/16/25 01:01 52 L 16 99 05/16/25 01:00 47 L 16 100/75 99 05/16/25 00:30 48 L 16 102/75 99 05/16/25 00:01 86 14 98 05/16/25 00:00 90 16 95/75 98 05/15/25 23:30 74 16 98/72 99 05/15/25 23:24 43 L 16 106/79 98 05/15/25 23:00 96 16 106/79 100 05/15/25 22:30 95 16 96/73 99 05/15/25 22:01 50 L 16 98 05/15/25 22:00 104 H 16 95/75 98 05/15/25 21:30 55 L 16 110/79 99 05/15/25 21:21 97.3 F L 05/15/25 21:01 53 L 16 100 05/15/25 21:00 59 L 16 113/81 100 05/15/25 21:00 30 05/15/25 20:30 55 L 16 119/83 100 05/15/25 20:01 59 L 17 100 05/15/25 20:00 55 L 16 115/87 100 05/15/25 19:58 59 L 16 122/84 100 05/15/25 19:30 59 L 16 122/84 99 30 05/15/25 19:01 59 L 16 97 30 05/15/25 19:00 59 L 16 115/78 97 05/15/25 18:30 63 16 121/85 99 05/15/25 18:01 65 16 99 30 05/15/25 18:00 70 16 118/84 99 05/15/25 17:50 72 16 98 05/15/25 17:48 73 16 104/77 98 05/15/25 17:46 78 15 100 05/15/25 17:45 71 103/73 100 05/15/25 16:54 64 23 H 100 05/15/25 16:53 59 L 14 112/82 100 30 05/15/25 16:48 59 L 16 100 30 05/15/25 16:32 57 L 16 98 05/15/25 16:31 56 L 16 112/82 100 05/15/25 16:01 62 16 111/83 98 05/15/25 16:00 62 16 98 05/15/25 15:31 65 16 107/80 98 05/15/25 15:20 97.1 F L 05/15/25 15:02 64 16 98 05/15/25 15:02 64 16 109/81 98 05/15/25 15:01 65 16 109/81 99 05/15/25 15:00 63 16 99 05/15/25 14:47 57 L 16 98 05/15/25 14:46 64 16 111/80 98 30 05/15/25 14:41 60 16 108/81 99 05/15/25 14:30 64 16 108/81 99 05/15/25 14:15 65 16 111/84 98 05/15/25 14:01 65 16 98 05/15/25 14:00 63 16 109/84 98 05/15/25 13:45 63 16 108/81 98 05/15/25 13:30 64 16 102/79 98 05/15/25 13:16 66 16 98 05/15/25 13:15 66 16 112/82 98 30 05/15/25 13:01 61 16 96 05/15/25 13:00 63 16 101/75 96 05/15/25 12:46 63 16 97 05/15/25 12:45 63 16 104/75 97 30 05/15/25 12:31 65 16 97 05/15/25 12:30 65 16 100/75 97 30 05/15/25 12:15 65 16 101/75 98 05/15/25 12:01 68 16 98 30 05/15/25 12:00 67 16 105/76 98 05/15/25 11:45 68 16 102/76 99 05/15/25 11:30 69 16 109/74 100 05/15/25 11:25 97.1 F L 05/15/25 11:15 68 14 104/76 99 05/15/25 11:01 72 16 98 05/15/25 11:00 70 16 105/81 98 05/15/25 10:47 72 16 109/78 98 05/15/25 10:46 72 20 98 05/15/25 10:45 72 20 109/78 98 30 05/15/25 10:30 75 20 107/83 99 05/15/25 10:28 72 20 113/82 99 05/15/25 10:16 71 20 99 05/15/25 10:15 70 20 112/83 99 30 05/15/25 10:08 70 20 120/87 99 05/15/25 10:01 73 20 98 05/15/25 10:00 75 20 120/87 98 05/15/25 09:45 76 20 119/89 98 05/15/25 09:31 73 20 98 05/15/25 09:30 72 20 124/76 98 30 05/15/25 09:15 76 20 117/86 98 05/15/25 09:07 80 20 98 05/15/25 09:06 74 20 125/86 98 30 05/15/25 09:01 75 20 100 05/15/25 09:00 73 20 127/87 100 05/15/25 08:50 30 05/15/25 08:31 97.5 F L 71 20 99 30 05/15/25 08:30 68 20 119/78 99 05/15/25 08:16 70 20 99 05/15/25 08:15 70 20 123/82 99 05/15/25 08:01 70 20 98 05/15/25 08:00 72 20 120/79 99 05/15/25 07:53 71 20 122/79 99 05/15/25 07:46 72 20 99 05/15/25 07:45 72 20 122/79 99 05/15/25 07:31 69 20 99 05/15/25 07:30 71 20 120/80 99 05/15/25 07:16 62 20 99 05/15/25 07:15 63 20 118/74 99 05/15/25 07:00 71 20 120/79 99 05/15/25 06:45 68 20 118/77 99 05/15/25 06:30 71 20 115/75 99 05/15/25 06:15 75 20 116/79 99 05/15/25 06:00 70 20 115/76 100 05/15/25 05:45 74 20 118/81 99 05/15/25 05:30 72 20 123/81 99 05/15/25 05:15 72 20 119/82 99 05/15/25 05:00 68 19 117/73 99 05/15/25 04:45 73 20 122/78 99 05/15/25 04:30 61 20 123/77 100 05/15/25 04:15 68 20 121/77 100 05/15/25 04:06 68 20 123/82 100 05/15/25 04:00 97.6 F 73 20 123/82 99 30 05/15/25 04:00 30 05/15/25 03:45 72 20 118/79 99 05/15/25 03:30 73 20 121/81 99 05/15/25 03:15 74 20 118/80 99 05/15/25 03:00 73 20 115/76 100 05/15/25 02:45 67 20 106/76 99 05/15/25 02:30 74 20 115/78 99 05/15/25 02:15 73 20 119/78 99 05/15/25 02:00 73 20 122/80 99 05/15/25 01:45 71 20 125/78 99 05/15/25 01:30 71 20 125/84 100 05/15/25 01:15 64 20 116/78 99 05/15/25 01:00 76 20 127/85 99 05/15/25 00:45 73 20 124/83 99 05/15/25 00:30 77 20 125/84 99 05/15/25 00:15 79 20 120/83 99 05/15/25 00:01 76 20 99 05/15/25 00:00 30 05/15/25 00:00 97.6 F 80 19 120/90 98 30 05/14/25 23:45 68 20 118/79 100 05/14/25 23:30 69 20 119/80 99 05/14/25 23:15 68 20 119/79 99 05/14/25 23:00 72 20 117/78 99 05/14/25 22:50 71 20 116/79 99 05/14/25 22:45 72 20 116/79 99 05/14/25 22:30 72 20 116/77 100 05/14/25 22:18 64 20 110/70 100 05/14/25 21:45 72 20 104/76 99 05/14/25 21:30 74 20 103/72 99 05/14/25 21:15 71 20 102/70 100 05/14/25 21:00 65 20 102/73 100 05/14/25 20:45 66 20 102/75 100 05/14/25 20:30 68 20 104/73 100 05/14/25 20:15 67 20 99/73 100 05/14/25 20:00 40 05/14/25 20:00 66 20 98/67 100 05/14/25 19:51 67 98/69 99 05/14/25 19:45 69 20 98/69 100 05/14/25 19:30 64 20 90/64 99 05/14/25 19:15 71 20 97/71 99 05/14/25 19:00 97.6 F 72 20 94/71 99 40 05/14/25 18:45 75 20 93/70 99 05/14/25 18:30 76 20 90/67 99 05/14/25 18:15 78 20 89/64 L 99 05/14/25 18:00 75 20 84/64 L 99 05/14/25 17:45 81 20 84/64 L 99 05/14/25 17:30 85 20 88/67 L 99 05/14/25 17:15 81 20 93/68 99 05/14/25 17:01 74 20 104/76 99 05/14/25 17:00 76 20 99 05/14/25 16:54 71 20 116/79 99 05/14/25 16:45 73 20 117/73 100 05/14/25 16:30 74 20 118/73 99 05/14/25 16:30 97.0 F L 05/14/25 16:15 75 20 111/72 99 05/14/25 16:00 72 20 108/70 99 05/14/25 15:45 78 20 103/70 99 05/14/25 15:30 80 20 102/71 99 05/14/25 15:15 84 20 95/67 99 05/14/25 15:00 86 20 97/71 99 05/14/25 14:45 88 20 92/67 99 05/14/25 14:42 88 18 97/70 99 05/14/25 14:30 95 20 97/70 98 05/14/25 14:24 97 22 H 96/68 98 05/14/25 14:15 98 20 96/69 98 40 05/14/25 14:00 102 H 20 91/65 97 05/14/25 13:45 109 H 20 90/59 L 97 05/14/25 13:30 113 H 20 86/58 L 97 05/14/25 13:26 114 H 21 H 83/60 L 97 05/14/25 13:15 115 H 20 85/60 L 97 05/14/25 13:09 116 H 20 82/59 L 97 05/14/25 13:00 118 H 20 79/56 L 97 05/14/25 12:45 118 H 20 76/53 L 96 05/14/25 12:31 119 H 20 77/52 L 96 05/14/25 12:29 118 H 20 79/57 L 96 05/14/25 12:23 121 H 20 84/63 L 98 05/14/25 12:19 124 H 21 H 84/63 L 99 05/14/25 11:39 101.7 F H 05/14/25 11:10 123 H 21 H 91/62 100 05/14/25 11:00 125 H 25 H 91/62 99 05/14/25 10:45 125 H 27 H 96/63 99 05/14/25 10:30 127 H 27 H 106/71 100 05/14/25 10:15 126 H 31 H 116/74 100 05/14/25 10:00 122 H 23 H 106/65 05/14/25 09:57 124 H 32 H 100/77 100 05/14/25 09:44 126 H 35 H 100/77 100 05/14/25 09:30 126 H 36 H 91/69 98 05/14/25 09:27 125 H 35 H 93/64 98 05/14/25 09:15 117 H 34 H 82/53 L 05/14/25 09:13 118 H 36 H 81/54 L 05/14/25 09:00 114 H 33 H 78/56 L 99 05/14/25 08:50 113 H 31 H 85/57 L 99 05/14/25 08:45 114 H 34 H 83/59 L 99 05/14/25 08:16 120 H 34 H 104/67 98 40 Vital Signs (Last Set): Vital Signs - Last Set Temperature 97.3 F L 05/16/25 07:30 Pulse Rate 43 L 05/16/25 07:01 Respiratory Rate 16 05/16/25 07:01 Blood Pressure 92/63 05/16/25 07:01 Oxygen Saturation% 100 05/16/25 07:01 Liters of Oxygen 2 05/14/25 03:57 FiO2 % Amount 30 05/16/25 07:01 Patient is: Afebrile Intake/Output totals: Intake AND Output Intake Total 788 1074 Output Total 250 155 Balance 538 919 Actual Weight (Kg) 66.5 kg Intake: IV Intake (ml) 734 852 Tube Feeding Intake (ml) 54 222 Output: Indwelling Urinary Catheter 250 155 Output (ml) Other: Weight Measurement Method Built in [facility] Amount of Stools Medium Stool Color Brown Stool Consistency Loose General Appearance: Positive On Vent HEENT: Positive Normal Inspection Skin: Positive Warm, Dry Neck: Positive Deferred (on vent) Cardiovascular: Positive Regular Rate and Rhythm Lungs: Positive Decreased Breath Sounds (bilat) and Deferred (on vent); Negative Respiratory Distress Abdomen: Positive Soft, Bowel Sounds, BM and Flatus; Negative Tender to palpation Extremities: Positive Warm and Dry and Deferred (on vent); Negative Edema Neurologic: Positive Deferred (on vent) Psychological: Positive Deferred (on vent) Device: Freeman, NG Tube and Ventilator Lab Results: 05/16/25 03:53 Images available, please contact [facility] Medical Records 05/16/25 04:00 Images available, please contact [facility] Medical Records Laboratory Results - last 24 hr WBC 9.5 RBC 2.62 L Hgb 8.8 L Hct 25.8 L MCV 98.3 H MCH 33.5 H MCHC 34.1 RDW 19.5 H Plt Count 91 L Sample Site VBG pH VBG pCO2 at Pat Temp VBG pO2 at Pat Temp VBG HCO3 VBG O2 Saturation VBG Base Excess Respiration Rate Patient Equipment Vent Mode FiO2 Tidal Volume PEEP Blood Gas Notified By Sodium 143 Potassium 3.5 L Chloride 116 H Carbon Dioxide 19 L Anion Gap 8 BUN 26 H Creatinine 0.73 GFR Calculation > 60 POC Whole Bld Glucose 113 H Random Glucose 119 H Calcium 7.80 L Ionized Calcium 1.15 Magnesium 2.0 Total Bilirubin 2.1 H D AST 96 H ALT 121 H Alkaline Phosphatase 225 H Total Protein 4.8 L D Albumin 2.5 L D Albumin/Globulin Ratio 1.1 L Slides for Path Review WBC RBC Hgb Hct MCV MCH MCHC RDW Plt Count Sample Site VBG pH VBG pCO2 at Pat Temp VBG pO2 at Pat Temp VBG HCO3 VBG O2 Saturation VBG Base Excess Respiration Rate Patient Equipment Vent Mode FiO2 Tidal Volume PEEP Blood Gas Notified By Sodium Potassium Chloride Carbon Dioxide Anion Gap BUN Creatinine GFR Calculation POC Whole Bld Glucose 129 H 122 H 115 H Random Glucose Calcium Ionized Calcium Magnesium Total Bilirubin AST ALT Alkaline Phosphatase Total Protein Albumin Albumin/Globulin Ratio Slides for Path Review WBC RBC Hgb Hct MCV MCH MCHC RDW Plt Count Sample Site Central Line VBG pH 7.47 H VBG pCO2 at Pat Temp 23 L VBG pO2 at Pat Temp 38 L VBG HCO3 17.0 L VBG O2 Saturation 77 L VBG Base Excess -7 L Respiration Rate 20 Patient Equipment Vent Vent Mode AC FiO2 0.30 Tidal Volume 500 PEEP 5.0 Blood Gas Notified By Yes Sodium Potassium Chloride Carbon Dioxide Anion Gap BUN Creatinine GFR Calculation POC Whole Bld Glucose Random Glucose Calcium Ionized Calcium Magnesium Total Bilirubin AST ALT Alkaline Phosphatase Total Protein Albumin Albumin/Globulin Ratio Slides for Path Review * Microbiology 05/14/25 05:30 Sputum - Luki Gram Stain - Final 05/14/25 05:30 Sputum - Luki Sputum Culture - Preliminary Escherichia coli Serratia marcescens 05/14/25 04:06 Perirectal MRSA Screen - Preliminary No growth of MRSA after 1 day. 05/13/25 06:54 Blood,Venous Blood Culture - Preliminary No growth after 3 days, cultures held 5 days. 05/13/25 06:44 Blood,Venous Blood Culture - Preliminary No growth after 3 days, cultures held 5 days. 05/16/25 05:40 Stool/feces Stool Occult Blood (DEIDRA) - Final 05/13/25 09:16 Urine catheterized Urine Culture - Final No growth after 2 days. Entered by: Russell Rogers PA-C on 05/16/25 0810 Report Signed by: Russell Rogers PA-C on 05/16/25 0813 <<Signature on File>> < 1026 <<Signature on File>> <Electronically signed by Ember Khanna MD> XR ABDOMEN 1 VIEW KUB Observed: 05/16/20 8:11 AM Status: F Source: [facility] Radiology Department Patient: DIONNA CONCEPCION [address]. : 1975 Sex: [place] [address] Location: [facility] [phone] Unit #: [id number] Ordering Phys: Russell Rogers PA-C Exam Date: 05/16/25 Exam: MAIN XR Abdomen 1 View KUB Result: See Report STUDY: X-RAY - ABDOMEN/PELVIS REASON FOR EXAM: Male, 49 years old. Abdominal pain and distention TECHNIQUE: Single AP view of the abdomen / pelvis. COMPARISON: None. FINDINGS: Enteric tube extends to the gastric body. No dilated small bowel. Colonic gas is confirmed. No obvious pneumoperitoneum (limited evaluation on supine exam). The visualized liver, spleen and kidneys are grossly normal in size and morphology. Normal soft tissue structures. Normal visualized osseous structures. IMPRESSION: Nonobstructive bowel gas pattern. cc: Russell Rogers PA-C; Tay Camara MD Dictated by: Nathan Epstein MD on 05/16/25899 Transcribed by: Nathan Epstein on 05/16/25899 Report Signed by: Nathan Epstein MD on 05/16/25899 METER GLUCOSE Collected: 6:09 AM Status: F Source: [facility] TYPE CODE TESTS RESULT OUT OF RANGE REFERENCE UNITS LAB L702.1000 Meter Glucose 113 High 70-110 mg/dl Performed By: #### L702.1000 #### Main Laboratory ([facility]) [address] [place] [address] Regan Sahni MD OCCULT BLOOD, DIAG (IFOBT) Observed: 09/2025 5:40 AM Status: F Source: [facility] Result Positive Performed By: #### M400.1015 #### Main Laboratory ([facility]) [address] [place] [address] Regan Sahni MD COMPREHENSIVE METABOLIC PANEL Collected: 05/16/2025 4 :00 AM Status: F Source: [facility] TYPE CODE TESTS RESULT OUT OF RANGE REFERENCE UNITS LAB L400.1400 Sodium 143 Normal 135-145 mEq/L LAB L400.1500 Potassium 3.5 Low 3.6-5.0 mEq/L LAB L400.1600 Chloride 116 High 101-111 mEq/L LAB L400.1700 Carbon Dioxide 19 Low 21-32 mEq/L LAB L400.1800 Anion Gap 8 Normal 4-12 LAB L400.1820 Glucose 119 High 70-110 mg/dL LAB L400.1835 BUN 26 High 7-20 mg/dL LAB L400.1840 Creatinine 0.73 Normal 0.60-1.30 mg/dL LAB L400.1845 GFR Calculation > 60 Normal Result Comment: Chronic Kidn ey Disease stages by NKDF Stage eGFR I >90 II 60-89 III 30-59 IV 15-29 V <15 or dialysis Note: Information regarding the eGFR equation used can be found at https://www.kidney.org/fzjp-vfzhr-[email or web address]. AGE(years) AVERAGE GFR 50-59 93 ml/min/1.73 square meters Note:This result is normalized to 1.73 square meter body surface area. Height and weight are not factored. LAB L400.1900 AST/SGOT 96 High 15-41 IU/L LAB L400.1950 Alk Phos 225 High 41-137 IU/L LAB L400.2000 Bili,Total 2.1 High 0.2-1.0 mg/dL Result Comment: Delta: 5.2 o n 05/14/25-239 LAB L400.2100 Calcium 7.80 Low 8.8-10.5 mg/dL LAB L400.2120 Albumin 2.5 Low 3.5-5.0 g/dL Result Comment: Delta: 3.4 o n 05/14/25-239 LAB L400.2140 Total Protein 4.8 Low 6.2-8.0 g/dL Result Comment: Delta: 6.4 o n 05/14/25-239 LAB L400.2160 Alb/Glob Ratio 1.1 Low 1.5-2.5 LAB L400.4400 ALT/SGPT 121 High 10-40 IU/L Performed By: #### L400.5100 , L400.0076 #### Main Laboratory ([facility]) [address] [place] [address] Regan Sahni MD MAGNESIUM Collected: 5 4:00 AM Status: F Source: [facility] TYPE CODE TESTS RESULT OUT OF RANGE REFERENCE UNITS LAB L400.5100 Magnesium 2.0 Normal 1.8-2.5 mg/dL Performed By: #### L400.5100 , L400.0076 #### Main Laboratory ([facility]) [address] [place] [address] Regan Sahni MD IONIZED CALCIUM Collected: 5 3:53 AM Status: F Source: [facility] TYPE CODE TESTS RESULT OUT OF RANGE REFERENCE UNITS LAB L400.0049 Ionized Calcium 1.15 Normal 1.15-1.29 mmol/L Performed By: #### L400.0049 #### Main Laboratory ([facility]) [address] [place], [place] [address] [place] [place] [address] Regan Sahni MD CBC WITHOUT DIFFERENTIAL Collected: 09/2025 3:53 AM Status: F Source: [facility] TYPE CODE TESTS RESULT OUT OF RANGE REFERENCE UNITS LAB L100.0100 WBC 9.5 Normal 4.4-10.5 th/cmm LAB L100.0300 RBC 2.62 Low 4.50-6.00 mil/cmm LAB L100.0400 Hemoglobin 8.8 Low 13.5-16.5 gm/dL LAB L100.0500 Hematocrit 25.8 Low 40.0-49.0 % LAB L100.0600 MCV 98.3 High 80-97 CU DEIDRA LAB L100.0700 MCH 33.5 High 27.5-33.0 PG LAB L100.0800 MCHC 34.1 Normal 33.0-36.0 gm/dL LAB L100.0900 RDW 19.5 High 12.0-16.0 % LAB L100.1000 Platelet Count 91 Low 150-400 th/cmm Performed By: #### L100.0050 #### Main Laboratory ([facility]) [address] [place], [place] [address] [place] [address] Regan Sahni MD METER GLUCOSE Collected: 11:47 PM Status: F Source: [facility] TYPE CODE TESTS RESULT OUT OF RANGE REFERENCE UNITS LAB L702.1000 Meter Glucose 129 High 70-110 mg/dl Performed By: #### L702.1000 #### Main Laboratory ([facility]) [address] [place], [place] [address] [place] [address] Regan Sahni MD METER GLUCOSE Collected: 6:04 PM Status: F Source: [facility] TYPE CODE TESTS RESULT OUT OF RANGE REFERENCE UNITS LAB L702.1000 Meter Glucose 122 High 70-110 mg/dl Performed By: #### L702.1000 #### Main Laboratory ([facility]) [address] [place] [address] Regan Sahni MD XR ERCP Observed: 05/15/2025 5:43 PM Status: F Source: [facility] Radiology Department Patient: DIONNA CONCEPCION [address]. : 1975 Sex: Mirta Huron [place] [address] Location: ICU [phone] Unit #: [id number] Ordering Phys: Chris Velasquez MD Exam Date: 05/15/25 Exam: MAIN XR ERCP Result: See Report PROCEDURE: FLUOROSCOPIC GUIDANCE FOR ERCP DATE OF EXAMINATION: 05/16/2025 INDICATION: Male, 49 years old. ERCP FILM Dose area product: 7.8 Gycm2 TECHNIQUE: Fluoroscopy was provided for ERCP procedure. Several digital spot images were obtained. Initial images demonstrate introduction of a guidewire into the common bile duct in a retrograde fashion with subsequent injection of contrast. Contrast is seen to opacify the common bile duct, as well as the intrahepatic biliary radicals. Filling defects in the lower common duct correlate to choledocholithiasis seen on prior MRCP. Subsequent passage of a procedural balloon, then retracted. IMPRESSION: Lower choledocholithiasis. Guidance for ERCP/balloon extraction/sphincterotomy. Please see procedural report. cc: Tay Camara MD; Chris Velasquez MD Dictated by: Nathan Epstein MD on 05/16/25913 Transcribed by: Nathan Epstein on 05/16/25914 Report Signed by: Nathan Epstein MD on 05/16/25914 PROCEDURE NOTE - SURGICAL Observed: 05/06 5:38 PM Status: F Source: [facility] Medical Records Patient: DIONNA CONCEPCION [address] : 1975 [place], [place] [address] Location: ICU [phone] Unit #: [id number] Procedure Note - Surgical Chris Velasquez MD Service Dt/Tm: 05/15/25 173 Diagnosis Date of Procedure: 05/15/25 Pre-Procedure Diagnosis: Choledocholithiasis cholangitis Post Procedure Diagnosis: Same (Ampulla inside the diverticulum, bile duct stone status post sphincterotomy stones extraction with the balloon) - Performing Surgeon/Provider: Chris Velasquez MD Was Dyer Helper(s) Used: No Procedure Performed: ERCP Colonoscopy Core Measures Bowel prep taken as intended and appropriate for procedure?: No Was the procedure a screening colonoscopy?: No Did you Perform a Biopsy or Polypectomy?: No Did a perforation occur?: No 10 Year Follow-up Recommended?: No Reason for not recommending a 10 year follow up: ERCP Procedure Findings: Post Op Diagnosis Confirmed Type of Anesthesia Used: General Estimated Blood Loss: None Disposition of Specimen: No Specimen Complications: None Disposition after Procedure: PACU Entered by: Chris Velasquez MD on 05/15/251735 Report Signed by: Chris Velasquez MD on 05/15/251737 <<Signature on File>> <Electronically signed by Chris Velasquez MD> Report Signed by: on CONSULTATION Observed: 05/15/2025 5:02 PM Status: F Source: [facility] Medical Records Patient: DIONNA CONCEPCION [address] : 1975 [place], [place] [address] Location: ICU [phone] Unit #: [id number] Consultation Chris Velasquez MD Service Date: 05/15/25 History of Present Illness Date of Consultation: 05/15/25 Time Seen: 16:59 Reason for Consultation: Obstructive jaundice choledocholithiasis History of Present Illness: DIONNA CONCEPCION is a 49 yr old M who was admitted on 05/12/25 for RT MCA INFARCT/LT SIDED WEAKNESS. 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 Past Surgical History Surgical History S/P rotator cuff repair Social History Caffeine Amount: 1-2/Day Current Type of Alcohol: Beer Current Alcohol Amount: Socially/Occasionally Smoking Status: Heavy tobacco smoker Type of Tobacco: Cigarettes Smoking Amount: 1 pack per day Family History Other No pertinent family history Review of Systems Unable to do a review of systems due to: Patient on ventilator ENT: Negative Respiratory: Negative Cardiovascular: Negative Genitourinary: Negative Musculoskeletal: Negative Skin: Jaundice Neurological: Other Physical Exam Last Vital Signs Temp Pulse Resp BP Pulse Ox O2 Flow RateFiO2 97.1 F L 59 L 16 112/82 100 2 30 05/15/25 15:05/15/25 16:05/15/25 16:05/15/25 16:05/15/25 16:05/14/25 03:05/15/25 16: 20 48 48 31 48 57 48 Height (Ft AND In) 5 ft 7 in Admitting (IV Pump) Weight 61.4 kg Actual Weight (Kg) 64.5 kg General Appearance: On Vent Cardiovascular: Regular Rate and Rhythm Left Lung: Throughout: Clear Right Lung: Throughout: Clear Lungs: Good Air Entry Abdomen: Soft and Tender to palpation Extremities: Activity as expected Neurologic: Grossly Intact and A AND O x3 Psychological: Mood AND Affect Normal Laboratory Last Values WBC 25.3 th/cmm (4.4-10.5) H 05/15/25 01:55 RBC 3.01 mil/cmm (4.50-6.00) L 05/15/25 01:55 Hgb 9.8 gm/dL (13.5-16.5) L 05/15/25 06:37 Hct 28.6 % (40.0-49.0) L 05/15/25 06:37 MCV 97.9 CU DEIDRA (80-97) H 05/15/25 01:55 MCH 33.9 PG (27.5-33.0) H 05/15/25 01:55 MCHC 34.6 gm/dL (33.0-36.0) 05/15/25 01:55 RDW 19.8 % (12.0-16.0) H 05/15/25 01:55 Plt Count 151 th/cmm (150-400) 05/15/25 01:55 Neut % (Auto) 96.0 % (40-70) H 05/15/25 01:55 Lymph % (Auto) 1.9 % (15-45) L 05/15/25 01:55 Mcdonough % (Auto) 1.4 % (2-10) L 05/15/25 01:55 Eos % (Auto) 0.2 % (0-6) 05/15/25 01:55 Baso % (Auto) 0.5 % (0-2) 05/15/25 01:55 Nucleat RBC Rel Count 0.0 /100 WBC (<1) 05/15/25 01:55 Absolute Neuts (auto) 61130 /cmm (9211-7462) H 05/15/25 01:55 Absolute Lymphs (auto) 500 /cmm (8040-8701) L 05/15/25 01:55 Absolute Monos (auto) 400 /cmm (0-800) 05/15/25 01:55 Absolute Eos (auto) 0 /cmm (0-500) 05/15/25 01:55 Absolute Basos (auto) 100 /cmm (0-200) 05/15/25 01:55 Neutrophils % (Manual) 90.0 % (40-70) H 05/14/25 02:40 Band Neutrophils % 5.0 % (2-6) 05/14/25 02:40 Lymphocytes % (Manual) 1.0 % (15-45) L 05/14/25 02:40 Monocytes % (Manual) 3.0 % (2-10) 05/14/25 02:40 Metamyelocytes % 1.0 % 05/14/25 02:40 Abs Neuts (Manual) 20013 /cmm (8443-7146) H 05/14/25 02:40 Abs Lymphs (Manual) 364 /cmm (6368-3547) L 05/14/25 02:40 Abs Monocytes (Manual) 1092 /cmm (0-800) H 05/14/25 02:40 Absolute Eos (Manual) 0 /cmm (0-500) 05/14/25 02:40 Abs Basophils (Manual) 0 /cmm (0-200) 05/14/25 02:40 Nucleated RBCs # 1 /100 WBC 05/13/25 04:55 Anisocytosis 1+ 05/15/25 01:55 RBC Morph Comment Test not indicated 05/14/25 02:40 PT 11.6 Sec (9.6-13.3) 05/11/25 15:14 INR 0.98 (0.9-1.2) 05/11/25 15:14 Sample Site Central Line 05/15/25 10:43 Collected by Daryl Gruber 05/14/25 12:54 ABG pH 7.42 (7.35-7.45) 05/14/25 12:54 ABG pCO2 at Pt Temp 25 mmHg (35-45) L 05/14/25 12:54 ABG pO2 at Pt Temp 82 mmHg (80-105) 05/14/25 12:54 ABG HCO3 16.1 mmol/L (22-26) L 05/14/25 12:54 ABG O2 Saturation 97 % (95-98) 05/14/25 12:54 ABG Base Excess -8 mmol/L (-2-3) L 05/14/25 12:54 VBG pH 7.47 (7.31-7.41) H 05/15/25 10:43 VBG pCO2 at Pat Temp 23 mmHg (41-51) L 05/15/25 10:43 VBG pO2 at Pat Temp 38 mmHg (80-105) L 05/15/25 10:43 VBG HCO3 17.0 mmol/L (23.0-28.0) L 05/15/25 10:43 VBG O2 Saturation 77 % (95-98) L 05/15/25 10:43 VBG Base Excess -7 mmol/L (-2-3) L 05/15/25 10:43 Respiration Rate 20 05/15/25 10:43 Patient Equipment Vent 05/15/25 10:43 Vent Mode AC 05/15/25 10:43 FiO2 0.30 05/15/25 10:43 FiO2 % 0.40 05/14/25 12:54 Tidal Volume 500 05/15/25 10:43 PEEP 5.0 05/15/25 10:43 Blood Gas Notified By Yes 05/15/25 10:43 Sodium 141 mEq/L (135-145) 05/15/25 01:55 Potassium 3.9 mEq/L (3.6-5.0) 05/15/25 01:55 Chloride 115 mEq/L (101-111) H 05/15/25 01:55 Carbon Dioxide 19 mEq/L (21-32) L 05/15/25 01:55 Anion Gap 7 (4-12) 05/15/25 01:55 BUN 21 mg/dL (7-20) H 05/15/25 01:55 Creatinine 0.88 mg/dL (0.60-1.30) 05/15/25 01:55 GFR Calculation > 60 (60-) 05/15/25 01:55 POC Whole Bld Glucose 115 mg/dl (70-110) H 05/15/25 11:25 Random Glucose 150 mg/dL (70-110) H 05/15/25 01:55 Fasting Glucose 139 mg/dL (70-110) H 05/14/25 21:42 Hemoglobin A1c 5.0 % (4.4-6.4) 05/11/25 20:10 Estim Average Glucose 97 mg/dL 05/11/25 20:10 Lactic Acid 1.2 mmol/L (0.5-2.0) 05/14/25 16:51 Calcium 8.00 mg/dL (8.8-10.5) L 05/15/25 01:55 Magnesium 2.1 mg/dL (1.8-2.5) 05/15/25 01:55 Total Bilirubin 5.2 mg/dL (0.2-1.0) H D 05/14/25 02:40 Direct Bilirubin 3.6 mg/dL (0.1-0.2) H 05/14/25 02:40 AST 313 IU/L (15-41) H D 05/14/25 02:40 ALT 308 IU/L (10-40) H D 05/14/25 02:40 Alkaline Phosphatase 347 IU/L (41-137) H D 05/14/25 02:40 Troponin I High Sens 6 ng/L (0-20) 05/11/25 15:14 Total Protein 6.4 g/dL (6.2-8.0) 05/14/25 02:40 Albumin 3.4 g/dL (3.5-5.0) L D 05/14/25 02:40 Albumin/Globulin Ratio 1.5 (1.5-2.5) 05/11/25 15:14 Prealbumin 15.0 mg/dL (16.0-38.0) L 05/13/25 04:54 Triglycerides 115 mg/dL (<150) 05/15/25 01:55 Cholesterol 238 mg/dL (<200) H 05/11/25 20:10 LDL Cholesterol Direct 171 mg/dL (-100) H 05/11/25 20:10 VLDL Cholesterol, Calc 32 mg/dL (<39) 05/11/25 20:10 HDL Cholesterol 34 mg/dL (40-) L 05/11/25 20:10 LDL/HDL Ratio 5.0 (<3.1) H 05/11/25 20:10 Cholesterol/HDL Ratio 7.0 (4.0-5.0) H 05/11/25 20:10 Amylase 17 U/L (30-100) L 05/13/25 04:54 Lipase 40 IU/L (21-51) 05/13/25 04:54 Procalcitonin 0.25 ng/mL (-0.50) 05/13/25 04:54 TSH 1.879 mcIU/mL (0.490-4.670) 05/11/25 20:10 Urine Color Yellow 05/13/25 09:16 Urine Appearance Cloudy 05/13/25 09:16 Urine pH 7.0 (5.0-8.0) 05/13/25 09:16 Ur Specific [place] 1.021 (1.000-1.035) 05/13/25 09:16 Urine Protein 20 mg/dl (Negative) 05/13/25 09:16 Urine Glucose (UA) 30 mg/dL (Negative) 05/13/25 09:16 Urine Ketones Negative (Negative) 07/08/25 09:16 Urine Blood >1.0 mg/dl (Negative) 05/13/25 09:16 Urine Nitrite Negative (Negative) 05/13/25 09:16 Urine Bilirubin 2 mg/dL (Negative) 05/13/25 09:16 Urine Urobilinogen >10.0 mg/dl (0.2-1.0) 05/13/25 09:16 Ur Leukocyte Esterase 75 Pati/uL (Negative) 05/13/25 09:16 U Hyaline Cast (Auto) 3-5 /LPF H 05/13/25 09:16 Urine RBC >100 /HPF H 05/13/25 09:16 Ur WBC Total Counted 21-50 /HPF H 05/13/25 09:16 Ur Squamous Epith Cells None /HPF 05/13/25 09:16 Ur Renal Epithelial Cell 0-5 /HPF 05/13/25 09:16 Urine Mucus (Auto) Present 05/13/25 09:16 Ur Culture Indicated? Yes 05/13/25 09:16 Fecal Screen VRE (PCR) Negative (Negative) 05/14/25 04:06 Urine Opiates Screen Negative (Negative) 05/13/25 09:16 Ur Oxycodone Screen Negative (Negative) 05/13/25 09:16 Ur Barbiturates Screen Negative (Negative) 05/13/25 09:16 Ur Phencyclidine Scrn Negative (Negative) 05/13/25 09:16 Ur Amphetamines Screen Negative (Negative) 05/13/25 09:16 U Benzodiazepines Scrn Negative (Negative) 05/13/25 09:16 Urine Cocaine Screen Negative (Negative) 05/13/25 09:16 U Cannabinoids Screen Positive (Negative) H 05/13/25 09:16 Drug Screen Comment 05/13/25 09:16 Alcohol, Quantitative < 0.010 gm/dL 05/11/25 15:14 Specimen Source Nasopharyngeal Swab 05/12/25 20:50 Adenovirus (PCR) Not Detected 05/12/25 20:50 B. pertussis DNA (PCR) Not Detected 05/12/25 20:50 B.parapertussis DNA PCR Not Detected 05/12/25 20:50 C. pneumoniae DNA (PCR) Not Detected 05/12/25 20:50 Coronavirus OC43 (PCR) Not Detected 05/12/25 20:50 Coronavirus HKU1 (PCR) Not Detected 05/12/25 20:50 Coronavirus 229E (PCR) Not Detected 05/12/25 20:50 Coronavirus NL63 (PCR) Not Detected 05/12/25 20:50 Human Metapneumovir PCR Not Detected 05/12/25 20:50 Influenza A (RT-PCR) Not Detected 05/12/25 20:50 Influenza B (RT-PCR) Not Detected 05/12/25 20:50 M. pneumoniae (PCR) Not Detected 05/12/25 20:50 Parainfluenza 1 (PCR) Not Detected 05/12/25 20:50 Parainfluenza 2 (PCR) Not Detected 05/12/25 20:50 Parainfluenza 3 (PCR) Not Detected 05/12/25 20:50 Parainfluenza 4 (PCR) Not Detected 05/12/25 20:50 RSV (PCR) Not Detected 05/12/25 20:50 Entero/Rhino (PCR) Not Detected 05/12/25 20:50 SARS-CoV-2 (PCR) Not Detected 05/12/25 20:50 Slides for Path Review * 05/13/25 04:55 Imaging: Viewed EKG: Reviewed Assessment and Plan (1) Choledocholithiasis: (2) Cholangitis: Plan Proceed with ERCP with sphincterotomy stones extraction with the balloon risks and benefits were all discussed in details complications including bleeding infection perforation and pancreatitis were among the risk discussed patient consented and proceeded cc: Tay Camara MD; Chris Velasquez MD Dictated by: Chris Velasquez MD on 05/15/251658 Entered by: Chris Velasquez MD on 05/15/25 1659 Report Signed by: Chris Velasquez MD on 05/15/25 1702 <<Signature on File>> <Electronically signed by Chris Velasquez MD> Report Signed by: on SOCIAL WORK DAILY NOTE Observed: 025 3:31 PM Status: F Source: [facility] National Recruiter Patient: DIONNA CONCEPCION [address] : 1975 [place], [place] [address] Location: ICU [phone] Unit #: [id number] Social Work Daily Note Yeimy M Park BEST WORKER, AUTOMOBILE RENTAL AGENT Service Date: 05/15/25 KAYLENE Daily Note - * Psychosocial Assessment * I have reviewed nursing and case management psychosocial information.: Yes - * Hospital Stay Days * Day 1 Note: 05/14/2025: SW c/s for Substance Abuse Screening. Tad Ambetter. CIWA. +tox for cannabinoids on admission. Hx of alcohol abuse. Enecphalopathy. Pt intubated overnight. National Recruiter to follow peripherally to discuss with pt when medically appropriate. Top Case Assembler: Yeimy Shah, BEST WORKER, AUTOMOBILE RENTAL AGENT Day 2 Note: 05/15/2025: SW following for Substance Abuse Screening. Tad Ambetter. CIWA. +tox for cannabinoids on admission. Hx of alcohol abuse- Wernickes Enecphalopathy. Pt remains intubated this date. KAYLENE updated by nursing staff that the pt's family is requesting pt d/c to a SNF in the [place], [place] area when medically ready for d/c. KAYLENE called and discussed this with pt's daughter, Maria Fernanda. Maria Fernanda reports most of the family lives between [place] and [place], so [place] would be a good middle location. KAYLENE briefly explained that pt will need to be able to participate with therapy in order for insurance to approve a SNF OR pt will need to have funds to private pay OR pt will need to have Medicaid. Maria Fernanda would like to see how the pt progresses to determine if it will be a short term or tank terminal gauger placement. Maria Fernanda reports she has not talked with her father in 3 years. Maria Fernanda is unaware of pt's finances and does not know of any POA paperwork that the pt has ever completed. Maria Fernanda stated that the pt is not legally to anyone. Maria Fernanda reports the pt has three living children: Maria Fernanda Betts PH: [phone], Beverly Concepcion PH: [phone] AND Dionna Concepcion PH: [phone]. Maria Fernanda reports Dionna will likely not want to participate in any decision making for the pt. KAYLENE explained that in [place] if there is no POA/Guardian and if pt is not legally , that any decisions will need to be a consensus between all living children. Maria Fernanda voiced understanding. Maria Fernanda would like to review a list of SNFs in [place], [place] to begin reviewing. Maria Fernanda reports her [place] is [address] [place] [address] [place] [address]. A list of SNFs within 30 miles of Maria Fernanda's address with quality scores emailed to Maria Fernanda at [email or web address]. KAYLENE requested Maria Fernanda to provide a list of 5-10 choices as pt may be a difficult placement d/t history of alcohol abuse and insurance. D/c planning needs pending medical course. SW to continue following. Top Case Assembler: Yeimy Shah MSW, LISW - * Requested Intvs/Referrals * Top Case Assembler I Referrals: Substance Abuse Screening - Community Services/Interventions Substance Use Screening: Initiated - * HEALTHCARE DECISIONS * Living Will: Unknown Durable Power of Cable Splicer Helper for Health Care: No Directive, No SS Referral [facility] DNR Comfort Care: No Directive, No SS Referral [facility] DNR Comfort Care Arrest: No Directive, No SS Referral Entered by: DENISSE Abreu LISW on 05/15/25 1107 Report Signed by: Yeimy Shah on 05/15/25 1531 <<Signature on File>> <Electronically signed by KARLA Ellis> Report Signed by: on CASE MANAGEMENT DAILY NOTE Observed: 08/2025 3:25 PM Status: F Source: [facility] Case Management Patient: DIONNA CONCEPCION [address] : 1975 [place], [place] [address] Location: ICU [phone] Unit #: [id number] Case Management Daily Note Sonja Mcmahan Service Date: 05/15/25 Case Mgmt Daily Note - Plan of Care Wood Drilling Machine Operator Agrees with Attending and Consult Plan: Yes - Patient Preferences AND Goals What is the patient's preference?: Services to be Determined Recommended acute discharge goals: Services to be Determined - Hospital Stay Days Day 1 Comment: 05/11 - Spoke with patient at bedside. Patient has Pavan Huynh. PCP is Pam Camara. director of player personnel is his father, Dionna. [facility] [place]. Denies services, DME. He is independent of ADLS and drives. He lives with his brother and father in a 1 story home with no steps to enter. Denies LW/DPOA. Per primary nurse, Jenni, she states that EMS reported that family stated patient has been depressed and having trouble with his left side weakness from his stroke 2 months ago. Also states he has been falling at home. Wood Drilling Machine Operator: Ana Snyder, RN Day 2 Comment: 05/12 - Spoke with pt. MRI completed and pending results. Neuro following. PT/OT ordered and recommended IPR. Rehab consulted to review case and waiting on response. Wood Drilling Machine Operator: Shelbi Jackson Day 3 Comment: 05/13 Dispo pending medical course. IPR following, c/s placed 05/12. MRI B (-) for acute CVA. WBC 42.9. Lactic 3.7. BC/UA/Sputum Cx. IV Rocephin/IVF. PT/OT. Wood Drilling Machine Operator: Jimena Carcamo RN Day 4 Comment: 05/14: Patient transferred to ICU overnight. Intubated. PEEP 5. FiO2 40%. Propofol. Versed. Levo. Vaso. IVP Solu Cortef QID. Seizure precautions. WBC 36.5. 7/8 blood cultures pending. IV unasyn Q6. ID following. MRCP today. Surgery following. SW d/t alcohol abuse. Needs TBD pending medical medical course. Wood Drilling Machine Operator: Sonja Mcmahan Day 5 Comment: 05/15: Patient remains intubated. PEEP 5. FiO2 30%. Versed. Levo. IVP Solu Cortef QID. IV ampicillin Q6. WBC 25.3. 7/9 sputum positive. 8 blood cultures negative to date. GI following, ERCP today. Surgery following. ID following. SW following d/t alcohol abuse. Needs TBD pending medical course. Wood Drilling Machine Operator: Sonja Mcmahan - Respiratory Equipment Does the patient use/have any of these devices at home?: N/A - Community Services Substance Use Screening: Initiated - * L * Length of Stay LOS (Including day of Admission and Discharge): 4 LOS Score: 4 - * A * Acuity on Admission ER Provider if admitted from ER (view): [email or web address] Was patient admitted to hospital via Emergency Dept? Score: 3 - * C * Comorbidities Select All Conditions that Apply: Cerebral Disease (Any previous stroke or transient ischemic attack) Comorbidities Total Score: 1 - * E * Emergency Department Visits # of ER visits,6mos prior to admit,excl this admits ER visit: 0 Enter this number or 4 (whichever is smaller): 0 - LACE SCORE LACE Score: 8 - ANTICIPATED DISCHARGE Anticipated Discharge Date: 05/19/25 Entered by: Sonja Mcmahan on 05/15/25 0842 Report Signed by: Sonja Mcmahan on 05/15/25 1525 <<Signature on File>> <Electronically signed by Sonja Mcmahan> Co-Signed by: on PROG NOTE - H&P UPDATE STAMP Observed: 0 05/15/2025 2:13 PM Status: F Source: [facility] Medical Records Patient: DIONNA CONCEPCION [address] : 1975 [place] [address] Location: ICU [phone] Unit #: [id number] Prog Note - HANDP Update Stamp Chris Velasquez MD Service Dt/Tm: 05/15/25 1413 HANDP dictated by Medical Staff Member Patient examined, Chart Reviewed: No changes HANDP dictated by Non-Staff Physician HANDP dictated by Non-Staff Physician: I have reviewed the History and Physicial from: Entered by: Chris Velasquez MD on 05/15/25 1413 Report Signed by: Chris Velasquez MD on 05/15/25 1413 <<Signature on File>> <Electronically signed by Chris Velasquez MD> Report Signed by: on PROGRESS NOTE CRITICAL CARE Observed: 12:37 PM Status: F Source: [facility] Medical Records Patient: DIONNA CONCEPCION. : 1975 [place] [address] Location: ICU [phone] Unit #: [id number] Progress Note Critical Care Nathan Ramos (ICU) [employer] Service Dt/Tm: 05/15/25 0840 ADDENDUM: Patient seen and examined at the bedside. Agree with Nathan Ramos nurse practitioner. Patient admitted with septic shock secondary to acute choledocholithiasis and ascending cholangitis, alcohol abuse with Warnicke's encephalopathy, recent diagnosis of ischemic stroke, upper GI bleeding most likely secondary to erosive gastritis. Patient hemodynamically status improved. He is currently off vasopressors. Remains sedated, currently on Versed and fentanyl pushes. Patient was arousable, following simple commands. The plan is to proceed with ERCP today and potential extubation later. Will continue current IV antibiotics and follow cultures. Addendum Entered by: Jack Miller MD on 05/15/25 at 1237 Addendum Signed by: Jack Miller MD on 05/15/25 1237 <<Signature on File>> <Electronically signed by Jack Miller MD> Addendum Signed by: on Assessment AND Plan (1) Sepsis: Qualifiers: Sepsis acute organ dysfunction status: unspecified Sepsis type: sepsis due to unspecified organism Qualified Code(s): A41.9 - Sepsis, unspecified organism Status: Acute Plan: Most likely secondary to acute choledocholithiasis, GI consulted Infectious disease consulted, appreciate recommendations. Plan for ERCP 05/15/2025 Refractory septic shock requiring norepinephrine and vasopressin to maintain MAP greater than 65, add hydrocortisone 50 every 6 Continue fluid resuscitation, LR at 50 cc/h Follow-up on cultures, Gram-negative bacilli in the sputum WBC downtrending Tmax in the last 24 hours 97.5. (2) Wernickes encephalopathy: Status: Acute Plan: As identified on brain MRI and CT imaging. Thiamine 500 x 9 doses (3) On mechanically assisted ventilation: Status: Acute Plan: CXR/CT findings consistent with emphysema in a patient with known tobacco abuse. Secondary to encephalopathy Vent order set Daily SAT/SBT Minimal vent settings (4) Metabolic acidosis: Status: Acute Plan: Compensated with his respiratory status, set back up vent settings with minute ventilation around 10 to avoid overcorrection and worsening acidemia Will hold off on bicarb infusion at this time Also with a component of hyperchloremic metabolic acidosis with a serum chloride of 115. Trend VBG (5) GI bleed: Qualifiers: GI bleed type/associated pathology: unspecified gastrointestinal hemorrhage type Qualified Code(s): K92.2 - Gastrointestinal hemorrhage, unspecified Status: Acute Plan: GI consulted, appreciate recommendations. Bloody OG tube output Continue PPI infusion Suspect most likely traumatic OG tube insertion, plan for ERCP today which will further differentiate. (6) Alcohol withdrawal: Qualifiers: Complication of substance-induced condition: with delirium Qualified Code(s): F10.931 - Alcohol use, unspecified with withdrawal delirium Status: Suspected Plan: [facility] protocol Sedation with Versed drip Seizure precautions MVI, thiamine, folic acid (7) Alcoholism: Status: Chronic Plan: CIWA scale (8) Sinus tachycardia: Status: Acute Plan: Most likely secondary to alcohol withdrawal in combination with septic shock Fluid resuscitation Treat underlying etiologies Avoid beta-blockers for acute sinus tachycardia in the ICU setting. Plan DAILY ICU EVENTS: 05/14-transfer to ICU after increased encephalopathy, leukocytosis, tachycardic, tachypnea. ID on consult. Abd tender and guarded to palpation. Pt obtunded after [address] abd/pelvis ordered. Surgery consulted due to concerns for bowel perforation or other pathology. Pt intubated for airway protection. IV atb changed back to Zosyn. 05/15: Decreasing pressor needs in the last 24 hours, no longer on vasopressin, continue hydrocortisone, plan for ERCP later today. Continue thiamine for Warnicke's encephalopathy. Okay with SAT, hold off on SBT until no further procedures are planned. Critical Care Checklist Analgesia: [Fentanyl as needed Sedation: [Versed drip] Vasoactive Infusions: [Norepinephrine] De-escalation of Antibiotics: [Unasyn] VTE Prophylaxis: [ SCDs, Lovenox on hold due to active OG tube bloody output.] PUD prophylaxis: PPI infusion Bowel prophylaxis: Last BM [] Nutrition: [NPO ] IV Fluids: [LR 50/hr] Glycemic Control: [N/A] AM Labs/Imaging: [Ordered ] Daily Sedation Holiday: [Yes] SBT Readiness: [Delay until further procedures are done] Head of Bed: [ > 30 degrees] PT/OT: [ N/A ] Case Man/Social Work: [N/A] Spiritual Care/Palliative/Ethics: [N/A] Family Update: At bedside Critical Care total time in minutes: 50 Code Status 05/11/25 18:30 Code Status Routine Resuscitation Status: Full Code Code Status Order Placed: Code Status Ordered 05/11/25 at 1830 Discussed Patient's Care With: Nurse, Case Management, Physician and Therapist Subjective Subjective: Patient seen and examined at bedside this morning. He remains intubated and sedated. Current Evaluation: Events from previous day reviewed Review of Systems Unable to do a review of systems due to: Non-Verbal and Patient on ventilator Objective General Appearance: Not alert, Resting Comfortably, and On Vent HEENT: Oral Mucosa Moist and Other (ET tube in place) Skin: Color normal, warm, dry Neck: Normal Inspection Cardiovascular: Regular Rate and Rhythm, S1, S2 Left Lung: Throughout: Clear Right Lung: Throughout: Clear Lungs: Good Air Entry; Negative Respiratory Distress Abdomen: Soft, Nontender to palpation Extremities: Activity as expected, Warm, and Dry; Negative Edema Neurologic: Grossly Intact and Moves all extremities Psychological: Deferred Vital Signs - 24 hr 05/15/25 07:53 71 20 122/79 99 05/15/25 07:00 71 20 120/79 99 05/15/25 06:45 68 20 118/77 99 05/15/25 06:30 71 20 115/75 99 05/15/25 06:15 75 20 116/79 99 05/15/25 06:00 70 20 115/76 100 05/15/25 05:45 74 20 118/81 99 05/15/25 05:30 72 20 123/81 99 05/15/25 05:15 72 20 119/82 99 05/15/25 05:00 68 19 117/73 99 05/15/25 04:45 73 20 122/78 99 05/15/25 04:30 61 20 123/77 100 05/15/25 04:15 68 20 121/77 100 05/15/25 04:06 68 20 123/82 100 05/15/25 04:00 97.6 F 73 20 123/82 99 30 05/15/25 04:00 30 05/15/25 03:45 72 20 118/79 99 05/15/25 03:30 73 20 121/81 99 05/15/25 03:15 74 20 118/80 99 05/15/25 03:00 73 20 115/76 100 05/15/25 02:45 67 20 106/76 99 05/15/25 02:30 74 20 115/78 99 05/15/25 02:15 73 20 119/78 99 05/15/25 02:00 73 20 122/80 99 05/15/25 01:45 71 20 125/78 99 05/15/25 01:30 71 20 125/84 100 05/15/25 01:15 64 20 116/78 99 05/15/25 01:00 76 20 127/85 99 05/15/25 00:45 73 20 124/83 99 05/15/25 00:30 77 20 125/84 99 05/15/25 00:15 79 20 120/83 99 05/15/25 00:01 76 20 99 05/15/25 00:00 30 05/15/25 00:00 97.6 F 80 19 120/90 98 30 05/14/25 23:45 68 20 118/79 100 05/14/25 23:30 69 20 119/80 99 05/14/25 23:15 68 20 119/79 99 05/14/25 23:00 72 20 117/78 99 05/14/25 22:50 71 20 116/79 99 05/14/25 22:45 72 20 116/79 99 05/14/25 22:30 72 20 116/77 100 05/14/25 22:18 64 20 110/70 100 05/14/25 21:45 72 20 104/76 99 05/14/25 21:30 74 20 103/72 99 05/14/25 21:15 71 20 102/70 100 05/14/25 21:00 65 20 102/73 100 05/14/25 20:45 66 20 102/75 100 05/14/25 20:30 68 20 104/73 100 05/14/25 20:15 67 20 99/73 100 05/14/25 20:00 40 05/14/25 20:00 66 20 98/67 100 05/14/25 19:51 67 98/69 99 05/14/25 19:45 69 20 98/69 100 05/14/25 19:30 64 20 90/64 99 05/14/25 19:15 71 20 97/71 99 05/14/25 19:00 97.6 F 72 20 94/71 99 40 05/14/25 18:45 75 20 93/70 99 05/14/25 18:30 76 20 90/67 99 40 05/14/25 18:15 78 20 89/64 L 99 05/14/25 18:00 75 20 84/64 L 99 05/14/25 17:45 81 20 84/64 L 99 05/14/25 17:30 85 20 88/67 L 99 05/14/25 17:15 81 20 93/68 99 05/14/25 17:01 74 20 104/76 99 05/14/25 17:00 76 20 99 05/14/25 16:54 71 20 116/79 99 05/14/25 16:45 73 20 117/73 100 05/14/25 16:30 74 20 118/73 99 05/14/25 16:30 97.0 F L 05/14/25 16:15 75 20 111/72 99 05/14/25 16:00 72 20 108/70 99 05/14/25 15:45 78 20 103/70 99 05/14/25 15:30 80 20 102/71 99 05/14/25 15:15 84 20 95/67 99 05/14/25 15:00 86 20 97/71 99 05/14/25 14:45 88 20 92/67 99 05/14/25 14:42 88 18 97/70 99 05/14/25 14:30 95 20 97/70 98 05/14/25 14:24 97 22 H 96/68 98 05/14/25 14:15 98 20 96/69 98 40 05/14/25 14:00 102 H 20 91/65 97 05/14/25 13:45 109 H 20 90/59 L 97 05/14/25 13:30 113 H 20 86/58 L 97 05/14/25 13:26 114 H 21 H 83/60 L 97 05/14/25 13:15 115 H 20 85/60 L 97 05/14/25 13:09 116 H 20 82/59 L 97 05/14/25 13:00 118 H 20 79/56 L 97 05/14/25 12:45 118 H 20 76/53 L 96 05/14/25 12:31 119 H 20 77/52 L 96 05/14/25 12:29 118 H 20 79/57 L 96 05/14/25 12:23 121 H 20 84/63 L 98 05/14/25 12:19 124 H 21 H 84/63 L 99 05/14/25 11:39 101.7 F H 05/14/25 11:10 123 H 21 H 91/62 100 05/14/25 11:00 125 H 25 H 91/62 99 05/14/25 10:45 125 H 27 H 96/63 99 05/14/25 10:30 127 H 27 H 106/71 100 05/14/25 10:15 126 H 31 H 116/74 100 05/14/25 10:00 122 H 23 H 106/65 05/14/25 09:57 124 H 32 H 100/77 100 05/14/25 09:44 126 H 35 H 100/77 100 05/14/25 09:30 126 H 36 H 91/69 98 05/14/25 09:27 125 H 35 H 93/64 98 05/14/25 09:15 117 H 34 H 82/53 L 05/14/25 09:13 118 H 36 H 81/54 L 05/14/25 09:00 114 H 33 H 78/56 L 99 05/14/25 08:50 113 H 31 H 85/57 L 99 05/14/25 08:45 114 H 34 H 83/59 L 99 Intake AND Output Intake Total 1811 Output Total 1010 1230 200 Balance -1010 581 -200 Actual Weight (Kg) 64.5 kg Intake: IV Intake (ml) 1811 Output: Void Output (ml) 125 Indwelling Urinary Catheter 285 1230 200 Output (ml) Gastric Tube Output (ml) 600 Other: Weight Measurement Method Built in [facility] Current Clinical Active Medications Amlodipine Besylate (Amlodipine Besylate 10 Mg Tab) 10 mg PO DAILY RENAN Stop: 08/19/25 09:01 Last Admin: 05/14/25 09:29 Dose: Not Given Artificial Tears (Artificial Tear Ointment 3.5 Gm Tube) 1 appl OU BID RENAN Stop: 08/21/25 09:01 Last Admin: 05/15/25 08:27 Dose: 1 appl Aspirin (Aspirin Chw 81 Mg Tab) 81 mg PO DAILY RENAN Stop: 08/19/25 09:01 Last Admin: 05/14/25 09:29 Dose: Not Given Atorvastatin Calcium (Atorvastatin Calcium 40 Mg Tab) 40 mg PO QHS RENAN Stop: 08/18/25 21:01 Last Admin: 05/13/25 21:14 Dose: 40 mg Chlorhexidine Gluconate (Chlorhexidine Gluconate 0.12% 30 Ml Btl (Vent Protocol)) 30 ml MT BID@08,20 [facility] Stop: 08/21/25 08:01 Last Admin: 05/15/25 07:53 Dose: 30 ml Diphenhydramine HCl (Diphenhydramine Hcl 25 Mg Cap) 25 mg PO QHSPRN PRN PRN Reason: insomnia Stop: 08/19/25 07:46 Docusate Sodium (Docusate Sodium 100 Mg Cap) 100 mg PO BIDPRN PRN PRN Reason: Constipation Stop: 08/19/25 07:46 Electrolyte Protocol (Phosphorus Replacement Protocol) 1 ea MD DIRECTED PRN; Protocol PRN Reason: SEE COMMENTS BELOW Stop: 08/19/25 07:46 Electrolyte Protocol (Calcium Replacement Protocol) 1 ea MD DIRECTED PRN; Protocol PRN Reason: SEE COMMENTS BELOW Stop: 08/19/25 07:46 Electrolyte Protocol (Magnesium Replacement Protocol 1 Ea Ea) 1 ea MD DIRECTED PRN; Protocol PRN Reason: SEE COMMENTS BELOW Stop: 08/19/25 07:46 Electrolyte Protocol (Potassium Replacement Protocol 1 Ea Ea) 1 ea MD DIRECTED PRN; Protocol PRN Reason: SEE COMMENTS BELOW Stop: 08/19/25 07:46 Enoxaparin Sodium (Enoxaparin Sodium 40 Mg/0.4 Ml Syr) 40 mg SC DAILY [facility] Stop: 08/19/25 09:01 Last Admin: 05/14/25 10:20 Dose: Not Given Ethyl Alcohol (Nasal Antiseptic (Nozin Nasal Cad Programmer) 1 Ampule) 1 each BNOS BID [facility] Stop: 08/20/25 09:01 Last Admin: 05/15/25 08:27 Dose: 1 each Fentanyl Citrate (Fentanyl Citrate 100 Mcg/2 Ml Amp) 50 mcg IV PUSH Q4HPRN PRN PRN Reason: Pain, Moderate to Severe Stop: 08/21/25 10:51 Hydrocortisone Sodium Succinate (Hydrocortisone Na Succinate 100 Mg/2 Ml Vial) 50 mg IV PUSH QID@0000,0600,1200,1800 [facility] Stop: 08/21/25 18:01 Last Admin: 05/15/25 05:34 Dose: 50 mg Dexmedetomidine HCl (Precedex Premix) 400 mcg in 100 mls @ 3.07 mls/hr IV DIRECTED RENAN; Protocol Stop: 08/21/25 05:46 Last Titration: 05/14/25 10:07 Dose: 0 mcg/kg/hr, 0 mls/hr Thiamine HCl 500 mg/ Sodium (Chloride) 55 mls @ 110 mls/hr IVPB Q8H RENAN Stop: 05/17/25 00:29 Last Admin: 05/15/25 08:27 Dose: 110 mls/hr Propofol (Diprivan) 1,000 mg in 100 mls @ 3.684 mls/hr IV DIRECTED RENAN; Protocol Stop: 08/21/25 08:31 Last Titration: 05/14/25 11:30 Dose: 0 mcg/kg/min, 0 mls/hr Norepinephrine/Dextrose (Levophed Premix) 4 mg in 250 mls @ 11.513 mls/hr IV DIRECTED RENAN; Protocol Stop: 08/21/25 09:31 Last Titration: 05/15/25 08:18 Dose: 0.12 mcg/kg/min, 27.63 mls/hr Midazolam HCl (Versed Premix) 100 mg in 100 mls @ 1 mls/hr IV DIRECTED RENAN; Protocol Stop: 08/21/25 09:46 Last Titration: 05/15/25 08:20 Dose: 0 mg/hr, 0 mls/hr Folic Acid 1 mg/ Sodium (Chloride) 50.2 mls @ 50.2 mls/hr IVPB DAILY RENAN Stop: 08/21/25 13:01 Last Admin: 05/15/25 08:26 Dose: 50.2 mls/hr Ampicillin Sodium/Sulbactam (Sodium 3 gm/ Sodium Chloride) 100 mls @ 200 mls/hr IVPB Q6H RENAN Stop: 05/21/25 12:01 Last Infusion: 05/15/25 08:21 Dose: Infused Vasopressin (Vasostrict) 20 units in 100 mls @ 9 mls/hr IV DIRECTED RENAN; Protocol Stop: 08/21/25 13:31 Last Titration: 05/14/25 16:59 Dose: 0 units/min, 0 mls/hr Lactated Ringer's (Lr) 1,000 mls @ 50 mls/hr IV DIRECTED RENAN Stop: 08/22/25 15:31 Pantoprazole Sodium (Protonix Premix) 80 mg in 100 mls @ 10 mls/hr IV Q10H RENAN Stop: 08/22/25 01:01 Last Admin: 05/15/25 08:27 Dose: 10 mls/hr Indomethacin (Indomethacin 50 Mg Sup) 100 mg [place] PREOP ONE Stop: 05/15/25 16:01 Lactobacillus Rhamnosus (Lactobacillus Rhamnosus (Gg) 1 Ea Cap) 1 ea PO DAILY RENAN Stop: 06/13/25 09:01 Last Admin: 05/15/25 08:27 Dose: Not Given Melatonin (Melatonin 3 Mg Tab) 3 mg PO QHSMRX1 PRN PRN Reason: insomnia Stop: 08/19/25 07:46 Multivitamins/Minerals (Multivitamin W Minerals 1 Each Tab) 1 tab PO DAILY RENAN Stop: 08/21/25 09:01 Last Admin: 05/15/25 08:27 Dose: Not Given Non-Formulary Medication (Pharmacy Communication 1 Ea Christiane) [address] RENAN Stop: 05/15/25 16:30 Non-Formulary Medication (Pharmacy Communication 1 Christiane Roper) [address] RENAN; Protocol Stop: 05/15/25 16:30 Ondansetron HCl (Ondansetron 4 Mg/2 Ml Vial) 4 mg IV PUSH Q6HPRN PRN PRN Reason: Nausea and Vomiting Stop: 08/19/25 07:46 Last Admin: 05/13/25 23:49 Dose: 4 mg Diet: 05/15/25 00:01 NPO Comment: stop tube feeding, if applicable Data Hematology WBC 25.4 H 25.3 H RBC 3.00 L 3.01 L Hgb 10.1 L D 10.2 L 9.8 L Hct 29.2 L D 29.5 L 28.6 L MCV 97.3 H 97.9 H MCH 33.5 H 33.9 H MCHC 34.4 34.6 RDW 19.6 H 19.8 H Plt Count 150 151 Neut % (Auto) 96.0 H Lymph % (Auto) 1.9 L Mcdonough % (Auto) 1.4 L Eos % (Auto) 0.2 Baso % (Auto) 0.5 Nucleat RBC Rel Count 0.0 Absolute Neuts (auto) 33826 H Absolute Lymphs (auto) 500 L Absolute Monos (auto) 400 Absolute Eos (auto) 0 Absolute Basos (auto) 100 Anisocytosis 1+ Chemistry Sodium Potassium Chloride Carbon Dioxide Anion Gap BUN Creatinine GFR Calculation POC Whole Bld Glucose 77 Random Glucose Fasting Glucose Lactic Acid 3.5 H* 2.3 H* Calcium Magnesium Triglycerides Sodium 139 Potassium 3.4 L Chloride 112 H Carbon Dioxide 18 L Anion Gap 9 BUN 24 H Creatinine 1.16 GFR Calculation > 60 POC Whole Bld Glucose 152 H Random Glucose 112 H Fasting Glucose Lactic Acid 1.2 Calcium 7.80 L Magnesium 1.9 Triglycerides Sodium 138 141 Potassium 4.5 3.9 Chloride 113 H 115 H Carbon Dioxide 19 L 19 L Anion Gap 6 7 BUN 24 H 21 H Creatinine 1.04 0.88 GFR Calculation > 60 > 60 POC Whole Bld Glucose 143 H Random Glucose 150 H Fasting Glucose 139 H Lactic Acid Calcium 7.70 L 8.00 L Magnesium 2.1 Triglycerides 115 Sodium Potassium Chloride Carbon Dioxide Anion Gap BUN Creatinine GFR Calculation POC Whole Bld Glucose 147 H Random Glucose Fasting Glucose Lactic Acid Calcium Magnesium Triglycerides ABG: Sample Site L Radial L Radial Central Line Collected by Daryl Gruber Jordan ABG pH 7.45 7.42 ABG pCO2 at Pt Temp 18 L* 25 L ABG pO2 at Pt Temp 96 82 ABG HCO3 12.3 L 16.1 L ABG O2 Saturation 98 97 ABG Base Excess -12 L -8 L VBG pH 7.40 VBG pCO2 at Pat Temp 26 L VBG pO2 at Pat Temp 42 L VBG HCO3 16.2 L VBG O2 Saturation 79 L VBG Base Excess -9 L Respiration Rate 16 20 20 Patient Equipment Vent Vent Vent Vent Mode AC AC AC FiO2 0.40 FiO2 % 0.40 0.40 Tidal Volume 450 500 500 PEEP 5.0 5.0 5.0 Blood Gas Notified By Yes Yes Yes Sample Site Central Line Vein Collected by ABG pH ABG pCO2 at Pt Temp ABG pO2 at Pt Temp ABG HCO3 ABG O2 Saturation ABG Base Excess VBG pH 7.43 H 7.46 H VBG pCO2 at Pat Temp 24 L 24 L VBG pO2 at Pat Temp 44 L 44 L VBG HCO3 16.2 L 16.8 L VBG O2 Saturation 82 L 84 L VBG Base Excess -8 L -7 L Respiration Rate 20 20 Patient Equipment Vent Vent Vent Mode AC AC FiO2 35.00 30.00 FiO2 % Tidal Volume 500 500 PEEP 5.0 5.0 Blood Gas Notified By Yes Yes Microbiology 05/13/25 09:16 Urine catheterized Urine Culture - Final No growth after 2 days. 05/13/25 06:54 Blood,Venous Blood Culture - Preliminary No growth after 2 days, cultures held 5 days. 05/13/25 06:44 Blood,Venous Blood Culture - Preliminary No growth after 2 days, cultures held 5 days. 05/14/25 04:06 Perirectal MRSA Screen - Preliminary No growth of MRSA after 1 day. 05/14/25 05:30 Sputum - Luki Gram Stain - Final 05/14/25 05:30 Sputum - Luki Sputum Culture - Preliminary Gram negative bacilli Imaging: Not Applicable Entered by: Nathan Ramos (ICU)EMMA on 05/15/25 0840 Report Signed by: Nathan (ICU) Rachel CARTER on 05/15/25 0902 <<Signature on File>> < 1217 <<Signature on File>> <Electronically signed by Jack Miller MD> METER GLUCOSE Collected: 5 11:25 AM Status: F Source: [facility] TYPE CODE TESTS RESULT OUT OF RANGE REFERENCE UNITS LAB L702.1000 Meter Glucose 115 High 70-110 mg/dl Performed By: #### L702.1000 #### Main Laboratory ([facility]) [facility] [place] [address] Regan Sahni MD VENOUS BLOOD GASES Collected: 5 10:43 AM Status: F Source: [facility] TYPE CODE TESTS RESULT OUT OF RANGE REFERENCE UNITS LAB L901.10475 Venous pH 7.47 High 7.31-7.41 LAB L901.35934 Venous pCO2 23 Low 41-51 mmHg LAB L901.84599 Venous pO2 38 Low 80-105 mmHg LAB L901.32957 Venous Bicarbonate 17.0 Low 23.0-28.0 mmol/L LAB L901.55515 Venous Base Excess -7 Low -2-3 mmol/L LAB L901.93210 Venous O2 Saturation 77 Low 95-98 % LAB L901.16598 Venous FiO2 0.30 Normal LAB [id number] ABG Draw Site Central Line Normal LAB L902.04088 ABG Device Vent Normal LAB [id number] Unit Notified? Yes Normal LAB L902.79442 ABG MODE AC Normal LAB [id number] VT 500 Normal LAB L902.27706 RR 20 Normal LAB [id number] PEEP 5.0 Normal Performed By: #### L901.1000 0 #### Main Laboratory ([facility]) [address] [place] [address] Regan Sahni MD ANESTHESIA PRE-OP EVALUATION Observed: 0 05/15/2025 8:56 AM Status: F Source: [facility] Medical Records Patient: DIONNA CONCEPCION [address] : 1975 [place], [place] [address] Location: ICU [phone] Unit #: [id number] Anesthesia Pre-Op Evaluation Dipak Dahl MD Service Dt/Tm: 05/15/25 08 DIONNA CONCEPCION is a 49 yr old M. Height (Ft AND In): 5 ft 7 in Actual Weight (Kg): 64.5 kg Body Mass Index (BMI): 22.2 NPO Since: MN Pre Op Diagnosis: ascending cholangitis Scheduled Procedure: Operation Date: 05/15/25 16:30 Proposed Procedures p ERCP(Not Applicable) - Chris Velasquez MD Does patient have a history of an organ transplant?: No Patient - Anesthesia Problems: Past Anesthesia WITHOUT Complications - Active Medications: Active Medications Amlodipine Besylate (Amlodipine Besylate 10 Mg Tab) 10 mg PO DAILY RENAN Stop: 08/19/25 09:01 Last Admin: 05/14/25 09:29 Dose: Not Given Artificial Tears (Artificial Tear Ointment 3.5 Gm Tube) 1 appl OU BID RENAN Stop: 08/21/25 09:01 Last Admin: 05/15/25 08:27 Dose: 1 appl Aspirin (Aspirin Chw 81 Mg Tab) 81 mg PO DAILY RENAN Stop: 08/19/25 09:01 Last Admin: 05/14/25 09:29 Dose: Not Given Atorvastatin Calcium (Atorvastatin Calcium 40 Mg Tab) 40 mg PO QHS RENAN Stop: 08/18/25 21:01 Last Admin: 05/13/25 21:14 Dose: 40 mg Chlorhexidine Gluconate (Chlorhexidine Gluconate 0.12% 30 Ml Btl (Vent Protocol)) 30 ml MT BID@08,20 RENAN Stop: 08/21/25 08:01 Last Admin: 05/15/25 07:53 Dose: 30 ml Diphenhydramine HCl (Diphenhydramine Hcl 25 Mg Cap) 25 mg PO QHSPRN PRN PRN Reason: insomnia Stop: 08/19/25 07:46 Docusate Sodium (Docusate Sodium 100 Mg Cap) 100 mg PO BIDPRN PRN PRN Reason: Constipation Stop: 08/19/25 07:46 Electrolyte Protocol (Phosphorus Replacement Protocol) 1 ea MD DIRECTED PRN; Protocol PRN Reason: SEE COMMENTS BELOW Stop: 08/19/25 07:46 Electrolyte Protocol (Calcium Replacement Protocol) 1 ea MD DIRECTED PRN; Protocol PRN Reason: SEE COMMENTS BELOW Stop: 08/19/25 07:46 Electrolyte Protocol (Magnesium Replacement Protocol 1 Ea Ea) 1 ea MD DIRECTED PRN; Protocol PRN Reason: SEE COMMENTS BELOW Stop: 08/19/25 07:46 Electrolyte Protocol (Potassium Replacement Protocol 1 Ea Ea) 1 ea MD DIRECTED PRN; Protocol PRN Reason: SEE COMMENTS BELOW Stop: 08/19/25 07:46 Enoxaparin Sodium (Enoxaparin Sodium 40 Mg/0.4 Ml Syr) 40 mg SC DAILY [facility] Stop: 08/19/25 09:01 Last Admin: 05/14/25 10:20 Dose: Not Given Ethyl Alcohol (Nasal Antiseptic (Nozin Nasal Cad Programmer) 1 Ampule) 1 each BNOS BID RENNA Stop: 08/20/25 09:01 Last Admin: 05/15/25 08:27 Dose: 1 each Fentanyl Citrate (Fentanyl Citrate 100 Mcg/2 Ml Amp) 50 mcg IV PUSH Q4HPRN PRN PRN Reason: Pain, Moderate to Severe Stop: 08/21/25 10:51 Hydrocortisone Sodium Succinate (Hydrocortisone Na Succinate 100 Mg/2 Ml Vial) 50 mg IV PUSH QID@0000,0600,1200,1800 [facility] Stop: 08/21/25 18:01 Last Admin: 05/15/25 05:34 Dose: 50 mg Dexmedetomidine HCl (Precedex Premix) 400 mcg in 100 mls @ 3.07 mls/hr IV DIRECTED RENAN; Protocol Stop: 08/21/25 05:46 Last Titration: 05/14/25 10:07 Dose: 0 mcg/kg/hr, 0 mls/hr Thiamine HCl 500 mg/ Sodium (Chloride) 55 mls @ 110 mls/hr IVPB Q8H RENAN Stop: 05/17/25 00:29 Last Admin: 05/15/25 08:27 Dose: 110 mls/hr Propofol (Diprivan) 1,000 mg in 100 mls @ 3.684 mls/hr IV DIRECTED RENAN; Protocol Stop: 08/21/25 08:31 Last Titration: 05/14/25 11:30 Dose: 0 mcg/kg/min, 0 mls/hr Norepinephrine/Dextrose (Levophed Premix) 4 mg in 250 mls @ 11.513 mls/hr IV DIRECTED RENAN; Protocol Stop: 08/21/25 09:31 Last Titration: 05/15/25 08:18 Dose: 0.12 mcg/kg/min, 27.63 mls/hr Midazolam HCl (Versed Premix) 100 mg in 100 mls @ 1 mls/hr IV DIRECTED RENAN; Protocol Stop: 08/21/25 09:46 Last Titration: 05/15/25 08:20 Dose: 0 mg/hr, 0 mls/hr Folic Acid 1 mg/ Sodium (Chloride) 50.2 mls @ 50.2 mls/hr IVPB DAILY RENAN Stop: 08/21/25 13:01 Last Admin: 05/15/25 08:26 Dose: 50.2 mls/hr Ampicillin Sodium/Sulbactam (Sodium 3 gm/ Sodium Chloride) 100 mls @ 200 mls/hr IVPB Q6H RENAN Stop: 05/21/25 12:01 Last Infusion: 05/15/25 08:21 Dose: Infused Vasopressin (Vasostrict) 20 units in 100 mls @ 9 mls/hr IV DIRECTED RENAN; Protocol Stop: 08/21/25 13:31 Last Titration: 05/14/25 16:59 Dose: 0 units/min, 0 mls/hr Lactated Ringer's (Lr) 1,000 mls @ 50 mls/hr IV DIRECTED RENAN Stop: 08/22/25 15:31 Pantoprazole Sodium (Protonix Premix) 80 mg in 100 mls @ 10 mls/hr IV Q10H RENAN Stop: 08/22/25 01:01 Last Admin: 05/15/25 08:27 Dose: 10 mls/hr Indomethacin (Indomethacin 50 Mg Sup) 100 mg [place] PREOP ONE Stop: 05/15/25 16:01 Lactobacillus Rhamnosus (Lactobacillus Rhamnosus (Gg) 1 Ea Cap) 1 ea PO DAILY RENAN Stop: 06/13/25 09:01 Last Admin: 05/15/25 08:27 Dose: Not Given Melatonin (Melatonin 3 Mg Tab) 3 mg PO QHSMRX1 PRN PRN Reason: insomnia Stop: 08/19/25 07:46 Multivitamins/Minerals (Multivitamin W Minerals 1 Each Tab) 1 tab PO DAILY RENAN Stop: 08/21/25 09:01 Last Admin: 05/15/25 08:27 Dose: Not Given Non-Formulary Medication (Pharmacy Communication 1 Ea Christiane) [address] RENAN Stop: 05/15/25 16:30 Non-Formulary Medication (Pharmacy Communication 1 Christiane Roper) [address] RENAN; Protocol Stop: 05/15/25 16:30 Ondansetron HCl (Ondansetron 4 Mg/2 Ml Vial) 4 mg IV PUSH Q6HPRN PRN PRN Reason: Nausea and Vomiting Stop: 08/19/25 07:46 Last Admin: 05/13/25 23:49 Dose: 4 mg Allergies/Adverse Reactions No Known Drug Allergies Allergy (Verified 05/11/25 15:01) Home Medications amlodipine 10 mg tablet 10 mg PO DAILY 05/11/25 [Confirmed 05/11/25] aspirin 81 mg chewable tablet 1 tab PO DAILY 05/11/25 [Confirmed 05/11/25] Past Medical History Medical History (Updated 05/15/25 @ 08:55 by Nathan Ramos (ICU), [employer]) History of right MCA stroke Fatigue Chronic pancreatitis Alcoholism Metabolic encephalopathy Acute respiratory failure Smoker Hypertriglyceridemia Hypertension CVA (cerebral vascular accident) left sided defecits Past Surgical History Surgical History (Updated 05/15/25 @ 08:55 by Dipak Dahl MD) S/P rotator cuff repair Social History Caffeine Amount: 1-2/Day Current Type of Alcohol: Beer Current Alcohol Amount: Socially/Occasionally Smoking Status: Heavy tobacco smoker Type of Tobacco: Cigarettes Smoking Amount: 1 pack per day Family History Other No pertinent family history Vital Signs - Last Set Temperature 97.6 F 05/15/25 04:00 Pulse Rate 71 05/15/25 07:53 Respiratory Rate 20 05/15/25 07:53 Blood Pressure 122/79 05/15/25 07:53 Oxygen Saturation% 99 05/15/25 07:53 Liters of Oxygen 2 05/14/25 03:57 FiO2 % Amount 30 05/15/25 04:00 CBC/BMP Diagrams 05/15/25 06:37 Images available, please contact [facility] Medical Records 05/15/25 01:55 Images available, please contact [facility] Medical Records INR 0.98 (0.9-1.2) 05/11/25 15:14 Sample Site L Radial L Radial Central Line Collected by Daryl Gruber Jordan ABG pH 7.45 7.42 ABG pCO2 at Pt Temp 18 L* 25 L ABG pO2 at Pt Temp 96 82 ABG HCO3 12.3 L 16.1 L ABG O2 Saturation 98 97 ABG Base Excess -12 L -8 L VBG pH 7.40 VBG pCO2 at Pat Temp 26 L VBG pO2 at Pat Temp 42 L VBG HCO3 16.2 L VBG O2 Saturation 79 L VBG Base Excess -9 L Respiration Rate 16 20 20 Patient Equipment Vent Vent Vent Vent Mode AC AC AC FiO2 0.40 FiO2 % 0.40 0.40 Tidal Volume 450 500 500 PEEP 5.0 5.0 5.0 Blood Gas Notified By Yes Yes Yes Sample Site Central Line Vein Collected by ABG pH ABG pCO2 at Pt Temp ABG pO2 at Pt Temp ABG HCO3 ABG O2 Saturation ABG Base Excess VBG pH 7.43 H 7.46 H VBG pCO2 at Pat Temp 24 L 24 L VBG pO2 at Pat Temp 44 L 44 L VBG HCO3 16.2 L 16.8 L VBG O2 Saturation 82 L 84 L VBG Base Excess -8 L -7 L Respiration Rate 20 20 Patient Equipment Vent Vent Vent Mode AC AC FiO2 35.00 30.00 FiO2 % Tidal Volume 500 500 PEEP 5.0 5.0 Blood Gas Notified By Yes Yes EKG: NSR Echo: Normal LV size and function. Ejection fraction is visually estimated at 60-65%. Borderline left ventricular hypertrophy. No evidence of ventricular septal defect. No evidence of LV diastolic dysfunction. Normal right ventricular size and function. RV S' measures 14.8 cm/s. TAPSE measures 2.90 cm. Normal size left atrium. The LA ESV Index (BP) is 12.1 mL/m2. Bubble study was performed with no evidence of ASD or PFO. Normal size right atrium. The aortic valve is trileaflet with good leaflet separation. No evidence of aortic stenosis or regurgitation. No evidence of mitral regurgitaton. No evidence of mitral valve stenosis. Mild mitral annular calcification is present. No evidence of tricuspid regurgitation. No evidence of tricuspid stenosis. There is a pericardial effusion near the RV measuring 1.80 cm. No evidence of tamponade physiology. Technically difficult study due to poor acoustic windows. IVC not well visualized. Teeth: Other Airway Assessed: WNL (intubated on vent) Mental Status: Sedated Lungs: WNL Heart: RRR Mallampati: 2 ASA: 4 (On low dose levophed. Weaning off.) and E Planned Anesthesia: General Pre-op interview conducted in presence of family/friend with patient's verbal consent. Impression AND Plan, including the type of medications for induction, maintenance, and Blood Conservation techniques have been discussed with patient and patient accepts. Entered by: Dipak Dahl MD on 05/15/25 0841 Report Signed by: Dipak Dahl MD on 05/15/25 0856 <<Signature on File>> <Electronically signed by Dipak Dahl MD> Report Signed by: on VENOUS BLOOD GASES Collected: 05/15/2025 6:40 AM Sta tus: F Source: [facility] TYPE CODE TESTS RESULT OUT OF RANGE REFERENCE UNITS LAB L901.67782 Venous pH 7.46 High 7.31-7.41 LAB L901.04986 Venous pCO2 24 Low 41-51 mmHg LAB L901.05211 Venous pO2 44 Low 80-105 mmHg LAB L901.66809 Venous Bicarbonate 16.8 Low 23.0-28.0 mmol/L LAB L901.59455 Venous Base Excess -7 Low -2-3 mmol/L LAB L901.88939 Venous O2 Saturation 84 Low 95-98 % LAB L901.58963 Venous FiO2 30.00 Normal LAB L902.15780 ABG Draw Site Vein Normal LAB L902.64269 ABG Device Vent Normal LAB L902.64876 Unit Notified? Yes Normal LAB L902.73985 ABG MODE AC Normal LAB L902.79347 VT 500 Normal LAB L902.01869 RR 20 Normal LAB L902.23681 PEEP 5.0 Normal Performed By: #### L901.1000 0 #### Main Laboratory ([facility]) [address] [place] [address] Regan Sahni MD HEMOGLOBIN & HEMATOCRIT Collected: 05/06 6:37 AM Status: F Source: [facility] TYPE CODE TESTS RESULT OUT OF RANGE REFERENCE UNITS LAB L100.0400 Hemoglobin 9.8 Low 13.5-16.5 gm/dL LAB L100.0500 Hematocrit 28.6 Low 40.0-49.0 % Performed By: #### L100.0074 #### Main Laboratory ([facility]) [address] [place] [address] Regan Sahni MD METER GLUCOSE Collected: 6:18 AM Status: F Source: [facility] TYPE CODE TESTS RESULT OUT OF RANGE REFERENCE UNITS LAB L702.1000 Meter Glucose 147 High 70-110 mg/dl Performed By: #### L702.1000 #### Main Laboratory ([facility]) [facility] [place] [address] Regan Sahni MD BASIC METABOLIC,NON-FASTING Collected: 05/15/2025 1:55 AM Status: F Source: [facility] Order Comment: Comment [facility] monitoring Is Patient Fasting? Unknown TYPE CODE TESTS RESULT OUT OF RANGE REFERENCE UNITS LAB L400.1400 Sodium 141 Normal 135-145 mEq/L LAB L400.1500 Potassium 3.9 Normal 3.6-5.0 mEq/L LAB L400.1600 Chloride 115 High 101-111 mEq/L LAB L400.1700 Carbon Dioxide 19 Low 21-32 mEq/L LAB L400.1800 Anion Gap 7 Normal 4-12 LAB L400.1820 Glucose 150 High 70-110 mg/dL LAB L400.1835 BUN 21 High 7-20 mg/dL LAB L400.1840 Creatinine 0.88 Normal 0.60-1.30 mg/dL LAB L400.1845 GFR Calculation > 60 Normal Result Comment: Chronic Kidn ey Disease stages by NKDF Stage eGFR I >90 II 60-89 III 30-59 IV 15-29 V <15 or dialysis Note: Information regarding the eGFR equation used can be found at https://www.kidney.org/gisg-edmxh-poqtanyx. AGE(years) AVERAGE GFR 50-59 93 ml/min/1.73 square meters Note:This result is normalized to 1.73 square meter body surface area. Height and weight are not factored. LAB L400.2100 Calcium 8.00 Low 8.8-10.5 mg/dL Performed By: #### L400.2500 , L400.0152, L400.5100 #### Main Laboratory ([facility]) [address] [facility] [place] [address] Regan Sahni MD TRIGLYCERIDES Collected: 05/15/2025 1:55 AM Status: F Source: [facility] Order Comment: Comment [facility] monitoring Is Patient Fasting? Unknown TYPE CODE TESTS RESULT OUT OF RANGE REFERENCE UNITS LAB L400.2500 Triglycerides 115 Normal <150 mg/dL Performed By: #### L400.2500 , L400.0152, L400.5100 #### Main Laboratory ([facility]) [address] [place] [address] Regan Sahni MD MAGNESIUM Collected: 1:55 AM Status: F Source: [facility] Order Comment: Comment [facility] monitoring Is Patient Fasting? Unknown TYPE CODE TESTS RESULT OUT OF RANGE REFERENCE UNITS LAB L400.5100 Magnesium 2.1 Normal 1.8-2.5 mg/dL Performed By: #### L400.2500 , L400.0152, L400.5100 #### Main Laboratory ([facility]) [address] [place] [address] Regan Sahni MD CBC WITH DIFFERENTIAL Collected: 05/15/2025 1:55 AM Status: F Source: [facility] TYPE CODE TESTS RESULT OUT OF RANGE REFERENCE UNITS LAB L100.0100 WBC 25.3 High 4.4-10.5 th/cmm LAB L100.0300 RBC 3.01 Low 4.50-6.00 mil/cmm LAB L100.0400 Hemoglobin 10.2 Low 13.5-16.5 gm/dL LAB L100.0500 Hematocrit 29.5 Low 40.0-49.0 % LAB L100.0600 MCV 97.9 High 80-97 CU DEIDRA LAB L100.0700 MCH 33.9 High 27.5-33.0 PG LAB L100.0800 MCHC 34.6 Normal 33.0-36.0 gm/dL LAB L100.0900 RDW 19.8 High 12.0-16.0 % LAB L100.1000 Platelet Count 151 Normal 150-400 th/cmm LAB L100.1200 Neut-Auto Diff 96.0 High 40-70 % LAB L100.1300 Lymph- Auto Diff 1.9 Low 15-45 % LAB L100.1400 Mcdonough- Auto Diff 1.4 Low 2-10 % LAB L100.1425 EOS-Auto Diff 0.2 Normal 0-6 % LAB L100.1450 Baso- Auto Diff 0.5 Normal 0-2 % LAB L100.1470 NRBC-Auto 0.0 Normal <1 /100 WBC LAB L100.1475 Abs Neut Count 47528 High 5019-2076 /cmm LAB L100.1480 Abs Lymph Count 500 Low 6059-6123 /cmm LAB L100.1485 Abs Mcdonough Count 400 Normal 0-800 /cmm LAB L100.1490 Abs Eos Count 0 Normal 0-500 /cmm LAB L100.1495 Abs Baso Count 100 Normal 0-200 /cmm LAB L100.4300 Anisocytosis 1+ Normal Performed By: #### L100.0000 #### Main Laboratory ([facility]) [address] [place] [address] Regan Sahni MD METER GLUCOSE Collected: 11:34 PM Status: F Source: [facility] TYPE CODE TESTS RESULT OUT OF RANGE REFERENCE UNITS LAB L702.1000 Meter Glucose 143 High 70-110 mg/dl Performed By: #### L702.1000 #### Main Laboratory ([facility]) [facility] [place] [address] Regan Sahni MD VENOUS BLOOD GASES Collected: 10:42 PM Status: F Source: [facility] TYPE CODE TESTS RESULT OUT OF RANGE REFERENCE UNITS LAB L901.77193 Venous pH 7.43 High 7.31-7.41 LAB L901.61909 Venous pCO2 24 Low 41-51 mmHg LAB L901.79358 Venous pO2 44 Low 80-105 mmHg LAB L901.71496 Venous Bicarbonate 16.2 Low 23.0-28.0 mmol/L LAB L901.26280 Venous Base Excess -8 Low -2-3 mmol/L LAB L901.27940 Venous O2 Saturation 82 Low 95-98 % LAB L901.85135 Venous FiO2 35.00 Normal LAB L902.22583 ABG Draw Site Central Line Normal LAB L902.25663 ABG Device Vent Normal LAB L902.49232 Unit Notified? Yes Normal LAB L902.50679 ABG MODE AC Normal LAB L902.66430 VT 500 Normal LAB L902.18322 RR 20 Normal LAB L902.04504 PEEP 5.0 Normal Performed By: #### L901.1000 0 #### Main Laboratory ([facility]) [address] [place] [address] Regan Sahni MD CBC WITHOUT DIFFERENTIAL Collected: 07/2025 10:10 PM Status: F Source: [facility] TYPE CODE TESTS RESULT OUT OF RANGE REFERENCE UNITS LAB L100.0100 WBC 25.4 High 4.4-10.5 th/cmm LAB L100.0300 RBC 3.00 Low 4.50-6.00 mil/cmm LAB L100.0400 Hemoglobin 10.1 Low 13.5-16.5 gm/dL Result Comment: Delta: 13.7 on 05/14/25-0240 LAB L100.0500 Hematocrit 29.2 Low 40.0-49.0 % Result Comment: Delta: 40.1 on 05/14/25-0240 LAB L100.0600 MCV 97.3 High 80-97 CU DEIDRA LAB L100.0700 MCH 33.5 High 27.5-33.0 PG LAB L100.0800 MCHC 34.4 Normal 33.0-36.0 gm/dL LAB L100.0900 RDW 19.6 High 12.0-16.0 % LAB L100.1000 Platelet Count 150 Normal 150-400 th/cmm Performed By: #### L100.0050 #### Main Laboratory ([facility]) [address] [place] [address] Regan Sahni MD BASIC METABOLIC PANEL,FASTING Collected: 05/14/2025 9 :42 PM Status: F Source: [facility] TYPE CODE TESTS RESULT OUT OF RANGE REFERENCE UNITS LAB L400.1400 Sodium 138 Normal 135-145 mEq/L LAB L400.1500 Potassium 4.5 Normal 3.6-5.0 mEq/L LAB L400.1600 Chloride 113 High 101-111 mEq/L LAB L400.1700 Carbon Dioxide 19 Low 21-32 mEq/L LAB L400.1800 Anion Gap 6 Normal 4-12 LAB L400.1810 Glucose, Fasting 139 High 70-110 mg/dL LAB L400.1835 BUN 24 High 7-20 mg/dL LAB L400.1840 Creatinine 1.04 Normal 0.60-1.30 mg/dL LAB L400.1845 GFR Calculation > 60 Normal Result Comment: Chronic Kidn ey Disease stages by NKDF Stage eGFR I >90 II 60-89 III 30-59 IV 15-29 V <15 or dialysis Note: Information regarding the eGFR equation used can be found at https://www.kidney.org/qwxy-oxccl-jnmnxflc. AGE(years) AVERAGE GFR 50-59 93 ml/min/1.73 square meters Note:This result is normalized to 1.73 square meter body surface area. Height and weight are not factored. LAB L400.2100 Calcium 7.70 Low 8.8-10.5 mg/dL Performed By: #### L400.0202 #### Main Laboratory ([facility]) [address] [place] [address] Regan Sahni MD EKG MONITORING Observed: 05/14/2025 6:47 PM Status: F Source: [facility] Patient: DIONNA CONCEPCION [address] : 1975 [place], [place] [address] Location: ICU [phone] Unit #: [id number] Ordering Phys: Jack Miller MD EKG Monitoring Fransisco Linares MD Exam Date/Time May 13 2025 21:19:32 Test Reason : Blood Pressure : / mmHG Vent. Rate : 127 BPM Atrial Rate : 131 BPM P-R Int : 104 ms QRS Dur : 074 ms QT Int : 412 ms P-R-T Axes : 000 066 069 degrees QTc Int : 598 ms Sinus tachycardia with short [place] Nonspecific ST and T wave abnormality Abnormal ECG Confirmed by Fransisco Linares ([id number]) on 05/14/2025 6:46:45 PM Referred By: Jack Melara Exam Date/Time May 13 2025 21:19:32 Confirmed By:Fransisco Linares Dictated by: Fransisco Linares MD on 05/13/252118 Transcribed by: Ornicept M-AT on 05/14/251845 Report Signed by: Fransisco Linares MD on 05/14/251846 VENOUS BLOOD GASES Collected: 05/14/2025 5:42 PM Sta tus: F Source: [facility] TYPE CODE TESTS RESULT OUT OF RANGE REFERENCE UNITS LAB L901.42925 Venous pH 7.40 Normal 7.31-7.41 LAB L901.05821 Venous pCO2 26 Low 41-51 mmHg LAB L901.56848 Venous pO2 42 Low 80-105 mmHg LAB L901.72231 Venous Bicarbonate 16.2 Low 23.0-28.0 mmol/L LAB L901.73298 Venous Base Excess -9 Low -2-3 mmol/L LAB L901.27099 Venous O2 Saturation 79 Low 95-98 % LAB L901.84301 Venous FiO2 0.40 Normal LAB L902.15498 ABG Draw Site Central Line Normal LAB L902.01095 ABG Device Vent Normal LAB L902.20997 Unit Notified? Yes Normal LAB L902.24270 ABG MODE AC Normal LAB L902.18827 VT 500 Normal LAB L902.83404 RR 20 Normal LAB L902.02240 PEEP 5.0 Normal Performed By: #### L901.1000 0 #### Main Laboratory ([facility]) [address] [place] [address] Regan Sahni MD CONSULTATION - CRITICAL CARE Observed: 0 05/14/2025 5:42 PM Status: F Source: [facility] Patient: DIONNA CONCEPCION [address] : 1975 [place], [place] [address] Location: ICU [phone] Unit #: [id number] Consultation - Critical Care Chel Cleveland [employer] Service Date: 05/14/25 ADDENDUM: Patient is seen and examined at the bed side. Agree with Chel [facility]. This is a 49-year-old male patient with significant past medical history of ischemic CVA, alcohol abuse brought to the ER with altered mental status. He was found to have a subacute right MCA infarct on 05/12. Patient became tachypneic, tachycardic, febrile [place] [address]. He was started on Unasyn by infectious disease. CT abdomen pelvis showed gallbladder distention and small bowel obstruction. General surgery was consulted. NG tube was placed. Patient became more lethargic. He was intubated for airway protection and transferred to intensive care unit for further care. Patient became progressively more hypotensive, did not response to fluids. He was started on vasopressors. Gallbladder ultrasound showed capillary distention, minimal gallbladder sludge. Increased common bile duct caliber. MRCP was ordered by general surgery and showed lower common duct choledocholithiasis with mild lower ductal dilation. A/P: Suspect ascending cholangitis Choledocholithiasis Septic Shock secondary to above Acute hypoxemic respiratory failure Small bowel obstruction Acute kidney injury Hyperkalemia Alcohol abuse Acute toxic metabolic encephalopathy On broad spectrum antibiotics Continue vasopressors Started on Hydrocortisone Maintain MAP>65 Follow up cultures GI consulted for ERCP GS following [facility] protocol Versed for sedation, fentanyl as needed for analgesia Lovenox for DVT prophylaxis/GI prophylaxis Continue IVF Addendum Entered by: Jack Miller MD on 05/14/25 at 1741 Addendum Signed by: Jack Miller MD on 05/14/25 1741 <<Signature on File>> <Electronically signed by Jack Miller MD> Addendum Signed by: on History of Present Illness Date of Consultation: 05/14/25 Time Seen: 03:06 Reason for Consultation: tachycardic, tachypnea History of Present Illness: DIONNA CONCEPCION is a 49 yr old M who was admitted on 05/12/25 for RT MCA INFARCT/LT SIDED WEAKNESS. Pt admitted on 05/11 with past medical history of hypertension, alcohol use disorder and CVA with left-sided residuals from March 2025. Who presented to the emergency department via EMS with reports of fatigue, generalized weakness. History of multiple falls. Workup revealed CT head suggestive of hypodensity in the posterior right frontal lobe which may represent a subacute right MCA infarct. Patient was admitted for right MCA infarct and hypokalemia. On 05/13, labs revealed worsening leukocytosis of 38,000 from 13,000. Sepsis workup initiated. Patient was started on IV Rocephin. WBC increased to 42. Low-grade temperature of 100.5. Patient was tachycardic. Lactic acidosis. Respiratory panel negative. UA negative. ID was consulted. CT chest abdomen pelvis revealed proximal duodenal wall thickening, periampullary diverticulum and adjacent stranding suggesting possibility of duodenitis/peptic ulcer disease,groove pancreatitis or periampullary diverticulitis. No pulmonary airspace disease/pneumonia or pleural effusion. chronic changes ID evaluated patient. Change antibiotics to Unasyn for diverticulitis. Patient tachycardic, tachypneic, suspected to be developing tremors. On my exam, pt is obtunded, tachycardic, tachypneic with respirations 30-40s, urine cody appearance. Pt noted to have a distended abd, tender with guarding when palpated. Concern for bowel perforation. CT abd/pelvis ordered prior to transfer to ICU. Pt withdraws to pain. 335-called Dr. Acosta, surgeon called for concerns of pts clinical status, profound leukocytosis, lactic acidosis and tender abd, and difficult to assess due to obtunded appearance, ct abd/pelvis completed prior to transfer to ICU. 350-attempted to call pt's father 3 times. Call straight to voicemail. 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 Past Surgical History Surgical History (Updated 05/14/25 @ 06:38 by Emeka Acosta MD) No pertinent past surgical history Social History Caffeine Amount: 1-2/Day Current Type of Alcohol: Beer Current Alcohol Amount: Socially/Occasionally Smoking Status: Heavy tobacco smoker Type of Tobacco: Cigarettes Smoking Amount: 1 pack per day Family History Other No pertinent family history Review of Systems Unable to do a review of systems due to: Confused, Sedated and Unresponsive Physical Exam Last Vital Signs Temp Pulse Resp BP Pulse Ox O2 Flow Rate 98.5 F 128 H 40 H 131/96 H 92 2.0 05/14/25 01:34 05/14/25 01:34 05/14/25 01:34 05/14/25 01:34 05/14/25 01:34 05/14/25 01:34 Height (Ft AND In) 5 ft 7 in Admitting (IV Pump) Weight 61.4 kg Actual Weight (Kg) 61.4 kg General Appearance: Positive Acute Distress and Other (obtunded) Skin: Negative Warm, Dry Cardiovascular: Positive Tachycardic Rhythm Lungs: Positive Respiratory Distress (tachypnea, 2 liters nasal cannula) Abdomen: Positive Soft, Tender to palpation and Rebound tender to palpat. Neurologic: Positive Other (left arm weakness, previous CVA) Psychological: Positive Other (obtunded) Glascow Coma Scale Eye Opening: To Pain Best Motor Response: Flexes/Withdraws Best Verbal Response: Incomprehensible Sounds Score: 8 Current Clinical Active Medications Acetaminophen (Acetaminophen 325 Mg Tab) 650 mg PO Q6HPRN PRN PRN Reason: Pain,Mild Or Fever >101.0 F Stop: 08/19/25 07:46 Last Admin: 05/13/25 21:14 Dose: 650 mg Amlodipine Besylate (Amlodipine Besylate 10 Mg Tab) 10 mg PO DAILY [facility] Stop: 08/19/25 09:01 Last Admin: 05/13/25 08:48 Dose: 10 mg Aspirin (Aspirin Chw 81 Mg Tab) 81 mg PO DAILY [facility] Stop: 08/19/25 09:01 Last Admin: 05/13/25 08:09 Dose: 81 mg Atorvastatin Calcium (Atorvastatin Calcium 40 Mg Tab) 40 mg PO QHS RENAN Stop: 08/18/25 21:01 Last Admin: 05/13/25 21:14 Dose: 40 mg Diphenhydramine HCl (Diphenhydramine Hcl 25 Mg Cap) 25 mg PO QHSPRN PRN PRN Reason: insomnia Stop: 08/19/25 07:46 Docusate Sodium (Docusate Sodium 100 Mg Cap) 100 mg PO BIDPRN PRN PRN Reason: Constipation Stop: 08/19/25 07:46 Electrolyte Protocol (Phosphorus Replacement Protocol) 1 christiane MORSE DIRECTED PRN; Protocol PRN Reason: SEE COMMENTS BELOW Stop: 08/19/25 07:46 Electrolyte Protocol (Calcium Replacement Protocol) 1 christiane MORSE DIRECTED PRN; Protocol PRN Reason: SEE COMMENTS BELOW Stop: 08/19/25 07:46 Electrolyte Protocol (Magnesium Replacement Protocol 1 Ea Christiane) 1 christiane MORSE DIRECTED PRN; Protocol PRN Reason: SEE COMMENTS BELOW Stop: 08/19/25 07:46 Electrolyte Protocol (Potassium Replacement Protocol 1 Christiane Roper) 1 christiane MORSE DIRECTED PRN; Protocol PRN Reason: SEE COMMENTS BELOW Stop: 08/19/25 07:46 Enoxaparin Sodium (Enoxaparin Sodium 40 Mg/0.4 Ml Syr) 40 mg SC DAILY [facility] Stop: 08/19/25 09:01 Last Admin: 05/13/25 08:09 Dose: 40 mg Ethyl Alcohol (Nasal Antiseptic (Nozin Nasal Cad Programmer) 1 Ampule) 1 each BNOS BID [facility] Stop: 08/20/25 09:01 Last Admin: 05/13/25 21:14 Dose: 1 each Folic Acid (Folic Acid 1 Mg Tab) 1 mg PO DAILY [facility] Stop: 08/21/25 09:01 Sodium Chloride (Ns) 1,000 mls @ 100 mls/hr IV DIRECTED RENAN Stop: 08/20/25 06:16 Last Admin: 05/13/25 17:58 Dose: 100 mls/hr Ampicillin Sodium/Sulbactam (Sodium 3 gm/ Sodium Chloride) 100 mls @ 200 mls/hr IVPB Q6H [facility] Stop: 05/21/25 00:01 Last Infusion: 05/14/25 00:22 Dose: Infused Lactobacillus Rhamnosus (Lactobacillus Rhamnosus (Gg) 1 Ea Cap) 1 ea PO DAILY [facility] Stop: 06/13/25 09:01 Lorazepam (Lorazepam 1 Mg Tab) 1 mg PO Q2HPRN PRN PRN Reason: CIWA Score 10-18 Stop: 08/20/25 23:13 Lorazepam (Lorazepam 1 Mg Tab) 2 mg PO Q1HPRN PRN PRN Reason: CIWA Score > or =19 Stop: 08/20/25 23:13 Melatonin (Melatonin 3 Mg Tab) 3 mg PO QHSMRX1 PRN PRN Reason: insomnia Stop: 08/19/25 07:46 Midazolam HCl (Midazolam Hcl 2 Mg/2 Ml Vial) 2 mg IV PUSH Q3HPRN PRN PRN Reason: CIWA >16 Stop: 08/21/25 02:05 Last Admin: 05/14/25 02:13 Dose: 2 mg Multivitamins/Minerals (Multivitamin W Minerals 1 Each Tab) 1 tab PO DAILY [facility] Stop: 08/21/25 09:01 Ondansetron HCl (Ondansetron 4 Mg/2 Ml Vial) 4 mg IV PUSH Q6HPRN PRN PRN Reason: Nausea and Vomiting Stop: 08/19/25 07:46 Last Admin: 05/13/25 23:49 Dose: 4 mg Pantoprazole Sodium (Pantoprazole Na 40 Mg Vial) 40 mg IV PUSH DAILY RENAN Stop: 08/21/25 09:01 Polyethylene Glycol (Polyethylene Glycol 17 Gm Pkg) 17 gm PO DAILYPRN PRN PRN Reason: Constipation Stop: 08/19/25 07:46 Thiamine HCl (Thiamine Hcl 100 Mg Tab) 100 mg PO DAILY RENAN Stop: 08/21/25 09:01 Diet: 05/11/25 20:09 AHA Diet Texture: Regular Fluid Restrictions?: No Data Laboratory Results - Last 24 hr WBC 38.7 H* D RBC 4.43 L Hgb 15.2 Hct 42.9 MCV 96.9 MCH 34.3 H MCHC 35.4 RDW 19.3 H Plt Count 336 Neutrophils % (Manual) 94.0 H Band Neutrophils % 2.0 Lymphocytes % (Manual) 4.0 L Abs Neuts (Manual) 02688 H Abs Lymphs (Manual) 1548 Abs Monocytes (Manual) 0 Absolute Eos (Manual) 0 Abs Basophils (Manual) 0 Nucleated RBCs # 1 Anisocytosis 1+ RBC Morph Comment Test not indicated Sodium 139 Potassium 3.2 L Chloride 105 Carbon Dioxide 21 Anion Gap 13 H BUN 16 Creatinine 0.61 GFR Calculation > 60 Random Glucose 126 H Lactic Acid 2.5 H* Calcium 9.70 Magnesium 1.7 L Prealbumin 15.0 L Amylase 17 L Lipase 40 Procalcitonin 0.25 Urine Color Urine Appearance Urine pH Ur Specific [place] Urine Protein Urine Glucose (UA) Urine Ketones Urine Blood Urine Nitrite Urine Bilirubin Urine Urobilinogen Ur Leukocyte Esterase U Hyaline Cast (Auto) Urine RBC Ur WBC Total Counted Ur Squamous Epith Cells Ur Renal Epithelial Cell Urine Mucus (Auto) Ur Culture Indicated? Urine Opiates Screen Ur Oxycodone Screen Ur Barbiturates Screen Ur Phencyclidine Scrn Ur Amphetamines Screen U Benzodiazepines Scrn Urine Cocaine Screen U Cannabinoids Screen Drug Screen Comment WBC 42.9 H* RBC 4.90 Hgb 16.7 H Hct 47.6 MCV 97.1 H MCH 34.0 H MCHC 35.0 RDW 18.7 H Plt Count 346 Neutrophils % (Manual) Band Neutrophils % Lymphocytes % (Manual) Abs Neuts (Manual) Abs Lymphs (Manual) Abs Monocytes (Manual) Absolute Eos (Manual) Abs Basophils (Manual) Nucleated RBCs # Anisocytosis RBC Morph Comment Sodium Potassium Chloride Carbon Dioxide Anion Gap BUN Creatinine GFR Calculation Random Glucose Lactic Acid 3.7 H* Calcium Magnesium Prealbumin Amylase Lipase Procalcitonin Urine Color Yellow Urine Appearance Cloudy Urine pH 7.0 Ur Specific [place] 1.021 Urine Protein 20 mg/dl Urine Glucose (UA) 30 mg/dL Urine Ketones Negative Urine Blood >1.0 mg/dl Urine Nitrite Negative Urine Bilirubin 2 mg/dL Urine Urobilinogen >10.0 mg/dl Ur Leukocyte Esterase 75 Pati/uL U Hyaline Cast (Auto) 3-5 H Urine RBC >100 H Ur WBC Total Counted 21-50 H Ur Squamous Epith Cells None Ur Renal Epithelial Cell 0-5 Urine Mucus (Auto) Present Ur Culture Indicated? Yes Urine Opiates Screen Negative Ur Oxycodone Screen Negative Ur Barbiturates Screen Negative Ur Phencyclidine Scrn Negative Ur Amphetamines Screen Negative U Benzodiazepines Scrn Negative Urine Cocaine Screen Negative U Cannabinoids Screen Positive H Drug Screen Comment WBC RBC Hgb Hct MCV MCH MCHC RDW Plt Count Neutrophils % (Manual) Band Neutrophils % Lymphocytes % (Manual) Abs Neuts (Manual) Abs Lymphs (Manual) Abs Monocytes (Manual) Absolute Eos (Manual) Abs Basophils (Manual) Nucleated RBCs # Anisocytosis RBC Morph Comment Sodium Potassium 3.5 L Chloride Carbon Dioxide Anion Gap BUN Creatinine GFR Calculation Random Glucose Lactic Acid 2.5 H* 3.0 H* Calcium Magnesium Prealbumin Amylase Lipase Procalcitonin Urine Color Urine Appearance Urine pH Ur Specific [place] Urine Protein Urine Glucose (UA) Urine Ketones Urine Blood Urine Nitrite Urine Bilirubin Urine Urobilinogen Ur Leukocyte Esterase U Hyaline Cast (Auto) Urine RBC Ur WBC Total Counted Ur Squamous Epith Cells Ur Renal Epithelial Cell Urine Mucus (Auto) Ur Culture Indicated? Urine Opiates Screen Ur Oxycodone Screen Ur Barbiturates Screen Ur Phencyclidine Scrn Ur Amphetamines Screen U Benzodiazepines Scrn Urine Cocaine Screen U Cannabinoids Screen Drug Screen Comment WBC RBC Hgb Hct MCV MCH MCHC RDW Plt Count Neutrophils % (Manual) Band Neutrophils % Lymphocytes % (Manual) Abs Neuts (Manual) Abs Lymphs (Manual) Abs Monocytes (Manual) Absolute Eos (Manual) Abs Basophils (Manual) Nucleated RBCs # Anisocytosis RBC Morph Comment Sodium Potassium Chloride Carbon Dioxide Anion Gap BUN Creatinine GFR Calculation Random Glucose Lactic Acid 3.5 H* 2.7 H* Calcium Magnesium Prealbumin Amylase Lipase Procalcitonin Urine Color Urine Appearance Urine pH Ur Specific [place] Urine Protein Urine Glucose (UA) Urine Ketones Urine Blood Urine Nitrite Urine Bilirubin Urine Urobilinogen Ur Leukocyte Esterase U Hyaline Cast (Auto) Urine RBC Ur WBC Total Counted Ur Squamous Epith Cells Ur Renal Epithelial Cell Urine Mucus (Auto) Ur Culture Indicated? Urine Opiates Screen Ur Oxycodone Screen Ur Barbiturates Screen Ur Phencyclidine Scrn Ur Amphetamines Screen U Benzodiazepines Scrn Urine Cocaine Screen U Cannabinoids Screen Drug Screen Comment Diagnostic Data: 05/13/25 07:42 Chest 1 View Portable Xray [XR Chest 1 View Portable] Urgent 05/13/25 09:50 CT Chest Abdomen Pelvis WO Routine 05/13/25 12:43 US Abdomen Complete [id number] Urgent Assessment AND Plan (1) Sepsis: Qualifiers: Sepsis acute organ dysfunction status: unspecified Sepsis type: sepsis due to unspecified organism Qualified Code(s): A41.9 - Sepsis, unspecified organism (2) Diverticulitis: (3) Chronic pancreatitis: Qualifiers: Pancreatitis type: alcohol induced Qualified Code(s): K86.0 - Alcohol-induced chronic pancreatitis (4) Alcohol withdrawal: Qualifiers: Complication of substance-induced condition: with delirium Qualified Code(s): F10.931 - Alcohol use, unspecified with withdrawal delirium (5) Alcoholism: Plan: CIWA scale (6) Sinus tachycardia: Plan DAILY ICU EVENTS: 05/14-transfer to ICU after increased encephalopathy, leukocytosis, tachycardic, tachypnea. ID on consult. Abd tender and guarded to palpation. Pt obtunded after [address] abd/pelvis ordered. Surgery consulted due to concerns for bowel perforation or other pathology. Pt intubated for airway protection. IV atb changed back to Zosyn. CURRENT PLAN: Critical Care Checklist Analgesia: [N/A ] Sedation: [ precedex] Vasoactive Infusions: [ N/A ] De-escalation of Antibiotics: [ zosyn ] VTE Prophylaxis: [ SCDs] PUD prophylaxis: [ Not indicated at this time] Bowel prophylaxis: Last BM [ ] Nutrition: [NPO ] IV Fluids: [LR 100/hr] Glycemic Control: [ N/A ] AM Labs/Imaging: [Ordered ] Daily Sedation Holiday: [N/A ] SBT Readiness: [ N/A] Head of Bed: [ > 30 degrees] PT/OT: [ N/A ] Case Man/Social Work: [N/A] Spiritual Care/Palliative/Ethics: [N/A] Family Update: Critical Care total time in minutes: 55 cc: Chel Cleveland CNP; Jack Miller MD; Tay Camara MD Dictated by: Chel Cleveland CNP on 05/14/25 0306 Entered by: Chel Cleveland CNP on 05/14/25 030 Report Signed by: Chel Cleveland CNP on 05/14/25 0758 <<Signature on File>> <Electronically signed by Chel Cleveland CNP> Report Signed by: on METER GLUCOSE Collected: 5:12 PM Status: F Source: [facility] TYPE CODE TESTS RESULT OUT OF RANGE REFERENCE UNITS LAB L702.1000 Meter Glucose 152 High 70-110 mg/dl Performed By: #### L702.1000 #### Main Laboratory ([facility]) [address] [place] [address] Regan Sahni MD LACTIC ACID Collected: 5 4:51 PM Status: F Source: [facility] TYPE CODE TESTS RESULT OUT OF RANGE REFERENCE UNITS LAB L401.4160 Lactic Acid 1.2 Normal 0.5-2.0 mmol/L Performed By: #### L401.4160 #### Main Laboratory ([facility]) [address] [place] [address] Regan Sahni MD PROCEDURE NOTE - GENERAL Observed: 05/14 4:05 PM Status: F Source: [facility] Medical Records Patient: DIONNA CONCEPCION [address] : 1975 [place], [place] [address] Location: ICU [phone] Unit #: [id number] Procedure Note - General Nathan Ramos (ICU) POWER BALLAST MACHINE OPERATOR Service Dt/Tm: 05/14/25 1607 Date of Procedure: 05/14/25 Pre-Procedure Diagnosis: [Septic shock] Post-Procedure Diagnosis: Same Performing Physician: Nathan Ramos (ICU), POWER BALLAST MACHINE OPERATOR Was Dyer Helper Used: No Procedure Performed: Right IJ Central Line Placement Findings: Post-Procedure Diagnosis Confirmed Type of Anesthesia: Local Estimated Blood Loss: <5 ml Medications: [Lidocaine 1%] Disposition of Specimen: None Complications: None Consent: The risks, benefits and alternatives to the procedure were explained in detail. The patient/patient's medical claims representative demonstrated understanding and consented for the procedure. Details of Procedure: Time out was performed. Patient was positioned in appropriate position. Patient is prepped and draped in the normal sterile fashion. Lidocaine was used to anesthetize the area. Ultrasound guidance was used to aid in locating the blood vessel. Using a seldinger technique the blood vessel was located and the needle was inserted into the blood vessel. The guide-wire was then advanced through the needle, while watching for ventricular ectopy. The needle was then removed. Using the scalpel blade a small knick was made in the skin and the skin dilator was used to dilate over the wire. The dilator was then removed and the central line catheter was placed over the wire. The wire was then removed and all three ports of the catheter flushed without difficulty. The catheter was secured in place with sutures, antimicrobial dressing is then applied. The patient tolerated the procedure well. Chest X-ray has been ordered. Recommendations: [Okay to use] Entered by: Nathan FonsecaICU)EMMA on 05/14/25 160 Report Signed by: Nathan FonsecaICU) Rachel CARTER on 05/14/25 1605 <<Signature on File>> <Electronically signed by Nathan FonsecaICU) EMMA> Report Signed by: on STATUS NOTE/UPDATE Observed: 05/14/2025 3:50 PM Status: F Source: [facility] Medical Records Patient: DIONNA CONCEPCION [address] : 1975 [place], [place] [address] Location: ICU [phone] [facility]: [id number] Status Note/Update Nathan FonsecaICU) EMMA Service Dt/Tm: 05/14/25 3388 Note: Worsening septic shock in the setting of acute ascending cholangitis. Continue broad-spectrum antibiotics. Consult GI for evaluation of ERCP, sent for MRCP today. Uptrending vasopressor needs, vasopressin added and hydrocortisone started due to refractory septic shock. Severe metabolic acidosis currently compensated with a minute ventilation of 12, changed vent settings to backup management elation of 10. Trend blood gases. Intubated due to worsening encephalopathy, repeat head CT without evidence of hemorrhagic conversion of right MCA infarct. Worsening hypotension after switching to propofol infusion, changed to Versed which will also treat his alcohol withdrawal. Additional critical care time 65 minutes Entered by: Nathan Ramos (ICU)EMMA on 05/14/25 1545 Report Signed by: Nathan (ICU) Rachel CARTER on 05/14/25 1550 <<Signature on File>> <Electronically signed by Nathan Ramos (ICU) EMMA> Report Signed by: on CASE MANAGEMENT DAILY NOTE Observed: 07/2025 3:03 PM Status: F Source: [facility] Case Management Patient: DIONNA CONCEPCION[address] : 1975 [place], [place] [address] Location: ICU [phone] Unit #: [id number] Case Management Daily Note Sonja Mcmahan Service Date: 05/14/25 Case Mgmt Daily Note - Plan of Care Wood Drilling Machine Operator Agrees with Attending and Consult Plan: Yes - Patient Preferences AND Goals What is the patient's preference?: Services to be Determined Recommended acute discharge goals: Services to be Determined - Hospital Stay Days Day 1 Comment: 05/11 - Spoke with patient at bedside. Patient has Pavan Huynh. PCP is Pam Camara. director of player personnel is his father, Dionna. [facility]. Denies services, DME. He is independent of ADLS and drives. He lives with his brother and father in a 1 story home with no steps to enter. Denies LW/DPOA. Per primary nurse, Jenni, she states that EMS reported that family stated patient has been depressed and having trouble with his left side weakness from his stroke 2 months ago. Also states he has been falling at home. Wood Drilling Machine Operator: Ana Snyder, RN Day 2 Comment: 05/12 - Spoke with pt. MRI completed and pending results. Neuro following. PT/OT ordered and recommended IPR. Rehab consulted to review case and waiting on response. Wood Drilling Machine Operator: Stever,Shelbi N Day 3 Comment: 05/13 Dispo pending medical course. IPR following, c/s placed 05/12. MRI B (-) for acute CVA. WBC 42.9. Lactic 3.7. BC/UA/Sputum Cx. IV Rocephin/IVF. PT/OT. Wood Drilling Machine Operator: Jimena Carcamo, RN Day 4 Comment: 05/14: Patient transferred to ICU overnight. Intubated. PEEP 5. FiO2 40%. Propofol. Versed. Levo. Vaso. IVP Solu Cortef QID. Seizure precautions. WBC 36.5. 05/13 blood cultures pending. IV unasyn Q6. ID following. MRCP today. Surgery following. SW d/t alcohol abuse. Needs TBD pending medical medical course. Wood Drilling Machine Operator: Sonja Mcmahan - Respiratory Equipment Does the patient use/have any of these devices at home?: N/A - * L * Length of Stay LOS (Including day of Admission and Discharge): 3 LOS Score: 3 - * A * Acuity on Admission ER Provider if admitted from ER (view): RGMAXO Was patient admitted to hospital via Emergency Dept? Score: 3 - * C * Comorbidities Select All Conditions that Apply: Cerebral Disease (Any previous stroke or transient ischemic attack) Comorbidities Total Score: 1 - * E * Emergency Department Visits # of ER visits,6mos prior to admit,excl this admits ER visit: 0 Enter this number or 4 (whichever is smaller): 0 - LACE SCORE LACE Score: 7 - ANTICIPATED DISCHARGE Anticipated Discharge Date: 05/19/25 Entered by: Sonja Mcmahan on 05/14/25 0840 Report Signed by: Sonja Mcmahan on 05/14/25 1503 <<Signature on File>> <Electronically signed by Sonja Mcmahan> Co-Signed by: on SOCIAL WORK DAILY NOTE Observed: 025 2:58 PM Status: F Source: [facility] National Recruiter Patient: DIONNA CONCEPCION [address] : 1975 [place], [place] [address] Location: ICU [phone] Unit #: [id number] Social Work Daily Note Yeimy SALCEDO, AUTOMOBILE RENTAL AGENT Service Date: 05/14/25 Daily Note - * Psychosocial Assessment * I have reviewed nursing and case management psychosocial information.: Yes - * Hospital Stay Days * Day 1 Note: 05/14/2025: c/s for Substance Abuse Screening. Tad Jose Rauletter. CIWA. +tox for cannabinoids on admission. Hx of alcohol abuse. Enecphalopathy. Pt intubated overnight. National Recruiter to follow peripherally to discuss with pt when medically appropriate. Top Case Assembler: Yeimy Shah MSW, AUTOMOBILE RENTAL AGENT - * Requested Intvs/Referrals * Top Case Assembler I Referrals: Substance Abuse Screening - Community Services/Interventions Substance Use Screening: Initiated - * HEALTHCARE DECISIONS * Living Will: Unknown Durable Power of Cable Splicer Helper for Health Care: No Directive, No SS Referral State [facility] DNR Comfort Care: No Directive, No SS Referral [facility] DNR Comfort Care Arrest: No Directive, No SS Referral Entered by: DENISSE Abreu, KARLA on 05/14/25 1139 Report Signed by: Yeimy Shah on 05/14/25 1458 <<Signature on File>> <Electronically signed by KARLA Ellis> Report Signed by: on BASIC METABOLIC,NON-FASTING Collected: 05/14/2025 1:44 PM Status: F Source: [facility] TYPE CODE TESTS RESULT OUT OF RANGE REFERENCE UNITS LAB L400.1400 Sodium 139 Normal 135-145 mEq/L LAB L400.1500 Potassium 3.4 Low 3.6-5.0 mEq/L LAB L400.1600 Chloride 112 High 101-111 mEq/L LAB L400.1700 Carbon Dioxide 18 Low 21-32 mEq/L LAB L400.1800 Anion Gap 9 Normal 4-12 LAB L400.1820 Glucose 112 High 70-110 mg/dL LAB L400.1835 BUN 24 High 7-20 mg/dL LAB L400.1840 Creatinine 1.16 Normal 0.60-1.30 mg/dL LAB L400.1845 GFR Calculation > 60 Normal Result Comment: Chronic Kidn ey Disease stages by NKDF Stage eGFR I >90 II 60-89 III 30-59 IV 15-29 V <15 or dialysis Note: Information regarding the eGFR equation used can be found at https://www.kidney.org/kkxe-tnyti-cgwczopx. AGE(years) AVERAGE GFR 50-59 93 ml/min/1.73 square meters Note:This result is normalized to 1.73 square meter body surface area. Height and weight are not factored. LAB L400.2100 Calcium 7.80 Low 8.8-10.5 mg/dL Performed By: #### L400.5100 , L400.0152 #### Main Laboratory ([facility]) [address] [place] [address] Regan Sahni MD MAGNESIUM Collected: 5 1:44 PM Status: F Source: [facility] TYPE CODE TESTS RESULT OUT OF RANGE REFERENCE UNITS LAB L400.5100 Magnesium 1.9 Normal 1.8-2.5 mg/dL Performed By: #### L400.5100 , L400.0152 #### Main Laboratory ([facility]) [address] [facility] [place] [address] Regan Sahni MD LACTIC ACID Collected: 5 1:02 PM Status: F Source: [facility] TYPE CODE TESTS RESULT OUT OF RANGE REFERENCE UNITS LAB L401.4160 Lactic Acid 2.3 High alert 0.5-2.0 mmol/L Result Comment: Critical Res ult S_LAC:2.3 Called to and read back by: BERNICE BRYANT RN at: 05/14/2025 13:45:54 by:PMAMST Performed By: #### L401.4160 #### Main Laboratory ([facility]) [address] [place] [address] Regan Sahni MD ARTERIAL BLOOD GAS Collected: 5 12:54 PM Status: F Source: [facility] TYPE CODE TESTS RESULT OUT OF RANGE REFERENCE UNITS LAB L901.96489 pH 7.42 Normal 7.35-7.45 LAB L901.45916 PCO2 25 Low 35-45 mmHg LAB L901.47093 PO2 82 Normal 80-105 mmHg LAB L901.64300 HCO3 16.1 Low 22-26 mmol/L LAB L901.34169 Base Excess -8 Low -2-3 mmol/L LAB L901.99071 O2 Saturation 97 Normal 95-98 % LAB L901.17476 ABG Drawn By Daryl Gruber Normal LAB L902.83466 ABG Draw Site L Radial Normal LAB L902.23405 ABG Device Vent Normal LAB L902.00921 FIO2 0.40 Normal LAB L902.03596 Unit Notified? Yes Normal LAB L902.71488 ABG MODE AC Normal LAB L902.06801 VT 500 Normal LAB L902.16693 RR 20 Normal LAB L902.73733 PEEP 5.0 Normal Performed By: #### L901.0000 0 #### Main Laboratory ([facility]) [address] [place] [address] Regan Sahni MD METER GLUCOSE Collected: 11:07 AM Status: F Source: [facility] TYPE CODE TESTS RESULT OUT OF RANGE REFERENCE UNITS LAB L702.1000 Meter Glucose 77 Normal 70-110 mg/dl Performed By: #### L702.1000 #### Main Laboratory ([facility]) [address] [place] [address] Regan Sahni MD XR CHEST 1 VIEW PORTABLE Observed: 05/14 10:05 AM Status: F Source: [facility] Radiology Department Patient: DIONNA CONCEPCION [address] : 1975 Sex: Mirta [place] [address] Location: ICU [phone] Unit #: [id number] Ordering Phys: Nathan Ramos (ICU) POWER BALLAST MACHINE OPERATOR Exam Date: 05/14/25 Exam: MAIN XR Chest 1 View Portable Result: See Report STUDY: X-RAY CHEST REASON FOR EXAM: Male, 49 years old. central line placement TECHNIQUE: AP COMPARISON: 05/14/2025. FINDINGS: Endotracheal and esophagogastric tubes remain stable. Right jugular central venous catheter has been placed with tip overlying the lower SVC. EKG leads project over the chest. No airspace consolidation. There is no demonstrated pleural abnormality. Normal size cardiac silhouette. Normal mediastinum and mayelin. Normal visualized pulmonary arteries. Normal visualized aortic arch and descending thoracic aorta. No acute bony process. There is no demonstrated abnormality of the visualized soft tissue structures of the upper abdomen. IMPRESSION: 1. Right jugular central venous catheter. No pneumothorax. cc: Nathan (ICU) Rachel CARTER; Tay Camara MD Dictated by: Nathan Epstein MD on 05/14/251114 Transcribed by: Nathan Epstein on 05/14/251114 Report Signed by: Nathan Epstein MD on 05/14/251114 ARTERIAL BLOOD GAS Collected: 9:41 AM Status: F Source: [facility] TYPE CODE TESTS RESULT OUT OF RANGE REFERENCE UNITS LAB L901.01603 pH 7.45 Normal 7.35-7.45 LAB L901.05059 PCO2 18 Low alert 35-45 mmHg LAB L901.00740 PO2 96 Normal 80-105 mmHg LAB L901.68066 HCO3 12.3 Low 22-26 mmol/L LAB L901.04111 Base Excess -12 Low -2-3 mmol/L LAB L901.45405 O2 Saturation 98 Normal 95-98 % LAB L901.10772 ABG Drawn By Daryl Gruber Normal LAB L902.15576 ABG Draw Site L Radial Normal LAB L902.47336 ABG Device Vent Normal LAB L902.20958 FIO2 0.40 Normal LAB L902.04847 Unit Notified? Yes Normal LAB L902.98121 ABG MODE AC Normal LAB L902.09789 VT 450 Normal LAB L902.12086 RR 16 Normal LAB L902.59199 PEEP 5.0 Normal Performed By: #### L901.0000 0 #### Main Laboratory ([facility]) [address] [place] [address] Regan Sahni MD MRI GALLBLADDER W/O CONTRAST Observed: 0 05/14/2025 8:51 AM Status: F Source: [facility] Radiology Department Patient: DIONNA CONCEPCION [address] : 1975 Sex: [place] [address] Location: [facility] [phone] Unit #: [id number] Ordering Phys: Emeka Acosta MD Exam Date: 05/14/25 Exam: MRI MRI Gallbladder w/o Contrast Result: See Report STUDY: MR CHOLANGIOPANCREATOGRAPHY (MRCP) REASON FOR EXAM: Male, 49 years old. CBD dilation TECHNIQUE: Standard MRCP technique was utilized. Three-dimensional reconstruction images performed of the biliary system at an independent workstation and reviewed at time of dictation. Limited by motion artifact. COMPARISON: CT 05/24/2025 FINDINGS: MRCP: Gall Bladder: No gallbladder wall thickening. No pericholecystic fluid. Cystic duct: Cystic duct was not well visualized. Intrahepatic ducts: Normal visualized intrahepatic ducts with no demonstrated fixed filling defect, dilation or stricture. Common hepatic duct: Nondilated without filling defects/choledocholithiasis.. Common bile duct: There is a filling defect in the lower common duct just prior to the ampulla on image 16 of series 2 measuring 5 mm. The distal common duct measures 7.8 mm.. Pancreatic duct: Normal with no demonstrated fixed filling defect, dilation or stricture. IMPRESSION: 1. Lower common duct choledocholithiasis with mild lower ductal dilation. No intrahepatic bile duct dilation. cc: Emeka Acosta MD; Tay Camara MD Dictated by: Nathan Epstein MD on 05/14/25 1233 Transcribed by: Nathan Epstein on 05/14/25 1236 Report Signed by: Nathan Epstein MD on 05/14/25 1236 LACTIC ACID Collected: 8:33 AM Status: F Source: [facility] TYPE CODE TESTS RESULT OUT OF RANGE REFERENCE UNITS LAB L401.4160 Lactic Acid 3.5 High alert 0.5-2.0 mmol/L Result Comment: Critical Res ult S_LAC:3.5 Called to and read back by: SILVINA JUNG RN at: 05/14/2025 09:28:53 by:PMAMST Performed By: #### L401.4160 #### Main Laboratory ([facility]) [address] [place] [address] Regan Sahni MD US GALLBLADDER (RUQ) Observed: 6:53 AM Status: F Source: [facility] Radiology Department Patient: DIONNA CONCEPCION [address] : 1975 Sex: Mirta [place] [address] Location: [facility] [phone] Unit #: [id number] Ordering Phys: Emeka Acosta MD Exam Date: 05/14/25 Exam: US US Gallbladder (RUQ) Result: See Report EXAM: US abdomen, limited, right upper quadrant. HISTORY: ruq pain, confusion, leukocytosis TECHNIQUE: US Abdomen RUQ (limited) COMPARISON: Abdomen pelvis CT of this same date. Abdominal ultrasound of 05/13/2025. LIMITATIONS: Bowel gas. Inability of the patient to cooperate. LIVER Size: Normal. Right hepatic lobe measures 15.6 cm in length. Masses: 2 tiny incidental simple cysts. Contour: Normal. Echotexture: Normal. Bile ducts: Normal. Portal veins: Normal. Hepatopedal flow. Visualized hepatic veins are also patent. GALLBLADDER Size: Gallbladder remains elongated and mildly distended, measuring 11 x 4.9 x 4.4 cm in diameter; the gallbladder measured 8.7 x 4.2 x 3.7 cm on the prior study. Stones/sludge: No gallstones. Minimal gallbladder sludge. Wall thickness: Normal. Gallbladder wall measures 2.6 mm in thickness. Pericholecystic fluid: None. Sonographic Flowers sign: Negative. EXTRAHEPATIC BILE DUCTS: Common bile duct measures up to 6.3 mm in diameter as compared with 3.4 mm on the prior study. RIGHT KIDNEY: Right kidney measures 10.6 cm in length. No hydronephrosis. ASCITES: None. PLEURAL EFFUSIONS: None. OTHER: Pancreas was obscured by bowel gas. IMPRESSION: Increasing gallbladder distention. Minimal gallbladder sludge. No gallstones or gallbladder wall thickening. Increasing common bile duct caliber which is now borderline dilated, measuring 6.3 mm in diameter. Electronically Signed: Gordon Ayers MD at 8:01 EDT , cc: Emeka Acosta MD; Tay Camara MD Dictated by: Gordon Ayers MD on 05/14/25 08 Transcribed by: Gordon Ayers MD on 05/14/25800 Report Signed by: Gordon Ayers MD on 05/14/25 08 CONSULTATION Observed: 05/14/2025 6:51 AM Status: F Source: [facility] Medical Records Patient: DIONNA CONCEPCION [address] : 1975 [place], [place] [address] Location: ICU [phone] Unit #: [id number] Consultation Emeka Acosta MD Service Date: 05/14/25 History of Present Illness Date of Consultation: 05/14/25 Time Seen: 04:50 Referring Physician: Chel Cleveland Reason for Consultation: abdominal distention, leukocytosis, lactic acidosis History of Present Illness: DIONNA CONCEPCION is a 49 yr old M who was admitted on 05/12/25 for RT MCA INFARCT/LT SIDED WEAKNESS. Patient is a 49-year-old gentleman with multiple medical comorbidities including history of CVA with residual left-sided weakness, alcoholism, hypertension, hyperlipidemia smoker who originally presented approximately 3 days ago to the emergency department. Patient has had a decline in his health status since January rates are developing weakness did not sound as though he obtained care at that point imaging in the emergency department in the hospital demonstrates likely subacute versus chronic right-sided infarct leaving him with his residual weakness which neurology has seen. At this point they believe it is likely chronic 2. His echo was within normal limits. There was concern for alcohol withdrawal symptoms and was placed on CIWA. It sounds as though patient was having worsening abdominal pain and nausea and vomiting over the last 1 to 2 days. He was evaluated in the ICU at which point he was unable to respond to questions and barely respond to painful stimuli. It sounds as though his had multiple falls at home. Allergies/Adverse Reactions No Known Drug Allergies Allergy (Verified 05/11/25 15:01) Home Medications amlodipine 10 mg tablet 10 mg PO DAILY 05/11/25 [Confirmed 05/11/25] aspirin 81 mg chewable tablet 1 tab PO DAILY 05/11/25 [Confirmed 05/11/25] Past Medical History Medical History (Updated 05/14/25 @ 06:47 by Emeka Acosta MD) Smoker Hypertriglyceridemia Hypertension CVA (cerebral vascular accident) left sided defecits Past Surgical History Surgical History (Updated 05/14/25 @ 06:38 by Emeka Acosta MD) No pertinent past surgical history Social History Caffeine Amount: 1-2/Day Current Type of Alcohol: Beer Current Alcohol Amount: Socially/Occasionally Smoking Status: Heavy tobacco smoker Type of Tobacco: Cigarettes Smoking Amount: 1 pack per day Family History Other No pertinent family history Review of Systems Unable to do a review of systems due to: Sedated and Unresponsive Physical Exam Last Vital Signs Temp Pulse Resp BP Pulse Ox O2 Flow RateFiO2 99.5 F 116 H 27 H 137/96 H 97 2 20 05/14/25 03:05/14/25 05:05/14/25 05:05/14/25 03:05/14/25 05:05/14/25 03:05/14/25 05: 15 51 51 15 51 57 21 Height (Ft AND In) 5 ft 7 in Admitting (IV Pump) Weight 61.4 kg Actual Weight (Kg) 61.4 kg General Appearance: No Alert Eyes: PERRLA (pupils equally round, reactive), EOMI (left gaze preference) and Other (sclera icteric) ENT: No Oral Mucosa Moist (dry mucus membranes, poor dentition) Neck: No JVD or Thyromegaly Skin: Pallor; No Color Normal Cardiovascular: Tachycardic Rhythm; No Click or Murmur Left Lung: Left Upper Lobe: Clear and Left Lower Lobe: Diminished Right Lung: Right Upper Lobe: Clear, Right Middle Lobe: Clear and Right Lower Lobe: Diminished Lungs: Respiratory Distress (tachypneic) Abdomen: Semi-firm (distended, diffuse TTP mid abdomen and RUQ), Tender to palpation and Hypoactive BS Extremities: Pedal Pulses and Varicosities Neurologic: Moves all extremities (moves all extremities to painful stimuli, left side weakness lower more than upper extremities) Psychological: Other (obtunded) Laboratory Last Values WBC 36.4 th/cmm (4.4-10.5) H* 05/14/25 02:40 RBC 4.05 mil/cmm (4.50-6.00) L 05/14/25 02:40 Hgb 13.7 gm/dL (13.5-16.5) D 05/14/25 02:40 Hct 40.1 % (40.0-49.0) 05/14/25 02:40 MCV 99.1 CU DEIDRA (80-97) H 05/14/25 02:40 MCH 33.8 PG (27.5-33.0) H 05/14/25 02:40 MCHC 34.1 gm/dL (33.0-36.0) 05/14/25 02:40 RDW 18.9 % (12.0-16.0) H 05/14/25 02:40 Plt Count 237 th/cmm (150-400) 05/14/25 02:40 Neut % (Auto) 69.5 % (40-70) 05/11/25 15:14 Lymph % (Auto) 18.6 % (15-45) 05/11/25 15:14 Mcdonough % (Auto) 10.3 % (2-10) H 05/11/25 15:14 Eos % (Auto) 0.8 % (0-6) 05/11/25 15:14 Baso % (Auto) 0.8 % (0-2) 05/11/25 15:14 Nucleat RBC Rel Count 0.2 /100 WBC (<1) 05/11/25 15:14 Absolute Neuts (auto) 9300 /cmm (2938-2377) H 05/11/25 15:14 Absolute Lymphs (auto) 2500 /cmm (0941-8475) 05/11/25 15:14 Absolute Monos (auto) 1400 /cmm (0-800) H 05/11/25 15:14 Absolute Eos (auto) 100 /cmm (0-500) 05/11/25 15:14 Absolute Basos (auto) 100 /cmm (0-200) 05/11/25 15:14 Neutrophils % (Manual) 90.0 % (40-70) H 05/14/25 02:40 Band Neutrophils % 5.0 % (2-6) 05/14/25 02:40 Lymphocytes % (Manual) 1.0 % (15-45) L 05/14/25 02:40 Monocytes % (Manual) 3.0 % (2-10) 05/14/25 02:40 Metamyelocytes % 1.0 % 05/14/25 02:40 Abs Neuts (Manual) 93578 /cmm (4894-8587) H 05/14/25 02:40 Abs Lymphs (Manual) 364 /cmm (4936-3810) L 05/14/25 02:40 Abs Monocytes (Manual) 1092 /cmm (0-800) H 05/14/25 02:40 Absolute Eos (Manual) 0 /cmm (0-500) 05/14/25 02:40 Abs Basophils (Manual) 0 /cmm (0-200) 05/14/25 02:40 Nucleated RBCs # 1 /100 WBC 05/13/25 04:55 Anisocytosis 1+ 05/14/25 02:40 RBC Morph Comment Test not indicated 05/14/25 02:40 PT 11.6 Sec (9.6-13.3) 05/11/25 15:14 INR 0.98 (0.9-1.2) 05/11/25 15:14 Sodium 139 mEq/L (135-145) 05/14/25 02:40 Potassium 4.0 mEq/L (3.6-5.0) 05/14/25 02:40 Chloride 111 mEq/L (101-111) 05/14/25 02:40 Carbon Dioxide 15 mEq/L (21-32) L 05/14/25 02:40 Anion Gap 13 (4-12) H 05/14/25 02:40 BUN 18 mg/dL (7-20) 05/14/25 02:40 Creatinine 0.86 mg/dL (0.60-1.30) 05/14/25 02:40 GFR Calculation > 60 (60-) 05/14/25 02:40 Random Glucose 130 mg/dL (70-110) H 05/14/25 02:40 Hemoglobin A1c 5.0 % (4.4-6.4) 05/11/25 20:10 Estim Average Glucose 97 mg/dL 05/11/25 20:10 Lactic Acid 2.8 mmol/L (0.5-2.0) H* 05/14/25 05:05 Calcium 8.50 mg/dL (8.8-10.5) L 05/14/25 02:40 Magnesium 1.4 mg/dL (1.8-2.5) L 05/14/25 02:40 Total Bilirubin 5.2 mg/dL (0.2-1.0) H D 05/14/25 02:40 Direct Bilirubin 3.6 mg/dL (0.1-0.2) H 05/14/25 02:40 AST 313 IU/L (15-41) H D 05/14/25 02:40 ALT 308 IU/L (10-40) H D 05/14/25 02:40 Alkaline Phosphatase 347 IU/L (41-137) H D 05/14/25 02:40 Troponin I High Sens 6 ng/L (0-20) 05/11/25 15:14 Total Protein 6.4 g/dL (6.2-8.0) 05/14/25 02:40 Albumin 3.4 g/dL (3.5-5.0) L D 05/14/25 02:40 Albumin/Globulin Ratio 1.5 (1.5-2.5) 05/11/25 15:14 Prealbumin 15.0 mg/dL (16.0-38.0) L 05/13/25 04:54 Triglycerides 160 mg/dL (<150) H 05/11/25 20:10 Cholesterol 238 mg/dL (<200) H 05/11/25 20:10 LDL Cholesterol Direct 171 mg/dL (-100) H 05/11/25 20:10 VLDL Cholesterol, Calc 32 mg/dL (<39) 05/11/25 20:10 HDL Cholesterol 34 mg/dL (40-) L 05/11/25 20:10 LDL/HDL Ratio 5.0 (<3.1) H 05/11/25 20:10 Cholesterol/HDL Ratio 7.0 (4.0-5.0) H 05/11/25 20:10 Amylase 17 U/L (30-100) L 05/13/25 04:54 Lipase 40 IU/L (21-51) 05/13/25 04:54 Procalcitonin 0.25 ng/mL (-0.50) 05/13/25 04:54 TSH 1.879 mcIU/mL (0.490-4.670) 05/11/25 20:10 Urine Color Yellow 05/13/25 09:16 Urine Appearance Cloudy 05/13/25 09:16 Urine pH 7.0 (5.0-8.0) 05/13/25 09:16 Ur Specific [place] 1.021 (1.000-1.035) 05/13/25 09:16 Urine Protein 20 mg/dl (Negative) 05/13/25 09:16 Urine Glucose (UA) 30 mg/dL (Negative) 05/13/25 09:16 Urine Ketones Negative (Negative) 05/13/25 09:16 Urine Blood >1.0 mg/dl (Negative) 05/13/25 09:16 Urine Nitrite Negative (Negative) 05/13/25 09:16 Urine Bilirubin 2 mg/dL (Negative) 05/13/25 09:16 Urine Urobilinogen >10.0 mg/dl (0.2-1.0) 05/13/25 09:16 Ur Leukocyte Esterase 75 Pati/uL (Negative) 05/13/25 09:16 U Hyaline Cast (Auto) 3-5 /LPF H 05/13/25 09:16 Urine RBC >100 /HPF H 05/13/25 09:16 Ur WBC Total Counted 21-50 /HPF H 05/13/25 09:16 Ur Squamous Epith Cells None /HPF 05/13/25 09:16 Ur Renal Epithelial Cell 0-5 /HPF 05/13/25 09:16 Urine Mucus (Auto) Present 05/13/25 09:16 Ur Culture Indicated? Yes 05/13/25 09:16 Fecal Screen VRE (PCR) Negative (Negative) 05/14/25 04:06 Urine Opiates Screen Negative (Negative) 05/13/25 09:16 Ur Oxycodone Screen Negative (Negative) 05/13/25 09:16 Ur Barbiturates Screen Negative (Negative) 05/13/25 09:16 Ur Phencyclidine Scrn Negative (Negative) 05/13/25 09:16 Ur Amphetamines Screen Negative (Negative) 05/13/25 09:16 U Benzodiazepines Scrn Negative (Negative) 05/13/25 09:16 Urine Cocaine Screen Negative (Negative) 05/13/25 09:16 U Cannabinoids Screen Positive (Negative) H 05/13/25 09:16 Drug Screen Comment 05/13/25 09:16 Alcohol, Quantitative < 0.010 gm/dL 05/11/25 15:14 Specimen Source Nasopharyngeal Swab 05/12/25 20:50 Adenovirus (PCR) Not Detected 05/12/25 20:50 B. pertussis DNA (PCR) Not Detected 05/12/25 20:50 B.parapertussis DNA PCR Not Detected 05/12/25 20:50 C. pneumoniae DNA (PCR) Not Detected 05/12/25 20:50 Coronavirus OC43 (PCR) Not Detected 05/12/25 20:50 Coronavirus HKU1 (PCR) Not Detected 05/12/25 20:50 Coronavirus 229E (PCR) Not Detected 05/12/25 20:50 Coronavirus NL63 (PCR) Not Detected 05/12/25 20:50 Human Metapneumovir PCR Not Detected 05/12/25 20:50 Influenza A (RT-PCR) Not Detected 05/12/25 20:50 Influenza B (RT-PCR) Not Detected 05/12/25 20:50 M. pneumoniae (PCR) Not Detected 05/12/25 20:50 Parainfluenza 1 (PCR) Not Detected 05/12/25 20:50 Parainfluenza 2 (PCR) Not Detected 05/12/25 20:50 Parainfluenza 3 (PCR) Not Detected 05/12/25 20:50 Parainfluenza 4 (PCR) Not Detected 05/12/25 20:50 RSV (PCR) Not Detected 05/12/25 20:50 Entero/Rhino (PCR) Not Detected 05/12/25 20:50 SARS-CoV-2 (PCR) Not Detected 05/12/25 20:50 Imaging: Viewed Diagnostic Data: 05/13/25 07:42 Chest 1 View Portable Xray [XR Chest 1 View Portable] Urgent 05/13/25 09:50 CT Chest Abdomen Pelvis WO Routine 05/13/25 12:43 US Abdomen Complete [id number] Urgent 05/14/25 03:23 CT Abd/Pelvis W/O Cont [id number] Stat CAM Tool Confusion Assessment Method (CAM Tool) 1. Acute onset and fluctuating course Is there evidence of an acute change in mental status from the patient's baseline?: Yes Did the (abnormal) behavior fluctuate during the day, that is tend to come and go or increase and decrease in severity?: Yes 2. Inattention Did the patient have difficulty focusing attention, for example, being easily distractible or having difficulty keeping track of what was being said?: Yes 3. Disorganized Thinking Was the patient???s thinking disorganized or incoherent, such as rambling or irrelevant conversation, unclear or illogical flow of ideas, or unpredictable switching from subject to subject?: No 4. Altered Level Of Consciousness Would you rate the patient's level of consciousness as Vigilant (hyper alert), Lethargic (drowsy, easily aroused), Stupor (difficult to arouse), OR Coma (unarousable)?: Yes CAM Score Does the patient have a positive CAM score? (Yes to all questions under number 1 and 2, and Yes to question 3 or 4): Yes PRISME Did you utilize the PRISME method to identify, rule-out, and treat the possible causation of dementia?: No Assessment and Plan (1) Lactic acidosis: (2) Alcoholism: (3) Small bowel obstruction: (4) Hyperbilirubinemia: (5) Transaminitis: (6) Leukocytosis: Qualifiers: Leukocytosis type: bandemia Qualified Code(s): D72.825 - Bandemia (7) Sepsis: Qualifiers: Sepsis type: sepsis due to unspecified organism Sepsis acute organ dysfunction status: unspecified Qualified Code(s): A41.9 - Sepsis, unspecified organism (8) Fever: Qualifiers: Fever type: unspecified Qualified Code(s): R50.9 - Fever, unspecified (9) History of right MCA stroke: (10) Smoker: (11) Metabolic encephalopathy: (12) Acute respiratory failure: Qualifiers: Respiratory failure complication: unspecified whether with hypoxia or hypercapnia Qualified Code(s): J96.00 - Acute respiratory failure, unspecified whether with hypoxia or hypercapnia (13) Marijuana use: (14) Hypertension: Qualifiers: Hypertension type: primary hypertension Qualified Code(s): I10 - Essential (primary) hypertension (15) Hypertriglyceridemia: (16) Chronic pancreatitis: Qualifiers: Pancreatitis type: alcohol induced Qualified Code(s): K86.0 - Alcohol-induced chronic pancreatitis (17) Moderate protein malnutrition: (18) Sarcopenia: Plan Patient is a 49-year-old gentleman with a past medical history of hypertension, hyperlipidemia, marijuana abuse, alcohol abuse, smoker CVA who presents now with worsening abdominal distention nausea vomiting and what appears to be distal small bowel obstruction on CT. My concern is the patient has significant leukocytosis up to 40+ as well as a lactic acidosis and he is actively being resuscitated. The patient is not hypotensive however he does have encephalopathy which I believe is a combination of metabolic as well as possible medication induced. I have reviewed the CT scan that was obtained earlier this morning I believe there is a distal small bowel obstruction I did recommend that we repeat the scan with IV contrast to better elucidate the etiology I believe he has abdominal sepsis. This could be from necrotic small bowel and other differential includes cholangitis given he has right upper quadrant abdominal pain, hyperbilirubinemia, fever, altered mental status. In addition when I evaluated the patient he was minimally responsive to sternal rub and nailbed. In fact he did not move at all on the left nailbed on the lower extremity. We had to be very aggressive with a sternal rub in order for him to get to move anything. It did appear that he was aspirating at which point we elected to intubate him. Please see her procedure note for this. I would broaden his antibiotic coverage until we believe we have source control to include vancomycin for MRSA coverage as he has been in and out of the hospital as well as Zosyn for gram-negative rods and anaerobic coverage. Want to repeat the CT scan we may need to take him to the operating room for the small bowel versus further imaging for the biliary tree including considering ERCP versus MRCP. The patient has what appears to be a chronic protein calorie malnutrition and a pillars to be failing to thrive as an outpatient. We recommend IV fluid resuscitation with balanced crystalloid, broad-spectrum antibiotics, follow-up on CT scan discussed the plan of care with the ICU as well as the nursing staff. cc: Emeka Acosta MD; Tay Camara MD Dictated by: Emeka Acosta MD on 05/14/25627 Entered by: Emeka Acosta MD on 05/14/25627 Report Signed by: Emeka Acosta MD on 05/14/2550 <<Signature on File>> <Electronically signed by Emeka Acosta MD> Report Signed by: on ARTERIAL BLOOD GAS Collected: 6:49 AM Status: F Source: [facility] TYPE CODE TESTS RESULT OUT OF RANGE REFERENCE UNITS LAB L901.66019 pH 7.41 Normal 7.35-7.45 LAB L901.27606 PCO2 24 Low 35-45 mmHg LAB L901.32146 PO2 131 High 80-105 mmHg LAB L901.56260 HCO3 14.9 Low 22-26 mmol/L LAB L901.56097 Base Excess -10 Low -2-3 mmol/L LAB L901.58746 O2 Saturation 99 High 95-98 % LAB L901.57763 ABG Drawn By Jacqueline Rico Normal LAB L902.92704 ABG Draw Site L Radial Normal LAB L902.59736 ABG Device Vent Normal LAB L902.86568 FIO2 50.00 Normal LAB L902.32217 Unit Notified? Yes Normal LAB L902.97333 ABG MODE AC Normal LAB L902.52459 VT 450 Normal LAB L902.27985 RR 16 Normal LAB L902.96730 PEEP 5.0 Normal Performed By: #### L901.0000 0 #### Main Laboratory ([facility]) [address] [place] [address] HEAD WITHOUT CONTRAST [id number] Observed: 05/14/2025 5:42 AM Status: F Source: [facility] Radiology Department Patient: DIONNA CONCEPCION [address] 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 This CT exam was performed using one or more of the following dose reduction techniques: automated exposure control, adjustment of the mA and/or kV according to patient size, and/or use of iterative reconstruction technique. RADIATION DOSE: Total DLP: 1594 mGy-cm. COMPARISON: Cranial CT of 05/11/2025. Cranial MR of 05/12/2025. FINDINGS: BRAIN AND EXTRA-AXIAL SPACES: Findings of mild atrophy again noted with prominence of the cortical sulci, basal cisterns, sylvian fissures and ventricles. 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 A smaller area of encephalomalacia is again noted within the right lateral occipitotemporal gyrus. Review of the prior MR shows increased T2 hyperintensity within the periaqueductal ward matter, as well as within the region of the mamillary bodies and within the medial thalami adjacent to the third ventricle, highly suspicious for Wernicke encephalopathy. No acute infarction or parenchymal hemorrhage is identified. Mild patchy chronic small vessel ischemic changes are present within the deep white matter tracts. No intracranial mass or mass effect. Posterior fossa structures are unremarkable. BONES/JOINTS: Unremarkable. No discrete lytic or blastic abnormalities. VASCULATURE: Atherosclerotic calcification is present. No vascular hyperdensity. SINUSES: Unremarkable as visualized. Clear. MASTOID AIR CELLS: Unremarkable. Clear. ORBITS: Visualized globes, extraocular muscles, optic nerves and retrobulbar fat appear unremarkable. IMPRESSION: No hemorrhage or other acute findings in the head/brain. Review of the prior MR shows findings highly suspicious for Wernicke encephalopathy, which will typically respond to prompt administration of IV thiamine. Nonstandard communication protocol initiated and completed. N.B. : The above Results were Read Back by Gordon Ayers MD to Nathan Ramos NP, and understanding confirmed on 05/14/2025 07:47:08 (ET). Electronically Signed: Gordon Ayers MD at 7:49 EDT , Addendum Dictated by: Gordon Ayers MD on 05/14/25 at 0749 Transcribed by: Gordon Ayers MD on 05/14/25 at 0749 Report Signed by: Gordon Ayers MD on 05/14/25 0749 EXAM: CT HEAD WITHOUT INTRAVENOUS CONTRAST CLINICAL INDICATION: worsening ecephalopathy TECHNIQUE: Multiple axial images were obtained of the head without intravenous contrast. This CT exam was performed using one or more of the following dose reduction techniques: automated exposure control, adjustment of the mA and/or kV according to patient size, and/or use of iterative reconstruction technique. RADIATION DOSE: Total DLP: 1594 mGy-cm. COMPARISON: Cranial CT of 05/11/2025. Cranial MR of 05/12/2025. FINDINGS: BRAIN AND EXTRA-AXIAL SPACES: Findings of mild atrophy again noted with prominence of the cortical sulci, basal cisterns, sylvian fissures and ventricles. 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 A smaller area of encephalomalacia is again noted within the right lateral occipitotemporal gyrus. Review of the prior MR shows increased T2 hyperintensity within the periaqueductal ward matter, as well as within the region of the mamillary bodies and within the medial thalami adjacent to the third ventricle, highly suspicious for Wernicke encephalopathy. No acute infarction or parenchymal hemorrhage is identified. Mild patchy chronic small vessel ischemic changes are present within the deep white matter tracts. No intracranial mass or mass effect. Posterior fossa structures are unremarkable. BONES/JOINTS: Unremarkable. No discrete lytic or blastic abnormalities. VASCULATURE: Atherosclerotic calcification is present. No vascular hyperdensity. SINUSES: Unremarkable as visualized. Clear. MASTOID AIR CELLS: Unremarkable. Clear. ORBITS: Visualized globes, extraocular muscles, optic nerves and retrobulbar fat appear unremarkable. IMPRESSION: No hemorrhage or other acute findings in the head/brain. Review of the prior MR shows findings highly suspicious for Wernicke encephalopathy, which will typically respond to prompt administration of IV thiamine. Nonstandard communication protocol initiated and completed. N.B. : The above Results were Read Back by Gordon Ayers MD to Ntahan Ramos NP, and understanding confirmed on 05/14/2025 07:47:08 (ET). Electronically Signed: Gordon Ayers MD at 7:49 EDT , cc: Chel Cleveland POWER BALLAST MACHINE OPERATOR; Tay Camara MD Dictated by: Gordon Ayers MD on 05/14/2549 Transcribed by: Gordon Ayers MD on 05/14/2549 Report Signed by: Gordon Ayers MD on 05/14/25 0749 PROCEDURE NOTE - GENERAL Observed: 05/14 5:39 AM Status: F Source: [facility] Medical Records Patient: DIONNA CONCEPCION [address] : 1975 [place], [place] [address] Location: ICU [phone] Unit #: [id number] Procedure Note - General Emeka Acosta MD Service Dt/Tm: 05/14/25 0534 Date of Procedure: 05/14/25 Pre-Procedure Diagnosis: [obtunded, unable to protect airway] Post-Procedure Diagnosis: Same Performing Physician: Emeka Acosta MD Was Dyer Helper Used: No Procedure Performed: Intubation videolaryngoscopy 3 with 8.0 ETT Findings: Post-Procedure Diagnosis Confirmed Type of Anesthesia: etomidate, succinylcholine Estimated Blood Loss: <5 ml Medications: [etomidate, succinylcholine] Disposition of Specimen: None Complications: None apparent Consent: Due to the acuity unable to obtain consent from patient and the number for father/POA is out of service Details of Procedure: Time out was performed. Patient was positioned in appropriate position. After adequate sedation achieved with 20 mg of etomidate and succinylcholine 100 the video laryngoscope was used to visualize the vocal cords. The 8.0 ET tube was placed under direct visualization through the vocal cords. End tidal CO2 detector showed a color change. Equal and bilateral breath sounds appreciated on exam. 22 cm at the teeth. Patient tolerated the procedure well. Chest X-ray was ordered to confirm placement. Entered by: Emeka Acosta MD on 05/14/25 0534 Report Signed by: Emeka Acosta MD on 05/14/25 0539 <<Signature on File>> <Electronically signed by Emeka Acosta MD> Report Signed by: on CT ABD/PELVIS W/CONTRAST [id number] Observed: 05/14/2025 5:35 AM Status: F Source: [facility] Radiology Department Patient: DIONNA CONCEPCION [address] : 1975 Sex: [place], [place] [address] Location: ICU [phone] [facility] [id number] [id number] Ordering Phys: Chel Cleveland CNP Exam Date: 05/14/25 Exam: CT CT Abd/Pelvis W/Contrast [id number] Result: See Report HISTORY: acute liver failure, evaluate for bowel ischemia. TECHNIQUE: Helically acquired images were obtained of the abdomen and pelvis after the intravenous administration of 75 mL Omnipaque 300. A radiation dose optimization technique was used for this scan. 607 images. COMPARISON: Noncontrast CT same day. FINDINGS: LOWER CHEST: Mild dependent atelectasis with trace right pleural effusion again seen. BOWEL: Nasogastric tube tip in the distal gastric body. Duodenal diverticulum seen. Multiple dilated small bowel loops with distal transition zone again seen. No pneumatosis intestinalis. Orientation of the jejunum and cecum in the right upper quadrant similar to prior. Appendix nondilated. Colonic diverticulosis without focal inflammatory change observed. PERITONEUM: No gross free air or significant free fluid. Trace mesenteric edema. LIVER: Fatty infiltration with subcentimeter cysts. GALLBLADDER/BILIARY TREE: Persistent gallbladder distention. SPLEEN/PANCREAS/ADRENAL GLANDS: Unremarkable. KIDNEYS: No hydronephrosis. Subcentimeter cysts and indeterminate lesions measuring up to 9 mm on the left; no follow-up imaging indicated. VESSELS: No abdominal aortic aneurysm. Mild atherosclerosis. PELVIC ORGANS: Freeman catheter in the partially decompressed bladder. BONES: Degenerative change. IMPRESSION: Persistent small bowel obstruction. Unchanged gallbladder distention. Small cystic and indeterminate renal lesions. Recommend abdominal MRI (preferred) or CT without and with intravenous contrast within 6-12 months. Electronically Signed: Pinky Plascencia MD at 8:31 EDT Reading Location ID and State: [facility] / [place] Tel , Service support , cc: Chel Cleveland POWER BALLAST MACHINE OPERATOR; Tay Camara MD Dictated by: Pinky Plascencia MD on 05/14/25830 Transcribed by: Pinky Plascencia MD on 05/14/25830 Report Signed by: Pinky Plascencia MD on 05/14/25830 SPUTUM CULTURE/ SMEAR Observed: 05/14/20 5:30 AM Status: F Source: [facility] Gram stain result Few Segmented WBC's seen Few Nonsegmented WBC's seen Rare Gram positive cocci in pairs ORGANISM 1: Escherichia coli Amount of growth Few Comments No growth of normal ryan ORGANISM 2: Serratia marcescens Amount of growth Few Escherichia coli: REACTION Amikacin <=2 S Ampicillin 8 S Ampicillin/Sulbactam 4 S Aztreonam <=1 S Cefazolin <=4 S Cefepime <=1 S Ceftazidime <=1 S Ceftriaxone <=1 S Ciprofloxacin <=0.25 S Ertapenem <=0.5 S Gentamicin <=1 S Meropenem <=0.25 S Trimethoprim/Sulfamethoxazole <=20 S Serratia marcescens: REACTION Amikacin <=2 S Aztreonam <=1 S Cefazolin >=64 R Cefepime <=1 S Ceftazidime <=1 S Ceftriaxone <=1 S Ciprofloxacin <=0.25 S Ertapenem <=0.5 S Gentamicin <=1 S Meropenem <=0.25 S Trimethoprim/Sulfamethoxazole <=20 S Performed By: #### M130.0000 #### Main Laboratory ([facility]) [address] [place] [address] Regan Sahni MD XR CHEST 1 VIEW PORTABLE Observed: 05/14 5:25 AM Status: F Source: [facility] Radiology Department Patient: DIONNA CONCEPCION [address] : 1975 Sex: Mirta Schilling [place] [id number] Location: ICU [phone] Unit #: [id number] Ordering Phys: Chel Cleveland CNP Exam Date: 05/14/25 Exam: MAIN XR Chest 1 View Portable Result: See Report EXAM: XR CHEST, 1 VIEW CLINICAL INDICATION: ET placement. OG placement TECHNIQUE: Frontal view of the chest. COMPARISON: Portable chest radiograph of 05/23/2025. FINDINGS: LUNGS AND PLEURAL SPACES: Unremarkable. No consolidation or edema. No pneumothorax. No effusion. HEART: Unremarkable. Cardiac silhouette not enlarged. Normal pulmonary vasculature for technique. MEDIASTINUM: Central airways and mediastinal contour are unremarkable. BONES/JOINTS: Unremarkable. No acute fracture. SOFT TISSUES: Unremarkable. TUBES, LINES AND DEVICES: ET tube has been inserted in satisfactory position, with its tip projected approximately 4.3 cm above the anastasiia. OG tube has been inserted and extends into the stomach; sidehole lies within the gastric body while the distal tip is not included on the portable chest radiograph. IMPRESSION: Satisfactory ET tube and OG tube positioning. No acute pulmonary infiltrates or pneumothorax. Electronically Signed: Gordon Ayers MD at 7:54 EDT , cc: Chel Cleveland POWER BALLAST MACHINE OPERATOR; Tay Camara MD Dictated by: Gordon Ayers MD on 05/14/25753 Transcribed by: Gordon Ayers MD on 05/14/25753 Report Signed by: Gordon Ayers MD on 05/14/25753 LACTIC ACID Collected: 5:05 AM Status: F Source: [facility] TYPE CODE TESTS RESULT OUT OF RANGE REFERENCE UNITS LAB L401.4160 Lactic Acid 2.8 High alert 0.5-2.0 mmol/L Result Comment: Critical Res ult S_LAC:2.8 Called to and read back by: TIFFANY MONTAÑO RN at: 05/14/2025 05:45:49 by:SHEELA Performed By: #### L401.4160 #### Main Laboratory ([facility]) [address] [place] [address] Regan Sahni MD MRSA SCREEN, FEC Observed: 05/14/2025 4:06 AM Status: F Source: [facility] No growth of MRSA after 2 da ys. Performed By: #### M170.0170 #### Main Laboratory ([facility]) [address] [place] [address] Regan Sahni MD VRE SCREEN, RAPID Collected: 4:06 AM Status: F Source: [facility] TYPE CODE TESTS RESULT OUT OF RANGE REFERENCE UNITS LAB L800.5350 Fecal VRE Screen Negative Normal Negative Result Comment: Methodology: Nucleic Acid Amplification (Polymerase Chain Reaction,PCR) Performed By: #### L800.5350 #### Main Laboratory ([facility]) [address] [place] [address] ABD/PELVIS W/O CONT [id number] Observed: 0 05/14/2025 3:25 AM Status: F Source: [facility] Radiology Department Patient: DIONNA CONCEPCION [address] : 1975 Sex: Mir[place] [address] Location: ICU [phone] Unit #: [id number] Ordering Phys: Chel Cleveland [employer] Exam Date: 05/14/25 Exam: CT CT Abd/Pelvis W/O Cont [id number] Result: See Report ADDENDUM: EXAM: CT ABDOMEN AND PELVIS WITHOUT INTRAVENOUS CONTRAST CLINICAL INDICATION: leukocytosis/tachy/abd distension/firm/tender TECHNIQUE: Helically acquired images were obtained of the abdomen and pelvis without intravenous contrast. This CT exam was performed using one or more of the following dose reduction techniques: automated exposure control, adjustment of the mA and/or kV according to patient size, and/or use of iterative reconstruction technique. RADIATION DOSE: Total DLP: 698 mGy-cm. COMPARISON: Chest-abdomen pelvis CT of 05/13/2025. Abdominal ultrasound of 05/13/2025 FINDINGS: LOWER THORAX: Dependent atelectasis is present at the lung bases, and there is a trace of pleural fluid on the right. No significant pericardial effusion. No coronary artery calcification is visualized. Minimal fluid noted within the distal esophagus. No definite hiatal hernia. ABDOMEN: LIVER: Liver demonstrates fatty infiltration. GALLBLADDER AND BILE DUCTS: Gallbladder remains distended measuring 12.1 x 4.3 cm in diameter. No calcified gallstones, wall thickening or pericholecystic stranding. No biliary ductal dilatation or calcified common duct stone is seen. PANCREAS: Unremarkable. No focal cystic mass. No findings of acute pancreatitis. SPLEEN: Unremarkable. Normal size without focal cystic or solid mass. ADRENALS: Unremarkable. No nodules. KIDNEYS AND URETERS: Kidneys are normal in size. Minimal nonspecific perirenal stranding is present bilaterally. There is a tiny hyper attenuating cortical nodule at the left renal midpole, consistent with hemorrhagic/complicated cyst, unchanged. No renal or obstructing ureteral stone. No hydronephrosis. STOMACH AND BOWEL: Small uncomplicated duodenal diverticulum again noted abutting the pancreatic head. Margins of the pancreatic head are no longer indistinct. Stomach contains a moderate amount of gas and fluid; no gastric mural thickening. Duodenum is mildly distended with fluid with air-fluid levels. There is malposition of the proximal small bowel as the distal duodenum does not pass between the SMA and abdominal aorta. The jejunal loops are located within the right upper abdomen. Numerous distended small bowel loops with air-fluid levels are seen within the abdomen and pelvis, a new finding as compared to prior study. Proximal jejunum measures up to 4.1 cm in transverse diameter, with gradual decrease in caliber of the more distal small bowel loops, which contain air-fluid levels. The terminal ileum is decompressed and a zone of transition is noted within the left mid to lower abdomen where there is tethering of a few adjacent decompressed small bowel loops, as noted on coronal images 64-82 series 4, suggestive of adhesions. The terminal ileum is decompressed. Cecum is mobile with the cecum positioned within the right anterior abdomen. No findings of diverticulitis or colitis are identified. PELVIS: APPENDIX: No evidence of acute appendicitis. BLADDER: Urinary bladder is collapsed about an indwelling Freeman catheter. REPRODUCTIVE: Unremarkable as visualized. No mass. ABDOMEN and PELVIS: INTRAPERITONEAL SPACE: There is minimal hazy mesenteric edema adjacent to the distended proximal small bowel loops. No pneumatosis or extraluminal air is identified. No ascites. BONES/JOINTS: Flowing osteophytes about the lower thoracic disc spaces. SI joints are fused anteriorly. No acute osseous abnormality.No suspicious lytic or blastic abnormality. SOFT TISSUES: Small fat-filled inguinal hernias. VASCULATURE: Mildly calcific abdominal aorta and its branches. No AAA. LYMPH NODES: Unremarkable. No enlarged lymph nodes. IMPRESSION: 1. Interval development of findings of a distal small bowel obstruction. 2. The previously noted duodenal wall thickening and periduodenal/peripancreatic fat stranding have resolved. 3. Stable gallbladder distention. Nonstandard communication protocol initiated. N.B. : The above Results were Read Back by Gordon Ayers MD to Dr. Dave MD, and understanding confirmed on 05/14/2025 05:24:32 (ET). Electronically Signed: Gordon Ayers MD at 5:14 EDT , Addendum Dictated by: Gordon Ayers MD on 05/14/25 at 0514 Transcribed by: Gordon Ayers MD on 05/14/25 at 0514 Report Signed by: Gordon Ayers MD on 05/14/25 0514 We are attempting to reach an attending provider to discuss findings. An addendum with communication details will be sent when the communication is complete. EXAM: CT ABDOMEN AND PELVIS WITHOUT INTRAVENOUS CONTRAST CLINICAL INDICATION: leukocytosis/tachy/abd distension/firm/tender TECHNIQUE: Helically acquired images were obtained of the abdomen and pelvis without intravenous contrast. This CT exam was performed using one or more of the following dose reduction techniques: automated exposure control, adjustment of the mA and/or kV according to patient size, and/or use of iterative reconstruction technique. RADIATION DOSE: Total DLP: 698 mGy-cm. COMPARISON: Chest-abdomen pelvis CT of 05/13/2025. Abdominal ultrasound of 05/13/2025 FINDINGS: LOWER THORAX: Dependent atelectasis is present at the lung bases, and there is a trace of pleural fluid on the right. No significant pericardial effusion. No coronary artery calcification is visualized. Minimal fluid noted within the distal esophagus. No definite hiatal hernia. ABDOMEN: LIVER: Liver demonstrates fatty infiltration. GALLBLADDER AND BILE DUCTS: Gallbladder remains distended measuring 12.1 x 4.3 cm in diameter. No calcified gallstones, wall thickening or pericholecystic stranding. No biliary ductal dilatation or calcified common duct stone is seen. PANCREAS: Unremarkable. No focal cystic mass. No findings of acute pancreatitis. SPLEEN: Unremarkable. Normal size without focal cystic or solid mass. ADRENALS: Unremarkable. No nodules. KIDNEYS AND URETERS: Kidneys are normal in size. Minimal nonspecific perirenal stranding is present bilaterally. There is a tiny hyper attenuating cortical nodule at the left renal midpole, consistent with hemorrhagic/complicated cyst, unchanged. No renal or obstructing ureteral stone. No hydronephrosis. STOMACH AND BOWEL: Small uncomplicated duodenal diverticulum again noted abutting the pancreatic head. Margins of the pancreatic head are no longer indistinct. Stomach contains a moderate amount of gas and fluid; no gastric mural thickening. Duodenum is mildly distended with fluid with air-fluid levels. There is malposition of the proximal small bowel as the distal duodenum does not pass between the SMA and abdominal aorta. The jejunal loops are located within the right upper abdomen. Numerous distended small bowel loops with air-fluid levels are seen within the abdomen and pelvis, a new finding as compared to prior study. Proximal jejunum measures up to 4.1 cm in transverse diameter, with gradual decrease in caliber of the more distal small bowel loops, which contain air-fluid levels. The terminal ileum is decompressed and a zone of transition is noted within the left mid to lower abdomen where there is tethering of a few adjacent decompressed small bowel loops, as noted on coronal images 64-82 series 4, suggestive of adhesions. The terminal ileum is decompressed. Cecum is mobile with the cecum positioned within the right anterior abdomen. No findings of diverticulitis or colitis are identified. PELVIS: APPENDIX: No evidence of acute appendicitis. BLADDER: Urinary bladder is collapsed about an indwelling Freeman catheter. REPRODUCTIVE: Unremarkable as visualized. No mass. ABDOMEN and PELVIS: INTRAPERITONEAL SPACE: There is minimal hazy mesenteric edema adjacent to the distended proximal small bowel loops. No pneumatosis or extraluminal air is identified. No ascites. BONES/JOINTS: Flowing osteophytes about the lower thoracic disc spaces. SI joints are fused anteriorly. No acute osseous abnormality.No suspicious lytic or blastic abnormality. SOFT TISSUES: Small fat-filled inguinal hernias. VASCULATURE: Mildly calcific abdominal aorta and its branches. No AAA. LYMPH NODES: Unremarkable. No enlarged lymph nodes. IMPRESSION: 1. Interval development of findings of a distal small bowel obstruction. 2. The previously noted duodenal wall thickening and periduodenal/peripancreatic fat stranding have resolved. 3. Stable gallbladder distention. Nonstandard communication protocol initiated. Electronically Signed: Gordon Ayers MD at 5:14 EDT , cc: Chel Cleveland [employer]; Tay Camara MD Dictated by: Gordon Ayers MD on 05/14/25513 Transcribed by: Gordon Ayers MD on 05/14/25513 Report Signed by: Gordon Ayers MD on 05/14/25513 XR ABDOMEN 1 VIEW KUB Observed: 05/14/20 3:05 AM Status: F Source: [facility] Radiology Department Patient: DIONNA CONCEPCION. : 1975 Sex: Mirta [place], [place] [address] Location: ICU [phone] Unit #: [id number] Ordering Phys: Chel Cleveland CNP Exam Date: 05/14/25 Exam: MAIN XR Abdomen 1 View KUB Result: See Report EXAM: XR ABDOMEN, 1 VIEW CLINICAL INDICATION: sepsis/abd firm/tender. Abdominal discomfort and distension. Limited exam due to AMS. TECHNIQUE: Frontal supine view of the abdomen/pelvis. COMPARISON: Abdomen pelvis CT of this same date. FINDINGS: LOWER THORAX: No acute pathology. INTRAPERITONEAL SPACE: No pneumoperitoneum is noted. GASTROINTESTINAL TRACT: A single upright view of the abdomen shows a moderate amount of gas within the stomach. Multiple gas-filled small bowel loops are seen within the lower abdomen to upper pelvis, measuring up to 3.9 cm in transverse diameter, and multiple distended small bowel loops were noted on the preceding CT. Moderate amount of gas is scattered within the colon. ORGANS: Unremarkable as visualized. No organomegaly. No abnormal calcifications. BONES/JOINTS: No acute pathology. SOFT TISSUES: No acute pathology. IMPRESSION: Multiple gas filled and mildly distended small bowel loops, suspicious for small bowel obstruction, as noted on preceding abdominal pelvic CT. Electronically Signed: Gordon Ayers MD at 7:52 EDT , cc: Chel Cleveland CNP; Tay Camara MD Dictated by: Gordon Ayers MD on 05/14/25751 Transcribed by: Gordon Ayers MD on 05/14/25751 Report Signed by: Gordon Ayers MD on 05/14/25751 STATUS NOTE/UPDATE Observed: 05/14/2025 2:55 AM Status: F Source: [facility] Medical Records Patient: DIONNA CONCEPCIONefontaine Gracie. : 1975 [place], [place] [address] Location: [phone] Unit #: [id number] Status Note/Update Jeremiah Chavez MD Service Dt/Tm: 05/14/25253 Note: DIONNA CONCEPCION is a 49 yr old M who was admitted on 05/12/25 for RT MCA INFARCT/LT SIDED WEAKNESS. Patient currently in DTs, I have given him multiple doses of IV midazolam however still tachycardic in the 120s and tachypneic in the 40s, will transfer to critical care unit to continue benzodiazepine and possibly Precedex drip. Entered by: Jeremiah Chavez MD on 05/14/25253 Report Signed by: Jeremiah Chavez MD on 05/14/25254 <<Signature on File>> <Electronically signed by Jeremiah Chavez MD> Report Signed by: on BASIC METABOLIC,NON-FASTING Collected: 05/14/2025 2:40 AM Status: F Source: [facility] TYPE CODE TESTS RESULT OUT OF RANGE REFERENCE UNITS LAB L400.1400 Sodium 139 Normal 135-145 mEq/L LAB L400.1500 Potassium 4.0 Normal 3.6-5.0 mEq/L LAB L400.1600 Chloride 111 Normal 101-111 mEq/L LAB L400.1700 Carbon Dioxide 15 Low 21-32 mEq/L LAB L400.1800 Anion Gap 13 High 4-12 LAB L400.1820 Glucose 130 High 70-110 mg/dL LAB L400.1835 BUN 18 Normal 7-20 mg/dL LAB L400.1840 Creatinine 0.86 Normal 0.60-1.30 mg/dL LAB L400.1845 GFR Calculation > 60 Normal Result Comment: Chronic Kidn ey Disease stages by NKDF Stage eGFR I >90 II 60-89 III 30-59 IV 15-29 V <15 or dialysis Note: Information regarding the eGFR equation used can be found at https://www.kidney.org/rbge-bqlwy-uvtjmkmo. AGE(years) AVERAGE GFR 50-59 93 ml/min/1.73 square meters Note:This result is normalized to 1.73 square meter body surface area. Height and weight are not factored. LAB L400.2100 Calcium 8.50 Low 8.8-10.5 mg/dL Performed By: #### L400.5100 , L400.0302, L400.0152 #### Main Laboratory ([facility]) [address] [place] [address] Regan Sahni MD HEPATIC FUNCTION PANEL (LIVER) Collecte d: 05/14/2025 2:40 AM Status: F Source: [facility] TYPE CODE TESTS RESULT OUT OF RANGE REFERENCE UNITS LAB L400.1900 AST/SGOT 313 High 15-41 IU/L Result Comment: Delta: 41 on 05/11/25 LAB L400.1950 Alk Phos 347 High 41-137 IU/L Result Comment: Delta: 68 on 05/11/25 LAB L400.2000 Bili,Total 5.2 High 0.2-1.0 mg/dL Result Comment: Delta: 0.8 o n 05/11/25 LAB L400.2050 Bili,Direct 3.6 High 0.1-0.2 mg/dL LAB L400.2120 Albumin 3.4 Low 3.5-5.0 g/dL Result Comment: Delta: 4.6 o n 05/11/25 LAB L400.2140 Total Protein 6.4 Normal 6.2-8.0 g/dL LAB L400.4400 ALT/SGPT 308 High 10-40 IU/L Result Comment: Delta: 46 on 05/11/25 Performed By: #### L400.5100 , L400.0302, L400.0152 #### Main Laboratory ([facility]) [address] [place] [address] Regan Sahni MD MAGNESIUM Collected: 2:40 AM Status: F Source: [facility] TYPE CODE TESTS RESULT OUT OF RANGE REFERENCE UNITS LAB L400.5100 Magnesium 1.4 Low 1.8-2.5 mg/dL Performed By: #### L400.5100 , L400.0302, L400.0152 #### Main Laboratory ([facility]) [address] [place], [place] [address] [place] [address] Regan Sahni MD CBC WITH DIFFERENTIAL Collected: 05/14/2025 2:40 AM Status: F Source: [facility] TYPE CODE TESTS RESULT OUT OF RANGE REFERENCE UNITS LAB L100.0100 WBC 36.4 High alert 4.4-10.5 th/cmm Result Comment: This result was called to and read back by best rothman rn (by SHEELA at 0326, 05/14/25) LAB L100.0300 RBC 4.05 Low 4.50-6.00 mil/cmm LAB L100.0400 Hemoglobin 13.7 Normal 13.5-16.5 gm/dL Result Comment: Delta: 16.7 on 05/13/25-0805 LAB L100.0500 Hematocrit 40.1 Normal 40.0-49.0 % LAB L100.0600 MCV 99.1 High 80-97 CU DEIDRA LAB L100.0700 MCH 33.8 High 27.5-33.0 PG LAB L100.0800 MCHC 34.1 Normal 33.0-36.0 gm/dL LAB L100.0900 RDW 18.9 High 12.0-16.0 % LAB L100.1000 Platelet Count 237 Normal 150-400 th/cmm LAB L100.4300 Anisocytosis 1+ Normal Performed By: #### L100.2000 , L100.0000 #### Main Laboratory ([facility]) [address] [place], [place] [address] [address] Regan Sahni MD MANUAL DIFF Collected: 05/14/2025 2:40 AM Status: F Source: [facility] TYPE CODE TESTS RESULT OUT OF RANGE REFERENCE UNITS LAB L100.2200 Neutrophils 90.0 High 40-70 % LAB L100.2300 Bands 5.0 Normal 2-6 % LAB L100.2400 Lymphocytes 1.0 Low 15-45 % LAB L100.2500 Monocytes 3.0 Normal 2-10 % LAB L100.2800 Metamyelocytes 1.0 Normal % LAB L100.3510 Abs Neut Count 67369 High 8433-3534 /cmm LAB L100.3515 Abs Lymph Count 364 Low 6976-3393 /cmm LAB L100.3520 Abs Mcdonough Count 1092 High 0-800 /cmm LAB L100.3525 Abs Eos Count 0 Normal 0-500 /cmm LAB L100.3530 Abs Baso Count 0 Normal 0-200 /cmm Performed By: #### L100.2000 , L100.0000 #### Main Laboratory ([facility]) [address] [place] [address] Regan Sahni MD LACTIC ACID Collected: 5 1:12 AM Status: F Source: [facility] TYPE CODE TESTS RESULT OUT OF RANGE REFERENCE UNITS LAB L401.4160 Lactic Acid 2.7 High alert 0.5-2.0 mmol/L Result Comment: Critical Res ult S_LAC:2.7 Called to and read back by: ANA MASTERS RN at: 05/14/2025 02:39:39 by:KACY Performed By: #### L401.4160 #### Main Laboratory ([facility]) [facility] [place] [address] Regan Shani MD LACTIC ACID Collected: 5 10:02 PM Status: F Source: [facility] TYPE CODE TESTS RESULT OUT OF RANGE REFERENCE UNITS LAB L401.4160 Lactic Acid 3.5 High alert 0.5-2.0 mmol/L Result Comment: Critical Res ult S_LAC:3.5 Called to and read back by: RHODA TSANG RN at: 05/13/2025 22:31:05 by:SHEELA Performed By: #### L401.4160 #### Main Laboratory ([facility]) [address] [place] [address] Regan Sahni MD LACTIC ACID Collected: 5 6:03 PM Status: F Source: [facility] TYPE CODE TESTS RESULT OUT OF RANGE REFERENCE UNITS LAB L401.4160 Lactic Acid 3.0 High alert 0.5-2.0 mmol/L Result Comment: Critical Res ult S_LAC:3.0 Called to and read back by: KEVIN CROOKS RN at: 05/13/2025 18:46:16 by:MSWOOD Performed By: #### L401.4160 #### Main Laboratory ([facility]) [address] [place] [address] Regan Sahni MD PROGRESS NOTE - HOSPITALIST Observed: 5:27 PM Status: F Source: [facility] Medical Records Patient: DIONNA CONCEPCION [address] : 1975 [place], [place] [address] Location: [phone] Unit #: [id number] Progress Note - Hospitalist Rose Sanchez MD Service Dt/Tm: 05/13/25 1002 Assessment/Plan Assessment/Plan (1) Sepsis: Status: Acute Qualifiers: Sepsis acute organ dysfunction status: unspecified Sepsis type: sepsis due to unspecified organism Qualified Code(s): A41.9 - Sepsis, unspecified organism Plan: Patient had elevated white blood cell count this morning up to 42.9. At admission white blood cell was 13.4 TSH 1.87, Procalcitonin 0.183 at time of admission Fever reported this morning 100.5. Patient tachycardic with heart rate up to 140. Lactic acid elevated 2.5. Lactic acidosis Respiratory panel negative Sepsis protocol initiated. 2 L of normal saline given. Maintenance fluid with 100 cc NS. Concern for for aspiration, chest x-ray obtained reports Nonacute portable x-ray examination of the chest. Urine at admission was negative. Freeman catheter placed due to urinary retention overnight. Blood culture obtained, started on ceftriaxone ID consulted for further evaluation Elevated WBC and lactic acid levels suggest a significant infectious or inflammatory process. Tachycardia and fever are consistent with systemic infection or sepsis. Aspiration risk noted; further evaluation with CT imaging Monitor vital signs and laboratory results closely. Continue antibiotic therapy and adjust based on culture results and ID recommendations. Reassess fluid status and adjust maintenance fluids as needed. Evaluate for any signs of respiratory distress or further complications. CT chest abdomen pelvis ordered (2) Left-sided weakness: Status: Acute Plan: Patient presented with generalized weakness, worsening symptoms. CT head, CTA head and neck. Showing subacute infarction MCA territory. Neurology evaluated the patient. Possibly chronic infarction with poor functional status related to the stroke in January currently on aspirin. Neurology recommended MRI brain, which was done Old cortical gyral ischemic infarcts with focal atrophy involving the right postcentral gyrus and right lateral occipitotemporal gyrus and smaller old cortical gyral ischemic infarct in the right middle frontal gyrus. Neurology recommended continue aspirin, continue statin. Risk factor modification. PT/OT evaluation. Chest x-ray: No acute thoracic pathology. Neurology recommended 30 days MCOT at DC Electrolyte replacement A1c 5 (3) Fatigue: Status: Acute Qualifiers: Fatigue type: unspecified Qualified Code(s): R53.83 - Other fatigue Plan: K- 2.9, Potassium replaced. (4) History of right MCA stroke: Status: Acute (5) Gaze palsy: Status: Acute Plan: Patient reports he is having left-sided gaze palsy secondary to previous stroke on January. On examination, patient cannot turn his eyes to the left side, (6) Dehydration: Status: Acute Plan: Continue IV hydration. Monitor intake and output (7) Fever: Status: Acute Qualifiers: Fever type: unspecified Qualified Code(s): R50.9 - Fever, unspecified (8) Leukocytosis: Status: Acute Qualifiers: Leukocytosis type: bandemia Qualified Code(s): D72.825 - Bandemia Plan PT/ OT eval Current Code Status AND Diet: 05/11/25 18:30 Code Status Routine Resuscitation Status: Full Code Code Status Order Placed: Code Status Ordered 05/11/25 at 1830 05/11/25 20:09 AHA Diet Texture: Regular Fluid Restrictions?: No Discussed Patient's Care With: Nurse Subjective Subjective: Primary Care Provider: Tay Camara MD Chief Complaint: RT MCA INFARCT/LT SIDED WEAKNESS Patient seen and examined this morning. Complaining of weakness, nausea and generalized pain. Tachycardic heart rate was up to 140, temperature 100.5. Leukocytosis noted white blood cells significantly elevated to 42.9 and elevated lactic Diminished urine output, Freeman catheter placed last night Concern about sepsis versus dehydration. Patient Status AND Estimated DC Date Patient Registration Status: Inpatient Objective Physical Exam: GEN: Lying in bed in mild distress due to nausea, looking HEENT: No lymphadenopathy, neck is supple Chest: Bilateral air entry, no wheezing or rhonchi CVS: S1 and S2, no gallop or murmur Abdomen: Soft, normal bowel sound, no organomegaly Extremities: No edema bilateral lower extremities. Neurological exam, weakness left upper lower extremity. left gaze palsy Social determinants of health completed per CM, reviewed. Constitutional: Last Vital Signs Temp Pulse Resp BP Pulse Ox 100.5 F H 126 H 26 H 135/92 H 97 05/13/25 09:36 05/13/25 09:36 05/13/25 09:36 05/13/25 09:36 05/13/25 09:36 Intake and Output Intake Total 240 Output Total 1300 Balance -1060 Admitting (IV Pump) Weight 61.4 kg Actual Weight (Kg) 61.4 kg Data Labs: Lactic Acid 2.5 H* Magnesium 1.7 L WBC 38.7 H* D 42.9 H* RBC 4.43 L 4.90 Hgb 15.2 16.7 H Hct 42.9 47.6 MCV 96.9 97.1 H MCH 34.3 H 34.0 H MCHC 35.4 35.0 RDW 19.3 H 18.7 H Plt Count 336 346 Sodium 137 139 Potassium 3.4 L 3.2 L Chloride 106 105 Carbon Dioxide 21 21 Anion Gap 10 13 H BUN 16 16 Creatinine 0.57 L 0.61 Calcium 9.40 9.70 The last 24 hours of labs have been reviewed. Imaging: I have reviewed the diagnostic images in the EMR. 05/13/25 07:42 Chest 1 View Portable Xray [XR Chest 1 View Portable] Urgent Medications and Comanagement: Medications reviewed separately. Entered by: Rose Sanchez MD on 05/13/25 1002 Report Signed by: Rose Sanchez MD on 05/13/25 1727 <<Signature on File>> <Electronically signed by Rose Sanchez MD> Report Signed by: on PROGRESS NOTE NEUROLOGY Observed: 2024 5:10 PM Status: F Source: [facility] Medical Records Patient: DIONNA CONCEPCION [address] : 1975 [place], [place] [address] Location: [phone] Unit #: [id number] Progress Note Neurology Nic Lewis MD Service Dt/Tm: 05/13/25 1710 [facility] Progress Note Date of Service 05/13/2025 Presentation: Based on previous neurology note(s) : 49M with a history of stroke who presents to the ED for generalized weakness and ongoing L hemibody symptoms. Patient reports about 5 months ago he had a stroke and has had left sided deficits since that time. He has left sided weakness, sensory deficit, and his whole left side is tingling. He has difficulty with ambulation. He also notes that he just feels generally weak with dizziness for the last 3 months. He states he feels touchy. He is a somewhat poor historian and it is difficult to discern exactly what changed that brought him in today. There does not seem to be a new acute focal deficit in the last 3w but rather a slow decline and decompensation. The patient tells me he was seen for his stroke and given 6 different medications to take but was unable to afford them so he is only taking aspirin 81 mg daily. He does smoke. He also has been drinking. There seems to be some component of confabulation and inconsistencies in his history (initially tells me he has Afib, this is no corroborated on chart, told bedside RN he did not have Afib and only anxiety, has HTN as well) and his timeline does fluctuate; it seems he had stopped drinking but restarted again last night and some this morning. On review of the EMR for better clarity of the patient's history: it appears he was seen by his PCP 02/03 for numbness and weakness on his left side that occurred sometime early January. He was advised to go to the ED at that time but did not. His PCP ordered an MRI Brain, MRA Brain and neck as well as aspirin 81 mg daily. It seems like he did not follow through with the MRI. He has not yet been seen by neurology as his appointment was scheduled too far out. On 03/13 he saw his PCP again, he had not gotten the MRI then. Labs were obtained and LDL was 285 at that time. No other risk stratification work up had been completed by patient at that point. NIHSS 1 Gaze palsy - cannot cross midline to the left. LLE drift. Intermittently oriented, then intermittently confused and tangential. Interval history: CTA Head and Neck no Large Vessel Occlusion TTE: EF Normal, no PFO, no Thrombus reported LDL 171 HbA1c 5 Brain MRI: 1. No acute intracranial abnormality. 2. Old cortical gyral ischemic infarcts with focal atrophy involving the right postcentral gyrus and right lateral occipitotemporal gyrus and smaller old cortical gyral ischemic infarct in the right middle frontal gyrus. 05/13/2025: tachycardic overnight Impression: Alcohol abuse Clinical stroke January 2025 (had left-sided weakness, dizziness, gait impairment, did not get complete workup but started on Aspirin) Worsening of the symptoms above (no new stroke on brain MRI) altered mental status likely due to an infection Recommendations: (Primary Team to order Controlled Medications) Unless specifically noted I Agree with Impression and Plan from previous Neurology note/consult. 1- Supportive and symptomatic treatment, electrolyte management and antibiotics (if any) per primary team. 2- continue Aspirin and statin for goal LDL<70 3- Blood Pressure target normotension, avoid rapid lowering of Blood Pressure 4- Dizziness/lightheadedness workup per primary team (orthostatic vital signs, cardiac monitoring) 5- Recommend Physical Therapy evaluation for peripheral causes of dizziness/vertigo (primary team to order) 6- given old cortical strokes on brain MRI, recommend (at least) 30 days of outpatient cardiac event monitoring (Or Implantable Loop Recorder) looking for occult paroxysmal Atrial Fibrillation 7- At the moment there are No red flags or concerning signs/ symptoms for INDUCTION MACHINE SETTER infection or seizures, will defer EEG and LP for now. But if mental status does not continue to improve or fluctuates very significantly then EEG and LP should be considered and neurology reconsulted with EEG or LP is abnormal. Neurology will sign off. Follow up with outpatient neurology in 2-3 weeks. Please contact [employer] Navigator to reach me if further questions/concerns arise. Examination: Examination done through interactive audio and video telecommunications with the assist of bedside nursing (when available) awake, alert, oriented to self, year, Verbal response is limited but speech change does not seem out of proportion to impairment in rest of cognitive domains. Gaze palsy - cannot cross midline to the left. face symmetric left arm drift to bed Patient / Family was informed the Neurology Consult would occur via TeleHealth consult by way of interactive audio and video telecommunications and consented to receiving care in this manner. Patient is being evaluated for possible acute neurologic impairment and high probability of imminent or life - threatening deterioration. I spent total of 15 minutes providing care to this patient, including time for face to face visit via telemedicine, review of medical records, imaging studies and discussion of findings with providers, the patient and / or family. Dr Nic Lewis [employer] For Inpatient follow-up with [facility] physician please call [facility] . This is not an outpatient service. Post hospital discharge, please contact hospital directly. Please do not communicate with [facility] physicians via secure chat. If you have any questions, Please contact [facility]. Please call or reconsult our service if there are any clinical or diagnostic changes. Data: Last Vital Signs Temp Pulse Resp BP Pulse Ox 98.2 F 107 H 18 143/94 H 98 05/13/25 16:18 05/13/25 16:18 05/13/25 16:18 05/13/25 16:18 05/13/25 16:18 Hematology WBC 38.7 H* D 42.9 H* RBC 4.43 L 4.90 Hgb 15.2 16.7 H Hct 42.9 47.6 MCV 96.9 97.1 H MCH 34.3 H 34.0 H MCHC 35.4 35.0 RDW 19.3 H 18.7 H Plt Count 336 346 Neutrophils % (Manual) 94.0 H Band Neutrophils % 2.0 Lymphocytes % (Manual) 4.0 L Abs Neuts (Manual) 98535 H Abs Lymphs (Manual) 1548 Abs Monocytes (Manual) 0 Absolute Eos (Manual) 0 Abs Basophils (Manual) 0 Nucleated RBCs # 1 Anisocytosis 1+ RBC Morph Comment Test not indicated Chemistry Sodium 137 139 Potassium 3.4 L 3.2 L Chloride 106 105 Carbon Dioxide 21 21 Anion Gap 10 13 H BUN 16 16 Creatinine 0.57 L 0.61 GFR Calculation > 60 > 60 Random Glucose 112 H 126 H Lactic Acid 2.5 H* Calcium 9.40 9.70 Magnesium 1.7 L Prealbumin 15.0 L Amylase 17 L Lipase 40 Procalcitonin 0.25 Sodium Potassium 3.5 L Chloride Carbon Dioxide Anion Gap BUN Creatinine GFR Calculation Random Glucose Lactic Acid 3.7 H* 2.5 H* Calcium Magnesium Prealbumin Amylase Lipase Procalcitonin Urine Urine Color Yellow Yellow Urine Appearance Clear Cloudy Urine pH 7.0 7.0 Ur Specific [place] >=1.050 1.021 Urine Protein 10 mg/dL 20 mg/dl Urine Glucose (UA) Negative 30 mg/dL Urine Ketones Negative Negative Urine Blood Negative >1.0 mg/dl Urine Nitrite Negative Negative Urine Bilirubin Negative 2 mg/dL Urine Urobilinogen 6 mg/dL >10.0 mg/dl Ur Leukocyte Esterase Negative 75 Pati/uL U Hyaline Cast (Auto) 3-5 H Urine RBC 0-2 >100 H Ur WBC Total Counted 0-5 21-50 H Ur Squamous Epith Cells None None Ur Renal Epithelial Cell 0-5 Urine Mucus (Auto) Present Present Ur Culture Indicated? No Yes Toxicology Urine Opiates Screen Negative Ur Oxycodone Screen Negative Ur Barbiturates Screen Negative Ur Phencyclidine Scrn Negative Ur Amphetamines Screen Negative U Benzodiazepines Scrn Negative Urine Cocaine Screen Negative U Cannabinoids Screen Positive H Drug Screen Comment Patient was informed the Neurology Consult would happen via telehealth (remote video) and consented to receiving care in this manner. Entered by: Nic Lewis MD on 05/13/251709 Report Signed by: Nic Lewis MD on 05/13/251709 <<Signature on File>> <Electronically signed by Nic Lewis MD> Report Signed by: on CASE MANAGEMENT DAILY NOTE Observed: 06/2025 4:16 PM Status: F Source: [facility] Case Management Patient: DIONNA CONCEPCION [address] : 1975 [place], [place] [address] Location: [address] [place] [address] Unit #: [id number] Case Management Daily Note Jimena Carcamo RN Service Date: 05/13/25 Case Mgmt Daily Note - Plan of Care Wood Drilling Machine Operator Agrees with Attending and Consult Plan: Yes - Patient Preferences AND Goals What is the patient's preference?: Services to be Determined Recommended acute discharge goals: Services to be Determined - Hospital Stay Days Day 1 Comment: 05/11 - Spoke with patient at bedside. Patient has Pavan Huynh. PCP is Pam Camara. director of player personnel is his father, Dionna. [facility]acy [facility]. Denies services, DME. He is independent of ADLS and drives. He lives with his brother and father in a 1 story home with no steps to enter. Denies LW/DPOA. Per primary nurse, Jenni, she states that EMS reported that family stated patient has been depressed and having trouble with his left side weakness from his stroke 2 months ago. Also states he has been falling at home. Wood Drilling Machine Operator: Ana Snyder, RN Day 2 Comment: 05/12 - Spoke with pt. MRI completed and pending results. Neuro following. PT/OT ordered and recommended IPR. Rehab consulted to review case and waiting on response. Wood Drilling Machine Operator: Shelbi Jackson N Day 3 Comment: 05/13 Dispo pending medical course. IPR following, c/s placed 05/12. MRI B (-) for acute CVA. WBC 42.9. Lactic 3.7. BC/UA/Sputum Cx. IV Rocephin/IVF. PT/OT. Wood Drilling Machine Operator: Jimena Carcamo RN - Respiratory Equipment Does the patient use/have any of these devices at home?: N/A - * L * Length of Stay LOS (Including day of Admission and Discharge): 3 LOS Score: 3 - * A * Acuity on Admission ER Provider if admitted from ER (view): RGMAXO Was patient admitted to hospital via Emergency Dept? Score: 3 - * C * Comorbidities Select All Conditions that Apply: Cerebral Disease (Any previous stroke or transient ischemic attack) Comorbidities Total Score: 1 - * E * Emergency Department Visits # of ER visits,6mos prior to admit,excl this admits ER visit: 0 Enter this number or 4 (whichever is smaller): 0 - LACE SCORE LACE Score: 7 - ANTICIPATED DISCHARGE Anticipated Discharge Date: 05/16/25 Entered by: Jimena Carcamo RN on 05/13/25 1131 Report Signed by: Jimena Carcamo RN on 05/13/25 1616 <<Signature on File>> <Electronically signed by Jimena Carcamo RN> Co-Signed by: on POTASSIUM Collected: 5 3:03 PM Status: F Source: [facility] TYPE CODE TESTS RESULT OUT OF RANGE REFERENCE UNITS LAB L400.1500 Potassium 3.5 Low 3.6-5.0 mEq/L Performed By: #### L400.1500 #### Main Laboratory ([facility]) [address] [place] [address] Regan Sahni MD LACTIC ACID Collected: 1:58 PM Status: F Source: [facility] TYPE CODE TESTS RESULT OUT OF RANGE REFERENCE UNITS LAB L401.4160 Lactic Acid 2.5 High alert 0.5-2.0 mmol/L Result Comment: Critical Res ult S_LAC:2.5 Called to and read back by: GLENN RUBI RN at: 05/13/2025 14:37:50 by:GABRIELA Performed By: #### L401.4160 #### Main Laboratory ([facility]) [address] [place] [address] Regan Sahni MD US ABDOMEN COMPLETE [id number] Observed: 06/2025 12:46 PM Status: F Source: [facility] Radiology Department Patient: DIONNA CONCEPCION [address] : 1975 Sex: [place] [address] Location: [address] [place] [address] Unit #: [id number] Ordering Phys: Marc Serna (ID) Exam Date: 05/13/25 Exam: US US Abdomen Complete [id number] Result: See Report EXAM: US abdomen, complete. HISTORY: duodenitis/pud/pancreatitis/diverticulitis TECHNIQUE: US Abdomen Complete COMPARISON: CT chest, abdomen and pelvis of this same date. LIMITATIONS: Bowel gas. Inability to patient cooperation. LIVER Size: Normal. Right hepatic lobe measures 15.9 cm in length. Masses: None. Contour: Normal. Echotexture: Normal. Bile ducts: Normal. Portal veins: Normal. Visualized hepatic veins are also patent. GALLBLADDER Size: Mildly distended, measuring 8.7 x 4.2 x 3.7 cm in diameter Stones/sludge: Small amount of gallbladder sludge. No shadowing gallstones. Wall thickness: Borderline wall thickening, with the wall measuring 3.3 mm in thickness. Pericholecystic fluid: None. Sonographic Flowers sign: Negative. EXTRAHEPATIC BILE DUCTS: Normal. Common bile duct measures 3.4 mm in diameter. PANCREAS: Obscured by bowel gas. AORTA/IVC: Proximal abdominal aorta obscured by bowel gas. Mid abdominal aorta measures 1.7 cm in AP diameter. The distal abdominal aorta shows fusiform dilatation, and measures 2.2 cm in AP diameter by 2.6 cm in transverse diameter. Visualized IVC is patent. KIDNEYS: Normal. Right kidney measures 10.5 cm in length. Left kidney measures 11.2 cm in length. No hydronephrosis. SPLEEN: Normal. Spleen measures 9.9 cm in length. ASCITES: None. PLEURAL EFFUSIONS: None. OTHER: None. IMPRESSION: Mildly distended gallbladder with sludge. Borderline gallbladder wall thickening. HIDA scan could be utilized for further evaluation if acalculous cholecystitis is a clinical concern. No gallstones or biliary ductal dilatation. Electronically Signed: Gordon Ayers MD at 22:53 EDT , cc: Tay Camara MD; Marc Serna MD (ID) Dictated by: Gordon Ayers MD on 05/13/252252 Transcribed by: Gordon Ayers MD on 05/13/252252 Report Signed by: Gordon Ayers MD on 05/13/252252 LACTIC ACID Collected: 10:14 AM Status: F Source: [facility] TYPE CODE TESTS RESULT OUT OF RANGE REFERENCE UNITS LAB L401.4160 Lactic Acid 3.7 High alert 0.5-2.0 mmol/L Result Comment: Critical Res ult S_LAC:3.7 Called to and read back by: KEVIN CROOKS RN at: 05/13/2025 11:25:08 by:GABRIELA Performed By: #### L401.4160 #### Main Laboratory ([facility]) [address] [place] [address] CHEST ABDOMEN PELVIS WO Observed: 06/2025 9:51 AM Status: F Source: [facility] Radiology Department Patient: DIONNA CONCEPCION [address] : 1975 Sex: [place]anc[place] [id number] Location: [phone] [id number] Ordering Phys: Rose Sanchez MD Exam Date: 05/13/25 Exam: CT CT Chest Abdomen Pelvis WO Result: See Report EXAM: CT CHEST, ABDOMEN AND PELVIS WITHOUT INTRAVENOUS CONTRAST CLINICAL INDICATION: Sepsis, fever of unknown origin TECHNIQUE: Axial computed tomography images of the chest, abdomen and pelvis without intravenous contrast. This CT exam was performed using one or more of the following dose reduction techniques: automated exposure control, adjustment of the mA and/or kV according to patient size, and/or use of iterative reconstruction technique. COMPARISON: No relevant prior studies available. FINDINGS: ARTIFACTS: Patient motion artifact mildly degrades quality of exam. CHEST: LUNGS AND PLEURAL SPACES: Mild atelectasis bilateral lower lobes. No mass. No significant effusion. No pneumothorax. HEART: Unremarkable. No cardiomegaly. No significant pericardial effusion. MEDIASTINUM: Unremarkable. No mass. THYROID: Unremarkable. No enlarged or calcified nodules. ABDOMEN: LIVER: Unremarkable. GALLBLADDER AND BILE DUCTS: The gallbladder is distended but no gallbladder wall thickening. No calcified stones. No ductal dilation. PANCREAS: No pancreatic mass. Margins of the pancreatic head are indistinct along the anterior and lateral border on image 102 of series 2. No ductal dilation. SPLEEN: Unremarkable. No splenomegaly. ADRENALS: Unremarkable. No mass. KIDNEYS AND URETERS: Unremarkable. No obstructing stones. No hydronephrosis. STOMACH AND BOWEL: Ill-defined wall thickening and periduodenal stranding involves the first and second portion duodenum. There is a small periampullary diverticulum (image 1.9 cm) with small locule of air on image 103 of series 2. There is slight induration adjacent to the medial wall of the duodenum and pancreatic head but no focal fluid collection. Fluid distention of the stomach extends into the duodenum. PELVIS: APPENDIX: No findings to suggest acute appendicitis. BLADDER: Urinary bladder is decompressed by Freeman catheter. No stones. REPRODUCTIVE: Unremarkable as visualized. CHEST, ABDOMEN and PELVIS: INTRAPERITONEAL SPACE: Unremarkable. No significant fluid collection. No free air. BONES/JOINTS: Unremarkable. No acute fracture. SOFT TISSUES: Unremarkable. VASCULATURE: Atherosclerosis of the thoracoabdominal aorta and proximal iliac arteries.. No aortic aneurysm. LYMPH NODES: Unremarkable. No enlarged lymph nodes. IMPRESSION: 1. Proximal duodenal wall thickening, periampullary diverticulum and adjacent stranding suggesting possibility of duodenitis/peptic ulcer disease, groove pancreatitis or periampullary diverticulitis. 2. No pulmonary airspace disease/pneumonia or pleural effusion. 3. Chronic changes, as above. cc: Rose Sanchez MD; Tay Camara MD Dictated by: Nathan Epstein MD on 05/13/25 1103 Transcribed by: Nathan Epstein on 05/13/25 1109 Report Signed by: Nathan Epstein MD on 05/13/25 110 URINALYSIS W MICRO RFLX CULT Collected: 05/13/2025 9: 16 AM Status: F Source: [facility] Order Comment: Urine Source Urine, Catherized TYPE CODE TESTS RESULT OUT OF RANGE REFERENCE UNITS LAB L300.3300 Color Yellow Normal LAB L300.3400 Appearance Cloudy Normal LAB L300.3500 Glucose 30 mg/dL Normal Negative LAB L300.3550 Protein 20 mg/dl Normal Negative LAB L300.3700 Bilirubin 2 mg/dL Normal Negative LAB L300.3750 Urobilinogen >10.0 mg/dl Normal 0.2-1.0 LAB L300.3775 pH 7.0 Normal 5.0-8.0 LAB L300.3800 Specific [place] 1.021 Normal 1.000-1.035 LAB L300.4100 Hemoglobin >1.0 mg/dl Normal Negative LAB L300.4150 Ketones Negative Normal Negative LAB L300.4600 Nitrites Negative Normal Negative LAB L300.4700 Leukocytes 75 Pati/uL Normal Negative LAB L300.5000 WBC 21-50 High /HPF LAB L300.5050 RBC >100 High /HPF LAB L300.5100 Epi,Squamous None Normal /HPF LAB L300.5140 Epi,Renal 0-5 Normal /HPF LAB L300.6100 Hyaline Casts 3-5 High /LPF LAB L300.6700 Mucous Present Normal LAB L300.7300 UA Reflex Culture Yes Normal Result Comment: Culture done per lab protocol Performed By: #### L300.3000 #### Main Laboratory ([facility]) [address] [place] [address] Regan Sahni MD URINE CULTURE, REFLEX Observed: 05/13/20 9:16 AM Status: F Source: [facility] No growth after 2 days. Performed By: #### M120.0050 #### Main Laboratory ([facility]) [address] [place], [place] [address] [place] [address] Regan Sahni MD DRUG SCREEN URINE Collected: 05/13/2025 9:16 AM Stat us: F Source: [facility] TYPE CODE TESTS RESULT OUT OF RANGE REFERENCE UNITS LAB L402.4300 Phencyclidine Negative Normal Negative LAB L402.4600 Benzodiazepines Negative Normal Negative LAB L402.4700 Cocaine Negative Normal Negative LAB L402.4800 Amphetamines Negative Normal Negative LAB L402.4900 Cannabinoids Positive High Negative LAB L402.5000 Opiates Negative Normal Negative LAB L402.5100 Barbiturates Negative Normal Negative LAB L402.5104 Oxycodone Negative Normal Negative LAB L402.5105 Comment Normal Result Comment: This drug of abuse screen is not intended for employment related testing and is intended for use in clinical management of patients. Cut-off Concentrations for Positive Results Phencyclidine 25 ng/mL Benzodiazepines 200 ng/mL Cocaine 300 ng/mL Amphetamines 1000 ng/mL Cannabinoids 50 ng/mL Opiates 300 ng/mL Barbiturates 200 ng/mL Oxycodone 100 ng/mL Performed By: #### L402.4000 #### Main Laboratory ([facility]) [address] [place] [address] Regan Sahni MD CBC WITHOUT DIFFERENTIAL Collected: 06/2025 8:05 AM Status: F Source: [facility] TYPE CODE TESTS RESULT OUT OF RANGE REFERENCE UNITS LAB L100.0100 WBC 42.9 High alert 4.4-10.5 th/cmm Result Comment: This result was called to and read back by GLENN RUBI RN (by JENNY at 0827, 05/13/25) LAB L100.0300 RBC 4.90 Normal 4.50-6.00 mil/cmm LAB L100.0400 Hemoglobin 16.7 High 13.5-16.5 gm/dL LAB L100.0500 Hematocrit 47.6 Normal 40.0-49.0 % LAB L100.0600 MCV 97.1 High 80-97 CU DEIDRA LAB L100.0700 MCH 34.0 High 27.5-33.0 PG LAB L100.0800 MCHC 35.0 Normal 33.0-36.0 gm/dL LAB L100.0900 RDW 18.7 High 12.0-16.0 % LAB L100.1000 Platelet Count 346 Normal 150-400 th/cmm Performed By: #### L100.0050 #### Main Laboratory ([facility]) [address] [place] [address] Regan Sahni MD XR CHEST 1 VIEW PORTABLE Observed: 05/13 7:43 AM Status: F Source: [facility] Radiology Department Patient: DIONNA CONCEPCION [address] : 1975 Sex: [place], [place] [address] Location: [phone] Unit #: [id number] Ordering Phys: Rose Sanchez MD Exam Date: 05/13/25 Exam: MAIN XR Chest 1 View Portable Result: See Report STUDY: X-RAY CHEST REASON FOR EXAM: Male, 49 years old. sob, possible aspiration TECHNIQUE: AP COMPARISON: 05/11/2025. FINDINGS: EKG leads project over the chest. The lungs are clear and expanded. There is no demonstrated pleural abnormality. Normal size cardiac silhouette. Normal mediastinum and mayelin. Normal visualized pulmonary arteries. Normal visualized aortic arch and descending thoracic aorta. No acute bony process. There is no demonstrated abnormality of the visualized soft tissue structures of the upper abdomen. IMPRESSION: Nonacute portable x-ray examination of the chest. cc: Rose Sanchez MD; Tay Camara MD Dictated by: Nathan Epstein MD on 05/13/25831 Transcribed by: Nathan Epstein on 05/13/25831 Report Signed by: Nathan Epstein MD on 05/13/25831 LACTIC ACID Collected: 6:55 AM Status: F Source: [facility] TYPE CODE TESTS RESULT OUT OF RANGE REFERENCE UNITS LAB L401.4160 Lactic Acid 2.5 High alert 0.5-2.0 mmol/L Result Comment: Critical Res ult S_LAC:2.5 Called to and read back by: GLENN RUBI RN at: 05/13/2025 07:30:22 by:GABRIELA Performed By: #### L401.4160 #### Main Laboratory ([facility]) [address] [place] [id number] Regan Sahni MD BLOOD CULTURE Observed: 05/13/2025 6:54 AM Status: F Source: [facility] No growth after 5 days. Performed By: #### M110.0050 #### Main Laboratory ([facility]) [address] [place] [address] Regan Sahni MD BLOOD CULTURE Observed: 05/13/2025 6:44 AM Status: F Source: [facility] No growth after 5 days. Performed By: #### M110.0050 #### Main Laboratory ([facility]) [address] [place] [id number] Regan Sahni MD STATUS NOTE/UPDATE Observed: 05/13/2025 6:08 AM Status: F Source: [facility] Medical Records Patient: DIONNA CONCEPCION [address] : 1975 [place], [place] [address] Location: [phone] Unit #: [id number] Status Note/Update Jeremiah Chavez MD Service Dt/Tm: 05/13/25 0607 Note: DIONNA CONCEPCION is a 49 yr old M who was admitted on 05/11/25 for RT MCA INFARCT/LT SIDED WEAKNESS. I was notified of critical white blood cell count of 38,000 which is a significant elevation from prior WBC, no fever, patient does not appear to be aspirating, being admitted for CVA. In the meantime , will get blood cultures, lactic acid, start IV fluid NS at 100 mL/h, empiric IV antibiotics with Rocephin 1 g daily until infectious processes is ruled out. Entered by: Jeremiah Chavez MD on 05/13/25 0607 Report Signed by: Jeremiah Chavez MD on 05/13/25 0608 <<Signature on File>> <Electronically signed by Jeremiah Chavez MD> Report Signed by: on CBC WITH DIFFERENTIAL Collected: 05/13/2025 4:55 AM Status: F Source: [facility] TYPE CODE TESTS RESULT OUT OF RANGE REFERENCE UNITS LAB L100.0100 WBC 38.7 High alert 4.4-10.5 th/cmm Result Comment: Delta: 13.4 on 05/11/25-1514 This result was called to and read back by KAYLAN SOLIS RN 5S (by VICTORIA at 0543, 05/13/25) LAB L100.0300 RBC 4.43 Low 4.50-6.00 mil/cmm LAB L100.0400 Hemoglobin 15.2 Normal 13.5-16.5 gm/dL LAB L100.0500 Hematocrit 42.9 Normal 40.0-49.0 % LAB L100.0600 MCV 96.9 Normal 80-97 CU DEIDRA LAB L100.0700 MCH 34.3 High 27.5-33.0 PG LAB L100.0800 MCHC 35.4 Normal 33.0-36.0 gm/dL LAB L100.0900 RDW 19.3 High 12.0-16.0 % LAB L100.1000 Platelet Count 336 Normal 150-400 th/cmm LAB L100.4300 Anisocytosis 1+ Normal Performed By: #### L100.0000 , L100.2000, L150.0585 #### Main Laboratory ([facility]) [address] [place] [address] Regan Sahni MD MANUAL DIFF Collected: 05/13/2025 4:55 AM Status: F Source: [facility] TYPE CODE TESTS RESULT OUT OF RANGE REFERENCE UNITS LAB L100.2200 Neutrophils 94.0 High 40-70 % LAB L100.2300 Bands 2.0 Normal 2-6 % LAB L100.2400 Lymphocytes 4.0 Low 15-45 % LAB L100.3200 Nucleated Red Blood Cells 1 Normal /100 WBC LAB L100.3510 Abs Neut Count 89792 High 7058-0621 /cmm LAB L100.3515 Abs Lymph Count 1548 Normal 3304-3718 /cmm LAB L100.3520 Abs Mcdonough Count 0 Normal 0-800 /cmm LAB L100.3525 Abs Eos Count 0 Normal 0-500 /cmm LAB L100.3530 Abs Baso Count 0 Normal 0-200 /cmm Performed By: #### L100.0000 , L100.2000, L150.0585 #### Main Laboratory ([facility]) [address] [place] [address] Regan Sahni MD SLIDE REVIEW BY PATHOLOGIST Collected: 05/13/2025 4:5 5 AM Status: F Source: [facility] TYPE CODE TESTS RESULT OUT OF RANGE REFERENCE UNITS LAB L150.0585 Slide Review by Pathologist * Normal Result Comment: Absolute gra nulocytosis consistent with response to infection, toxins, tissue injury, stresses or hemorrhage. Slide reviewed by Dr Dottie Sahni on 05/15/25. Performed By: #### L100.0000 , L100.2000, L150.0585 #### Main Laboratory ([facility]) [address] [place] [address] Regan Sahni MD BASIC METABOLIC,NON-FASTING Collected: 05/13/2025 4:54 AM Status: F Source: [facility] TYPE CODE TESTS RESULT OUT OF RANGE REFERENCE UNITS LAB L400.1400 Sodium 139 Normal 135-145 mEq/L LAB L400.1500 Potassium 3.2 Low 3.6-5.0 mEq/L LAB L400.1600 Chloride 105 Normal 101-111 mEq/L LAB L400.1700 Carbon Dioxide 21 Normal 21-32 mEq/L LAB L400.1800 Anion Gap 13 High 4-12 LAB L400.1820 Glucose 126 High 70-110 mg/dL LAB L400.1835 BUN 16 Normal 7-20 mg/dL LAB L400.1840 Creatinine 0.61 Normal 0.60-1.30 mg/dL LAB L400.1845 GFR Calculation > 60 Normal Result Comment: Chronic Kidn ey Disease stages by NKDF Stage eGFR I >90 II 60-89 III 30-59 IV 15-29 V <15 or dialysis Note: Information regarding the eGFR equation used can be found at https://www.kidney.org/uqdh-ucfzy-tnozqzsu. AGE(years) AVERAGE GFR 50-59 93 ml/min/1.73 square meters Note:This result is normalized to 1.73 square meter body surface area. Height and weight are not factored. LAB L400.2100 Calcium 9.70 Normal 8.8-10.5 mg/dL Performed By: #### L400.4475 , L400.5100, L400.0052, L404.6500, L400.0152, L400.0040 #### Main Laboratory ([facility]) [address] [place] [place] [address] Regan Sahni MD MAGNESIUM Collected: 4:54 AM Status: F Source: [facility] TYPE CODE TESTS RESULT OUT OF RANGE REFERENCE UNITS LAB L400.5100 Magnesium 1.7 Low 1.8-2.5 mg/dL Performed By: #### L400.4475 , L400.5100, L400.0052, L404.6500, L400.0152, L400.0040 #### Main Laboratory ([facility]) [address] [facility] [place] [address] Regan Sahni MD PROCALCITONIN Collected: 05/13/2025 4:54 AM Status: F Source: [facility] TYPE CODE TESTS RESULT OUT OF RANGE REFERENCE UNITS LAB L400.0040 Procalcitonin 0.25 Normal ng/mL Result Comment: Suspected Se psis (Continue Antibiotic therapy if patient is clinically unstable) 0.10 - 0.49 ng/mL - Low likelihood of sepsis/ antibiotics discouraged 0.50 - 1.00 ng/mL - Increased likelihood of sepsis/ antibiotics encouraged >1.00 ng/mL - High Risk of sepsis/ antibiotics strongly encouraged Suspected Lower Respiratory Tract Infections (LRTI): 0.10 - 0.24 ng/mL - Low likelihood of bacterial infection/ antibiotics discouraged 0.25 - 0.49 ng/mL - Increased likelihood of bacterial infection/antibiotics encouraged >0.50 ng/mL - High risk of bacterial infection/ antibiotics strongly encouraged Levels 0.50 - 2.00 ng/mL should be interpreted in the clinical context of the patient as a variety of non-infectious conditions such as west, trauma, surgery and severe cardiogenic shock can cause procalcitonin elevations. *Sindi et al., Lancet 2010;375: DOI:10.1016/W2128-4722 [phone] *Ebony Kumar et al., Arch [employer] Med 2011;171:0816-5916 Performed By: #### L400.4475 , L400.5100, L400.0052, L404.6500, L400.0152, L400.0040 #### Main Laboratory ([facility]) [address] [facility] [place] [address] Regan Sahni MD LIPASE Collected: 5 4:54 AM Status: F Source: [facility] TYPE CODE TESTS RESULT OUT OF RANGE REFERENCE UNITS LAB L400.0052 Lipase 40 Normal 21-51 IU/L Performed By: #### L400.4475 , L400.5100, L400.0052, L404.6500, L400.0152, L400.0040 #### Main Laboratory ([facility]) [address] [place] [address] Regan Sahni MD AMYLASE Collected: 5 4:54 AM Status: F Source: [facility] TYPE CODE TESTS RESULT OUT OF RANGE REFERENCE UNITS LAB L400.4475 Amylase 17 Low 30-100 U/L Performed By: #### L400.4475 , L400.5100, L400.0052, L404.6500, L400.0152, L400.0040 #### Main Laboratory ([facility]) [address] [place] [address] Regan Sahni MD PREALBUMIN Collected: 4:54 AM Status: F Source: [facility] TYPE CODE TESTS RESULT OUT OF RANGE REFERENCE UNITS LAB L404.6500 Prealbumin 15.0 Low 16.0-38.0 mg/dL Performed By: #### L400.4475 , L400.5100, L400.0052, L404.6500, L400.0152, L400.0040 #### Main Laboratory ([facility]) [address] [place] [place] [address] Regan Sahni MD RESPIRATORY PANEL ID Collected: 05/12/2025 8:50 PM S tatus: F Source: [facility] Order Comment: Patient being /is admitted OR suspect Pertussis/Mycoplasma? Y TYPE CODE TESTS RESULT OUT OF RANGE REFERENCE UNITS LAB L805.0002 Specimen Source Nasopharynge al Swab Normal Result Comment: Respiratory Panel ID Methodology: Multiplex Nucleic Acid Amplification, NAAT (RT-PCR) LAB L805.0005 Adenovirus Not Detected Normal LAB L805.010 Coronavirus 229E Not Detected Normal LAB L805.015 Coronavirus HKU1 Not Detected Normal LAB L805.020 Coronavirus NL63 Not Detected Normal LAB L805.025 Coronavirus OC43 Not Detected Normal LAB L805.027 SARS-CoV-2 Not Detected Normal Result Comment: Date Reporte d 05/12/25 Testing was performed using the [employer] RP2.1, a real-time, nested multiplexed polymerase chain reaction test designed to simultaneously identify nucleic acids from 22 different viruses and bacteria associated with respiratory tract infection, including SARS-CoV-2, from a single nasopharyngeal swab ([employer]ATOR) specimen. LAB L805.030 Human Metapneumovirus Not Detected Normal LAB L805.035 Human Rhinovirus/Entero virus Not Detected Normal LAB L805.040 Influenza A Not Detected Normal LAB L805.045 Influenza B Not Detected Normal LAB L805.050 Parainfluenza Virus 1 Not Detected Normal LAB L805.055 Parainfluenza Virus 2 Not Detected Normal LAB L805.060 Parainfluenza Virus 3 Not Detected Normal LAB L805.065 Parainfluenza Virus 4 Not Detected Normal LAB L805.070 Respiratory Syncytial Virus Not Detected Normal LAB L805.073 Bordetella parapertussis Not Detected Normal LAB L805.075 Bordetella pertussis Not Detected Normal LAB L805.081 Chlamydia pneumoniae Not Detected Normal LAB L805.085 Mycoplasma pneumoniae Not Detected Normal Performed By: #### L805.000 #### Main Laboratory ([facility]) [address] [place] [place] [address] Regan Sahni MD URINALYSIS W MICRO RFLX CULT Collected: 05/12/2025 7: 56 PM Status: F Source: [facility] Order Comment: Urine Source Urine, Kidney TYPE CODE TESTS RESULT OUT OF RANGE REFERENCE UNITS LAB L300.3300 Color Yellow Normal LAB L300.3400 Appearance Clear Normal LAB L300.3500 Glucose Negative Normal Negative LAB L300.3550 Protein 10 mg/dL Normal Negative LAB L300.3700 Bilirubin Negative Normal Negative LAB L300.3750 Urobilinogen 6 mg/dL Normal 0.2-1.0 LAB L300.3775 pH 7.0 Normal 5.0-8.0 LAB L300.3800 Specific [place] >=1.050 Normal 1.000-1.035 LAB L300.4100 Hemoglobin Negative Normal Negative LAB L300.4150 Ketones Negative Normal Negative LAB L300.4600 Nitrites Negative Normal Negative LAB L300.4700 Leukocytes Negative Normal Negative LAB L300.5000 WBC 0-5 Normal /HPF LAB L300.5050 RBC 0-2 Normal /HPF LAB L300.5100 Epi,Squamous None Normal /HPF LAB L300.6700 Mucous Present Normal LAB L300.7300 UA Reflex Culture No Normal Result Comment: Culture not done per lab protocol Performed By: #### L300.3000 #### Main Laboratory ([facility]) [address] [place] [address] Regan Sahni MD BASIC METABOLIC,NON-FASTING Collected: 05/12/2025 7:06 PM Status: F Source: [facility] TYPE CODE TESTS RESULT OUT OF RANGE REFERENCE UNITS LAB L400.1400 Sodium 137 Normal 135-145 mEq/L LAB L400.1500 Potassium 3.4 Low 3.6-5.0 mEq/L LAB L400.1600 Chloride 106 Normal 101-111 mEq/L LAB L400.1700 Carbon Dioxide 21 Normal 21-32 mEq/L LAB L400.1800 Anion Gap 10 Normal 4-12 LAB L400.1820 Glucose 112 High 70-110 mg/dL LAB L400.1835 BUN 16 Normal 7-20 mg/dL LAB L400.1840 Creatinine 0.57 Low 0.60-1.30 mg/dL LAB L400.1845 GFR Calculation > 60 Normal Result Comment: Chronic Kidn ey Disease stages by NKDF Stage eGFR I >90 II 60-89 III 30-59 IV 15-29 V <15 or dialysis Note: Information regarding the eGFR equation used can be found at https://www.kidney.org/sbym-hnrwl-ewsijkjm. AGE(years) AVERAGE GFR 50-59 93 ml/min/1.73 square meters Note:This result is normalized to 1.73 square meter body surface area. Height and weight are not factored. LAB L400.2100 Calcium 9.40 Normal 8.8-10.5 mg/dL Performed By: #### L400.0152 #### Main Laboratory ([facility]) [address] [place] [address] Regan Sahni MD PROGRESS NOTE - HOSPITALIST Observed: 6:06 PM Status: F Source: [facility] Records Patient: DIONNA CONCEPCION [address] : 1975 [place], [place] [address] Location: [facility] [phone] Unit #: [id number] Progress Note - Hospitalist Rose Sanchez MD Service Dt/Tm: 05/12/25 288 ADDENDUM: Echo done report reviewed Ejection fraction 60 to 65%. Borderline left ventricular hypertrophy, no evidence of ventricular septal defect. No evidence of left ventricular diastolic dysfunction. Bubble study performed no evidence of ASD PFO Addendum Entered by: Rose Sanchez MD on 05/12/25 at 1806 Addendum Signed by: Rose Sanchez MD on 05/12/25 180 <<Signature on File>> <Electronically signed by Rose Sanchez MD> Addendum Signed by: on Assessment/Plan Assessment/Plan (1) Left-sided weakness: Status: Acute Plan: Patient presented with generalized weakness, worsening symptoms. CT head, CTA head and neck. Showing subacute infarction MCA territory. Neurology evaluated the patient. Possibly chronic infarction with poor functional status related to the stroke in January on aspirin. Neurology recommended MRI brain, which was done Old cortical gyral ischemic infarcts with focal atrophy involving the right postcentral gyrus and right lateral occipitotemporal gyrus and smaller old cortical gyral ischemic infarct in the right middle frontal gyrus. Neurology recommended continue aspirin, continue statin. Risk factor modification. PT/OT evaluation. Chest x-ray: No acute thoracic pathology. Neurology recommended infectious workup Will order UA, respiratory panel. Procalcitonin Electrolyte replacement A1c 5 TSH 1.87 Procalcitonin 0.183 leukocytosis 13.4.. (2) Fatigue: Status: Acute Qualifiers: Fatigue type: unspecified Qualified Code(s): R53.83 - Other fatigue Plan: K- 2.9, Potassium replaced. (3) History of right MCA stroke: Status: Acute Plan PT/ OT eval discharge planning Current Code Status AND Diet: 05/11/25 18:30 Code Status Routine Resuscitation Status: Full Code Code Status Order Placed: Code Status Ordered 05/11/25 at 1830 05/11/25 20:09 [facility] Diet Texture: Regular Fluid Restrictions?: No Discussed Patient's Care With: Nurse and Case Management Subjective Subjective: Primary Care Provider: Tay Camara MD Chief Complaint: RT MCA INFARCT/LT SIDED WEAKNESS Patient seen and examined this morning. Complaining of feeling tired, weak and weakness in the left side of the body. Patient Status AND Estimated DC Date Patient Registration Status: Inpatient Objective Physical Exam: GEN: No acute distress, lying comfortably HEENT: No lymphadenopathy, neck is supple Chest: Bilateral air entry, no wheezing or rhonchi CVS: S1 and S2, no gallop or murmur Abdomen: Soft, normal bowel sound, no organomegaly Extremities: No edema bilateral lower extremities. Social determinants of health completed per CM, reviewed. Constitutional: Last Vital Signs Temp Pulse Resp BP Pulse Ox 97.8 F 86 16 126/87 100 05/11/25 14:54 05/12/25 10:17 05/12/25 10:17 05/12/25 11:59 05/12/25 11:59 Admitting (IV Pump) Weight 62.1 kg Actual Weight (Kg) 62.1 kg Data Labs: Hemoglobin A1c 5.0 TSH 1.879 Triglycerides 160 H Cholesterol 238 H LDL Cholesterol Direct 171 H HDL Cholesterol 34 L LDL/HDL Ratio 5.0 H The last 24 hours of labs have been reviewed. Imaging: I have reviewed the diagnostic images in the EMR. 05/11/25 19:14 CT Angio Head Neck WWO Routine 05/12/25 MRI Brain Without Contrast Routine Medications and Comanagement: Medications reviewed separately. Entered by: Rose Sanchez MD on 05/12/25 5796 Report Signed by: Rose Sanchez MD on 05/12/25 6765 <<Signature on File>> <Electronically signed by Rose Sanchez MD> Report Signed by: on CONSULTATION - TELENEUROLOGY Observed: 0 05/12/2025 5:19 PM Status: F Source: [facility] Records Patient: DIONNA CONCEPCION [address] : 1975 [place], [place] [address] Location: [place] [address] Unit #: [id number] [facility] #: [id number] Consultation - TeleNeurology Amari Blunt MD Service Date: 05/12/25 [facility] Tele[facility]urology Consult Services Routine Consult Follow-Up Patient Name: Dionna Concepcion Date of : 1975 Identification Number: Date of Service: 05/12/2025 17:05:59 Diagnosis ??? I63.89 - Cerebrovascular accident (CVA) due to other mechanism ([facility]) Impression 49M with a history of HTN, alcohol disuse, smoking, and clinical stroke event in January 2025 started on aspirin 81 mg daily as an outpatient without completed stroke work up and ongoing symptoms of left sided weakness related to the clinical event as well as 3 months of dizziness and gait imbalance. Overall, there does not appear to have been a significant clinical change, but rather a decompensation with poor functional status at home related to the stroke in January. He initially reported that he underwent work up for this stroke and was started on medications, but it seems the work up was ordered but there is no record in chart that work up was completed for any stroke risk stratification. mri brain Old cortical gyral ischemic infarcts with focal atrophy involving the right postcentral gyrus and right lateral occipitotemporal gyrus and smaller old cortical gyral ischemic infarct in the right middle frontal gyrus. These old infarctions can explain his left ana body deficits that started in January as well as his gaze palsy. As dx: stroke, lost to follow up for work up of stroke when it was acute presumably in January Dizziness dx: orthostatic vs hypokalemia vs cardiogenic vs recrudescence of old stroke sx???vs toxic metabolic??? vs untreated sleep apnea???vs bppv recs: - Asa 81 daily - Check LDL AND hgb a1c - statin daily - PT/OT/REAL TIME TRADER - bp control per primary team, goal normotensive - Address all stroke risk factors including diet, exercise, smoking, blood pressure and glycemic control - Telemetry - PT for BPPV eval / treatment??? - orthostatic vitals??? - consider compression socks / abdominal binder if orthostatic??? - toxic metabolic infectious workup (U/A, COVID/flu +/-RSV, chest xray, UDS etc as per primary team discretion) Neurology to follow??? Subjective admitted Hospital Course Per initial consult note: 49M with a history of stroke who presents to the ED for generalized weakness and ongoing L hemibody symptoms. Patient reports about 5 months ago he had a stroke and has had left sided deficits since that time. He has left sided weakness, sensory deficit, and his whole left side is tingling. He has difficulty with ambulation. He also notes that he just feels generally weak with dizziness for the last 3 months. He states he feels touchy. He is a somewhat poor historian and it is difficult to discern exactly what changed that brought him in today. There does not seem to be a new acute focal deficit in the last 3w but rather a slow decline and decompensation. The patient tells me he was seen for his stroke and given 6 different medications to take but was unable to afford them so he is only taking aspirin 81 mg daily. He does smoke. He also has been drinking. There seems to be some component of confabulation and inconsistencies in his history (initially tells me he has Afib, this is no corroborated on chart, told bedside RN he did not have Afib and only anxiety, has HTN as well) and his timeline does fluctuate; it seems he had stopped drinking but restarted again last night and some this morning. On review of the EMR for better clarity of the patient's history: it appears he was seen by his PCP 02/03 for numbness and weakness on his left side that occurred sometime early January. He was advised to go to the ED at that time but did not. His PCP ordered an MRI Brain, MRA Brain and neck as well as aspirin 81 mg daily. It seems like he did not follow through with the MRI. He has not yet been seen by neurology as his appointment was scheduled too far out. On 03/13 he saw his PCP again, he had not gotten the MRI then. Labs were obtained and LDL was 285 at that time. No other risk stratification work up had been completed by patient at that point. Imaging cta h/n: Negative CTA carotid and CTA brain. mri brain: 1. No acute intracranial abnormality. 2. Old cortical gyral ischemic infarcts with focal atrophy involving the right postcentral gyrus and right lateral occipitotemporal gyrus and smaller old cortical gyral ischemic infarct in the right middle frontal gyrus. Labs k 2.9 on admission Examination 1A: Level of Consciousness - Alert; keenly responsive + 0 1B: Ask Month and Age - Both Questions Right + 0 1C: Blink Eyes AND Squeeze Hands - Performs Both Tasks + 0 2: Test Horizontal Extraocular Movements - Partial Gaze Palsy: Corrects with Oculocephalic Reflex + 1 3: Test Visual Pink - No Visual Loss + 0 4: Test Facial Palsy (Use Grimace if Obtunded) - Normal symmetry + 0 5A: Test Left Arm Motor Drift - No Drift for 10 Seconds + 0 5B: Test Right Arm Motor Drift - No Drift for 10 Seconds + 0 6A: Test Left Leg Motor Drift - No Drift for 5 Seconds + 0 6B: Test Right Leg Motor Drift - No Drift for 5 Seconds + 0 7: Test Limb Ataxia (FNF/Heel-Leonard) - No Ataxia + 0 8: Test Sensation - Normal; No sensory loss + 0 9: Test Language/Aphasia - Normal; No aphasia + 0 10: Test Dysarthria - Normal + 0 11: Test Extinction/Inattention - No abnormality + 0 NIHSS Score: 1 NIHSS Free Text : Gaze palsy - cannot cross midline to the left. LLE drift. Intermittently oriented, then intermittently confused and tangential. This consult was conducted in real time using interactive audio and video technology. Patient was informed of the technology being used for this visit and agreed to proceed. Patient located in hospital and provider located at home/office setting. Telehealth Neurology consultation was provided. I spent minutes providing telehealth care. This includes time spent for face to face visit via telemedicine, review of medical records, imaging studies and discussion of findings with providers, the patient and/or family. Dr Amari Blunt [facility] For Inpatient follow-up with [facility] physician please call [facility] at . As we are not an outpatient service for any post hospital discharge needs please contact the hospital for assistance. If you have any questions for the [facility] physicians or need to reconsult for clinical or diagnostic changes please contact us via [facility] at cc: Amari MORALEZ; Tay Camara MD; [place] MD Dictated by: Amari Blunt MD on 05/12/251716 Entered by: Amari Blunt MD on 05/12/251716 Report Signed by: Amari MORALEZ on 05/12/251718 <<Signature on File>> <Electronically signed by Amari Blunt MD> Report Signed by: on EKG MONITORING Observed: 05/12/2025 5:19 PM Status: F Source: [facility] Patient: DIONNA CONCEPCION Danny [address] : 1975 [place] [address] Location: [facility] [phone] Unit #: [id number] Ordering Phys: Karmen Dalton PA-C EKG Monitoring Fransisco Linares MD Exam Date/Time May 11 2025 15:13:10 Test Reason : Hand to provider for interpretation (Goal: <=10min Blood Pressure : / mmHG Vent. Rate : 099 BPM Atrial Rate : 099 BPM P-R Int : 142 ms QRS Dur : 080 ms QT Int : 382 ms P-R-T Axes : 068 070 048 degrees QTc Int : 490 ms Normal sinus rhythm Nonspecific ST abnormality Abnormal ECG Confirmed by Fransisco Linares ([id number]) on 05/12/2025 5:19:19 PM Referred By: Karmen Dalton Confirmed By:Fransisco Linares Dictated by: Fransisco Linares MD on 05/11/25 1513 Transcribed by: Ornicept M-AT on 05/12/251718 Report Signed by: Fransisco Linares MD on 05/12/251718 ECHOCARDIOGRAPHY Observed: 05/12/2025 2:44 PM Status: F Source: [facility] Patient: DIONNA CONCEPCION [address] : 1975 [place] [address] Location: [place] [address] Unit #: [id number] Ordering Phys: Carol Ang MD Echocardiography Nic Peoples MD Transthoracic Echocardiography Report (TTE) Demographics Patient Name JAMEY VILLAREAL Gender Male J Patient Number [id number] Race Unknown Ethnicity Room Number ER TEMP Corporate ID Date of Study 05/12/2025 Referring Physician Carol Ang MD; Number Date of 1975 Vp Genetic ANDREW Gilman; Age 49 year(s) Interpreting Reading Group; Physician Shelton MORSE, Nic; Procedure Type of Study TTE procedure Procedure Date Date: 05/12/2025 Start: 08:36 AM Patient Status: Routine IP Indications 1) Stroke History:HEAVY SMOKER, STROKE, HEAD CT: + FOR INFARCT Height: 67 inches Weight: 136 pounds BSA: 1.72 m2 BP: 127/101 mmHg Conclusions Summary Normal LV size and function. Ejection fraction is visually estimated at 60-65%. Borderline left ventricular hypertrophy. No evidence of ventricular septal defect. No evidence of LV diastolic dysfunction. Normal right ventricular size and function. RV S' measures 14.8 cm/s. TAPSE measures 2.90 cm. Normal size left atrium. The LA ESV Index (BP) is 12.1 mL/m2. Bubble study was performed with no evidence of ASD or PFO. Normal size right atrium. The aortic valve is trileaflet with good leaflet separation. No evidence of aortic stenosis or regurgitation. No evidence of mitral regurgitaton. No evidence of mitral valve stenosis. Mild mitral annular calcification is present. No evidence of tricuspid regurgitation. No evidence of tricuspid stenosis. There is a pericardial effusion near the RV measuring 1.80 cm. No evidence of tamponade physiology. Technically difficult study due to poor acoustic windows. IVC not well visualized. Signature M-Mode Measurements (in cm) LVIDd (n=3.5-5.7): 4.1 cm Aortic Valve Opening (n=1.5-2.6): 2 LVIDs (n=2.2-4.0): 2.6 cm cm Post. Wall Thickness (n=0.6-1.1): 0.9 RV Supine (n=0.7-2.3): 3.1 cm cm AOR Diam (n=2.0-3.7): 3.5 cm Septal Thickness (n=0.6-1.1): 1.1 cm Fractional Shortening (n>25%):37 % Doppler - Max Velocity (cm/s) AV: 106 cm/s(o=553-850) Aortic Valve Area (Continuity):3.67 cm MV:60.6 cm/s(n=60-130) Mitral Valve Area (Continuity): 3.17 cm TV:67.7 cm/s(n=30-70) PV:100 cm/s(n=60-90) Findings Left Ventricle Normal LV size and function. Ejection fraction is visually estimated at 60-65%. Borderline left ventricular hypertrophy. No evidence of ventricular septal defect. No evidence of LV diastolic dysfunction. Right Ventricle Normal right ventricular size and function. RV S' measures 14.8 cm/s. TAPSE measures 2.90 cm. Left Atrium Normal size left atrium. The LA ESV Index (BP) is 12.1 mL/m2. Bubble study was performed with no evidence of ASD or PFO. Right Atrium Normal size right atrium. Aortic Valve The aortic valve is trileaflet with good leaflet separation. No evidence of aortic stenosis or regurgitation. Mitral Valve No evidence of mitral regurgitaton. No evidence of mitral valve stenosis. Mild mitral annular calcification is present. Tricuspid Valve No evidence of tricuspid regurgitation. No evidence of tricuspid stenosis. Pulmonic Valve Pulmonary Acceleration Time 158 msec. No evidence of any pulmonic regurgitation. No evidence of pulmonic valve stenosis. Pericardial Effusion There is a pericardial effusion near the RV measuring 1.80 cm. No evidence of tamponade physiology. Miscellaneous Technically difficult study due to poor acoustic windows. IVC not well visualized. Valves Mitral Valve Peak E-Wave: 60.6 cm/s Peak A-Wave: 66.1 cm/s P1/2t: 83 msec E/A Ratio: 0.92 Mean Velocity: 55.3 cm/s Peak Gradient: 1.47 mmHg Mean Gradient: 1 mmHg Deceleration Time: 222 msec Area (PHT): 2.65 cm2 Tissue Doppler E' velocity (Lat)7.18 cm/s E Velocity (Med)55.3 cm/s E/E' ratio8.44 Aortic Valve Peak Velocity: 106 cm/s Mean Velocity: 71.9 cm/s Peak Gradient: 4.49 mmHg Mean Gradient: 2 mmHg Area (continuity): 3.67 cm AV VTI: 20.3 cm Cusp Separation: 2 cm LVOT VTI23.7 cm/s Tricuspid Valve Peak A-Wave: 66 cm/s Peak Gradient: 1.83 mmHg Pulmonic Valve Peak Velocity: 100 cm/s Peak Gradient: 4 mmHg Acceleration Time: 158 msec LVOT Peak Velocity: 107 cm/s Mean Velocity: 72.8 cm/s Peak Gradient: 4 mmHg Mean Gradient: 2 mmHg LVOT Diameter: 2 cm LVOT VTI: 23.7 cm Structures Left Atrium LA Dimension: 3.2 cm LA Area: 10.7 cm LA Volume/Index: 20.8 ml /12.1 m Left Ventricle Diastolic Dimension: 4.1 cm Systolic Dimension: 2.6 cm Septum Diastolic: 1.1 cm PW Diastolic: 0.9 cm Area Systolic: 14.3 cm Area Diastolic: 27.3 cm EF (MM-Teich):65 % LV ESV/LV ESV Index: 27 ml/15.7 m LV EDV/LV EDV Index: 70 ml LV Length: 8.73 cm LVOT Diameter: 2 cm Right Ventricle Diastolic Dimension: 3.1 cm Miscellaneous Aorta Aortic Root: 3.5 cm LVOT Diameter: 2 cm cc: Carol Ang MD; Damion Dale DO; Tay Camara MD; Raul Holt MD Dictated by: Nic Peoples MD on 05/12/25 0836 Transcribed by: Ornicept SHANIQUA on 05/12/25 1444 Report Signed by: Nic Peoples MD on 05/12/25 1444 CASE MANAGEMENT DAILY NOTE Observed: 05/2025 1:40 PM Status: F Source: [facility] Case Management Patient: DIONNA CONCEPCION [address] : 1975 [place], [place] [address] Location: [address] [phone] Unit #: [id number] Case Management Daily Note Shelbi Jackson Service Date: 05/12/25 Case Mgmt Daily Note - Plan of Care Wood Drilling Machine Operator Agrees with Attending and Consult Plan: Yes - Patient Preferences AND Goals What is the patient's preference?: Services to be Determined Recommended acute discharge goals: Services to be Determined - Hospital Stay Days Day 1 Comment: 05/11 - Spoke with patient at bedside. Patient has Pavan Huynh. PCP is Pam Camara. director of player personnel is his father, Dionna. Pharmacy is [address] Denies services, DME. He is independent of ADLS and drives. He lives with his brother and father in a 1 story home with no steps to enter. Denies LW/DPOA. Per primary nurse, Jenni, she states that EMS reported that family stated patient has been depressed and having trouble with his left side weakness from his stroke 2 months ago. Also states he has been falling at home. Wood Drilling Machine Operator: Ana Snyder, RN Day 2 Comment: 05/12 - Spoke with pt. MRI completed and pending results. Neuro following. PT/OT ordered and recommended IPR. Rehab consulted to review case and waiting on response. Wood Drilling Machine Operator: Shelbi Jackson - Respiratory Equipment Does the patient use/have any of these devices at home?: N/A - * L * Length of Stay LOS (Including day of Admission and Discharge): 2 LOS Score: 2 - * A * Acuity on Admission ER Provider if admitted from ER (view): RGMAXO Was patient admitted to hospital via Emergency Dept? Score: 3 - * C * Comorbidities Select All Conditions that Apply: Cerebral Disease (Any previous stroke or transient ischemic attack) Comorbidities Total Score: 1 - * E * Emergency Department Visits # of ER visits,6mos prior to admit,excl this admits ER visit: 0 Enter this number or 4 (whichever is smaller): 0 - LACE SCORE LACE Score: 6 - ANTICIPATED DISCHARGE Anticipated Discharge Date: 05/13/25 Entered by: Shelbi Jackson on 05/12/25 1339 Report Signed by: Shelbi Jackson on 05/12/25 1340 <<Signature on File>> <Electronically signed by Shelbi Jackson> Co-Signed by: on HEMOGLOBIN A1C Collected: 05/11/2025 8:10 PM Status: F Source: [facility] TYPE CODE TESTS RESULT OUT OF RANGE REFERENCE UNITS LAB L404.6725 Hgb A1C 5.0 Normal 4.4-6.4 % LAB L404.6730 estimated Average Glucose 97 Normal mg/dL Result Comment: estimated Av erage Glucose(eAG) calculation has been modified to reflect guidelines established by the [place] [employer]. This change does not affect the %A1c,however individuals that closely monitor the eAG may notice a slight shift in their results. Performed By: #### L404.6700 #### Main Laboratory ([facility]) [address] [place] [address] Regan Sahni MD LIPID PANEL Collected: 05/11/2025 8:10 PM Status: F Source: [facility] TYPE CODE TESTS RESULT OUT OF RANGE REFERENCE UNITS LAB L400.0405 dLDL 171 High mg/dL Result Comment: The National Cholesterol Education Program (NCEP) has set the following guidelines (reference values) for cholesterol, LDL: Desirable (optimal): <100 mg/dL Low Risk (near optimal): 100-129 mg/dL Borderline high: 130-159 mg/dL High: 160-189 mg/dL Very high: >=190 mg/dL LAB L400.2301 Cholesterol 238 High <200 mg/dL LAB L400.2500 Triglycerides 160 High <150 mg/dL LAB L401.5300 HDL Cholesterol 34 Low mg/dL Result Comment: The National Cholesterol Education Program (NCEP) has set the following guidelines (reference values) for cholesterol, HDL: Low: <40 mg/dL Normal: 40-60 mg/dL High: >60 mg/dL LAB L401.5350 Chol/HDL Risk 7.0 High 4.0-5.0 LAB L401.5380 dLDL/HDL RISK 5.0 High <3.1 LAB L401.5600 VLDL 32 Normal <39 mg/dL Performed By: #### L404.7150 , L400.0400 #### Main Laboratory ([facility]) [address] [place] [address] Regan Sahni MD TSH REFLEX FREE T4 Collected: 8:10 PM Status: F Source: [facility] TYPE CODE TESTS RESULT OUT OF RANGE REFERENCE UNITS LAB L404.7150 TSH reflex Free T4 1.879 Normal 0.490-4.670 mcIU/mL Performed By: #### L404.7150 , L400.0400 #### Main Laboratory ([facility]) [address] [place] [address] Regan Sahni MD CONSULTATION - TELENEUROLOGY Observed: 0 05/11/2025 7:23 PM Status: F Source: [facility] Medical Records Patient: DIONNA CONCEPCION [address] : 1975 [place], [place] [address] Location: [facility] [phone] [id number] [id number]ation - TeleNeurology Carol Ang MD Service Date: 05/11/25 [facility] Tele[facility] Consult Services Date of Consultation: 05/11/25 Consulting Provider: Carol Ang MD [facility] Tele[facility]urology Consult Services Stat Consult Patient Name: Dionna Concepcion Date of : 1975 Identification Number: Date of Service: 05/11/2025 17:01:34 Diagnosis: ??? I63.89 - Cerebrovascular accident (CVA) due to other mechanism ([facility]) Impression 49M with a history of HTN, alcohol disuse, smoking, and clinical stroke event in January 2025 started on aspirin 81 mg daily as an outpatient without completed stroke work up and ongoing symptoms of left sided weakness related to the clinical event as well as 3 months of dizziness and gait imbalance. Overall, there does not appear to have been a significant clinical change, but rather a decompensation with poor functional status at home related to the stroke in January. He initially reported that he underwent work up for this stroke and was started on medications, but it seems the work up was ordered but he in fact has not completed any stroke risk stratification. CT scan showed today in the ER, confirms the presence of R MCA territory infarction; radiology read as subacute though by clinical history I suspect there is a chronic component. This infarction would explain his left hemibody deficits that started in January as well as his gaze palsy. This is most likely chronic at this point, though in the setting of medication noncompliance he certainly could have acute to subacute on chronic infarctions as well. I would recommend continuing his home aspirin 81 mg daily which has been started after the clinical stroke event. If there are more acute infarctions on his MRI Brain wo Contrast, can consider escalation of antiplatelet therapy at that time. I would also recommend he complete a stroke risk stratification, for which I have placed the orders. Recommendations: Our recommendations are outlined below. Diagnostic Studies : MRI head without contrast CTA head and neck with contrast Holter/Loop Recorder as outpatient with cardiology follow up Laboratory Studies : Lipid panel I ordered Hemoglobin A1c TSH Antithrombotic Medication : Aspirin 81 mg PO daily Statins for LDL goal less than 70 TTE w/ bubble study Nursing Recommendations : IV Fluids, avoid dextrose containing fluids, Maintain euglycemia Neuro checks q4 hrs x 24 hrs and then per shift Head of bed 30 degrees Continue with Telemetry Consultations : Recommend Speech therapy if failed dysphagia screen Physical therapy/Occupational therapy Smoking cessation counselling recommended Inpatient rehab if recommended by physical/occupational therapy DVT Prophylaxis : Lovenox or LMW Heparin Disposition : Neurology will follow Outpatient Neurology follow up in 1-3 weeks ----- ----- Advanced Imaging: Advanced Imaging Deferred because: Does not meet criteria due to being out of the 24-hour window for thrombectomy Metrics: Dispatch Time: 05/11/2025 16:58:44 Callback Response Time: 05/11/2025 17:12:02 Primary Provider Notified of Diagnostic Impression and Management Plan on: 05/11/2025 18:58:11 CT HEAD: I personally reviewed all the CT images that were available to me and it showed: R MCA territory hypodensity, loss of ward white differentiation ----- ----- Chief Complaint: Generalized Weakness History of Present Illness: Patient is a 49 year old Male. 49M with a history of stroke who presents to the ED for generalized weakness and ongoing L hemibody symptoms. Patient reports about 5 months ago he had a stroke and has had left sided deficits since that time. He has left sided weakness, sensory deficit, and his whole left side is tingling. He has difficulty with ambulation. He also notes that he just feels generally weak with dizziness for the last 3 months. He states he feels touchy. He is a somewhat poor historian and it is difficult to discern exactly what changed that brought him in today. There does not seem to be a new acute focal deficit in the last 3w but rather a slow decline and decompensation. The patient tells me he was seen for his stroke and given 6 different medications to take but was unable to afford them so he is only taking aspirin 81 mg daily. He does smoke. He also has been drinking. There seems to be some component of confabulation and inconsistencies in his history (initially tells me he has Afib, this is no corroborated on chart, told bedside RN he did not have Afib and only anxiety, has HTN as well) and his timeline does fluctuate; it seems he had stopped drinking but restarted again last night and some this morning. On review of the EMR for better clarity of the patient's history: it appears he was seen by his PCP 02/03 for numbness and weakness on his left side that occurred sometime early January. He was advised to go to the ED at that time but did not. His PCP ordered an MRI Brain, MRA Brain and neck as well as aspirin 81 mg daily. It seems like he did not follow through with the MRI. He has not yet been seen by neurology as his appointment was scheduled too far out. On 03/13 he saw his PCP again, he had not gotten the MRI then. Labs were obtained and LDL was 285 at that time. No other risk stratification work up had been completed by patient at that point. Past Medical History: ??? Hypertension ??? Stroke ??? There is no history of Diabetes Mellitus ??? There is no history of Atrial Fibrillation Medications: No Anticoagulant use Antiplatelet use: Yes aspirin 81 mg daily Reviewed EMR for current medications Allergies: Reviewed,NKDA Social History: Smoking: Yes Alcohol Use: Yes Family History: There is no family history of premature cerebrovascular disease pertinent to this consultation ROS : 14 Points Review of Systems was performed and was negative except mentioned in HPI. Past Surgical History: There Is No Surgical History Contributory To Today???s Visit There Is Surgical History of: Shoulder surgery. Examination: BP(131/95), Pulse(79), 1A: Level of Consciousness - Alert; keenly responsive + 0 1B: Ask Month and Age - Both Questions Right + 0 1C: Blink Eyes AND Squeeze Hands - Performs Both Tasks + 0 2: Test Horizontal Extraocular Movements - Partial Gaze Palsy: Corrects with Oculocephalic Reflex + 1 3: Test Visual Pink - No Visual Loss + 0 4: Test Facial Palsy (Use Grimace if Obtunded) - Normal symmetry + 0 5A: Test Left Arm Motor Drift - No Drift for 10 Seconds + 0 5B: Test Right Arm Motor Drift - No Drift for 10 Seconds + 0 6A: Test Left Leg Motor Drift - Drift, but doesn't hit bed + 1 6B: Test Right Leg Motor Drift - No Drift for 5 Seconds + 0 7: Test Limb Ataxia (FNF/Heel-Leonard) - No Ataxia + 0 8: Test Sensation - Normal; No sensory loss + 0 9: Test Language/Aphasia - Normal; No aphasia + 0 10: Test Dysarthria - Normal + 0 11: Test Extinction/Inattention - No abnormality + 0 NIHSS Score: 2 NIHSS Free Text : Gaze palsy - cannot cross midline to the left. LLE drift. Intermittently oriented, then intermittently confused and tangential. Spoke with : Dr. Madrid MRI order placed by Dr. Carol Ang in EMR. Bedside team to get the MRI eligibility questionnaire completed and sent to radiology. If you have any questions, please contact the admitting provider. This consult was conducted in real time using interactive audio and video technology. Patient was informed of the technology being used for this visit and agreed to proceed. Patient located in hospital and provider located at home/office setting. Patient is being evaluated for possible acute neurologic impairment and high probability of imminent or life - threatening deterioration.I spent total of 45 minutes providing care to this patient, including time for face to face visit via telemedicine, review of medical records, imaging studies and discussion of findings with providers, the patient and / or family. Dr Carol Ang [facility] For Inpatient follow-up with [facility] physician please call [facility] at . As we are not an outpatient service for any post hospital discharge needs please contact the hospital for assistance. If you have any questions for the [facility] physicians or need to reconsult for clinical or diagnostic changes please contact us via [facility] at . Allergies/Adverse Reactions No Known Drug Allergies Allergy (Verified 05/11/25 15:01) Home Medications amlodipine 10 mg tablet 10 mg PO DAILY 05/11/25 [Confirmed 05/11/25] aspirin 81 mg chewable tablet 1 tab PO DAILY 05/11/25 [Confirmed 05/11/25] Medical History (Updated 05/11/25 @ 18:30 by Stuart Madrid MD) CVA (cerebral vascular accident) left sided defecits Caffeine Amount: 1-2/Day Current Type of Alcohol: Beer Current Alcohol Amount: Socially/Occasionally Smoking Status: Heavy tobacco smoker Type of Tobacco: Cigarettes Smoking Amount: 1 pack per day Family History - Deferred Data: Last Vital Signs Temp Pulse Resp BP Pulse Ox 97.8 F 79 17 131/95 H 96 05/11/25 14:54 05/11/25 18:24 05/11/25 18:24 05/11/25 18:24 05/11/25 18:24 Hematology WBC 13.4 H RBC 4.36 L Hgb 15.0 Hct 41.8 MCV 95.8 MCH 34.4 H MCHC 35.9 RDW 18.8 H Plt Count 342 Neut % (Auto) 69.5 Lymph % (Auto) 18.6 Mcdonough % (Auto) 10.3 H Eos % (Auto) 0.8 Baso % (Auto) 0.8 Nucleat RBC Rel Count 0.2 Absolute Neuts (auto) 9300 H Absolute Lymphs (auto) 2500 Absolute Monos (auto) 1400 H Absolute Eos (auto) 100 Absolute Basos (auto) 100 Anisocytosis 1+ Coagulation PT 11.6 INR 0.98 Chemistry Sodium 139 Potassium 2.9 L Chloride 101 Carbon Dioxide 22 Anion Gap 16 H BUN 21 H Creatinine 0.73 GFR Calculation > 60 Random Glucose 109 Calcium 10.00 Magnesium 1.9 Total Bilirubin 0.8 AST 41 ALT 46 H Alkaline Phosphatase 68 Troponin I High Sens 6 Total Protein 7.6 Albumin 4.6 Albumin/Globulin Ratio 1.5 Procalcitonin 0.18 Toxicology Alcohol, Quantitative < 0.010 Patient was informed the Neurology Consult would happen via telehealth (remote video) and consented to receiving care in this manner. cc: Carol Ang MD; Tay Camara MD; Stuart Madrid MD Dictated by: Carol Ang MD on 05/11/251922 Entered by: Carol Ang MD on 05/11/251922 Report Signed by: Carol Ang MD on 05/11/251922 <<Signature on File>> <Electronically signed by Carol Ang MD> Report Signed by: on CT ANGIO HEAD NECK WWO Observed: 025 7:16 PM Status: F Source: [facility] Radiology Department Patient: DIONNA CONCEPCION[address]. : 1975 Sex: Mirta Schilling [place] [id number] Location: [place] [address] Unit #: [id number] Ordering Phys: Carol Ang MD Exam Date: 05/11/25 Exam: CT CT Angio Head Neck WWO Result: See Report EXAM: CT ANGIOGRAPHY HEAD AND NECK WITH INTRAVENOUS CONTRAST CLINICAL INDICATION: R MCA stroke - subacute to chronic TECHNIQUE: [place]/head and neck CT angiography protocol performed with intravenous contrast. This CT exam was performed using one or more of the following dose reduction techniques: automated exposure control, adjustment of the mA and/or kV according to patient size, and/or use of iterative reconstruction technique. MIP reconstructed images were created and reviewed. CONTRAST: IV Omnipaque 350 100 mL COMPARISON: No relevant prior studies available. FINDINGS: HEAD: RIGHT ANTERIOR CEREBRAL ARTERY: Unremarkable. No occlusion or significant stenosis. Anterior communicating artery is present. No aneurysm. RIGHT MIDDLE CEREBRAL ARTERY: Unremarkable. No occlusion or significant stenosis. No aneurysm. RIGHT POSTERIOR CEREBRAL ARTERY: Unremarkable. No occlusion or significant stenosis. No aneurysm. RIGHT INTRACRANIAL INTERNAL CAROTID ARTERY: Unremarkable. No significant stenosis. No dissection or occlusion. RIGHT INTRACRANIAL VERTEBRAL ARTERY: Unremarkable. No significant stenosis. No dissection or occlusion. LEFT ANTERIOR CEREBRAL ARTERY: Unremarkable. No occlusion or significant stenosis. No aneurysm. LEFT MIDDLE CEREBRAL ARTERY: Unremarkable. No occlusion or significant stenosis. No aneurysm. LEFT POSTERIOR CEREBRAL ARTERY: Unremarkable. No occlusion or significant stenosis. No aneurysm. LEFT INTRACRANIAL INTERNAL CAROTID ARTERY: Unremarkable. No significant stenosis. No dissection or occlusion. LEFT INTRACRANIAL VERTEBRAL ARTERY: Unremarkable. No significant stenosis. No dissection or occlusion. BASILAR ARTERY: Unremarkable. No occlusion or significant stenosis. No aneurysm. OTHER VASCULATURE: No vascular malformation. NECK: RIGHT COMMON CAROTID ARTERY: Unremarkable. No significant stenosis. No dissection or occlusion. RIGHT EXTRACRANIAL INTERNAL CAROTID ARTERY: Unremarkable. No significant stenosis. No dissection or occlusion. RIGHT EXTERNAL CAROTID ARTERY: Unremarkable. No occlusion. RIGHT EXTRACRANIAL VERTEBRAL ARTERY: Unremarkable. No significant stenosis. No dissection or occlusion. LEFT COMMON CAROTID ARTERY: Unremarkable. No significant stenosis. No dissection or occlusion. LEFT EXTRACRANIAL INTERNAL CAROTID ARTERY: Unremarkable. No significant stenosis. No dissection or occlusion. LEFT EXTERNAL CAROTID ARTERY: Unremarkable. No occlusion. LEFT EXTRACRANIAL VERTEBRAL ARTERY: Unremarkable. No significant stenosis. No dissection or occlusion. BRACHIOCEPHALIC AND SUBCLAVIAN ARTERIES: Unremarkable as visualized. No occlusion or significant stenosis. LUNG APICES: Unremarkable as visualized. HEAD and NECK: BONES/JOINTS: Unremarkable. No discrete lytic or blastic abnormalities. SOFT TISSUES: Unremarkable. CAROTID STENOSIS REFERENCE USING NASCET CRITERIA: % ICA stenosis = (1 - narrowest ICA diameter/diameter of distal cervical ICA) x 100. Mild - <50% stenosis. Moderate - 50-69% stenosis. Severe - 70-94% stenosis. Near occlusion - 95-99% stenosis. Occluded - 100% stenosis. IMPRESSION: Negative CTA carotid and CTA brain. Electronically Signed: Blaine Gipson MD at 22:53 EDT , cc: Carol Ang MD; Tay Camara MD Dictated by: Blaine Gipson MD on 05/11/252252 Transcribed by: Blaine Gipson MD on 05/11/252252 Report Signed by: Blaine Gipson MD on 05/11/252252 MRI BRAIN WITHOUT CONTRAST Observed: 04/2025 6:29 PM Status: F Source: [facility] Radiology Department Patient: DIONNA CONCEPCION [address] : 1975 Sex: Nanci Davis [id number] Location: [place] [address] Unit #: [id number] Ordering Phys: Stuart Madrid MD Exam Date: 05/12/25 Exam: MRI MRI Brain Without Contrast Result: See Report EXAM: MR HEAD WITHOUT INTRAVENOUS CONTRAST CLINICAL INDICATION: EXCESSIVE FATIGUE, GENERALIZED WEAKNESS, PMH OF CVA X2 MOS AGO, HTN TECHNIQUE: Multiplanar and multisequence MR images of the brain were obtained without intravenous contrast. COMPARISON: CTA head and neck with contrast 05/11/2025. FINDINGS: BRAIN AND EXTRA-AXIAL SPACES: No diffusion restriction to suspect acute or subacute ischemic infarct. There are old cortical gyral ischemic infarct with focal atrophy involving the right postcentral gyrus and right lateral occipitotemporal gyrus. Smaller old cortical gyral ischemic infarct in the right middle frontal gyrus. No intra- or extra-axial hemorrhage. No intracranial mass or mass effect. Posterior fossa structures are unremarkable. No hydrocephalus. Basal cisterns are patent. SELLA: Unremarkable. Normal sella turcica, pituitary gland, infundibular stalk, optic chiasm and hypothalamus. AUDITORY SYSTEM: Unremarkable. The internal auditory canals are patent. BONES/JOINTS: Unremarkable. No discrete lytic or blastic abnormalities. SINUSES: Unremarkable as visualized. Clear. MASTOID AIR CELLS: Unremarkable as visualized. Clear. ORBITS: Unremarkable as visualized. Both globes, extraocular muscles, optic nerves and retrobulbar fat appear unremarkable. VASCULATURE: Unremarkable as visualized. Normal flow voids in the major intracranial circulation. IMPRESSION: 1. No acute intracranial abnormality. 2. Old cortical gyral ischemic infarcts with focal atrophy involving the right postcentral gyrus and right lateral occipitotemporal gyrus and smaller old cortical gyral ischemic infarct in the right middle frontal gyrus. Electronically Signed: Gage Ta MD at 13:51 EDT , cc: Tay Camara MD; Stuart Madrid MD Dictated by: Gage Ta MD on 05/12/25 135 Transcribed by: Gage aT on 05/12/25 135 Report Signed by: Gage Ta MD on 05/12/25 1351 CASE MANAGEMENT ADMISSION Observed: 04/2025 5:29 PM Status: F Source: [facility] Case Management Patient: DIONNA CONCEPCION [address] : 1975 [place], [place] [address] Location: [facility] [phone] Unit #: [id number] Case Management Admission Ana Snyder RN Service Date: 05/11/25 Case Mgmt Admission/Disch Plan - Patient Preferences AND Goals What is the patient's preference?: Services to be Determined Recommended acute discharge goals: Services to be Determined - Hospital Stay Day Day 1 Comment: 05/11 - Spoke with patient at bedside. Patient has Tad Ambetter. PCP is Pam Camara. director of player personnel is his father, Dionna. Pharmacy is [facility]. Denies services, DME. He is independent of ADLS and drives. He lives with his brother and father in a 1 story home with no steps to enter. Denies LW/DPOA. Per primary nurse, Jenni, she states that EMS reported that family stated patient has been depressed and having trouble with his left side weakness from his stroke 2 months ago. Also states he has been falling at home. Wood Drilling Machine Operator: Ana Snyder, RN - Demographics Current Diagnosis(s): right MCA infarct, left weakness Information Given by: Patient Primary Insurance: Tad Ambetter Prescription Coverage: Yes Family/Caregiver Contact: Dionna Loving Relationship: father Does the patient have VA services?: No Does the patient have a [facility] provider?: Yes - Readmission Information Was the patient readmitted within the past 30 days?: No Where was the patient admitted from?: Home Does Patient have any Services in Place?: No - Healthcare Decisions Code Status per Patient Request (Full Code, DNRCC, DNR-CCA with Intubation, DNR- CCA no Intubation): Full Code Durable Power of Cable Splicer Helper for Health Care: No Directive, No SS Referral [facility] DNR Comfort Care: No Directive, No SS Referral [facility] DNR Comfort Care Arrest: No Directive, No SS Referral - Mental Status Prior Mental Status: Alert and Oriented - Living Situation Home Situation: Lives with Father, Lives with Family Levels: 1 Stairs: No Does the patient drive?: Yes - Skilled Days Have you been in the hospital in the past 60 days?: No - Level of Function Prior Level of Ambulation: Independent Prior Level of Personal Care: Independent Prior Level of Driving: Independent Prior Level of Grocery Shopping: Independent Prior Level of House Keeping: Independent Prior Level of Meal Preparation: Independent Is Patient a Fall Risk: No - Respiratory Equipment Does the patient use/have any of these devices at home?: N/A - Medications Medication Compliance: Insurance Coverage What pharmacy do you use?: [facility] - Food Scarcity Screening -in the past month?: No -within the past 3 months?: No If Yes to either question, notify National [employer]ruiter.: No - Discharge Plan Discharge Plan Discussed With: Patient Understood: Yes Barriers to Discharge: right MCA infarct, left weakness - Admission Completed CM Admission Assessment is Completed: Yes - * L * Length of Stay LOS (Including day of Admission and Discharge): 2 LOS Score: 2 - * A * Acuity on Admission ER Provider if admitted from ER (view): RGMAXO Was patient admitted to hospital via Emergency Dept? Score: 3 - * C * Comorbidities Select All Conditions that Apply: Cerebral Disease (Any previous stroke or transient ischemic attack) Comorbidities Total Score: 1 - * E * Emergency Department Visits # of ER visits,6mos prior to admit,excl this admits ER visit: 0 Enter this number or 4 (whichever is smaller): 0 - LACE SCORE LACE Score: 6 - ANTICIPATED DISCHARGE Anticipated Discharge Date: 05/13/25 Entered by: Ana Snyder RN on 05/11/25 7155 Report Signed by: Ana Snyder RN on 05/11/25 4207 <<Signature on File>> <Electronically signed by Ana Snyder RN> Co-Signed by: on SOCIAL DETERMINANTS Observed: 05/11/2025 5:24 PM Status: F Source: [facility] Case Management Patient: DIONNA CONCEPCION [address] : 1975 [place], [place] [address] Location: [phone] Unit #: [id number] Social Determinants Ana Snyder RN Service Date: 05/11/25 Social Determinants of Health - Family AND Home What is your current living situation?: I presently have a place to live Problems where you live: No known problems - Money AND Resources In past 12 months, food didn't last until money to buy more: Never true Past 12 mos, fear food will run out before able to buy more: Never true In past 12 months, lack of transportation kept you from medical appts, meetings, work, or getting things needed for daily living: No In the past 12 months, utilities in danger of being shut off: No - Social AND Emotional Health How often does anyone, including family, friends and others, physically hurt you: Never How often does anyone, including family, friends and others, insult or talk down to you: Never How often does anyone, including family, friends and others, threaten you with harm: Never How often does anyone, including family, friends and others, scream or curse at you: Never Safety Score: 4 Entered by: Ana Snyder RN on 05/11/251723 Report Signed by: Ana Snyder RN on 05/11/251723 <<Signature on File>> <Electronically signed by Ana Snyder RN> Co-Signed by: on CT HEAD CERVICAL SPINE WO Observed: 04/2025 3:15 PM Status: F Source: [facility] Radiology Department Patient: DIONNA CONCEPCION [address] : 1975 Sex: Nanci [place] [address] Location: [phone] Unit #: [id number] Ordering Phys: Karmen Dalton PA-C Exam Date: 05/11/25 Exam: CT CT Head Cervical Spine WO Result: See Report EXAM: CT HEAD AND CERVICAL SPINE WITHOUT INTRAVENOUS CONTRAST CLINICAL INDICATION: Today patient reports feeling and quot;out of it and quot;. c/o generalized weakness, fatigue and dizziness. patient reports he had a stroke 2 months ago, has left sided deficits- weakness, numbness and facial droop. Pt is also a recovering alcoholic- drank for the first time last night in months. TECHNIQUE: Helically acquired images were obtained of the head/brain and cervical spine without intravenous contrast. 2D reformatted images were reviewed. This CT exam was performed using one or more of the following dose reduction techniques: automated exposure control, adjustment of the mA and/or kV according to patient size, and/or use of iterative reconstruction technique. COMPARISON: No relevant prior studies available. FINDINGS: BRAIN AND EXTRA-AXIAL SPACES: There is decreased density in the posterior right frontal lobe compatible with subacute ischemia. No intra- or extra-axial hemorrhage. No intracranial mass or mass effect. Posterior fossa structures are unremarkable. Ventricles are appropriate for age. No hydrocephalus. Basal cisterns are patent. SKULL: Unremarkable. No discrete lytic or blastic abnormalities. SINUSES: Unremarkable as visualized. Clear. MASTOID AIR CELLS: Unremarkable. Clear. VERTEBRAE: Unremarkable. No fracture. No traumatic subluxation. No discrete lytic or blastic abnormality. Normal alignment. Normal craniocervical junction and cervicothoracic junction. DISCS/SPINAL CANAL/NEURAL FORAMINA: Unremarkable. Disc heights are preserved. No critical stenosis. SOFT TISSUES: Unremarkable. No prevertebral soft tissue swelling. VASCULATURE: There are no carotid artery calcifications. LYMPH NODES: Unremarkable. No cervical adenopathy. LUNG APICES: Unremarkable as visualized. Clear. IMPRESSION: 1. Hypodensity in the posterior right frontal lobe which may represent a subacute right MCA infarct. No hemorrhage is identified. Further evaluation with MRI may be beneficial. 2. No acute abnormality in the cervical spine. Electronically Signed: Blaine Gipson MD at 16:31 EDT , cc: Karmen Dalton PA-C; Tay Camara MD Dictated by: Blaine Gipson MD on 05/11/25 1631 Transcribed by: Blaine Gipson MD on 05/11/25 1631 Report Signed by: Blaine Gipson MD on 05/11/25 1631 PROTHROMBIN TIME Collected: 3:14 PM Status: F Source: [facility] Order Comment: Is Patient on Coumadin (Warfarin)? Unknown TYPE CODE TESTS RESULT OUT OF RANGE REFERENCE UNITS LAB L200.0300 PT 11.6 Normal 9.6-13.3 Sec LAB L200.0400 INR 0.98 Normal 0.9-1.2 Result Comment: Standard dos e INR: 2.0-3.0 High dose INR: 2.5-3.5 Performed By: #### L200.0200 #### Main Laboratory ([facility]) [address] [place] [address] Regan Sahni MD CBC WITH DIFFERENTIAL Collected: 05/11/2025 3:14 PM Status: F Source: [facility] Order Comment: Reason for pr ocedure Chest Pain symptoms TYPE CODE TESTS RESULT OUT OF RANGE REFERENCE UNITS LAB L100.0100 WBC 13.4 High 4.4-10.5 th/cmm LAB L100.0300 RBC 4.36 Low 4.50-6.00 mil/cmm LAB L100.0400 Hemoglobin 15.0 Normal 13.5-16.5 gm/dL LAB L100.0500 Hematocrit 41.8 Normal 40.0-49.0 % LAB L100.0600 MCV 95.8 Normal 80-97 CU DEIDRA LAB L100.0700 MCH 34.4 High 27.5-33.0 PG LAB L100.0800 MCHC 35.9 Normal 33.0-36.0 gm/dL LAB L100.0900 RDW 18.8 High 12.0-16.0 % LAB L100.1000 Platelet Count 342 Normal 150-400 th/cmm LAB L100.1200 Neut-Auto Diff 69.5 Normal 40-70 % LAB L100.1300 Lymph- Auto Diff 18.6 Normal 15-45 % LAB L100.1400 Mcdonough- Auto Diff 10.3 High 2-10 % LAB L100.1425 EOS-Auto Diff 0.8 Normal 0-6 % LAB L100.1450 Baso- Auto Diff 0.8 Normal 0-2 % LAB L100.1470 NRBC-Auto 0.2 Normal <1 /100 WBC LAB L100.1475 Abs Neut Count 9300 High 6357-6137 /cmm LAB L100.1480 Abs Lymph Count 2500 Normal 9264-9282 /cmm LAB L100.1485 Abs Mcdonough Count 1400 High 0-800 /cmm LAB L100.1490 Abs Eos Count 100 Normal 0-500 /cmm LAB L100.1495 Abs Baso Count 100 Normal 0-200 /cmm LAB L100.4300 Anisocytosis 1+ Normal Performed By: #### L100.0000 #### Main Laboratory ([facility]) [address] [place] [address] Regan Sahni MD PROCALCITONIN Collected: 05/11/2025 3:14 PM Status: F Source: [facility] TYPE CODE TESTS RESULT OUT OF RANGE REFERENCE UNITS LAB L400.0040 Procalcitonin 0.18 Normal ng/mL Result Comment: Suspected Se psis (Continue Antibiotic therapy if patient is clinically unstable) 0.10 - 0.49 ng/mL - Low likelihood of sepsis/ antibiotics discouraged 0.50 - 1.00 ng/mL - Increased likelihood of sepsis/ antibiotics encouraged >1.00 ng/mL - High Risk of sepsis/ antibiotics strongly encouraged Suspected Lower Respiratory Tract Infections (LRTI): 0.10 - 0.24 ng/mL - Low likelihood of bacterial infection/ antibiotics discouraged 0.25 - 0.49 ng/mL - Increased likelihood of bacterial infection/antibiotics encouraged >0.50 ng/mL - High risk of bacterial infection/ antibiotics strongly encouraged Levels 0.50 - 2.00 ng/mL should be interpreted in the clinical context of the patient as a variety of non-infectious conditions such as west, trauma, surgery and severe cardiogenic shock can cause procalcitonin elevations. *Sindi et al., Lancet 2010;375: DOI:10.1016/D6126-2703 [id number] *Ebony Kumar et al., Arch [employer] Med 2011;171:7062-7283 Performed By: #### L400.0040 , L400.0076, L400.5100, L400.0415, L402.2305 #### Main Laboratory ([facility]) [address] [place] [address] Regan Sahni MD COMPREHENSIVE METABOLIC PANEL Collected: 05/11/2025 3 :14 PM Status: F Source: [facility] TYPE CODE TESTS RESULT OUT OF RANGE REFERENCE UNITS LAB L400.1400 Sodium 139 Normal 135-145 mEq/L LAB L400.1500 Potassium 2.9 Low 3.6-5.0 mEq/L LAB L400.1600 Chloride 101 Normal 101-111 mEq/L LAB L400.1700 Carbon Dioxide 22 Normal 21-32 mEq/L LAB L400.1800 Anion Gap 16 High 4-12 LAB L400.1820 Glucose 109 Normal 70-110 mg/dL Result Comment: *This refere nce range applies to fasting specimens only. LAB L400.1835 BUN 21 High 7-20 mg/dL LAB L400.1840 Creatinine 0.73 Normal 0.60-1.30 mg/dL LAB L400.1845 GFR Calculation > 60 Normal Result Comment: Chronic Kidn ey Disease stages by NKDF Stage eGFR I >90 II 60-89 III 30-59 IV 15-29 V <15 or dialysis Note: Information regarding the eGFR equation used can be found at https://www.kidney.org/vvvy-wdevg-arwecths. AGE(years) AVERAGE GFR 50-59 93 ml/min/1.73 square meters Note:This result is normalized to 1.73 square meter body surface area. Height and weight are not factored. LAB L400.1900 AST/SGOT 41 Normal 15-41 IU/L LAB L400.1950 Alk Phos 68 Normal 41-137 IU/L LAB L400.2000 Bili,Total 0.8 Normal 0.2-1.0 mg/dL LAB L400.2100 Calcium 10.00 Normal 8.8-10.5 mg/dL LAB L400.2120 Albumin 4.6 Normal 3.5-5.0 g/dL LAB L400.2140 Total Protein 7.6 Normal 6.2-8.0 g/dL LAB L400.2160 Alb/Glob Ratio 1.5 Normal 1.5-2.5 LAB L400.4400 ALT/SGPT 46 High 10-40 IU/L Performed By: #### L400.0040 , L400.0076, L400.5100, L400.0415, L402.2305 #### Main Laboratory ([facility]) [address] [place] [address] Regan Sahni MD HS TROPONIN I PROFILE Collected: 2024 3:14 PM Status: F Source: [facility] TYPE CODE TESTS RESULT OUT OF RANGE REFERENCE UNITS LAB L400.0417 hs Troponin-I 6 Normal 0-20 ng/L Result Comment: Troponin I, High Sensitivity is below the upper reference limit (21 ng/L) and results are not consistent with myocardial infarction or injury, provided the specimen was collected more than 3-hours from the onset of symptoms. Patients with active symptoms, ischemic ECG changes and/or concerning clinical presentations should be considered for urgent evaluation irrespective of troponin results. Performed By: #### L400.0040 , L400.0076, L400.5100, L400.0415, L402.2305 #### Main Laboratory ([facility]) [address] [place] [address] Regan Sahni MD MAGNESIUM Collected: 3:14 PM Status: F Source: [facility] TYPE CODE TESTS RESULT OUT OF RANGE REFERENCE UNITS LAB L400.5100 Magnesium 1.9 Normal 1.8-2.5 mg/dL Performed By: #### L400.0040 , L400.0076, L400.5100, L400.0415, L402.2305 #### Main Laboratory ([facility]) [address] [place] [address] Regan Sahni MD ALCOHOL Collected: 3:14 PM Status: F Source: [facility] TYPE CODE TESTS RESULT OUT OF RANGE REFERENCE UNITS LAB L402.2305 Alcohol < 0.010 Normal gm/dL Performed By: #### L400.0040 , L400.0076, L400.5100, L400.0415, L402.2305 #### Main Laboratory ([facility]) [address] [place] [address] Regan Sahni MD XR CHEST 1 VIEW PORTABLE Observed: 05/11 3:12 PM Status: F Source: [facility] Radiology Department Patient: DIONNA CONCEPCION [address] : 1975 Sex: [place] [address] Location: [phone] Unit #: [id number] Ordering Phys: Karmen Dalton PA-C Exam Date: 05/11/25 Exam: MAIN XR Chest 1 View Portable Result: See Report STUDY: X-RAY CHEST REASON FOR EXAM: Male, 49 years old. Weakness TECHNIQUE: Frontal view of the chest COMPARISON: None. FINDINGS: The lungs are hyperinflated, but clear. There are no pleural effusions. There is no pneumothorax. The heart is normal in size. The visualized osseous structures are within normal limits. IMPRESSION: No acute thoracic pathology. Electronically Signed: Logan Lopez MD at 16:05 EDT , cc: Karmen Dalton PA-C; Tay Camara MD Dictated by: Logan Lopez MD on 05/11/25 160 Transcribed by: Logan Lopez MD on 05/11/25 160 Report Signed by: Logan Lopez MD on 05/11/25 160 COMPREHENSIVE METABOLIC PANEL Collected : 03/13/2025 12:26 PM Status: F Source: [facility] Order Comment: Is Patient Fa sting? Yes TYPE CODE TESTS RESULT OUT OF RANGE REFERENCE UNITS LAB L400.1400 Sodium 130 Low 135-145 mEq/L LAB L400.1500 Potassium 4.7 Normal 3.6-5.0 mEq/L LAB L400.1600 Chloride 95 Low 101-111 mEq/L LAB L400.1700 Carbon Dioxide 23 Normal 21-32 mEq/L LAB L400.1800 Anion Gap 12 Normal 4-12 LAB L400.1820 Glucose 139 High 70-110 mg/dL LAB L400.1835 BUN 15 Normal 7-20 mg/dL LAB L400.1840 Creatinine 1.05 Normal 0.60-1.30 mg/dL LAB L400.1845 GFR Calculation > 60 Normal Result Comment: Chronic Kidn ey Disease stages by NKDF Stage eGFR I >90 II 60-89 III 30-59 IV 15-29 V <15 or dialysis Note: Information regarding the eGFR equation used can be found at https://www.kidney.org/dyyj-osgql-qlvxwluj. AGE(years) AVERAGE GFR 50-59 93 ml/min/1.73 square meters Note:This result is normalized to 1.73 square meter body surface area. Height and weight are not factored. LAB L400.1900 AST/SGOT 109 High 15-41 IU/L LAB L400.1950 Alk Phos 102 Normal 41-137 IU/L LAB L400.2000 Bili,Total 1.0 Normal 0.2-1.0 mg/dL LAB L400.2100 Calcium 10.30 Normal 8.8-10.5 mg/dL LAB L400.2120 Albumin 4.7 Normal 3.5-5.0 g/dL LAB L400.2140 Total Protein 8.0 Normal 6.2-8.0 g/dL LAB L400.2160 Alb/Glob Ratio 1.4 Low 1.5-2.5 LAB L400.4400 ALT/SGPT 52 High 10-40 IU/L Performed By: #### L400.0400 , L400.0076 #### Main Laboratory ([facility]) [address] [place] [address] Regan Sahni MD LIPID PANEL Collected: 03/13/2025 12:26 PM Status: F Source: [facility] Order Comment: Is Patient Fa sting? Yes TYPE CODE TESTS RESULT OUT OF RANGE REFERENCE UNITS LAB L400.0405 dLDL 285 High mg/dL Result Comment: The National Cholesterol Education Program (NCEP) has set the following guidelines (reference values) for cholesterol, LDL: Desirable (optimal): <100 mg/dL Low Risk (near optimal): 100-129 mg/dL Borderline high: 130-159 mg/dL High: 160-189 mg/dL Very high: >=190 mg/dL LAB L400.2301 Cholesterol 357 High <200 mg/dL LAB L400.2500 Triglycerides 225 High <150 mg/dL LAB L401.5300 HDL Cholesterol 53 Normal mg/dL Result Comment: The National Cholesterol Education Program (NCEP) has set the following guidelines (reference values) for cholesterol, HDL: Low: <40 mg/dL Normal: 40-60 mg/dL High: >60 mg/dL LAB L401.5350 Chol/HDL Risk 6.7 High 4.0-5.0 LAB L401.5380 dLDL/HDL RISK 5.3 High <3.1 LAB L401.5600 VLDL 45 High <39 mg/dL Performed By: #### L400.0400 , L400.0076 #### Main Laboratory ([facility]) [address] [place] [address] Regan Sahni MD CBC WITH DIFFERENTIAL Collected: 03/13/2025 12:26 PM Status: F Source: [facility] TYPE CODE TESTS RESULT OUT OF RANGE REFERENCE UNITS LAB L100.0100 WBC 14.5 High 4.4-10.5 th/cmm LAB L100.0300 RBC 4.43 Low 4.50-6.00 mil/cmm LAB L100.0400 Hemoglobin 14.9 Normal 13.5-16.5 gm/dL LAB L100.0500 Hematocrit 43.4 Normal 40.0-49.0 % LAB L100.0600 MCV 97.8 High 80-97 CU DEIDRA LAB L100.0700 MCH 33.7 High 27.5-33.0 PG LAB L100.0800 MCHC 34.4 Normal 33.0-36.0 gm/dL LAB L100.0900 RDW 18.3 High 12.0-16.0 % LAB L100.1000 Platelet Count 329 Normal 150-400 th/cmm LAB L100.1200 Neut-Auto Diff 62.7 Normal 40-70 % LAB L100.1300 Lymph- Auto Diff 23.6 Normal 15-45 % LAB L100.1400 Mcdonough- Auto Diff 11.0 High 2-10 % LAB L100.1425 EOS-Auto Diff 1.6 Normal 0-6 % LAB L100.1450 Baso- Auto Diff 1.1 Normal 0-2 % LAB L100.1470 NRBC-Auto 0.2 Normal <1 /100 WBC LAB L100.1475 Abs Neut Count 9100 High 1266-6394 /cmm LAB L100.1480 Abs Lymph Count 3400 Normal 5827-0803 /cmm LAB L100.1485 Abs Mcdonough Count 1600 High 0-800 /cmm LAB L100.1490 Abs Eos Count 200 Normal 0-500 /cmm LAB L100.1495 Abs Baso Count 200 Normal 0-200 /cmm LAB L100.4300 Anisocytosis 1+ Normal Performed By: #### L100.0000 #### Main Laboratory ([facility]) [address] [place] [address] Regan Sahni MD PSA SCREEN Collected: 5 12:26 PM Status: F Source: [facility] TYPE CODE TESTS RESULT OUT OF RANGE REFERENCE UNITS LAB L401.0610 PSA Screen 1.60 Normal ng/mL Result Comment: TOTAL PSA NORMAL RANGE: 0.0 - 4.0 ng/mL Several recent studies have found that 22% of men with PSA levels between 2.6 ng/mL and 4.0 ng/mL were found to have prostate cancer(1). Therefore, the threshold value of 4.0 ng/mL may not adequately predict a large number of prostate cancers. The National Comprehensive Cancer Network(NCCN) and the [place] Cancer Society have recommended consideration for Biopsy of Prostate in cases with PSA values between 2.6 ng/mL and 4.0 ng/mL regardless of age and race(2). Reference: (1)[facility] Vol 31,No.4,Page 1-10,2005 (2)NCCN Practice Guidelines in Oncology - V.1.2005 *Test is performed via a two-site immunoenzymatic sandwich assay. *Markers are not specific for malignancy and values may vary by method. Values obtained with different assay methods cannot be used interchangeably. Do not interpret result as absolute evidence of the presence or the absence of malignant disease. Performed By: #### L401.0610 #### Main Laboratory ([facility]) [address] [place] [address] Regan Sahni MD ALLERGIES DATE TYPE / CODE NAME / CODE REACTION SEVERITY SOURCE 05/11/2025 Allergy/[id number] 6(SNOMED CT) No Known Drug Allergies [facility] ENCOUNTERS ADMIT/DISCHARGE ACCOUNT NUMBER ADMITTING ENCOUNTER CLASS LOCATION SOURCE 05/12/2025/ 5 [id number] [place] [facility] ed: A [facility] 03/13/2025/ 5 [id number] [facility] ng:LMNL [facility] 02/03/2025/ 5 [id number] [facility] ENCOUNTER GUARANTOR PAYER SUBSCRIBER SOURCE 05/12/2025 [address] [place] [address] Primary [facility] Number: [id number] Date:1871-01-86YX MARIA DEL CARMEN CaceresCLARANAIDA ROSA [address]RA: DIONNA CONCEPCIONDOB: [id number] [place] [address]Lty: () [facility] 05/12/2025 Secondary Insurance:100 MEDICAIDPolicy Number: [id number] Date:6521-69-21[address] [address]SI: DIONNA SRINIVASANTUSHDOB: [id number] [place] [address]Emd: () [facility] 05/12/2025 Tertiary Insurance:SELF PAYPolicy Number: Effective Date:100 [place], [place] [address]SF: NOT GIVENUNK [facility] 03/13/2025 DIONNA [address] [place] [address] Primary Insurance:PAVAN SRIRPolicy Number: [id number] Date:6493-27-82RY [facility] [address] [place] [address]RZ: DIONNA TAVERAB: [id number] [place] [address]Xbv: () [facility] 03/13/2025 Secondary Insurance:SELF PAYPolicy Number: Effective Date:100 [facility]ARC[facility] MARIA PARHAM HE[place]RadhaW[place], [place] [address]HX: NOT GIVENUNK [facility] 02/03/2025 DIONNA [address] [place] [address] Primary Insurance:BUCKEYE AMBETTERPolicy Number: [id number] Date:8967-34-12[address] [place] [address]RB: DIONNA GALANUSHB: [id number] [place] [address]Vni: () [facility] 02/03/2025 Secondary Insurance:SELF PAYPolicy Number: Effective Date:100 [place], [place] [address]BQ: NOT GIVENUNK [facility]
--- OUTSIDE RECORDS SUMMARY | 2025-05-12 14:55 | XMS RPT_ITS ---
Author Name Auto Generated Organization OHIP Care Team Providers Care Web Administrator Name Role Phone Tay Camara Primary Care [...] DATE TYPE CONDITION / CODE ATTENDING STATUS [facility] 05/12/2025 Final diagnosis (discharge) Sepsis, unspecified organism / UNK(Unknown) Rose Sanchez Active [facility] PROCEDURES No Procedure Records Found RESULTS PROGRESS NOTE - ANTIBIOTICS Observed: 7:05 PM Status: F Source: [facility] Medical Records Patient: BHAVINDannyJuan JoséVIANEYDIONNA Delgado [address] : 1975 [place], [place] [address] Location: [phone] Unit #: [id number] Progress Note - Antibiotics Marc Serna (ID) [...] Entered by: Marc Serna (ID)MD on 05/17/25 0861 Report Signed by: Marc Serna MD (ID) on 07/08/25 1908 <<Signature on File>> <Electronically signed by Marc Serna (ID) > Report Signed by: on PROGRESS NOTE - ANTIBIOTICS Observed: 7:05 PM Status: F Source: [facility] Medical Records Patient: DIONNA CONCEPCION [address] : 1975 [place], [place] [address] Location: [facility] [phone] Unit #: [id number] Progress Note - Antibiotics Marc Serna (ID) [...] Observed: 07/08/2025 7:05 PM Status: F Source: [facility] Medical Records Patient: DIONNA CONCEPCION [address] : 1975 [place], [place] [address] Location: [phone] Unit #: [id number] Consultation Marc Serna MD (ID) Service Date: [...] 49-year-old male, has been admitted via the [facility] Emergency Department with a history of alcohol [...] procalcitonin elevations. *Sindi et al., Lancet 2010;375: DOI:10.1016/Z1743-0456 [id number])[id number] *Ebony P et al., Arch Nitric Acid Concentrator Operator Med 2011;171:4182-1794 Comprehensive Metabolic Panel Sodium 139 135-145 mEq/L [...] eGFR equation used can be found at [email or web address].[email or web address]-[email or web address]. AST/SGOT 41 15-41 IU/L Alk Phos 68 [...] % (Auto) 18.6 % (15-45) 05/11/25 15:14 Crook % (Auto) 10.3 % (2-10) H 05/11/25 15:14 Eos % (Auto) 0.8 % (0-6) 05/11/25 15:14 Baso % (Auto) 0.8 % (0-2) 05/11/25 15:14 Nucleat RBC Rel Count 0.2 /100 WBC (<1) 05/11/25 15:14 Absolute Neuts (auto) 9300 /cmm (6241-4922) H 05/11/25 15:14 Absolute Lymphs (auto) 2500 /cmm (7411-9832) 05/11/25 15:14 Absolute Monos (auto) 1400 /cmm (0-800) H 05/11/25 15:14 Absolute Eos (auto) 100 /cmm (0-500) 05/11/25 15:14 Absolute Basos (auto) 100 /cmm (0-200) 05/11/25 15:14 Neutrophils % (Manual) 94.0 % (40-70) H 05/13/25 04:55 Band Neutrophils % 2.0 % (2-6) 05/13/25 04:55 Lymphocytes % (Manual) 4.0 % (15-45) L 05/13/25 04:55 Abs Neuts (Manual) 64282 /cmm (2538-7931) H 05/13/25 04:55 Abs Lymphs (Manual) 1548 /cmm (1916-4468) 05/13/25 04:55 Abs Monocytes (Manual) 0 /cmm [...] pH 7.0 (5.0-8.0) 05/13/25 09:16 Ur Specific [place] 1.021 (1.000-1.035) 05/13/25 09:16 Urine Protein 20 mg/dl (Negative) 05/13/25 09:16 Urine Glucose (UA) 30 mg/dL (Negative) 05/13/25 09:16 Urine Ketones Negative (Negative) 05/13/25 09:16 Urine Blood >1.0 mg/dl (Negative) 05/13/25 09:16 Urine Nitrite Negative (Negative) 05/13/25 09:16 Urine Bilirubin 2 mg/dL (Negative) 05/13/25 09:16 Urine Urobilinogen >10.0 mg/dl (0.2-1.0) 05/13/25 09:16 Ur Leukocyte Esterase 75 Apti/uL (Negative) 05/13/25 09:16 U Hyaline Cast (Auto) [...] ANTIBIOTICS Observed: 7:05 PM Status: F Source: [facility] Records Patient: DIONNA CONCEPCION [address] : 1975 [place], [place] [address] Location: [phone] Unit #: [id number] Progress Note - Antibiotics Marc VELEZ) Service [...] ANTIBIOTICS Observed: 7:05 PM Status: F Source: [facility] Records Patient: DIONNA CONCEPCION [address] : 1975 [place], [place] [address] Location: [phone] Unit #: [id number] Progress Note - Antibiotics Marc Serna (ID) [...] Entered by: Marc Serna (ID)MD on 05/15/25 9885 Report Signed by: Marc Serna MD (ID) on 07/08/25 2048 <<Signature on File>> <Electronically signed by Marc Serna (POONAM) > Report Signed by: on PROGRESS NOTE - ANTIBIOTICS Observed: 7:05 PM Status: F Source: [facility] Records Patient: DIONNA CONCEPCION [address] : 1975 [place], [place] [address] Location: [facility] [phone] Unit #: [id number] [id number] Progress Note - Antibiotics Marc Serna (ID) [...] Observed: 025 8:23 PM Status: F Source: [facility] Records Patient: DIONNA [address]CEPC[address] : 1975 [place], [place] [address] Location: [facility] [phone] Unit #: [id number] Progress Note Surgical Russell Gallego ([facility]) BHAVNA-C Service Dt/Tm: 05/17/25 0652 <Statement entered [...] (ml) Other: Weight Measurement Method Built in [facility] General Appearance: Positive Alert; Negative Acute Distress [...] Results: 05/17/25 04:35 Images available, please contact [facility] Medical Records 05/17/25 04:35 Images available, please contact [facility] Medical Records Laboratory Results - last 24 [...] (DEIDRA) - Final Entered by: Russell Gallego ([facility])SILVIA on 05/17/25 0652 Report Signed by: Russell Can ([facility]) Julián VEGA on 05/17/252050 <<Signature on File>> <Electronically signed by Russell Gallego ([facility]) SLIVIA> Report Signed by: Ember Khanna MD on 07/01/252021 <<Signature on File>> <Electronically signed by Ember Khanna MD> HISTORY AND PHYSICAL Observed: 11:08 PM Status: F Source: [facility] Records Patient: DIONNA CONCEPCION [address] : 1975 [place], [place] [address] Location: [address] [place] [address] Unit #: [id number] History and Physical Stuart Madrid MD ADDENDUM: Surgical History (Updated 06/05/25 @ 00:02 by Raquel Sultana) S/P rotator cuff repair Addendum Entered by: Stuart Madrid on 06/26/25 at 2308 Addendum Signed by: Stuart Madrid MD on 06/26/252307 <<Signature on File>> <Electronically signed by Stuart Madrid MD> Addendum Signed by: on Date of Entry Into Hospital: 05/11/25 Date of Service: 05/11/25 Time Seen: 18:29 Patient Information: Primary Care Provider: Tay Camara MD Chief Complaint: RT MCA INFARCT/LT SIDED WEAKNESS History Obtained From: Patient History of Present Illness: 57-year-old male with past history of CVA He presented to the emergency room of [facility] with chief complaints of excessive fatigue and [...] % (Auto) 18.6 % (15-45) 05/11/25 15:14 Crook % (Auto) 10.3 % (2-10) H 05/11/25 15:14 Eos % (Auto) 0.8 % (0-6) 05/11/25 15:14 Baso % (Auto) 0.8 % (0-2) 05/11/25 15:14 Nucleat RBC Rel Count 0.2 /100 WBC (<1) 05/11/25 15:14 Absolute Neuts (auto) 9300 /cmm (0049-7733) H 05/11/25 15:14 Absolute Lymphs (auto) 2500 /cmm (6436-9849) 05/11/25 15:14 Absolute Monos (auto) 1400 /cmm [...] Observed: 01/2025 4:50 PM Status: F Source: [facility] Patient: JAMEYDIONNA Delgado [address] : 1975 [place], [place] [address] Location: [phone] Unit #: [id number] [facility] [id number] ER Physician Documentation Service Date:05/11/25 ER Provider: [...] History History of right MCA stroke Fatigue Kiln Feeder domenic pancreatitis Alcoholism Metabolic encephalopathy Acute respiratory [...] motor de ficits and No sensory deficits [place] Coma Scale: Best eye response: Spontaneously Best verbal response: [place] ed Best motor response: Obeys commands [place] Coma Score: 15 Course Orders/Results Orders: Orders [...] % (Auto) 69.5, Lymph % (Auto) 18.6, Crook % (Auto) 10.3 H, Eos % (Auto) [...] Attending Note (ALIVIA 1,2,3): Suzette Cooley, medical apparatus model maker, documented on behalf of Dr. Raul Holt [...] and care provided. I, Suzette Angulo, medical apparatus model maker, documented the EKG results and Shared Attending [...] Observed: 06/03/2025 5:13 PM Status: F Source: [facility] Records Patient: DIONNA CONCEPCION Danny [address] : 1975 [place], [place] [address] Location: [phone] Unit #: [id number] Status Note/Update Russell Gallego ([facility]) SILVIA Service Dt/Tm: 05/15/2524 Note: DIONNA CONCEPCION is a 49 yr old M who was admitted on 05/12/25 for RT MCA INFARCT/LT SIDED WEAKNESS. General surgery recommending MRCP/ERCP first for patient Continue with NG tube Gastrografin challenge tomorrow after ERCP is taken place Dr. Acosta discussed plan with critical care team Will continue to follow Entered by: Russell Gallego ([facility])SILVIA on 05/15/2524 Report Signed by: Russell Can ([facility]) Julián VEGA on 05/15/2526 <<Signature on File>> <Electronically signed by Russell FonsecaROGER MILLS [facility]) SILVIA> Report Signed by: Emeka Acosta MD on 06/03/25 1713 <<Signature on File>> <Electronically signed by Emeka Acosta MD> PROGRESS NOTE - HOSPITALIST Observed: 4:26 PM Status: F Source: [facility] Patient: DIONNA CONCEPCION [address] : 1975 [place], [place] [address] Location: [phone] Unit #: [id number] Progress Note - Hospitalist Rose Sanchez MD [...] abuse and previous CVA, was admitted to [facility] with complaints of excessive fatigue and generalized [...] Status Ordered 05/11/25 at 1830 05/17/25 10:31 [facility] Diet Texture: Regular Fluid Restrictions?: No Subjective [...] Observed: 06/03/2025 4:26 PM Status: F Source: [facility] Patient: DIONNA CONCEPCION [address] : 1975 [place], [place] [address] Location: [phone] Unit #: [id number] Discharge Summary Rose Sanchez MD Patient Information [...] abuse and previous CVA, was admitted to [facility] with complaints of excessive fatigue and generalized [...] was discharged in stable condition to a senior care facility with outpatient urology and psychiatric follow-up [...] Discharge Plan Discharge Data Patient Disposition: *Discharge/Transfer SNF/[facility] Condition: Fair Discharge Medication Reconciliation: New atorvastatin [...] 0 06/03/2025 4:13 PM Status: F Source: [facility] Patient: DIONNA CONCEPCION [address] : 1975 [place], [place] [address] Location: [phone] Unit #: [id number] [facility] [id number] Continuity Care/Face to Face Yeimy Metcalf RN Service Date: 06/03/25 Continuity Care/Face to Face Face to Face Encounter Date: 06/03/25 - General Information Admit to: [facility] Phone Number: [phone] Therapist Phys/Claims Agent Right Of Way: Yeimy Metcalf Primary Insurance: Pavan Huynh Secondary Insurance: PAUL pending Family/Caregiver Contact: Dionna Loving Relationship: father Living Will: Unknown [facility] DNR Comfort Care: No Directive, No SS Referral [facility] DNR Comfort Care Arrest: No Directive, [...] (Verified 05/11/25 15:01) - Orders Disciplines Requested: Penitentiary, Physical Therapy, Occupational Therapy Services Requested: Skilled [...] NOTE Observed: 4:07 PM Status: F Source: [facility] Case Management Patient: DIONNA CONCEPCION [address] : 1975 [place], [place] [address] Location: [phone] Unit #: [id number] Case Management Daily Note Yeimy Metcalf RN Service Date: 06/03/25 Case Mgmt Daily Note - Plan of Care Claims Agent Right Of Way Agrees with Attending and Consult Plan: Yes - Patient Preferences AND Goals What is the patient's preference?: New SNF Recommended acute discharge goals: New SNF - Hospital Stay Days Day 1 Comment: 05/11 - Spoke with patient at bedside. Patient has Pavan Fierror. PCP is Pam Camara. appraiser personal property is his father, Dionna. [facility]. Denies services, DME. He is independent [...] states he has been falling at home. Claims Agent Right Of Way: Ana Snyder, RN Day 2 Comment: 05/12 - Spoke with pt. MRI completed and pending results. Neuro following. PT/OT ordered and recommended IPR. Rehab consulted to review case and waiting on response. Claims Agent Right Of Way: Shelbi Jackson Day 3 Comment: 05/13 Dispo pending medical course. IPR following, c/s placed 05/12. MRI B (-) for acute CVA. WBC 42.9. Lactic 3.7. BC/UA/Sputum Cx. IV Rocephin/IVF. PT/OT. Claims Agent Right Of Way: Jimena Carcamo RN Day 4 Comment: 05/14: Patient transferred to ICU overnight. Intubated. PEEP 5. FiO2 40%. Propofol. Versed. Levo. Vaso. IVP Solu Cortef QID. Seizure precautions. WBC 36.5. 7/8 blood cultures pending. IV unasyn Q6. ID following. MRCP today. Surgery following. SW d/t alcohol abuse. Needs TBD pending medical medical course. Claims Agent Right Of Way: Sonja Mcmahan Day 5 Comment: 05/15: Patient remains intubated. PEEP 5. FiO2 30%. Versed. Levo. IVP Solu Cortef QID. IV ampicillin Q6. WBC 25.3. 7/9 sputum positive. 05/13 blood cultures negative to date. GI following, ERCP today. Surgery following. ID following. SW following d/t alcohol abuse. Needs TBD pending medical course. Claims Agent Right Of Way: Sonja Mcmahan Day 6 Comment: 05/16: Patient remains intubated. PEEP 5. FiO2 30%. IVP Solu Cortef QID. LR @ 50. ID following. WBC 9.5. IV ampicillin Q6. Hgb 8.8. Needs TBD pending medical course and therapy recs post extubation. Claims Agent Right Of Way: Sonja Mcmahan Day 9 Comment: 05/19 Most recent CIWA 5. Daughter wanting SNF placement per previous CM. PTOT most recent recs IPR. Per nursing documentation, pt not alert and oriented. CM and BATCH AND FURNACE OPERATOR will speak with daugther further about DC [...] daughter with SNF choices, [facility] in [place], [place]. [facility]- [place], [place]. [facility]- in [place], [place]. *[employer] attempting to get information from daughter/pt brother for manager sql PAUL screening. Claims Agent Right Of Way: Yeimy Metcalf, RN Comment: 05/20 Email this AM from daughter states she is interested in SNF facilities closer to a middle point for her/siser and pt dad/brother so they can all visit pt. Daughter is requesting a family meeting for this wednesday 05/23 at 11am to discuss placement options. Pt will require precert once a facility is obtained. Claims Agent Right Of Way: Yeimy Metcalf, RN Comment: 05/21 Psych consult placed per attending. EEG ordered per neurology, possible LP per neurology notes. ID following, Unasyn active until 05/26. Telesitter present in room. Pt remains confused. [employer] attempting skilled nursing PAUL krunal with family. SNF choices given by daughter to CM and BATCH AND FURNACE OPERATOR in [place] and [place]. BATCH AND FURNACE OPERATOR working on placement. Awaiting psych consult to review further placement barriers. Claims Agent Right Of Way: Yeimy Metcalf, RN Comment: 05/22 SW is working with patients daughter for placement note reads dc planning with pt daughter through email. Pt daughter planning to be at [facility] tomorrow for family meeting. Pt daughter would like to continue looking for SNF at [facility]. Pt evaluated by telepsych and recs for outpt services. SW faxed clinical referral to [facility] in [place] for review. Claims Agent Right Of Way: Beverly Mckeon, RN Comment: 05/23 Family meeting at the bedside with attending, Palliative Care DIRECTOR RECREATION, CM and BATCH AND FURNACE OPERATOR. Medical questions answered per attending. CM and BATCH AND FURNACE OPERATOR spoke about DC planning/placement options/barriers. BATCH AND FURNACE OPERATOR sending clinicals to [facility] and [place] area to check on placement avalibility. Per Keon, PAUL screen complete and pending number provided to BATCH AND FURNACE OPERATOR. CM and BATCH AND FURNACE OPERATOR attempting agents' records clerk placement. Family requesting to speak with progressive care unit registered nurse/administration about concerns with pt care/complaints. CM spoke with [employer] x2 to relay information. Email sent to progressive care unit registered nurse as she is off to follow up with concerns once back in office. Claims Agent Right Of Way: Yeimy Metcalf, RN Comment: 05/26 Telesitter removed by primary RN over the weekend. Telesitter remains out of the room at this time. Per BATCH AND FURNACE OPERATOR, still sending referrals and waiting on accepting facility. Pt also PAUL pending for skilled nursing placement. Claims Agent Right Of Way: Yeimy Metcalf, RN Comment: 05/27 Per BATCH AND FURNACE OPERATOR, facilities requested by daughter in [place] are continuing to review. Precert to start once accepted. Claims Agent Right Of Way: Yeimy Metcalf, RN Comment: 05/28 Per BATCH AND FURNACE OPERATOR, facilities still reviewing pt. Per BATCH AND FURNACE OPERATOR, [facility] agreeable to take pt but daughter stating that facility is too far away. Precert to start once a facility accepts. Claims Agent Right Of Way: Yeimy Metcalf, RN Comment: 05/29/25 Pre-cert pending to [facility] in [place]. Claims Agent Right Of Way: Beverly Mckeon, RN Comment: 05/30 Precert remains PENDING for [facility]. Multiple facilites have been exhausted by BATCH AND FURNACE OPERATOR and all facilities picked by daughter have no availability, don't accept PAUL pending, or will not accept due to pt behaviors/history. Daughter previously agreeable to a middle point for pt between [place] and [place] so other family members could visit patient. Pt has been medically cleared for DC and DC planning needing to move forward with [facility] per CM Director Shireen. Daughter updated via email(daughters preferred contact method) that DC planning needing to move forward and we are moving forward with the facility that has accepted him and has a agents' records clerk bed available. Daughter updated via email that she can move pt to a closer facility from [facility] if she desires. Claims Agent Right Of Way: Yeimy Metcalf, RN Comment: 06/02 Per BATCH AND FURNACE OPERATOR, Precert remains PENDING for [facility]. *Per BATCH AND FURNACE OPERATOR, [facility] states insurance likely to deny due to refusal to work with therapy. Per BATCH AND FURNACE OPERATOR, facility hesitant to accept pt PAUL pending. *CM called : [facility], F:[phone], they can accept PAUL pending and do have bed availability, BATCH AND FURNACE OPERATOR updated to send recs for review. [facility], F:[phone], BATCH AND FURNACE OPERATOR updated to send recs for review. [facility], F:[phone], they do accept PAUL pending and are checking on skilled nursing bed availability, BATCH AND FURNACE OPERATOR updated to send recs for review. CM also called: [facility], [facility], [place], [facility], [facility], [facility], [facility] and left voicemails to check for availability. Awaiting return calls. *Per BATCH AND FURNACE OPERATOR, [facility] has clinically accepted and financial team is now reviewing pt. Claims Agent Right Of Way: Yeimy Metcalf, RN Comment: 06/03 Per BATCH AND FURNACE OPERATOR, multiple facilities are reviewing at this time. Onsite planned for today. See BATCH AND FURNACE OPERATOR notes for updates on SNF placement. Claims Agent Right Of Way: Yeimy Metcalf, RN - Respiratory Equipment Does [...] NOTE Observed: 4:07 PM Status: F Source: [facility] Case Management Patient: DIONNA CONCEPCION [address] : 1975 [place], [place] [address] Location: [phone] Unit #: [id number] [facility] #: [id number] Case Management Daily Note Yeimy Metcalf RN Service Date: 06/02/25 Case Mgmt Daily Note - Plan of Care Claims Agent Right Of Way Agrees with Attending and Consult Plan: Yes - Patient Preferences AND Goals What is the patient's preference?: New SNF Recommended acute discharge goals: New SNF - Hospital Stay Days Day 1 Comment: 05/11 - Spoke with patient at bedside. Patient has Pavan Huynh. PCP is Pam Camara. appraiser personal property is his father, Dionna. [facility]acy [facility]. Denies services, DME. He is independent [...] states he has been falling at home. Claims Agent Right Of Way: Ana Snyder, RN Day 2 Comment: 05/12 - Spoke with pt. MRI completed and pending results. Neuro following. PT/OT ordered and recommended IPR. Rehab consulted to review case and waiting on response. Claims Agent Right Of Way: Shelbi Jackson Day 3 Comment: 05/13 Dispo pending medical course. IPR following, c/s placed 05/12. MRI B (-) for acute CVA. WBC 42.9. Lactic 3.7. BC/UA/Sputum Cx. IV Rocephin/IVF. PT/OT. Claims Agent Right Of Way: Jimena Carcamo, RN Day 4 Comment: 05/14: Patient transferred to ICU overnight. Intubated. PEEP 5. FiO2 40%. Propofol. Versed. Levo. Vaso. IVP Solu Cortef QID. Seizure precautions. WBC 36.5. 05/13 blood cultures pending. IV unasyn Q6. ID following. MRCP today. Surgery following. SW d/t alcohol abuse. Needs TBD pending medical medical course. Claims Agent Right Of Way: Sonja Mcmahan Day 5 Comment: 05/15: Patient remains intubated. PEEP 5. FiO2 30%. Versed. Levo. IVP Solu Cortef QID. IV ampicillin Q6. WBC 25.3. 05/14 sputum positive. 05/13 blood cultures negative to date. GI following, ERCP today. Surgery following. ID following. SW following d/t alcohol abuse. Needs TBD pending medical course. Claims Agent Right Of Way: Sonja Mcmahan Day 6 Comment: 05/16: Patient remains intubated. PEEP 5. FiO2 30%. IVP Solu Cortef QID. LR @ 50. ID following. WBC 9.5. IV ampicillin Q6. Hgb 8.8. Needs TBD pending medical course and therapy recs post extubation. Claims Agent Right Of Way: Sonja Mcmahan Day 9 Comment: 05/19 Most recent CIWA 5. Daughter wanting SNF placement per previous CM. PTOT most recent recs IPR. Per nursing documentation, pt not alert and oriented. CM and BATCH AND FURNACE OPERATOR will speak with daugther further about DC [...] daughter with SNF choices, [facility] in [place], [place]. [facility]- [place], [place]. [facility]- in [place], [place]. *[employer] attempting to get information from daughter/pt brother for senior living PAUL screening. Claims Agent Right Of Way: Yeimy Metcalf, RN Day Comment: 05/20 Email this AM from daughter states she is interested in SNF facilities closer to a middle point for her/siser and pt dad/brother so they can all visit pt. Daughter is requesting a family meeting for this wednesday 05/23 at 11am to discuss placement options. Pt will require precert once a facility is obtained. Claims Agent Right Of Way: Yeimy Metcalf, RN Day 11 Comment: 05/21 Psych consult placed per attending. EEG ordered per neurology, possible LP per neurology notes. ID following, Unasyn active until 05/26. Telesitter present in room. Pt remains confused. [employer] attempting agents' records clerk PAUL krunal with family. SNF choices given by daughter to CM and BATCH AND FURNACE OPERATOR in [place] and [place]. BATCH AND FURNACE OPERATOR working on placement. Awaiting psych consult to review further placement barriers. Claims Agent Right Of Way: Yeimy Metcalf, RN 12 Comment: 05/22 SW is working with patients daughter for placement note reads dc planning with pt daughter through email. Pt daughter planning to be at [facility] tomorrow for family meeting. Pt daughter would like to continue looking for SNF at [facility]. Pt evaluated by telepsych and recs for outpt services. SW faxed clinical referral to [facility] in [place] for review. Claims Agent Right Of Way: Beverly Mckeon, RN Comment: 05/23 Family meeting at the bedside with attending, Palliative Care DIRECTOR RECREATION, CM and BATCH AND FURNACE OPERATOR. Medical questions answered per attending. CM and BATCH AND FURNACE OPERATOR spoke about DC planning/placement options/barriers. BATCH AND FURNACE OPERATOR sending clinicals to [facility] and [place] area to check on placement avalibility. Per Keon, PAUL screen complete and pending number provided to BATCH AND FURNACE OPERATOR. CM and BATCH AND FURNACE OPERATOR attempting agents' records clerk placement. Family requesting to speak with progressive care unit registered nurse/administration about concerns with pt care/complaints. CM spoke with [employer] x2 to relay information. Email sent to progressive care unit registered nurse as she is off to follow up with concerns once back in office. Claims Agent Right Of Way: Yeimy Metcalf, RN Comment: 05/26 Telesitter removed by primary RN over the weekend. Telesitter remains out of the room at this time. Per BATCH AND FURNACE OPERATOR, still sending referrals and waiting on accepting facility. Pt also PAUL pending for agents' records clerk placement. Claims Agent Right Of Way: Yeimy Metcalf, RN Comment: 05/27 Per BATCH AND FURNACE OPERATOR, facilities requested by daughter in [place] are continuing to review. Precert to start once accepted. Claims Agent Right Of Way: Yeimy Metcalf, RN Comment: 05/28 Per BATCH AND FURNACE OPERATOR, facilities still reviewing pt. Per BATCH AND FURNACE OPERATOR, [place] [facility] agreeable to take pt but daughter stating that facility is too far away. Precert to start once a facility accepts. Claims Agent Right Of Way: Yeimy Metcalf, RN Comment: 05/29/25 Pre-cert pending to [facility] in [place]. Claims Agent Right Of Way: Beverly Mckeon, RN Comment: 05/30 Precert remains PENDING for [facility]. Multiple facilites have been exhausted by BATCH AND FURNACE OPERATOR and all facilities picked by daughter have no availability, don't accept PAUL pending, or will not accept due to pt behaviors/history. Daughter previously agreeable to a middle point for pt between [place] and [place] so other family members could visit patient. Pt has been medically cleared for DC and DC planning needing to move forward with [facility] per CM Director Shireen. Daughter updated via email(daughters preferred contact method) that DC planning needing to move forward and we are moving forward with the facility that has accepted him and has a agents' records clerk bed available. Daughter updated via email that she can move pt to a closer facility from [facility] if she desires. Claims Agent Right Of Way: Yeimy Metcalf, RN Comment: 06/02 Per BATCH AND FURNACE OPERATOR, Precert remains PENDING for [facility]. *Per BATCH AND FURNACE OPERATOR, [facility] states insurance likely to deny due to refusal to work with therapy. Per BATCH AND FURNACE OPERATOR, facility hesitant to accept pt PAUL pending. *CM called : [facility], [phone], they can accept PAUL pending and do have bed availability, BATCH AND FURNACE OPERATOR updated to send recs for review. [facility], F:[phone], BATCH AND FURNACE OPERATOR updated to send recs for review. [facility], F:[phone], they do accept PAUL pending and are checking on skilled nursing bed availability, BATCH AND FURNACE OPERATOR updated to send recs for review. CM also called: Maria Fernanda Jay, [facility], [place], [facility], [facility], [facility] and [facility] to check for availability. Awaiting return calls. *Per BATCH AND FURNACE OPERATOR, [facility] has clinically accepted and financial team is now reviewing pt. Claims Agent Right Of Way: Yeimy Metcalf, RN - Respiratory Equipment Does [...] Observed: 025 1:30 PM Status: F Source: [facility] Agency Cashier Patient: DIONNA CONCEPCION [address] : 1975 [place], [place] [address] Location: [address] [place] [address] Unit #: [id number] Social Work Daily Note Marky Olivo Service Date: 06/03/25 Daily Note - * Psychosocial Assessment * I have reviewed nursing and case management psychosocial information.: Yes - * Hospital Stay Days * Day 1 Note: 05/14/2025: c/s for Substance Abuse Screening. Pavan TRIPLETT. +tox for cannabinoids on admission. Hx of alcohol abuse. Enecphalopathy. Pt intubated overnight. Agency Cashier to follow peripherally to discuss with pt when medically appropriate. Therapist Phys: Yeimy Shah, INTERNET SALES DIRECTOR, PSYCH SOCIAL WORKER Day 2 Note: 05/15/2025: SW following for Substance Abuse Screening. Caldwell AmbetterZach CIWA. +tox for cannabinoids on admission. Hx of alcohol abuse- Wernickes Enecphalopathy. Pt remains intubated this date. SW updated by nursing staff that the pt's family is requesting pt d/c to a SNF in the [place], [place] area when medically ready for d/c. KAYLENE called and discussed this with pt's daughter, Maria Fernanda. Maria Fernanda reports most of the family lives between [place] and [place], so [place] would be a good middle location. KAYLENE [...] it will be a short term or skilled nursing placement. Maria Fernanda reports she has not talked with her father in 3 years. Maria Fernanda is unaware of pt's finances and does not know of any POA paperwork that the pt has ever completed. Maria Fernanda stated that the pt is not legally to anyone. Maria Fernanda reports the pt has three living children: Maria Fernanda Glynn PH: [phone], Beverly Jamey PH: [phone] AND Dionna Jamey PH: [phone]. Maria Fernanda reports Dionna will likely not want to participate in any decision making for the pt. KAYLENE explained that in [place] if there is no POA/Guardian and if pt is not legally , that any decisions will need to be a consensus between all living children. Maria Fernanda voiced understanding. Maria Fernanda would like to review a list of SNFs in [place], [place] to begin reviewing. Maria Fernanda reports her address is [address] [place] [address]. A list of SNFs within 30 miles of Maria Fernanda's address with quality scores emailed to Maria Fernanda at [email or web address]. KAYLENE requested Maria Fernanda to provide a list of 5-10 choices as pt may be a difficult placement d/t history of alcohol abuse and insurance. D/c planning needs pending medical course. SW to continue following. Therapist Phys: Yeimy Shah MSW, KARLA Day 3 Note: 05/16/2025: SW following for Substance Abuse Screening. Pavan TRIPLETT. +tox for cannabinoids on admission. Hx of alcohol abuse- Wernickes Enecphalopathy. Pt remains intubated this date. D/c planning needs pending medical course. SW to continue following. Therapist Phys: Yeimy Shah MSW, KARLA Day 6 Note: 05-19-25 KAYLENE following for SNF/dc planning. JIMBO Crooks emailed pt daughter list of SNF options in [place]. DENISSE Crooks sent referral to [facility] for pt to be screened for PAUL benefit. Pt daughter gave choices of SNFs. Kaylene spoke with admissions of [facility] in [place] and faxed clinical referral to facility. Therapist Phys: Marky Olivo 7 Note: 05-21-25 KAYLENE following for dc planning. DC plan curently pending. SNF referral sent to [facility] in [place] pt first choice and facility unable to accept. Pt daughter possibly wanting SNF in between [place] and [place]. Psych consult ordered. SW will continue to follow. Therapist Phys: Marky Olivo 8 Note: 05-22-25 KAYLENE communicated dc planning with pt daughter through email. Pt daughter planning to be at [facility] tomorrow for family meeting. Pt daughter would like to continue looking fo rSNF at dc. Pt evaluated by telepsych and recs for outpt services. KAYLENE faxed clinical referral to [facility] in [place] for review. Therapist Phys: Marky Olivo 9 Note: 05-23-25 KAYLENE and JIMBO spoke with pt and family at bedside along with pt medical provider. KAYLENE and JIMBO discussed LT care options at [facility]. Pt family continues to be agreeable to SNF. [place] [facility] [place]. No preferenc eof facility just something [place]. KAYLENE sent referral to [facility] in [place] waiting on facility to review. Clinical referral also faxed to [facility] in [place] for review. Per [facility] PAUL application was completed and submitted on 05-22. Therapist Phys: Marky Olivo day 12 Note: 05-26-25 KAYLENE following for SNF placement. KAYLENE sent referrals to [facility] and [facility] in [place]. Per admissions at both facilities they have minimal LT beds available and will review pt referral. KAYLENE emailed pt daughter to update her of dc planning. SW continuing to follow. Therapist Phys: Marky Olivo 13 Note: 05-28-25 KAYLENE continuing to follow for SNF placement. Referrals being reviewed by [facility] and [facility]. Kaylene spoke with admissions at both facilities. Pt referrals denied by both facilities. [facility] in [facility] still able to accept. SW left voicemail for admissions at [facility]. KAYLENE sent an email to pt daughter Maria Fernanda to update her on dc plan and current status with facilities. Therapist Phys: Marky Olivo 14 Note: 05-29-25 Pt precert pending to admit at [facility]. Per admissions at facility he will need to follwo up with corporate to see if pt is able to admit PAUL pending. Therapist Phys: Marky Olivo Note: 05-30-25 Pt precert is currently pending at [facility] in [place]. KAYLENE emailed pt daughter Maria Fernanda to update her of dc plan and pending status. Therapist Phys: Marky Olivo Note: 06-02-25 KAYLENE following for SNF placement/dc planning. Sw left voicemail for [facility] admisisons at [facility] at 0900. Kaylene spoke with [facility] at 1215. Per [facility] pt precert auth has not been processed not officially denied. Kaylene faxed PT/OT re-evals to submit to try for approval. Facilit yis unable to accept pt LT under PAUL peniding status. KAYLENE and JIMBO called facilities in [place] trying to find facilities to send referrals to who can accept pt PAUL pending. Referrals sent to [facility], [place] [facility], [facility], [place] and [facility]. KAYLENE spoke with admissions from [facility] pt clinically accepted by facility will need to get corporate business/financials to approve pt admitting under PAUL pending. KAYLENE waiting for facility approval. KAYLENE spoke with pt daughter Maria Fernanda via phone to update her of situation. Therapist Phys: Marky Olivo Note: 06-03-25 KAYLENE spoke with Berenice admissions at [facility] in [place]. Per Berenice pt clinically accepted and she has approval for pt to admit under his PAUL pending status. KAYLENE spoke with pt daughter to update her of acceptance. KAYLENE scheduled transportation for 1315. CM and pt floor nurse updated. DC orders faxed to facility. DC packet placed on charts. Pt daughter updated of transport time. Therapist Phys: Marky Olivo W - * Requested Intvs/Referrals * Therapist Phys I Referrals: Substance Abuse Screening - Community Services/Interventions Substance Use Screening: Initiated - * HEALTHCARE DECISIONS * Living Will: Unknown Durable Power of Exchange Engineer for Health Care: No Directive, No SS Referral [facility] DNR Comfort Care: No Directive, No SS Referral [facility] DNR Comfort Care Arrest: No Directive, No SS Referral Entered by: Marky Olivo on 06/03/25 1217 Report Signed by: Marky Olivo on 06/03/25 1330 <<Signature on File>> <Electronically signed by Marky Olivo> Report Signed by: on POTASSIUM Collected: 5:12 AM Status: F Source: [facility] TYPE CODE TESTS RESULT OUT OF RANGE REFERENCE UNITS LAB L400.1500 Potassium 4.1 Normal 3.6-5.0 mEq/L Performed By: #### L400.1500 #### Main Laboratory ([facility]) [address] [place] [address] Regan Sahni MD PROGRESS NOTE Observed: 06/02/2025 10:53 PM Status: F Source: [facility] Medical Records Patient: DIONNA CONCEPCION [address] : 1975 [place], [place] [address] Location: [phone] Unit #: [id number] Progress Note Johnna Massey APRN, TRUCKING CONTRACTOR Service Dt/Tm: 06/02/25 1500 Assessment and Plan [...] % (Auto) 15.3 % (15-45) 05/22/25 05:28 Crook % (Auto) 11.7 % (2-10) H 05/22/25 05:28 Eos % (Auto) 1.6 % (0-6) 05/22/25 05:28 Baso % (Auto) 0.7 % (0-2) 05/22/25 05:28 Nucleat RBC Rel Count 0.0 /100 WBC (<1) 05/22/25 05:28 Absolute Neuts (auto) 9700 /cmm (5049-9342) H 05/22/25 05:28 Absolute Lymphs (auto) 2100 /cmm (8000-4791) 05/22/25 05:28 Absolute Monos (auto) 1600 /cmm [...] 1.0 % 05/14/25 02:40 Abs Neuts (Manual) 59982 /cmm (9656-8722) H 05/14/25 02:40 Abs Lymphs (Manual) 364 /cmm (7433-5839) L 05/14/25 02:40 Abs Monocytes (Manual) 1092 [...] pH 7.0 (5.0-8.0) 05/13/25 09:16 Ur Specific [place] 1.021 (1.000-1.035) 05/13/25 09:16 Urine Protein 20 [...] on 06/02/25 1648 <<Signature on File>> < 6402 <<Signature on File>> <Electronically signed by Naldo Paez MD> SOCIAL WORK DAILY NOTE Observed: 07/28/2 025 3:41 PM Status: F Source: [facility] Agency Cashier Patient: JAMEYDIONNA Danny [address] : 1975 [place], [place] [address] Location: [phone] Unit #: [id number] Social Work Daily Note Marky W Geovani Service Date: 06/02/25 SW Daily Note - * Psychosocial Assessment * I have reviewed nursing and case management psychosocial information.: Yes - * Hospital Stay Days * Day 1 Note: 05/14/2025: SW c/s for Substance Abuse Screening. Caldwell Ambetter. CIWA. +tox for cannabinoids on admission. Hx of alcohol abuse. Enecphalopathy. Pt intubated overnight. Agency Cashier to follow peripherally to discuss with pt when medically appropriate. Therapist Phys: Yeimy Shah, INTERNET SALES DIRECTOR, PSYCH SOCIAL WORKER Day 2 Note: 05/15/2025: SW following for Substance Abuse Screening. Caldwell Ambetter. CIWA. +tox for cannabinoids on admission. Hx of alcohol abuse- Wernickes Enecphalopathy. Pt remains intubated this date. KAYLENE updated by nursing staff that the pt's family is requesting pt d/c to a SNF in the [place], [place] area when medically ready for d/c. KAYLENE called and discussed this with pt's daughter, Maria Fernanda. Maria Fernanda reports most of the family lives between [place] and [place], so [place] would be a good middle location. KAYLENE [...] it will be a short term or skilled nursing placement. Maria Fernanda reports she has not talked with her father in 3 years. Maria Fernanda is unaware of pt's finances and does not know of any POA paperwork that the pt has ever completed. Maria Fernanda stated that the pt is not legally to anyone. Maria Fernanda reports the pt has three living children: Maria Fernanda Glynn PH: [phone], Beverly Concepcion PH: [phone] AND Dionna Concepcion PH: [phone]. Maria Fernanda reports Dionna will likely not want to participate in any decision making for the pt. KAYLENE explained that in [place] if there is no POA/Guardian and if pt is not legally , that any decisions will need to be a consensus between all living children. Maria Fernanda voiced understanding. Maria Fernanda would like to review a list of SNFs in [place], [place] to begin reviewing. Maria Fernanda reports her address is [address] [place] [address]. A list of SNFs within 30 miles of Maria Fernanda's address with quality scores emailed to Maria Fernanda at [email or web address]. KAYLENE requested Maria Fernanda to provide a list of 5-10 choices as pt may be a difficult placement d/t history of alcohol abuse and insurance. D/c planning needs pending medical course. SW to continue following. Therapist Phys: Yeimy Shah, DENISSE, KARLA Day 3 Note: 05/16/2025: KAYLENE following for Substance Abuse Screening. Pavan Huynh. UZIEL. +tox for cannabinoids on admission. Hx of alcohol abuse- Wernickes Enecphalopathy. Pt remains intubated this date. D/c planning needs pending medical course. SW to continue following. Therapist Phys: Yeimy Shah, DENISSE, KARLA Day 6 Note: 05-19-25 KAYLENE following for SNF/dc planning. JIMBO Crooks emailed pt daughter list of SNF options in [place]. DENISSE Crooks sent referral to [facility] for pt to be screened for PAUL benefit. Pt daughter gave choices of SNFs. Kaylene spoke with admissions of [facility] in [place] and faxed clinical referral to facility. Therapist Phys: Marky Olivo Day 7 Note: 05-21-25 KAYLENE following for dc planning. DC plan curently pending. SNF referral sent to [facility] in [place] pt first choice and facility unable to accept. Pt daughter possibly wanting SNF in between [place] and [place]. Psych consult ordered. SW will continue to follow. Therapist Phys: Marky Olivo day 8 Note: 05-22-25 KAYLENE communicated dc planning with pt daughter through email. Pt daughter planning to be at [facility] tomorrow for family meeting. Pt daughter would like to continue looking fo [facility]SNF at [facility]. Pt evaluated by telepsych and recs for outpt services. KAYLENE faxed clinical referral to [facility] in [place] for review. Therapist Phys: Marky Olivo 9 Note: 05-23-25 SW and CM spoke with pt and family at bedside along with pt medical provider. SW and CM discussed LT care options at [facility]. Pt family continues to be agreeable to SNF. [place] [facility] [place]. No preferenc eof facility just something [place] family. SW sent referral to [facility] in [place] waiting on facility to review. Clinical referral also faxed to [facility] in [place] for review. Per [facility] PAUL application was completed and submitted on 05-22. Therapist Phys: Marky Olivo 12 Note: 05-26-25 SW following for SNF placement. KAYLENE sent referrals to [facility] and [facility] in [place]. Per admissions at both facilities they have minimal LT beds available and will review pt referral. SW emailed pt daughter to update her of dc planning. SW continuing to follow. Therapist Phys: Marky Olivo 13 Note: 05-28-25 SW continuing to follow for SNF placement. Referrals being reviewed by [facility] and [facility]. Kaylene spoke with admissions at both facilities. Pt referrals denied by both facilities. [facility] in [facility] still able to accept. SW left voicemail for admissions at [facility]. KAYLENE sent an email to pt daughter Maria Fernadna to update her on dc plan and current status with facilities. Therapist Phys: Marky Olivo Note: 05-29-25 Pt precert pending to admit at [facility]. Per admissions at facility he will need to follwo up with corporate to see if pt is able to admit PAUL pending. Therapist Phys: Marky Olivo Note: 05-30-25 Pt precert is currently pending at [facility] in [place]. KAYLENE emailed pt daughter Maria Fernanda to update her of dc plan and pending status. Therapist Phys: Marky Olivo Note: 06-02-25 SW following for SNF placement/dc planning. Sw left voicemail for [facility] admisisons at [facility] at 0900. Sw spoke with [facility] at 1215. Per [facility] pt precert auth has not been processed not officially denied. Sw faxed PT/OT re-evals to submit to try for approval. Facilit yis unable to accept pt LT under PAUL peniding status. KAYLENE and CM called facilities in [place] trying to find facilities to send referrals to who can accept pt PAUL pending. Referrals sent to [facility], [facility] and [facility]. SW spoke with admissions from [facility] pt clinically accepted by facility will need to get corporate business/financials to approve pt admitting under PAUL pending. SW waiting for facility approval. SW spoke with pt daughter Maria Fernanda via phone to update her of situation. Therapist Phys: Marky Olivo - * Requested Intvs/Referrals * Therapist Phys I Referrals: Substance Abuse Screening - Community Services/Interventions Substance Use Screening: Initiated - * HEALTHCARE DECISIONS * Living Will: Unknown Durable Power of Exchange Engineer for Health Care: No Directive, No SS Referral [facility] DNR Comfort Care: No Directive, No SS Referral [facility] DNR Comfort Care Arrest: No Directive, No SS Referral Entered by: Marky Olivo on 06/02/25 1449 Report Signed by: Marky Olivo on 06/02/25 1541 <<Signature on File>> <Electronically signed by Marky Olivo> Report Signed by: on PROGRESS NOTE - HOSPITALIST Observed: 3:13 PM Status: F Source: [facility] Medical Records Patient: DIONNA CONCEPCION [address] : 1975 [place], [place] [address] Location: [phone] Unit #: [id number] Progress Note - Hospitalist Rose Sanchez MD [...] abuse and previous CVA, was admitted to [facility] with complaints of excessive fatigue and generalized [...] POTASSIUM Collected: 5:30 AM Status: F Source: [facility] TYPE CODE TESTS RESULT OUT OF RANGE REFERENCE UNITS LAB L400.1500 Potassium 3.7 Normal 3.6-5.0 mEq/L Performed By: #### L400.1500 #### Main Laboratory ([facility]) [address] [place] [address] Regan Sahni MD PROGRESS NOTE - HOSPITALIST Observed: 11:00 AM Status: F Source: [facility] Medical Records Patient: DIONNA CONCEPCION [address] : 1975 [place], [place] [address] Location: [phone] Unit #: [id number] Progress Note - Hospitalist Aimee Chester MD [...] abuse and previous CVA, was admitted to [facility] with complaints of excessive fatigue and generalized [...] Abdomen: Soft, normal bowel sound, no organomegaly CUSTOMER ACCOUNT EXECUTIVE: Chronic left-sided weakness with history of CVA. [...] Collected: 5 5:17 AM Status: F Source: [facility] TYPE CODE TESTS RESULT OUT OF RANGE REFERENCE UNITS LAB L400.1500 Potassium 3.7 Normal 3.6-5.0 mEq/L Performed By: #### L400.1500 , L400.5100 #### Main Laboratory ([facility]) [address] [place] [address] Regan Sahni MD MAGNESIUM Collected: 5 5:17 AM Status: F Source: [facility] TYPE CODE TESTS RESULT OUT OF RANGE REFERENCE UNITS LAB L400.5100 Magnesium 2.1 Normal 1.8-2.5 mg/dL Performed By: #### L400.1500 , L400.5100 #### Main Laboratory ([facility]) [address] [place] [address] Regan Sahni MD CONSULTATION Observed: 05/31/2025 2:41 PM Status: F Source: [facility] Medical Records Patient: ANGELIADIONNA WINTERS [address] : 1975 [place], [place] [address] Location: [phone] Unit #: [id number] [facility] #: [id number] Consultation Johnna Massey APRN, CNP Service Date: [...] % (Auto) 15.3 % (15-45) 05/22/25 05:28 Crook % (Auto) 11.7 % (2-10) H 05/22/25 05:28 Eos % (Auto) 1.6 % (0-6) 05/22/25 05:28 Baso % (Auto) 0.7 % (0-2) 05/22/25 05:28 Nucleat RBC Rel Count 0.0 /100 WBC (<1) 05/22/25 05:28 Absolute Neuts (auto) 9700 /cmm (0854-3928) H 05/22/25 05:28 Absolute Lymphs (auto) 2100 /cmm (6606-8349) 05/22/25 05:28 Absolute Monos (auto) 1600 /cmm [...] 1.0 % 05/14/25 02:40 Abs Neuts (Manual) 98542 /cmm (2353-3798) H 05/14/25 02:40 Abs Lymphs (Manual) 364 /cmm (6218-8983) L 05/14/25 02:40 Abs Monocytes (Manual) 1092 [...] pH 7.0 (5.0-8.0) 05/13/25 09:16 Ur Specific [place] 1.021 (1.000-1.035) 05/13/25 09:16 Urine Protein 20 [...] HOSPITALIST Observed: 1:52 PM Status: F Source: [facility] Medical Records Patient: DIONNA CONCEPCION [address] 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 [...] Collected: 05/31/2025 5:29 AM Status: F Source: [facility] TYPE CODE TESTS RESULT OUT OF [...] eGFR equation used can be found at [email or web address]. AGE(years) AVERAGE GFR 50-59 93 ml/min/1.73 square meters Note:This result is normalized to 1.73 square meter body surface area. Height and weight are not factored. LAB L400.2100 Calcium 9.30 Normal 8.8-10.5 mg/dL Performed By: #### L400.0152 , L400.5100 #### Main Laboratory ([facility]) [address] [place] [address] Regan Sahni MD MAGNESIUM Collected: 5:29 AM Status: F Source: [facility] TYPE CODE TESTS RESULT OUT OF RANGE REFERENCE UNITS LAB L400.5100 Magnesium 1.9 Normal 1.8-2.5 mg/dL Performed By: #### L400.0152 , L400.5100 #### Main Laboratory ([facility]) [address] [place] [address] Regan Sahni MD CASE MANAGEMENT DAILY NOTE Observed: 4:05 PM Status: F Source: [facility] Case Management Patient: DIONNA CONCEPCION [address] : 1975 [place], [place] [address] Location: [phone] [facility] #: [id number] [id number] Case Management Daily Note Yeimy Metcalf RN Service Date: 05/30/25 Case Mgmt Daily Note - Plan of Care Claims Agent Right Of Way Agrees with Attending and Consult Plan: Yes - Patient Preferences AND Goals What is the patient's preference?: New SNF Recommended acute discharge goals: New SNF - Hospital Stay Days Day 1 Comment: 05/11 - Spoke with patient at bedside. Patient has Pavan Huynh. PCP is Pam Camara. appraiser personal property is his father, Dionna. Pharmacy is [facility] [...] states he has been falling at home. Claims Agent Right Of Way: Ana Snyder, RN Day 2 Comment: 05/12 - Spoke with pt. MRI completed and pending results. Neuro following. PT/OT ordered and recommended IPR. Rehab consulted to review case and waiting on response. Claims Agent Right Of Way: Shelbi Jackson Day 3 Comment: 05/13 Dispo pending medical course. IPR following, c/s placed 05/12. MRI B (-) for acute CVA. WBC 42.9. Lactic 3.7. BC/UA/Sputum Cx. IV Rocephin/IVF. PT/OT. Claims Agent Right Of Way: Jimena Carcamo RN Day Comment: 05/14: Patient transferred to ICU overnight. Intubated. PEEP 5. FiO2 40%. Propofol. Versed. Levo. Vaso. IVP Solu Cortef QID. Seizure precautions. WBC 36.5. 7/8 blood cultures pending. IV unasyn Q6. ID following. MRCP today. Surgery following. SW d/t alcohol abuse. Needs TBD pending medical medical course. Claims Agent Right Of Way: Sonja Mcmahan Day Comment: 05/15: Patient remains intubated. PEEP 5. FiO2 30%. Versed. Levo. IVP Solu Cortef QID. IV ampicillin Q6. WBC 25.3. 7/9 sputum positive. 8 blood cultures negative to date. GI following, ERCP today. Surgery following. ID following. SW following d/t alcohol abuse. Needs TBD pending medical course. Claims Agent Right Of Way: Sonja Mcmahan Day 6 Comment: 05/16: Patient remains intubated. PEEP 5. FiO2 30%. IVP Solu Cortef QID. LR @ 50. ID following. WBC 9.5. IV ampicillin Q6. Hgb 8.8. Needs TBD pending medical course and therapy recs post extubation. Claims Agent Right Of Way: Sonja Mcmahan Day 9 Comment: 05/19 Most recent CIWA 5. Daughter wanting SNF placement per previous CM. PTOT most recent recs IPR. Per nursing documentation, pt not alert and oriented. CM and BATCH AND FURNACE OPERATOR will speak with daugther further about DC [...] daughter with SNF choices, [facility] in [place], [place]. [facility] [place], [place]. [facility]- in [place], [place]. *[employer] attempting to get information from daughter/pt brother for manager sql PAUL screening. Claims Agent Right Of Way: Yeimy Metcalf, RN Comment: 05/20 Email this AM from daughter states she is interested in SNF facilities closer to a middle point for her/siser and pt dad/brother so they can all visit pt. Daughter is requesting a family meeting for this wednesday 05/23 at 11am to discuss placement options. Pt will require precert once a facility is obtained. Claims Agent Right Of Way: Yeimy Metcalf, RN Comment: 05/21 Psych consult placed per attending. EEG ordered per neurology, possible LP per neurology notes. ID following, Unasyn active until 05/26. Telesitter present in room. Pt remains confused. [employer] attempting agents' records clerk PAUL krunal with family. SNF choices given by daughter to CM and BATCH AND FURNACE OPERATOR in [place] and [place]. BATCH AND FURNACE OPERATOR working on placement. Awaiting psych consult to review further placement barriers. Claims Agent Right Of Way: Yeimy Metcalf, RN Comment: 05/22 KAYLENE is working with patients daughter for placement note reads dc planning with pt daughter through email. Pt daughter planning to be at [facility] tomorrow for family meeting. Pt daughter would like to continue looking for SNF at [facility]. Pt evaluated by telepsych and recs for outpt services. KAYLENE faxed clinical referral to [facility] in [place] for review. Claims Agent Right Of Way: Beverly Mckeon, RN Day Comment: 05/23 Family meeting at the bedside with attending, Palliative Care DIRECTOR RECREATION, CM and BATCH AND FURNACE OPERATOR. Medical questions answered per attending. CM and BATCH AND FURNACE OPERATOR spoke about DC planning/placement options/barriers. BATCH AND FURNACE OPERATOR sending clinicals to [facility] and [facility] to check on placement avalibility. Per [facility], PAUL screen complete and pending number provided to BATCH AND FURNACE OPERATOR. CM and BATCH AND FURNACE OPERATOR attempting agents' records clerk placement. Family requesting to speak with progressive care unit registered nurse/administration about concerns with pt care/complaints. CM spoke with [employer] x2 to relay information. Email sent to progressive care unit registered nurse as she is off to follow up with concerns once back in office. Claims Agent Right Of Way: Yeimy Metcalf, RN Comment: 05/26 Telesitter removed by primary RN over the weekend. Telesitter remains out of the room at this time. Per BATCH AND FURNACE OPERATOR, still sending referrals and waiting on accepting facility. Pt also PAUL pending for agents' records clerk placement. Claims Agent Right Of Way: Yeimy Metcalf, RN Comment: 05/27 Per BATCH AND FURNACE OPERATOR, facilities requested by daughter in [place] are continuing to review. Precert to start once accepted. Claims Agent Right Of Way: Yeimy Metcalf, RN Comment: 05/28 Per BATCH AND FURNACE OPERATOR, facilities still reviewing pt. Per BATCH AND FURNACE OPERATOR, [place] [facility] agreeable to take pt but daughter stating that facility is too far away. Precert to start once a facility accepts. Claims Agent Right Of Way: Yeimy Metcalf, RN Comment: 05/29/25 Pre-cert pending to [facility] in [place]. Claims Agent Right Of Way: Beverly Mckeon, RN Comment: 05/30 Precert remains PENDING for [facility]. Multiple facilites have been exhausted by BATCH AND FURNACE OPERATOR and all facilities picked by daughter have no availability, don't accept PAUL pending, or will not accept due to pt behaviors/history. Daughter previously agreeable to a middle point for pt between [place] and [place] so other family members could visit patient. Pt has been medically cleared for DC and DC planning needing to move forward with [facility] per CM Director Shireen. Daughter updated via email(daughters preferred contact method) that DC planning needing to move forward and we are moving forward with the facility that has accepted him and has a skilled nursing bed available. Daughter updated via email that she can move pt to a closer facility from [facility] if she desires. Claims Agent Right Of Way: Yeimy Metcalf, RN - Respiratory Equipment Does [...] Observed: 025 4:02 PM Status: F Source: [facility] Agency Cashier Patient: DIONNA CONCEPCION [address] : 1975 [place], [place] [address] Location: [phone] Unit #: [id number] Social Work Daily Note Marky Olivo Service Date: 05/30/25 Daily Note - * Psychosocial Assessment * I have reviewed nursing and case management psychosocial information.: Yes - * Hospital Stay Days * Day 1 Note: 05/14/2025: c/s for Substance Abuse Screening. Pavan Huynh. UZIEL. +tox for cannabinoids on admission. Hx of alcohol abuse. Enecphalopathy. Pt intubated overnight. Agency Cashier to follow peripherally to discuss with pt when medically appropriate. Therapist Phys: Yeimy Shah, INTERNET SALES DIRECTOR, PSYCH SOCIAL WORKER Day 2 Note: 05/15/2025: KAYLENE following for Substance Abuse Screening. Pavan Huynh. UZIEL. +tox for cannabinoids on admission. Hx of alcohol abuse- Wernickes Enecphalopathy. Pt remains intubated this date. KAYLENE updated by nursing staff that the pt's family is requesting pt d/c to a SNF in the [place], [place] area when medically ready for d/c. KAYLENE called and discussed this with pt's daughter, Maria Fernanda. Maria Fernanda reports most of the family lives between [place] and [place], so [place] would be a good middle location. KAYLENE [...] it will be a short term or skilled nursing placement. Maria Fernanda reports she has not talked with her father in 3 years. Maria Fernanda is unaware of pt's finances and does not know of any POA paperwork that the pt has ever completed. Maria Fernanda stated that the pt is not legally to anyone. Maria Fernanda reports the pt has three living children: Maria Fernanda Glynn PH: [phone], Beverly Jamey PH: [phone] AND Dionna Jamey PH: [phone]. Maria Fernanda reports Dionna will likely not want to participate in any decision making for the pt. KAYLENE explained that in [place] if there is no POA/Guardian and if pt is not legally , that any decisions will need to be a consensus between all living children. Maria Fernanda voiced understanding. Maria Fernanda would like to review a list of SNFs in [place], [place] to begin reviewing. Maria Fernanda reports her address is [address] [place] [id number]. A list of SNFs within 30 miles of Maria Fernanda's address with quality scores emailed to Maria Fernanda at [email or web address]. KAYLENE requested Maria Fernanda to provide a list of 5-10 choices as pt may be a difficult placement d/t history of alcohol abuse and insurance. D/c planning needs pending medical course. SW to continue following. Therapist Phys: Yeimy Shah, INTERNET SALES DIRECTOR, PSYCH SOCIAL WORKER Day 3 Note: 05/16/2025: SW following for Substance Abuse Screening. Pavan Huynh. YULIWA. +tox for cannabinoids on admission. Hx of alcohol abuse- Wernickes Enecphalopathy. Pt remains intubated this date. D/c planning needs pending medical course. SW to continue following. Therapist Phys: Yeimy Shah, INTERNET SALES DIRECTOR, PSYCH SOCIAL WORKER Day 6 Note: 05-19-25 SW following for SNF/dc planning. JIMBO Crooks emailed pt daughter list of SNF options in [place]. DENISSE Crooks sent referral to [facility] for pt to be screened for PAUL benefit. Pt daughter gave choices of SNFs. Kaylene spoke with admissions of [facility] in [place] and faxed clinical referral to facility. Therapist Phys: Marky Olivo 7 Note: 05-21-25 KAYLENE following for dc planning. DC plan curently pending. SNF referral sent to [facility] in [place] pt first choice and facility unable to accept. Pt daughter possibly wanting SNF in between [place] and [place]. Psych consult ordered. SW will continue to follow. Therapist Phys: Marky Olivo 8 Note: 05-22-25 KAYLENE communicated dc planning with pt daughter through email. Pt daughter planning to be at [facility] tomorrow for family meeting. Pt daughter would like to continue looking fo rSNF at [facility]. Pt evaluated by telepsych and recs for outpt services. KAYLENE faxed clinical referral to [facility] in [place] for review. Therapist Phys: Marky Olivo 9 Note: 05-23-25 KAYLENE and JIMBO spoke with pt and family at bedside along with pt medical provider. KAYLENE and JIMBO discussed LT care options at [facility]. Pt family continues to be agreeable to SNF. [place] [facility] [place]. No preferenc eof facility just something [place] [facility] [place] for all family. KAYLENE sent referral to [facility] in [place] waiting on facility to review. Clinical referral also faxed to [facility] in [place] for review. Per [facility] PAUL application was completed and submitted on 05-22. Therapist Phys: Marky Olivo day 12 Note: 05-26-25 SW following for SNF placement. SW sent referrals to [facility] and [facility] in [place]. Per admissions at both facilities they have minimal LT beds available and will review pt referral. SW emailed pt daughter to update her of dc planning. SW continuing to follow. Therapist Phys: Marky Olivo Note: 05-28-25 SW continuing to follow for SNF placement. Referrals being reviewed by [facility] and [facility]. Sw spoke with admissions at both facilities. Pt referrals denied by both facilities. [facility] in [facility] still able to accept. SW left voicemail for admissions at [facility]. SW sent an email to pt daughter Maria Fernanda to update her on dc plan and current status with facilities. Therapist Phys: Marky Olivo Note: 05-29-25 Pt precert pending to admit at [facility]. Per admissions at facility he will need to follwo up with corporate to see if pt is able to admit PAUL pending. Therapist Phys: Marky Olivo Note: 05-30-25 Pt precert is currently pending at [facility]. SW emailed pt daughter Maria Fernanda to update her of dc plan and pending status. Therapist Phys: Marky Olivo - * Requested Intvs/Referrals * Therapist Phys I Referrals: Substance Abuse Screening - Community Services/Interventions Substance Use Screening: Initiated - * HEALTHCARE DECISIONS * Living Will: Unknown Durable Power of Exchange Engineer for Health Care: No Directive, No SS Referral [facility] DNR Comfort Care: No Directive, No SS Referral [facility] DNR Comfort Care Arrest: No Directive, No SS Referral Entered by: Marky Olivo on 05/30/25 1513 Report Signed by: Marky Olivo on 05/30/25 1602 <<Signature on File>> <Electronically signed by Marky Olivo> Report Signed by: on PROGRESS NOTE - HOSPITALIST Observed: 3:19 PM Status: F Source: [facility] Medical Records Patient: DIONNA CONCEPCION [address] : 1975 [place], [place] [address] Location: [phone] Unit #: [id number] [facility]: [id number] Progress Note - Hospitalist Aimee Chester MD [...] abuse and previous CVA, was admitted to [facility] with complaints of excessive fatigue and generalized [...] for SNF placement. Discharge planning to a senior care facility for continued recovery and rehabilitation. PreCert needed DVT prophylaxis: Lovenox Current Code Status AND Diet: 05/11/25 18:30 Code Status Routine Resuscitation Status: Full Code Code Status Order Placed: Code Status Ordered 05/11/25 at 1830 05/17/25 10:31 [facility] Diet Texture: Regular Fluid Restrictions?: No Subjective [...] MAGNESIUM Collected: 6:16 AM Status: F Source: [facility] TYPE CODE TESTS RESULT OUT OF RANGE REFERENCE UNITS LAB L400.5100 Magnesium 1.9 Normal 1.8-2.5 mg/dL Performed By: #### L400.5100 #### Main Laboratory ([facility]) [address] [place] [address] Regan Sahni MD CASE MANAGEMENT DAILY NOTE Observed: 4:15 PM Status: F Source: [facility] Case Management Patient: DIONNA CONCEPCION [address] : 1975 [place], [place] [address] Location: [phone] Unit #: [id number] Case Management Daily Note Beverly D Bourk RN Service Date: 05/29/25 Case Mgmt Daily Note - Plan of Care Claims Agent Right Of Way Agrees with Attending and Consult Plan: Yes - Patient Preferences AND Goals What is the patient's preference?: New SNF Recommended acute discharge goals: New SNF - Hospital Stay Days Day 1 Comment: 05/11 - Spoke with patient at bedside. Patient has Pavan Jose Rauldwightr. PCP is Pam Camara. appraiser personal property is his father, Dionna. [facility]. Denies services, DME. He is independent [...] states he has been falling at home. Claims Agent Right Of Way: Ana Snyder, RN Day 2 Comment: 05/12 - Spoke with pt. MRI completed and pending results. Neuro following. PT/OT ordered and recommended IPR. Rehab consulted to review case and waiting on response. Claims Agent Right Of Way: Shlebi Jackson Day 3 Comment: 05/13 Dispo pending medical course. IPR following, c/s placed 05/12. MRI B (-) for acute CVA. WBC 42.9. Lactic 3.7. BC/UA/Sputum Cx. IV Rocephin/IVF. PT/OT. Claims Agent Right Of Way: Jimena Carcamo, RN Day 4 Comment: 05/14: Patient transferred to ICU overnight. Intubated. PEEP 5. FiO2 40%. Propofol. Versed. Levo. Vaso. IVP Solu Cortef QID. Seizure precautions. WBC 36.5. 7/8 blood cultures pending. IV unasyn Q6. ID following. MRCP today. Surgery following. SW d/t alcohol abuse. Needs TBD pending medical medical course. Claims Agent Right Of Way: Sonja Mcmahan Day 5 Comment: 05/15: Patient remains intubated. PEEP 5. FiO2 30%. Versed. Levo. IVP Solu Cortef QID. IV ampicillin Q6. WBC 25.3. 7/9 sputum positive. 7/8 blood cultures negative to date. GI following, ERCP today. Surgery following. ID following. SW following d/t alcohol abuse. Needs TBD pending medical course. Claims Agent Right Of Way: Sonja Mcmahan 6 Comment: 05/16: Patient remains intubated. PEEP 5. FiO2 30%. IVP Solu Cortef QID. LR @ 50. ID following. WBC 9.5. IV ampicillin Q6. Hgb 8.8. Needs TBD pending medical course and therapy recs post extubation. Claims Agent Right Of Way: Sonja Mcmahan Comment: 05/19 Most recent CIWA 5. Daughter wanting SNF placement per previous CM. PTOT most recent recs IPR. Per nursing documentation, pt not alert and oriented. CM and BATCH AND FURNACE OPERATOR will speak with daugther further about DC [...] daughter with SNF choices, [facility] in [place], [place]. [facility] [place], [place]. [facility]- in [place], [place]. *[employer] attempting to get information from daughter/pt brother for manager sql PAUL screening. Claims Agent Right Of Way: Yeimy Metcalf, RN Comment: 05/20 Email this AM from daughter states she is interested in SNF facilities closer to a middle point for her/siser and pt dad/brother so they can all visit pt. Daughter is requesting a family meeting for this wednesday 05/23 at 11am to discuss placement options. Pt will require precert once a facility is obtained. Claims Agent Right Of Way: Yeimy Metcalf, RN Comment: 05/21 Psych consult placed per attending. EEG ordered per neurology, possible LP per neurology notes. ID following, Unasyn active until 05/26. Telesitter present in room. Pt remains confused. [employer] attempting agents' records clerk PAUL krunal with family. SNF choices given by daughter to CM and BATCH AND FURNACE OPERATOR in [place] and [place]. BATCH AND FURNACE OPERATOR working on placement. Awaiting psych consult to review further placement barriers. Claims Agent Right Of Way: Yeimy Metaclf, RN Comment: 05/22 SW is working with patients daughter for placement note reads dc planning with pt daughter through email. Pt daughter planning to be at [facility] tomorrow for family meeting. Pt daughter would like to continue looking for SNF at dc. Pt evaluated by telepsych and recs for outpt services. SW faxed clinical referral to [facility] in [place] for review. Claims Agent Right Of Way: Beverly Mckeon, RN Comment: 05/23 Family meeting at the bedside with attending, Palliative Care DIRECTOR RECREATION, CM and BATCH AND FURNACE OPERATOR. Medical questions answered per attending. CM and BATCH AND FURNACE OPERATOR spoke about DC planning/placement options/barriers. BATCH AND FURNACE OPERATOR sending clinicals to [facility] and [facility] to check on placement avalibility. Per [place], PAUL screen complete and pending number provided to BATCH AND FURNACE OPERATOR. CM and BATCH AND FURNACE OPERATOR attempting agents' records clerk placement. Family requesting to speak with progressive care unit registered nurse/administration about concerns with pt care/complaints. CM spoke with [employer] x2 to relay information. Email sent to progressive care unit registered nurse as she is off to follow up with concerns once back in office. Claims Agent Right Of Way: Yeimy Metcalf, RN Comment: 05/26 Telesitter removed by primary RN over the weekend. Telesitter remains out of the room at this time. Per BATCH AND FURNACE OPERATOR, still sending referrals and waiting on accepting facility. Pt also PAUL pending for skilled nursing placement. Claims Agent Right Of Way: Yeimy Metcalf, RN Comment: 05/27 Per BATCH AND FURNACE OPERATOR, facilities requested by daughter in [place] are continuing to review. Precert to start once accepted. Claims Agent Right Of Way: Yeimy Metcalf, RN Comment: 05/28 Per BATCH AND FURNACE OPERATOR, facilities still reviewing pt. Per BATCH AND FURNACE OPERATOR, [place] [facility] agreeable to take pt but daughter stating that facility is too far away. Precert to start once a facility accepts. Claims Agent Right Of Way: Yeimy Metcalf RN Comment: 05/29/25 Pre-cert pending to [facility] in [place]. Claims Agent Right Of Way: Beverly Mckeon, RN - Respiratory Equipment Does [...] Signed by: Beverly Mckeon RN on 05/29/25 1611 <<Signature on File>> <Electronically signed by Beverly Mckeon RN> Co-Signed by: on SOCIAL WORK DAILY NOTE Observed: 025 3:53 PM Status: F Source: [facility] Agency Cashier Patient: DIONNA CONCEPCION [address] : 1975 [place], [place] [address] Location: [address] [place] [address] Unit #: [id number] Social Work Daily Note Marky Olivo Service Date: 05/29/25 Daily Note - * Psychosocial Assessment * I have reviewed nursing and case management psychosocial information.: Yes - * Hospital Stay Days * Day 1 Note: 05/14/2025: SW c/s for Substance Abuse Screening. Pavan TRIPLETT. +tox for cannabinoids on admission. Hx of alcohol abuse. Enecphalopathy. Pt intubated overnight. Agency Cashier to follow peripherally to discuss with pt when medically appropriate. Therapist Phys: Yeimy Shah, INTERNET SALES DIRECTOR, PSYCH SOCIAL WORKER Day 2 Note: 05/15/2025: SW following for Substance Abuse Screening. Pavan TRIPLETT. +tox for cannabinoids on admission. Hx of alcohol abuse- Wernickes Enecphalopathy. Pt remains intubated this date. KAYLENE updated by nursing staff that the pt's family is requesting pt d/c to a SNF in the [place], [place] area when medically ready for d/c. KAYLENE called and discussed this with pt's daughter, Maria Fernanda. Maria Fernanda reports most of the family lives between [place] and [place], so [place] would be a good middle location. KAYLENE [...] it will be a short term or agents' records clerk placement. Maria Fernanda reports she has not talked with her father in 3 years. Maria Fernanda is unaware of pt's finances and does not know of any POA paperwork that the pt has ever completed. Maria Fernanda stated that the pt is not legally to anyone. Maria Fernanda reports the pt has three living children: Maria Fernanda Glynn PH: [phone], Beverly Jamey PH: [phone] AND Dionna Jamey PH: [phone]. Maria Fernanda reports Dionna will likely not want to participate in any decision making for the pt. KAYLENE explained that in [place] if there is no POA/Guardian and if pt is not legally , that any decisions will need to be a consensus between all living children. Maria Fernanda voiced understanding. Maria Fernanda would like to review a list of SNFs in [place], [place] to begin reviewing. Maria Fernanda reports her address is [address] [place] [id number]. A list of SNFs within 30 miles of Maria Fernanda's address with quality scores emailed to Maria Fernanda at [email or web address]. KAYLENE requested Maria Fernanda to provide a list of 5-10 choices as pt may be a difficult placement d/t history of alcohol abuse and insurance. D/c planning needs pending medical course. SW to continue following. Therapist Phys: Yeimy Shah, DENISSE, KARLA Day 3 Note: 05/16/2025: KAYLENE following for Substance Abuse Screening. Pavan TRIPLETT. +tox for cannabinoids on admission. Hx of alcohol abuse- Wernickes Enecphalopathy. Pt remains intubated this date. D/c planning needs pending medical course. SW to continue following. Therapist Phys: Yeimy Shah, INTERNET SALES DIRECTOR, PSYCH SOCIAL WORKER Day 6 Note: 05-19-25 KAYLENE following for SNF/dc planning. JIMBO Crooks emailed pt daughter list of SNF options in [place]. DENISSE Crooks sent referral to [facility] for pt to be screened for PAUL benefit. Pt daughter gave choices of SNFs. Kaylene spoke with admissions of [facility] in [place] and faxed clinical referral to facility. Therapist Phys: Marky Olivo Day 7 Note: 05-21-25 KAYLENE following for dc planning. DC plan curently pending. SNF referral sent to [facility] in [place] pt first choice and facility unable to accept. Pt daughter possibly wanting SNF in between [place] and [place]. Psych consult ordered. SW will continue to follow. Therapist Phys: Marky Olivo day 8 Note: 05-22-25 KAYLENE communicated dc planning with pt daughter through email. Pt daughter planning to be at [facility] tomorrow for family meeting. Pt daughter would like [facility]. Pt evaluated by telepsych and recs for outpt services. KAYLENE faxed clinical referral to [facility] in [place] for review. Therapist Phys: Marky Olivo day 9 Note: 05-23-25 KAYLENE and JIMBO spoke with pt and family at bedside along with pt medical provider. KAYLENE and JIMBO discussed [facility] care options at [facility]. Pt family continues to be agreeable to SNF. [place] [facility] [place]. No preferenc eof facility just something [place] family. KAYLENE sent referral to [facility] in [place] waiting on facility to review. Clinical referral also faxed to [facility] in [place] for review. Per [facility] PAUL application was completed and submitted on 05-22. Therapist Phys: Marky Olivo day 12 Note: 05-26-25 KAYLENE following for SNF placement. KAYLENE sent referrals to [facility] and [facility] in [place]. Per admissions at both facilities they have minimal LT beds available and will review pt referral. SW emailed pt daughter to update her of dc planning. SW continuing to follow. Therapist Phys: Marky Olivo day 13 Note: 05-28-25 SW continuing to follow for SNF placement. Referrals being reviewed by [facility] and [facility]. Sw spoke with admissions at both facilities. Pt referrals denied by both facilities. [facility] in [facility] still able to accept. SW left voicemail for admissions at [facility]. KAYLENE sent an email to pt daughter Maria Fernanda to update her on dc plan and current status with facilities. Therapist Phys: Marky Olivo day 14 Note: 05-29-25 Pt precert pending to admit at [facility]. Per admissions at facility he will need to follwo up with corporate to see if pt is able to admit PAUL pending. Therapist Phys: Marky Olivo - * Requested Intvs/Referrals * Therapist Phys I Referrals: Substance Abuse Screening - Community Services/Interventions Substance Use Screening: Initiated - * HEALTHCARE DECISIONS * Living Will: Unknown Durable Power of Exchange Engineer for Health Care: No Directive, No SS Referral [facility] DNR Comfort Care: No Directive, No SS Referral [facility] DNR Comfort Care Arrest: No Directive, No SS Referral Entered by: Marky Olivo on 05/29/25 1551 Report Signed by: Marky Olivo on 05/29/25 1553 <<Signature on File>> <Electronically signed by Marky Olivo> Report Signed by: on PROGRESS NOTE - HOSPITALIST Observed: 3:17 PM Status: F Source: [facility] Medical Records Patient: DIONNA CONCEPCION [address] : 1975 [place], [place] [address] Location: [phone] Unit #: [id number] Progress Note - Hospitalist Aimee Chester MD Service Dt/Tm: 05/29/25 7968 Assessment/Plan Assessment/Plan (1) Wernickes encephalopathy: Status: Acute [...] abuse and previous CVA, was admitted to [facility] with complaints of excessive fatigue and generalized [...] for SNF placement. Discharge planning to a senior care facility for continued recovery and rehabilitation. PreCert needed DVT prophylaxis: Lovenox Current Code Status AND Diet: 05/11/25 18:30 Code Status Routine Resuscitation Status: Full Code Code Status Order Placed: Code Status Ordered 05/11/25 at 1830 05/17/25 10:31 [facility] Diet Texture: Regular Fluid Restrictions?: No Subjective [...] 05/29/2025 4:49 AM S tatus: F Source: [facility] TYPE CODE TESTS RESULT OUT OF [...] eGFR equation used can be found at https://www.kidney.org/zrsg-qrrpn-yoophago. AGE(years) AVERAGE GFR 50-59 93 ml/min/1.73 square meters Note:This result is normalized to 1.73 square meter body surface area. Height and weight are not factored. LAB L400.2100 Calcium 9.70 Normal 8.8-10.5 mg/dL LAB L400.2120 Albumin 3.6 Normal 3.5-5.0 g/dL LAB L400.2200 Phosphorus 6.1 High 2.4-4.7 mg/dL Performed By: #### L400.5100 , L400.0410 #### Main Laboratory ([facility]) [address] [place] [address] Regan Sahni MD MAGNESIUM Collected: 4:49 AM Status: F Source: [facility] TYPE CODE TESTS RESULT OUT OF RANGE REFERENCE UNITS LAB L400.5100 Magnesium 1.9 Normal 1.8-2.5 mg/dL Performed By: #### L400.5100 , L400.0410 #### Main Laboratory ([facility]) [address] [facility] [place] [address] Regan Sahni MD CBC WITHOUT DIFFERENTIAL Collected: 4:49 AM Status: F Source: [facility] TYPE CODE TESTS RESULT OUT OF [...] Performed By: #### L100.0050 #### Main Laboratory ([facility]) [address] [place] [address] Regan Sahni MD CASE MANAGEMENT DAILY NOTE Observed: 3:36 PM Status: F Source: [facility] Case Management Patient: DIONNA CONCEPCION [address] : 1975 [place], [place] [address] Location: [phone] Unit #: [id number] Case Management Daily Note Yeimy Metcalf RN Service Date: 05/28/25 Case Mgmt Daily Note - Plan of Care Claims Agent Right Of Way Agrees with Attending and Consult Plan: Yes - Patient Preferences AND Goals What is the patient's preference?: Services to be Determined Recommended acute discharge goals: Services to be Determined - Hospital Stay Days Day 1 Comment: 05/11 - Spoke with patient at bedside. Patient has Pavan Huynh. PCP is Pam Camara. appraiser personal property is his father, Dionna. [facility]. Denies services, DME. He is independent [...] states he has been falling at home. Claims Agent Right Of Way: Ana Snyder, RN Day 2 Comment: 05/12 - Spoke with pt. MRI completed and pending results. Neuro following. PT/OT ordered and recommended IPR. Rehab consulted to review case and waiting on response. Claims Agent Right Of Way: Shelbi Jackson Day 3 Comment: 05/13 Dispo pending medical course. IPR following, c/s placed 05/12. MRI B (-) for acute CVA. WBC 42.9. Lactic 3.7. BC/UA/Sputum Cx. IV Rocephin/IVF. PT/OT. Claims Agent Right Of Way: Jimena Carcamo, RN Day 4 Comment: 05/14: Patient transferred to ICU overnight. Intubated. PEEP 5. FiO2 40%. Propofol. Versed. Levo. Vaso. IVP Solu Cortef QID. Seizure precautions. WBC 36.5. 7/8 blood cultures pending. IV unasyn Q6. ID following. MRCP today. Surgery following. SW d/t alcohol abuse. Needs TBD pending medical medical course. Claims Agent Right Of Way: Sonja Mcmahan Day 5 Comment: 05/15: Patient remains intubated. PEEP 5. FiO2 30%. Versed. Levo. IVP Solu Cortef QID. IV ampicillin Q6. WBC 25.3. 05/14 sputum positive. 05/13 blood cultures negative to date. GI following, ERCP today. Surgery following. ID following. SW following d/t alcohol abuse. Needs TBD pending medical course. Claims Agent Right Of Way: Sonja Mcmahan Day 6 Comment: 05/16: Patient remains intubated. PEEP 5. FiO2 30%. IVP Solu Cortef QID. LR @ 50. ID following. WBC 9.5. IV ampicillin Q6. Hgb 8.8. Needs TBD pending medical course and therapy recs post extubation. Claims Agent Right Of Way: Sonja Mcmahan Day 9 Comment: 05/19 Most recent CIWA 5. Daughter wanting SNF placement per previous CM. PTOT most recent recs IPR. Per nursing documentation, pt not alert and oriented. CM and BATCH AND FURNACE OPERATOR will speak with daugther further about DC [...] daughter with SNF choices, [facility] in [place], [place]. [facility] [place], [place]. [facility]- in [place], [place]. *[employer] attempting to get information from daughter/pt brother for manager sql PAUL screening. Claims Agent Right Of Way: Yeimy Metcalf, RN Comment: 05/20 Email this AM from daughter states she is interested in SNF facilities closer to a middle point for her/siser and pt dad/brother so they can all visit pt. Daughter is requesting a family meeting for this wednesday 05/23 at 11am to discuss placement options. Pt will require precert once a facility is obtained. Claims Agent Right Of Way: Yeimy Metcalf, RN Comment: 05/21 Psych consult placed per attending. EEG ordered per neurology, possible LP per neurology notes. ID following, Unasyn active until 05/26. Telesitter present in room. Pt remains confused. [employer] attempting skilled nursing PAUL krunal with family. SNF choices given by daughter to CM and BATCH AND FURNACE OPERATOR in [place] and [place]. BATCH AND FURNACE OPERATOR working on placement. Awaiting psych consult to review further placement barriers. Claims Agent Right Of Way: Yeimy Metcalf, RN Comment: 05/22 SW is working with patients daughter for placement note reads dc planning with pt daughter through email. Pt daughter planning to be at [facility] tomorrow for family meeting. Pt daughter would like to [facility]. Pt evaluated by telepsych and recs for outpt services. KAYLENE faxed clinical referral to [facility] in [place] for review. Claims Agent Right Of Way: Beverly Mckeon, RN Comment: 05/23 Family meeting at the bedside with attending, Palliative Care DIRECTOR RECREATION, CM and BATCH AND FURNACE OPERATOR. Medical questions answered per attending. CM and BATCH AND FURNACE OPERATOR spoke about DC planning/placement options/barriers. BATCH AND FURNACE OPERATOR sending clinicals to [facility] and [facility] to check on placement avalibility. Per [place], PAUL screen complete and pending number provided to BATCH AND FURNACE OPERATOR. CM and BATCH AND FURNACE OPERATOR attempting agents' records clerk placement. Family requesting to speak with progressive care unit registered nurse/administration about concerns with pt care/complaints. CM spoke with [employer] to relay information. Email sent to progressive care unit registered nurse as she is off to follow up with concerns once back in office. Claims Agent Right Of Way: Yeimy Metcalf, RN Comment: 05/26 Telesitter removed by primary RN over the weekend. Telesitter remains out of the room at this time. Per BATCH AND FURNACE OPERATOR, still sending referrals and waiting on accepting facility. Pt also PAUL pending for agents' records clerk placement. Claims Agent Right Of Way: Yeimy Metcalf, RN 17 Comment: 05/27 Per BATCH AND FURNACE OPERATOR, facilities requested by daughter in [place] are continuing to review. Precert to start once accepted. Claims Agent Right Of Way: Yeimy Metcalf, RN Day 18 Comment: 05/28 Per BATCH AND FURNACE OPERATOR, facilities still reviewing pt. Per BATCH AND FURNACE OPERATOR, [facility] agreeable to take pt but daughter stating that facility is too far away. Precert to start once a facility accepts. Claims Agent Right Of Way: Yeimy Metcalf, RN - Respiratory Equipment Does [...] Observed: 025 3:32 PM Status: F Source: [facility] Agency Cashier Patient: DIONNA CONCEPCION [address] : 1975 [place], [place] [address] Location: [address] [place] [address] Unit #: [id number] Social Work Daily Note Marky Olivo Service Date: 07/23/25 SW Daily Note - * Psychosocial Assessment * I have reviewed nursing and case management psychosocial information.: Yes - * Hospital Stay Days * Day 1 Note: 05/14/2025: SW c/s for Substance Abuse Screening. [place] Ambetter. CIWA. +tox for cannabinoids on admission. Hx of alcohol abuse. Enecphalopathy. Pt intubated overnight. Agency Cashier to follow peripherally to discuss with pt when medically appropriate. Therapist Phys: Yeimy Shah, INTERNET SALES DIRECTOR, PSYCH SOCIAL WORKER Day 2 Note: 05/15/2025: KAYLENE following for Substance Abuse Screening. [place] Ambetter. CIWA. +tox for cannabinoids on admission. Hx of alcohol abuse- Wernickes Enecphalopathy. Pt remains intubated this date. KAYLENE updated by nursing staff that the pt's family is requesting pt d/c to a SNF in the [place], [place] area when medically ready for d/c. KAYLENE called and discussed this with pt's daughter, Maria Fernanda. Maria Fernanda reports most of the family lives between [place] and [place], so [place] would be a good middle location. KAYLENE [...] it will be a short term or agents' records clerk placement. Maria Fernanda reports she has not talked with her father in 3 years. Maria Fernanda is unaware of pt's finances and does not know of any POA paperwork that the pt has ever completed. Maria Fernanda stated that the pt is not legally to anyone. Maria Fernanda reports the pt has three living children: Maria Fernanda Glynn PH: [phone], Beverly Jamey PH: [phone] AND Dionna Jamey PH: [phone]. Maria Fernanda reports Dionna will likely not want to participate in any decision making for the pt. KAYLENE explained that in [place] if there is no POA/Guardian and if pt is not legally , that any decisions will need to be a consensus between all living children. Maria Fernanda voiced understanding. Maria Fernanda would like to review a list of SNFs in [place], [place] to begin reviewing. Maria Fernanda reports [place] is [address] [place], [place] [address] [address]. A list of SNFs within 30 miles of Maria Fernanda's address with quality scores emailed to Maria Fernanda at [email or web address]. KAYLENE requested Maria Fernanda to provide a list of 5-10 choices as pt may be a difficult placement d/t history of alcohol abuse and insurance. D/c planning needs pending medical course. SW to continue following. Therapist Phys: Yeimy Shah, DENISSE, KARLA Day 3 Note: 05/16/2025: SW following for Substance Abuse Screening. Pavan Huynh. UZIEL. +tox for cannabinoids on admission. Hx of alcohol abuse- Wernickes Enecphalopathy. Pt remains intubated this date. D/c planning needs pending medical course. SW to continue following. Therapist Phys: Yeimy Shah, DENISSE, KARLA Day 6 Note: 05-19-25 KAYLENE following for SNF/dc planning. JIMBO Crooks emailed pt daughter list of SNF options in [place]. DENISSE Crooks sent referral to [facility] for pt to be screened for PAUL benefit. Pt daughter gave choices of SNFs. Kaylene spoke with admissions of [facility] in [place] and faxed clinical referral to facility. Therapist Phys: Marky Olivo 7 Note: 05-21-25 KAYLENE following for dc planning. DC plan curently pending. SNF referral sent to [facility] in [place] pt first choice and facility unable to accept. Pt daughter possibly wanting SNF in between [place] and [place]. Psych consult ordered. KAYLENE will continue to follow. Therapist Phys: Marky Olivo 8 Note: 05-22-25 KAYLENE communicated dc planning with pt daughter through email. Pt daughter planning to be at [facility] tomorrow for family meeting. Pt daughter would like [facility]. Pt evaluated by telepsych and recs for outpt services. KAYLENE faxed clinical referral to [facility] in [place] for review. Therapist Phys: Marky Olivo 9 Note: 05-23-25 KAYLENE and JIMBO spoke with pt and family at bedside along with pt medical provider. KAYLENE and JIMBO discussed [facility] care options at [facility]. Pt family continues to be agreeable to SNF. [place] is [place] [facility] [place]. No preferenc eof facility just something [place]. KAYLENE sent referral to [facility] in [place] waiting on facility to review. Clinical referral also faxed to [facility] in [place] for review. Per [facility] application was completed and submitted on 05-22. Therapist Phys: Marky Olivo day 12 Note: 05-26-25 KAYLENE following for SNF placement. SW sent referrals to [facility] and [facility] in [place]. Per admissions at both facilities they have minimal LT beds available and will review pt referral. SW emailed pt daughter to update her of dc planning. SW continuing to follow. Therapist Phys: Marky Olivo Note: 05-28-25 SW continuing to follow for SNF placement. Referrals being reviewed by [facility] and [facility]. Sw spoke with admissions at both facilities. Pt referrals denied by both facilities. [facility] in [facility] still able to accept. SW left voicemail for admissions at [facility]. KAYLENE sent an email to pt daughter Maria Fernanda to update her on dc plan and current status with facilities. Therapist Phys: Marky Olivo - * Requested Intvs/Referrals * Therapist Phys I Referrals: Substance Abuse Screening - Community Services/Interventions Substance Use Screening: Initiated - * HEALTHCARE DECISIONS * Living Will: Unknown Durable Power of Exchange Engineer for Health Care: No Directive, No SS Referral [facility] DNR Comfort Care: No Directive, No SS Referral [facility] DNR Comfort Care Arrest: No Directive, No SS Referral Entered by: Marky Olivo on 05/28/25 1525 Report Signed by: Marky Olivo on 05/28/25 1532 <<Signature on File>> <Electronically signed by Marky Olivo> Report Signed by: on PROGRESS NOTE - HOSPITALIST Observed: 12:51 PM Status: F Source: [facility] Medical Records Patient: DIONNA CONCEPCION [address] : 1975 [place], [place] [address] Location: [phone] Unit #: [id number] Progress Note - Hospitalist Rose Sanchez MD [...] abuse and previous CVA, was admitted to [facility] with complaints of excessive fatigue and generalized [...] daily. Continue aspirin Discharge planning to a senior care facility for continued recovery and rehabilitation. PreCert [...] on 05/28/25 0810 Report Signed by: Rose aSnchez MD on 05/28/25 1251 <<Signature on File>> <Electronically signed by Rose Sanchez MD> Report Signed by: on URINE CULTURE Observed: 05/28/2025 1:00 AM Status: F Source: [facility] Order Comment: Urinary Adeola ter Insertion Date 05/24/25 No growth after 2 days. Performed By: #### M120.0000 #### Main Laboratory ([facility]) [address] [place] [address] Regan Sahni MD CASE MANAGEMENT DAILY NOTE Observed: 3:50 PM Status: F Source: [facility] Case Management Patient: DIONNA CONCEPCION [address] : 1975 [place], [place] [address] Location: [facility] [phone] Unit #: [id number] [facility] #: [id number] Case Management Daily Note Yeimy Metcalf RN Service Date: 05/26/25 Case Mgmt Daily Note - Plan of Care Claims Agent Right Of Way Agrees with Attending and Consult Plan: Yes - Patient Preferences AND Goals What is the patient's preference?: Services to be Determined Recommended acute discharge goals: Services to be Determined - Hospital Stay Days Day 1 Comment: 05/11 - Spoke with patient at bedside. Patient has Pavan Huynh. PCP is Pam Camara. appraiser personal property is his father, Dionna. [facility]acy is [facility]. Denies services, DME. He is independent [...] states he has been falling at home. Claims Agent Right Of Way: Ana Snyder, RN Day 2 Comment: 05/12 - Spoke with pt. MRI completed and pending results. Neuro following. PT/OT ordered and recommended IPR. Rehab consulted to review case and waiting on response. Claims Agent Right Of Way: Shelbi Jackson Day 3 Comment: 05/13 Dispo pending medical course. IPR following, c/s placed 05/12. MRI B (-) for acute CVA. WBC 42.9. Lactic 3.7. BC/UA/Sputum Cx. IV Rocephin/IVF. PT/OT. Claims Agent Right Of Way: Jimena Carcamo, RN Day 4 Comment: 05/14: Patient transferred to ICU overnight. Intubated. PEEP 5. FiO2 40%. Propofol. Versed. Levo. Vaso. IVP Solu Cortef QID. Seizure precautions. WBC 36.5. 05/13 blood cultures pending. IV unasyn Q6. ID following. MRCP today. Surgery following. SW d/t alcohol abuse. Needs TBD pending medical medical course. Claims Agent Right Of Way: Sonja Mcmahan Day 5 Comment: 05/15: Patient remains intubated. PEEP 5. FiO2 30%. Versed. Levo. IVP Solu Cortef QID. IV ampicillin Q6. WBC 25.3. 05/14 sputum positive. 05/13 blood cultures negative to date. GI following, ERCP today. Surgery following. ID following. SW following d/t alcohol abuse. Needs TBD pending medical course. Claims Agent Right Of Way: Sonja Mcmahan Day 6 Comment: 05/16: Patient remains intubated. PEEP 5. FiO2 30%. IVP Solu Cortef QID. LR @ 50. ID following. WBC 9.5. IV ampicillin Q6. Hgb 8.8. Needs TBD pending medical course and therapy recs post extubation. Claims Agent Right Of Way: Sonja Mcmahan Day 9 Comment: 05/19 Most recent CIWA 5. Daughter wanting SNF placement per previous CM. PTOT most recent recs IPR. Per nursing documentation, pt not alert and oriented. CM and BATCH AND FURNACE OPERATOR will speak with daugther further about DC [...] daughter with SNF choices, [facility] in [place], [place]. [facility] [place]. [facility]- in [place], [place]. *[facility] attempting to get information from daughter/pt brother for senior living PAUL screening. Claims Agent Right Of Way: Yeimy Metcalf, RN Comment: 05/20 Email this AM from daughter states she is interested in SNF facilities closer to a middle point for her/siser and pt dad/brother so they can all visit pt. Daughter is requesting a family meeting for this wednesday 05/23 at 11am to discuss placement options. Pt will require precert once a facility is obtained. Claims Agent Right Of Way: Yeimy Metcalf, RN Day Comment: 05/21 Psych consult placed per attending. EEG ordered per neurology, possible LP per neurology notes. ID following, Unasyn active until 05/26. Telesitter present in room. Pt remains confused. [employer] attempting agents' records clerk PAUL krunal with family. SNF choices given by daughter to CM and BATCH AND FURNACE OPERATOR in [place] and [place]. BATCH AND FURNACE OPERATOR working on placement. Awaiting psych consult to review further placement barriers. Claims Agent Right Of Way: Yeimy Metcalf, RN 12 Comment: 05/22 SW is working with patients daughter for placement note reads dc planning with pt daughter through email. Pt daughter planning to be at [facility] tomorrow for family meeting. Pt daughter would like to [facility] looking [facility] SN[facility]. Pt evaluated by telepsych and recs for outpt services. SW faxed clinical referral to [facility] in [place] for review. Claims Agent Right Of Way: Beverly Mckeon RN Comment: 05/23 Family meeting at the bedside with attending, Palliative Care DIRECTOR RECREATION, CM and BATCH AND FURNACE OPERATOR. Medical questions answered per attending. CM and BATCH AND FURNACE OPERATOR spoke about DC planning/placement options/barriers. BATCH AND FURNACE OPERATOR sending clinicals to [facility] and [place] area to check on placement avalibility. Per [place], PAUL screen complete and pending number provided to BATCH AND FURNACE OPERATOR. CM and BATCH AND FURNACE OPERATOR attempting skilled nursing placement. Family requesting to speak with progressive care unit registered nurse/administration about concerns with pt care/complaints. CM spoke with AOS[employer]PLC x2 to relay information. Email sent to progressive care unit registered nurse as she is off to follow up with concerns once back in office. Claims Agent Right Of Way: Yeimy Metcalf, RN Comment: 05/26 Telesitter removed by primary RN over the weekend. Telesitter remains out of the room at this time. Per BATCH AND FURNACE OPERATOR, still sending referrals and waiting on accepting facility. Pt also PAUL pending for skilled nursing placement. Claims Agent Right Of Way: Yeimy Metcalf, RN - Respiratory Equipment Does [...] NOTE Observed: 3:50 PM Status: F Source: [facility] Case Management Patient: DIONNA CONCEPCION [address] : 1975 [place], [place] [address] Location: [address] [place] [address] Unit #: [id number] Case Management Daily Note Yeimy Metcalf RN Service Date: 05/23/25 Case Mgmt Daily Note - Plan of Care Claims Agent Right Of Way Agrees with Attending and Consult Plan: Yes - Patient Preferences AND Goals What is the patient's preference?: New SNF Recommended acute discharge goals: New SNF - Hospital Stay Days Day 1 Comment: 05/11 - Spoke with patient at bedside. Patient has Pavan Huynh. PCP is Pam Camara. appraiser personal property is his father, Dionna. [facility]. Denies services, DME. He is independent [...] states he has been falling at home. Claims Agent Right Of Way: Ana Snyder, RN Day 2 Comment: 05/12 - Spoke with pt. MRI completed and pending results. Neuro following. PT/OT ordered and recommended IPR. Rehab consulted to review case and waiting on response. Claims Agent Right Of Way: Shelbi Jackson Day 3 Comment: 05/13 Dispo pending medical course. IPR following, c/s placed 05/12. MRI B (-) for acute CVA. WBC 42.9. Lactic 3.7. BC/UA/Sputum Cx. IV Rocephin/IVF. PT/OT. Claims Agent Right Of Way: Jimena Carcamo, RN Day 4 Comment: 05/14: Patient transferred to ICU overnight. Intubated. PEEP 5. FiO2 40%. Propofol. Versed. Levo. Vaso. IVP Solu Cortef QID. Seizure precautions. WBC 36.5. 7/8 blood cultures pending. IV unasyn Q6. ID following. MRCP today. Surgery following. SW d/t alcohol abuse. Needs TBD pending medical medical course. Claims Agent Right Of Way: Sonja Mcmahan Day 5 Comment: 05/15: Patient remains intubated. PEEP 5. FiO2 30%. Versed. Levo. IVP Solu Cortef QID. IV ampicillin Q6. WBC 25.3. /9 sputum positive. 05/13 blood cultures negative to date. GI following, ERCP today. Surgery following. ID following. SW following d/t alcohol abuse. Needs TBD pending medical course. Claims Agent Right Of Way: Sonja Mcmahan Day 6 Comment: 05/16: Patient remains intubated. PEEP 5. FiO2 30%. IVP Solu Cortef QID. LR @ 50. ID following. WBC 9.5. IV ampicillin Q6. Hgb 8.8. Needs TBD pending medical course and therapy recs post extubation. Claims Agent Right Of Way: Sonja Mcmahan Day 9 Comment: 05/19 Most recent CIWA 5. Daughter wanting SNF placement per previous CM. PTOT most recent recs IPR. Per nursing documentation, pt not alert and oriented. CM and BATCH AND FURNACE OPERATOR will speak with daugther further about DC [...] daughter with SNF choices, [facility] in [place], [place]. [facility]- [place], [place]. [facility] in [place], [place]. *[employer] attempting to get information from daughter/pt brother for manager sql PAUL screening. Claims Agent Right Of Way: Yeimy Metcalf, RN Comment: 05/20 Email this AM from daughter states she is interested in SNF facilities closer to a middle point for her/siser and pt dad/brother so they can all visit pt. Daughter is requesting a family meeting for this wednesday 05/23 at 11am to discuss placement options. Pt will require precert once a facility is obtained. Claims Agent Right Of Way: Yeimy Metcalf, RN Comment: 05/21 Psych consult placed per attending. EEG ordered per neurology, possible LP per neurology notes. ID following, Unasyn active until 05/26. Telesitter present in room. Pt remains confused. [employer] attempting agents' records clerk PAUL krunal with family. SNF choices given by daughter to CM and BATCH AND FURNACE OPERATOR in [place] and [place]. BATCH AND FURNACE OPERATOR working on placement. Awaiting psych consult to review further placement barriers. Claims Agent Right Of Way: Yeimy Metcalf, RN Comment: 05/22 SW is working with patients daughter for placement note reads dc planning with pt daughter through email. Pt daughter planning to be at [facility] tomorrow for family meeting. Pt daughter would like to continue looking for SNF at [facility]. Pt evaluated by telepsych and recs for outpt services. SW faxed clinical referral to [facility] in [place] for review. Claims Agent Right Of Way: Beverly Mckeon, RN Comment: 05/23 Family meeting at the bedside with attending, Palliative Care DIRECTOR RECREATION, CM and BATCH AND FURNACE OPERATOR. Medical questions answered per attending. CM and BATCH AND FURNACE OPERATOR spoke about DC planning/placement options/barriers. BATCH AND FURNACE OPERATOR sending clinicals to [facility] and [facility] to check on placement avalibility. Per [place], PAUL screen complete and pending number provided to BATCH AND FURNACE OPERATOR. CM and BATCH AND FURNACE OPERATOR attempting skilled nursing placement. Family requesting to speak with progressive care unit registered nurse/administration about concerns with pt care/complaints. CM spoke with AOS/PLC x2 to relay information. Email sent to progressive care unit registered nurse as she is off to follow up with concerns once back in office. Claims Agent Right Of Way: Yeimy Metcalf, RN - Respiratory Equipment Does [...] NOTE Observed: 3:50 PM Status: F Source: [facility] Case Management Patient: DIONNA CONCEPCION [address] : 1975 [place], [place] [address] Location: [phone] Unit #: [id number] Case Management Daily Note Yeimy Metcalf RN Service Date: 05/21/25 Case Mgmt Daily Note - Plan of Care Claims Agent Right Of Way Agrees with Attending and Consult Plan: Yes - Hospital Stay Days Day 1 Comment: 05/11 - Spoke with patient at bedside. Patient has Pavan Fierror. PCP is Pam Camara. appraiser personal property is his father, Dionna. Pharmacy is [facility] [...] states he has been falling at home. Claims Agent Right Of Way: Ana Snyder, RN Day 2 Comment: 05/12 - Spoke with pt. MRI completed and pending results. Neuro following. PT/OT ordered and recommended IPR. Rehab consulted to review case and waiting on response. Claims Agent Right Of Way: Shelbi Jackson Day 3 Comment: 05/13 Dispo pending medical course. IPR following, c/s placed 05/12. MRI B (-) for acute CVA. WBC 42.9. Lactic 3.7. BC/UA/Sputum Cx. IV Rocephin/IVF. PT/OT. Claims Agent Right Of Way: Jimena Carcamo RN Day Comment: 05/14: Patient transferred to ICU overnight. Intubated. PEEP 5. FiO2 40%. Propofol. Versed. Levo. Vaso. IVP Solu Cortef QID. Seizure precautions. WBC 36.5. 7/8 blood cultures pending. IV unasyn Q6. ID following. MRCP today. Surgery following. SW d/t alcohol abuse. Needs TBD pending medical medical course. Claims Agent Right Of Way: Sonja Mcmahan Day Comment: 05/15: Patient remains intubated. PEEP 5. FiO2 30%. Versed. Levo. IVP Solu Cortef QID. IV ampicillin Q6. WBC 25.3. 7/9 sputum positive. 05/13 blood cultures negative to date. GI following, ERCP today. Surgery following. ID following. SW following d/t alcohol abuse. Needs TBD pending medical course. Claims Agent Right Of Way: Sonja Mcmahan Day 6 Comment: 05/16: Patient remains intubated. PEEP 5. FiO2 30%. IVP Solu Cortef QID. LR @ 50. ID following. WBC 9.5. IV ampicillin Q6. Hgb 8.8. Needs TBD pending medical course and therapy recs post extubation. Claims Agent Right Of Way: Sonja Mcmahan Day 9 Comment: 05/19 Most recent CIWA 5. Daughter wanting SNF placement per previous CM. PTOT most recent recs IPR. Per nursing documentation, pt not alert and oriented. CM and BATCH AND FURNACE OPERATOR will speak with daugther further about DC [...] daughter with SNF choices, [facility] in [place], [place]. [facility]- [place], [place]. [facility]- in [place], [place]. *[employer] attempting to get information from daughter/pt brother for manager sql PAUL screening. Claims Agent Right Of Way: Yeimy Metcalf, RN Comment: 05/20 Email this AM from daughter states she is interested in SNF facilities closer to a middle point for her/siser and pt dad/brother so they can all visit pt. Daughter is requesting a family meeting for this wednesday 05/23 at 11am to discuss placement options. Pt will require precert once a facility is obtained. Claims Agent Right Of Way: Yeimy Metcalf, RN Day Comment: 05/21 Psych consult placed per attending. EEG ordered per neurology, possible LP per neurology notes. ID following, Unasyn active until 05/26. Telesitter present in room. Pt remains confused. [employer] attempting agents' records clerk PAUL krunal with family. SNF choices given by daughter to CM and BATCH AND FURNACE OPERATOR in [facility]. BATCH AND FURNACE OPERATOR working on placement. Awaiting psych consult to review further placement barriers. Claims Agent Right Of Way: Yeimy Metcalf, RN - Respiratory Equipment Does [...] Signed by: Yeimy Metcalf RN on 05/27/25 9630 <<Signature on File>> <Electronically signed by Yeimy Metcalf RN> Co-Signed by: on CASE MANAGEMENT DAILY NOTE Observed: 3:49 PM Status: F Source: [facility] Case Management Patient: DIONNA CONCEPCION [address] : 1975 [place], [place] [address] Location: [address] [place] [address] [facility] #[facility] [id number] [id number] Case Management Daily Note Yeimy Metcalf RN Service Date: 05/27/25 Case Mgmt Daily Note - Plan of Care Claims Agent Right Of Way Agrees with Attending and Consult Plan: Yes - Patient Preferences AND Goals What is the patient's preference?: Services to be Determined Recommended acute discharge goals: Services to be Determined - Hospital Stay Days Day 1 Comment: 05/11 - Spoke with patient at bedside. Patient has Pavan Huynh. PCP is Pam Camara. appraiser personal property is his father, Dionna. [facility]acy [facility]. Denies services, DME. He is independent [...] states he has been falling at home. Claims Agent Right Of Way: Ana Snyder, RN Day 2 Comment: 05/12 - Spoke with pt. MRI completed and pending results. Neuro following. PT/OT ordered and recommended IPR. Rehab consulted to review case and waiting on response. Claims Agent Right Of Way: Shelbi Jackson Day 3 Comment: 05/13 Dispo pending medical course. IPR following, c/s placed 05/12. MRI B (-) for acute CVA. WBC 42.9. Lactic 3.7. BC/UA/Sputum Cx. IV Rocephin/IVF. PT/OT. Claims Agent Right Of Way: Jimena Carcamo, RN Day 4 Comment: 05/14: Patient transferred to ICU overnight. Intubated. PEEP 5. FiO2 40%. Propofol. Versed. Levo. Vaso. IVP Solu Cortef QID. Seizure precautions. WBC 36.5. 05/13 blood cultures pending. IV unasyn Q6. ID following. MRCP today. Surgery following. SW d/t alcohol abuse. Needs TBD pending medical medical course. Claims Agent Right Of Way: Sonja Mcmahan Day 5 Comment: 05/15: Patient remains intubated. PEEP 5. FiO2 30%. Versed. Levo. IVP Solu Cortef QID. IV ampicillin Q6. WBC 25.3. 05/14 sputum positive. 05/13 blood cultures negative to date. GI following, ERCP today. Surgery following. ID following. SW following d/t alcohol abuse. Needs TBD pending medical course. Claims Agent Right Of Way: Sonja Mcmahan Day 6 Comment: 05/16: Patient remains intubated. PEEP 5. FiO2 30%. IVP Solu Cortef QID. LR @ 50. ID following. WBC 9.5. IV ampicillin Q6. Hgb 8.8. Needs TBD pending medical course and therapy recs post extubation. Claims Agent Right Of Way: Sonja Mcmahan Day 9 Comment: 05/19 Most recent CIWA 5. Daughter wanting SNF placement per previous CM. PTOT most recent recs IPR. Per nursing documentation, pt not alert and oriented. CM and BATCH AND FURNACE OPERATOR will speak with daugther further about DC [...] daughter with SNF choices, [facility] in [place], [place]. [facility]- [place], [place]. [facility] in [place], [place]. *[employer] attempting to get information from daughter/pt brother for senior living PAUL screening. Claims Agent Right Of Way: Yeimy Metcalf, RN Comment: 05/20 Email this AM from daughter states she is interested in SNF facilities closer to a middle point for her/siser and pt dad/brother so they can all visit pt. Daughter is requesting a family meeting for this wednesday 05/23 at 11am to discuss placement options. Pt will require precert once a facility is obtained. Claims Agent Right Of Way: Yeimy Metcalf, RN Comment: 05/21 Psych consult placed per attending. EEG ordered per neurology, possible LP per neurology notes. ID following, Unasyn active until 05/26. Telesitter present in room. Pt remains confused. [employer] attempting agents' records clerk PAUL krunal with family. SNF choices given by daughter to CM and BATCH AND FURNACE OPERATOR in [place] and [place]. BATCH AND FURNACE OPERATOR working on placement. Awaiting psych consult to review further placement barriers. Claims Agent Right Of Way: Yeimy Metcalf, RN Comment: 05/22 SW is working with patients daughter for placement note reads dc planning with pt daughter through email. Pt daughter planning to be at [facility] tomorrow for family meeting. Pt daughter would like to continue looking for SNF at [facility]. Pt evaluated by telepsych and recs for outpt services. KAYLENE faxed clinical referral to [facility] in [place] for review. Claims Agent Right Of Way: Beverly Mckeon, RN Comment: 05/23 Family meeting at the bedside with attending, Palliative Care DIRECTOR RECREATION, CM and BATCH AND FURNACE OPERATOR. Medical questions answered per attending. CM and BATCH AND FURNACE OPERATOR spoke about DC planning/placement options/barriers. BATCH AND FURNACE OPERATOR sending clinicals to [facility] and [facility] to check on placement avalibility. [facility], [facility]UL screen complete and pending number provided to BATCH AND FURNACE OPERATOR. CM and BATCH AND FURNACE OPERATOR attempting agents' records clerk placement. Family requesting to speak with progressive care unit registered nurse/administration about concerns with pt care/complaints. CM spoke with AOS/PLC x2 to relay information. Email sent to progressive care unit registered nurse as she is off to follow up with concerns once back in office. Claims Agent Right Of Way: Yeimy Metcalf, RN Comment: 05/26 Telesitter removed by primary RN over the weekend. Telesitter remains out of the room at this time. Per BATCH AND FURNACE OPERATOR, still sending referrals and waiting on accepting facility. Pt also PAUL pending for agents' records clerk placement. Claims Agent Right Of Way: Yeimy Metcalf, RN Comment: 05/27 Per BATCH AND FURNACE OPERATOR, facilities requested by daughter in [place] are continuing to review. Precert to start once accepted. Claims Agent Right Of Way: Yeimy Metcalf, RN - Respiratory Equipment Does [...] HOSPITALIST Observed: 3:42 PM Status: F Source: [facility] Medical Records Patient: DINONA CONCEPCION [address] : 1975 [place], [place] [address] Location: [phone] Unit #: [id number] Progress Note - Hospitalist Rose Sanchez MD Service Dt/Tm: 05/27/25 0955 ADDENDUM: DC Freeman catheter Addendum Entered by: Rose Sanchez MD on 05/27/25 at 1542 Addendum Signed by: Rose Sanchez MD on 05/27/25 1544 <<Signature on File>> <Electronically signed by Rose [...] abuse and previous CVA, was admitted to [facility] with complaints of excessive fatigue and generalized [...] pressure better controlled Discharge planning to a senior care facility for continued recovery and rehabilitation. PreCert needed DVT prophylaxis: Lovenox Current Code Status AND Diet: 05/11/25 18:30 Code Status Routine Resuscitation Status: Full Code Code Status Order Placed: Code Status Ordered 05/11/25 at 1830 05/17/25 10:31 [facility] Diet Texture: Regular Fluid Restrictions?: No Discussed [...] Entered by: Rose Sanchez MD on 05/27/25 0963 Report Signed by: Rose Sanchez MD on 05/27/25 1332 <<Signature on File>> <Electronically signed by Rose Sanchez MD> Report Signed by: on CBC WITHOUT DIFFERENTIAL Collected: 4:56 AM Status: F Source: [facility] TYPE CODE TESTS RESULT OUT OF [...] Performed By: #### L100.0050 #### Main Laboratory ([facility]) [address] [place] [address] Regan Sahni MD RENAL FUNCTION PANEL Collected: 05/27/2025 4:56 AM S tatus: F Source: [facility] TYPE CODE TESTS RESULT OUT OF [...] eGFR equation used can be found at https://www.kidney.org/uqhq-teqks-tssowway. AGE(years) AVERAGE GFR 50-59 93 ml/min/1.73 square meters Note:This result is normalized to 1.73 square meter body surface area. Height and weight are not factored. LAB L400.2100 Calcium 9.30 Normal 8.8-10.5 mg/dL LAB L400.2120 Albumin 3.2 Low 3.5-5.0 g/dL LAB L400.2200 Phosphorus 6.4 High 2.4-4.7 mg/dL Result Comment: Delta: 5.1 o n 05/26/25 Performed By: #### L400.0410 #### Main Laboratory ([facility]) [address] [place] [address] Regan Sahni MD PROGRESS NOTE NEUROLOGY Observed: 2024 6:28 PM Status: F Source: [facility] Medical Records Patient: DIONNA CONCEPCION [address] : 1975 [place], [place] [address] Location: [phone] Unit #: [id number] [facility]: [id number] Progress Note Neurology Bradley Blanchard MD Service [...] Inpatient follow-up with [facility] physician please call [facility] at . As we are not an outpatient service for any post hospital discharge needs please contact the hospital for assistance. If you have any questions for the [facility] physicians or need to reconsult for clinical or diagnostic changes please contact us via [facility] at (2) Sepsis: Status: Resolved Qualifiers: Sepsis [...] Observed: 025 3:15 PM Status: F Source: [facility] Agency Cashier Patient: VOJTUSH,IDONNA J [address] : 1975 [place], [place] [address] Location: [phone] Unit #: [id number] Social Work Daily Note Marky Olivo Service Date: 05/26/25 KAYLENE Daily Note - * Psychosocial Assessment * I have reviewed nursing and case management psychosocial information.: Yes - * Hospital Stay Days * Day 1 Note: 05/14/2025: SW c/s for Substance Abuse Screening. [place] Ambetter. CIWA. +tox for cannabinoids on admission. Hx of alcohol abuse. Enecphalopathy. Pt intubated overnight. Agency Cashier to follow peripherally to discuss with pt when medically appropriate. Therapist Phys: Yeimy Shah, INTERNET SALES DIRECTOR, PSYCH SOCIAL WORKER Day 2 Note: 05/15/2025: SW following for Substance Abuse Screening. Caldwell Ambetter. CIWA. +tox for cannabinoids on admission. Hx of alcohol abuse- Wernickes Enecphalopathy. Pt remains intubated this date. KAYLENE updated by nursing staff that the pt's family is requesting pt d/c to a SNF in the [place], [place] area when medically ready for d/c. KAYLENE called and discussed this with pt's daughter, Maria Fernanda. Maria Fernanda reports most of the family lives between [place] and [place], so [place] would be a good middle location. KAYLENE [...] it will be a short term or agents' records clerk placement. Maria Fernanda reports she has not talked with her father in 3 years. Maria Fernanda is unaware of pt's finances and does not know of any POA paperwork that the pt has ever completed. Maria Fernanda stated that the pt is not legally to anyone. Maria Fernanda reports the pt has three living children: Maria Fernanda Glynn PH: [phone], Beverly Concepcion PH: [phone] AND Dionna Jamey PH: [phone]. Maria Fernanda reports Dionna will likely not want to participate in any decision making for the pt. KAYLENE explained that in [place] if there is no POA/Guardian and if pt is not legally , that any decisions will need to be a consensus between all living children. Maria Fernanda voiced understanding. Maria Fernanda would like to review a list of SNFs in [place], [place] to begin reviewing. Maria Fernanda reports her address is [address] [place] [id number]. A list of SNFs within 30 miles of Maria Fernanda's address with quality scores emailed to Maria Fernanda at [email or web address]. KAYLENE requested Maria Fernanda to provide a list of 5-10 choices as pt may be a difficult placement d/t history of alcohol abuse and insurance. D/c planning needs pending medical course. SW to continue following. Therapist Phys: Yeimy Shah, DENISSE, KARLA Day 3 Note: 05/16/2025: SW following for Substance Abuse Screening. Pavan Huynh. UZIEL. +tox for cannabinoids on admission. Hx of alcohol abuse- Wernickes Enecphalopathy. Pt remains intubated this date. D/c planning needs pending medical course. SW to continue following. Therapist Phys: Yeimy Shah, DENISSE, KARLA Day 6 Note: 05-19-25 KAYLENE following for SNF/dc planning. JIMBO Crooks emailed pt daughter list of SNF options in [place]. DENISSE Crooks sent referral to [facility] for pt to be screened for PAUL benefit. Pt daughter gave choices of SNFs. Kaylene spoke with admissions of [facility] in [place] and faxed clinical referral to facility. Therapist Phys: Marky Olivo Day 7 Note: 05-21-25 KAYLENE following for dc planning. DC plan curently pending. SNF referral sent to [facility] in [place] pt first choice and facility unable to accept. Pt daughter possibly wanting SNF in between [place] and [place]. Psych consult ordered. SW will continue to follow. Therapist Phys: Marky Olivo day 8 Note: 05-22-25 KAYLENE communicated dc planning with pt daughter through email. Pt daughter planning to be at [facility] tomorrow for family meeting. Pt daughter would like to continue looking fo rSNF at dc. Pt evaluated by telepsych and recs for outpt services. KAYLENE faxed clinical referral to [facility] in [place] for review. Therapist Phys: Marky Olivo day 9 Note: 05-23-25 SW and CM spoke with pt and family at bedside along with pt medical provider. SW and CM discussed LT care options at dc. Pt family continues to be agreeable to SNF. [place] [facility] [place]. No preferenc eof facility just something [place] [facility] for all family. KAYLENE sent referral to [facility] in [place] waiting on facility to review. Clinical referral also faxed to [facility] in [place] for review. Per [facility] application was completed and submitted on 05-22. Therapist Phys: Marky Olivo 12 Note: 05-26-25 KAYLENE following for SNF placement. KAYLENE sent referrals to [facility] and [facility] in [place]. Per admissions at both facilities they have minimal LT beds available and will review pt referral. KAYLENE emailed pt daughter to update her of dc planning. KAYLENE continuing to follow. Therapist Phys: Marky Olivo - * Information * Mental Status/Mood: Confused - * Requested Intvs/Referrals * Therapist Phys I Referrals: Substance Abuse Screening - Community Services/Interventions Substance Use Screening: Initiated - * HEALTHCARE DECISIONS * Living Will: Unknown Durable Power of Exchange Engineer for Health Care: No Directive, No SS Referral [facility] DNR Comfort Care: No Directive, No SS Referral [facility] DNR Comfort Care Arrest: No Directive, No SS Referral Entered by: Marky Olivo on 05/26/25 1509 Report Signed by: Marky Olivo on 05/26/25 1515 <<Signature on File>> <Electronically signed by Marky Olivo> Report Signed by: on PROGRESS NOTE - HOSPITALIST Observed: 3:08 PM Status: F Source: [facility] Medical Records Patient: DIONNA CONCEPCION [address] : 1975 [place], [place] [address] Location: [phone] Unit #: [id number] Progress Note - Hospitalist Rose Sanchez MD [...] abuse and previous CVA, was admitted to [facility] with complaints of excessive fatigue and generalized [...] and monitor vitals Discharge planning to a senior care facility for continued recovery and rehabilitation. DVT [...] Entered by: Rose Sanchez MD on 05/26/25 0863 Report Signed by: Rose Sanchez MD on 05/26/25 1508 <<Signature on File>> <Electronically signed by Rose Sanchez MD> Report Signed by: on CBC WITHOUT DIFFERENTIAL Collected: 5:49 AM Status: F Source: [facility] TYPE CODE TESTS RESULT OUT OF [...] Performed By: #### L100.0050 #### Main Laboratory ([facility]) [address] [place] [address] Regan Sahni MD RENAL FUNCTION PANEL Collected: 05/26/2025 5:49 AM S tatus: F Source: [facility] TYPE CODE TESTS RESULT OUT OF [...] eGFR equation used can be found at https://www.kidney.org/bqnr-ymxfa-uqiikhab. AGE(years) AVERAGE GFR 50-59 93 ml/min/1.73 square meters Note:This result is normalized to 1.73 square meter body surface area. Height and weight are not factored. LAB L400.2100 Calcium 9.50 Normal 8.8-10.5 mg/dL LAB L400.2120 Albumin 3.3 Low 3.5-5.0 g/dL LAB L400.2200 Phosphorus 5.1 High 2.4-4.7 mg/dL Performed By: #### L400.0410 #### Main Laboratory ([facility]) [address] [place] [address] Regan Sahni MD PROGRESS NOTE NEUROLOGY Observed: 2024 4:23 PM Status: F Source: [facility] Medical Records Patient: DIONNA CONCEPCION [address] 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 No mass, hemorrhage, or acute territorial [...] Inpatient follow-up with [facility] physician please call [facility] at . As we are not an outpatient service for any post hospital discharge needs please contact the hospital for assistance. If you have any questions for the [facility] physicians or need to reconsult for clinical or diagnostic changes please contact us via [facility] at [facility] [employer] Data: Last Vital [...] HOSPITALIST Observed: 12:50 PM Status: F Source: [facility] Medical Records Patient: DIONNA CONCEPCION [address] : 1975 [place], [place] [address] Location: [phone] Unit #: [id number] Progress Note - Hospitalist Rose Sanchez MD [...] abuse and previous CVA, was admitted to [facility] with complaints of excessive fatigue and generalized [...] month and year Discharge planning to a senior care facility for continued recovery and rehabilitation. DVT [...] Entered by: Rose Sanchez MD on 05/25/25 7082 Report Signed by: Rose Sanchez MD on 05/25/25 1250 <<Signature on File>> <Electronically signed by Rose Sanchez MD> Report Signed by: on PROGRESS NOTE - HOSPITALIST Observed: 5:22 PM Status: F Source: [facility] Medical Records Patient: DIONNA CONCEPCION [address] : 1975 [place], [place] [address] Location: [facility] [phone] Unit #: [id number] Progress Note - Hospitalist Rose Sanchez MD [...] abuse and previous CVA, was admitted to [facility] with complaints of excessive fatigue and generalized [...] with the patient. Discharge planning to a senior care facility for continued recovery and rehabilitation. DVT [...] Intake Total 1380.93 511.07 120 Output Total 884 906 0593 Balance 505.93 -188.93 -1180 Admitting (IV Pump) [...] Collected: 05/24/20 4:58 PM Status: F Source: [facility] Order Comment: Send out test message Close TYPE CODE TESTS RESULT OUT OF RANGE REFERENCE UNITS LAB L925.3030 Thiamin 359 High 70-180 nmol/L Result Comment: -------ADDITIONAL INFORMATION This test was developed and its performance characteristics determined by [facility] in a manner consistent with CLIA requirements. This test has not been cleared or approved by the U.S. Food and Drug Administration. Test Performed by: [facility] [address] [place] [address] Mutual Fund Analyst: Patria Dueñas Ph.D.; CLIA# [id number] Performed By: #### L925.3020 #### [facility] [address] [place] [address] PROGRESS NOTE NEUROLOGY Observed: 2024 4:06 PM Status: F Source: [facility] Medical Records Patient: DIONNA CONCEPCION [address] : 1975 [place], [place] [address] Location: [address] [place] [address] Unit #: [id number] Progress Note Neurology Zack Valladares MD Service [...] 05/21: alert, stated his name , in [facility], year 2053, staed name of president, follows commands appropriately, nihss- 2, overall doing much better today 05/22: is irritable, using inappropriate language, non compliant , hence neuro exam is limited 05/23:has right nasal bleed, unknown reason Alert,stated his name, in hospital, year 2053, marilu, nihss-3 05/24:Alert, stated his name, stated the [facility], stated 53 but year 2024, peytonsunil, no [...] Inpatient follow-up with [facility] physician please call [facility] at . As we are not an outpatient service for any post hospital discharge needs please contact the hospital for assistance. If you have any questions for the [facility] physicians or need to reconsult for clinical or diagnostic changes please contact us via [facility] at Data: Last Vital Signs Temp Pulse [...] Entered by: Zack Valladares MD on 05/24/25 2898 Report Signed by: Zack Valladares MD on 05/24/25 7006 <<Signature on File>> <Electronically signed by Zack Valladares MD> Report Signed by: on BASIC METABOLIC,NON-FASTING Collected: 05/24/2025 6:35 AM Status: F Source: [facility] TYPE CODE TESTS RESULT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 we are not an outpatient service for any post hospital discharge needs please contact the hospital for assistance. If you have any questions for the [facility] physicians or need to reconsult for clinical or diagnostic changes please contact us via [facility] at Data: Last Vital Signs Temp Pulse [...] Observed: 2024 4:56 PM Status: F Source: [facility] Radiology Department Patient: DIONNA CONCEPCION [address]. : 1975 Sex: Mirta [place], [place] [address] Location: [phone] Unit #: [id number] [id number] Ordering Phys: Zack Valladares MD Exam Date: [...] EDT , cc: Tay Camara MD; Zack Valladares MD Dictated by: Oh Jeffery MD on 05/24/2513 Transcribed by: Oh Jeffery MD on 05/24/2513 Report Signed by: Oh Jeffery MD on 05/24/2513 CASE MANAGEMENT DAILY NOTE Observed: 3:33 PM Status: F Source: [facility] Case Management Patient: DIONNA [address]. : 1975 [place], [place] [address] Location: [phone] Unit #: [id number] Case Management Daily Note Yeimy Metcalf RN Service Date: 05/20/25 Case Mgmt Daily Note - Plan of Care Claims Agent Right Of Way Agrees with Attending and Consult Plan: Yes - Patient Preferences AND Goals What is the patient's preference?: Services to be Determined Recommended acute discharge goals: Services to be Determined - Hospital Stay Days Day 1 Comment: 05/11 - Spoke with patient at bedside. Patient has Caldwell Srir. PCP is Pam Camara. appraiser personal property is his father, Dionna. [facility]. Denies services, DME. He is independent [...] states he has been falling at home. Claims Agent Right Of Way: Ana Snyder, RN Day 2 Comment: 05/12 - Spoke with pt. MRI completed and pending results. Neuro following. PT/OT ordered and recommended IPR. Rehab consulted to review case and waiting on response. Claims Agent Right Of Way: Shelbi Jackson Day 3 Comment: 05/13 Dispo pending medical course. IPR following, c/s placed 05/12. MRI B (-) for acute CVA. WBC 42.9. Lactic 3.7. BC/UA/Sputum Cx. IV Rocephin/IVF. PT/OT. Claims Agent Right Of Way: Jimena Carcamo RN Day 4 Comment: 05/14: Patient transferred to ICU overnight. Intubated. PEEP 5. FiO2 40%. Propofol. Versed. Levo. Vaso. IVP Solu Cortef QID. Seizure precautions. WBC 36.5. 7/8 blood cultures pending. IV unasyn Q6. ID following. MRCP today. Surgery following. SW d/t alcohol abuse. Needs TBD pending medical medical course. Claims Agent Right Of Way: Sonja Mcmahan Day 5 Comment: 05/15: Patient remains intubated. PEEP 5. FiO2 30%. Versed. Levo. IVP Solu Cortef QID. IV ampicillin Q6. WBC 25.3. 7/9 sputum positive. /8 blood cultures negative to date. GI following, ERCP today. Surgery following. ID following. SW following d/t alcohol abuse. Needs TBD pending medical course. Claims Agent Right Of Way: Sonja Mcmahan Day 6 Comment: 05/16: Patient remains intubated. PEEP 5. FiO2 30%. IVP Solu Anshulef QID. LR @ 50. ID following. WBC 9.5. IV ampicillin Q6. Hgb 8.8. Needs TBD pending medical course and therapy recs post extubation. Claims Agent Right Of Way: Sonja Mcmahan Day 9 Comment: 05/19 Most recent CIWA 5. Daughter wanting SNF placement per previous CM. PTOT most recent recs IPR. Per nursing documentation, pt not alert and oriented. CM and BATCH AND FURNACE OPERATOR will speak with daugther further about DC [...] daughter with SNF choices, [facility] in [place], [place]. [facility] [place], [place]. [facility]- in [place], [place]. *Luz Mariae attempting to get information from daughter/pt brother for manager sql PAUL screening. Claims Agent Right Of Way: Yeimy Metcalf, RN Day 10 Comment: 05/20 Email this AM from daughter states she is interested in SNF facilities closer to a middle point for her/siser and pt dad/brother so they can all visit pt. Daughter is requesting a family meeting for this wednesday 05/23 at 11am to discuss placement options. Pt will require precert once a facility is obtained. Claims Agent Right Of Way: Yeimy Metcalf, RN - Respiratory Equipment Does [...] NOTE Observed: 3:33 PM Status: F Source: [facility] Case Management Patient: DIONNA CONCEPCION [address] : 1975 [place], [place] [address] Location: [address] [place] [address] Unit #: [id number] [facility] [id number] Case Management Daily Note Yeimy Metcalf RN Service Date: 05/19/25 Case Mgmt Daily Note - Plan of Care Claims Agent Right Of Way Agrees with Attending and Consult Plan: Yes - Patient Preferences AND Goals What is the patient's preference?: Services to be Determined Recommended acute discharge goals: Services to be Determined - Hospital Stay Days Day 1 Comment: 05/11 - Spoke with patient at bedside. Patient has Pavan Huynh. PCP is Pam Camara. appraiser personal property is his father, Dionna. Pharmacy is [facility]. Denies services, DME. He is independent of [...] states he has been falling at home. Claims Agent Right Of Way: Ana Snyder, RN Day 2 Comment: 05/12 - Spoke with pt. MRI completed and pending results. Neuro following. PT/OT ordered and recommended IPR. Rehab consulted to review case and waiting on response. Claims Agent Right Of Way: Shelbi Jackson Day 3 Comment: 05/13 Dispo pending medical course. IPR following, c/s placed 05/12. MRI B (-) for acute CVA. WBC 42.9. Lactic 3.7. BC/UA/Sputum Cx. IV Rocephin/IVF. PT/OT. Claims Agent Right Of Way: Jimena Carcamo, RN Day 4 Comment: 05/14: Patient transferred to ICU overnight. Intubated. PEEP 5. FiO2 40%. Propofol. Versed. Levo. Vaso. IVP Solu Cortef QID. Seizure precautions. WBC 36.5. 8 blood cultures pending. IV unasyn Q6. ID following. MRCP today. Surgery following. SW d/t alcohol abuse. Needs TBD pending medical medical course. Claims Agent Right Of Way: Sonja Mcmahan Day 5 Comment: 05/15: Patient remains intubated. PEEP 5. FiO2 30%. Versed. Levo. IVP Solu Cortef QID. IV ampicillin Q6. WBC 25.3. 05/14 sputum positive. 05/13 blood cultures negative to date. GI following, ERCP today. Surgery following. ID following. SW following d/t alcohol abuse. Needs TBD pending medical course. Claims Agent Right Of Way: Sonja Mcmahan Day 6 Comment: 05/16: Patient remains intubated. PEEP 5. FiO2 30%. IVP Solu Cortef QID. LR @ 50. ID following. WBC 9.5. IV ampicillin Q6. Hgb 8.8. Needs TBD pending medical course and therapy recs post extubation. Claims Agent Right Of Way: Sonja Mcmahan Day 9 Comment: 05/19 Most recent CIWA 5. Daughter wanting SNF placement per previous CM. PTOT most recent recs IPR. Per nursing documentation, pt not alert and oriented. CM and BATCH AND FURNACE OPERATOR will speak with daugther further about DC [...] daughter with SNF choices, [facility] in [place], [place]. [facility] [place]. [facility] in [place], [place]. *[employer] attempting to get information from daughter/pt brother for manager sql PAUL screening. Claims Agent Right Of Way: Yeimy Metcalf, RN - Respiratory Equipment Does [...] NOTE Observed: 3:33 PM Status: F Source: [facility] Case Management Patient: DIONNA CONCEPCION [address] : 1975 [place], [place] [address] Location: [phone] Unit #: [id number] [facility] #: [id number] Case Management Daily Note Yeimy Metcalf RN Service Date: 05/21/25 Case Mgmt Daily Note - Plan of Care Claims Agent Right Of Way Agrees with Attending and Consult Plan: Yes - Patient Preferences AND Goals What is the patient's preference?: Services to be Determined Recommended acute discharge goals: Services to be Determined - Hospital Stay Days Day 1 Comment: 05/11 - Spoke with patient at bedside. Patient has Pavan Huynh. PCP is Pam Camara. appraiser personal property is his father, Dionna. Pharmacy is [facility] on [address] Denies services, ROSELIA. He is independent [...] states he has been falling at home. Claims Agent Right Of Way: Ana Snyder, RN Day 2 Comment: 05/12 - Spoke with pt. MRI completed and pending results. Neuro following. PT/OT ordered and recommended IPR. Rehab consulted to review case and waiting on response. Claims Agent Right Of Way: Shelbi Jackson Day 3 Comment: 05/13 Dispo pending medical course. IPR following, c/s placed 05/12. MRI B (-) for acute CVA. WBC 42.9. Lactic 3.7. BC/UA/Sputum Cx. IV Rocephin/IVF. PT/OT. Claims Agent Right Of Way: Jimena Carcamo, RN Day 4 Comment: 05/14: Patient transferred to ICU overnight. Intubated. PEEP 5. FiO2 40%. Propofol. Versed. Levo. Vaso. IVP Solu Cortef QID. Seizure precautions. WBC 36.5. 7/8 blood cultures pending. IV unasyn Q6. ID following. MRCP today. Surgery following. SW d/t alcohol abuse. Needs TBD pending medical medical course. Claims Agent Right Of Way: Sonja Mcmahan Day 5 Comment: 05/15: Patient remains intubated. PEEP 5. FiO2 30%. Versed. Levo. IVP Solu Cortef QID. IV ampicillin Q6. WBC 25.3. 7/9 sputum positive. /8 blood cultures negative to date. GI following, ERCP today. Surgery following. ID following. SW following d/t alcohol abuse. Needs TBD pending medical course. Claims Agent Right Of Way: Sonja Mcmahan Day 6 Comment: 05/16: Patient remains intubated. PEEP 5. FiO2 30%. IVP Solu Cortef QID. LR @ 50. ID following. WBC 9.5. IV ampicillin Q6. Hgb 8.8. Needs TBD pending medical course and therapy recs post extubation. Claims Agent Right Of Way: Sonja Mcmahan Day 9 Comment: 05/19 Most recent CIWA 5. Daughter wanting SNF placement per previous CM. PTOT most recent recs IPR. Per nursing documentation, pt not alert and oriented. CM and BATCH AND FURNACE OPERATOR will speak with daugther further about DC [...] *email returned from daughter with SNF choices, [facility]- in [place], [place]. [facility] [place], [place]. [facility]- in [place], [place]. *[employer] attempting to get information from daughter/pt brother for manager sql PAUL screening. Claims Agent Right Of Way: Yeimy Metcalf, RN Comment: 05/20 Email this AM from daughter states she is interested in SNF facilities closer to a middle point for her/siser and pt dad/brother so they can all visit pt. Daughter is requesting a family meeting for this wednesday 05/23 at 11am to discuss placement options. Pt will require precert once a facility is obtained. Claims Agent Right Of Way: Yeimy Metcalf, RN Day Comment: 05/21 Psych consult placed per attending. Telesitter present in room. Pt remains confused. [employer] attempting skilled nursing PAUL krunal with family. SNF choices given by daughter to CM and BATCH AND FURNACE OPERATOR. BATCH AND FURNACE OPERATOR working on placement. Claims Agent Right Of Way: Yeimy Metcalf, RN - Respiratory Equipment Does [...] Observed: 025 3:05 PM Status: F Source: [facility] Agency Cashier Patient: DIONNA CONCEPCION [address] : 1975 [place], [place] [address] Location: [address] [place] [address] Unit #: [id number] Social Work Daily Note Marky Olivo Service Date: 05/21/25 KAYLENE Daily Note - * Psychosocial Assessment * I have reviewed nursing and case management psychosocial information.: Yes - * Hospital Stay Days * Day 1 Note: 05/14/2025: SW c/s for Substance Abuse Screening. Pavan ROLDANWA. +tox for cannabinoids on admission. Hx of alcohol abuse. Enecphalopathy. Pt intubated overnight. Agency Cashier to follow peripherally to discuss with pt when medically appropriate. Therapist Phys: Yeimy Shah, INTERNET SALES DIRECTOR, PSYCH SOCIAL WORKER Day 2 Note: 05/15/2025: KAYLENE following for Substance Abuse Screening. Caldwell Ambetter. CIWA. +tox for cannabinoids on admission. Hx of alcohol abuse- Wernickes Enecphalopathy. Pt remains intubated this date. KAYLENE updated by nursing staff that the pt's family is requesting pt d/c to a SNF in the [place], [place] area when medically ready for d/c. KAYLENE called and discussed this with pt's daughter, Mraia Fernanda. Maria Fernanda reports most of the family lives between [place] and [place], so [place] would be a good middle location. KAYLENE [...] it will be a short term or skilled nursing placement. Maria Fernanda reports she has not talked with her father in 3 years. Maria Fernanda is unaware of pt's finances and does not know of any POA paperwork that the pt has ever completed. Maria Fernanda stated that the pt is not legally to anyone. Maria Fernanda reports the pt has three living children: Maria Fernanda Glynn PH: [phone], Beverly Jamey PH: [phone] AND Dionna Jamey PH: [phone]. Maria Fernanda reports Dionna will likely not want to participate in any decision making for the pt. KAYLENE explained that in [place] if there is no POA/Guardian and if pt is not legally , that any decisions will need to be a consensus between all living children. Maria Fernanda voiced understanding. Maria Fernanda would like to review a list of SNFs in [place], [place] to begin reviewing. Maria Fernanda reports her [place] is [address] [place] [address]. A list of SNFs within 30 miles of Maria Fernanda's address with quality scores emailed to Maria Fernanda at [email or web address]. KAYLENE requested Maria Fernanda to provide a list of 5-10 choices as pt may be a difficult placement d/t history of alcohol abuse and insurance. D/c planning needs pending medical course. SW to continue following. Therapist Phys: Yeimy Shah, DENISSE, PSYCH SOCIAL WORKER Day 3 Note: 05/16/2025: SW following for Substance Abuse Screening. Pavan TRIPLETT. +tox for cannabinoids on admission. Hx of alcohol abuse- Wernickes Enecphalopathy. Pt remains intubated this date. D/c planning needs pending medical course. SW to continue following. Therapist Phys: Yeimy Shah, DENISSE, PSYCH SOCIAL WORKER Day 6 Note: 05-19-25 SW following for SNF/dc planning. JIMBO Crooks emailed pt daughter list of SNF options in [place]. INTERNET SALES DIRECTOR Yeimy sent referral to [facility] for pt to be screened for PAUL benefit. Pt daughter gave choices of SNFs. Sw spoke with admissions of [facility] in [place] and faxed clinical referral to facility. Therapist Phys: Marky Olivo Day 7 Note: 05-21-25 SW following for dc planning. DC plan curently pending. SNF referral sent to [facility] in [place] pt first choice and facility unable to accept. Pt daughter possibly wanting SNF in between [place] and [place]. Psych consult ordered. SW will continue to follow. Therapist Phys: Marky Olivo - * Requested Intvs/Referrals * Therapist Phys I Referrals: Substance Abuse Screening - Community Services/Interventions Substance Use Screening: Initiated - * HEALTHCARE DECISIONS * Living Will: Unknown Durable Power of Exchange Engineer for Health Care: No Directive, No SS Referral [facility] DNR Comfort Care: No Directive, No SS Referral [facility] DNR Comfort Care Arrest: No Directive, No SS Referral Entered by: Marky Olivo on 05/21/25 1503 Report Signed by: Marky Olivo on 05/21/25 1505 <<Signature on File>> <Electronically signed by Marky Olivo> Report Signed by: on PROGRESS NOTE - HOSPITALIST Observed: 1:33 PM Status: F Source: [facility] Medical Records Patient: DIONNA CONCEPCION [address] : 1975 [place], [place] [address] Location: [facility] [phone] Unit #: [id number] Progress Note - Hospitalist Yanely Lopez ([facility]) TRUCKING CONTRACTOR Service Dt/Tm: 05/21/25 0835 Assessment/Plan Assessment/Plan (1) [...] to name, place, month. Sitting in recliner. Revenue Agent consult for nutritional assessment and oral supplementation. [...] continue current treatment Entered by: Yanely Lopez ([facility])EMMA on 05/21/25 0877 Report Signed by: Yanely Ivan ([facility]) John CARTER on 05/21/25 1333 <<Signature on File>> <Electronically signed by Yanely Lopez ([facility]) TRUCKING CONTRACTOR> Report Signed by: on MODIFIED BARIUM SWALLOW REPORT Observed: 05/21/2025 9:21 AM Status: F Source: [facility] Speech Therapy Department Patient: DIONNA CONCEPCION [address]. : 1975 [place] [address] Location: [address] [place], [place] [id number] [facility] #: [id number] [id number] Modified Barium Swallow Report Nina Cleveland CCC-INTRAVENOUS THERAPY NURSE Service Date: 05/20/25 Speech Modified Barium Swallow [...] He presented to the emergency room of [facility] with chief complaints of excessive fatigue and [...] Regular Current Liquid Level: Mildly Thick (MT2) ([facility] Consistency Liquid) - Videofluroscopic Procedure View Utilized: [...] Aspiration: Did not trial - Mildly Thick (MT2)([facility]) Aspiration: Did not trial - Thin Liquids [...] Collected: 05/21/2025 4:20 AM Status: F Source: [facility] TYPE CODE TESTS RESULT OUT OF [...] eGFR equation used can be found at https://www.kidney.org/azxz-qigqg-jvdzkpzs. AGE(years) AVERAGE GFR 50-59 93 ml/min/1.73 square meters Note:This result is normalized to 1.73 square meter body surface area. Height and weight are not factored. LAB L400.2100 Calcium 9.10 Normal 8.8-10.5 mg/dL Performed By: #### L400.5100 , L400.0152, L400.0302 #### Main Laboratory ([facility]) [address] [place] [address] Regan Sahni MD HEPATIC FUNCTION PANEL (LIVER) Collecte d: 05/21/2025 4:20 AM Status: F Source: [facility] TYPE CODE TESTS RESULT OUT OF [...] L400.5100 , L400.0152, L400.0302 #### Main Laboratory ([facility]) [address] [place] [address] Regan Sahni MD MAGNESIUM Collected: 4:20 AM Status: F Source: [facility] TYPE CODE TESTS RESULT OUT OF RANGE REFERENCE UNITS LAB L400.5100 Magnesium 1.8 Normal 1.8-2.5 mg/dL Performed By: #### L400.5100 , L400.0152, L400.0302 #### Main Laboratory ([facility]) [address] [place] [address] Regan Sahni MD CBC WITHOUT DIFFERENTIAL Collected: 4:20 AM Status: F Source: [facility] TYPE CODE TESTS RESULT OUT OF [...] Performed By: #### L100.0050 #### Main Laboratory ([facility]) [address] [place] [address] Regan Sahni MD PROGRESS NOTE NEUROLOGY Observed: 2024 4:32 PM Status: F Source: [facility] Medical Records Patient: DIONNA CONCEPCION [address] : 1975 [place], [place] [address] Location: [phone] Unit #: [id number] Progress Note Neurology Zack Valladares MD Service [...] Inpatient follow-up with [facility] physician please call [facility] at . As we are not an outpatient service for any post hospital discharge needs please contact the hospital for assistance. If you have any questions for the [facility] physicians or need to reconsult for clinical or diagnostic changes please contact us via [facility] at Data: Last Vital Signs Temp Pulse [...] Entered by: Zack Valladares MD on 05/20/25 1638 Report Signed by: Zack Valladares MD on 05/20/25 1639 <<Signature on File>> <Electronically signed by Zack Valladares MD> Report Signed by: on PROGRESS NOTE - HOSPITALIST Observed: 3:06 PM Status: F Source: [facility] Medical Records Patient: DIONNA CONCEPCION [address] : 1975 [place], [place] [address] Location: [facility] [phone] Unit #: [id number] Progress Note - Hospitalist Yanely Lopez ([facility]) TRUCKING CONTRACTOR Service Dt/Tm: 05/20/25 0827 Assessment/Plan Assessment/Plan (1) [...] to name, place, month. Sitting in recliner. Revenue Agent consult for nutritional assessment and oral supplementation. [...] Observed: 05/20/2025 12:16 PM Status: F Source: [facility] Medical Records Patient: DIONNA CONCEPCION. : 1975 [place], [place] [address] Location: [phone] Unit #: [id number] Consultation Michelle Dale DO Dictation ID#: [id number] DATE OF CONSULTATION: 05/19/2025 CO-SIGNING PHYSICIAN: Damion [...] he does with therapies. Case Management and Agency Cashier will assist with his discharge planning. cc: Damion Dale DO; Tay Camara MD Dictated by: Michelle Moise CNP on 05/19/25 1157 Transcribed by: Pooja Jarrell on 05/19/25 1226 Report Signed by: Michelle Moise CNP on 05/20/25 1100 <<Signature on File>> <Electronically signed by Michelle Moise TRUCKING CONTRACTOR> Co-Signer: Damion Dale DO on 05/20/25 1216 <<Signature on File>> <Electronically signed by Damion Dale DO> BASIC METABOLIC,NON-FASTING Collected: 05/20/2025 6:32 AM Status: F Source: [facility] TYPE CODE TESTS RESULT OUT OF [...] eGFR equation used can be found at https://www.kidney.org/qfnq-rxcjv-qujtjbed. AGE(years) AVERAGE GFR 50-59 93 ml/min/1.73 square meters Note:This result is normalized to 1.73 square meter body surface area. Height and weight are not factored. LAB L400.2100 Calcium 9.20 Normal 8.8-10.5 mg/dL Performed By: #### L400.0152 , L400.5100 #### Main Laboratory ([facility]) [address] [place] [address] Regan Sahni MD MAGNESIUM Collected: 6:32 AM Status: F Source: [facility] TYPE CODE TESTS RESULT OUT OF RANGE REFERENCE UNITS LAB L400.5100 Magnesium 1.6 Low 1.8-2.5 mg/dL Performed By: #### L400.0152 , L400.5100 #### Main Laboratory ([facility]) [address] [place] [address] Regan Sahni MD CBC WITHOUT DIFFERENTIAL Collected: 6:32 AM Status: F Source: [facility] TYPE CODE TESTS RESULT OUT OF [...] Performed By: #### L100.0050 #### Main Laboratory ([facility]) [facility] [place] [address] Regan Sahni MD SOCIAL WORK DAILY NOTE Observed: 025 4:12 PM Status: F Source: [facility] Agency Cashier Patient: DIONNA CONCEPCION [address] : 1975 [place], [place] [address] Location: [phone] Unit #: [id number] Social Work Daily Note Marky Olivo Service Date: 05/19/25 Daily Note - * Psychosocial Assessment * I have reviewed nursing and case management psychosocial information.: Yes - * Hospital Stay Days * Day 1 Note: 05/14/2025: KAYLENE c/s for Substance Abuse Screening. Pavan TRIPLETT. +tox for cannabinoids on admission. Hx of alcohol abuse. Enecphalopathy. Pt intubated overnight. Agency Cashier to follow peripherally to discuss with pt when medically appropriate. Therapist Phys: Yeimy Shah, INTERNET SALES DIRECTOR, PSYCH SOCIAL WORKER Day 2 Note: 05/15/2025: KAYLENE following for Substance Abuse Screening. Pavan Huynh. YULIWA. +tox for cannabinoids on admission. Hx of alcohol abuse- Wernickes Enecphalopathy. Pt remains intubated this date. AKYLENE updated by nursing staff that the pt's family is requesting pt d/c to a SNF in the [place], [place] area when medically ready for d/c. KAYLENE called and discussed this with pt's daughter, Maria Fernanda. Maria Fernanda reports most of the family lives between [place] and [place], so [place] would be a good middle location. KAYLENE [...] it will be a short term or skilled nursing placement. Maria Fernanda reports she has not talked with her father in 3 years. Maria Fernanda is unaware of pt's finances and does not know of any POA paperwork that the pt has ever completed. Maria Fernanda stated that the pt is not legally to anyone. Maria Fernanda reports the pt has three living children: Maria Fernanda Glynn PH: [phone], Beverly Concepcion PH: [phone] AND Dionna Jamey PH: [phone]. Maria Fernanda reports Dionna will likely not want to participate in any decision making for the pt. KAYLENE explained that in [place] if there is no POA/Guardian and if pt is not legally , that any decisions will need to be a consensus between all living children. Maria Fernanda voiced understanding. Maria Fernanda would like to review a list of SNFs in [place], [place] to begin reviewing. Maria Fernanda reports her address is [address] [place] [address]. A list of SNFs within 30 miles of Maria Fernanda's address with quality scores emailed to Maria Fernanda at [email or web address]. KAYLENE requested Maria Fernanda to provide a list of 5-10 choices as pt may be a difficult placement d/t history of alcohol abuse and insurance. D/c planning needs pending medical course. SW to continue following. Therapist Phys: Yeimy Shah, DENISSE, KARLA Day 3 Note: 05/16/2025: SW following for Substance Abuse Screening. Pavan Huynh. UZIEL. +tox for cannabinoids on admission. Hx of alcohol abuse- Wernickes Enecphalopathy. Pt remains intubated this date. D/c planning needs pending medical course. SW to continue following. Therapist Phys: Yeimy Shah, DENISSE, KARLA Day 6 Note: 05-19-25 SW following for SNF/dc planning. JIMBO Crooks emailed pt daughter list of SNF options in [place]. DENISSE Crooks sent referral to [facility] for pt to be screened for PAUL benefit. Pt daughter gave choices of SNFs. Sw spoke with admissions of [facility] in [place] and faxed clinical referral to facility. Therapist Phys: Marky Olivo - * Requested Intvs/Referrals * Therapist Phys I Referrals: Substance Abuse Screening - Community Services/Interventions Substance Use Screening: Initiated - * HEALTHCARE DECISIONS * Living Will: Unknown Durable Power of Exchange Engineer for Health Care: No Directive, No SS Referral [facility] DNR Comfort Care: No Directive, No SS Referral [facility] DNR Comfort Care Arrest: No Directive, No SS Referral Entered by: Marky Olivo on 05/19/25 1609 Report Signed by: Marky Olivo on 05/19/25 1612 <<Signature on File>> <Electronically signed by Marky Olivo> Report Signed by: on CONSULTATION - TELENEUROLOGY Observed: 0 05/19/2025 4:01 PM Status: F Source: [facility] Medical Records Patient: DIONNA CONCEPCION [address] : 1975 [place], [place] [address] Location: [phone] Unit #: [id number] Consultation - [facility] Lorelei Quevedo DO Service [...] year. Got birthyear correct. Able to complete [email or web address] sequencing. This consult was conducted in real [...] Inpatient follow-up with [facility] physician please call [facility] at . As we are not an outpatient service for any post hospital discharge needs please contact the hospital for assistance. If you have any questions for the [facility] physicians or need to reconsult for clinical or diagnostic changes please contact us via [facility] at . Impression: [] Recommendations: [] Reason [...] (Updated 05/18/25 @ 17:10 by Dafne Bond ([facility]), TRUCKING CONTRACTOR) History of right MCA stroke Fatigue Chronic [...] HOSPITALIST Observed: 11:37 AM Status: F Source: [facility] Medical Records Patient: DIONNA CONCEPCION [address] : 1975 [place], [place] [address] Location: [phone] Unit #: [id number] Progress Note - Hospitalist Dafne Bond ([facility]) TRUCKING CONTRACTOR Service Dt/Tm: 05/19/25 1059 Assessment/Plan Assessment/Plan (1) [...] to name, place, month. Sitting in recliner. Revenue Agent consult for nutritional assessment and oral supplementation. [...] 915.14 Output Total 1545 4325 Balance -817 -0455.86 Admitting (IV Pump) Weight 61.4 kg Actual [...] continue current treatment Entered by: Dafne Bond ([facility])EMMA on 05/19/25 5055 Report Signed by: Dafne FonsecaSPECIALTY HOS[facility]ITAL OF S[facility] CAL[facility]ORNIAYasmany Bond CNP on 05/19/25 5079 <<Signature on File>> <Electronically signed by Dafne FonsecaSPE[facility]) TRUCKING CONTRACTOR> Report Signed by: on CBC WITHOUT DIFFERENTIAL Collected: 8:07 AM Status: F Source: [facility] TYPE CODE TESTS RESULT OUT OF [...] Performed By: #### L100.0050 #### Main Laboratory ([facility]) [address] [place] [address] Regan Sahni MD POTASSIUM Collected: 8:07 AM Status: F Source: [facility] Order Comment: [email or web address] 0537 TYPE CODE TESTS RESULT OUT OF RANGE REFERENCE UNITS LAB L400.1500 Potassium 3.2 Low 3.6-5.0 mEq/L Performed By: #### L400.5100 , L400.1500, L400.0152 #### Main Laboratory ([facility]) [address] [place] [address] Regan Sahni MD BASIC METABOLIC,NON-FASTING Collected: 05/19/2025 8:07 AM Status: F Source: [facility] Order Comment: [email or web address] 0537 TYPE CODE [...] eGFR equation used can be found at https://www.kidney.org/nvdf-itxvx-swoxqnuk. AGE(years) AVERAGE GFR 50-59 93 ml/min/1.73 square meters Note:This result is normalized to 1.73 square meter body surface area. Height and weight are not factored. LAB L400.2100 Calcium 9.00 Normal 8.8-10.5 mg/dL Performed By: #### L400.5100 , L400.1500, L400.0152 #### Main Laboratory ([facility]) [address] [place] [address] Regan Sahni MD MAGNESIUM Collected: 8:07 AM Status: F Source: [facility] Order Comment: [email or web address] 0537 TYPE CODE TESTS RESULT OUT OF RANGE REFERENCE UNITS LAB L400.5100 Magnesium 1.7 Low 1.8-2.5 mg/dL Performed By: #### L400.5100 , L400.1500, L400.0152 #### Main Laboratory ([facility]) [address] [place] [address] Regan Sahni MD EKG MONITORING Observed: 05/18/2025 7:25 PM Status: F Source: [facility] Patient: DIONNA CONCEPCION [address] : 1975 [place], [place] [address] Location: [phone] Unit #: [id number] Ordering Phys: Nathan Ramos (ICU) TRUCKING CONTRACTOR EKG Monitoring Fransisco Linares MD Exam Date/Time [...] Fransisco Linares MD on 05/16/251455 Transcribed by: [employer] Myah MCGOVERN on 05/18/251923 Report Signed by: Fransisco Linares MD on 05/18/251924 PROGRESS NOTE - HOSPITALIST Observed: 5:30 PM Status: F Source: [facility] Medical Records Patient: DIONNA CONCEPCION [address] : 1975 [place], [place] [address] Location: [address] [place] [address] Unit #: [id number] Progress Note - Hospitalist Dafne Bond ([facility]) TRUCKING CONTRACTOR Service Dt/Tm: 05/18/25 0755 Assessment/Plan Assessment/Plan (1) [...] continue current treatment Entered by: Dafne Bond ([facility]), TRUCKING CONTRACTOR on 05/18/25 2093 Report Signed by: Dafne FonsecaSPECIAL[facility]) Ronda CARTER on 05/18/25 3890 <<Signature on File>> <Electronically signed by Dafne Bond ([facility]) EMMA> Report Signed by: on POTASSIUM Collected: 4:44 AM Status: F Source: [facility] TYPE CODE TESTS RESULT OUT OF RANGE REFERENCE UNITS LAB L400.1500 Potassium 3.5 Low 3.6-5.0 mEq/L Performed By: #### L400.0152 , L400.1500 #### Main Laboratory ([facility]) [address] [place] [address] Regan Sahni MD BASIC METABOLIC,NON-FASTING Collected: 05/18/2025 4:44 AM Status: F Source: [facility] TYPE CODE TESTS RESULT OUT OF [...] eGFR equation used can be found at https://www.kidney.org/skga-fqwpo-ccgluxyc. AGE(years) AVERAGE GFR 50-59 93 ml/min/1.73 square meters Note:This result is normalized to 1.73 square meter body surface area. Height and weight are not factored. LAB L400.2100 Calcium 8.40 Low 8.8-10.5 mg/dL Performed By: #### L400.0152 , L400.1500 #### Main Laboratory ([facility]) [address] [place] [address] Regan Sahni MD LACTIC ACID Collected: 4:31 PM Status: F Source: [facility] TYPE CODE TESTS RESULT OUT OF RANGE REFERENCE UNITS LAB L401.4160 Lactic Acid 1.5 Normal 0.5-2.0 mmol/L Performed By: #### L401.4160 #### Main Laboratory ([facility]) [address] [place] [address] Regan Sahni MD PROLACTIN Collected: 5 4:31 PM Status: F Source: [facility] TYPE CODE TESTS RESULT OUT OF RANGE REFERENCE UNITS LAB L404.7900 Prolactin 9.02 Normal 2.64-13.13 ng/mL Performed By: #### L404.7900 #### Main Laboratory ([facility]) [address] [place] [address] Regan Sahni MD PROGRESS NOTE CRITICAL CARE Observed: 1:42 PM Status: F Source: [facility] Medical Records Patient: DIONNA CONCEPCION [address] : 1975 [place], [place] [address] Location: ICU [phone] Unit #: [id number] Progress Note Critical Care Nathan Ramos (ICU) TRUCKING CONTRACTOR Service Dt/Tm: 05/17/25 0917 <Statement entered by [...] (ml) Other: Weight Measurement Method Built in [facility] General Appearance: Positive Alert and Resting Comfortably; [...] 10 Mg Tab) 10 mg PO DAILY [facility] Stop: 08/19/25 09:01 Last Admin: 05/14/25 09:29 [...] Given Ethyl Alcohol (Nasal Antiseptic (Nozin Nasal Jewelry Cutter) 1 Ampule) 1 each BNOS BID RENAN [...] 250 mls @ 11.513 mls/hr IV DIRECTED [facility]; Protocol Stop: 08/21/25 09:31 Last Titration: 05/16/25 09:56 Dose: Infused Folic Acid 1 mg/ Sodium (Chloride) 50.2 mls @ 50.2 mls/hr IVPB DAILY [facility] Stop: 08/21/25 13:01 Last Admin: 05/17/25 09:16 Dose: 50.2 mls/hr Ampicillin Sodium/Sulbactam (Sodium 3 gm/ Sodium Chloride) 100 mls @ 200 mls/hr IVPB Q6H RENAN Stop: 05/21/25 12:01 Last Infusion: 05/17/25 09:16 Dose: Infused Lactated Ringer's (Lr) 1,000 mls @ 50 mls/hr IV DIRECTED [facility] Stop: 08/22/25 11:16 Last Admin: 05/16/25 18:55 Dose: 50 mls/hr Thiamine HCl 250 mg/ Sodium (Chloride) 52.5 mls @ 105 mls/hr IVPB DAILY [facility] Stop: 05/19/25 09:29 Last Admin: 05/17/25 09:16 Dose: 105 mls/hr Lactobacillus Rhamnosus (Lactobacillus Rhamnosus (Gg) 1 Ea Cap) 1 ea PO DAILY RE[facility] Stop: 06/13/25 09:01 Last Admin: 05/17/25 09:16 Dose: 1 ea Melatonin (Melatonin 3 Mg Tab) 3 mg PO [id number] PRN PRN Reason: insomnia Stop: 08/19/25 07:46 Multivitamins/Minerals (Multivitamin W Minerals 1 Each Tab) 1 tab PO DAILY [facility] Stop: 08/21/25 09:01 Last Admin: 05/17/25 09:16 Dose: 1 tab Ondansetron HCl (Ondansetron 4 Mg/2 Ml Vial) 4 mg IV PUSH Q6HPRN PRN PRN Reason: Nausea and Vomiting Stop: 08/19/25 07:46 Last Admin: 05/13/25 23:49 Dose: 4 mg Pantoprazole Sodium (Pantoprazole Na 40 Mg Vial) 40 mg IV PUSH BID [facility] Stop: 08/22/25 12:01 Last Admin: 05/17/25 09:16 [...] CARE Observed: 12:58 PM Status: F Source: [facility] Medical Records Patient: DIONNA CONCEPCION. : 1975 [place], [place] [address] Location: ICU [phone] Unit #: [id number] Progress Note Critical Care Nathan Ramos (ICU) EMMA Service Dt/Tm: 05/16/25 1419 <Statement entered by Jack Miller MD - 05/17/25 12:58> Patient is seen and examined at the bedside. Agree with Nathan Ramos DIRECTOR RECREATION. Overall condition improved. He is more arousable [...] unspecified with withdrawal delirium Status: Suspected Plan: [facility] protocol Sedation with Versed drip Seizure precautions [...] (ml) Other: Weight Measurement Method Built in [facility] Number of Incontinent Stools 2 Amount of [...] Mg/0.4 Ml Syr) 40 mg SC DAILY [facility] Stop: 08/19/25 09:01 Last Admin: 05/14/25 10:20 Dose: Not Given Ethyl Alcohol (Nasal Antiseptic (Nozin Nasal Jewelry Cutter) 1 Ampule) 1 each BNOS BID RENAN Stop: 08/20/25 09:01 Last Admin: 05/16/25 09:05 Dose: 1 each Fentanyl Citrate (Fentanyl Citrate 100 Mcg/2 Ml Amp) 50 mcg IV PUSH Q4HPRN PRN PRN Reason: Pain, Moderate to Severe Stop: 08/21/25 10:51 Hydrocortisone Sodium Succinate (Hydrocortisone Na Succinate 100 Mg/2 Ml Vial) 50 mg IV PUSH QID@0000,0600,1200,1800 [facility] Stop: 08/21/25 18:01 Last Admin: 05/16/25 11:39 [...] 1 Each Tab) 1 tab PO DAILY [facility] Stop: 08/21/25 09:01 Last Admin: 05/16/25 09:04 [...] Final Entered by: Nathan Ramos (ICU)EMMA on 05/16/25 1419 Report Signed by: Nathan (ICU) Rachel CARTER on 05/16/25 1614 <<Signature on File>> <Electronically signed by Nathan Ramos (ICU) TRUCKING CONTRACTOR> Report Signed by: Jack Miller MD on 05/17/25 1258 <<Signature on File>> <Electronically signed by Jack Miller MD> SPEECH BEDSIDE SWALLOWING EVAL Observed: 05/17/2025 10:22 AM Status: F Source: [facility] Speech Therapy Department Patient: DIONNA CONCEPCION [address] : 1975 [place] [address] Location: ICU [phone] Unit #: [id number] Speech Bedside Swallowing Eval Nina Cleveland [facility]-INTRAVENOUS THERAPY NURSE Service Date: 05/17/25 Speech Bedside Swallowing Eval - Speech Bedside Swallowing Eval Type of Note: Initial Evaluation Type of Evaluation: Acute Evaluation Date: 05/17/25 Start Time: 09:55 End Time: 10:16 Diagnosis: Sepsis Referring Physician: Jonnyuing - Patient History Patient History: 57-year-old male with past history of CVA. He presented to the emergency room of [facility] with chief complaints of excessive fatigue and [...] Overt Cough, Throat Clear Mildly Thick (MT2) ([place]acy-[place] Consistency Liquid): WNL, Throat Clear - DIAGNOSIS [...] (SB6) (Dysphagia 3 Soft/Chopped), Mildly Thick (MT2) ([place] Consistency Liquid) NPO: No Presentation of Medications: [...] Notified: Yes cc: Dictated by: Nina Cleveland CCC-INTRAVENOUS THERAPY NURSE on 05/17/25 1016 Entered by: CHANDLER Blood on 05/17/25 1016 Report Signed by: Nina Cleveland on 05/17/25 1022 <<Signature on File>> <Electronically signed by Nina Cleveland [facility]-INTRAVENOUS THERAPY NURSE> Co-Signed by: on METER GLUCOSE Collected: 6:00 AM Status: F Source: [facility] TYPE CODE TESTS RESULT OUT OF RANGE REFERENCE UNITS LAB L702.1000 Meter Glucose 124 High 70-110 mg/dl Performed By: #### L702.1000 #### Main Laboratory ([facility]) [address] [place] [address] Regan Sahni MD COMPREHENSIVE METABOLIC PANEL Collected: 05/17/2025 4 :35 AM Status: F Source: [facility] TYPE CODE TESTS RESULT OUT OF [...] eGFR equation used can be found at https://www.kidney.org/thum-mydtk-detrnvxu. AGE(years) AVERAGE GFR 50-59 93 ml/min/1.73 square [...] L400.0076 , L400.2200, L400.5100 #### Main Laboratory ([facility]) [address] [place] [address] Regan Sahni MD PHOSPHORUS Collected: 4:35 AM Status: F Source: [facility] TYPE CODE TESTS RESULT OUT OF RANGE REFERENCE UNITS LAB L400.2200 Phosphorus 2.7 Normal 2.4-4.7 mg/dL Performed By: #### L400.0076 , L400.2200, L400.5100 #### Main Laboratory ([facility]) [facility] [place] [address] Regan Sahni MD MAGNESIUM Collected: 4:35 AM Status: F Source: [facility] TYPE CODE TESTS RESULT OUT OF RANGE REFERENCE UNITS LAB L400.5100 Magnesium 2.1 Normal 1.8-2.5 mg/dL Performed By: #### L400.0076 , L400.2200, L400.5100 #### Main Laboratory ([facility]) [facility] [place] [address] Regan Sahni MD IONIZED CALCIUM Collected: 4:35 AM Status: F Source: [facility] TYPE CODE TESTS RESULT OUT OF RANGE REFERENCE UNITS LAB L400.0049 Ionized Calcium 1.17 Normal 1.15-1.29 mmol/L Performed By: #### L400.0049 #### Main Laboratory ([facility]) [facility] [place] [address] Regan Sahni MD CBC WITHOUT DIFFERENTIAL Collected: 10/2025 4:35 AM Status: F Source: [facility] TYPE CODE TESTS RESULT OUT OF [...] Performed By: #### L100.0050 #### Main Laboratory ([facility]) [address] [place] [address] Regan Sahni MD METER GLUCOSE Collected: 5 11:54 PM Status: F Source: [facility] TYPE CODE TESTS RESULT OUT OF RANGE REFERENCE UNITS LAB L702.1000 Meter Glucose 124 High 70-110 mg/dl Performed By: #### L702.1000 #### Main Laboratory ([facility]) Formerly [facility] [place] [address] Regan Sahni MD METER GLUCOSE Collected: 5 5:25 PM Status: F Source: [facility] TYPE CODE TESTS RESULT OUT OF RANGE REFERENCE UNITS LAB L702.1000 Meter Glucose 128 High 70-110 mg/dl Performed By: #### L702.1000 #### Main Laboratory ([facility]) [address] [place] [address] Regan Sahni MD SOCIAL WORK DAILY NOTE Observed: 025 3:29 PM Status: F Source: [facility] Agency Cashier Patient: DIONNA CONCEPCION [address] : 1975 [place], [place] [address] Location: ICU [phone] Unit #: [id number] Social Work Daily Note Yeimy Shah INTERNET SALES DIRECTOR, PSYCH SOCIAL WORKER Service Date: 05/16/25 SW Daily Note - * Psychosocial Assessment * I have reviewed nursing and case management psychosocial information.: Yes - * Hospital Stay Days * Day 1 Note: 05/14/2025: SW c/s for Substance Abuse Screening. Caldwell Ambetter. CIWA. +tox for cannabinoids on admission. Hx of alcohol abuse. Enecphalopathy. Pt intubated overnight. Agency Cashier to follow peripherally to discuss with pt when medically appropriate. Therapist Phys: eYimy Shah, INTERNET SALES DIRECTOR, PSYCH SOCIAL WORKER Day 2 Note: 05/15/2025: SW following for Substance Abuse Screening. Caldwell Ambetter. CIWA. +tox for cannabinoids on admission. Hx of alcohol abuse- Wernickes Enecphalopathy. Pt remains intubated this date. SW updated by nursing staff that the pt's family is requesting pt d/c to a SNF in the [place], [place] area when medically ready for d/c. SW called and discussed this with pt's daughter, Maria Fernanda. Maria Fernanda reports most of the family lives between [place] and [place], so [place] would be a good middle location. KAYLENE [...] it will be a short term or skilled nursing placement. Maria Fernanda reports she has not talked with her father in 3 years. Maria Fernanda is unaware of pt's finances and does not know of any POA paperwork that the pt has ever completed. Maria Fernanda stated that the pt is not legally to anyone. Maria Fernanda reports the pt has three living children: Maria Fernanda Glynn PH: [phone], Beverly Concepcion PH: [phone] AND Dionna Concepcion PH: [phone]. Maria Fernanda reports Dionna will likely not want to participate in any decision making for the pt. KAYLENE explained that in [place] if there is no POA/Guardian and if pt is not legally , that any decisions will need to be a consensus between all living children. Maria Fernanda voiced understanding. Maria Fernanda would like to review a list of SNFs in [place], [place] to begin reviewing. [place] Fern[place] [address]. A list of SNFs within 30 miles of Maria Fernanda's address with quality scores emailed to Maria Fernanda at . KAYLENE requested Maria Fernanda to provide a list of 5-10 choices as pt may be a difficult placement d/t history of alcohol abuse and insurance. D/c planning needs pending medical course. SW to continue following. Therapist Phys: Yeimy Shah MSW, LISW Day 3 Note: 05/16/2025: SW following for Substance Abuse Screening. Pavan TRIPLETT. +tox for cannabinoids on admission. Hx of alcohol abuse- Wernickes Enecphalopathy. Pt remains intubated this date. D/c planning needs pending medical course. SW to continue following. Therapist Phys: Yeimy Shah MSW, LISW - * Requested Intvs/Referrals * Therapist Phys I Referrals: Substance Abuse Screening - Community Services/Interventions Substance Use Screening: Initiated - * HEALTHCARE DECISIONS * Living Will: Unknown Durable Power of Exchange Engineer for Health Care: No Directive, No SS Referral [facility] DNR Comfort Care: No Directive, No SS Referral [facility] DNR Comfort Care Arrest: No Directive, No SS Referral Entered by: DENISSE Abreu LISW on 05/16/25 1315 Report Signed by: Yeimy Shah on 05/16/25 1529 <<Signature on File>> <Electronically signed by KARLA Ellis> Report Signed by: on POTASSIUM Collected: 2:19 PM Status: F Source: [facility] TYPE CODE TESTS RESULT OUT OF RANGE REFERENCE UNITS LAB L400.1500 Potassium 4.1 Normal 3.6-5.0 mEq/L Performed By: #### L400.1500 #### Main Laboratory ([facility]) [address] [place] [address] Regan Sahni MD CASE MANAGEMENT DAILY NOTE Observed: 09/2025 2:18 PM Status: F Source: [facility] Case Management Patient: DIONNA CONCEPCION [address] : 1975 [place], [place] [address] Location: ICU [phone] Unit #: [id number] Case Management Daily Note Sonja Mcmahan Service Date: 05/16/25 Case Mgmt Daily Note - Plan of Care Claims Agent Right Of Way Agrees with Attending and Consult Plan: Yes - Patient Preferences AND Goals What is the patient's preference?: Services to be Determined Recommended acute discharge goals: Services to be Determined - Hospital Stay Days Day 1 Comment: 05/11 - Spoke with patient at bedside. Patient has Pavan Huynh. PCP is Pam Camara. appraiser personal property is his father, Dionna. [facility]. Denies services, DME. He is independent [...] states he has been falling at home. Claims Agent Right Of Way: Ana Snyder, RN Day 2 Comment: 05/12 - Spoke with pt. MRI completed and pending results. Neuro following. PT/OT ordered and recommended IPR. Rehab consulted to review case and waiting on response. Claims Agent Right Of Way: Shelbi Jackson Day 3 Comment: 05/13 Dispo pending medical course. IPR following, c/s placed 05/12. MRI B (-) for acute CVA. WBC 42.9. Lactic 3.7. BC/UA/Sputum Cx. IV Rocephin/IVF. PT/OT. Claims Agent Right Of Way: Jimena Carcamo, RN Day 4 Comment: 05/14: Patient transferred to ICU overnight. Intubated. PEEP 5. FiO2 40%. Propofol. Versed. Levo. Vaso. IVP Solu Cortef QID. Seizure precautions. WBC 36.5. 05/13 blood cultures pending. IV unasyn Q6. ID following. MRCP today. Surgery following. SW d/t alcohol abuse. Needs TBD pending medical medical course. Claims Agent Right Of Way: Sonja Mcmahan Day 5 Comment: 05/15: Patient remains intubated. PEEP 5. FiO2 30%. Versed. Levo. IVP Solu Cortef QID. IV ampicillin Q6. WBC 25.3. 7/9 sputum positive. 7/8 blood cultures negative to date. GI following, ERCP today. Surgery following. ID following. SW following d/t alcohol abuse. Needs TBD pending medical course. Claims Agent Right Of Way: Sonja Mcmahan Day 6 Comment: 05/16: Patient remains intubated. PEEP 5. FiO2 30%. IVP Solu Cortef QID. LR @ 50. ID following. WBC 9.5. IV ampicillin Q6. Hgb 8.8. Needs TBD pending medical course and therapy recs post extubation. Claims Agent Right Of Way: Sonja Mcmahan - Respiratory Equipment Does the [...] Observed: 05/16/2025 11:55 AM Status: F Source: [facility] Endoscopy Patient: DIONNA CONCEPCION [address] : 1975 [place], [place] [address] Location: ICU [phone] [facility] #: [id number] [id number] ERCP Chris Velasquez MD Dictation ID#: [id number] DATE OF PROCEDURE: 05/15/2025. PREPROCEDURE DIAGNOSES: 1. [...] Dictated by: Chris Velasquez MD on 05/15/25 6215 Transcribed by: Leora Ayala on 05/15/251946 Report Signed by: Chris Velasquez MD on 05/16/25 1156 <<Signature on File>> <Electronically signed by Chris Velasquez MD> METER GLUCOSE Collected: 5 11:33 AM Status: F Source: [facility] TYPE CODE TESTS RESULT OUT OF RANGE REFERENCE UNITS LAB L702.1000 Meter Glucose 117 High 70-110 mg/dl Performed By: #### L702.1000 #### Main Laboratory ([facility]) [address] [place] [address] Regan Sahni MD VENOUS BLOOD GASES Collected: 5 10:55 AM Status: F Source: [facility] TYPE CODE TESTS RESULT OUT OF RANGE REFERENCE UNITS LAB L901.31401 Venous pH 7.43 High 7.31-7.41 LAB L901.16606 Venous pCO2 27 Low 41-51 mmHg LAB L901.71620 Venous pO2 35 Low 80-105 mmHg LAB L901.47850 Venous Bicarbonate 17.7 Low 23.0-28.0 mmol/L LAB L901.45666 Venous Base Excess -7 Low -2-3 mmol/L LAB L901.31079 Venous O2 Saturation 71 Low 95-98 % LAB L901.67776 Venous FiO2 0.30 Normal LAB L902.49514 ABG Draw Site Vein Normal LAB L902.91580 ABG Device Vent Normal LAB L902.54960 Unit Notified? Yes Normal LAB L902.18350 ABG MODE AC Normal LAB L902.92010 VT 500 Normal LAB L902.06779 RR 16 Normal LAB L902.19092 PEEP 5.0 Normal Performed By: #### L901.1000 0 #### Main Laboratory ([facility]) [address] [place] [address] Regan Sahni MD PROGRESS NOTE SURGICAL Observed: 025 10:49 AM Status: F Source: [facility] Medical Records Patient: DIONNA CONCEPCION [address] : 1975 [place] [address] Location: ICU [phone] Unit #: [id number] Progress Note Surgical Russell Rogers PA-C Service [...] 700 Other: Weight Measurement Method Built in [facility] General Appearance: Positive On Vent HEENT: Positive [...] Results: 05/15/25 06:37 Images available, please contact [facility] Medical Records 05/15/25 01:55 Images available, please contact [facility] Medical Records Laboratory Results - last 24 hr WBC RBC Hgb Hct MCV MCH MCHC RDW Plt Count Neut % (Auto) Lymph % (Auto) Crook % (Auto) Eos % (Auto) Baso % [...] 96.0 H Lymph % (Auto) 1.9 L Crook % (Auto) 1.4 L Eos % (Auto) 0.2 Baso % (Auto) 0.5 Nucleat RBC Rel Count 0.0 Absolute Neuts (auto) 80487 H Absolute Lymphs (auto) 500 L Absolute [...] 150 Neut % (Auto) Lymph % (Auto) Crook % (Auto) Eos % (Auto) Baso % [...] Count Neut % (Auto) Lymph % (Auto) Crook % (Auto) Eos % (Auto) Baso % [...] Count Neut % (Auto) Lymph % (Auto) Crook % (Auto) Eos % (Auto) Baso % [...] Count Neut % (Auto) Lymph % (Auto) Crook % (Auto) Eos % (Auto) Baso % [...] Observed: 025 10:26 AM Status: F Source: [facility] Medical Records Patient: DIONNA CONCEPCION [address] : 1975 [place], [place] [address] Location: ICU [phone] Unit #: [id number] Progress Note Surgical Rusesll Rogers PA-C Service Dt/Tm: 05/16/25 0810 <Statement [...] (ml) Other: Weight Measurement Method Built in [facility] Amount of Stools Medium Stool Color Brown [...] Results: 05/16/25 03:53 Images available, please contact [facility] Medical Records 05/16/25 04:00 Images available, please contact [facility] Medical Records Laboratory Results - last 24 [...] Observed: 05/16/20 8:11 AM Status: F Source: [facility] Radiology Department Patient: DIONNA CONCEPCION [address] : 1975 Sex: Mirta [place] [address] Location: [facility] [phone] Unit #: [id number] Ordering Phys: Russell Rogers PA-C Exam Date: [...] GLUCOSE Collected: 6:09 AM Status: F Source: [facility] TYPE CODE TESTS RESULT OUT OF RANGE REFERENCE UNITS LAB L702.1000 Meter Glucose 113 High 70-110 mg/dl Performed By: #### L702.1000 #### Main Laboratory ([facility]) [address] [place] [address] Regan Sahni MD OCCULT BLOOD, DIAG (IFOBT) Observed: 09/2025 5:40 AM Status: F Source: [facility] Result Positive Performed By: #### M400.1015 #### Main Laboratory ([facility]) [address] [place] [address] Regan Sahni MD COMPREHENSIVE METABOLIC PANEL Collected: 05/16/2025 4 :00 AM Status: F Source: [facility] TYPE CODE TESTS RESULT OUT OF [...] eGFR equation used can be found at https://www.kidney.org/dvcm-jttzz-dzxrdevj. AGE(years) AVERAGE GFR 50-59 93 ml/min/1.73 square [...] #### L400.5100 , L400.0076 #### Main Laboratory ([facility]) [address] [place] [address] Regan Sahni MD MAGNESIUM Collected: 5 4:00 AM Status: F Source: [facility] TYPE CODE TESTS RESULT OUT OF RANGE REFERENCE UNITS LAB L400.5100 Magnesium 2.0 Normal 1.8-2.5 mg/dL Performed By: #### L400.5100 , L400.0076 #### Main Laboratory ([facility]) [address] [place] [address] Regan Sahni MD IONIZED CALCIUM Collected: 5 3:53 AM Status: F Source: [facility] TYPE CODE TESTS RESULT OUT OF RANGE REFERENCE UNITS LAB L400.0049 Ionized Calcium 1.15 Normal 1.15-1.29 mmol/L Performed By: #### L400.0049 #### Main Laboratory ([facility]) [address] [place], [place] [address] [place] [address] Regan Sahni MD CBC WITHOUT DIFFERENTIAL Collected: 09/2025 3:53 AM Status: F Source: [facility] TYPE CODE TESTS RESULT OUT OF [...] Performed By: #### L100.0050 #### Main Laboratory ([facility]) [address] [place], [place] [address]jay[place] [address] eRgan Sahni MD METER GLUCOSE Collected: 11:47 PM Status: F Source: [facility] TYPE CODE TESTS RESULT OUT OF RANGE REFERENCE UNITS LAB L702.1000 Meter Glucose 129 High 70-110 mg/dl Performed By: #### L702.1000 #### Main Laboratory ([facility]) [address] [place], [place] [address]m[place] [address] Regan Sahni MD METER GLUCOSE Collected: 6:04 PM Status: F Source: [facility] TYPE CODE TESTS RESULT OUT OF RANGE REFERENCE UNITS LAB L702.1000 Meter Glucose 122 High 70-110 mg/dl Performed By: #### L702.1000 #### Main Laboratory ([facility]) [address] [place] [address] Regan Sahni MD XR ERCP Observed: 05/15/2025 5:43 PM Status: F Source: [facility] Radiology Department Patient: DIONNA CONCEPCION [address] : 1975 Sex: [place] [address] Location: ICU [phone] Unit #: [id number] Ordering Phys: Chris Velasquez MD Exam Date: [...] Camara MD; Chris Velasquez MD Dictated by: Nahtan Epstein MD on 05/16/25913 Transcribed by: Nathan Epstein on 05/16/25914 Report Signed by: Nathan Epstein MD on 05/16/25914 PROCEDURE NOTE - SURGICAL Observed: 05/06 5:38 PM Status: F Source: [facility] Medical Records Patient: DIONNA CONCEPCION [address] : 1975 [place], [place] [address] Location: ICU [phone] Unit #: [id number] Procedure Note - Surgical Chris Velasquez MD Service Dt/Tm: 05/15/25 173 Diagnosis Date of Procedure: 05/15/25 Pre-Procedure Diagnosis: Choledocholithiasis cholangitis Post Procedure Diagnosis: Same (Ampulla inside the diverticulum, bile duct stone status post sphincterotomy stones extraction with the balloon) - Performing Surgeon/Provider: Chris Velasquez MD Was Director Of Teenage Activities(s) Used: No Procedure Performed: ERCP Colonoscopy Core [...] Observed: 05/15/2025 5:02 PM Status: F Source: [facility] Medical Records Patient: DIONNA CONCEPCION [address] : 1975 [place], [place] [address] Location: ICU [phone] Unit #: [id number] Consultation Chris Velasquez MD Service Date: 05/15/25 [...] (Auto) 1.9 % (15-45) L 05/15/25 01:55 Crook % (Auto) 1.4 % (2-10) L 05/15/25 01:55 Eos % (Auto) 0.2 % (0-6) 05/15/25 01:55 Baso % (Auto) 0.5 % (0-2) 05/15/25 01:55 Nucleat RBC Rel Count 0.0 /100 WBC (<1) 05/15/25 01:55 Absolute Neuts (auto) 53328 /cmm (4254-3135) H 05/15/25 01:55 Absolute Lymphs (auto) 500 /cmm (4725-7818) L 05/15/25 01:55 Absolute Monos (auto) 400 [...] 1.0 % 05/14/25 02:40 Abs Neuts (Manual) 68266 /cmm (8179-3389) H 05/14/25 02:40 Abs Lymphs (Manual) 364 /cmm (9349-1766) L 05/14/25 02:40 Abs Monocytes (Manual) 1092 [...] pH 7.0 (5.0-8.0) 05/13/25 09:16 Ur Specific [place] 1.021 (1.000-1.035) 05/13/25 09:16 Urine Protein 20 [...] Observed: 025 3:31 PM Status: F Source: [facility] Agency Cashier Patient: DIONNA CONCEPCION [address] : 1975 [place], [place] [address] Location: ICU [phone] Unit #: [id number] Social Work Daily Note Yeimy M Park INTERNET SALES DIRECTOR, PSYCH SOCIAL WORKER Service Date: 05/15/25 KAYLENE Daily Note - * Psychosocial Assessment * I have reviewed nursing and case management psychosocial information.: Yes - * Hospital Stay Days * Day 1 Note: 05/14/2025: SW c/s for Substance Abuse Screening. Caldwell Ambetter. CIWA. +tox for cannabinoids on admission. Hx of alcohol abuse. Enecphalopathy. Pt intubated overnight. Agency Cashier to follow peripherally to discuss with pt when medically appropriate. Therapist Phys: Yeimy Shah, INTERNET SALES DIRECTOR, PSYCH SOCIAL WORKER Day 2 Note: 05/15/2025: SW following for Substance Abuse Screening. Caldwell Ambetter. CIWA. +tox for cannabinoids on admission. Hx of alcohol abuse- Wernickes Enecphalopathy. Pt remains intubated this date. KAYLENE updated by nursing staff that the pt's family is requesting pt d/c to a SNF in the [place], [place] area when medically ready for d/c. KAYLENE called and discussed this with pt's daughter, Maria Fernanda. Maria Fernanda reports most of the family lives between [place] and [place], so [place] would be a good middle location. KAYLENE [...] it will be a short term or agents' records clerk placement. Maria Fernanda reports she has not talked with her father in 3 years. Maria Fernanda is unaware of pt's finances and does not know of any POA paperwork that the pt has ever completed. Maria Fernanda stated that the pt is not legally to anyone. Maria Fernanda reports the pt has three living children: Maria Fernanda Betts PH: [phone], Beverly Concepcion PH: [phone] AND Dionna Concepcion PH: [phone]. Maria Fernanda reports Dionna will likely not want to participate in any decision making for the pt. KAYLENE explained that in [place] if there is no POA/Guardian and if pt is not legally , that any decisions will need to be a consensus between all living children. Maria Fernanda voiced understanding. Maria Fernanda would like to review a list of SNFs in [place], [place] to begin reviewing. Maria Fernanda reports [place] is [address] [place] [address] [place] [address]. A list of SNFs within 30 miles of Maria Fernanda's address with quality scores emailed to Maria Fernanda at [email or web address]. KAYLENE requested Maria Fernanda to provide a list of 5-10 choices as pt may be a difficult placement d/t history of alcohol abuse and insurance. D/c planning needs pending medical course. SW to continue following. Therapist Phys: Yeimy Shah MSW, LISW - * Requested Intvs/Referrals * Therapist Phys I Referrals: Substance Abuse Screening - Community Services/Interventions Substance Use Screening: Initiated - * HEALTHCARE DECISIONS * Living Will: Unknown Durable Power of Exchange Engineer for Health Care: No Directive, No SS Referral [facility] DNR Comfort Care: No Directive, No SS Referral [facility] DNR Comfort Care Arrest: No Directive, No SS Referral Entered by: DENISSE Abreu LISW on 05/15/25 1107 Report Signed by: Yeimy Shah on 05/15/25 1531 <<Signature on File>> <Electronically signed by KARLA Ellis> Report Signed by: on CASE MANAGEMENT DAILY NOTE Observed: 08/2025 3:25 PM Status: F Source: [facility] Case Management Patient: DIONNA CONCEPCION [address] : 1975 [place], [place] [address] Location: ICU [phone] Unit #: [id number] Case Management Daily Note Sonja Mcmahan Service Date: 05/15/25 Case Mgmt Daily Note - Plan of Care Claims Agent Right Of Way Agrees with Attending and Consult Plan: Yes - Patient Preferences AND Goals What is the patient's preference?: Services to be Determined Recommended acute discharge goals: Services to be Determined - Hospital Stay Days Day 1 Comment: 05/11 - Spoke with patient at bedside. Patient has Pavan Huynh. PCP is Pam Camara. appraiser personal property is his father, Dionna. Pharmacy is [facility] [...] states he has been falling at home. Claims Agent Right Of Way: Ana Snyder, RN Day 2 Comment: 05/12 - Spoke with pt. MRI completed and pending results. Neuro following. PT/OT ordered and recommended IPR. Rehab consulted to review case and waiting on response. Claims Agent Right Of Way: Shelbi Jackson Day 3 Comment: 05/13 Dispo pending medical course. IPR following, c/s placed 05/12. MRI B (-) for acute CVA. WBC 42.9. Lactic 3.7. BC/UA/Sputum Cx. IV Rocephin/IVF. PT/OT. Claims Agent Right Of Way: Jimena Carcamo RN Day 4 Comment: 05/14: Patient transferred to ICU overnight. Intubated. PEEP 5. FiO2 40%. Propofol. Versed. Levo. Vaso. IVP Solu Cortef QID. Seizure precautions. WBC 36.5. 7/8 blood cultures pending. IV unasyn Q6. ID following. MRCP today. Surgery following. SW d/t alcohol abuse. Needs TBD pending medical medical course. Claims Agent Right Of Way: Sonja Mcmahan Day 5 Comment: 05/15: Patient remains intubated. PEEP 5. FiO2 30%. Versed. Levo. IVP Solu Cortef QID. IV ampicillin Q6. WBC 25.3. 7/9 sputum positive. 8 blood cultures negative to date. GI following, ERCP today. Surgery following. ID following. SW following d/t alcohol abuse. Needs TBD pending medical course. Claims Agent Right Of Way: Sonja Mcmahan - Respiratory Equipment Does the [...] 0 05/15/2025 2:13 PM Status: F Source: [facility] Medical Records Patient: DIONNA CONCEPCION [address] : 1975 [place] [address] Location: ICU [phone] Unit #: [id number] Prog Note - HANDP Update Stamp Chris [...] CARE Observed: 12:37 PM Status: F Source: [facility] Medical Records Patient: DIONNA CONCEPCION. : 1975 [place] [address] Location: ICU [phone] Unit #: [id number] Progress Note Critical Care Nathan Ramos (ICU) [facility] Service Dt/Tm: 05/15/25 0840 ADDENDUM: Patient seen [...] unspecified with withdrawal delirium Status: Suspected Plan: [facility] protocol Sedation with Versed drip Seizure precautions [...] 600 Other: Weight Measurement Method Built in [facility] Current Clinical Active Medications Amlodipine Besylate (Amlodipine [...] Btl (Vent Protocol)) 30 ml MT BID@08,20 [facility] Stop: 08/21/25 08:01 Last Admin: 05/15/25 07:53 [...] Mg/0.4 Ml Syr) 40 mg SC DAILY [facility] Stop: 08/19/25 09:01 Last Admin: 05/14/25 10:20 Dose: Not Given Ethyl Alcohol (Nasal Antiseptic (Nozin Nasal Jewelry Cutter) 1 Ampule) 1 each BNOS BID [facility] Stop: 08/20/25 09:01 Last Admin: 05/15/25 08:27 Dose: 1 each Fentanyl Citrate (Fentanyl Citrate 100 Mcg/2 Ml Amp) 50 mcg IV PUSH Q4HPRN PRN PRN Reason: Pain, Moderate to Severe Stop: 08/21/25 10:51 Hydrocortisone Sodium Succinate (Hydrocortisone Na Succinate 100 Mg/2 Ml Vial) 50 mg IV PUSH QID@0000,0600,1200,1800 [facility] Stop: 08/21/25 18:01 Last Admin: 05/15/25 05:34 [...] Indomethacin (Indomethacin 50 Mg Sup) 100 mg OK PREOP ONE Stop: 05/15/25 16:01 Lactobacillus Rhamnosus [...] 05/15/25 16:30 Non-Formulary Medication (Pharmacy Communication 1 Christaine Roper) [address]NAN; [...] 96.0 H Lymph % (Auto) 1.9 L Crook % (Auto) 1.4 L Eos % (Auto) 0.2 Baso % (Auto) 0.5 Nucleat RBC Rel Count 0.0 Absolute Neuts (auto) 90054 H Absolute Lymphs (auto) 500 L Absolute [...] Collected: 5 11:25 AM Status: F Source: [facility] TYPE CODE TESTS RESULT OUT OF RANGE REFERENCE UNITS LAB L702.1000 Meter Glucose 115 High 70-110 mg/dl Performed By: #### L702.1000 #### Main Laboratory ([facility]) [facility] [place] [address] Regan Sahni MD VENOUS BLOOD GASES Collected: 5 10:43 AM Status: F Source: [facility] TYPE CODE TESTS RESULT OUT OF RANGE REFERENCE UNITS LAB L901.42815 Venous pH 7.47 High 7.31-7.41 LAB L901.16329 Venous pCO2 23 Low 41-51 mmHg LAB L901.79439 Venous pO2 38 Low 80-105 mmHg LAB L901.46040 Venous Bicarbonate 17.0 Low 23.0-28.0 mmol/L LAB L901.87177 Venous Base Excess -7 Low -2-3 mmol/L LAB L901.23413 Venous O2 Saturation 77 Low 95-98 % LAB L901.85681 Venous FiO2 0.30 Normal LAB L902.31132 ABG Draw Site Central Line Normal LAB L902.10171 ABG Device Vent Normal LAB L902.02932 Unit Notified? Yes Normal LAB L902.16909 ABG MODE AC Normal LAB L902.24870 VT 500 Normal LAB L902.88482 RR 20 Normal LAB L902.40846 PEEP 5.0 Normal Performed By: #### L901.1000 0 #### Main Laboratory ([facility]) [address] [place] [address] Regan Sahni MD ANESTHESIA PRE-OP EVALUATION Observed: 0 05/15/2025 8:56 AM Status: F Source: [facility] Medical Records Patient: DIONNA CONCEPCION [address] : 1975 [place], [place] [address] Location: ICU [phone] Unit #: [id number] Anesthesia Pre-Op Evaluation Dipak Dahl MD Service [...] Mg/0.4 Ml Syr) 40 mg SC DAILY [facility] Stop: 08/19/25 09:01 Last Admin: 05/14/25 10:20 Dose: Not Given Ethyl Alcohol (Nasal Antiseptic (Nozin Nasal Jewelry Cutter) 1 Ampule) 1 each BNOS BID RENAN Stop: 08/20/25 09:01 Last Admin: 05/15/25 08:27 Dose: 1 each Fentanyl Citrate (Fentanyl Citrate 100 Mcg/2 Ml Amp) 50 mcg IV PUSH Q4HPRN PRN PRN Reason: Pain, Moderate to Severe Stop: 08/21/25 10:51 Hydrocortisone Sodium Succinate (Hydrocortisone Na Succinate 100 Mg/2 Ml Vial) 50 mg IV PUSH QID@0000,0600,1200,1800 [facility] Stop: 08/21/25 18:01 Last Admin: 05/15/25 05:34 [...] Indomethacin (Indomethacin 50 Mg Sup) 100 mg OK PREOP ONE Stop: 05/15/25 16:01 Lactobacillus Rhamnosus [...] 05/15/25 @ 08:55 by Nathan Ramos (ICU), TRUCKING CONTRACTOR) History of right MCA stroke Fatigue Chronic [...] Diagrams 05/15/25 06:37 Images available, please contact [facility] Medical Records 05/15/25 01:55 Images available, please contact [facility] Medical Records INR 0.98 (0.9-1.2) 05/11/25 15:14 [...] 05/15/2025 6:40 AM Sta tus: F Source: [facility] TYPE CODE TESTS RESULT OUT OF RANGE REFERENCE UNITS LAB L901.13113 Venous pH 7.46 High 7.31-7.41 LAB L901.98988 Venous pCO2 24 Low 41-51 mmHg LAB L901.89515 Venous pO2 44 Low 80-105 mmHg LAB L901.75179 Venous Bicarbonate 16.8 Low 23.0-28.0 mmol/L LAB L901.19577 Venous Base Excess -7 Low -2-3 mmol/L LAB L901.94028 Venous O2 Saturation 84 Low 95-98 % LAB L901.11902 Venous FiO2 30.00 Normal LAB L902.69794 ABG Draw Site Vein Normal LAB L902.72444 ABG Device Vent Normal LAB L902.36265 Unit Notified? Yes Normal LAB L902.20726 ABG MODE AC Normal LAB L902.83574 VT 500 Normal LAB L902.89905 RR 20 Normal LAB L902.13303 PEEP 5.0 Normal Performed By: #### L901.1000 0 #### Main Laboratory ([facility]) [address] [place] [address] Regan Sahni MD HEMOGLOBIN & HEMATOCRIT Collected: 05/06 6:37 AM Status: F Source: [facility] TYPE CODE TESTS RESULT OUT OF RANGE REFERENCE UNITS LAB L100.0400 Hemoglobin 9.8 Low 13.5-16.5 gm/dL LAB L100.0500 Hematocrit 28.6 Low 40.0-49.0 % Performed By: #### L100.0074 #### Main Laboratory ([facility]) [address] [place] [place] [address] Regan Sahni MD METER GLUCOSE Collected: 6:18 AM Status: F Source: [facility] TYPE CODE TESTS RESULT OUT OF RANGE REFERENCE UNITS LAB L702.1000 Meter Glucose 147 High 70-110 mg/dl Performed By: #### L702.1000 #### Main Laboratory ([facility]) Formerly [facility] [place] [address] Regan Sahni MD BASIC METABOLIC,NON-FASTING Collected: 05/15/2025 1:55 AM Status: F Source: [facility] Order Comment: Comment [facility] [...] eGFR equation used can be found at https://www.kidney.org/gdmz-rkspc-funqgvgl. AGE(years) AVERAGE GFR 50-59 93 ml/min/1.73 square meters Note:This result is normalized to 1.73 square meter body surface area. Height and weight are not factored. LAB L400.2100 Calcium 8.00 Low 8.8-10.5 mg/dL Performed By: #### L400.2500 , L400.0152, L400.5100 #### Main Laboratory ([facility]) [address] [place] [address] Regan Sahni MD TRIGLYCERIDES Collected: 05/15/2025 1:55 AM Status: F Source: [facility] Order Comment: Comment [facility] monitoring Is Patient Fasting? Unknown TYPE CODE TESTS RESULT OUT OF RANGE REFERENCE UNITS LAB L400.2500 Triglycerides 115 Normal <150 mg/dL Performed By: #### L400.2500 , L400.0152, L400.5100 #### Main Laboratory ([facility]) [address] [place] [address] Regan Sahni MD MAGNESIUM Collected: 1:55 AM Status: F Source: [facility] Order Comment: Comment [facility] monitoring Is Patient Fasting? Unknown TYPE CODE TESTS RESULT OUT OF RANGE REFERENCE UNITS LAB L400.5100 Magnesium 2.1 Normal 1.8-2.5 mg/dL Performed By: #### L400.2500 , L400.0152, L400.5100 #### Main Laboratory ([facility]) [address] [place] [address] Regan Sahni MD CBC WITH DIFFERENTIAL Collected: 05/15/2025 1:55 AM Status: F Source: [facility] TYPE CODE TESTS RESULT OUT OF [...] Diff 1.9 Low 15-45 % LAB L100.1400 Crook- Auto Diff 1.4 Low 2-10 % LAB L100.1425 EOS-Auto Diff 0.2 Normal 0-6 % LAB L100.1450 Baso- Auto Diff 0.5 Normal 0-2 % LAB L100.1470 NRBC-Auto 0.0 Normal <1 /100 WBC LAB L100.1475 Abs Neut Count 20568 High 9626-6881 /cmm LAB L100.1480 Abs Lymph Count 500 Low 4864-2726 /cmm LAB L100.1485 Abs Crook Count 400 Normal 0-800 /cmm LAB L100.1490 Abs Eos Count 0 Normal 0-500 /cmm LAB L100.1495 Abs Baso Count 100 Normal 0-200 /cmm LAB L100.4300 Anisocytosis 1+ Normal Performed By: #### L100.0000 #### Main Laboratory ([facility]) [address] [place] [address] Regan Sahni MD METER GLUCOSE Collected: 11:34 PM Status: F Source: [facility] TYPE CODE TESTS RESULT OUT OF RANGE REFERENCE UNITS LAB L702.1000 Meter Glucose 143 High 70-110 mg/dl Performed By: #### L702.1000 #### Main Laboratory ([facility]) [facility] [place] [address] Regan Sahni MD VENOUS BLOOD GASES Collected: 10:42 PM Status: F Source: [facility] TYPE CODE TESTS RESULT OUT OF RANGE REFERENCE UNITS LAB L901.17984 Venous pH 7.43 High 7.31-7.41 LAB L901.69199 Venous pCO2 24 Low 41-51 mmHg LAB L901.65949 Venous pO2 44 Low 80-105 mmHg LAB L901.66144 Venous Bicarbonate 16.2 Low 23.0-28.0 mmol/L LAB L901.77278 Venous Base Excess -8 Low -2-3 mmol/L LAB L901.61208 Venous O2 Saturation 82 Low 95-98 % LAB L901.00867 Venous FiO2 35.00 Normal LAB L902.02449 ABG Draw Site Central Line Normal LAB L902.47706 ABG Device Vent Normal LAB L902.33974 Unit Notified? Yes Normal LAB L902.74072 ABG MODE AC Normal LAB L902.26841 VT 500 Normal LAB L902.66543 RR 20 Normal LAB L902.01640 PEEP 5.0 Normal Performed By: #### L901.1000 0 #### Main Laboratory ([facility]) [address] [place] [address] Regan Sahni MD CBC WITHOUT DIFFERENTIAL Collected: 07/2025 10:10 PM Status: F Source: [facility] TYPE CODE TESTS RESULT OUT OF [...] Performed By: #### L100.0050 #### Main Laboratory ([facility]) [address] [place] [address] Regan Sahni MD BASIC METABOLIC PANEL,FASTING Collected: 05/14/2025 9 :42 PM Status: F Source: [facility] TYPE CODE TESTS RESULT OUT OF [...] eGFR equation used can be found at https://www.kidney.org/ubep-jhuvx-xkvfthkv. AGE(years) AVERAGE GFR 50-59 93 ml/min/1.73 square meters Note:This result is normalized to 1.73 square meter body surface area. Height and weight are not factored. LAB L400.2100 Calcium 7.70 Low 8.8-10.5 mg/dL Performed By: #### L400.0202 #### Main Laboratory ([facility]) [address] [place] [address] Regan Sahni MD EKG MONITORING Observed: 05/14/2025 6:47 PM Status: F Source: [facility] Patient: DIONNA CONCEPCION [address] : 1975 [place], [place] [address] Location: ICU [phone] Unit #: [id number] Ordering Phys: Jack Miller MD EKG Monitoring [...] : 598 ms Sinus tachycardia with short OK Nonspecific ST and T wave abnormality Abnormal ECG Confirmed by Fransisco Linares ([id number]) on 05/14/2025 6:46:45 PM Referred By: Jack Melara Exam Date/Time May 13 2025 21:19:32 Confirmed By:Fransisco Linares Dictated by: Fransisco Linares MD on 05/13/252118 Transcribed by: Spotie M-AT on 05/14/251845 Report Signed by: Fransisco Linares MD on 05/14/251846 VENOUS BLOOD GASES Collected: 05/14/2025 5:42 PM Sta tus: F Source: [facility] TYPE CODE TESTS RESULT OUT OF RANGE REFERENCE UNITS LAB L901.46357 Venous pH 7.40 Normal 7.31-7.41 LAB L901.90191 Venous pCO2 26 Low 41-51 mmHg LAB L901.32125 Venous pO2 42 Low 80-105 mmHg LAB L901.92858 Venous Bicarbonate 16.2 Low 23.0-28.0 mmol/L LAB L901.85147 Venous Base Excess -9 Low -2-3 mmol/L LAB L901.87256 Venous O2 Saturation 79 Low 95-98 % LAB L901.41721 Venous FiO2 0.40 Normal LAB L902.99716 ABG Draw Site Central Line Normal LAB L902.77046 ABG Device Vent Normal LAB L902.76169 Unit Notified? Yes Normal LAB L902.05550 ABG MODE AC Normal LAB L902.42111 VT 500 Normal LAB L902.53688 RR 20 Normal LAB L902.14849 PEEP 5.0 Normal Performed By: #### L901.1000 0 #### Main Laboratory ([facility]) [address] [place] [address] Regan Sahni MD CONSULTATION - CRITICAL CARE Observed: 0 05/14/2025 5:42 PM Status: F Source: [facility] Medical Records Patient: DIONNA CONCEPCION [address] : 1975 [place], [place] [address] Location: ICU [phone] Unit #: [id number] Consultation - Critical Care Chel Cleveland [facility] Service Date: 05/14/25 ADDENDUM: Patient is seen and examined at the bed side. Agree with Chel Cleveland [facility] plan. This is a 49-year-old male patient with significant past medical history of ischemic CVA, alcohol abuse brought to the ER with altered mental status. He was found to have a subacute right MCA infarct on 05/12. Patient became tachypneic, tachycardic, febrile [place] [address]. He was started on Unasyn by infectious [...] cultures GI consulted for ERCP GS following [facility] protocol Versed for sedation, fentanyl as needed [...] 10 Mg Tab) 10 mg PO DAILY [facility] Stop: 08/19/25 09:01 Last Admin: 05/13/25 08:48 Dose: 10 mg Aspirin (Aspirin Chw 81 Mg Tab) 81 mg PO DAILY [facility] Stop: 08/19/25 09:01 Last Admin: 05/13/25 08:09 [...] Mg/0.4 Ml Syr) 40 mg SC DAILY [facility] Stop: 08/19/25 09:01 Last Admin: 05/13/25 08:09 Dose: 40 mg Ethyl Alcohol (Nasal Antiseptic (Nozin Nasal Jewelry Cutter) 1 Ampule) 1 each BNOS BID [facility] Stop: 08/20/25 09:01 Last Admin: 05/13/25 21:14 Dose: 1 each Folic Acid (Folic Acid 1 Mg Tab) 1 mg PO DAILY [facility] Stop: 08/21/25 09:01 Sodium Chloride (Ns) 1,000 mls @ 100 mls/hr IV DIRECTED RENAN Stop: 08/20/25 06:16 Last Admin: 05/13/25 17:58 Dose: 100 mls/hr Ampicillin Sodium/Sulbactam (Sodium 3 gm/ Sodium Chloride) 100 mls @ 200 mls/hr IVPB Q6H [facility] Stop: 05/21/25 00:01 Last Infusion: 05/14/25 00:22 Dose: Infused Lactobacillus Rhamnosus (Lactobacillus Rhamnosus (Gg) 1 Ea Cap) 1 ea PO DAILY [facility] Stop: 06/13/25 09:01 Lorazepam (Lorazepam 1 Mg [...] 1 Each Tab) 1 tab PO DAILY [facility] Stop: 08/21/25 09:01 Ondansetron HCl (Ondansetron 4 [...] % (Manual) 4.0 L Abs Neuts (Manual) 59597 H Abs Lymphs (Manual) 1548 Abs Monocytes [...] Color Urine Appearance Urine pH Ur Specific [place] Urine Protein Urine Glucose (UA) Urine Ketones [...] Appearance Cloudy Urine pH 7.0 Ur Specific [place] 1.021 Urine Protein 20 mg/dl Urine Glucose [...] Color Urine Appearance Urine pH Ur Specific [place] Urine Protein Urine Glucose (UA) Urine Ketones [...] Color Urine Appearance Urine pH Ur Specific [place] Urine Protein Urine Glucose (UA) Urine Ketones [...] WO Routine 05/13/25 12:43 US Abdomen Complete 69[address] Urgent Assessment AND Plan (1) Sepsis: Qualifiers: [...] GLUCOSE Collected: 5:12 PM Status: F Source: [facility] TYPE CODE TESTS RESULT OUT OF RANGE REFERENCE UNITS LAB L702.1000 Meter Glucose 152 High 70-110 mg/dl Performed By: #### L702.1000 #### Main Laboratory ([facility]) [address] [place] [address] Regan Sahni MD LACTIC ACID Collected: 5 4:51 PM Status: F Source: [facility] TYPE CODE TESTS RESULT OUT OF RANGE REFERENCE UNITS LAB L401.4160 Lactic Acid 1.2 Normal 0.5-2.0 mmol/L Performed By: #### L401.4160 #### Main Laboratory ([facility]) [address] [place] [address] Regan Sahni MD PROCEDURE NOTE - GENERAL Observed: 05/14 4:05 PM Status: F Source: [facility] Medical Records Patient: DIONNA CONCEPCION [address] : 1975 [place], [place] [address] Location: ICU [phone] Unit #: [id number] Procedure Note - General Nathan Ramos (ICU) TRUCKING CONTRACTOR Service Dt/Tm: 05/14/25 1604 Date of Procedure: 05/14/25 Pre-Procedure Diagnosis: [Septic shock] Post-Procedure Diagnosis: Same Performing Physician: Nathan Ramos (ICU), TRUCKING CONTRACTOR Was Director Of Teenage Activities Used: No Procedure Performed: Right IJ Central Line Placement Findings: Post-Procedure Diagnosis Confirmed Type of Anesthesia: Local Estimated Blood Loss: <5 ml Medications: [Lidocaine 1%] Disposition of Specimen: None Complications: None Consent: The risks, benefits and alternatives to the procedure were explained in detail. The patient/patient's sales representative groceries demonstrated understanding and consented for the procedure. [...] Observed: 05/14/2025 3:50 PM Status: F Source: [facility] Medical Records Patient: DIONNA CONCEPCION [address] : 1975 [place], [place] [address] Location: ICU [phone] [facility] #: [id number] [id number] Status Note/Update Nathan FonsecaICU) EMMA Service Dt/Tm: 05/14/25 3807 Note: Worsening septic shock in the setting [...] Observed: 07/2025 3:03 PM Status: F Source: [facility] Case Management Patient: DINONA CONCEPCION[address] : 1975 [place], [place] [address] Location: ICU [phone] Unit #: [id number] Case Management Daily Note Sonja Mcmahan Service Date: 05/14/25 Case Mgmt Daily Note - Plan of Care Claims Agent Right Of Way Agrees with Attending and Consult Plan: Yes - Patient Preferences AND Goals What is the patient's preference?: Services to be Determined Recommended acute discharge goals: Services to be Determined - Hospital Stay Days Day 1 Comment: 05/11 - Spoke with patient at bedside. Patient has Pavan Huynh. PCP is Pam Camara. appraiser personal property is his father, Dionna. Pharmacy is [facility]. Denies services, DME. He is independent of [...] states he has been falling at home. Claims Agent Right Of Way: Ana Snyder, RN Day 2 Comment: 05/12 - Spoke with pt. MRI completed and pending results. Neuro following. PT/OT ordered and recommended IPR. Rehab consulted to review case and waiting on response. Claims Agent Right Of Way: Stever,Shelbi N Day 3 Comment: 05/13 Dispo pending medical course. IPR following, c/s placed 05/12. MRI B (-) for acute CVA. WBC 42.9. Lactic 3.7. BC/UA/Sputum Cx. IV Rocephin/IVF. PT/OT. Claims Agent Right Of Way: Jimena Carcamo, RN Day 4 Comment: 05/14: Patient transferred to ICU overnight. Intubated. PEEP 5. FiO2 40%. Propofol. Versed. Levo. Vaso. IVP Solu Cortef QID. Seizure precautions. WBC 36.5. 05/13 blood cultures pending. IV unasyn Q6. ID following. MRCP today. Surgery following. SW d/t alcohol abuse. Needs TBD pending medical medical course. Claims Agent Right Of Way: Sonja Mcmahan - Respiratory Equipment Does the [...] Observed: 025 2:58 PM Status: F Source: [facility] Agency Cashier Patient: DIONNA CONCEPCION [address] : 1975 [place], [place] [address] Location: ICU [phone] Unit #: [id number] Social Work Daily Note Yeimy SALCEDO, PSYCH SOCIAL WORKER Service Date: 05/14/25 Daily Note - * Psychosocial Assessment * I have reviewed nursing and case management psychosocial information.: Yes - * Hospital Stay Days * Day 1 Note: 05/14/2025: c/s for Substance Abuse Screening. [place] Jose Rauletter. CIWA. +tox for cannabinoids on admission. Hx of alcohol abuse. Enecphalopathy. Pt intubated overnight. Agency Cashier to follow peripherally to discuss with pt when medically appropriate. Therapist Phys: Yeimy Shah MSW, PSYCH SOCIAL WORKER - * Requested Intvs/Referrals * Therapist Phys I Referrals: Substance Abuse Screening - Community Services/Interventions Substance Use Screening: Initiated - * HEALTHCARE DECISIONS * Living Will: Unknown Durable Power of Exchange Engineer for Health Care: No Directive, No SS Referral [facility] DNR Comfort Care: No Directive, No SS Referral [facility] DNR Comfort Care Arrest: No Directive, No SS Referral Entered by: DENISSE Abreu, KARLA on 05/14/25 1139 Report Signed by: Yeimy Shah on 05/14/25 1458 <<Signature on File>> <Electronically signed by KARLA Ellis> Report Signed by: on BASIC METABOLIC,NON-FASTING Collected: 05/14/2025 1:44 PM Status: F Source: [facility] TYPE CODE TESTS RESULT OUT OF [...] eGFR equation used can be found at https://www.kidney.org/thbv-mwqdu-durwzvha. AGE(years) AVERAGE GFR 50-59 93 ml/min/1.73 square meters Note:This result is normalized to 1.73 square meter body surface area. Height and weight are not factored. LAB L400.2100 Calcium 7.80 Low 8.8-10.5 mg/dL Performed By: #### L400.5100 , L400.0152 #### Main Laboratory ([facility]) [address] [facility] [place] [address] Regan Sahni MD MAGNESIUM Collected: 5 1:44 PM Status: F Source: [facility] TYPE CODE TESTS RESULT OUT OF RANGE REFERENCE UNITS LAB L400.5100 Magnesium 1.9 Normal 1.8-2.5 mg/dL Performed By: #### L400.5100 , L400.0152 #### Main Laboratory ([facility]) [address] [place] [address] Regan Sahni MD LACTIC ACID Collected: 5 1:02 PM Status: F Source: [facility] TYPE CODE TESTS RESULT OUT OF RANGE REFERENCE UNITS LAB L401.4160 Lactic Acid 2.3 High alert 0.5-2.0 mmol/L Result Comment: Critical Res ult S_LAC:2.3 Called to and read back by: BERNICE BRYANT RN at: 05/14/2025 13:45:54 by:PMAMST Performed By: #### L401.4160 #### Main Laboratory ([facility]) [address] [place] [address] Regan Sahni MD ARTERIAL BLOOD GAS Collected: 5 12:54 PM Status: F Source: [facility] TYPE CODE TESTS RESULT OUT OF RANGE REFERENCE UNITS LAB L901.23044 pH 7.42 Normal 7.35-7.45 LAB L901.15382 PCO2 25 Low 35-45 mmHg LAB L901.35029 PO2 82 Normal 80-105 mmHg LAB L901.31440 HCO3 16.1 Low 22-26 mmol/L LAB L901.98826 Base Excess -8 Low -2-3 mmol/L LAB L901.50364 O2 Saturation 97 Normal 95-98 % LAB L901.30858 ABG Drawn By Daryl Gruber Normal LAB L902.25110 ABG Draw Site L Radial Normal LAB L902.83932 ABG Device Vent Normal LAB L902.82663 FIO2 0.40 Normal LAB L902.05514 Unit Notified? Yes Normal LAB L902.93146 ABG MODE AC Normal LAB L902.82843 VT 500 Normal LAB L902.54507 RR 20 Normal LAB L902.11449 PEEP 5.0 Normal Performed By: #### L901.0000 0 #### Main Laboratory ([facility]) [address] [place] [address] Regan Sahni MD METER GLUCOSE Collected: 11:07 AM Status: F Source: [facility] TYPE CODE TESTS RESULT OUT OF RANGE REFERENCE UNITS LAB L702.1000 Meter Glucose 77 Normal 70-110 mg/dl Performed By: #### L702.1000 #### Main Laboratory ([facility]) [address] [place] [address] Regan Sahni MD XR CHEST 1 VIEW PORTABLE Observed: 05/14 10:05 AM Status: F Source: [facility] Radiology Department Patient: DIONNA CONCEPCION [address] : 1975 Sex: Mirta [place] [address] Location: ICU [phone] Unit #: [id number] Ordering Phys: Nathan Ramos (ICU) TRUCKING CONTRACTOR Exam Date: 05/14/25 Exam: MAIN XR Chest [...] GAS Collected: 9:41 AM Status: F Source: [facility] TYPE CODE TESTS RESULT OUT OF RANGE REFERENCE UNITS LAB L901.11727 pH 7.45 Normal 7.35-7.45 LAB L901.83255 PCO2 18 Low alert 35-45 mmHg LAB L901.14579 PO2 96 Normal 80-105 mmHg LAB L901.13859 HCO3 12.3 Low 22-26 mmol/L LAB L901.31543 Base Excess -12 Low -2-3 mmol/L LAB L901.49844 O2 Saturation 98 Normal 95-98 % LAB L901.59180 ABG Drawn By Daryl Gruber Normal LAB L902.72960 ABG Draw Site L Radial Normal LAB L902.40948 ABG Device Vent Normal LAB L902.56477 FIO2 0.40 Normal LAB L902.89767 Unit Notified? Yes Normal LAB L902.01272 ABG MODE AC Normal LAB L902.73269 VT 450 Normal LAB L902.75227 RR 16 Normal LAB L902.43613 PEEP 5.0 Normal Performed By: #### L901.0000 0 #### Main Laboratory ([facility]) [address] [place] [address] Regan Sahni MD MRI GALLBLADDER W/O CONTRAST Observed: 0 05/14/2025 8:51 AM Status: F Source: [facility] Radiology Department Patient: DIONNA CONCEPCION [address] : 1975 Sex: [place] [address] Location: [facility] [phone] Unit #: [id number] Ordering Phys: Emeka Acosta MD Exam Date: [...] ACID Collected: 8:33 AM Status: F Source: [facility] TYPE CODE TESTS RESULT OUT OF RANGE REFERENCE UNITS LAB L401.4160 Lactic Acid 3.5 High alert 0.5-2.0 mmol/L Result Comment: Critical Res ult S_LAC:3.5 Called to and read back by: SILVINA JUNG RN at: 05/14/2025 09:28:53 by:PMAMST Performed By: #### L401.4160 #### Main Laboratory ([facility]) [address] [place] [address] Regan Sahni MD US GALLBLADDER (RUQ) Observed: 6:53 AM Status: F Source: [facility] Radiology Department Patient: DIONNA CONCEPCION [address] : 1975 Sex: Mirta [place] [address] Location: [facility] [phone] Unit #: [id number] Ordering Phys: Emeka Acosta MD Exam Date: [...] Observed: 05/14/2025 6:51 AM Status: F Source: [facility] Medical Records Patient: DIONNA CONCEPCION [address] : 1975 [place], [place] [address] Location: ICU [phone] Unit #: [id number] Consultation Emeka Acosta MD Service Date: 05/14/25 [...] % (Auto) 18.6 % (15-45) 05/11/25 15:14 Crook % (Auto) 10.3 % (2-10) H 05/11/25 15:14 Eos % (Auto) 0.8 % (0-6) 05/11/25 15:14 Baso % (Auto) 0.8 % (0-2) 05/11/25 15:14 Nucleat RBC Rel Count 0.2 /100 WBC (<1) 05/11/25 15:14 Absolute Neuts (auto) 9300 /cmm (1390-3144) H 05/11/25 15:14 Absolute Lymphs (auto) 2500 /cmm (2391-3874) 05/11/25 15:14 Absolute Monos (auto) 1400 /cmm [...] 1.0 % 05/14/25 02:40 Abs Neuts (Manual) 04020 /cmm (7498-0706) H 05/14/25 02:40 Abs Lymphs (Manual) 364 /cmm (1063-0931) L 05/14/25 02:40 Abs Monocytes (Manual) 1092 [...] pH 7.0 (5.0-8.0) 05/13/25 09:16 Ur Specific [place] 1.021 (1.000-1.035) 05/13/25 09:16 Urine Protein 20 [...] WO Routine 05/13/25 12:43 US Abdomen Complete 71291 Urgent 05/14/25 03:23 CT Abd/Pelvis W/O Cont 50771 Stat CAM Tool Confusion Assessment Method (CAM [...] GAS Collected: 6:49 AM Status: F Source: [facility] TYPE CODE TESTS RESULT OUT OF RANGE REFERENCE UNITS LAB L901.73643 pH 7.41 Normal 7.35-7.45 LAB L901.87548 PCO2 24 Low 35-45 mmHg LAB L901.80398 PO2 131 High 80-105 mmHg LAB L901.31538 HCO3 14.9 Low 22-26 mmol/L LAB L901.39055 Base Excess -10 Low -2-3 mmol/L LAB L901.29562 O2 Saturation 99 High 95-98 % LAB L901.74283 ABG Drawn By Jacqueline Rico Normal LAB L902.87813 ABG Draw Site L Radial Normal LAB L902.56975 ABG Device Vent Normal LAB L902.92717 FIO2 50.00 Normal LAB L902.30813 Unit Notified? Yes Normal LAB L902.34073 ABG MODE AC Normal LAB L902.62613 VT 450 Normal LAB L902.98524 RR 16 Normal LAB L902.32351 PEEP 5.0 Normal Performed By: #### L901.0000 0 #### Main Laboratory ([facility]) [address] [place] [address] HEAD WITHOUT CONTRAST [id number] Observed: 05/14/2025 5:42 AM Status: F Source: [facility] Radiology Department Patient: DIONNA CONCEPCION [address] : 1975 Sex: [place] [address] Location: ICU [phone] Unit #: [id number] [id number] Ordering Phys: Chel Cleveland TRUCKING CONTRACTOR Exam Date: 05/14/25 Exam: CT CT Head Without Contrast 33132 Result: See Report ADDENDUM: EXAM: CT HEAD [...] at 7:49 EDT , cc: Chel Cleveland TRUCKING CONTRACTOR; Tay Camara MD Dictated by: Gordon Ayers MD on 05/14/2549 Transcribed by: Gordon Ayers MD on 05/14/2549 Report Signed by: Gordon Ayers MD on 05/14/25 0749 PROCEDURE NOTE - GENERAL Observed: 05/14 5:39 AM Status: F Source: [facility] Medical Records Patient: DIONNA CONCEPCION [address] : 1975 [place], [place] [address] Location: ICU [phone] Unit #: [id number] Procedure Note - General Emeka Acosta MD Service Dt/Tm: 05/14/25 0534 Date of Procedure: 05/14/25 Pre-Procedure Diagnosis: [obtunded, unable to protect airway] Post-Procedure Diagnosis: Same Performing Physician: Emeka Acosta MD Was Director Of Teenage Activities Used: No Procedure Performed: Intubation videolaryngoscopy 3 [...] Report Signed by: on CT ABD/PELVIS W/CONTRAST [id number] Observed: 05/14/2025 5:35 AM Status: F Source: [facility] Radiology Department Patient: DIONNA CONCEPCION [address] : 1975 Sex: [place], [place] [address] Location: ICU [phone] [facility] #: [id number] [id number] Ordering Phys: Chel Cleveland CNP Exam Date: 05/14/25 Exam: CT CT Abd/Pelvis W/Contrast [id number] Result: See Report HISTORY: acute liver failure, [...] 8:31 EDT Reading Location ID and State: [facility] / [place] Tel , Service support , cc: Chel Cleveland TRUCKING CONTRACTOR; Tay Camara MD Dictated by: Pinky Plascencia MD on 05/14/25830 Transcribed by: Pinky Plascencia MD on 05/14/25830 Report Signed by: Pinky Plascencia MD on 05/14/25830 SPUTUM CULTURE/ SMEAR Observed: 05/14/20 5:30 AM Status: F Source: [facility] Gram stain result Few Segmented WBC's [...] Performed By: #### M130.0000 #### Main Laboratory ([facility]) [address] [place] [address] Regan Sahni MD XR CHEST 1 VIEW PORTABLE Observed: 05/14 5:25 AM Status: F Source: [facility] Radiology Department Patient: DIONNA CONCEPCION [address] : 1975 Sex: Mirta [place] [id number] Location: ICU [phone] Unit #: [id number] Ordering Phys: Chel Cleveland CNP Exam Date: [...] at 7:54 EDT , cc: Chel Cleveland TRUCKING CONTRACTOR; Tay Camara MD Dictated by: Gordon Ayers MD on 05/14/25753 Transcribed by: Gordon Ayers MD on 05/14/25753 Report Signed by: Gordon Ayers MD on 05/14/25753 LACTIC ACID Collected: 5:05 AM Status: F Source: [facility] TYPE CODE TESTS RESULT OUT OF RANGE REFERENCE UNITS LAB L401.4160 Lactic Acid 2.8 High alert 0.5-2.0 mmol/L Result Comment: Critical Res ult S_LAC:2.8 Called to and read back by: TIFFANY MONTAÑO RN at: 05/14/2025 05:45:49 by:SHEELA Performed By: #### L401.4160 #### Main Laboratory ([facility]) [address] [place] [address] Regan Sahni MD MRSA SCREEN, FEC Observed: 05/14/2025 4:06 AM Status: F Source: [facility] No growth of MRSA after 2 da ys. Performed By: #### M170.0170 #### Main Laboratory ([facility]) [address] [place] [address] Regan Sahni MD VRE SCREEN, RAPID Collected: 4:06 AM Status: F Source: [facility] TYPE CODE TESTS RESULT OUT OF RANGE REFERENCE UNITS LAB L800.5350 Fecal VRE Screen Negative Normal Negative Result Comment: Methodology: Nucleic Acid Amplification (Polymerase Chain Reaction,PCR) Performed By: #### L800.5350 #### Main Laboratory ([facility]) [address] [place] [address] ABD/PELVIS W/O CONT [id number] Observed: 0 05/14/2025 3:25 AM Status: F Source: [facility] Radiology Department Patient: DIONNA CONCEPCION [address] : 1975 Sex: Mirta [place] [address] Location: ICU [phone] Unit #: [id number] Ordering Phys: Chel Cleveland [facility] Exam Date: 05/14/25 Exam: CT CT Abd/Pelvis W/O Cont [id number] Result: See Report ADDENDUM: EXAM: CT ABDOMEN [...] at 5:14 EDT , cc: Chel Cleveland TRUCKING CONTRACTOR; Tay Camara MD Dictated by: Gordon Ayers MD on 05/14/25513 Transcribed by: Gordon Ayers MD on 05/14/25513 Report Signed by: Gordon Ayers MD on 05/14/25513 XR ABDOMEN 1 VIEW KUB Observed: 05/14/20 3:05 AM Status: F Source: [facility] Radiology Department Patient: DIONNA CONCEPCION. : 1975 Sex: Mirta [place], [place] [address] Location: ICU [phone] Unit #: [id number] Ordering Phys: Chel Cleveland CNP Exam Date: [...] Observed: 05/14/2025 2:55 AM Status: F Source: [facility] Medical Records Patient: DIONNA [address]acie. : 1975 [place], [place] [address] Location: [phone] Unit #: [id number] Status Note/Update Jeremiah Chavez MD Service Dt/Tm: [...] Collected: 05/14/2025 2:40 AM Status: F Source: [facility] TYPE CODE TESTS RESULT OUT OF [...] eGFR equation used can be found at https://www.kidney.org/kcxi-neszb-tganvfpk. AGE(years) AVERAGE GFR 50-59 93 ml/min/1.73 square meters Note:This result is normalized to 1.73 square meter body surface area. Height and weight are not factored. LAB L400.2100 Calcium 8.50 Low 8.8-10.5 mg/dL Performed By: #### L400.5100 , L400.0302, L400.0152 #### Main Laboratory ([facility]) [address] [facility] [place] [address] Regan Sahni MD HEPATIC FUNCTION PANEL (LIVER) Collecte d: 05/14/2025 2:40 AM Status: F Source: [facility] TYPE CODE TESTS RESULT OUT OF [...] L400.5100 , L400.0302, L400.0152 #### Main Laboratory ([facility]) [address] [place] [place] [address] Regan Sahni MD MAGNESIUM Collected: 2:40 AM Status: F Source: [facility] TYPE CODE TESTS RESULT OUT OF RANGE REFERENCE UNITS LAB L400.5100 Magnesium 1.4 Low 1.8-2.5 mg/dL Performed By: #### L400.5100 , L400.0302, L400.0152 #### Main Laboratory ([facility]) [address] [place], [place] [address] [place] [address] Regan Sahni MD CBC WITH DIFFERENTIAL Collected: 05/14/2025 2:40 AM Status: F Source: [facility] TYPE CODE TESTS RESULT OUT OF [...] #### L100.2000 , L100.0000 #### Main Laboratory ([facility]) [address] [place], [place] [address] [place] [address] Regan Sahni MD MANUAL DIFF Collected: 05/14/2025 2:40 AM Status: F Source: [facility] TYPE CODE TESTS RESULT OUT OF RANGE REFERENCE UNITS LAB L100.2200 Neutrophils 90.0 High 40-70 % LAB L100.2300 Bands 5.0 Normal 2-6 % LAB L100.2400 Lymphocytes 1.0 Low 15-45 % LAB L100.2500 Monocytes 3.0 Normal 2-10 % LAB L100.2800 Metamyelocytes 1.0 Normal % LAB L100.3510 Abs Neut Count 15702 High 5849-1316 /cmm LAB L100.3515 Abs Lymph Count 364 Low 1523-8384 /cmm LAB L100.3520 Abs Crook Count 1092 High 0-800 /cmm LAB L100.3525 Abs Eos Count 0 Normal 0-500 /cmm LAB L100.3530 Abs Baso Count 0 Normal 0-200 /cmm Performed By: #### L100.2000 , L100.0000 #### Main Laboratory ([facility]) [address] [place] [address] Regan Sahni MD LACTIC ACID Collected: 5 1:12 AM Status: F Source: [facility] TYPE CODE TESTS RESULT OUT OF RANGE REFERENCE UNITS LAB L401.4160 Lactic Acid 2.7 High alert 0.5-2.0 mmol/L Result Comment: Critical Res ult S_LAC:2.7 Called to and read back by: ANA MASTERS RN at: 05/14/2025 02:39:39 by:KACY Performed By: #### L401.4160 #### Main Laboratory ([facility]) [facility] [place] [address] Regan Sahni MD LACTIC ACID Collected: 5 10:02 PM Status: F Source: [facility] TYPE CODE TESTS RESULT OUT OF RANGE REFERENCE UNITS LAB L401.4160 Lactic Acid 3.5 High alert 0.5-2.0 mmol/L Result Comment: Critical Res ult S_LAC:3.5 Called to and read back by: RHODA TSANG RN at: 05/13/2025 22:31:05 by:SHEELA Performed By: #### L401.4160 #### Main Laboratory ([facility]) [address] [place] [address] Regan Sahni MD LACTIC ACID Collected: 5 6:03 PM Status: F Source: [facility] TYPE CODE TESTS RESULT OUT OF RANGE REFERENCE UNITS LAB L401.4160 Lactic Acid 3.0 High alert 0.5-2.0 mmol/L Result Comment: Critical Res ult S_LAC:3.0 Called to and read back by: KEVIN CROOKS RN at: 05/13/2025 18:46:16 by:MSWOOD Performed By: #### L401.4160 #### Main Laboratory ([facility]) [address] [place] [address] Regan Sahni MD PROGRESS NOTE - HOSPITALIST Observed: 5:27 PM Status: F Source: [facility] Medical Records Patient: DIONNA CONCEPCION [address] : 1975 [place], [place] [address] Location: [phone] Unit #: [id number] Progress Note - Hospitalist Rose Sanchez MD [...] Observed: 2024 5:10 PM Status: F Source: [facility] Medical Records Patient: DIONNA CONCEPCION [address] : 1975 [place], [place] [address] Location: [phone] Unit #: [id number] Progress Note Neurology Nic Lewis MD Service [...] red flags or concerning signs/ symptoms for CUSTOMER ACCOUNT EXECUTIVE infection or seizures, will defer EEG and [...] Inpatient follow-up with [facility] physician please call [facility] . This is not an outpatient service. Post hospital discharge, please contact hospital directly. Please do not communicate with [facility] physicians via secure chat. If you have any questions, Please contact [facility]. Please call or reconsult our service if [...] % (Manual) 4.0 L Abs Neuts (Manual) 50362 H Abs Lymphs (Manual) 1548 Abs Monocytes [...] Cloudy Urine pH 7.0 7.0 Ur Specific [place] >=1.050 1.021 Urine Protein 10 mg/dL 20 [...] Observed: 06/2025 4:16 PM Status: F Source: [facility] Case Management Patient: DIONNA CONCEPCION [address] : 1975 [place], [place] [address] Location: [address] [place] [address] Unit #: [id number] Case Management Daily Note Jimena Carcamo RN Service Date: 05/13/25 Case Mgmt Daily Note - Plan of Care Claims Agent Right Of Way Agrees with Attending and Consult Plan: Yes - Patient Preferences AND Goals What is the patient's preference?: Services to be Determined Recommended acute discharge goals: Services to be Determined - Hospital Stay Days Day 1 Comment: 05/11 - Spoke with patient at bedside. Patient has Pavan Huynh. PCP is Pam Camraa. appraiser personal property is his father, Dionna. Pharmacy is [facility]. Denies services, DME. He is independent of [...] states he has been falling at home. Claims Agent Right Of Way: Ana Snyder, RN Day 2 Comment: 05/12 - Spoke with pt. MRI completed and pending results. Neuro following. PT/OT ordered and recommended IPR. Rehab consulted to review case and waiting on response. Claims Agent Right Of Way: Shelbi Jackson N Day 3 Comment: 05/13 Dispo pending medical course. IPR following, c/s placed 05/12. MRI B (-) for acute CVA. WBC 42.9. Lactic 3.7. BC/UA/Sputum Cx. IV Rocephin/IVF. PT/OT. Claims Agent Right Of Way: Jimena Carcamo RN - Respiratory Equipment Does [...] Collected: 5 3:03 PM Status: F Source: [facility] TYPE CODE TESTS RESULT OUT OF RANGE REFERENCE UNITS LAB L400.1500 Potassium 3.5 Low 3.6-5.0 mEq/L Performed By: #### L400.1500 #### Main Laboratory ([facility]) [address] [place] [address] Regan Sahni MD LACTIC ACID Collected: 1:58 PM Status: F Source: [facility] TYPE CODE TESTS RESULT OUT OF RANGE REFERENCE UNITS LAB L401.4160 Lactic Acid 2.5 High alert 0.5-2.0 mmol/L Result Comment: Critical Res ult S_LAC:2.5 Called to and read back by: GLENN RUBI RN at: 05/13/2025 14:37:50 by:GABRIELA Performed By: #### L401.4160 #### Main Laboratory ([facility]) [address] [place] [address] Regan Sahni MD US ABDOMEN COMPLETE 34917 Observed: 06/2025 12:46 PM Status: F Source: [facility] Radiology Department Patient: DIONNA CONCEPCION [address] : 1975 Sex: Mirta [place] [address] Location: [address] [place] [address] Unit #: [id number] Ordering Phys: Marc Serna (ID) Exam Date: 05/13/25 Exam: US US Abdomen Complete [id number] Result: See Report EXAM: US abdomen, complete. [...] ACID Collected: 10:14 AM Status: F Source: [facility] TYPE CODE TESTS RESULT OUT OF RANGE REFERENCE UNITS LAB L401.4160 Lactic Acid 3.7 High alert 0.5-2.0 mmol/L Result Comment: Critical Res ult S_LAC:3.7 Called to and read back by: KEVIN CROOKS RN at: 05/13/2025 11:25:08 by:GABRIELA Performed By: #### L401.4160 #### Main Laboratory ([facility]) [address] [place] [address] CHEST ABDOMEN PELVIS WO Observed: 06/2025 9:51 AM Status: F Source: [facility] Radiology Department Patient: DIONNA CONCEPCION [address] : 1975 Sex: [place] [address] Location: [phone] Unit #: [id number] [id number] Ordering Phys: Rose Sanchez MD Exam Date: [...] 05/13/2025 9: 16 AM Status: F Source: [facility] Order Comment: Urine Source Urine, Catherized TYPE CODE TESTS RESULT OUT OF RANGE REFERENCE UNITS LAB L300.3300 Color Yellow Normal LAB L300.3400 Appearance Cloudy Normal LAB L300.3500 Glucose 30 mg/dL Normal Negative LAB L300.3550 Protein 20 mg/dl Normal Negative LAB L300.3700 Bilirubin 2 mg/dL Normal Negative LAB L300.3750 Urobilinogen >10.0 mg/dl Normal 0.2-1.0 LAB L300.3775 pH 7.0 Normal 5.0-8.0 LAB L300.3800 Specific [place] 1.021 Normal 1.000-1.035 LAB L300.4100 Hemoglobin >1.0 [...] Performed By: #### L300.3000 #### Main Laboratory ([facility]) [address] [place] [address] Regan Sahni MD URINE CULTURE, REFLEX Observed: 05/13/20 9:16 AM Status: F Source: [facility] No growth after 2 days. Performed By: #### M120.0050 #### Main Laboratory ([facility]) [address] [place], [place] [address] [place] [address] Regan Sahni MD DRUG SCREEN URINE Collected: 05/13/2025 9:16 AM Stat us: F Source: [facility] TYPE CODE TESTS RESULT OUT OF [...] Performed By: #### L402.4000 #### Main Laboratory ([facility]) [address] [place] [address] eRgan Sahni MD CBC WITHOUT DIFFERENTIAL Collected: 06/2025 8:05 AM Status: F Source: [facility] TYPE CODE TESTS RESULT OUT OF [...] Performed By: #### L100.0050 #### Main Laboratory ([facility]) [address] [place] [address] Regan Sahni MD XR CHEST 1 VIEW PORTABLE Observed: 05/13 7:43 AM Status: F Source: [facility] Radiology Department Patient: DIONNA CONCEPCION [address] : 1975 Sex: [place], [place] [address] Location: [phone] Unit #: [id number] Ordering Phys: Rose Sanchez MD Exam Date: [...] ACID Collected: 6:55 AM Status: F Source: [facility] TYPE CODE TESTS RESULT OUT OF RANGE REFERENCE UNITS LAB L401.4160 Lactic Acid 2.5 High alert 0.5-2.0 mmol/L Result Comment: Critical Res ult S_LAC:2.5 Called to and read back by: GLENN RUBI RN at: 05/13/2025 07:30:22 by:GABRIELA Performed By: #### L401.4160 #### Main Laboratory ([facility]) [address] [place] [id number] Regan Sahni MD BLOOD CULTURE Observed: 05/13/2025 6:54 AM Status: F Source: [facility] No growth after 5 days. Performed By: #### M110.0050 #### Main Laboratory ([facility]) [address] [place] [address] Regan Sahni MD BLOOD CULTURE Observed: 05/13/2025 6:44 AM Status: F Source: [facility] No growth after 5 days. Performed By: #### M110.0050 #### Main Laboratory ([facility]) [address] [place] [id number] Regan Sahni MD STATUS NOTE/UPDATE Observed: 05/13/2025 6:08 AM Status: F Source: [facility] Medical Records Patient: DIONNA CONCEPCION [address] : 1975 [place], [place] [address] Location: [phone] Unit #: [id number] Status Note/Update Jeremiah Chavez MD Service Dt/Tm: [...] Collected: 05/13/2025 4:55 AM Status: F Source: [facility] TYPE CODE TESTS RESULT OUT OF [...] L100.0000 , L100.2000, L150.0585 #### Main Laboratory ([facility]) [address] [place] [address] Regan Sahni MD MANUAL DIFF Collected: 05/13/2025 4:55 AM Status: F Source: [facility] TYPE CODE TESTS RESULT OUT OF RANGE REFERENCE UNITS LAB L100.2200 Neutrophils 94.0 High 40-70 % LAB L100.2300 Bands 2.0 Normal 2-6 % LAB L100.2400 Lymphocytes 4.0 Low 15-45 % LAB L100.3200 Nucleated Red Blood Cells 1 Normal /100 WBC LAB L100.3510 Abs Neut Count 84028 High 6695-3601 /cmm LAB L100.3515 Abs Lymph Count 1548 Normal 4614-5298 /cmm LAB L100.3520 Abs Crook Count 0 Normal 0-800 /cmm LAB L100.3525 Abs Eos Count 0 Normal 0-500 /cmm LAB L100.3530 Abs Baso Count 0 Normal 0-200 /cmm Performed By: #### L100.0000 , L100.2000, L150.0585 #### Main Laboratory ([facility]) [address] [place] [address] Regan Sahni MD SLIDE REVIEW BY PATHOLOGIST Collected: 05/13/2025 4:5 5 AM Status: F Source: [facility] TYPE CODE TESTS RESULT OUT OF RANGE REFERENCE UNITS LAB L150.0585 Slide Review by Pathologist * Normal Result Comment: Absolute gra nulocytosis consistent with response to infection, toxins, tissue injury, stresses or hemorrhage. Slide reviewed by Dr Dottie Sahni on 05/15/25. Performed By: #### L100.0000 , L100.2000, L150.0585 #### Main Laboratory ([facility]) [address] [place] [address] Regan Sahni MD BASIC METABOLIC,NON-FASTING Collected: 05/13/2025 4:54 AM Status: F Source: [facility] TYPE CODE TESTS RESULT OUT OF [...] eGFR equation used can be found at https://www.kidney.org/ezcu-csgnw-xphrqftk. AGE(years) AVERAGE GFR 50-59 93 ml/min/1.73 square meters Note:This result is normalized to 1.73 square meter body surface area. Height and weight are not factored. LAB L400.2100 Calcium 9.70 Normal 8.8-10.5 mg/dL Performed By: #### L400.4475 , L400.5100, L400.0052, L404.6500, L400.0152, L400.0040 #### Main Laboratory ([facility]) [address] [place] [address] Regan Sahni MD MAGNESIUM Collected: 4:54 AM Status: F Source: [facility] TYPE CODE TESTS RESULT OUT OF RANGE REFERENCE UNITS LAB L400.5100 Magnesium 1.7 Low 1.8-2.5 mg/dL Performed By: #### L400.4475 , L400.5100, L400.0052, L404.6500, L400.0152, L400.0040 #### Main Laboratory ([facility]) [address] [place] [address] Regan Sahni MD PROCALCITONIN Collected: 05/13/2025 4:54 AM Status: F Source: [facility] TYPE CODE TESTS RESULT OUT OF [...] procalcitonin elevations. *Sindi et al., Lancet 2010;375: DOI:10.1016/S9042-1822 [phone] *Ebony Kumar et al., Arch Nitric Acid Concentrator Operator Med 2011;171:8362-5043 Performed By: #### L400.4475 , L400.5100, L400.0052, L404.6500, L400.0152, L400.0040 #### Main Laboratory ([facility]) [address] [place] [address] Regan Sahni MD LIPASE Collected: 5 4:54 AM Status: F Source: [facility] TYPE CODE TESTS RESULT OUT OF RANGE REFERENCE UNITS LAB L400.0052 Lipase 40 Normal 21-51 IU/L Performed By: #### L400.4475 , L400.5100, L400.0052, L404.6500, L400.0152, L400.0040 #### Main Laboratory ([facility]) [address] [place] [address] Regan Sahni MD AMYLASE Collected: 5 4:54 AM Status: F Source: [facility] TYPE CODE TESTS RESULT OUT OF RANGE REFERENCE UNITS LAB L400.4475 Amylase 17 Low 30-100 U/L Performed By: #### L400.4475 , L400.5100, L400.0052, L404.6500, L400.0152, L400.0040 #### Main Laboratory ([facility]) [address] [place] [address] Regan Sahni MD PREALBUMIN Collected: 4:54 AM Status: F Source: [facility] TYPE CODE TESTS RESULT OUT OF RANGE REFERENCE UNITS LAB L404.6500 Prealbumin 15.0 Low 16.0-38.0 mg/dL Performed By: #### L400.4475 , L400.5100, L400.0052, L404.6500, L400.0152, L400.0040 #### Main Laboratory ([facility]) [address] [place] [address] Regan Sahni MD RESPIRATORY PANEL ID Collected: 05/12/2025 8:50 PM S tatus: F Source: [facility] Order Comment: Patient being /is admitted [...] d 05/12/25 Testing was performed using the LED Light Sensee RP2.1, a real-time, nested multiplexed polymerase chain reaction test designed to simultaneously identify nucleic acids from 22 different viruses and bacteria associated with respiratory tract infection, including SARS-CoV-2, from a single nasopharyngeal swab (PURCHASING BUYER) specimen. LAB L805.030 Human Metapneumovirus Not Detected [...] Performed By: #### L805.000 #### Main Laboratory ([facility]) [address] [place] [address] Regan Sahni MD URINALYSIS W MICRO RFLX CULT Collected: 05/12/2025 7: 56 PM Status: F Source: [facility] Order Comment: Urine Source Urine, Kidney TYPE CODE TESTS RESULT OUT OF RANGE REFERENCE UNITS LAB L300.3300 Color Yellow Normal LAB L300.3400 Appearance Clear Normal LAB L300.3500 Glucose Negative Normal Negative LAB L300.3550 Protein 10 mg/dL Normal Negative LAB L300.3700 Bilirubin Negative Normal Negative LAB L300.3750 Urobilinogen 6 mg/dL Normal 0.2-1.0 LAB L300.3775 pH 7.0 Normal 5.0-8.0 LAB L300.3800 Specific [place] >=1.050 Normal 1.000-1.035 LAB L300.4100 Hemoglobin Negative [...] Performed By: #### L300.3000 #### Main Laboratory ([facility]) [address] [facility] [place] [address] Regan Sahni MD BASIC METABOLIC,NON-FASTING Collected: 05/12/2025 7:06 PM Status: F Source: [facility] TYPE CODE TESTS RESULT OUT OF [...] eGFR equation used can be found at https://www.kidney.org/dlsm-esiuq-myczrolw. AGE(years) AVERAGE GFR 50-59 93 ml/min/1.73 square meters Note:This result is normalized to 1.73 square meter body surface area. Height and weight are not factored. LAB L400.2100 Calcium 9.40 Normal 8.8-10.5 mg/dL Performed By: #### L400.0152 #### Main Laboratory ([facility]) [address] [place] [address] Regan Sahni MD PROGRESS NOTE - HOSPITALIST Observed: 6:06 PM Status: F Source: [facility] Medical Records Patient: DIONNA CONCEPCION [address] : 1975 [place], [place] [address] Location: [facility] [phone] Unit #: [id number] Progress Note - Hospitalist Rose Sanchez MD Service Dt/Tm: 05/12/25 223 ADDENDUM: Echo done report reviewed Ejection fraction [...] Status Ordered 05/11/25 at 1830 05/11/25 20:09 [facility] Diet Texture: Regular Fluid Restrictions?: No Discussed [...] Entered by: Rose Sanchez MD on 05/12/25 7045 Report Signed by: Rose Sanchez MD on 05/12/25 5455 <<Signature on File>> <Electronically signed by Rose Sanchez MD> Report Signed by: on CONSULTATION - TELENEUROLOGY Observed: 0 05/12/2025 5:19 PM Status: F Source: [facility] Medical Records Patient: DIONNA CONCEPCION [address] : 1975 [place], [place] [address] Location: [place] [address] Unit #: [id number] [facility] #: [id number] Consultation - Tele[facility] Amari Blunt MD Service Date: 05/12/25 [facility] Consult Services Routine Consult Follow-Up Patient Name: Dionna Concepcion Date of : 1975 Identification Number: Date of Service: 05/12/2025 17:05:59 Diagnosis ??? I63.89 - Cerebrovascular accident (CVA) due to other mechanism ([facility]) Impression 49M with a history of HTN, [...] AND hgb a1c - statin daily - PT/OT/INTRAVENOUS THERAPY NURSE - bp control per primary team, goal [...] Inpatient follow-up with [facility] physician please call [facility] at . As we are not an outpatient service for any post hospital discharge needs please contact the hospital for assistance. If you have any questions for the [facility] physicians or need to reconsult for clinical or diagnostic changes please contact us via [facility] at cc: Amari MORALEZ; Tay Camara MD; Stuart Madrid MD Dictated by: Amari Blunt MD on 05/12/251716 Entered by: Amari Blunt MD on 05/12/251716 Report Signed by: Amari MORALEZ on 05/12/251718 <<Signature on File>> <Electronically signed by Amari Blunt MD> Report Signed by: on EKG MONITORING Observed: 05/12/2025 5:19 PM Status: F Source: [facility] Patient: DIONNA CONCEPCION Danny [address] : 1975 [place] [address] Location: [facility] [phone] Unit #: [id number] Ordering Phys: Karmen Dalton PA-C EKG Monitoring [...] Linares MD on 05/11/25 1513 Transcribed by: Spotie M-AT on 05/12/251718 Report Signed by: Fransisco Linares MD on 05/12/251718 ECHOCARDIOGRAPHY Observed: 05/12/2025 2:44 PM Status: F Source: [facility] Patient: DIONNA CONCEPCION [address] : 1975 [place] [address] Location: [place] [id number] Unit #: [id number] Ordering Phys: Carol Ang MD Echocardiography Nic Peoples MD Transthoracic Echocardiography Report (TTE) Demographics Patient Name JAMEY VILLAREAL Gender Male J Patient Number [id number] Race Unknown Ethnicity Room Number ER TEMP Corporate ID Date of Study 05/12/2025 Referring Physician Carol Ang MD; Number Date of 1975 Site Medical Director ANDREW Gilman; Age 49 year(s) Interpreting Reading [...] Doppler - Max Velocity (cm/s) AV: 106 cm/s(l=355-935) Aortic Valve Area (Continuity):3.67 cm MV:60.6 cm/s(n=60-130) [...] Peoples MD on 05/12/25 0836 Transcribed by: Spotie SHANIQUA on 05/12/25 1444 Report Signed by: Nic Peoples MD on 05/12/25 1444 CASE MANAGEMENT DAILY NOTE Observed: 05/2025 1:40 PM Status: F Source: [facility] Case Management Patient: DIONNA CONCEPCION [address] : 1975 [place], [place] [address] Location: [address] [phone] Unit #: [id number] Case Management Daily Note Shelbi Jackson Service Date: 05/12/25 Case Mgmt Daily Note - Plan of Care Claims Agent Right Of Way Agrees with Attending and Consult Plan: Yes - Patient Preferences AND Goals What is the patient's preference?: Services to be Determined Recommended acute discharge goals: Services to be Determined - Hospital Stay Days Day 1 Comment: 05/11 - Spoke with patient at bedside. Patient has Pavan Huynh. PCP is Pam Camara. appraiser personal property is his father, Dionna. Pharmacy is [facility] [...] states he has been falling at home. Claims Agent Right Of Way: Ana Snyder, RN Day 2 Comment: 05/12 - Spoke with pt. MRI completed and pending results. Neuro following. PT/OT ordered and recommended IPR. Rehab consulted to review case and waiting on response. Claims Agent Right Of Way: Shelbi Jackson - Respiratory Equipment Does the [...] Collected: 05/11/2025 8:10 PM Status: F Source: [facility] TYPE CODE TESTS RESULT OUT OF RANGE REFERENCE UNITS LAB L404.6725 Hgb A1C 5.0 Normal 4.4-6.4 % LAB L404.6730 estimated Average Glucose 97 Normal mg/dL Result Comment: estimated Av erage Glucose(eAG) calculation has been modified to reflect guidelines established by the [employer] Diabetes Association. This change does not affect the %A1c,however individuals that closely monitor the eAG may notice a slight shift in their results. Performed By: #### L404.6700 #### Main Laboratory ([facility]) [address] [place] [address] Regan Sahni MD LIPID PANEL Collected: 05/11/2025 8:10 PM Status: F Source: [facility] TYPE CODE TESTS RESULT OUT OF [...] #### L404.7150 , L400.0400 #### Main Laboratory ([facility]) [address] [place] [address] Regan Sahni MD TSH REFLEX FREE T4 Collected: 8:10 PM Status: F Source: [facility] TYPE CODE TESTS RESULT OUT OF RANGE REFERENCE UNITS LAB L404.7150 TSH reflex Free T4 1.879 Normal 0.490-4.670 mcIU/mL Performed By: #### L404.7150 , L400.0400 #### Main Laboratory ([facility]) [address] [place] [address] Regan Sahni MD CONSULTATION - TELENEUROLOGY Observed: 0 05/11/2025 7:23 PM Status: F Source: [facility] Medical Records Patient: DIONNA CONCEPCION [address] : 1975 [place], [place] [address] Location: [facility] [phone] Unit #: [id number] [id number] Consultation - TeleNeurology Carol Ang MD Service Date: 05/11/25 [facility] Tele[facility] Consult Services Date of Consultation: 05/11/25 Consulting Provider: Carol Ang MD [facility] Tele[facility]urology Consult Services Stat Consult Patient Name: Dionna Concepcion Date of : 1975 Identification Number: Date of Service: 05/11/2025 17:01:34 Diagnosis: ??? I63.89 - Cerebrovascular accident (CVA) due to other mechanism ([facility]) Impression 49M with a history of HTN, [...] Inpatient follow-up with [facility] physician please call [facility] at . As we are not an outpatient service for any post hospital discharge needs please contact the hospital for assistance. If you have any questions for the [facility] physicians or need to reconsult for clinical or diagnostic changes please contact us via [facility] at . Allergies/Adverse Reactions No Known Drug [...] % (Auto) 69.5 Lymph % (Auto) 18.6 Crook % (Auto) 10.3 H Eos % (Auto) [...] Observed: 025 7:16 PM Status: F Source: [facility] Radiology Department Patient: DIONNA CONCEPCION[address]. : 1975 Sex: Mirta [place] [address] Location: [place] [address] Unit #: [id number] Ordering Phys: Carol Ang MD Exam Date: 05/11/25 Exam: CT CT Angio Head Neck WWO Result: See Report EXAM: CT ANGIOGRAPHY HEAD AND NECK WITH INTRAVENOUS CONTRAST CLINICAL INDICATION: R MCA stroke - subacute to chronic TECHNIQUE: [place]/head and neck CT angiography protocol [...] Observed: 04/2025 6:29 PM Status: F Source: [facility] Radiology Department Patient: DIONNA CONCEPCION [address] : 1975 Sex: [place] [address] Location: [place] [address] Unit #: [id number] Ordering Phys: Stuart Madrid MD Exam Date: [...] MD on 05/12/25 135 Transcribed by: Gage Ta on 05/12/25 135 Report Signed by: Gage Ta MD on 05/12/25 1351 CASE MANAGEMENT ADMISSION Observed: 04/2025 5:29 PM Status: F Source: [facility] Case Management Patient: DIONNA CONCEPCION [address] : 1975 [place], [place] [address] Location: [facility] [phone] Unit #: [id number] Case Management Admission Ana Snyder RN Service Date: 05/11/25 Case Mgmt Admission/Disch Plan - Patient Preferences AND Goals What is the patient's preference?: Services to be Determined Recommended acute discharge goals: Services to be Determined - Hospital Stay Day Day 1 Comment: 05/11 - Spoke with patient at bedside. Patient has [employer] Ambetter. PCP is Pam Camara. appraiser personal property is his father, Dionna. Pharmacy is [facility]. Denies services, DME. He is independent [...] states he has been falling at home. Claims Agent Right Of Way: Ana Snyder, RN - Demographics Current Diagnosis(s): right MCA infarct, left weakness Information Given by: Patient Primary Insurance: [employer] Amb[employer] Prescription Coverage: Yes Family/Caregiver Contact: Dionna Loving Relationship: father Does the patient have VA services?: No Does the patient have a [facility] provider?: Yes - Readmission Information Was the patient readmitted within the past 30 days?: No Where was the patient admitted from?: Home Does Patient have any Services in Place?: No - Healthcare Decisions Code Status per Patient Request (Full Code, DNRCC, DNR-CCA with Intubation, DNR- CCA no Intubation): Full Code Durable Power of Exchange Engineer for Health Care: No Directive, No SS Referral [facility] DNR Comfort Care: No Directive, No SS Referral [facility] DNR Comfort Care Arrest: No Directive, [...] No If Yes to either question, notify Agency Cashier.: No - Discharge Plan Discharge Plan Discussed [...] Entered by: Ana Snyder RN on 05/11/25 6059 Report Signed by: Ana Snyder RN on 05/11/25 0136 <<Signature on File>> <Electronically signed by Ana Snyder RN> Co-Signed by: on SOCIAL DETERMINANTS Observed: 05/11/2025 5:24 PM Status: F Source: [facility] Case Management Patient: DIONNA CONCEPCION [address] : 1975 [place], [place] [address] Location: [phone] Unit #: [id number] Social Determinants Ana Snyder RN Service Date: [...] Observed: 04/2025 3:15 PM Status: F Source: [facility] Radiology Department Patient: DIONNA CONCEPCION [address] : 1975 Sex: [place] [address] Location: [phone] Unit #: [id number] Ordering Phys: Karmen Dalton PA-C Exam Date: [...] TIME Collected: 3:14 PM Status: F Source: [facility] Order Comment: Is Patient on Coumadin (Warfarin)? Unknown TYPE CODE TESTS RESULT OUT OF RANGE REFERENCE UNITS LAB L200.0300 PT 11.6 Normal 9.6-13.3 Sec LAB L200.0400 INR 0.98 Normal 0.9-1.2 Result Comment: Standard dos e INR: 2.0-3.0 High dose INR: 2.5-3.5 Performed By: #### L200.0200 #### Main Laboratory ([facility]) [address] [place] [address] Regan Sahni MD CBC WITH DIFFERENTIAL Collected: 05/11/2025 3:14 PM Status: F Source: [facility] Order Comment: Reason for pr ocedure [...] Diff 18.6 Normal 15-45 % LAB L100.1400 Crook- Auto Diff 10.3 High 2-10 % LAB L100.1425 EOS-Auto Diff 0.8 Normal 0-6 % LAB L100.1450 Baso- Auto Diff 0.8 Normal 0-2 % LAB L100.1470 NRBC-Auto 0.2 Normal <1 /100 WBC LAB L100.1475 Abs Neut Count 9300 High 3355-2236 /cmm LAB L100.1480 Abs Lymph Count 2500 Normal 7863-7668 /cmm LAB L100.1485 Abs Crook Count 1400 High 0-800 /cmm LAB L100.1490 Abs Eos Count 100 Normal 0-500 /cmm LAB L100.1495 Abs Baso Count 100 Normal 0-200 /cmm LAB L100.4300 Anisocytosis 1+ Normal Performed By: #### L100.0000 #### Main Laboratory ([facility]) [address] [place] [address] Regan Sahni MD PROCALCITONIN Collected: 05/11/2025 3:14 PM Status: F Source: [facility] TYPE CODE TESTS RESULT OUT OF [...] procalcitonin elevations. *Sindi et al., Lancet 2010;375: DOI:10.1016/[id number] [id number] *Ebony Kumar et al., Arch Nitric Acid Concentrator Operator Med 2011;171:6779-5098 Performed By: #### L400.0040 , L400.0076, L400.5100, L400.0415, L402.2305 #### Main Laboratory ([facility]) [address] [place] [address] Regan Sahni MD COMPREHENSIVE METABOLIC PANEL Collected: 05/11/2025 3 :14 PM Status: F Source: [facility] TYPE CODE TESTS RESULT OUT OF [...] eGFR equation used can be found at https://www.kidney.org/nfrf-zfuea-xjocwvps. AGE(years) AVERAGE GFR 50-59 93 ml/min/1.73 square [...] L400.0076, L400.5100, L400.0415, L402.2305 #### Main Laboratory ([facility]) [address] [place] [address] Regan Sahni MD HS TROPONIN I PROFILE Collected: 2024 3:14 PM Status: F Source: [facility] TYPE CODE TESTS RESULT OUT OF [...] L400.0076, L400.5100, L400.0415, L402.2305 #### Main Laboratory ([facility]) [address] [place] [address] Regan Sahni MD MAGNESIUM Collected: 3:14 PM Status: F Source: [facility] TYPE CODE TESTS RESULT OUT OF RANGE REFERENCE UNITS LAB L400.5100 Magnesium 1.9 Normal 1.8-2.5 mg/dL Performed By: #### L400.0040 , L400.0076, L400.5100, L400.0415, L402.2305 #### Main Laboratory ([facility]) [address] [place] [address] Regan Sahni MD ALCOHOL Collected: 3:14 PM Status: F Source: [facility] TYPE CODE TESTS RESULT OUT OF RANGE REFERENCE UNITS LAB L402.2305 Alcohol < 0.010 Normal gm/dL Performed By: #### L400.0040 , L400.0076, L400.5100, L400.0415, L402.2305 #### Main Laboratory ([facility]) [address] [place] [address] Regan Sahni MD XR CHEST 1 VIEW PORTABLE Observed: 05/11 3:12 PM Status: F Source: [facility] Radiology Department Patient: DIONNA CONCEPCION [address] : 1975 Sex: Mirta [place] [address] Location: [phone] Unit #: [id number] Ordering Phys: Karmen Dalton PA-C Exam Date: [...] : 03/13/2025 12:26 PM Status: F Source: [facility] Order Comment: Is Patient Fa sting? [...] eGFR equation used can be found at https://www.kidney.org/pmeu-frgvy-egcnqqwj. AGE(years) AVERAGE GFR 50-59 93 ml/min/1.73 square [...] #### L400.0400 , L400.0076 #### Main Laboratory ([facility]) [address] [place] [address] Regan Sahni MD LIPID PANEL Collected: 03/13/2025 12:26 PM Status: F Source: [facility] Order Comment: Is Patient Fa sting? [...] #### L400.0400 , L400.0076 #### Main Laboratory ([facility]) [address] [place] [address] Regan Sahni MD CBC WITH DIFFERENTIAL Collected: 03/13/2025 12:26 PM Status: F Source: [facility] TYPE CODE TESTS RESULT OUT OF [...] Diff 23.6 Normal 15-45 % LAB L100.1400 Crook- Auto Diff 11.0 High 2-10 % LAB L100.1425 EOS-Auto Diff 1.6 Normal 0-6 % LAB L100.1450 Baso- Auto Diff 1.1 Normal 0-2 % LAB L100.1470 NRBC-Auto 0.2 Normal <1 /100 WBC LAB L100.1475 Abs Neut Count 9100 High 9660-8087 /cmm LAB L100.1480 Abs Lymph Count 3400 Normal 3470-4431 /cmm LAB L100.1485 Abs Crook Count 1600 High 0-800 /cmm LAB L100.1490 Abs Eos Count 200 Normal 0-500 /cmm LAB L100.1495 Abs Baso Count 200 Normal 0-200 /cmm LAB L100.4300 Anisocytosis 1+ Normal Performed By: #### L100.0000 #### Main Laboratory ([facility]) [address] [place] [address] Regan Sahni MD PSA SCREEN Collected: 5 12:26 PM Status: F Source: [facility] TYPE CODE TESTS RESULT OUT OF [...] The National Comprehensive Cancer Network(NCCN) and the Swedish Cancer Society have recommended consideration for Biopsy of Prostate in cases with PSA values between 2.6 ng/mL and 4.0 ng/mL regardless of age and race(2). Reference: (1)[facility] Vol 31,No.4,Page 1-10,2005 (2)NCCN Practice Guidelines in [...] Performed By: #### L401.0610 #### Main Laboratory ([facility]) [address] [place] [address] Regan Sahni MD ALLERGIES DATE TYPE / CODE NAME / CODE REACTION SEVERITY SOURCE 05/11/2025 Allergy/[id number] 6(SNOMED CT) No Known Drug Allergies [facility] ENCOUNTERS ADMIT/DISCHARGE ACCOUNT NUMBER ADMITTING ENCOUNTER CLASS LOCATION SOURCE 05/12/2025/ 5 [id number] Stuart Madrid [facility]: ed: A [facility] 03/13/2025/ 5 [id number] [facility] ng:LMNL [facility] 02/03/2025/ 5 [id number] [facility] ENCOUNTER GUARANTOR PAYER SUBSCRIBER SOURCE 05/12/2025 [address]NA [address] [place] [address] Primary Insurance[facility] Number: [id number] Date:[id number] MARIA DEL CARMEN CaceresCLARANAIDA ROSA [address]NK: DIONNA CONCEPCIONDOB: [id number] [place] [address]Cdh: () [facility] 05/12/2025 Secondary Insurance:100 MEDICAIDPolicy Number: [id number] Date:0144-19-00[address] [address]IC: DIONNA SRINIVASANTUSHDOB: [id number] [place] [address]Kmv: () [facility] 05/12/2025 Tertiary Insurance:SELF PAYPolicy Number: Effective Date:100 [place], [place] [address]QU: NOT GIVENUNK [facility] 03/13/2025 DIONNA [address] [place] [address] Primary Insurance:PAVAN SRIRPolicy Number: [id number] Date:2289-72-32[facility] [address] [place] [address]SQ: DIONNA TAVERAB: [id number] [place] [address]Unn: () [facility] 03/13/2025 Secondary Insurance:SELF PAYPolicy Number: Effective Date:100 [facility] [place]ha[place], [place] [address]MD: NOT GIVENUNK [facility] 02/03/2025 [address]IONNA [address] [place] [address] Primary Insurance:BUCKEYE AMBETTERPolicy Number: [id number] Date:2948-19-06VK [address] [place] [address]MX: DIONNA GALANUSHB: [id number] [place] [address]Umg: () [facility] 02/03/2025 Secondary Insurance:SELF PAYPolicy Number: Effective Date:100 [place], [place] [address]YU: NOT GIVENUNK [facility]
[2025-08-02 18:49] VITALS: BP 119/87; PULSE 88; RESP 17; TEMP 36.8; O2SAT 98; BMI 24.4
--- NOTE | 2025-08-02 19:10 | EKG12_ITS ---
Test Reason : FALL Blood Pressure : */* mmHG Vent. Rate : 84 BPM Atrial Rate : 84 BPM P-R Int : 158 ms QRS Dur : 86 ms QT Int : 366 ms P-R-T Axes : 58 60 60 degrees QTcB Int : 432 ms Normal sinus rhythm Normal ECG Confirmed by CHASITY ESTRADA ([id number]), editorial cartoonist VESTA ROACH ([id number]) on 08/04/2025 8:42:20 AM Referred By: Confirmed By: CHASITY ESTRADA
--- NOTE | 2025-08-02 19:20 | EX.ED.DYSGE1 ---
HPI History of Present Illness Chief Complaint: Seizure Narrative Narrative: Patient is a 49-year-old male past medical history of Warnicke encephalopathy, CVA, GERD, anxiety, depression, hypertension who presents to the emergency department via EMS with a chief complaint of seizure. Patient was unable to provide history of present illness as he states he is unsure of exactly what happened therefore his daughter at bedside provided history of present illness. She states that in the last 10 days he has had multiple seizures he has been here to [facility] multiple times and had workup done and was ultimately sent back to the facility. The last time he was here for this she notes that he was started on Keppra. They checked a Keppra level and this was noted to be low. She states that he had 2 seizures at the facility today. She states that she is requesting that after the workup be completed he be transferred to another facility where there is neurology and EEG monitoring capabilities. [facility] Medical History Seizure Falls Abnormal gait Wernicke encephalopathy CVA (cerebral vascular accident) Hemiparesis Hemiplegia Malnutrition GERD (gastroesophageal reflux disease) Anxiety Depression Alcohol abuse HTN (hypertension) Home Medications ?Medication ?Instructions ?Recorded ?Last Taken ?Type acetaminophen 325 mg capsule 650 mg PO Q4H PRN fever or pain 07/22/25 Unknown History acetaminophen 650 mg rectal 650 mg [place] Q4H 07/22/25 Unknown History suppository aspirin 81 mg capsule 81 mg PO DAILY 07/22/25 Unknown History atorvastatin 80 mg tablet (Lipitor) 80 mg PO QHS 07/22/25 Unknown History clonazepam 0.5 mg tablet (Klonopin) 0.5 mg PO BID 07/22/25 Unknown History escitalopram oxalate 10 mg tablet 10 mg PO DAILY 07/22/25 Unknown History (Lexapro) folic acid 1 mg tablet 1 mg PO DAILY 07/22/25 Unknown History levetiracetam 500 mg tablet 500 mg PO BID #60 tabs 07/22/25 Unknown Rx (Keppra) metoprolol tartrate 25 mg tablet 25 mg PO BID 07/22/25 Unknown History multivitamin (Daily Multi-Vitamin 1 tab PO DAILY 07/22/25 Unknown History tablet) pantoprazole 40 mg tablet,delayed 40 mg PO DAILY 07/22/25 Unknown History release thiamine HCl (vitamin B1) 100 mg 100 mg PO DAILY 07/22/25 Unknown History tablet tramadol 50 mg tablet 50 mg PO Q8H 07/22/25 Unknown History Allergy/AdvReac Type Severity Reaction Status Date / Time No Known Allergies Allergy Verified 08/02/25 18:49 Social History Smoking Status: Current every day smoker tobacco type: cigarettes substance use type: marijuana ROS ROS ED ROS Narrative Constitutional: Complains of headache denies any fevers, chills, lightness, dizziness Eyes: Denies double vision blurry vision changes vision Cardiovascular: Denies chest pain or palpitations Respiratory: Denies coughing wheezing shortness of breath Abdomen: Denies abdominal pain nausea vomit diarrhea : No urinary symptoms Neurological: Complains of seizure as noted above Musculoskeletal: Denies back pain Skin: Denies any rashes or lesions EXAM Physical Exam Narrative Exam Narrative: General: Patient was lying in bed rest comfortably did not appear to be in acute distress Head: Atraumatic, normocephalic Eyes: PERRL bilaterally, EOMI bilaterally, no conjunctival injection noted Neck: Soft, supple, trachea midline Cardiovascular: Regular rate and rhythm no murmurs gallops rubs noted Respiratory: Clear to auscultation bilaterally no rales rhonchi or wheezes noted Abdomen: Soft, nondistended, no tenderness palpation Extremities: +5/5 strength noted in the bilateral lower extremities, no pedal edema on exam Neurological: Patient following commands knew that he was at [facility]. NIH is 0 GCS 15 Skin: Warm, dry, intact no rashes or lesions noted Const Vital Signs: 08/02/25 18:49 08/02/25 20:48 Temperature 98.3 F Temperature Source Oral Pulse Rate 88 76 Respiratory Rate 17 17 Blood Pressure 119/87 H 119/93 H Blood Pressure Mean 97 101 Pulse Ox 98 100 Oxygen Delivery Method Room Air MDM MDM MDM Narrative Medical decision making narrative: Patient is a 49-year-old male who presents to the emergency department chief complaint of multiple seizures today. On the differential diagnose includes but not limited to electrolyte abnormality, breakthrough seizure, pneumonia, UTI. Once workup is obtained reviewed he will be reevaluated. Patient will be given Keppra load of 3.5 g Patient CBC reviewed and showed no evidence of cytosis white blood count 11.9, he was little 12.2, plate count of 301. Patient sodium is 139, potassium normal at 4.7, creatinine normal at 0.72. Patient's glucose was 124, AST and ALT are 23 and 34 respectively total bilirubin normal at 0.20. Patient urinalysis reviewed and showed no evidence of infection. Patient's drug screen negative. Patient's EKG showed sinus rhythm with a rate of 84 bpm with AZ interval 158. Per request of family they are requesting [facility] transfer. Called and discussed with the transfer line and gave them all the information and the patient was accepted by Dr. Landa. Discussed this with the [facility] members and patient at bedside they are agreeable to this plan all question concerns answered. Lab Data Labs: Laboratory Results - last 24 hr 08/02/25 08/02/25 19:20 19:40 WBC 11.9 H RBC 4.35 L Hgb 12.2 L Hct 38.4 L MCV 88.3 MCH 28.0 MCHC 31.8 L RDW Std Deviation 44.0 H RDW Coeff of Dyllan 13.6 Plt Count 301 MPV 11.5 Immature Gran % (Auto) 0.600 Neut % (Auto) 59.2 Lymph % (Auto) 25.5 [place] % (Auto) 8.0 Eos % (Auto) 5.9 H Baso % (Auto) 0.8 Absolute Neuts (auto) 7.1 Absolute Lymphs (auto) 3.03 Nucleated RBC % 0 Sodium 139 Potassium 4.7 Chloride 104 Carbon Dioxide 23.8 Anion Gap 11 BUN 20 H Creatinine 0.72 Estim Creat Clear Calc 118.75 Est GFR (MDRD) Non-Af 111 BUN/Creatinine Ratio 27.6 H Glucose 124 H Calcium 9.6 Total Bilirubin 0.20 AST 23 ALT 34 Alkaline Phosphatase 84 Total Protein 6.8 Albumin 4.3 Globulin 2.5 Albumin/Globulin Ratio 1.7 Urine Color Straw Urine Clarity Clear Urine pH 7.0 Ur Specific [place] 1.005 Urine Protein Negative Urine Glucose (UA) Normal Urine Ketones Negative Urine Occult Blood Negative Urine Nitrite Negative Urine Bilirubin Negative Urine Urobilinogen Normal Ur Leukocyte Esterase Negative Urine RBC 0 SEEN Urine WBC 0 SEEN Ur Squamous Epith Cells 0 SEEN Urine Bacteria 0 SEEN Urine Mucus 0 SEEN Urine Opiates Screen NEGATIVE U Buprenorphine Qual NEGATIVE Ur Oxycodone Screen NEGATIVE Urine Methadone Screen NEGATIVE Urine Fentanyl Screen NEGATIVE Ur Barbiturates Screen NEGATIVE Ur Phencyclidine Scrn NEGATIVE Ur Amphetamines Screen NEGATIVE U Benzodiazepines Scrn NEGATIVE Urine Cocaine Screen NEGATIVE U Cannabinoids Screen NEGATIVE Discharge Plan Triage Chief Complaint: Seizure ED Provider: Ha Handley Dx/Rx/DC Orders Clinical Impression: Seizure, Hx of Wernicke's encephalopathy, History of CVA (cerebrovascular accident), Hypertension Prescriptions: No Action acetaminophen 650 mg suppository 650 mg [place] Q4H acetaminophen 325 mg capsule 650 mg PO Q4H PRN (Reason: fever or pain) aspirin 81 mg capsule 81 mg PO DAILY atorvastatin [Lipitor] 80 mg tablet 80 mg PO QHS clonazepam [Klonopin] 0.5 mg tablet 0.5 mg PO BID folic acid 1 mg tablet 1 mg PO DAILY escitalopram oxalate [Lexapro] 10 mg tablet 10 mg PO DAILY metoprolol tartrate 25 mg tablet 25 mg PO BID multivitamin [Daily Multi-Vitamin] Tablet 1 tab PO DAILY pantoprazole 40 mg tablet,delayed release (DR/EC) 40 mg PO DAILY thiamine HCl (vitamin B1) 100 mg tablet 100 mg PO DAILY tramadol 50 mg tablet 50 mg PO Q8H levetiracetam [Keppra] 500 mg tablet 500 mg PO BID Qty: 60 0RF Primary Care Provider: Amadeo Zazueta Referrals: Amadeo aZzueta DO [Primary Care Provider, Medical] Print Language: Greenlandic Disposition Disposition: DC/Tx to Another Type of HCF
[2025-08-02 19:42] LABS: Hematocrit 38.4 % (40-54); Hemoglobin 12.2 g/dL (13.0-16.5); Immature Granulocytes Count 0.070 X10^3/uL (0.0-0.0); Mean Corp Hgb Conc 31.8 g/dL (32-36); Mean Corpuscular Volume 88.3 fL (80-94); Mean Platelet Vol. 11.5 fl (6.2-12.0); NRBC Flagged by Analyzer 0 % (0-5); Platelet Count 301 K/mm3 (150-450); RBC Distribution Width CV 13.6 % (11.6-14.6); RBC Distribution Width SD 44.0 fl (35.1-43.9); Red Blood Count 4.35 M/mm3 (4.6-6.2); White Blood Count 11.9 K/mm3 (4.4-11.0)
[2025-08-02 19:45] LABS: Mucous, Urine 0 SEEN /hpf (<or=2+); Red Blood Cells-Urine 0 SEEN /hpf (0-5); Squamous Epithelial Cells - UA 0 SEEN /hpf (0-5)
[2025-08-02 19:48] LABS: Color, Urine Straw (Yellow); Glucose, Dipstick Normal (Normal); Ketone-Dipstick Negative (Negative); Leukocyte Esterase-Dipstick Negative /ul (Negative); Nitrite-Dipstick Negative (Negative); Occult Blood-Urine Negative /ul (Negative); Protein-Dipstick Negative (Negative); Specific Gravity, Urine 1.005 (1.002-1.030); Urine Bilirubin Dipstick Negative (Negative)
[2025-08-02] MEDS: levETIRAcetam IV 2,000 MG in 0.9% Normal Saline (250mL Bag) 230 ML 1000 MG IV (19:58)
[2025-08-02] MEDS: 0.9% Normal Saline (1000mL) 1,000 ML 999 ML IV (19:59)
[2025-08-02 20:07] LABS: AST(SGOT) 23 U/L (<=37); Alanine Aminotransfer ALT/SGPT 34 U/L (<=46); Albumin, Serum 4.3 g/dL (3.5-5.0); Alkaline Phosphatase 84 U/L (40-129); Anion Gap 11 (5-15); BUN 20 mg/dL (4-19); BUN/Creat Ratio 27.6 RATIO (10-20); Calcium,Total 9.6 mg/dL (7.6-11.0); Carbon Dioxide 23.8 mmol/L (21.0-32.0); Chloride 104 mmol/L (98-108); Estimated Creatinine Clearance 118.75 ml/min (50-250); Globulin 2.5 g/dL (2.2-4.2); Glucose 124 mg/dL (70-99); Potassium 4.7 mmol/L (3.3-5.1)
[2025-08-02] MEDS: levETIRAcetam IV 1,500 MG in 0.9% Normal Saline (100mL Bag) 100 ML 460 MG IV (20:15)
[2025-08-02 20:48] VITALS: BP 119/93; PULSE 76; RESP 17; O2SAT 100
[2025-08-02 20:53] LABS: Barbiturate Urine NEGATIVE (< 200 ng/mL); Benzodiazepine Urine NEGATIVE (< 200 ng/mL); PCP Urine NEGATIVE (< 25 ng/mL); THC Urine NEGATIVE (< 50 ng/mL)
--- NOTE | 2025-08-02 21:15 | PCA ---
ACCEPTED [facility] DR. JERRI FELIX WAITING BED ASSIGNMENT.
[2025-08-02 22:00] VITALS: BP 132/95; PULSE 90; RESP 17
--- NOTE | 2025-08-02 22:34 | ED.RN ---
Pt found at room door, dressed and ready to leave. Pt able to state name and year but disoriented to place. Redirected Pt back to bed. Dr Handley notified.
--- NOTE | 2025-08-02 23:32 | ED.RN ---
Updated daughter and jail on Pt status.
[2025-08-03] VITALS (7 sets, daily range): BP systolic 103–125; BP diastolic 76–94; PULSE 60–81; RESP 16–18; TEMP 36.6; O2SAT 97–99; BMI 23.0
--- NOTE | 2025-08-03 02:07 | PCA ---
CALLED TRANSFER CENTER AROUND 2 AM INQUIRING ABOUT BED ASSIGNMENT. ABEL TRANSFER RN STATED THEY HAVE AVAILABLE BEDS, HOWEVER THEIR ER IS VERY BUSY SO MOST LIKELY HOLDING OFF ON BED ASSIGNMENT DUE TO THEIR ACUITY.
--- NOTE | 2025-08-03 07:16 | PCA ---
CALLED @ 7 FOR AN UPDATE THEY SAID IT WOULD BE SOMETIME TODAY BUT NO BEDS AVAILABLE YET, SHOULD HAVE SOME AFTER DISCHARGES
--- NOTE | 2025-08-03 08:27 | HP.PCM.HOS_ITS ---
HPI - General General Date of Service: 08/03/25 Chief Complaint: Seizure HPI Narrative DIONNA CONCEPCION, is a 50 M who presents with seizures. This is a 50-year-old male with a history of Warnicke's encephalopathy and stroke who has been having seizures over the past month. Patient was seen in June with an episode of unresponsiveness. Was instructed to drink a lot of fluid at that time. Presented again on July 22 with seizure. Came back again on the and I was sent home. These episodes were described as unresponsiveness and had waking up with people around him. Patient tells me that PE feels that he tenses up and starts to shake and is awake but may pass out towards the end of this but comes to rather quickly. States is all began about a month ago after the loss of a grandparent. He denies any bladder incontinence. Says he has blurry vision but thinks he needs to have his eyes checked. Headache. [facility] Medical History Seizure Falls Abnormal gait Wernicke encephalopathy CVA (cerebral vascular accident) Hemiparesis Hemiplegia Malnutrition GERD (gastroesophageal reflux disease) Anxiety Depression Alcohol abuse HTN (hypertension) Home Medications ?Medication ?Instructions ?Recorded ?Last Taken ?Type acetaminophen 325 mg capsule 650 mg PO Q4H PRN fever o r pain 07/22/25 Unknown History acetaminophen 650 mg rectal 650 mg OR Q4H 07/22/25 Unk nown History suppository aspirin 81 mg capsule 81 mg PO DAILY 07/22/25 Unkn own History atorvastatin 80 mg tablet (Lipitor) 80 mg PO QHS 07/22 Unknown History clonazepam 0.5 mg tablet (Klonopin) 0.5 mg PO PRN 07/07 04/30 Unknown History escitalopram oxalate 10 mg tablet 10 mg PO DAILY 07/22 Unknown History (Lexapro) folic acid 1 mg tablet 1 mg PO DAILY 07/22/25 Unkno wn History metoprolol tartrate 25 mg tablet 25 mg PO BID 07/22/25 Unknown History multivitamin (Daily Multi-Vitamin 1 tab PO DAILY 07/22 Unknown History tablet) pantoprazole 40 mg tablet,delayed 40 mg PO DAILY 07/22 Unknown History release thiamine HCl (vitamin B1) 100 mg 100 mg PO DAILY 07/22 Unknown History tablet tramadol 50 mg tablet 50 mg PO PRN 07/22/25 Unknow n History guaifenesin 100 mg/5 mL oral 200 mg PO Q4H PRN cough 0 08/02/25 Unknown History liquid (Adult Tussin Chest Congestion) hydroxyzine pamoate 25 mg capsule 25 mg PO PRN 5 Unknown History (Vistaril) levetiracetam 500 mg tablet See Rx Instructions PO .CO MPLEX 08/02/25 Unknown History (Keppra) loperamide 2 mg capsule 2 mg PO Q8H PRN loose stool 08/02/25 Unknown History (Anti-Diarrheal (loperamide)) magnesium hydroxide 400 mg/5 mL 2,400 mg PO DAILY PRN constipation 08/02/25 Unknown History oral suspension (Milk of Magnesia) melatonin 5 mg capsule 5 mg PO QHS 08/02/25 Unknown History polyethylene glycol 3350 17 17 g PO DAILY 08/02/25 Unk nown History gram/dose oral powder (ClearLax) tamsulosin 0.4 mg capsule (Flomax) 0.4 mg PO DAILY Unknown History trazodone 50 mg tablet 25 mg PO QHS 08/02/25 Unknow n History Allergy/AdvReac Type Severity Reaction Status Date / Time No Known Allergies Allergy Verified 08/02/25 18:49 Social History (Updated 08/03/25 @ 08:[address] Anthony Vázquez, DO) Smoking Status: Current every day smoker tobacco type: cigarettes alcohol intake: current alcohol intake frequency: 3 or more drinks per day
--- NOTE | 2025-08-03 08:27 | PCM.HP.STD ---
HPI - General General Date of Service: 08/03/25 Chief Complaint: Seizure HPI Narrative DIONNA CONCEPCION, is a 50 M who presents with seizures. This is a 50-year-old male with a history of Warnicke's encephalopathy and stroke who has been having seizures over the past month. Patient was seen in June with an episode of unresponsiveness. Was instructed to drink a lot of fluid at that time. Presented again on July 22 with seizure. Came back again on the and I was sent home. These episodes were described as unresponsiveness and had waking up with people around him. Patient tells me that PE feels that he tenses up and starts to shake and is awake but may pass out towards the end of this but comes to rather quickly. States is all began about a month ago after the loss of a grandparent. He denies any bladder incontinence. Says he has blurry vision but thinks he needs to have his eyes checked. Headache. REPLACED BY [facility] Medical History Seizure Falls Abnormal gait Wernicke encephalopathy CVA (cerebral vascular accident) Hemiparesis Hemiplegia Malnutrition GERD (gastroesophageal reflux disease) Anxiety Depression Alcohol abuse HTN (hypertension) Home Medications ?Medication ?Instructions ?Recorded ?Last Taken ?Type acetaminophen 325 mg capsule 650 mg PO Q4H PRN fever or pain 07/22/25 Unknown History acetaminophen 650 mg rectal 650 mg AL Q4H 07/22/25 Unknown History suppository aspirin 81 mg capsule 81 mg PO DAILY 07/22/25 Unknown History atorvastatin 80 mg tablet (Lipitor) 80 mg PO QHS 07/22/25 Unknown History clonazepam 0.5 mg tablet (Klonopin) 0.5 mg PO PRN 07/22/25 Unknown History escitalopram oxalate 10 mg tablet 10 mg PO DAILY 07/22/25 Unknown History (Lexapro) folic acid 1 mg tablet 1 mg PO DAILY 07/22/25 Unknown History metoprolol tartrate 25 mg tablet 25 mg PO BID 07/22/25 Unknown History multivitamin (Daily Multi-Vitamin 1 tab PO DAILY 07/22/25 Unknown History tablet) pantoprazole 40 mg tablet,delayed 40 mg PO DAILY 07/22/25 Unknown History release thiamine HCl (vitamin B1) 100 mg 100 mg PO DAILY 07/22/25 Unknown History tablet tramadol 50 mg tablet 50 mg PO PRN 07/22/25 Unknown History guaifenesin 100 mg/5 mL oral 200 mg PO Q4H PRN cough 08/02/25 Unknown History liquid (Adult Tussin Chest Congestion) hydroxyzine pamoate 25 mg capsule 25 mg PO PRN 08/02/25 Unknown History (Vistaril) levetiracetam 500 mg tablet See Rx Instructions PO .COMPLEX 08/02/25 Unknown History (Keppra) loperamide 2 mg capsule 2 mg PO Q8H PRN loose stool 08/02/25 Unknown History (Anti-Diarrheal (loperamide)) magnesium hydroxide 400 mg/5 mL 2,400 mg PO DAILY PRN constipation 08/02/25 Unknown History oral suspension (Milk of Magnesia) melatonin 5 mg capsule 5 mg PO QHS 08/02/25 Unknown History polyethylene glycol 3350 17 17 g PO DAILY 08/02/25 Unknown History gram/dose oral powder (ClearLax) tamsulosin 0.4 mg capsule (Flomax) 0.4 mg PO DAILY 08/02/25 Unknown History trazodone 50 mg tablet 25 mg PO QHS 08/02/25 Unknown History Allergy/AdvReac Type Severity Reaction Status Date / Time No Known Allergies Allergy Verified 08/02/25 18:49 Social History (Updated 08/03/25 @ 08:[address] Anthony Vázquez, ) Smoking Status: Current every day smoker tobacco type: cigarettes alcohol intake: current alcohol intake frequency: 3 or more drinks per day Alcohol type: beer substance use type: marijuana ROS ROS Narrative All review of systems were negative except as mentioned above in the history of present illness and the other review of systems. Vital Signs Vital Signs Vital Signs: 08/02/25 18:49 08/02/25 20:48 08/02/25 22:00 Temperature 36.8 C Temperature Source Oral Pulse Rate 88 76 90 Respiratory Rate 17 17 17 Blood Pressure 119/87 H 119/93 H 132/95 H Blood Pressure Mean 97 101 107 Pulse Ox 98 100 Oxygen Delivery Method Room Air 08/03/25 01:24 08/03/25 03:00 08/03/25 05:00 Temperature Temperature Source Pulse Rate 60 67 68 Respiratory Rate 18 18 16 Blood Pressure 125/81 H 125/82 H 103/76 Blood Pressure Mean 95 96 85 Pulse Ox 97 99 98 Oxygen Delivery Method Room Air Room Air Room Air 08/03/25 07:00 Temperature Temperature Source Pulse Rate 67 Respiratory Rate 16 Blood Pressure 122/78 H Blood Pressure Mean 92 Pulse Ox 98 Oxygen Delivery Method Room Air Weight Weight: 72.9 kg Body Mass Index (BMI) 24.4 Physical Exam Const alert, no apparent distress and average body habitus General Appearance: cooperative HEENT normocephalic and head/scalp atraumatic Resp normal respiratory effort, no retractions, no use of accessory muscles and clear to auscultation bilaterally Cardio regular rate, regular rhythm, S1 normal heart sound and S2 normal heart sound GI normal to inspection, nondistended, normoactive bowel sounds, soft to palpation, non-tender and non-distended Extremity normal to inspection and full ROM Neuro oriented x3, CN's II-XII intact bilaterally, moves all extremities and no focal motor deficits Sensorium / Orientation: awake, alert, oriented to person, oriented to place and oriented to time Speech: speech normal Motor Exam: strength 5/5 throughout Psych affect normal Results Lab / Micro Data 08/02/25 19:20 08/02/25 19:20 Labs: Laboratory Results - last 24 hr 08/02/25 19:20: WBC 11.9 H, RBC 4.35 L, Hgb 12.2 L, Hct 38.4 L, MCV 88.3, MCH 28.0, MCHC 31.8 L, RDW Std Deviation 44.0 H, RDW Coeff of Dyllan 13.6, Plt Count 301, MPV 11.5, Immature Gran % (Auto) 0.600, Neut % (Auto) 59.2, Lymph % (Auto) 25.5, [place] % (Auto) 8.0, Eos % (Auto) 5.9 H, Baso % (Auto) 0.8, Absolute Neuts (auto) 7.1, Absolute Lymphs (auto) 3.03, Nucleated RBC % 0, Sodium 139, Potassium 4.7, Chloride 104, Carbon Dioxide 23.8, Anion Gap 11, BUN 20 H, Creatinine 0.72, Estim Creat Clear Calc 118.75, Est GFR (MDRD) Non-Af 111, BUN/Creatinine Ratio 27.6 H, Glucose 124 H, Calcium 9.6, Total Bilirubin 0.20, AST 23, ALT 34, Alkaline Phosphatase 84, Total Protein 6.8, Albumin 4.3, Globulin 2.5, Albumin/Globulin Ratio 1.7 08/02/25 19:40: Urine Color Straw, Urine Clarity Clear, Urine pH 7.0, Ur Specific [place] 1.005, Urine Protein Negative, Urine Glucose (UA) Normal, Urine Ketones Negative, Urine Occult Blood Negative, Urine Nitrite Negative, Urine Bilirubin Negative, Urine Urobilinogen Normal, Ur Leukocyte Esterase Negative, Urine RBC 0 SEEN, Urine WBC 0 SEEN, Ur Squamous Epith Cells 0 SEEN, Urine Bacteria 0 SEEN, Urine Mucus 0 SEEN, Urine Opiates Screen NEGATIVE, U Buprenorphine Qual NEGATIVE, Ur Oxycodone Screen NEGATIVE, Urine Methadone Screen NEGATIVE, Urine Fentanyl Screen NEGATIVE, Ur Barbiturates Screen NEGATIVE, Ur Phencyclidine Scrn NEGATIVE, Ur Amphetamines Screen NEGATIVE, U Benzodiazepines Scrn NEGATIVE, Urine Cocaine Screen NEGATIVE, U Cannabinoids Screen NEGATIVE Assessment & Plan Assessment/Plan (1) Seizure: PLAN: Unclear if patient is having seizures or pseudoseizures. Patient describes these episodes where he is shaking and is awake initially and then passes out but that is common from previous hospitalizations that he surround by others. He denies any bladder incontinence as well. He is on Keppra and his Keppra level was low last time he was here so he was loaded with 3.5 g of levetiracetam in the hospital here. Family has requested transfer to [place]. Currently there is no beds available there now so being that he is stable, it would be appropriate to bring him here into the hospital here waiting on transfer. I was informed that the transfer may transpire later on today but that is not definitive. I will put in an order for an MRI of the brain as well as an EEG. Neurology on consult to read the EEG. Continue with his levetiracetam dosing at home. If patient's descriptions of the seizures are accurate then it would seem less likely that these are seizures as they seem to been precipitated after a of a family member. I do not have anyone from his family to verify this. Additionally we will hold off on any further tramadol given his potential of lowering the seizure threshold PLAN: Plan Chronic medical conditions History of Warnicke's encephalopathy: On thiamine and folate BPH: Continue tamsulosin Hypertension: Continue with metoprolol History of stroke: Continue with aspirin and atorvastatin Depression: Continue with escitalopram Alcohol abuse: Patient describes still being active drinker. Continue with thiamine and folate VTE prophylaxis with enoxaparin CODE STATUS: From his facility paperwork he is full code. Charges/Coding Visit Charges Inpatient E&M: 24399 Init Hosp L3
[2025-08-03] MEDS: Polyethylene Glycol 3350 17 GM PACKET PO (11:09)
[2025-08-03] MEDS: Thiamine Hydrochloride 100 MG Tablet PO (11:10)
[2025-08-03] MEDS: hydrOXYzine PAM 25 MG Capsule PO (13:33)
--- NOTE | 2025-08-03 16:28 | DS.PCM_ITS ---
Providers Date of Admission: 08/03/25 Primary Care Physician: Dr. Amadeo Zazueta, DO Reason For Visit: SEIZURE Diagnosis Discharge Diagnosis (1) Seizure: Status: Acute Code(s): R56.9 - Unspecified convulsions Plan: Unclear if patient is having seizures or pseudoseizures. Patient describes these episodes where he is shaking and is awake initially and then passes out but that is common from previous hospitalizations that he surround by others. He denies any bladder incontinence as well. He is on Keppra and his Keppra level was low last time he was here so he was loaded with 3.5 g of levetiracetam in the hospital here. Family has requested transfer to [facility]. Currently there is no beds available there now so being that he is stable, it would be appropriate to bring him here into the hospital here waiting on transfer. I was informed that the transfer may transpire later on today but that is not definitive. I will put in an order for an MRI of the brain as well as an EEG. Neurology on consult to read the EEG. Continue with his levetiracetam dosing at home. If patient's descriptions of the seizures are accurate then it would seem less likely that these are seizures as they seem to been precipitated after a of a family member. I do not have anyone from his family to verify this. Additionally we will hold off on any further tramadol given his potential of lowering the seizure threshold Plan Chronic medical conditions * History of Warnicke's encephalopathy: On thiamine and folate * BPH: Continue tamsulosin * Hypertension: Continue with metoprolol * History of stroke: Continue with aspirin and atorvastatin * Depression: Continue with escitalopram * Alcohol abuse: Patient describes still being active drinker. Continue with thiamine and folate VTE prophylaxis with enoxaparin CODE STATUS: From his facility paperwork he is full code. Medications at Discharge Home Medications acetaminophen 325 mg capsule 650 mg PO Q4H PRN fever or pain 07/22/25 acetaminophen 650 mg rectal suppository 650 mg ID Q4H 07/22/25 aspirin 81 mg capsule 81 mg PO DAILY 07/22/25 atorvastatin 80 mg tablet (Lipitor) 80 mg PO QHS 07/22/25 clonazepam 0.5 mg tablet (Klonopin) 0.5 mg PO PRN 07/22/25 escitalopram oxalate 10 mg tablet (Lexapro) 10 mg PO DAILY 07/22/25 folic acid 1 mg tablet 1 mg PO DAILY 07/22/25 metoprolol tartrate 25 mg tablet 25 mg PO BID 07/22/25 multivitamin (Daily Multi-Vitamin tablet) 1 tab PO DAILY 07/22/25 pantoprazole 40 mg tablet,delayed release 40 mg PO DAILY 07/22/25 thiamine HCl (vitamin B1) 100 mg tablet 100 mg PO DAILY 07/22/25 tramadol 50 mg tablet 50 mg PO PRN 07/22/25 guaifenesin 100 mg/5 mL oral liquid (Adult Tussin Chest Congestion) 200 mg PO Q4H PRN cough 08/02/25 hydroxyzine pamoate 25 mg capsule (Vistaril) 25 mg PO PRN 08/02/25 levetiracetam 500 mg tablet (Keppra) See Rx Instructions PO .COMPLEX 08/02/25 loperamide 2 mg capsule (Anti-Diarrheal (loperamide)) 2 mg PO Q8H PRN loose stool 08/02/25 magnesium hydroxide 400 mg/5 mL oral suspension (Milk of Magnesia) 2,400 mg PO DAILY PRN constipation 08/02/25 melatonin 5 mg capsule 5 mg PO QHS 08/02/25 polyethylene glycol 3350 17 gram/dose oral powder (ClearLax) 17 g PO DAILY 08/02/25 tamsulosin 0.4 mg capsule (Flomax) 0.4 mg PO DAILY 08/02/25 trazodone 50 mg tablet 25 mg PO QHS 08/02/25 Weight / BMI Weight Weight: 68.6 kg Body Mass Index (BMI) 23.0 ABG / Lab / Microbiology Data 08/02/25 19:20 08/02/25 19:20 Laboratory: Laboratory Results - last 24 hr 08/02/25 19:20: WBC 11.9 H, RBC 4.35 L, Hgb 12.2 L, Hct 38.4 L, MCV 88.3, MCH 28.0, MCHC 31.8 L, RDW Std Deviation 44.0 H, RDW Coeff of Dyllan 13.6, Plt Count 301, MPV 11.5, Immature Gran % (Auto) 0.600, Neut % (Auto) 59.2, Lymph % (Auto) 25.5, Coal % (Auto) 8.0, Eos % (Auto) 5.9 H, Baso % (Auto) 0.8, Absolute Neuts (auto) 7.1, Absolute Lymphs (auto) 3.03, Nucleated RBC % 0, Sodium 139, Potassium 4.7, Chloride 104, Carbon Dioxide 23.8, Anion Gap 11, BUN 20 H, Creatinine 0.72, Estim Creat Clear Calc 118.75, Est GFR (MDRD) Non-Af 111, B UN/Creatinine Ratio 27.6 H, Glucose 124 H, Calcium 9.6, Total Bilirubin 0.20, AST 23, ALT 34, Alkaline Phosphatase 84, Total Protein 6.8, Albumin 4.3, Globulin 2.5, Albumin/Globulin Ratio 1.7 08/02/25 19:40: Urine Color Straw, Urine Clarity Clear, Urine pH 7.0, Ur Specific Lynn 1.005, Urine Protein Negative, Urine Glucose (UA) Normal, Urine Ketones Negative, Urine Occult Blood Negative, Urine Nitrite Negative, Urine Bilirubin Negative, Urine Urobilinogen Normal, Ur Leukocyte Esterase Negative, Urine RBC 0 SEEN, Urine WBC 0 SEEN, Ur Squamous Epith Cells 0 SEEN, Urine Bacteria 0 SEEN, Urine Mucus 0 SEEN, Urine Opiates Screen NEGATIVE, U Buprenorphine Qual NEGATIVE, Ur Oxycodone Screen NEGATIVE, Urine Methadone Screen NEGATIVE, Urine Fentanyl Screen NEGATIVE, Ur Barbiturates Screen NEGATIVE, Ur Phencyclidine Scrn NEGATIVE, Ur Amphetamines Screen NEGATIVE, U Benzodiazepines Scrn NEGATIVE, Urine Cocaine Screen NEGATIVE, U Cannabinoids Screen NEGATIVE D/C Instructions DC O2, CPAP, BIPAP Needs Home O2 Discharge instructions: No Meaningful Use Info Meaningful Use Meaningful Use Diagnoses (Choose all that apply): None applicable Discharge Plan Admission Admit Date/Time: 08/03/25 08:22 Primary Reason for Your Visit: possible seizure Attending Provider: Anthony Vázquez Primary Care Provider: Amadeo Zazueta Consulting Providers: Balaji Jama; Deya Garcia; Shaunna Escobedo; Tin Flaherty; Dariusz Kelelr; Leslie Zacarias; SUZI RAMIREZ; Linnea Spaulding; Kamilla Andres; Nikos Rodriguez; Connie May Discharge Orders/Prescriptions Prescriptions: No Action acetaminophen 650 mg suppository 650 mg ID Q4H acetaminophen 325 mg capsule 650 mg PO Q4H PRN (Reason: fever or pain) aspirin 81 mg capsule 81 mg PO DAILY atorvastatin [Lipitor] 80 mg tablet 80 mg PO QHS clonazepam [Klonopin] 0.5 mg tablet 0.5 mg PO PRN folic acid 1 mg tablet 1 mg PO DAILY escitalopram oxalate [Lexapro] 10 mg tablet 10 mg PO DAILY metoprolol tartrate 25 mg tablet 25 mg PO BID multivitamin [Daily Multi-Vitamin] Tablet 1 tab PO DAILY pantoprazole 40 mg tablet,delayed release (DR/EC) 40 mg PO DAILY thiamine HCl (vitamin B1) 100 mg tablet 100 mg PO DAILY tramadol 50 mg tablet 50 mg PO PRN hydroxyzine pamoate [Vistaril] 25 mg capsule 25 mg PO PRN tamsulosin [Flomax] 0.4 mg capsule 0.4 mg PO DAILY trazodone 50 mg tablet 25 mg PO QHS polyethylene glycol 3350 [ClearLax] 17 gram/dose powder 17 g PO DAILY magnesium hydroxide [Milk of Magnesia] 400 mg/5 mL suspension 2,400 mg PO DAILY PRN (Reason: constipation) melatonin 5 mg capsule 5 mg PO QHS loperamide [Anti-Diarrheal (loperamide)] 2 mg capsule 2 mg PO Q8H PRN (Reason: loose stool) guaifenesin [Adult Tussin Chest Congestion] 100 mg/5 mL liquid 200 mg PO Q4H PRN (Reason: cough) levetiracetam [Keppra] 500 mg tablet See Rx Instructions PO .COMPLEX Rx Instructions: Take 500 in am and 1000 mg at hs orally; Referrals / Follow Up: Amadeo Zazueta DO [Primary Care Provider, Medical] Disposition Disposition (needs filled in before D/C Order can be placed): Acute Care Hospital Charges/Coding Visit Charges OBSV E&M: 25269 Observ/hosp same date L2
== END 2025-08-03 18:07 | disposition short-term general hospital (02) ==
LOC: ED 08-03 03:32 → PCU 08-03 08:42
PROVIDERS: Emergency Provider Emergency Medicine
DX: R56.9 Unspecified convulsions (principal); I10 Essential (primary) hypertension; F41.9 Anxiety disorder, unspecified; Z79.82 Long term (current) use of aspirin; F32.A Depression, unspecified; Z79.899 Other long term (current) drug therapy; F10.10 Alcohol abuse, uncomplicated; Z86.73 Personal history of transient ischemic attack (TIA), and cerebral infarction without residual deficits; N40.0 Benign prostatic hyperplasia without lower urinary tract symptoms; K21.9 Gastro-esophageal reflux disease without esophagitis; F17.210 Nicotine dependence, cigarettes, uncomplicated
CPT/HCPCS: 80053; 80307; 81001; 85025; 93005; 96365; 96366; 96372; 96375; 99221; 99285; 99406; A4216; G0378

== ENCOUNTER 2025-08-09 14:35 | Emergency (ER) | payer MEDICAID, SELFPAY ==
[2025-08-09 14:39] VITALS: BP 101/73; PULSE 95; RESP 23; TEMP 36.8; O2SAT 97; BMI 23.8
--- NOTE | 2025-08-09 14:39 | RAD_ITS ---
PROCEDURE: CHEST 1 VIEW (PORTABLE) 08/09/2025 REASON FOR EXAM: CHEST PAIN TECHNIQUE: Frontal view of the chest. COMPARISON: 06/26/2025 FINDINGS: The heart mediastinum are normal. The lungs are clear. There is no focal consolidation or effusion. No pneumothorax. Osseous structures are intact. RAD/Chest 1 View (Portable) IMPRESSION: No acute cardiopulmonary process. Reading Location: [id number]
--- NOTE | 2025-08-09 14:39 | EKG12_ITS ---
Test Reason : CP Blood Pressure : */* mmHG Vent. Rate : 93 BPM Atrial Rate : 93 BPM P-R Int : 170 ms QRS Dur : 80 ms QT Int : 346 ms P-R-T Axes : 65 67 71 degrees QTcB Int : 430 ms Normal sinus rhythm Normal ECG Confirmed by VALENCIA MORSE, NEYMAR ([id number]), film or videotape editor VESTA ROACH ([id number]) on 08/11/2025 8:33:11 AM Referred By: YONATHAN Confirmed By: NEYMAR BIRMINGHAM MD
--- NOTE | 2025-08-09 14:52 | ED.VIS.CHEST ---
HPI History of Present Illness Chief Complaint: Chest Pain Informant: patient Onset/Context/Timing Onset: Today and Hours (Began less than an hour ago. At rest. No exertion.) Activity at onset: sudden Timing: Intermittent (Currently resolved.) Quality: Positive for Sharp Location: Substernal Current Severity: Gone Maximum Severity: Mild Worsened By: Nothing Relieved By: Nothing Associated Symptoms: Negative for Nausea, Vomiting, Diaphoresis, Dyspnea, Cough, Fever, Lightheadedness, Acid Reflux or Palpitations Narrative Narrative: 50-year-old male history of strokes and hypertension. Currently resides in senior living facility. Reportedly an hour ago had chest pain at rest. Squad was called. He was given nitro and aspirin. He said the nitro really did not make any difference. Currently he is pain-free. Denies any hemoptysis. No leg swelling. No pleuritic pain. No cardiac history or prior thoracic surgery. Prior Similar Symptoms: No Recent Illness/Hospitalization: No CVD Risk Factors: Positive for Hypertension; Negative for Diabetes PE Risk Factors: Negative for Recent Travel/Surgery, Recent Immobilization, Prior DVT or PE, Cancer or OCP + Smoking + >/=35 TAD Risk Factors: Negative for Marfan's Syndrome [facility] Medical History Seizure Falls Abnormal gait Wernicke encephalopathy CVA (cerebral vascular accident) Hemiparesis Hemiplegia Malnutrition GERD (gastroesophageal reflux disease) Anxiety Depression Alcohol abuse HTN (hypertension) Home Medications ?Medication ?Instructions ?Recorded ?Last Taken ?Type acetaminophen 325 mg capsule 650 mg PO Q4H PRN fever or pain 07/22/25 Unknown History aspirin 81 mg capsule 81 mg PO DAILY 07/22/25 Unknown History atorvastatin 80 mg tablet (Lipitor) 80 mg PO QHS 07/22/25 Unknown History clonazepam 0.5 mg tablet (Klonopin) 0.5 mg PO PRN 07/22/25 Unknown History escitalopram oxalate 10 mg tablet 15 mg PO DAILY 07/22/25 Unknown History (Lexapro) folic acid 1 mg tablet 1 mg PO DAILY 07/22/25 Unknown History metoprolol tartrate 25 mg tablet 25 mg PO BID 07/22/25 Unknown History multivitamin (Daily Multi-Vitamin 1 tab PO DAILY 07/22/25 Unknown History tablet) pantoprazole 40 mg tablet,delayed 40 mg PO DAILY 07/22/25 Unknown History release thiamine HCl (vitamin B1) 100 mg 100 mg PO DAILY 07/22/25 Unknown History tablet tramadol 50 mg tablet 50 mg PO Q8H PRN pain 07/22/25 Unknown History guaifenesin 100 mg/5 mL oral 200 mg PO Q4H PRN cough 08/02/25 Unknown History liquid (Adult Tussin Chest Congestion) hydroxyzine pamoate 25 mg capsule 25 mg PO Q6H PRN anxiety 08/02/25 Unknown History (Vistaril) levetiracetam 500 mg tablet See Rx Instructions PO .COMPLEX 08/02/25 Unknown History (Keppra) loperamide 2 mg capsule 2 mg PO Q6H PRN loose stool 08/02/25 Unknown History (Anti-Diarrheal (loperamide)) magnesium hydroxide 400 mg/5 mL 2,400 mg PO DAILY PRN constipation 08/02/25 Unknown History oral suspension (Milk of Magnesia) melatonin 5 mg capsule 5 mg PO QHS 08/02/25 Unknown History polyethylene glycol 3350 17 17 g PO DAILY 08/02/25 Unknown History gram/dose oral powder (ClearLax) tamsulosin 0.4 mg capsule (Flomax) 0.4 mg PO DAILY 08/02/25 Unknown History trazodone 50 mg tablet 25 mg PO QHS 08/02/25 Unknown History aluminum-mag hydroxide-simethicone 30 ml PO Q8H PRN PRN indigestion 08/09/25 Unknown History 200 mg-200 mg-20 mg/5 mL oral susp (Antacid) cholecalciferol (vitamin D3) 50 50 mcg PO DAILY 08/09/25 Unknown History mcg (2,000 unit) capsule lacosamide 200 mg tablet 200 mg PO BID 08/09/25 Unknown History pyridoxine (vitamin B6) 100 mg 100 mg PO DAILY 08/09/25 Unknown History tablet Allergy/AdvReac Type Severity Reaction Status Date / Time atorvastatin Allergy PT UNSURE Verified 08/09/25 14:38 OF REACTION shellfish derived Allergy Nausea/Vom/ Verified 08/09/25 14:38 Diarrhea Social History Smoking Status: Current every day smoker tobacco type: cigarettes alcohol intake: current alcohol intake frequency: 3 or more drinks per day Alcohol type: beer substance use type: marijuana ROS ROS ED ROS Narrative Denies recent illness.Denies exertional dyspnea or exertional chest pain. Constitutional Constitutional ED: Denies chills or fever(s) Eyes Eyes: Reports none ENT ENT ED: Denies ear pain Cardiovascular Cardiovascular: Reports as per HPI and chest pain; Denies palpitations or racing heartbeat Respiratory/Chest Respiratory/Chest: Denies cough, dyspnea or dyspnea on exertion Gastrointestinal Gastrointestinal: Denies abdominal pain, diarrhea, melena, nausea or vomiting Genitourinary Genitourinary ED: Denies dysuria or hematuria Musculoskeletal Musculoskeletal: Denies arthralgias or back pain Integumentary Denies abscess Neurologic Neurologic: Denies headache(s) Psychiatric Psychiatric: Denies anxiety Endocrine Endocrinology: Denies cold intolerance Hematologic/Lymphatic Hematologic/Lymphatic: Denies easy bleeding, easy bruising or lymphadenopathy Allergic/Immunologic Allergic/Immunologic ED: Denies mouth swelling, tongue swelling or urticaria EXAM Physical Exam Narrative Exam Narrative: Well-appearing middle-age male. Vital signs stable afebrile. Pulse ox 97% on room air no hypoxia. No distress. Currently symptom-free. H EENT exam pupils are react light. Moist extremities. No facial droop. Neck nontender JVD. Back nontender. Lungs clear to auscultation bilaterally. Heart regular rhythm rate about 90 no murmur. Chest wall ribs nontender. No ecchymosis or bruising. No subcu air or crepitus. Abdomen soft nontender. Normal bowel sounds without peritoneal signs. Moving all 4 extremities. 5-5 feeder associate strength bilaterally. Dorsi plantarflexion intact. Equal symmetric radial pulses. Calves nontender no edema no cords. Neurologically he is awake and alert. Answering questions following commands. Const Vital Signs: 08/09/25 14:39 08/09/25 14:44 08/09/25 15:30 Temperature 98.2 F Temperature Source Oral Pulse Rate 95 88 Respiratory Rate 23 H 20 H Blood Pressure 101/73 120/85 H Blood Pressure Mean 82 96 Pulse Ox 97 96 Oxygen Delivery Method Room Air Room Air Room Air 08/09/25 16:00 08/09/25 17:00 Temperature Temperature Source Pulse Rate 94 91 Respiratory Rate 23 H 23 H Blood Pressure 119/93 H 120/81 H Blood Pressure Mean 101 94 Pulse Ox 97 98 Oxygen Delivery Method Room Air Room Air Positive well nourished and well developed; Negative for obese, cachectic, contractures or unkempt General Appearance ED: well developed and NAD; Negative for unkempt, cachectic, contractures or pallor Nutritional Appearance: Negative for cachectic or obese HEENT Reports moist mucous membranes normocephalic and atraumatic Eyes PERRL and EOMs intact bilaterally Neck no lymphadenopathy, supple and no JVD Chest Wall inspection of chest normal and palpation of chest normal Chest: Negative for tenderness Resp normal respiratory effort and clear to auscultation bilaterally Cardio regular rate, regular rhythm, S1 normal heart sound, S2 normal heart sound and no murmurs Peripheral Pulses: pulses 2+ throughout GI normal to inspection, nondistended, normoactive bowel sounds, soft to palpation, non-tender, non-distended and no masses Back/Spine no CVA tenderness and no thoracic nor lumbar tenderness Extremity normal to inspection General Extremety ED: Negative for edema, pulses abnormal or tenderness General Extremity: Negative for edema or pulses abnormal Neuro oriented x3 and CN's II-XII intact bilaterally Sensorium / Orientation: awake, alert, oriented to person and oriented to place Motor Exam: strength 5/5 throughout Psych mental status grossly normal Appearance: Negative for unkempt Skin no rashes or lesions noted and no wounds General Skin Exam: Negative for jaundice or pallor Rashes: No rashes noted Trauma: Negative for abrasion or laceration MDM MDM MDM Narrative Medical decision making narrative: 50-year-old male with atypical nonexertional chest pain now resolved started less than an hour ago. No prior cardiac history no recent exertional chest pain or dyspnea. No history of DVT or PE. No leg pain or swelling no hemoptysis. Undergo cardiac workup. Initial EKG is unremarkable. Repeat exam patient is doing well. Became anxious the nurses had given him a milligram of Ativan he is more relaxed. To be discharged to home. I do not think this chest pain is cardiac etiology. He will be discharged home with chest pain of uncertain etiology. History & Record Review Discussion w/independent historian: Patient Additional record(s) reviewed:: Prior inpatient record, Prior outpatient record, Prior ED visit and Prior labs Lab Data Attestation: I reviewed the patient's lab results. Lab results narrative: CBC shows a white count of 14.9. H&H 14 and 42. Platelets 307. BMP shows a gap of 14. BUN and creatinine 25 and 0.7. Glucose 110. Initial troponin 18. 2-hour troponin is 19. Chest x-ray unremarkable. Labs: Laboratory Results - last 24 hr 08/09/25 08/09/25 14:20 16:15 WBC 14.9 H RBC 5.00 Hgb 14.0 Hct 42.9 MCV 85.8 MCH 28.0 MCHC 32.6 RDW Std Deviation 43.9 RDW Coeff of Dyllan 14.0 Plt Count 307 MPV 11.7 Immature Gran % (Auto) 0.500 Neut % (Auto) 68.4 Lymph % (Auto) 19.0 Callahan % (Auto) 7.9 Eos % (Auto) 3.5 Baso % (Auto) 0.7 Absolute Neuts (auto) 10.2 H Absolute Lymphs (auto) 2.84 Nucleated RBC % 0 Sodium 138 Potassium 4.7 Chloride 104 Carbon Dioxide 20.3 L Anion Gap 14 BUN 25 H Creatinine 0.71 Estim Creat Clear Calc 119.08 Est GFR (MDRD) Non-Af 111 BUN/Creatinine Ratio 34.9 H Glucose 110 H Calcium 9.8 Troponin T High Sens 18 Troponin T Hi Sens 2 Hr 19 Radiography Chest X-Ray - ED: 1 View, Read by ED Physician, Heart, Lungs, Mediastinum, Bony Structures, No Acute Disease and Chronic Changes Diagnostic Testing: Clinical Impression(s) from Imaging Studies Chest X-Ray 08/09/25 14:39 IMPRESSION: No acute cardiopulmonary process. Reading Location: [facility] Chest x-ray, portable, single view interpreted by myself shows no acute abnormality. Normal cardiac silhouette. Normal mediastinum normal lungs. Chronic changes. Rhythm Strip Rhythm Strip: Sinus Rhythm Rate: 93 Ectopy: None EKG Initial EKG: Attestation: I personally reviewed and interpreted this EKG as follows: Interpretation: Sinus Rhythm and No Acute Injury Pattern Comments: Normal sinus rhythm rate 93 no acute signs of NV or ischemia. No S1Q3T3. Discharge Plan Triage Chief Complaint: Chest Pain ED Provider: Chad Selby Dx/Rx/DC Orders Clinical Impression: Chest pain, History of stroke, History of hypertension Instructions: ED Chest Pain, Uncertain Cause Prescriptions: No Action acetaminophen 325 mg capsule 650 mg PO Q4H PRN (Reason: fever or pain) aspirin 81 mg capsule 81 mg PO DAILY atorvastatin [Lipitor] 80 mg tablet 80 mg PO QHS clonazepam [Klonopin] 0.5 mg tablet 0.5 mg PO PRN folic acid 1 mg tablet 1 mg PO DAILY escitalopram oxalate [Lexapro] 10 mg tablet 15 mg PO DAILY metoprolol tartrate 25 mg tablet 25 mg PO BID multivitamin [Daily Multi-Vitamin] Tablet 1 tab PO DAILY pantoprazole 40 mg tablet,delayed release (DR/EC) 40 mg PO DAILY thiamine HCl (vitamin B1) 100 mg tablet 100 mg PO DAILY tramadol 50 mg tablet 50 mg PO Q8H PRN (Reason: pain) hydroxyzine pamoate [Vistaril] 25 mg capsule 25 mg PO Q6H PRN (Reason: anxiety) tamsulosin [Flomax] 0.4 mg capsule 0.4 mg PO DAILY trazodone 50 mg tablet 25 mg PO QHS polyethylene glycol 3350 [ClearLax] 17 gram/dose powder 17 g PO DAILY magnesium hydroxide [Milk of Magnesia] 400 mg/5 mL suspension 2,400 mg PO DAILY PRN (Reason: constipation) melatonin 5 mg capsule 5 mg PO QHS loperamide [Anti-Diarrheal (loperamide)] 2 mg capsule 2 mg PO Q6H PRN (Reason: loose stool) guaifenesin [Adult Tussin Chest Congestion] 100 mg/5 mL liquid 200 mg PO Q4H PRN (Reason: cough) levetiracetam [Keppra] 500 mg tablet See Rx Instructions PO .COMPLEX Rx Instructions: Take 500 in am and 1000 mg at hs orally; alum-mag hydroxide-simeth [Antacid] 200-200-20 mg/5 mL suspension 30 ml PO Q8H PRN PRN (Reason: indigestion) lacosamide 200 mg tablet 200 mg PO BID pyridoxine (vitamin B6) 100 mg tablet 100 mg PO DAILY cholecalciferol (vitamin D3) 50 mcg (2,000 unit) capsule 50 mcg PO DAILY Primary Care Provider: Amadeo Zazueta Referrals: Amadeo Zazueta DO [Primary Care Provider, Medical] - 3-5 Days Activity Restrictions/Additional Instructions: Your labs, EKG and chest x-ray today were unremarkable. Follow-up with your primary care physician. Print Language: Samoan Disposition Disposition: Home, Self Care
[2025-08-09 15:11] LABS: Anion Gap 14 (5-15); BUN 25 mg/dL (4-19); BUN/Creat Ratio 34.9 RATIO (10-20); Calcium,Total 9.8 mg/dL (7.6-11.0); Carbon Dioxide 20.3 mmol/L (21.0-32.0); Chloride 104 mmol/L (98-108); Estimated Creatinine Clearance 119.08 ml/min (50-250); Glucose 110 mg/dL (70-99); Potassium 4.7 mmol/L (3.3-5.1); Troponin T High Sensitivity 18 ng/L (<=22)
[2025-08-09 15:30] VITALS: BP 120/85; PULSE 88; RESP 20; O2SAT 96
[2025-08-09 16:00] VITALS: BP 119/93; PULSE 94; RESP 23; O2SAT 97
[2025-08-09 16:45] LABS: Troponin T High Sens 2 HR 19 ng/L (<=22)
[2025-08-09 17:00] VITALS: BP 120/81; PULSE 91; RESP 23; O2SAT 98
[2025-08-09 17:20] LABS: Hematocrit 42.9 % (40-54); Hemoglobin 14.0 g/dL (13.0-16.5); Immature Granulocytes Count 0.070 X10^3/uL (0.0-0.0); Mean Corp Hgb Conc 32.6 g/dL (32-36); Mean Corpuscular Volume 85.8 fL (80-94); Mean Platelet Vol. 11.7 fl (6.2-12.0); NRBC Flagged by Analyzer 0 % (0-5); Platelet Count 307 K/mm3 (150-450); RBC Distribution Width CV 14.0 % (11.6-14.6); RBC Distribution Width SD 43.9 fl (35.1-43.9); Red Blood Count 5.00 M/mm3 (4.6-6.2); White Blood Count 14.9 K/mm3 (4.4-11.0)
[2025-08-09 18:00] VITALS: RESP 18
[2025-08-09 18:40] VITALS: BP 128/92; PULSE 112; RESP 20; TEMP 36.6; O2SAT 96
== END 2025-08-09 18:41 | disposition home or self-care (01) ==
PROVIDERS: Emergency Provider Emergency Medicine; Visit Provider Emergency Medicine
DX: R07.9 Chest pain, unspecified (principal); G40.909 Epilepsy, unspecified, not intractable, without status epilepticus; I10 Essential (primary) hypertension; Z86.73 Personal history of transient ischemic attack (TIA), and cerebral infarction without residual deficits; Z79.82 Long term (current) use of aspirin; Z79.899 Other long term (current) drug therapy; F41.9 Anxiety disorder, unspecified; K21.9 Gastro-esophageal reflux disease without esophagitis; F17.210 Nicotine dependence, cigarettes, uncomplicated
CPT/HCPCS: 71045; 80048; 84484; 85025; 93005; 96374; 99285; A4216

== ENCOUNTER 2025-08-12 16:15 | Emergency (ER) | payer MEDICAID, SELFPAY ==
[2025-08-12 16:16] VITALS: BP 129/80; PULSE 85; RESP 16; TEMP 36.8; O2SAT 98; BMI 25.2
--- NOTE | 2025-08-12 16:41 | EX.ED.DYSGE1 ---
HPI History of Present Illness Chief Complaint: Seizure Informant: patient Onset/Context/Timing Onset: Today Context: Sudden Onset Current Severity: Gone Maximum Severity: Mild Narrative Narrative: 50-year-old male history prior stroke with history of seizures. History of alcohol abuse and hypertension. Said he was drinking today. Believes he may have had a seizure. Denies any other complaints. Denies any trauma to his head. Currently he is symptom-free. Denies any recent illness or fever. He is not on blood thinners. Prior similar symptoms: Yes Recent Illness/Hospitalization: No [facility] Medical History Seizure Falls Abnormal gait Wernicke encephalopathy CVA (cerebral vascular accident) Hemiparesis Hemiplegia Malnutrition GERD (gastroesophageal reflux disease) Anxiety Depression Alcohol abuse HTN (hypertension) Home Medications ?Medication ?Instructions ?Recorded ?Last Taken ?Type acetaminophen 325 mg capsule 650 mg PO Q4H PRN fever or pain 07/22/25 Unknown History aspirin 81 mg capsule 81 mg PO DAILY 07/22/25 Unknown History atorvastatin 80 mg tablet (Lipitor) 80 mg PO QHS 07/22/25 Unknown History clonazepam 0.5 mg tablet (Klonopin) 0.5 mg PO DAILY PRN anxiety 07/22/25 Unknown History escitalopram oxalate 10 mg tablet 15 mg PO DAILY 07/22/25 Unknown History (Lexapro) folic acid 1 mg tablet 1 mg PO DAILY 07/22/25 Unknown History metoprolol tartrate 25 mg tablet 25 mg PO BID 07/22/25 Unknown History multivitamin (Daily Multi-Vitamin 1 tab PO DAILY 07/22/25 Unknown History tablet) pantoprazole 40 mg tablet,delayed 40 mg PO DAILY 07/22/25 Unknown History release thiamine HCl (vitamin B1) 100 mg 100 mg PO DAILY 07/22/25 Unknown History tablet tramadol 50 mg tablet 50 mg PO Q8H PRN pain 07/22/25 Unknown History guaifenesin 100 mg/5 mL oral 200 mg PO Q4H PRN cough 08/02/25 Unknown History liquid (Adult Tussin Chest Congestion) hydroxyzine pamoate 25 mg capsule 25 mg PO Q6H PRN anxiety 08/02/25 Unknown History (Vistaril) levetiracetam 500 mg tablet See Rx Instructions PO .COMPLEX 08/02/25 Unknown History (Keppra) loperamide 2 mg capsule 2 mg PO Q6H PRN loose stool 08/02/25 Unknown History (Anti-Diarrheal (loperamide)) magnesium hydroxide 400 mg/5 mL 2,400 mg PO DAILY PRN constipation 08/02/25 Unknown History oral suspension (Milk of Magnesia) melatonin 5 mg capsule 5 mg PO QHS PRN insomnia 08/02/25 Unknown History polyethylene glycol 3350 17 17 g PO DAILY 08/02/25 Unknown History gram/dose oral powder (ClearLax) tamsulosin 0.4 mg capsule (Flomax) 0.4 mg PO QHS 08/02/25 Unknown History trazodone 50 mg tablet 25 mg PO QHS 08/02/25 Unknown History aluminum-mag hydroxide-simethicone 30 ml PO Q8H PRN PRN indigestion 08/09/25 Unknown History 200 mg-200 mg-20 mg/5 mL oral susp (Antacid) cholecalciferol (vitamin D3) 50 50 mcg PO DAILY 08/09/25 Unknown History mcg (2,000 unit) capsule lacosamide 200 mg tablet 200 mg PO BID 08/09/25 Unknown History pyridoxine (vitamin B6) 100 mg 100 mg PO DAILY 08/09/25 Unknown History tablet Allergy/AdvReac Type Severity Reaction Status Date / Time atorvastatin Allergy PT UNSURE Verified 08/12/25 16:20 OF REACTION shellfish derived Allergy Nausea/Vom/ Verified 08/12/25 16:20 Diarrhea Social History Smoking Status: Current every day smoker tobacco type: cigarettes alcohol intake: current alcohol intake frequency: 3 or more drinks per day Alcohol type: beer substance use type: marijuana ROS ROS ED ROS Narrative Denies recent illness. Constitutional Constitutional ED: Denies chills or fever(s) Eyes Eyes: Denies blurry vision ENT ENT ED: Denies ear pain Cardiovascular Cardiovascular: Denies chest pain Respiratory/Chest Respiratory/Chest: Denies cough or dyspnea Gastrointestinal Gastrointestinal: Denies abdominal pain Genitourinary Genitourinary ED: Denies dysuria or hematuria Musculoskeletal Musculoskeletal: Denies arthralgias Integumentary Denies abscess Neurologic Neurologic: Denies headache(s) Psychiatric Psychiatric: Denies anxiety Endocrine Endocrinology: Denies cold intolerance Hematologic/Lymphatic Hematologic/Lymphatic: Reports none Allergic/Immunologic Allergic/Immunologic ED: Denies mouth swelling, tongue swelling or urticaria EXAM Physical Exam Narrative Exam Narrative: 50-year-old male sitting upright in bed. Vital signs stable afebrile. H EENT exam pupils round react to light. Moist mutes membranes. No bite or laceration to tongue. No facial droop or trauma. Neck nontender no meningismus. No lymphadenopathy. Back nontender. Lungs clear. Heart regular rhythm rate about 85 no murmur. Chest wall ribs nontender. Abdomen soft nontender. Moving all 4 extremities. Nontender no deformity. Normal bioinformatics associate strength. Normal dorsi plantarflexion. Patient is awake. Answering questions following commands. Const Vital Signs: 08/12/25 16:16 Temperature 98.3 F Temperature Source Oral Pulse Rate 85 Respiratory Rate 16 Blood Pressure 129/80 H Blood Pressure Mean 96 Pulse Ox 98 Oxygen Delivery Method Room Air Positive well nourished and well developed; Negative for obese, cachectic, contractures or unkempt General Appearance ED: well developed and NAD; Negative for unkempt, cachectic, contractures, cyanotic, diaphoretic or pallor Nutritional Appearance: Negative for cachectic or obese HEENT Reports moist mucous membranes Negative for trauma or tenderness Eyes PERRL and EOMs intact bilaterally Neck no lymphadenopathy, supple and no JVD Chest Wall inspection of chest normal and palpation of chest normal Resp normal respiratory effort and clear to auscultation bilaterally Auscultation: Negative for rales, rhonchi, wheezes or diminished lung sounds Cardio regular rate, regular rhythm, S1 normal heart sound, S2 normal heart sound and no murmurs GI normal to inspection, nondistended, normoactive bowel sounds, non-tender, non-distended and no masses Auscultation: normoactive bowel sounds Palpation: soft; Negative for tender, guarding or rebound tenderness present Back/Spine no CVA tenderness General Back: Negative for CVA tenderness Cervical Spine: Negative for cervical spine tenderness Thoracic Spine / Upper Back: Negative for thoracic spinal tenderness or paraspinal muscle tenderness Lumbar Spine / Lower Back: Negative for lumbar spinal tenderness Extremity normal to inspection General Extremety ED: Negative for edema or tenderness General Extremity: Negative for edema Neuro oriented x3 and CN's II-XII intact bilaterally Sensorium / Orientation: alert; Negative for orientation impaired, lethargic or stuporous Motor Exam: strength 5/5 throughout; Negative for general weakness or strength abnormal Psych Appearance: Negative for unkempt Skin no rashes or lesions noted and no wounds General Skin Exam: Negative for jaundice or pallor MDM MDM MDM Narrative Medical decision making narrative: 50-year-old recurrent seizure. Was drinking today. Patient had multiple CAT scans all unremarkable. There is no signs of head trauma today or any scalp or facial tenderness. I do not think he needs another CAT scan. He is not on blood thinners. I will obtain a CBC, chemistry and alcohol level. Repeat exam 5:23 PM patient is from the memory unit at a local [facility]. And will be discharged back to the facility. His labs are consistent with prior baseline. History & Record Review Discussion w/independent historian: Patient Additional record(s) reviewed:: Prior inpatient record, Prior outpatient record, Prior ED visit and Prior labs Lab Data Attestation: I reviewed the patient's lab results. Lab results narrative: CBC shows a white count 13.3 H&H of 12 and 37. Platelets 277. Electrolytes show gap 13. BUN and creatinine nineteen 0.5. Glucose 102. Alcohol less than 10. Basically negative. Labs: Laboratory Results - last 24 hr 08/12/25 16:23 WBC 13.3 H RBC 4.37 L Hgb 12.1 L Hct 37.3 L MCV 85.4 MCH 27.7 MCHC 32.4 RDW Std Deviation 44.3 H RDW Coeff of Dyllan 14.1 Plt Count 277 MPV 11.3 Immature Gran % (Auto) 1.400 H Neut % (Auto) 61.4 Lymph % (Auto) 20.5 [place] % (Auto) 8.9 Eos % (Auto) 7.0 H Baso % (Auto) 0.8 Absolute Neuts (auto) 8.2 H Absolute Lymphs (auto) 2.72 Nucleated RBC % 0 Sodium 139 Potassium 4.1 Chloride 106 Carbon Dioxide 20.4 L Anion Gap 13 BUN 19 Creatinine 0.57 L Estim Creat Clear Calc 148.33 Est GFR (MDRD) Non-Af 119 BUN/Creatinine Ratio 33.7 H Glucose 102 H Calcium 9.6 Ethyl Alcohol < 10.1 Discharge Plan Triage Chief Complaint: Seizure ED Provider: Chad Selby Dx/Rx/DC Orders Clinical Impression: Seizure, History of stroke Instructions: ED Seizure, Recurrent (Adult) Prescriptions: No Action acetaminophen 325 mg capsule 650 mg PO Q4H PRN (Reason: fever or pain) aspirin 81 mg capsule 81 mg PO DAILY atorvastatin [Lipitor] 80 mg tablet 80 mg PO QHS clonazepam [Klonopin] 0.5 mg tablet 0.5 mg PO DAILY PRN (Reason: anxiety) folic acid 1 mg tablet 1 mg PO DAILY escitalopram oxalate [Lexapro] 10 mg tablet 15 mg PO DAILY metoprolol tartrate 25 mg tablet 25 mg PO BID multivitamin [Daily Multi-Vitamin] Tablet 1 tab PO DAILY pantoprazole 40 mg tablet,delayed release (DR/EC) 40 mg PO DAILY thiamine HCl (vitamin B1) 100 mg tablet 100 mg PO DAILY tramadol 50 mg tablet 50 mg PO Q8H PRN (Reason: pain) hydroxyzine pamoate [Vistaril] 25 mg capsule 25 mg PO Q6H PRN (Reason: anxiety) tamsulosin [Flomax] 0.4 mg capsule 0.4 mg PO QHS trazodone 50 mg tablet 25 mg PO QHS polyethylene glycol 3350 [ClearLax] 17 gram/dose powder 17 g PO DAILY magnesium hydroxide [Milk of Magnesia] 400 mg/5 mL suspension 2,400 mg PO DAILY PRN (Reason: constipation) melatonin 5 mg capsule 5 mg PO QHS PRN (Reason: insomnia) loperamide [Anti-Diarrheal (loperamide)] 2 mg capsule 2 mg PO Q6H PRN (Reason: loose stool) guaifenesin [Adult Tussin Chest Congestion] 100 mg/5 mL liquid 200 mg PO Q4H PRN (Reason: cough) levetiracetam [Keppra] 500 mg tablet See Rx Instructions PO .COMPLEX Rx Instructions: Take 500 in am and 1000 mg at hs orally; alum-mag hydroxide-simeth [Antacid] 200-200-20 mg/5 mL suspension 30 ml PO Q8H PRN PRN (Reason: indigestion) lacosamide 200 mg tablet 200 mg PO BID pyridoxine (vitamin B6) 100 mg tablet 100 mg PO DAILY cholecalciferol (vitamin D3) 50 mcg (2,000 unit) capsule 50 mcg PO DAILY Primary Care Provider: Amadeo Zazueta Referrals: Amadeo Zazueta DO [Primary Care Provider, Medical] - 3-5 Days if not improving Activity Restrictions/Additional Instructions: Follow-up with your primary care physician. Continue current medications. Print Language: Persian Disposition Disposition: Home, Self Care
[2025-08-12 16:43] LABS: Hematocrit 37.3 % (40-54); Hemoglobin 12.1 g/dL (13.0-16.5); Immature Granulocytes Count 0.190 X10^3/uL (0.0-0.0); Mean Corp Hgb Conc 32.4 g/dL (32-36); Mean Corpuscular Volume 85.4 fL (80-94); Mean Platelet Vol. 11.3 fl (6.2-12.0); NRBC Flagged by Analyzer 0 % (0-5); Platelet Count 277 K/mm3 (150-450); RBC Distribution Width CV 14.1 % (11.6-14.6); RBC Distribution Width SD 44.3 fl (35.1-43.9); Red Blood Count 4.37 M/mm3 (4.6-6.2); White Blood Count 13.3 K/mm3 (4.4-11.0)
[2025-08-12 17:14] LABS: Alcohol, Blood (Medical)-Serum < 10.1 mg/dL (<=10.0); Anion Gap 13 (5-15); BUN 19 mg/dL (4-19); BUN/Creat Ratio 33.7 RATIO (10-20); Calcium,Total 9.6 mg/dL (7.6-11.0); Carbon Dioxide 20.4 mmol/L (21.0-32.0); Chloride 106 mmol/L (98-108); Estimated Creatinine Clearance 148.33 ml/min (50-250); Glucose 102 mg/dL (70-99); Potassium 4.1 mmol/L (3.3-5.1)
[2025-08-12 17:24] VITALS: BP 150/90; PULSE 87; RESP 20; TEMP 36.7; O2SAT 99
[2025-08-12 18:00] VITALS: BP 105/75; PULSE 72
[2025-08-12 19:00] VITALS: BP 150/90; PULSE 80; O2SAT 96
== END 2025-08-12 19:28 | disposition home or self-care (01) ==
PROVIDERS: Emergency Provider Emergency Medicine; Visit Provider Emergency Medicine
DX: R56.9 Unspecified convulsions (principal); I10 Essential (primary) hypertension; Z86.73 Personal history of transient ischemic attack (TIA), and cerebral infarction without residual deficits; Z79.82 Long term (current) use of aspirin; F41.9 Anxiety disorder, unspecified; F32.A Depression, unspecified; Z79.899 Other long term (current) drug therapy; K21.9 Gastro-esophageal reflux disease without esophagitis; F17.210 Nicotine dependence, cigarettes, uncomplicated
CPT/HCPCS: 80048; 82077; 85025; 99285; A4216

== ENCOUNTER → 2025-08-28 07:50 | Outpatient (REF) | payer MEDICARE, MEDICAID, SELFPAY ==
[2025-08-28 09:22] LABS: Hematocrit 46.3 % (40-54); Hemoglobin 14.8 g/dL (13.0-16.5); Mean Corp Hgb Conc 32.0 g/dL (32-36); Mean Corpuscular Volume 84.8 fL (80-94); Mean Platelet Vol. 11.2 fl (6.2-12.0); Platelet Count 317 K/mm3 (150-450); RBC Distribution Width CV 14.2 % (11.6-14.6); RBC Distribution Width SD 43.6 fl (35.1-43.9); Red Blood Count 5.46 M/mm3 (4.6-6.2); White Blood Count 13.1 K/mm3 (4.4-11.0)
[2025-08-28 09:41] LABS: Anion Gap 12 (5-15); BUN 18 mg/dL (4-19); BUN/Creat Ratio 23.8 RATIO (10-20); Calcium,Total 10.0 mg/dL (7.6-11.0); Carbon Dioxide 24.0 mmol/L (21.0-32.0); Chloride 105 mmol/L (98-108); Glucose 122 mg/dL (70-99); Potassium 4.8 mmol/L (3.3-5.1)
[2025-08-31 11:07] LABS: KEPPRA (LEVETIRACETAM) 11.7 ug/mL (10.0-40.0)
== END ==
LOC: OLS.SW 07:50
PROVIDERS: Visit Provider Family Medicine
DX: G40.89 Other seizures (principal); F41.9 Anxiety disorder, unspecified
CPT/HCPCS: 36415; 80048; 80177; 85027

== ENCOUNTER 2025-08-28 19:11 | Emergency (ER) | payer OTHER, MEDICAID, SELFPAY ==
[2025-08-28 19:13] VITALS: BP 92/60; PULSE 103; RESP 17; TEMP 37.5; O2SAT 98; BMI 26.2
--- NOTE | 2025-08-28 19:23 | RAD_ITS ---
PROCEDURE: CHEST PA AND LATERAL 08/28/2025 REASON FOR EXAM: FEVER TECHNIQUE: Procedure Code: RADCXR Modality: DX Procedure: CHEST PA AND LATERAL COMPARISON: 08/09/2025 FINDINGS: Hardware: None. Heart: The heart size is normal. Mediastinum: The mediastinal contour is unremarkable. Lungs: The lungs are clear. No pneumothorax or pleural effusion Bones: The bones are unremarkable. RAD/Chest PA and Lateral IMPRESSION: NO ACUTE FINDINGS. Reading [facility]
[2025-08-28 19:45] VITALS: BP 121/89; PULSE 78; RESP 17; O2SAT 97
[2025-08-28 19:45] LABS: Hematocrit 41.5 % (40-54); Hemoglobin 13.6 g/dL (13.0-16.5); Immature Granulocytes Count 0.100 X10^3/uL (0.0-0.0); Mean Corp Hgb Conc 32.8 g/dL (32-36); Mean Corpuscular Volume 83.7 fL (80-94); Mean Platelet Vol. 10.7 fl (6.2-12.0); NRBC Flagged by Analyzer 0 % (0-5); Platelet Count 296 K/mm3 (150-450); RBC Distribution Width CV 14.1 % (11.6-14.6); RBC Distribution Width SD 42.8 fl (35.1-43.9); Red Blood Count 4.96 M/mm3 (4.6-6.2); White Blood Count 11.7 K/mm3 (4.4-11.0)
[2025-08-28 19:55] LABS: Prothrombin Time (Protime)PT. 13.0 SECONDS (11.7-14.9)
[2025-08-28 20:00] VITALS: BP 121/93; PULSE 80; RESP 16; O2SAT 99
[2025-08-28 20:10] LABS: AST(SGOT) 33 U/L (<=37); Alanine Aminotransfer ALT/SGPT 42 U/L (<=46); Albumin, Serum 4.5 g/dL (3.5-5.0); Alkaline Phosphatase 94 U/L (40-129); Anion Gap 10 (5-15); BUN 21 mg/dL (4-19); BUN/Creat Ratio 27.7 RATIO (10-20); Calcium,Total 9.9 mg/dL (7.6-11.0); Carbon Dioxide 25.1 mmol/L (21.0-32.0); Chloride 106 mmol/L (98-108); Estimated Creatinine Clearance 107.51 ml/min (50-250); Globulin 2.8 g/dL (2.2-4.2); Glucose 108 mg/dL (70-99); Potassium 4.7 mmol/L (3.3-5.1)
--- NOTE | 2025-08-28 20:18 | EX.ED.DYSGE1 ---
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 He was at [facility]. He is a new client. Based on paperwork he arrived yesterday. Based on paperwork he has history hypertension, CVA, Warnicke's encephalopathy and seizure disorder. He is very pleasant right now. He is not oriented. Patient He denies head pain, visual disturbance, ringing in his ears or trouble with speech. He denies chest pain, pressure, tightness or heaviness. He denies shortness of breath or difficulty breathing. He denies abdominal pain, nausea, vomiting or diarrhea. He has no urologic symptoms. He Of note patient is a reliable informant due to his mental status and reason he is at [facility]. Recent Illness/Hospitalization: Yes [facility] Medical History Seizure Falls Abnormal gait Wernicke encephalopathy CVA (cerebral vascular accident) Hemiparesis Hemiplegia Malnutrition GERD (gastroesophageal reflux disease) Anxiety Depression Alcohol abuse HTN (hypertension) Home Medications ?Medication ?Instructions ?Recorded ?Last Taken ?Type acetaminophen 325 mg capsule 650 mg PO Q4H PRN fever or pain 07/22/25 Unknown History aspirin 81 mg capsule 81 mg PO DAILY 07/22/25 Unknown History atorvastatin 80 mg tablet (Lipitor) 80 mg PO QHS 07/22/25 Unknown History clonazepam 0.5 mg tablet (Klonopin) 0.5 mg PO DAILY PRN anxiety 07/22/25 Unknown History escitalopram oxalate 10 mg tablet 15 mg PO DAILY 07/22/25 Unknown History (Lexapro) folic acid 1 mg tablet 1 mg PO DAILY 07/22/25 Unknown History metoprolol tartrate 25 mg tablet 25 mg PO BID 07/22/25 Unknown History multivitamin (Daily Multi-Vitamin 1 tab PO DAILY 07/22/25 Unknown History tablet) pantoprazole 40 mg tablet,delayed 40 mg PO DAILY 07/22/25 Unknown History release thiamine HCl (vitamin B1) 100 mg 100 mg PO DAILY 07/22/25 Unknown History tablet tramadol 50 mg tablet 50 mg PO Q8H PRN pain 07/22/25 Unknown History guaifenesin 100 mg/5 mL oral 200 mg PO Q4H PRN cough 08/02/25 Unknown History liquid (Adult Tussin Chest Congestion) hydroxyzine pamoate 25 mg capsule 25 mg PO Q6H PRN anxiety 08/02/25 Unknown History (Vistaril) levetiracetam 500 mg tablet See Rx Instructions PO .COMPLEX 08/02/25 Unknown History (Keppra) loperamide 2 mg capsule 2 mg PO Q6H PRN loose stool 08/02/25 Unknown History (Anti-Diarrheal (loperamide)) magnesium hydroxide 400 mg/5 mL 2,400 mg PO DAILY PRN constipation 08/02/25 Unknown History oral suspension (Milk of Magnesia) melatonin 5 mg capsule 5 mg PO QHS PRN insomnia 08/02/25 Unknown History polyethylene glycol 3350 17 17 g PO DAILY 08/02/25 Unknown History gram/dose oral powder (ClearLax) tamsulosin 0.4 mg capsule (Flomax) 0.4 mg PO QHS 08/02/25 Unknown History trazodone 50 mg tablet 25 mg PO QHS 08/02/25 Unknown History aluminum-mag hydroxide-simethicone 30 ml PO Q8H PRN PRN indigestion 08/09/25 Unknown History 200 mg-200 mg-20 mg/5 mL oral susp (Antacid) cholecalciferol (vitamin D3) 50 50 mcg PO DAILY 08/09/25 Unknown History mcg (2,000 unit) capsule lacosamide 200 mg tablet 200 mg PO BID 08/09/25 Unknown History pyridoxine (vitamin B6) 100 mg 100 mg PO DAILY 08/09/25 Unknown History tablet Allergy/AdvReac Type Severity Reaction Status Date / Time atorvastatin Allergy PT UNSURE Verified 08/12/25 16:20 OF REACTION shellfish derived Allergy Nausea/Vom/ Verified 08/12/25 16:20 Diarrhea Social History Smoking Status: Current every day smoker tobacco type: cigarettes alcohol intake: current alcohol intake frequency: 3 or more drinks per day Alcohol type: beer substance use type: marijuana ROS ROS ED Review of Systems ROS Unobtainable: due to mental status and other Details: Review of systems per documentation HPI narrative. EXAM Physical Exam Const Vital Signs: 08/28/25 19:13 Temperature 99.5 F H Temperature Source Oral Pulse Rate 103 H Respiratory Rate 17 Blood Pressure 92/60 Blood Pressure Mean 70 Pulse Ox 98 Oxygen Delivery Method Room Air Positive well nourished and well developed General Appearance ED: well developed and NAD; Negative for cyanotic, diaphoretic or pallor HEENT Reports moist mucous membranes HEENT Narrative: Head is atraumatic and normocephalic. Ears are normal. Nares are patent. Eyes PERRL and EOMs intact bilaterally General Eye ED: Negative for pale conjunctiva or scleral icterus Neck no lymphadenopathy, supple and no JVD Chest Wall inspection of chest normal and palpation of chest normal Resp normal respiratory effort and clear to auscultation bilaterally Cardio regular rate, regular rhythm, S1 normal heart sound, S2 normal heart sound and no murmurs GI normal to inspection, nondistended, normoactive bowel sounds, non-tender, non-distended and no masses; Negative for hepatosplenomegaly Extremity normal to inspection Extremity Narrative: Patient has dried blood on his fingers. There is no obvious injury. There is no swelling, bruising, pain palpation over the phalanges, metacarpal bones, carpal bones or distal radius or ulna. Median, radial and ulnar function intact. Neuro No oriented x3, CN's II-XII intact bilaterally and no sensory deficits noted Sensorium / Orientation: alert Motor Exam: strength 5/5 throughout Psych mental status grossly normal Skin no rashes or lesions noted, no wounds and No skin turgor normal General Skin Exam: Negative for jaundice or pallor MDM MDM MDM Narrative Medical decision making narrative: Patient was treated with IV thiamine. Will obtain CBC to assess for obvious elevated white count to suggest infection. Electrolyte abnormality hypoglycemia etc. History & Record Review Additional record(s) reviewed:: Prior ED visit (Patient was seen August [address] Selby for seizures. He was seen August 09 for chest pain by Dr. Selby as well.) and Prior labs Lab Data Attestation: I reviewed the patient's lab results. Lab results narrative: White count is slightly elevated. There is no shift. H&H is normal. Indices are normal. Comprehensive metabolic panel is unremarkable. Glucose is slightly low at 108 with a normal CO2 anion gap. BUN to creatinine ratio is elevated 27-1. This reveals mild dehydration/acute renal insufficiency. Labs: Laboratory Results - last 24 hr 08/28/25 08/28/25 19:36 19:39 WBC 11.7 H RBC 4.96 Hgb 13.6 Hct 41.5 MCV 83.7 MCH 27.4 MCHC 32.8 RDW Std Deviation 42.8 RDW Coeff of Dyllan 14.1 Plt Count 296 MPV 10.7 Immature Gran % (Auto) 0.900 Neut % (Auto) 61.5 Lymph % (Auto) 24.7 [place] % (Auto) 9.3 Eos % (Auto) 2.9 Baso % (Auto) 0.7 Absolute Neuts (auto) 7.2 Absolute Lymphs (auto) 2.88 Nucleated RBC % 0 PT 13.0 INR 1.0 Sodium 141 Potassium 4.7 Chloride 106 Carbon Dioxide 25.1 Anion Gap 10 BUN 21 H Creatinine 0.76 Estim Creat Clear Calc 107.51 Est GFR (MDRD) Non-Af 109 BUN/Creatinine Ratio 27.7 H Glucose 108 H Lactic Acid 1.7 Calcium 9.9 Total Bilirubin 0.25 AST 33 ALT 42 Alkaline Phosphatase 94 Total Protein 7.4 Albumin 4.5 Globulin 2.8 Albumin/Globulin Ratio 1.6 POC Glucose 103 Radiography Chest X-Ray - ED: 2 View, Read by ED Physician (Patient is hyperaeration. There is no infiltrate, pneumothorax or effusion.), Normal, Heart, Mediastinum, Bony Structures and No Acute Disease Diagnostic Testing: Clinical Impression(s) from Imaging Studies Chest X-Ray 08/28/25 19:23 IMPRESSION: NO ACUTE FINDINGS. Reading Location: [facility] Treatment and Re-Evaluation :: Lexie of the [employer] social [employer] manager for the contacted [facility]. She informed them that he would be sent back since there is no medical indication for behavioral changes. Suspect this is due to new environment and the fact that he has Warnicke's encephalopathy. Discharge Plan Triage Chief Complaint: Confusion ED Provider: Kyle Lewis Dx/Rx/DC Orders Clinical Impression: Disruptive behavior, Hx of Wernicke's encephalopathy, History of CVA (cerebrovascular accident), Hypertension Instructions: ED Confusion Prescriptions: No Action acetaminophen 325 mg capsule 650 mg PO Q4H PRN (Reason: fever or pain) aspirin 81 mg capsule 81 mg PO DAILY atorvastatin [Lipitor] 80 mg tablet 80 mg PO QHS clonazepam [Klonopin] 0.5 mg tablet 0.5 mg PO DAILY PRN (Reason: anxiety) folic acid 1 mg tablet 1 mg PO DAILY escitalopram oxalate [Lexapro] 10 mg tablet 15 mg PO DAILY metoprolol tartrate 25 mg tablet 25 mg PO BID multivitamin [Daily Multi-Vitamin] Tablet 1 tab PO DAILY pantoprazole 40 mg tablet,delayed release (DR/EC) 40 mg PO DAILY thiamine HCl (vitamin B1) 100 mg tablet 100 mg PO DAILY tramadol 50 mg tablet 50 mg PO Q8H PRN (Reason: pain) hydroxyzine pamoate [Vistaril] 25 mg capsule 25 mg PO Q6H PRN (Reason: anxiety) tamsulosin [Flomax] 0.4 mg capsule 0.4 mg PO QHS trazodone 50 mg tablet 25 mg PO QHS polyethylene glycol 3350 [ClearLax] 17 gram/dose powder 17 g PO DAILY magnesium hydroxide [Milk of Magnesia] 400 mg/5 mL suspension 2,400 mg PO DAILY PRN (Reason: constipation) melatonin 5 mg capsule 5 mg PO QHS PRN (Reason: insomnia) loperamide [Anti-Diarrheal (loperamide)] 2 mg capsule 2 mg PO Q6H PRN (Reason: loose stool) guaifenesin [Adult Tussin Chest Congestion] 100 mg/5 mL liquid 200 mg PO Q4H PRN (Reason: cough) levetiracetam [Keppra] 500 mg tablet See Rx Instructions PO .COMPLEX Rx Instructions: Take 500 in am and 1000 mg at hs orally; alum-mag hydroxide-simeth [Antacid] 200-200-20 mg/5 mL suspension 30 ml PO Q8H PRN PRN (Reason: indigestion) lacosamide 200 mg tablet 200 mg PO BID pyridoxine (vitamin B6) 100 mg tablet 100 mg PO DAILY cholecalciferol (vitamin D3) 50 mcg (2,000 unit) capsule 50 mcg PO DAILY Primary Care Provider: Amadeo Zazueta Referrals: Amadeo Zazueta DO [Primary Care Provider, Medical] - As Needed Print Language: Lebanese Disposition Disposition: Home, Self Care
[2025-08-28 20:45] VITALS: BP 113/89; PULSE 76; RESP 16; O2SAT 99
--- NOTE | 2025-08-28 21:17 | NURSING ---
This RN to bedside to administer Thiamine. pt states that's not going in my veins, there is shit in there and it will spray all over me. this RN educated pt that it was in face a medication ordered by the doctor. Pt states there is shit in there and if it sprays all over me, I will go to [facility]. Dr. Lewis notified.
[2025-08-28 22:54] VITALS: BP 106/81; PULSE 92; TEMP 37.1; O2SAT 98
[2025-08-28 23:50] VITALS: BP 113/82; PULSE 90; RESP 16; TEMP 37; O2SAT 100
--- NOTE | 2025-08-29 00:02 | ED.RN ---
RN to RN report called to [facility].
--- NOTE | 2025-08-29 00:43 | ED.RN ---
Called for updated ETA, spoke with Laurie. Updated ETA now another 60-90 minutes
[2025-08-29 01:00] VITALS: RESP 17
== END 2025-08-29 02:22 | disposition home or self-care (01) ==
PROVIDERS: Emergency Provider Emergency Medicine; Visit Provider Emergency Medicine
DX: F91.9 Conduct disorder, unspecified (principal); F03.90 Unspecified dementia, unspecified severity, without behavioral disturbance, psychotic disturbance, mood disturbance, and anxiety; G40.89 Other seizures; I10 Essential (primary) hypertension; R41.0 Disorientation, unspecified; Z86.73 Personal history of transient ischemic attack (TIA), and cerebral infarction without residual deficits; F41.9 Anxiety disorder, unspecified; Z79.899 Other long term (current) drug therapy; F32.A Depression, unspecified; K21.9 Gastro-esophageal reflux disease without esophagitis; F17.210 Nicotine dependence, cigarettes, uncomplicated; E51.2 Wernicke's encephalopathy
CPT/HCPCS: 36415; 71046; 80048; 80053; 80177; 82962; 83605; 85025; 85027; 85610; 99285